=== PATIENT | female | born 1930 | race Caucasian/White ===

== ENCOUNTER → 2017-02-04 | Outpatient (CLI) | payer MEDICARE, OTHER, MEDICAID ==
[~2017-02-04] MED LIST: ALDACTONE 25MG25 MG PO; ASPIRIN REGIMEN81 MG PO; ATORVASTATIN CA10 MG PO; ATORVASTATIN CA20 MG PO; BRILINTA90 MG PO; CARVEDILOL 1212.5 MG PO; CARVEDILOL3.125 MG PO; DIGOXIN0.125 MG PO; ESTRACE 1MG TABL1 MG PO; FUROSEMIDE40 MG PO; GABAPENTIN300 MG PO; ISOSORBIDE MONO30 MG PO; K-DUR 20MEQ TA20 MEQ PO; KEFLEX 500MG.500 MG PO; LASIX 40MG. TAB40 MG PO; LEVOTHYROXINE0.2 MG PO; LISINOPRIL2.5 M1 PO; MAXZIDE 25 MG-31 TAB PO; MAXZIDE 50 MG-71 TAB OR; METOPROLOL100 MG PO; NAPROXEN500 MG PO; NITROGLYCERIN0.4 MG SL; OXAZEPAM 10MG C10 M1 PO; POTASSIUM CHLO20 ME2 PO; TRAZODONE150 MG PO; TRIAMTERENE/HCT1 CA1 PO; TYLENOL W/CODEI1 TA2 PO; VITAMIN D32000 I2 PO
--- NOTE | 2017-02-04 15:25 | RADIOLOGY REPORT PS360 ---
LOWER LEG-RT HISTORY: INJURY OF RT LOWER LEGinjury of right lower leg fell one week ago with contusion swelling anterior aspect of leg previous vein stripping Patient Age: 86 years: Female Ordering Physician: Angela SINGH TECHNIQUE: 2 view right lower leg COMPARISON : FINDINGS . Tibia and fibula intact with no fracture evident. Bones well mineralized Numerous vascular clips along the medial aspect of the right lower leg from previous vein stripping 2 views of ankle and knee included on this lower leg study are grossly unremarkable although these joints not optimally visualized. There is soft tissue swelling is seen overlying anterior aspect of the mid shaft of tibia. Bone beneath this area intact. IMPRESSION: Right lower leg intact.. No fracture. Mild soft tissue overlying mid shaft of tibia noted
== END ==
LOC: RAD 13:59
DX: S89.91XD Unspecified injury of right lower leg, subsequent encounter (principal)

== ENCOUNTER 2017-02-14 16:33 | Inpatient (IN) | payer MEDICARE, OTHER, MEDICAID ==
[~2017-02-14] VITALS: Ht 165.1 cm; Wt 68.9 kg
[~2017-02-14 16:33] MED LIST changes: -ALDACTONE 25MG25 MG PO; -ASPIRIN REGIMEN81 MG PO; -BRILINTA90 MG PO; -CARVEDILOL 1212.5 MG PO; -DIGOXIN0.125 MG PO
[2017-02-14 16:34] VITALS: BP 136/87
--- NOTE | 2017-02-14 17:03 | Emergency Room Report ---
History of Present Illness Time Seen by [id number] Presenting Problem in Triage Pt arrived:Wheelchair Presenting Problem:PT DAUGHTER REPORT PT HAS BEEN CONFUSED ALL DAY, STATES SHE WAS NORMAL YESTERDAY. STATES TOOK PT TO PCP WHO SENT PT TO ER FOR FURTHER EVALUATION Onset of symptoms date/time:02/14/17/ or onset unknown for:MEDICAL HX UNKNOWN Treatment Prior to Arrival: [employer] Provided by: Sepsis Risk Assessment: Temp: 97.9 B/P: 136/87 MAP: 103 Pulse: 109 Resp: 18 Recent fever? N Clinical Suspician of Infection? N Mental Status: 2 - Mildly Altered Sepsis Risk:Low Sepsis Risk Have you (or family members/close friends) recently traveled outside the [place]? N If Yes, where/when: Have you had exposure to infectious disease within the past month? N TB? Other? Specify: Pt with hx PD; chronic tremulousness. Family reports that she seems a little confused today. The patient believes it is 1970. She states she got up this morning, felt normal, ate a honeybun, then felt sick to her stomach. She points to her chest when she says, "I just feel real sick". No SOB, no syncope; she lives alone. ALLERGIES Coded Allergies: No Known Allergies (05/29/15) Home Medications Active Scripts NITROGLYCERIN (Nitrostat) 0.4 MG SL [id number] PRN CHEST PAIN #30 TAB Prov: 12/23/16 Carvedilol (Carvedilol 3.125MG) 3.125 MG PO BID #60 TAB Ref 1 Prov: 12/23/16 Isosorbide Mononitrate (Isosorbide Mononitrate ER) 30 MG PO DAILY #30 TAB Ref 1 Prov: 12/23/16 Lisinopril 2.5 MG PO DAILY #30 TAB Ref 1 Prov: 12/23/16 Oxazepam 10 MG PO BID #60 CAPSULE Ref 1 Prov: 12/23/16 Reported Medications POTASSIUM CHL (Potassium Chloride) 40 MEQ PO BID CHOLECALCIFEROL (VITAMIN D3) (Vitamin D-3) 2,000 IU PO DAILY Gabapentin (Gabapentin 300MG) 600 MG PO QHS Gabapentin (Gabapentin 300MG) 300 MG PO DAILY ATORVASTATIN CALCIUM (ATORVASTATIN 20MG) 20 MG PO QHS Estradiol (Estrace 1MG Tablet) 1 MG PO QHS Trazodone Hcl (Trazodone HCl) 150 MG PO QHS Levothyroxine Sodium 0.2 MG PO DAILY Furosemide (Furosemide 40MG) 40 MG PO DAILY History Medical History General CAD? Yes Angina: Yes SC: Yes Hypertension? Yes Hyperlipidemia? Yes CHF? No DVT? No PE? No COPD? No Asthma? No Anemia? No GERD? No Gastric ulcers? No GI Bleed? No Hernia? No Thyroid Problems? No Hypothyroidism? No CVA? No Seizures? No Diabetes? No Renal Insuffiency? No End Stage Renal Disease? No UTI? No Stones? No BPH? No GB Disease: No Nephritic Syndrome? No Asplenia? No Hepatitis? No Sickle Cell Disease? No Arthritis? No Migraines? No Cataracts? No Glaucoma? No MRSA? No HIV? No TB? No Anxiety? No Depression? No Cancer? No More? Yes Additional hx: TREMORS, PARKISONS Immunization Hx DT/Tetanus Unknown Flu 2015-16FSN Pneumonia Received In Past Surgical Hx Previous Surgery?Y Coronary Artery Bypass TUBAL LIGATION HYSTERECTOMY CARDIAC STENTS Social History Smoking Hx Smoker: Never Smoker Tobacco: No Alcohol Alcohol: No Review of Systems All Other Systems Reviewed and Negative Cardiovascular see HPI Gastrointestinal see HPI, nausea Genitourinary frequency. denies: dysuria, hematuria. Psychiatric/Neurological see HPI Physical Exam Vital Signs Vital Signs Date Time Temp Pulse Resp B/P Pulse O2 O2 Flow FiO2 Ox Delivery Rate 02/14 1813 109 18 146/93 96 02/14 1634 97.9 109 18 136/87 93 General Appearance normal appearance, WD/WN, no apparent distress (PD tremors noted) Eye Exam - bilateral eye normal exam, bilateral eye PERRL, bilateral eye EOMI (no diplopia) Neck normal inspection, non-tender, supple, full range of motion Respiratory Status Yes: trachea midline, chest symmetrical, non tender chest. No: respiratory distress, tender on palpation, use of accessory muscles, pain on inspiration, pain on expiration, productive cough, non productive cough. Lung Sounds bilateral: normal breath sounds, lungs clear. Cardiovascular normal exam, regular rate/rhythm, no peripheral edema, no gallop, no JVD, no murmur, no rub Gastrointestinal normal bowel sounds, normal exam, non tender, soft, no organomegaly, no pulsatile mass, no guarding, no rebound Extremities non-tender, normal range of motion, normal capillary refill, no calf tenderness, steristrips to pretibial area, no secondary infection or drainage noted. Strength 5 Upper Ext (L), 5 Upper Ext (R), 5 Lower Ext (L), 5 Lower Ext (R) Neurologic PD tremor, coarse, especially with head and neck region; speech clear ; alert; she knows her name and location, disoriented to year. Nonfocal exam. Medical Decision Making LABS/Meds/Orders Pt receiving controlled substance in ED? No Results/Orders Laboratory Tests 02/14/17 1830: WBC 9.9, RBC 3.92 L, Hgb 11.5 L, Hct 35.7 L, MCV 91.0, RDW 14.1, Plt Count 235, MPV 7.9, Gran % 80.7 H, Gran # 8.0 H, Lymphocytes % 11.0, Monocytes % 6.9 , Eosinophils % 1.0, Basophils % 0.4, Lymphocytes # 1.1, Monocytes # 0.7, Eosinophils # 0.1, Basophils # 0.0, PUBS MCHC 32.1, MCH 29.3 02/14/17 1730: Lipase 131 02/14/17 1730: Creatine Kinase 58, CK-MB (CK-2) Rel Index 10.5 *H, CK and CKMB Interp 6.1 H, Troponin I 1.34 H 02/14/17 1730: Sodium 141, Potassium 4.1, Chloride 105, Carbon Dioxide 29, BUN 13, Creatinine 1.0, Estimated Creat Clear 46 L, Estimated GFR (MDRD) 52 L, Glucose 128 H, Calcium 9.2, Total Bilirubin 0.7, AST 8 L, ALT 8 L, Alkaline Phosphatase 93, Total Protein 7.2, Albumin 3.8, Globulin 3.4 H, Albumin/Globulin Ratio 1.1 02/14/17 1700: Urine Color YELLOW, Urine Appearance CLEAR, Urine pH 5.0, Ur Specific [place] 1.020, Urine Protein NEGATIVE, Urine Ketones NEGATIVE, Urine Blood NEGATIVE, Urine Nitrate NEGATIVE, Urine Bilirubin NEGATIVE, Urine Urobilinogen 0.2, Ur Leukocyte Esterase NEGATIVE, Urine RBC OCC, Urine WBC OCC, Ur Squamous Epith Cells 20-50, Urine Bacteria 2+, Hyaline Casts 10-20, Urine Glucose NEGATIVE Current Medication Orders Sig/Xu Start time Last Medication Dose Route Stop Time Status Admin Aspirin 324 MG ONCE ONE 02/14 184 DC PO 02/14 184 Metoprolol Succinate 25 MG Q6H6 02/14 184 AC PO Sodium Chloride 10 ML PRN PRN 02/14 1645 AC IV 02/15 1641 Orders Procedure Date/time Status DIET-NOTHING BY MOUTH 02/15 B Active Decision to admit 02/[address] HEAD REQ 02/14 1720 Complete CHEST-AP VIEW ONLY 02/14 1720 Active LIPASE 02/14 172 Complete ELECTROCARDIOGRAM REQUEST 02/14 1711 Active CARDIAC ENZYMES 02/14 1711 Complete CULTURE, URINE 02/14 1700 Active IV SALINE LOCK 02/14 1641 Active URINALYSIS/COMPLETE 02/14 1641 Complete CBC WITH AUTO DIFF 02/14 164 Complete CHEM 12 PROFILE 02/14 1641 Complete CM/EKG CM/EKG EKG rate (109 Stach occ APC), no evid. of ischemic chgs, normal QRS (first degree AVB) XRAY/CT/US XRAY/CT/US XRAY chest XR interpretation by reviewed by me Xray Results normal/NAD, CM, apical thickening, gonzalez. wires; no change from 12/21/[address] interpretation by reviewed by me (report reviewed) Time results known: 1806 CT Results normal/NAD, R sphenoid sinus disease, neg acute per report Consult MD Physician Consult Consult/PCP Dr. Wayne: admit PCP; gave med orders for cardiac meds Time Called 1820 Reason Cardiology eval/care Progress ED Progress Notes 1 Date 02/14/17 Time 1837 Comment Patient is not uncomfortable. Family states she has always said she would not want to be resuscitated or put on a ventilator. She is a little bit confused but is able to verbalize this with son at bedside as witness. They are comfortable with medical intervention. ED Progress Notes 2 Date 02/14/17 Time 190 Comment The son and daughter and patient have spent time discussing code status and now have updated me that they definitely want CPR done and intubation. We reviewed risks vs. benefits in detail and this is their final decision prior to transfer to floor, to be full code. Departure Departure Time of Disposition 1901 Disposition Still a Patient Clinical Impression Primary Impression: Elevated troponin Secondary Impressions: Confusion Condition STABLE Referrals [facility] (Family) ED Critical Care Critical Care No at 1906
[2017-02-14 17:05] LABS: URINE BILIRUBIN - DIPSTICK NEGATIVE (NEG); URINE BLOOD NEGATIVE (NEG)
[2017-02-14 17:21] LABS: URINE SQUAMOUS CELLS 20-50 #/hpf (0-5)
--- NOTE | 2017-02-14 17:55 | RADIOLOGY REPORT PS360 ---
CT HEAD W/O CONTRAST HISTORY: Confusion, altered mental status, altered level of consciousness CONFUSED, HX PD ORDERING PHYSICIAN: Maggy Abdul MD PATIENT AGE: 87 years COMPARISON: 12/21/2016 TECHNIQUE: Axial images obtained without contrast. Brain and bone windows reviewed. FINDINGS: No midline shift, mass effect, intracranial hemorrhage, hydrocephalus, or extra-axial fluid collection is evident. There is generalized atrophy. Diffuse vascular calcification is noted. The calvarium has an unremarkable appearance. No mastoid effusion. Moderate opacification involves the right aspect of the sphenoid sinus. IMPRESSION: 1. No change with no acute finding. 2. Right sphenoid sinus disease
[2017-02-14 18:44] LABS: LYMPH # 1.1 K/mm3 (0.7-4.5)
[2017-02-14 18:45] LABS: HEMOGLOBIN 11.5 g/dL (12.2-16.2)
--- NOTE | 2017-02-14 20:31 | RADIOLOGY REPORT PS360 ---
CHEST-AP VIEW ONLY Ordering physician: Maggy Abdul MD Age: 87 years Female INDICATION: chest symptomsmalaise, nausea PROCEDURE: AP portable upright chest. In wheelchair. COMPARISON Prior chest film from 12/21/2016 & May 2015 used as comparison FINDINGS: . Previous sternotomy likely CABG again noted. Cardiomegaly is more evident in 2014 but similar to the December 2016 exam.. Tortuous aorta. .. Additional vascular engorgement today. With likely mild CHF compared previous studies. . accentuation markings right perihilar region to the right infrahilar region. More so than left likely related to the centralVascular prominence versus possibly some mild airway thickening right greater than left. No pleural effusions. . Ana and mediastinal structures appear similar again noting calcified aortic knob and tortuous descending aorta IMPRESSION ---- Cardiomegaly. Sternotomy likely CABG. vascular engorgement/ suspect mild vascular congestion compared to prior studies.. -Most notable right perihilar and right infrahilar region.. No pleural effusion
[2017-02-14 20:48] VITALS: BP 164/93
[2017-02-14 21:02] VITALS: BP 128/89
[2017-02-14 21:06] VITALS: BP 128/89
[2017-02-15] VITALS (15 sets, daily range): BP systolic 104–146; BP diastolic 54–91
[2017-02-15 06:52] LABS: HEMOGLOBIN 12.3 g/dL (12.2-16.2); LYMPH # 1.2 K/mm3 (0.7-4.5); LYMPH % 9.9 % (10-50.0)
--- NOTE | 2017-02-15 07:16 | HISTORY AND PHYSICAL REPORT ---
Demographics: Admit date: 02/14/17 Chief complaint: Confusion PRIMARY DIAGNOSIS: NON-st ELEVATION MYOCARDIAL INFARCTION Allergies: Coded Allergies: No Known Allergies (05/29/15) History of present illness: History of present illness: 87-year-old female with known coronary artery disease and ischemic cardiomyopathy presented to the hospital after being seen in the office with confusion. Patient was referred to the emergency department for workup. Patient reported a one day history of increasing confusion at home with generalized weakness and onset of nausea. Patient also reported chest pain. This morning she indicates pain in the upper chest. She cannot describe the pain other than saying it hurt. Workup in the emergency department revealed an elevated troponin. Dr. Wayne was contacted and he recommended loading the patient with aspirin Brillinta. Patient has been admitted and was also placed on home beta blockers, lisinopril and atorvastatin. This morning the patient continues to complain of nausea and feeling hot. She is oriented to person and place but not year. Past medical history: Family HX Family Hx Insignificant No Diabetes No CAD Yes Hypertension Yes Hyperlipidemia Yes Cancer Yes TB No Immunization HX DT/Tetanus Unknown Flu 2014-FSN Pneumonia Received In Past TB Test in last year Yes Result Negative General CAD? Yes Angina: Yes CA: Yes Hypertension? Yes Hyperlipidemia? Yes CHF? No DVT? No PE? No COPD? No Asthma? No Anemia? No GERD? No Gastric ulcers? No GI Bleed? No Hernia? No Thyroid Problems? No Hypothyroidism? No CVA? No Seizures? No Diabetes? No Renal Insuffiency? No UTI? No Stones? No BPH? No GB Disease: No Nephritic Syndrome? No Asplenia? No Hepatitis? No Sickle Cell Disease? No Arthritis? No Migraines? No Cataracts? No Glaucoma? No MRSA? No HIV? No TB? No Anxiety? No Depression? No Cancer? No More? Yes Additional hx: TREMORS, PARKISONS Past Surgical HX Previous Surgery?Y Coronary Artery Bypass TUBAL LIGATION HYSTERECTOMY CARDIAC STENTS Current home meds: Active Scripts NITROGLYCERIN (Nitrostat) 0.4 MG SL [id number] PRN CHEST PAIN #30 TAB Prov: 12/23/16 Carvedilol (Carvedilol 3.125MG) 3.125 MG PO BID #60 TAB Ref 1 Prov: 12/23/16 Isosorbide Mononitrate (Isosorbide Mononitrate ER) 30 MG PO DAILY #30 TAB Ref 1 Prov: 12/23/16 Lisinopril 2.5 MG PO DAILY #30 TAB Ref 1 Prov: 12/23/16 Oxazepam 10 MG PO BID #60 CAPSULE Ref 1 Prov: 12/23/16 Reported Medications POTASSIUM CHL (Potassium Chloride) 40 MEQ PO BID CHOLECALCIFEROL (VITAMIN D3) (Vitamin D-3) 2,000 IU PO DAILY Gabapentin (Gabapentin 300MG) 600 MG PO QHS Gabapentin (Gabapentin 300MG) 300 MG PO DAILY ATORVASTATIN CALCIUM (ATORVASTATIN 20MG) 20 MG PO QHS Estradiol (Estrace 1MG Tablet) 1 MG PO QHS Trazodone Hcl (Trazodone HCl) 150 MG PO QHS Levothyroxine Sodium 0.2 MG PO DAILY Furosemide (Furosemide 40MG) 40 MG PO DAILY Social Hx: Smoking HX Tobacco No Are you/the child exposed to second-hand smoke: No Alcohol Alcohol: No Hx of Drug Use Drug Use? No Patien't marital status is Patient's support system is good Review of systems: Constitutional No: chills, diaphoresis, fever. Respiratory cough, shortness of breath. Cardiovascular chest pain Gastrointestinal/Abdominal nausea Genitourinary no symptoms reported. Musculoskeletal no symptoms reported. Neurological Yes: tremors. Exam: Lab data for last 24 hours: Laboratory Tests 02/15/17 0622: Sodium 143, Potassium 5.0, Chloride 107, Carbon Dioxide 29, BUN 18, Creatinine 1.0, Estimated Creat Clear 45 L, Estimated GFR (MDRD) 52 L, Glucose 128 H, Calcium 9.3, WBC 12.4 H, RBC 4.32, Hgb 12.3, Hct 39.5, MCV 91.4, RDW 14.2, Plt Count 247, MPV 7.7, Gran % 82.9 H, Gran # 10.3 H, Lymphocytes % 9.9 L, Monocytes % 6.6, Eosinophils % 0.4, Basophils % 0.2, Lymphocytes # 1.2, Monocytes # 0.8, Eosinophils # 0.1, Basophils # 0.0, PUBS MCHC 31.1 L, MCH 28.4 02/14/17 1830: WBC 9.9, RBC 3.92 L, Hgb 11.5 L, Hct 35.7 L, MCV 91.0, RDW 14.1, Plt Count 235, MPV 7.9, Gran % 80.7 H, Gran # 8.0 H, Lymphocytes % 11.0, Monocytes % 6.9 , Eosinophils % 1.0, Basophils % 0.4, Lymphocytes # 1.1, Monocytes # 0.7, Eosinophils # 0.1, Basophils # 0.0, PUBS MCHC 32.1, MCH 29.3 02/14/171729: Lipase 131 02/14/171729: Creatine Kinase 58, CK-MB (CK-2) Rel Index 10.5 *H, CK and CKMB Interp 6.1 H, Troponin I 1.34 H 02/14/171729: Sodium 141, Potassium 4.1, Chloride 105, Carbon Dioxide 29, BUN 13, Creatinine 1.0, Estimated Creat Clear 46 L, Estimated GFR (MDRD) 52 L, Glucose 128 H, Calcium 9.2, Total Bilirubin 0.7, AST 8 L, ALT 8 L, Alkaline Phosphatase 93, Total Protein 7.2, Albumin 3.8, Globulin 3.4 H, Albumin/Globulin Ratio 1.1 02/14/171699: Urine Color YELLOW, Urine Appearance CLEAR, Urine pH 5.0, Ur Specific [place] 1.020, Urine Protein NEGATIVE, Urine Ketones NEGATIVE, Urine Blood NEGATIVE, Urine Nitrate NEGATIVE, Urine Bilirubin NEGATIVE, Urine Urobilinogen 0.2, Ur Leukocyte Esterase NEGATIVE, Urine RBC OCC, Urine WBC OCC, Ur Squamous Epith Cells 20-50, Urine Bacteria 2+, Hyaline Casts 10-20, Urine Glucose NEGATIVE Microbiology 02/14 1700 URINE CC: Urine Culture - RECD Admission vital signs: 1ST Vital Signs Result Date Time Pulse Ox 93 02/14 1634 B/P 136/87 02/14 1634 Temp 97.9 02/14 1634 Pulse 109 02/14 1634 Resp 18 02/14 1634 O2 Delivery ROOM AIR 02/15 2048 O2 Flow Rate 2 02/14 2206 Exam General appearance: alert, awake, no acute distress, HEAD TREMOR Eyes: anicteric Cardiovascular: regular rate & rhythm Respiratory: COARSE BREATH SOUNDS BILATERALLY WITH FAINT RHONCHI ABD: soft, no tenderness Extremities: moves all Plan: Problem List 1. Non-ST elevation myocardial infarction (NSTEMI) 2. Ischemic cardiomyopathy 3. Hypertension Plan: 1. Continue patient's home medications 2. Cardiology consult 3. Patient's lung exam is abnormal I will repeat her chest x-ray later today after cardiology evaluation is complete
--- NOTE | 2017-02-15 07:57 | CONSULT NOTE ---
Standard Demographics Patient Demo Date of Consultation: 02/15/17 Referring Provider: Alban Saldivar MD Reason for Consultation: Elevated troponin/NSTEMI PRIMARY DIAGNOSIS: NON-st ELEVATION MYOCARDIAL INFARCTION Problem list Problem list: 1. CAD A. 7 vessel CABG, about 1996 B. Coronary stents placed about 2005 with notation of unusual anatomy in that all coronary arteries arise from the RCA. C. Echo, 2012, severe LV dysfunction with EF 20-25%, akinetic apex. D. Echo, 12/2016, EF 20% with apical akinesis. 2. Essential tremor 3. Hypertension 4. Hyperlipidemia 5. Carotid artery stenosis A. Carotid ultrasound, 2014 with 20-49% SUZY stenosis. 6. Chronic kidney disease, stage III History of present illness: History of present illness: 87-year-old female with known coronary artery disease and ischemic cardiomyopathy presented to the hospital after being seen in the office with confusion. Patient was referred to the emergency department for workup. Patient reported a one day history of increasing confusion at home with generalized weakness and onset of nausea. Patient also reported chest pain. This morning she indicates pain in the upper chest. She cannot describe the pain other than saying it hurt. Workup in the emergency department revealed an elevated troponin. Dr. Wayne was contacted and he recommended loading the patient with aspirin Brillinta. Patient has been admitted and was also placed on home beta blockers, lisinopril and atorvastatin. This morning the patient continues to complain of nausea and feeling hot. She is oriented to person and place but not year. The above per Dr. Saldivar's Patient describes an intermittent burning sensation in the chest without aggravating or alleviating symptoms. Symptoms were present during evaluation this morning resolved after only a couple minutes. Patient is oriented to person and month. She thinks it is 2008. Past Medical History: General: Hypertension Yes CVA No Seizures No TB No COPD No Asthma No Diabetes No Angina Yes OH Yes Hyperlipidemia Yes Urinary No Cancer No Rheumatic H.D. No Ulcers No MRSA No GB Disease No Additional hx TREMORS, PARKISONS Past Surgical HX: Previous Surgery?Y Coronary Artery Bypass TUBAL LIGATION HYSTERECTOMY CARDIAC STENTS Allergies Coded Allergies: No Known Allergies (05/29/15) Home medications: Active Scripts NITROGLYCERIN (Nitrostat) 0.4 MG SL [id number] PRN CHEST PAIN #30 TAB Prov: 12/23/16 Carvedilol (Carvedilol 3.125MG) 3.125 MG PO BID #60 TAB Ref 1 Prov: 12/23/16 Isosorbide Mononitrate (Isosorbide Mononitrate ER) 30 MG PO DAILY #30 TAB Ref 1 Prov: 12/23/16 Lisinopril 2.5 MG PO DAILY #30 TAB Ref 1 Prov: 12/23/16 Oxazepam 10 MG PO BID #60 CAPSULE Ref 1 Prov: 12/23/16 Reported Medications POTASSIUM CHL (Potassium Chloride) 40 MEQ PO BID CHOLECALCIFEROL (VITAMIN D3) (Vitamin D-3) 2,000 IU PO DAILY Gabapentin (Gabapentin 300MG) 600 MG PO QHS Gabapentin (Gabapentin 300MG) 300 MG PO DAILY ATORVASTATIN CALCIUM (ATORVASTATIN 20MG) 20 MG PO QHS Estradiol (Estrace 1MG Tablet) 1 MG PO QHS Trazodone Hcl (Trazodone HCl) 150 MG PO QHS Levothyroxine Sodium 0.2 MG PO DAILY Furosemide (Furosemide 40MG) 40 MG PO DAILY Current Medications: Current Medications Enoxaparin Sodium 70 MG BID SC Furosemide 40 MG DAILY PO (CAN) Gabapentin 300 MG DAILY PO Isosorbide Mononitrate 30 MG DAILY PO Lisinopril 2.5 MG DAILY PO Furosemide 20 MG ONCE ONE IV (UNV) Metoprolol Succinate 0 .STK-MED ONE PO (DC) Ondansetron HCl 4 MG Q6HP PRN IV Ondansetron HCl 0 .STK-MED ONE .ROUTE (DC) Metoprolol Succinate 0 .STK-MED ONE PO (DC) Atorvastatin Calcium 20 MG QHS PO Carvedilol 3.125 MG BID PO Enoxaparin Sodium 73.936 MG BID SC (DC) Gabapentin 600 MG QHS PO Oxazepam 10 MG BID PO Potassium Chloride 40 MEQ BID PO Nitroglycerin 0.4 MG [id number] PRN SL Sodium Chloride 10 ML PRN PRN IV Ticagrelor 180 MG DAILY PO (UNV) Aspirin 0 .STK-MED ONE .ROUTE (DC) Ticagrelor 180 MG DAILY-DM PO (DC) Aspirin 324 MG ONCE ONE PO (DC) Metoprolol Succinate 25 MG Q6H6 PO Sodium Chloride 10 ML PRN PRN IV Immunization HX DT/Tetanus Unknown Flu [id number] Pneumonia RECEIVED IN PAST TB Test in last year Yes Result Negative Family history Family HX Family Hx Insignificant No Diabetes No CAD Yes Hypertension Yes Hyperlipidemia Yes Cancer Yes TB No Social Hx: Smoking HX Tobacco No Are you/the child exposed to second-hand smoke: No Alcohol Alcohol: No Hx of Drug Use Drug Use? No Review of systems: Constitutional No: no symptoms reported. Respiratory SOB with excertion. Cardiovascular chest pain Gastrointestinal/Abdominal nausea Genitourinary No: no symptoms reported. Musculoskeletal No: no symptoms reported. Neurological Yes: tremors. Exam: Admission Vital Signs: 1ST Vital Signs Result Date Time Pulse Ox 93 02/14 1634 B/P 136/87 02/14 1634 Temp 97.9 02/14 1634 Pulse 109 02/14 1634 Resp 18 02/14 1634 O2 Delivery ROOM AIR 02/14 2048 O2 Flow Rate 2 02/14 2206 Last Vital Signs: Vital Signs Result Date Time Pulse Ox 91 02/15 0720 B/P 115/85 02/15 0720 O2 Delivery OXYGEN 02/15 0720 Temp 97.9 02/15 0720 Pulse 100 02/15 0720 Resp 20 02/15 0720 O2 Flow Rate 2 02/15 0649 Exam General appearance: awake, no acute distress Neck: carotid bruit Cardiovascular: regular rate and rhythm with faint high-pitched squeaking systolic ejection murmur noted at the LEFT upper sternal border radiating towards the neck. Respiratory: Bi-basilar rales noted with audible wheezing. ABD: soft, no tenderness Extremities: trace edema bilaterally with palpable pulses of the lower extremities bilaterally. Patient has a cut on her lower LEFT leg with Steri- Strips in place. It is in the healing process. Neuro: alert, resting tremor noted. Again patient alert and oriented to place name and month but not year. Laboratory data: Laboratory Tests 02/15/17621: Sodium 143, Potassium 5.0, Chloride 107, Carbon Dioxide 29, BUN 18, Creatinine 1.0, Estimated Creat Clear 45 L, Estimated GFR (MDRD) 52 L, Glucose 128 H, Calcium 9.3 02/15/17 0622: B-Natriuretic Peptide 1140 H, WBC 12.4 H, RBC 4.32, Hgb 12.3, Hct 39.5, MCV 91.4, RDW 14.2, Plt Count 247, MPV 7.7, Gran % 82.9 H, Gran # 10.3 H, Lymphocytes % 9.9 L, Monocytes % 6.6, Eosinophils % 0.4, Basophils % 0.2, Lymphocytes # 1.2, Monocytes # 0.8, Eosinophils # 0.1, Basophils # 0.0, PUBS MCHC 31.1 L, MCH 28.4 02/14/17 1830: WBC 9.9, RBC 3.92 L, Hgb 11.5 L, Hct 35.7 L, MCV 91.0, RDW 14.1, Plt Count 235, MPV 7.9, Gran % 80.7 H, Gran # 8.0 H, Lymphocytes % 11.0, Monocytes % 6.9 , Eosinophils % 1.0, Basophils % 0.4, Lymphocytes # 1.1, Monocytes # 0.7, Eosinophils # 0.1, Basophils # 0.0, PUBS MCHC 32.1, MCH 29.3 02/14/17 173: Lipase 131 02/14/17 173: Creatine Kinase 58, CK-MB (CK-2) Rel Index 10.5 *H, CK and CKMB Interp 6.1 H, Troponin I 1.34 H 02/14/171729: Sodium 141, Potassium 4.1, Chloride 105, Carbon Dioxide 29, BUN 13, Creatinine 1.0, Estimated Creat Clear 46 L, Estimated GFR (MDRD) 52 L, Glucose 128 H, Calcium 9.2, Total Bilirubin 0.7, AST 8 L, ALT 8 L, Alkaline Phosphatase 93, Total Protein 7.2, Albumin 3.8, Globulin 3.4 H, Albumin/Globulin Ratio 1.1 02/14/171699: Urine Color YELLOW, Urine Appearance CLEAR, Urine pH 5.0, Ur Specific [place] 1.020, Urine Protein NEGATIVE, Urine Ketones NEGATIVE, Urine Blood NEGATIVE, Urine Nitrate NEGATIVE, Urine Bilirubin NEGATIVE, Urine Urobilinogen 0.2, Ur Leukocyte Esterase NEGATIVE, Urine RBC OCC, Urine WBC OCC, Ur Squamous Epith Cells 20-50, Urine Bacteria 2+, Hyaline Casts 10-20, Urine Glucose NEGATIVE Microbiology Date/Time Procedure - Status Source Growth 02/14 1700 Urine Culture - RES URINE CC Plan: Assessment: 1. Elevated troponin consistent with non-ST elevation myocardial infarction. Electrocardiogram shows sinus rhythm with first-degree AV block and incomplete LEFT bundle branch block without acute ST segment changes. 2. Known ischemic cardiomyopathy with ejection fraction of approximately 20-25 percent. 3. Congestive heart failure with elevated BNP 1140 and evidence of congestive heart failure on chest x-ray. 4. Known coronary artery disease with previous bypass and coronary stenting. 5. History of hypertension 6. Chronic kidney disease stage II 7. History of hyperlipidemia 8. History of underlying dementia 9. History of essential tremor Recommendations: 1. Discussed with Dr. Wayne. We'll repeat cardiac enzymes. If enzymes continue to rise then consider proceeding with cardiac catheterization. 2. Continue standard treatment for congestive heart failure including diuretics, SANDRINE inhibitor, beta dee and spironolactone therapy. at 0942
--- NOTE | 2017-02-15 09:12 | PHARMACY CLINIC NOTE ---
Patient Demographics Patient Demographics Admission date: 02/15/17 Date: 02/15/17 Time: 0911 Allergies Coded Allergies: No Known Allergies (05/29/15) HEIGHT- FT: 5 IN: 5.00 K.782 VTE General Information Labs: Laboratory Tests 02/15 02/14 0622 1830 Hematology Hgb (12.2 - 16.2 g/dL) 12.3 11.5 L Hct (37.0 - 47.0 %) 39.5 35.7 L Plt Count (142 - 424 K/mm3) 247 235 Disclaimer The following section includes nursing documentation that has been pulled in for pharmacy review. Patient's VTE score: 4 Patient's VTE Risk: LOW RISK Clinical trial participant? No VTE prophylaxis [id number] [id number] VTE prophylaxis ordered? Yes Type of prophylaxis/treatment: Lovenox at 0911
--- NOTE | 2017-02-15 10:23 | RADIOLOGY REPORT PS360 ---
CHEST-PORTABLE HISTORY: COUGH, CHF ORDERING PHYSICIAN: Alban Saldivar MD PATIENT AGE: 87 years COMPARISON: 02/14/2017 FINDINGS: There is cardiomegaly. There has been a prior median sternotomy. Previously noted vascular and coarse but has shown some improvement. There has been interval development of consolidation in the right lower lung zone suspicious for an area of pneumonia. The remaining lungs are clear. IMPRESSION: 1. Improvement in vascular congestion. 2. Interval development of right lower lobe infiltrate
--- NOTE | 2017-02-15 12:50 | RADIOLOGY REPORT PS360 ---
CARDIAC CATHETERIZATION DATE OF CATHETERIZATION:02/15/2017 12:24 PM PROCEDURES: 1. Left heart catheterization 2. Left ventriculogram 3. Selective coronary angiogram 4. Left internal mammary angiography 5. Selective engagement of the saphenous vein graft to the right coronary artery 6. Elective engagement of the saphenous vein graft to the circumflex artery 7. Drug-eluting stent deployment to the proximal left anterior descending artery INDICATION FOR TEST: 1. Acute non-ST elevation myocardial infarction 2. Coronary artery disease 3. History of coronary artery bypass grafting Informed consent was obtained prior to the procedure. COMPLICATIONS: None ESTIMATED BLOOD LOSS: Less than 10 ml. TECHNIQUE: One percent lidocaine was used to anesthetize the right groin. The right femoral artery was accessed via the Seldinger technique. A 4-Angolan sheath was placed in the right femoral artery. Over a 3 J-wire a JL 4 JR4 catheter were used to perform left heart catheterization left ventriculogram and selective coronary angiography. Nonselective angiography was performed involving the left internal mammary artery. Selective engagement was performed using the JR4 catheter into the 2 vein grafts one to the right coronary artery and the other one to the circumflex artery. At the end of the diagnostic angiogram 7000 units of heparin was administered intravenously creating an ACT of 300 seconds. An additional 2000 units of heparin was administered intravenously after the ACT of 300 was obtained. The 4 Angolan sheath was exchanged for a 6 Angolan sheath and a 3 DRC guide catheter was used intubate the right coronary artery. A choice PT extra-support wire was then placed in the right coronary artery and then into the proximal mid distal left anterior descending artery. A 2 mm x 12 mm balloon was taken at 20 barbara to predilate and this was followed by a 2.25 x 22 mm resolute [place] stent deployed at 20 barbara in the proximal LAD reducing the stenosis to 0%. BRENNAN-3 flow was present before and after the procedure involving the LAD. At the end of the procedure the apparatus was removed the groin is reprepped closure changed sheath was removed good hemostasis was achieved using Perclose device patient was transferred to the postop holding area in stable condition ANGIOGRAPHIC RESULTS: 1. The left anterior descending artery originates from the proximal dominant right coronary artery which resides within the right coronary cusp. Proximally there is a focal 90% stenosis. The mid LAD is then occluded and fills via the left internal mammary artery. 2. The circumflex artery originates from the proximal right coronary artery which resides in the right coronary cusp. This vessel has proximal 30% stenoses and sequential 60 and 50% stenoses in the distal segment along an area that is 2.5 mm in diameter. 3. The right coronary artery is a dominant vessel and results in size in the right coronary cusp and is occluded proximally. Distally the vessel fills via a dense collateral network from mostly the circumflex artery via a Kugel collateral 4. The PATEL ventriculogram reveals moderate left ventricular dilatation with anterior wall hypokinesis estimated ejection fraction 20-25% 5. The left ventricular end-diastolic pressure 10 mmHg 6. The left internal mammary artery is a widely patent graft which makes its anastomosis on the mid to distal LAD and does not backfill the [place] vessel. The antegrade flow from the LOPEZ graft supplies a moderate amount of distal and apical anterior wall 7. The saphenous vein graft to the right coronary artery is proximally occluded 8. The saphenous vein graft to the first and second obtuse marginal artery is widely patent graft with a proximal 40% eccentric stenosis IMPRESSION: 1. 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 Severe to critical disease in the proximal LAD 3. Successful stenting the proximal LAD severe to critical disease reduced to 0% with 1 drug-eluting stent 4. Persistent moderate stenosis in the [place] circumflex artery which still supplies a large amount of myocardium primarily via dense collateral network 5. Chronically occluded right coronary artery which fills via a dense collateral Kugel network primarily through the circumflex artery 6. Chronically occluded saphenous vein graft to the right coronary artery 7. Nonflow limiting disease in the saphenous vein graft to the first and second obtuse marginal artery that does not backfill or communicate with the [place] circumflex artery 8. Patent LOPEZ graft to the mid and distal LAD which supplies the distal anterior and apical wall which does not backfill or communicate in a retrograde manner with the proximal LAD system 9. Severe left ventricular dysfunction with large anterior wall defect 10. Normal left ventricular end-diastolic pressure PLAN: 1. Brilinta 90 mg twice a day 2. Aspirin 81 mg daily 3. Standard therapy for systolic heart failure including carvedilol and kristina inhibitors 4. Standard therapy with Loop diuretics combined with spironolactones 5. Digoxin 0.125 daily 6. High intensity statin therapy with an LDL goal less than 55 7. Avoidance of tobacco products 8. Cardiac rehabilitation 9. I do not believe patient is an appropriate candidate for a lifevest. In 40 days we can reassess her ejection fraction and discuss with patient and family whether or not she has a candidate for an AICD. My initial inclination or impression would be not to place a defibrillator however I believe it is appropriate to offer the patient and the family the standard of care as well as the risks benefits of the procedure.
[2017-02-16] VITALS (10 sets, daily range): BP systolic 100–121; BP diastolic 62–78
--- NOTE | 2017-02-16 06:38 | ACUTE CARE PROGRESS NOTE (QUA) ---
Progress Notes Subjective Date 02/16/17 Time 0636 Note Patient underwent successful stenting of the left anterior descending yesterday. She tells me this morning she feels better. She denies nausea. She does not remember much of the events of yesterday. She denies shortness of breath. Repeat chest x-ray yesterday revealed a RIGHT lower lobe pneumonia. She is awake and alert this morning. Lungs have faint rales at the RIGHT lung base. Heart has a regular rate and rhythm. Abdomen is soft and nontender. Continue Levaquin for pneumonia. Transfer out of step down this morning. Continue beta dee, SANDRINE inhibitor, diuretics. Objective Findings Last VS-Temp:98.3 B/P:120/74 Pulse:87 Resp:20 SaO2:100 OXYGEN Last weight lbs:153 oz:7 K.598 Method:Bed Scales Assessment/Plan Problem List 1. Non-ST elevation myocardial infarction (NSTEMI) 2. Ischemic cardiomyopathy 3. Hypertension Patient condition Stable Plan: continue current care This inpt stay is expected to cross 2 MNs from start of care Yes at 0637
--- NOTE | 2017-02-16 11:38 | ACUTE CARE PROGRESS NOTE (QUA) ---
Progress Notes Subjective Date 02/16/17 Time 0930 Note 87 yo WF in bed in NAD. States she is feeling better without further indigestion symptoms since her coronary stent placed yesterday. Objective Findings Last VS-Temp:97.6 B/P:114/62 Pulse:88 Resp:20 SaO2:98 OXYGEN Last weight lbs:153 oz:7 K.598 Method:Bed Scales Exam General appearance: alert, awake, no acute distress Cardiovascular: regular rate & rhythm Respiratory: rhonchi Reviewed: medications, vital signs, lab results Assessment/Plan Problem List 1. Non-ST elevation myocardial infarction (NSTEMI) Assessment/Plan: SRIDHAR to prox LAD, on DAPT. 2. Ischemic cardiomyopathy Assessment/Plan: On coreg, SANDRINE, spironolactone, digoxin and furosemide 3. Hypertension Assessment/Plan: controlled Patient condition Stable Plan: Continue current meds. BMP in AM due to slight increase in BUN today. With patient having some orthostatic dizziness this AM, will decrease diuretics for now. This inpt stay is expected to cross 2 MNs from start of care Yes at 3282
[2017-02-17] VITALS (9 sets, daily range): BP systolic 96–130; BP diastolic 44–73
[2017-02-17 06:11] LABS: LYMPH # 1.1 K/mm3 (0.7-4.5)
[2017-02-17 06:29] LABS: HEMOGLOBIN 10.9 g/dL (12.2-16.2)
--- NOTE | 2017-02-17 07:01 | ACUTE CARE PROGRESS NOTE (QUA) ---
Progress Notes Subjective Date 02/17/17 Time 0700 Note Patient reports no chest pain. She did have some nausea yesterday and became lightheaded with ambulation. She has been weaned off oxygen. She appears well. Lungs still have a faint crackle at the RIGHT lung base. Heart has a regular rate and rhythm. Skin shows multiple ecchymosis on the arms. Continue PT. Increase carvedilol 12.5 mg by mouth twice a day. Continue furosemide, spironolactone, lisinopril. We're waiting to hear back from [facility] in regards to [place] [facility] to continue Levaquin for her pneumonia Objective Findings Last VS-Temp:98.2 B/P:130/59 Pulse:92 Resp:16 SaO2:94 OXYGEN Last weight lbs:151 oz:9 K.748 Method:Bed Scales Laboratory Tests 02/17/17 0600: Sodium 140, Potassium 4.1, Chloride 104, Carbon Dioxide 32, BUN 32 H, Creatinine 1.2 H, Estimated Creat Clear 36 L, Estimated GFR (MDRD) 42 L, Glucose 103, Calcium 8.9, WBC 7.4, RBC 3.75 L, Hgb 10.9 L, Hct 33.3 L, MCV 88.8, RDW 14.2, Plt Count 185, MPV 8.1, Gran % 73.1, Gran # 5.4, Lymphocytes % 15.0, Monocytes % 9.1, Eosinophils % 2.6, Basophils % 0.2, Lymphocytes # 1.1, Monocytes # 0.7, Eosinophils # 0.2, Basophils # 0.0, PUBS MCHC 32.7, MCH 29.1 Assessment/Plan Problem List 1. Non-ST elevation myocardial infarction (NSTEMI) 2. Ischemic cardiomyopathy 3. Hypertension Patient condition Improving Plan: continue current care This inpt stay is expected to cross 2 MNs from start of care Yes at 0701
--- NOTE | 2017-02-17 07:01 | ACUTE CARE PROGRESS NOTE (QUA) ---
Progress Notes Subjective Date 02/17/17 Time 0700 Note Patient reports no chest pain. She did have some nausea yesterday and became lightheaded with ambulation. She has been weaned off oxygen. She appears well. Lungs still have a faint crackle at the RIGHT lung base. Heart has a regular rate and rhythm. Skin shows multiple ecchymosis on the arms. Continue PT. Increase carvedilol 12.5 mg by mouth twice a day. Continue furosemide, spironolactone, lisinopril. We're waiting to hear back from [facility] in regards to nursing home to continue Levaquin for her pneumonia Objective Findings Last VS-Temp:98.2 B/P:130/59 Pulse:92 Resp:16 SaO2:94 OXYGEN Last weight lbs:151 oz:9 K.748 Method:Bed Scales Laboratory Tests 02/17/17 0600: Sodium 140, Potassium 4.1, Chloride 104, Carbon Dioxide 32, BUN 32 H, Creatinine 1.2 H, Estimated Creat Clear 36 L, Estimated GFR (MDRD) 42 L, Glucose 103, Calcium 8.9, WBC 7.4, RBC 3.75 L, Hgb 10.9 L, Hct 33.3 L, MCV 88.8, RDW 14.2, Plt Count 185, MPV 8.1, Gran % 73.1, Gran # 5.4, Lymphocytes % 15.0, Monocytes % 9.1, Eosinophils % 2.6, Basophils % 0.2, Lymphocytes # 1.1, Monocytes # 0.7, Eosinophils # 0.2, Basophils # 0.0, PUBS MCHC 32.7, MCH 29.1 Assessment/Plan Problem List 1. Non-ST elevation myocardial infarction (NSTEMI) 2. Ischemic cardiomyopathy 3. Hypertension Patient condition Improving Plan: continue current care This inpt stay is expected to cross 2 MNs from start of care Yes at 0701
--- NOTE | 2017-02-17 08:20 | ACUTE CARE PROGRESS NOTE (QUA) ---
Progress Notes Subjective Date 02/17/17 Time 0812 Note 87 yo WF in bed eating breakfast in NAD. No complaints of indigestion discomfort. Still unsteady when up out of bed. Planning to go to [place] in AM. Objective Findings Last VS-Temp:98.2 B/P:130/59 Pulse:92 Resp:16 SaO2:94 OXYGEN Last weight lbs:151 oz:9 K.748 Method:Bed Scales Exam General appearance: alert, awake, no acute distress Cardiovascular: regular rate & rhythm Respiratory: clear to auscultation ABD: soft Reviewed: medications, vital signs, lab results Assessment/Plan Problem List 1. Non-ST elevation myocardial infarction (NSTEMI) Assessment/Plan: Continue DAPT 2. Ischemic cardiomyopathy Assessment/Plan: EF about 20%. Will reassess as outpatient but pt not felt to be a candidate for AICD. 3. Hypertension Assessment/Plan: Controlled 4. Systolic CHF with reduced left ventricular function, NYHA class 3 Assessment/Plan: Will need close monitoring of I/O and renal functions to decide on tolerable doses of diuretics without causing dehydration and worsening of unsteadiness when ambulating. Will repeat CXR in AM and BMP. Will decrease lasix to 20 mg daily in setting of spironolactone therapy. Patient condition Stable Plan: See above. This inpt stay is expected to cross 2 MNs from start of care Yes at 0820
--- NOTE | 2017-02-17 15:38 | RADIOLOGY REPORT PS360 ---
CHEST(2 VIEWS-NOT PORTABLE) HISTORY: Shortness of air, pneumonia, CHF Follow up pneumonia and CHF ORDERING PHYSICIAN: Alban Saldivar MD PATIENT AGE: 87 years COMPARISON: 02/15/2017 FINDINGS: There has been a prior median sternotomy. There is mild cardiomegaly without failure. There are small bilateral pleural effusions. Calcified granuloma once again noted in the right midlung. Right lower lobe infiltrate has improved. IMPRESSION: Improvement in right lower lobe infiltrate with small bilateral pleural effusions
[2017-02-18 03:54] VITALS: BP 136/82
--- NOTE | 2017-02-18 07:42 | ACUTE CARE PROGRESS NOTE (QUA) ---
Progress Notes Subjective Date 02/18/17 Time 0740 Patient/family reports: feeling better, no complaints Objective Findings Last VS-Temp:98.1 B/P:136/82 Pulse:90 Resp:22 SaO2:93 ROOM AIR Last weight lbs:152 oz:0 K.946 Method:Bed Scales Exam General appearance: alert, awake, no acute distress Cardiovascular: regular rate & rhythm Respiratory: clear to auscultation Assessment/Plan Problem List 1. Non-ST elevation myocardial infarction (NSTEMI) 2. Ischemic cardiomyopathy 3. Hypertension 4. Systolic CHF with reduced left ventricular function, NYHA class 3 5. Pneumonia of right lower lobe due to infectious organism Patient condition Improving Plan: initiate discharge plan This inpt stay is expected to cross 2 MNs from start of care Yes at 0741
--- NOTE | 2017-02-18 07:45 | Discharge Summary ---
Demographics Admit date: 02/14/17 Discharge date: 02/18/17 Discharge diagnoses Problem List 1. Non-ST elevation myocardial infarction (NSTEMI) 2. Ischemic cardiomyopathy 3. Hypertension 4. Systolic CHF with reduced left ventricular function, NYHA class 3 5. Pneumonia of right lower lobe due to infectious organism History of present illness History of present illness 87-year-old female with known coronary artery disease and ischemic cardiomyopathy presented to the hospital after being seen in the office with confusion. Patient was referred to the emergency department for workup. Patient reported a one day history of increasing confusion at home with generalized weakness and onset of nausea. Patient also reported chest pain. This morning she indicates pain in the upper chest. She cannot describe the pain other than saying it hurt. Workup in the emergency department revealed an elevated troponin. Dr. Wayne was contacted and he recommended loading the patient with aspirin Brillinta. Patient has been admitted and was also placed on home beta blockers, lisinopril and atorvastatin. This morning the patient continues to complain of nausea and feeling hot. She is oriented to person and place but not year. The above per Dr. Saldivar's Patient was admitted on the evening of the . She underwent cardiology consultation on the with subsequent cardiac catheterization. Patient has abnormal coronary anatomy with RIGHT coronary artery being dominant and vessels originating from the RIGHT coronary artery. She required stent to the left anterior descending. She will require joint platelet therapy for 1 year. Patient has severe LV dysfunction and will be placed on standard regimen of beta dee , SANDRINE inhibitor, spironolactone, furosemide. On the morning of the patient was noted to have mild dyspnea and abnormal lung exam. Repeat chest x-ray confirmed the presence of RIGHT lower lobe pneumonia and the patient was started on Levaquin. After cardiac catheterization on the the patient was continued on IV antibiotics and physical therapy was consult to. Patient was felt to be appropriate for group home level of care. [facility] was contacted and accepted the patient. On the patient was discharged to [facility]. Mental status: Oriented to person and place Rehab potential: Fair Prognosis: Fair Medications Medications: Discharge meds are as noted. Follow up Follow up in office in: 3 WEEKS with: Alban Saldivar MD at 0744
--- NOTE | 2017-02-18 07:45 | Discharge Summary ---
Demographics Admit date: 02/14/17 Discharge date: 02/18/17 Discharge diagnoses Problem List 1. Non-ST elevation myocardial infarction (NSTEMI) 2. Ischemic cardiomyopathy 3. Hypertension 4. Systolic CHF with reduced left ventricular function, NYHA class 3 5. Pneumonia of right lower lobe due to infectious organism History of present illness History of present illness 87-year-old female with known coronary artery disease and ischemic cardiomyopathy presented to the hospital after being seen in the office with confusion. Patient was referred to the emergency department for workup. Patient reported a one day history of increasing confusion at home with generalized weakness and onset of nausea. Patient also reported chest pain. This morning she indicates pain in the upper chest. She cannot describe the pain other than saying it hurt. Workup in the emergency department revealed an elevated troponin. Dr. Wayne was contacted and he recommended loading the patient with aspirin Brillinta. Patient has been admitted and was also placed on home beta blockers, lisinopril and atorvastatin. This morning the patient continues to complain of nausea and feeling hot. She is oriented to person and place but not year. The above per Dr. Saldivar's Patient was admitted on the evening of the . She underwent cardiology consultation on the with subsequent cardiac catheterization. Patient has abnormal coronary anatomy with RIGHT coronary artery being dominant and vessels originating from the RIGHT coronary artery. She required stent to the left anterior descending. She will require joint platelet therapy for 1 year. Patient has severe LV dysfunction and will be placed on standard regimen of beta dee , SANDRINE inhibitor, spironolactone, furosemide. On the morning of the patient was noted to have mild dyspnea and abnormal lung exam. Repeat chest x-ray confirmed the presence of RIGHT lower lobe pneumonia and the patient was started on Levaquin. After cardiac catheterization on the the patient was continued on IV antibiotics and physical therapy was consult to. Patient was felt to be appropriate for [facility] level of care. [facility] was contacted and accepted the patient. On the patient was discharged to [facility]. Mental status: Oriented to person and place Rehab potential: Fair Prognosis: Fair Medications Medications: Discharge meds are as noted. Follow up Follow up in office in: 3 WEEKS with: Alban Saldivar MD at 0744
[2017-02-18] MEDS ORDERED: ASPIRIN REGIMEN81 MG PO (07:48)
[2017-02-18] MEDS ORDERED: ALDACTONE 25MG25 MG PO (07:48)
[2017-02-18] MEDS ORDERED: DIGOXIN0.125 MG PO (07:48)
[2017-02-18] MEDS ORDERED: CARVEDILOL 1212.5 MG PO (07:48)
[2017-02-18] MEDS ORDERED: BRILINTA90 MG PO (07:48)
[2017-02-18 08:00] VITALS: BP 137/71
[2017-02-18 11:00] VITALS: BP 137/71
== END 2017-02-18 11:40 | DRG 247 ==
LOC: ER 16:33 → 2ND 18:52 → ER 18:52 → 2ND 20:41 → ICU 02-15 13:01 → 2ND 02-15 18:34
PROVIDERS: Emergency Medicine; Family Medicine; Internal Medicine
PROC: 027034Z Dilation of Coronary Artery, One Artery with Drug-eluting Intraluminal Device, Percutaneous Approach (ICD-10-PCS; principal; 2017-02-15 10:00)
PROC: 4A023N7 Measurement of Cardiac Sampling and Pressure, Left Heart, Percutaneous Approach (ICD-10-PCS; principal; 2017-02-15 10:00)
PROC: B2111ZZ Fluoroscopy of Multiple Coronary Arteries using Low Osmolar Contrast (ICD-10-PCS; principal; 2017-02-15 10:00)
PROC: B2131ZZ Fluoroscopy of Multiple Coronary Artery Bypass Grafts using Low Osmolar Contrast (ICD-10-PCS; principal; 2017-02-15 10:00)
PROC: B2151ZZ Fluoroscopy of Left Heart using Low Osmolar Contrast (ICD-10-PCS; principal; 2017-02-15 10:00)
DX: I21.4 Non-ST elevation (NSTEMI) myocardial infarction (principal); I42.9 Cardiomyopathy, unspecified; I50.20 Unspecified systolic (congestive) heart failure; I25.719 Atherosclerosis of autologous vein coronary artery bypass graft(s) with unspecified angina pectoris; Z95.1 Presence of aortocoronary bypass graft; I25.119 Atherosclerotic heart disease of native coronary artery with unspecified angina pectoris; Z95.5 Presence of coronary angioplasty implant and graft; I10 Essential (primary) hypertension; I25.5 Ischemic cardiomyopathy
CPT/HCPCS: C1725; C1760; C1769; C1876; C1894; G0378; J1644; J2405

== ENCOUNTER 2017-03-13 11:35 | Observation (INO) | payer MEDICARE, OTHER, MEDICAID ==
[~2017-03-13] VITALS: Ht 165.1 cm; Wt 69.0 kg
[~2017-03-13 11:35] MED LIST changes: +ALDACTONE 25MG25 MG PO; +ASPIRIN REGIMEN81 MG PO; +BRILINTA90 MG PO; +CARVEDILOL 1212.5 MG PO; +DIGOXIN0.125 MG PO
[2017-03-13 11:42] VITALS: BP 123/57
--- NOTE | 2017-03-13 12:17 | Emergency Room Report ---
History of Present Illness Time Seen by 1203 Presenting Problem in Triage Pt arrived:Wheelchair Presenting Problem:PT STATES SHE WAS ATTEMPTING TO GO TO BED LAST NIGHT WHEN SHE SAYS HER LEGS "GAVE OUT" AND SHE FELL DOWN THE GROUND ON HER BOTTOM; STATES THIS HAPPENS OFTEN (MANY TIMES IN THE PAST). DURING THIS EVENT SHE INJURED HER LEFT FOOT. NOTABLE BRUISING TO TOP AND SIDE OF FOOT. 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 N Clinical Suspician of Infection? N Mental Status: 1 - Regular (Normal Baseline) Sepsis Risk:Low Sepsis Risk Have you (or family members/close friends) recently traveled outside the [facility]? N If Yes, where/when: Have you had exposure to infectious disease within the past month? TB? Other? Specify: I READ AND I AGREE WITH THE ABOVE PRESENTATION. This is an 87 years old white female with frequent falls. She was recently releasaed from [facility] after 3 weeks rehabilitation. She claims to have fallen on her buttock yesterday. She complains of pain involving the LEFT foot radiating to the LEFT knee. Also she complains of neck pain. Source patient, RN notes reviewed, family Exam Limitations no limitations ALLERGIES Coded Allergies: No Known Allergies (03/13/17) Home Medications Active Scripts NITROGLYCERIN (Nitrostat) 0.4 MG SL [id number] PRN CHEST PAIN #30 TAB Prov: 12/23/16 Lisinopril 2.5 MG PO DAILY #30 TAB Ref 1 Prov: 12/23/16 Oxazepam 10 MG PO BID #60 CAPSULE Ref 1 Prov: 12/23/16 Carvedilol (Carvedilol 12.5MG) 12.5 MG PO BID #60 TAB Ref 11 Prov: 02/18/17 Aspirin (Aspirin EC 81MG) 81 MG PO DAILY #30 TABLET Ref 11 Prov: 02/18/17 DIGOXIN (Digox) 0.125 MG PO DAILY #30 TAB Ref 11 Prov: 02/18/17 Ticagrelor (Brilinta) 90 MG PO BID #60 TAB Ref 11 Prov: 02/18/17 Spironolactone (Aldactone) 25 MG PO DAILY #30 TAB Ref 11 Prov: 02/18/17 Reported Medications POTASSIUM CHL (Potassium Chloride) 40 MEQ PO BID CHOLECALCIFEROL (VITAMIN D3) (Vitamin D-3) 2,000 IU PO DAILY Gabapentin (Gabapentin 300MG) 600 MG PO QHS Gabapentin (Gabapentin 300MG) 300 MG PO DAILY ATORVASTATIN CALCIUM (ATORVASTATIN 20MG) 20 MG PO QHS Trazodone Hcl (Trazodone HCl) 150 MG PO QHS Levothyroxine Sodium 0.2 MG PO DAILY Furosemide (Furosemide 40MG) 40 MG PO DAILY History Medical History General CAD? Yes Angina: Yes [place]: Yes Hypertension? Yes Hyperlipidemia? Yes CHF? No DVT? No PE? No COPD? No Asthma? No Anemia? No GERD? No Gastric ulcers? No GI Bleed? No Hernia? No Thyroid Problems? No Hypothyroidism? No CVA? No Seizures? No Diabetes? No Renal Insuffiency? No End Stage Renal Disease? No UTI? No Stones? No BPH? No GB Disease: No Nephritic Syndrome? No Asplenia? No Hepatitis? No Sickle Cell Disease? No Arthritis? No Migraines? No Cataracts? No Glaucoma? No MRSA? No HIV? No TB? No Anxiety? No Depression? No Cancer? No More? Yes Additional hx: TREMORS, PARKISONS Immunization Hx Ped.Immunizations UTD Yes DT/Tetanus Unknown Flu 2014-FSN Pneumonia Received In Past Surgical Hx Previous Surgery?Y Coronary Artery Bypass TUBAL LIGATION HYSTERECTOMY CARDIAC STENTS Family History Family Hx Diabetes No CAD Yes Hypertension Yes Hyperlipidemia Yes Cancer Yes TB No Social History Smoking Hx Smoker: Never Smoker Tobacco: No Type N/A Are you/the child exposed to second-hand smoke: No Alcohol Alcohol: No Review of Systems All Other Systems Reviewed and Negative Constitutional see HPI, weakness (frequent falls) Eyes no symptoms reported ENT no symptoms reported. Respiratory no symptoms reported Cardiovascular no symptoms reported Gastrointestinal no symptoms reported Genitourinary no symptoms reported. Musculoskeletal see HPI, neck pain (LEFT foot pain) Psychiatric/Neurological no symptoms reported Physical Exam Vital Signs Vital Signs Date Time Temp Pulse Resp B/P Pulse O2 O2 Flow FiO2 Ox Delivery Rate 03/13 1438 72 16 147/80 100 03/13 1258 69 16 126/55 94 03/13 1142 98.3 98 18 123/57 98 - WBC >12,000 or <4,000 or 10% bands? 2 or more SIRS Criteria Met? B/P:123/ MAP:79 Creatinine >2.0? UA output<0.5ml/kg/hr for 2 hrs? Platelet count >100,000? Lactate >2.0mmol/1? INR >1.2 or PTT > than 60 sec? Evidence of Organ Dysfunction? Provider documented clinical suspician of infection? N Sepsis Criteria Count: 1 Sepsis Risk: Low Sepsis Risk General Appearance normal appearance, WD/WN Eye Exam - bilateral eye normal exam, bilateral eye PERRL, bilateral eye EOMI Ear, Nose, Throat hearing grossly normal, normal ENT inspection Neck normal inspection, area of maximum tenderness over C7 & T-1. Respiratory Status Yes: trachea midline, chest symmetrical, non tender chest. No: respiratory distress. Lung Sounds bilateral: normal breath sounds, lungs clear. 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 No Results/Orders Laboratory Tests 03/13/17 1234: Sodium 137, Potassium 4.9, Chloride 105, Carbon Dioxide 25, BUN 36 H, Creatinine 1.8 H, Estimated Creat Clear 28 L, Estimated GFR (MDRD) 27 L, Glucose 138 H, Calcium 8.6, Total Bilirubin 0.5, AST 6 L, ALT 8 L, Alkaline Phosphatase 98, Creatine Kinase 25 L, CK-MB (CK-2) Rel Index 3.2, CK and CKMB Interp 0.8, Troponin I 0.04, Total Protein 6.1 L, Albumin 3.0 L, Globulin 3.1, Albumin/Globulin Ratio 1.0 L, WBC 7.8, RBC 3.03 L, Hgb 8.6 L, Hct 27.9 L, MCV 92.0, RDW 14.2, Plt Count 214, MPV 9.1, Gran % 78.0, Gran # 6.1, Lymphocytes % 9.7 L, Monocytes % 8.3, Eosinophils % 3.7, Basophils % 0.3, Lymphocytes # 0.8 , Monocytes # 0.7, Eosinophils # 0.3, Basophils # 0.0, PUBS MCHC 30.5 L, MCH 28.1 Current Medication Orders Sig/Xu Start time Last Medication Dose Route Stop Time Status Admin Sodium Chloride 10 ML PRN PRN 03/13 1145 AC IV 03/14 1141 Orders Procedure Date/time Status DIET-NOTHING BY MOUTH 03/[address] SCAN REQ 03/13 1256 Active LOWER LEG-LT 03/13 1256 Active FOOT-LT-3 VIEWS 03/13 1153 Active ELECTROCARDIOGRAM REQUEST 03/13 1142 Active IV SALINE LOCK 03/13 1142 Active CBC WITH AUTO DIFF 03/13 1142 Complete CARDIAC ENZYMES 03/13 1142 Complete CHEM 12 PROFILE 03/13 1142 Complete 12 LEAD EKG-STEFANIE (INITIAL) 03/13 UNK Active CM/EKG CM/EKG EKG rate, NSR, rhythm, sinus 70/m walk inverted T-wave in the lateral leads which is unchanged in comparison to an ekg from February 23, 2017. Departure Departure Time of Disposition 1213 Disposition DC Home or Self Care(routine) Clinical Impression Primary Impression: Frequent falls Secondary Impressions: Anemia, Foot fracture, left, Renal insufficiency Condition STABLE Referrals Alban Wright MD Additional Instructions Admit to Dr Wright for IV rehydration an d podiatry consult. Discharge Counseling Counseled pt/family regarding diagnosis, home care, follow up needs ED Critical Care Critical Care No If Critical Care minutes are documented, the time involved in the performance of seperately reportable procedures was not counted toward critical care time documented. I directly delivered medical care to this critically ill and/or injured patient. Timely evaluation and treatment was necessary to address the significant organ system(s) dysfunction present in this patient. at 1451
[2017-03-13 12:47] LABS: LYMPH # 0.8 K/mm3 (0.7-4.5); LYMPH % 9.7 % (10-50.0)
[2017-03-13 13:05] LABS: HEMOGLOBIN 8.6 g/dL (12.2-16.2)
--- NOTE | 2017-03-13 14:04 | RADIOLOGY REPORT PS360 ---
CT CERVICAL SPINE W/O CONT COMPARISON: Plain films cervical spine 04/10/2008 HISTORY: Pain lower cervical spine TECHNIQUE: Multiple axial scans obtained of the cervical spine. Sagittal and coronal reformats were evaluated as well. FINDINGS: There is overall normal curvature and alignment. There is multilevel degenerative disc disease from C3-4 through C67 with disc space narrowing and mild posterior ossific spurring at these levels. T1-T4 included on images well and appear intact. There is generalized osteopenia. The spinal canal is normal size throughout. There is no abnormal disc protrusion. The prevertebral soft tissues are normal and the odontoid is normal. IMPRESSION: Moderate generalized osteopenia, multilevel degenerative disc disease, no acute fracture or subluxation seen.
--- NOTE | 2017-03-13 14:13 | RADIOLOGY REPORT PS360 ---
KNEE-3 VIEWS-RT COMPARISON: None HISTORY: Right knee pain TECHNIQUE: The request states right knee the films are marked left AP lateral and oblique films were obtained FINDINGS: The femoral condyles tibial plateau and head of the fibula appear intact. There Is mild diffuse soft tissue swelling medially. There is no fracture or loose body. Is mild narrowing of patellofemoral space but I see no definite effusion. IMPRESSION: Probable diffuse contusion medial knee, no fracture seen.
[2017-03-13 15:51] VITALS: BP 142/80
[2017-03-13 17:09] VITALS: BP 122/52
[2017-03-13 19:00] VITALS: BP 100/42
[2017-03-13 20:46] VITALS: BP 100/42
[2017-03-14 04:02] VITALS: BP 95/41
--- NOTE | 2017-03-14 07:18 | HISTORY AND PHYSICAL REPORT ---
Demographics: Admit date: 03/13/17 Chief complaint: Fall with pain and foot PRIMARY DIAGNOSIS: multiple left metatarsal fractures Allergies: Coded Allergies: No Known Allergies (03/13/17) History of present illness: History of present illness: 87-year-old female with coronary artery disease and ischemic cardiomyopathy presented to the emergency department after she fell trying to pull the covers off her bed. Patient lost her balance while doing this. She injured the Left foot. Workup in the emergency department revealed multiple left distal metatarsal fractures (metatarsal number 3, number 4, maybe number 5). Patient has been admitted for podiatry consultation. Additional findings in the emergency department were a rise in her creatinine compared to baseline from 1.1 -1.8. Patient's last hospitalization was one month ago when she had stenting of coronary artery performed. She does get out of [facility] proximately 10 days ago after rehab stay there. Past medical history: Family HX Diabetes No CAD Yes Hypertension Yes Hyperlipidemia Yes Cancer Yes TB No Immunization HX Ped.Immunizations UTD Yes DT/Tetanus Unknown Flu 2016/2017 Pneumonia Received In Past TB Test in last year No General CAD? Yes Angina: Yes [place]: Yes Hypertension? Yes Hyperlipidemia? Yes CHF? No DVT? No PE? No COPD? No Asthma? No Anemia? No GERD? No Gastric ulcers? No GI Bleed? No Hernia? No Thyroid Problems? No Hypothyroidism? No CVA? No Seizures? No Diabetes? No Renal Insuffiency? No UTI? No Stones? No BPH? No GB Disease: No Nephritic Syndrome? No Asplenia? No Hepatitis? No Sickle Cell Disease? No Arthritis? No Migraines? No Cataracts? No Glaucoma? No MRSA? No HIV? No TB? No Anxiety? No Depression? No Cancer? No More? Yes Additional hx: TREMORS, PARKISONS Past Surgical HX Previous Surgery?Y Coronary Artery Bypass TUBAL LIGATION HYSTERECTOMY CARDIAC STENTS Current home meds: Active Scripts NITROGLYCERIN (Nitrostat) 0.4 MG SL [id number] PRN CHEST PAIN #30 TAB Prov: 12/23/16 Lisinopril 2.5 MG PO DAILY #30 TAB Ref 1 Prov: 12/23/16 Oxazepam 10 MG PO BID #60 CAPSULE Ref 1 Prov: 12/23/16 Carvedilol (Carvedilol 12.5MG) 12.5 MG PO BID #60 TAB Ref 11 Prov: 02/18/17 Aspirin (Aspirin EC 81MG) 81 MG PO DAILY #30 TABLET Ref 11 Prov: 02/18/17 DIGOXIN (Digox) 0.125 MG PO DAILY #30 TAB Ref 11 Prov: 02/18/17 Ticagrelor (Brilinta) 90 MG PO BID #60 TAB Ref 11 Prov: 02/18/17 Spironolactone (Aldactone) 25 MG PO DAILY #30 TAB Ref 11 Prov: 02/18/17 Reported Medications POTASSIUM CHL (Potassium Chloride) 40 MEQ PO BID CHOLECALCIFEROL (VITAMIN D3) (Vitamin D-3) 2,000 IU PO DAILY Gabapentin (Gabapentin 300MG) 600 MG PO QHS Gabapentin (Gabapentin 300MG) 300 MG PO DAILY ATORVASTATIN CALCIUM (ATORVASTATIN 20MG) 20 MG PO QHS Trazodone Hcl (Trazodone HCl) 150 MG PO QHS Levothyroxine Sodium 0.2 MG PO DAILY Furosemide (Furosemide 40MG) 40 MG PO DAILY Social Hx: Smoking HX Tobacco No Type N/A Are you/the child exposed to second-hand smoke: No Alcohol Alcohol: No Hx of Drug Use Drug Use? No Patien't marital status is Patient's support system is good Review of systems: Constitutional no symptoms reported. Respiratory no symptoms reported. Cardiovascular no symptoms reported Gastrointestinal/Abdominal no symptoms reported Genitourinary no symptoms reported. Musculoskeletal see HPI. Neurological Yes: no symptoms reported. Exam: Lab data for last 24 hours: Laboratory Tests 03/13/17 1234: Sodium 137, Potassium 4.9, Chloride 105, Carbon Dioxide 25, BUN 36 H, Creatinine 1.8 H, Estimated Creat Clear 28 L, Estimated GFR (MDRD) 27 L, Glucose 138 H, Calcium 8.6, Total Bilirubin 0.5, AST 6 L, ALT 8 L, Alkaline Phosphatase 98, Creatine Kinase 25 L, CK-MB (CK-2) Rel Index 3.2, CK and CKMB Interp 0.8, Troponin I 0.04, Total Protein 6.1 L, Albumin 3.0 L, Globulin 3.1, Albumin/Globulin Ratio 1.0 L, WBC 7.8, RBC 3.03 L, Hgb 8.6 L, Hct 27.9 L, MCV 92.0, RDW 14.2, Plt Count 214, MPV 9.1, Gran % 78.0, Gran # 6.1, Lymphocytes % 9.7 L, Monocytes % 8.3, Eosinophils % 3.7, Basophils % 0.3, Lymphocytes # 0.8 , Monocytes # 0.7, Eosinophils # 0.3, Basophils # 0.0, PUBS MCHC 30.5 L, MCH 28.1 Admission vital signs: 1ST Vital Signs Result Date Time Pulse Ox 98 03/13 1142 B/P 123/57 03/13 1142 Temp 98.3 03/13 114 Pulse 98 03/13 1142 Resp 18 03/13 1142 O2 Delivery ROOM AIR 03/13 1551 Vital Signs Date Time Temp Pulse Resp B/P Pulse O2 O2 Flow FiO2 Ox Delivery Rate 03/14 0402 98.6 66 19 95/41 96 ROOM AIR Exam General appearance: alert, active, awake, no acute distress Cardiovascular: regular rate & rhythm Respiratory: clear to auscultation Extremities: left foot is warm. Exam was limited and does not cause pain Plan: Problem List 1. Foot fracture, left 2. Systolic CHF with reduced left ventricular function, NYHA class 3 3. Ischemic cardiomyopathy 4. Hypertension 5. Kidney disease, chronic, stage IV (GFR 15-29 ml/min) 6. Anemia of chronic disease Plan: 1. Podiatry consultation today 2. Care management consult to go on and investigate placement options for the patient in case that is needed
[2017-03-14 07:27] VITALS: BP 83/33
[2017-03-14 07:27] LABS: HEMOGLOBIN 8.6 g/dL (12.2-16.2); LYMPH # 1.1 K/mm3 (0.7-4.5); LYMPH % 17.5 % (10-50.0)
--- NOTE | 2017-03-14 08:32 | PHARMACY CLINIC NOTE ---
Patient Demographics Patient Demographics Admission date: 03/13/17 Date: 03/14/17 Time: 0832 Allergies Coded Allergies: No Known Allergies (03/13/17) HEIGHT- FT: 5 IN: 5.00 K.493 VTE General Information Labs: Laboratory Tests 03/14 03/13 0654 1234 Hematology Hgb (12.2 - 16.2 g/dL) 8.6 L 8.6 L Hct (37.0 - 47.0 %) 28.1 L 27.9 L Plt Count (142 - 424 K/mm3) 223 214 Disclaimer The following section includes nursing documentation that has been pulled in for pharmacy review. Patient's VTE score: 2 Patient's VTE Risk: VERY LOW RISK Clinical trial participant? No VTE prophylaxis [id number] VTE prophylaxis ordered? Yes Type of prophylaxis/treatment: NIRAV at 0832
--- NOTE | 2017-03-14 08:33 | CONSULT NOTE-PODIATRY ---
Podiatry consult Date of admission: 03/13/17 Chief complaint: Left foot pain History: History of Present Illness: Ms. meng is a pleasant 87-year-old female who presented to the emergency department yesterday, 03/13/17. She states that she was trying to make her bed, lost her balance and she fell. She states that she hurt the left foot and knee. X-rays in the emergency room were taken of the left foot and showed distal metatarsal neck fractures of 3, 4 and 5, mildly laterally displaced. The patient's creatinine was also elevated in the ED from a baseline of 1.1-1.8. She does have a history of coronary artery disease. Her last hospitalization was a month ago with stenting of the coronary artery. Patient has a history of metatarsal fractures. Similar thing happen several years ago where she lost her balance and fell and broke to metatarsals of the right foot. She did not have surgery. She was weightbearing in a boot and healed with no subsequent issues. Patient states she [place] [facility] [place] She currently lives at home. Her grandson helps her with cooking, cleaning and daily tasks. Past Medical History: Medical History: CAD? Yes Angina: Yes OR: Yes Hypertension? Yes Hyperlipidemia? Yes CHF? No DVT? No PE? No COPD? No Asthma? No Anemia? No GERD? No Gastric ulcers? No GI Bleed? No Hernia? No Thyroid Problems? No Hypothyroidism? No CVA? No Seizures? No Diabetes? No Renal Insuffiency? No UTI? No Stones? No BPH? No GB Disease: No Nephritic Syndrome? No Asplenia? No Hepatitis? No Sickle Cell Disease? No Arthritis? No Migraines? No Cataracts? No Glaucoma? No MRSA? No HIV? No TB? No Anxiety? No Depression? No Cancer? No More? Yes Additional hx: TREMORS, PARKISONS Surgical history: Previous Surgery?Y Coronary Artery Bypass TUBAL LIGATION HYSTERECTOMY CARDIAC STENTS Medications: Active Scripts NITROGLYCERIN (Nitrostat) 0.4 MG SL [id number] PRN CHEST PAIN #30 TAB Prov: 12/23/16 Lisinopril 2.5 MG PO DAILY #30 TAB Ref 1 Prov: 12/23/16 Oxazepam 10 MG PO BID #60 CAPSULE Ref 1 Prov: 12/23/16 Carvedilol (Carvedilol 12.5MG) 12.5 MG PO BID #60 TAB Ref 11 Prov: 02/18/17 Aspirin (Aspirin EC 81MG) 81 MG PO DAILY #30 TABLET Ref 11 Prov: 02/18/17 DIGOXIN (Digox) 0.125 MG PO DAILY #30 TAB Ref 11 Prov: 02/18/17 Ticagrelor (Brilinta) 90 MG PO BID #60 TAB Ref 11 Prov: 02/18/17 Spironolactone (Aldactone) 25 MG PO DAILY #30 TAB Ref 11 Prov: 02/18/17 Reported Medications POTASSIUM CHL (Potassium Chloride) 40 MEQ PO BID CHOLECALCIFEROL (VITAMIN D3) (Vitamin D-3) 2,000 IU PO DAILY Gabapentin (Gabapentin 300MG) 600 MG PO QHS Gabapentin (Gabapentin 300MG) 300 MG PO DAILY ATORVASTATIN CALCIUM (ATORVASTATIN 20MG) 20 MG PO QHS Trazodone Hcl (Trazodone HCl) 150 MG PO QHS Levothyroxine Sodium 0.2 MG PO DAILY Furosemide (Furosemide 40MG) 40 MG PO DAILY Allergies: Coded Allergies: No Known Allergies (03/13/17) Family History: Family history: Postive for: CAD. Social History: Smoking Hx Tobacco: No Smoker: Never Smoker Type: N/A Packs/day: N/A Are you exposed to second hand No Alcohol: Alcohol: No Hx of Drug Use: Drug Use? No Review of Systems: Patient unresponsive? No Constitutional Positive for: weak. No: chills. Cardiovascular No: chest pain. Respiratory No: shortness of air. Musculoskeletal Positive for: extremity pain (left knee, foot). Heme Positive for: bruising. Psychiatric No: anxious. Physical Exam: Vital signs: Vital Signs Result Date Time Pulse Ox 97 03/14 727 B/P 83/33 03/14 727 O2 Delivery ROOM AIR 03/14 727 Temp 98.3 03/14 727 Pulse 67 03/14 727 Resp 18 03/14 727 Exam: General appearance: active, awake, no acute distress, well-developed Extremities: full range of motion, normal capillary refill, warm, no calf tenderness, edema (left foot) Musculoskeletal: motor intact, sensation intact Skin: warm Neuro: normal exam Lab data: Labs: Laboratory Tests 03/14/17 0654: Sodium 141, Potassium 5.0, Chloride 107, Carbon Dioxide 28, BUN 30 H, Creatinine 1.4 H, Estimated Creat Clear 31 L, Estimated GFR (MDRD) 36 L, Glucose 91, Calcium 8.7, Ferritin 39, WBC 6.3, RBC 3.04 L, Hgb 8.6 L, Hct 28.1 L, MCV 92.4, RDW 14.4, Plt Count 223, MPV 8.5, Gran % 66.2, Gran # 4.2, Lymphocytes % 17.5, Monocytes % 9.2, Eosinophils % 6.6, Basophils % 0.6, Lymphocytes # 1.1, Monocytes # 0.6, Eosinophils # 0.4, Basophils # 0.0, PUBS MCHC 30.6 L, Retic Count 3.0, MCH 28.3 03/13/17 1234: Sodium 137, Potassium 4.9, Chloride 105, Carbon Dioxide 25, BUN 36 H, Creatinine 1.8 H, Estimated Creat Clear 28 L, Estimated GFR (MDRD) 27 L, Glucose 138 H, Calcium 8.6, Total Bilirubin 0.5, AST 6 L, ALT 8 L, Alkaline Phosphatase 98, Creatine Kinase 25 L, CK-MB (CK-2) Rel Index 3.2, CK and CKMB Interp 0.8, Troponin I 0.04, Total Protein 6.1 L, Albumin 3.0 L, Globulin 3.1, Albumin/Globulin Ratio 1.0 L, WBC 7.8, RBC 3.03 L, Hgb 8.6 L, Hct 27.9 L, MCV 92.0, RDW 14.2, Plt Count 214, MPV 9.1, Gran % 78.0, Gran # 6.1, Lymphocytes % 9.7 L, Monocytes % 8.3, Eosinophils % 3.7, Basophils % 0.3, Lymphocytes # 0.8 , Monocytes # 0.7, Eosinophils # 0.3, Basophils # 0.0, PUBS MCHC 30.5 L, MCH 28.1 Radiology results: Radiology results: 03/14/17: Left foot x-ray, 3 views Mildly displaced left third and fourth metatarsal neck fractures. Nondisplaced fifth metatarsal neck fracture. Diagnosis(es): 1. Foot fracture, left 2. Systolic CHF with reduced left ventricular function, NYHA class 3 3. Ischemic cardiomyopathy 4. Hypertension 5. Kidney disease, chronic, stage IV (GFR 15-29 ml/min) 6. Anemia of chronic disease Additional information: WAQAR: Vascular: DP/PT pedal pulses 1+ palpable, positive pedal hair growth, CFT wnl, skin temp warm Dermatologic: Left anterior distal david abrasion noted with no signs of infection, toenails wnl, no inter-digital macerations, bruising and was discolorations noted to bilateral upper and lower extremities Neurologic: light touch protective sensation intact, no focal deficits, normal muscle mass Musculoskeletal: muscle strength wnl b/l, decreased arch height b/l, no pain noted with active or passive ROM of the ankle, STJ or midtarsal joints, gastroc- soleus equinus b/l, forefoot abduction, heel valgus No pain with palpation of the proximal fibula, distal fibula, medial lateral ankle. No pain to palpation of the fifth metatarsal base. There is pain with palpation of the third fourth and fifth metatarsal head and necks. Mild nonpitting edema noted to the left forefoot. Plan: LEFT METATARSAL NECK FRACTURES 3-5: Discussed with the patient the treatment options. We discussed given her comorbidities and history of metatarsal fractures, surgery is not recommended. My concern would be that the risks outweigh the benefits. Mobility is a big concern, surgery would require her to be nonweightbearing. I would prefer that she be weightbearing in a fracture boot with a walker. We discussed conservative care. Patient prefers this option and is in agreement with the treatment plan. Recommended treatment: 1. Ice to the top of the left foot and knee 2. Soft Dooley compression dressing applied to the left foot 3. Short fracture boot to the left foot 4. Patient can weight-bear to the left heel/foot in the fracture boot with walker 5. Follow up with me out pt in Specialty clinic in 3-4 weeks for re-xray at 0840
[2017-03-14 11:00] VITALS: BP 100/62
[2017-03-14 15:48] VITALS: BP 88/37
[2017-03-14 20:00] VITALS: BP 105/48
[2017-03-14 21:49] VITALS: BP 105/48
[2017-03-15 04:12] VITALS: BP 92/42
--- NOTE | 2017-03-15 07:04 | Discharge Summary ---
See Addendum Demographics Admit date: 03/13/17 Discharge date: 03/14/17 Discharge diagnoses Problem List 1. Foot fracture, left 2. Systolic CHF with reduced left ventricular function, NYHA class 3 3. Ischemic cardiomyopathy 4. Hypertension 5. Kidney disease, chronic, stage IV (GFR 15-29 ml/min) 6. Anemia of chronic disease History of present illness History of present illness 87-year-old female with coronary artery disease and ischemic cardiomyopathy presented to the emergency department after she fell trying to pull the covers off her bed. Patient lost her balance while doing this. She injured the Left foot. Workup in the emergency department revealed multiple left distal metatarsal fractures (metatarsal number 3, number 4, maybe number 5). Patient has been admitted for podiatry consultation. Additional findings in the emergency department were a rise in her creatinine compared to baseline from 1.1 -1.8. Patient's last hospitalization was one month ago when she had stenting of coronary artery performed. She was discharged from [facility] approximately 10 days ago after rehab stay there. Patient was admitted for podiatry consultation. She was evaluated by Dr. Morgan. She was felt to be a poor surgical candidate and best course of treatment was use of a walking boot along with assistance of a walker. Patient and her family desired the patient to return home. An additional day was required to get things ready at home. Patient was able to ambulate here in the hospital. Patient was discharged home on the morning of the March 15. She will follow-up with Dr. Morgan in 3 weeks. Medications Medications: Discharge meds are as noted. Follow up Follow up in office in: 3 WEEKS with: GUILLERMINA KWAN DPM at [phone]
[2017-03-15] MEDS ORDERED: NEURONTIN 300M300 MG PO (07:05)
[2017-03-15 07:15] VITALS: BP 90/42
[2017-03-15 09:38] VITALS: BP 90/42
--- NOTE | 2017-03-16 07:34 | RADIOLOGY REPORT PS360 ---
LOWER LEG-LT COMPARISON: None HISTORY: Left lower leg pain after a fall TECHNIQUE: AP and lateral views FINDINGS: The tibia and fibula appear intact with no evidence of recent or old fracture. Soft tissues are normal. There are surgical clips along the medial aspect of the leg probably from previous vascular procedure. IMPRESSION: Negative left tibia and fibula
--- NOTE | 2017-03-16 07:34 | RADIOLOGY REPORT PS360 ---
FOOT-LT-3 VIEWS COMPARISON: Right foot 02/06/2014 HISTORY: Left foot pain after a fall TECHNIQUE: AP lateral and oblique views FINDINGS: There is generalized osteopenia. There are fractures of the heads of the second through fifth metacarpals. The second and fifth fractures are not significantly displaced, there is mild lateral displacement of the heads of the third and fourth middle tarsals. The tarsal bones appear intact. All phalanges are intact. There is generalized osteopenia. Is mild diffuse soft tissue swelling of the forefoot. IMPRESSION: Multiple fractures of the heads of the second through fifth metatarsals.
--- OUTSIDE RECORDS SUMMARY | 2017-03-18 19:12 | External Medical Summary Rpt | CCD ---
Author Author , VIRGINIA Organization [facility] Address Unknown Phone .[facility] Care Team Providers Care Unix Consultant Name Role Phone A Adonis SIMMONS MD PSC, Yakov Unavailable Unavailable Adonis SIMMONS MD PSC JUAREZ, JUAREZ Unavailable Unavailable [facility] Unavailable Unavailable SERVICE, [facility] Unavailable Unavailable SERVICE, [facility] Unavailable Unavailable [place], [facility] Unavailable Unavailable [employer] [employer] JR ROWE FULLER, Unavailable Unavailable ELSA OCHOA Unavailable Unavailable ELSA CABAN Unavailable Unavailable [facility], Unavailable Unavailable [facility] Unavailable Unavailable INC, [facility] Unavailable Unavailable HOSPITAL P, [facility], Unavailable Unavailable [facility] MONICA ANDERSON Unavailable Unavailable [facility] Unavailable Unavailable [facility], [facility] KILPELA, KILPELA Unavailable Unavailable [facility] Unavailable Unavailable [facility], [facility] Unavailable Unavailable [facility], [facility] STEFANIE WATTS JR, JR Unavailable Unavailable [facility], [facility], Unavailable Unavailable PLL[facility], [facility] Unavailable Unavailable INCORPORAT, [facility] Unavailable Unavailable INCORPORAT, [facility] NATHAN, NATHAN Unavailable Unavailable LEVINE RILEY, LEVINE RILEY Unavailable Unavailable [facility] Unavailable Unavailable EQUIPME, [facility] Unavailable Unavailable EQU[facility], [facility] SOTINGEANU, Unavailable Unavailable SOT[facility]EAN[facility] Purpose Continuity of Care Document - 05-13-2015 through 2016 Problems Code Diagnosis DOS Provider Status I10 ESSENTIAL 02-17-2017 [facility] PRIMARY PHYSICIANS HYPERTENSIO GROUP N I214 NON-ST 02-17-2017 [facility] ELEVATION PHYSICIANS MYOCARDIAL GROUP INFARCTION I255 ISCHEMIC 02-17-2017 [facility] CARDIOMYOPA PHYSICIANS THY GROUP I5020 UNSPECIFIED 02-17-2017 [facility] SYSTOLIC PHYSICIANS CONGESTIVE GROUP HEART FAILURE E785 HYPERLIPIDE 02-15-2017 [facility] MACIEL PHYSICIANS UNSPECIFIED GROUP L33218 ASHD EWIIAAPAAYP 02-15-2017 [facility] COR ART PHYSICIANS W/UNSTABLE GROUP ANGINA PECTORIS I6529 OCCLUSION & 02-15-2017 [facility] STENOSIS PHYSICIANS UNSPECIFIED GROUP CAROTID ARTERY N183 CHRONIC 02-15-2017 [facility] KIDNEY PHYSICIANS DISEASE GROUP STAGE 3 MODERATE 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 R410 DISORIENTAT 02-14-2017 [facility] ION [facility]YSICIANS, UNSPECIFIED PLLC R7989 OTHER SPEC 02-14-2017 [facility] ABNORMAL [facility]YSICIANS, FINDINGS PLLC BLOOD CHEMISTRY [id number] LACERATION 02-04-2017 A Adonis SIMMONS W/O FOREIGN CUMMINGS PSC BODY LT LOW LEG SBSQT ENC [id number] UNS INJURY 02-04-2017 [facility] RT LOWER [facility] LEG INC SUBSEQUENT ENCOUNTER Y38CVIM FALL FROM 02-04-2017 A Adonis VELASQUEZ MD PSC SUBSEQUENT ENCOUNTER Z23 ENCOUNTER 02-04-2017 A Adonis CONWAY MD PSC IMMUNIZATIO N D649 ANEMIA 01-23-2017 [facility] UNSPECIFIED PHYSICIANS, PLLC [id number] LACERATION 01-23-2017 [facility] W/O FOREIGN PHYSICIANS, BODY LT PLLC LOW LEG INIT ENC J60938 OTHER LONG 01-23-2017 [facility] TERM [facility] CURRENT INC DRUG THERAPY E538 DEFICIENCY 01-20-2017 A Adonis SIMMONS OF J[place] CUM[facility]INGS PSC SPECIFIED B GROUP VITAMINS M1990 UNSPECIFIED 01-20-2017 A Adonis SIMMONS MD PSC OSTEOARTHRI TIS UNSPECIFIED SITE [id number] OTHER SPEC 01-19-2017 [facility] INJURIES LT AMBULANCE LOWER LEG SERVICE INITIAL ENC E871 HYPO-OSMOLA 01-04-2017 [facility]- HYPONATREMI A E876 HYPOKALEMIA 01-04-2017 [facility]- M6281 MUSCLE 01-04-2017 [facility] WEAKNESS INC- GENERALIZED R251 TREMOR 01-04-2017 [facility] UNSPECIFIED INC- R2681 UNSTEADINES 01-04-2017 [facility] MANOR S ON FEET INC- R269 UNSPECIFIED 01-04-2017 [facility]- ABNORMALITI ES OF GAIT AND MOBILITY G20 PARKINSONS 12-23-2016 [facility] DISEASE [facility] SERVICE T88834 ASHD EWIIAAPAAYP 12-21-2016 [facility] SOTELO [facility] W/UNS HOSPITAL P ANGINA PECTORIS W23237 ATHEROSCLER 12-21-2016 [facility] P ARTERY CABG W/UNS AP R079 CHEST PAIN 12-21-2016 [facility] R531 WEAKNESS 12-21-2016 [facility] P R5383 OTHER 12-21-2016 [facility] E039 HYPOTHYROID 12-08-2016 [facility] UNSPECIFIED HOLDINGS E782 MIXED 11-17-2016 [facility] HYPERLIPIDE [facility] MACIEL HOLDINGS Z9181 HISTORY OF 08-18-2016 [facility] M542 CERVICALGIA 11-26-2015 [facility]INGS M549 DORSALGIA 11-26-2015 [facility] UNSPECIFIED [facility] HOLDINGS I2510 ASHD EWIIAAPAAYP 10-15-2015 [facility] CORONARY MEDICAL ARTERY W/O IMAGING ASS ANGINA PECTORIS R0989 OTH SPEC SX 10-15-2015 [facility] THE [facility]ING ASS CIRC & RESP SYS E611 IRON 10-07-2015 [facility] M545 LOW BACK 10-07-2015 Yakov SIMMONS PAIN [facility] N59902 PAIN IN 08-06-2015 [facility] RIGHT HIP [facility] R296 REPEATED 06-06-2015 [employer] [place] INC- G250 ESSENTIAL 05-13-2015 [facility] D64.9 ANEMIA, UNSPECIFIED G20 PARKINSON'S DISEASE YIG8196 M19.90 UNSPECIFIED OSTEOARTHRI TIS, UNSPECIFIED SITE 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 D 66 SS ti ME 63 0- 8- 00 CA 58 ON ve N 79 20 20 0 RE 02 D3 [address] 1 PH EP 2, AR HE 00 MA N 0 CY A UN IT LL C SO FT GE L 00 07 07 0 18 18 ME 14 BE Ac TA 90 -2 -2 0. D 67 SS ti ME 44 7- 7- 00 CA 72 ON ve N 21 20 20 0 RE 90 B- [address] 12 3 PH EP AR HE 1, MA N 00 CY A 0 MC LL G C TA BL ET 00 07 07 0 10 10 ME 14 BE Ac TA 53 -2 -2 0. D 63 SS ti ME 63 0- 0- 00 CA 48 ON ve N 79 20 20 0 RE 12 D3 [address] 1 PH EP 2, AR HE 00 MA N 0 CY A UN IT LL C SO FT GE L 00 12 01 0 60 6 ME 12 BE Ac TA 53 -2 -2 .0 D 05 SS ti ME 63 9- 5- 00 CA 55 ON ve N 79 20 20 RE 49 D3 [address] 1 PH EP 2, AR HE 00 MA N 0 CY A UN IT LL C SO FT GE L AC 00 01 01 0 35 3 ME 12 BE Ac ID 90 -1 -1 50 D 00 SS ti 47 0- 1- .0 CA 90 ON ve GO 72 20 20 00 RE 23 NE [address] 4 PH EP AN AR HE TA MA N CI CY A D LI LL QU C ID BA 11 12 01 0 14 5 ME 12 BE Ac ZA 70 -2 -0 20 D 00 SS ti 10 9- 8- .0 CA 14 ON ve MI 04 20 20 00 RE 37 OT [address] EC 4 PH EP T AR HE CR MA N EA CY A M LL C BA 11 12 12 0 14 15 ME 11 BE Ac ZA 70 -2 -2 20 D 97 SS ti 10 9- 9- .0 CA 38 ON ve MI 04 20 20 00 RE 56 OT [address] EC 4 PH EP T AR HE CR MA N EA CY A M LL C SE 00 12 12 0 40 2 ME 11 BE Ac NN 90 -2 -2 .0 D 97 SS ti A 45 9- 9- 00 CA 38 ON ve 8. 16 20 20 RE 52 [address] MG 1 PH EP AR HE TA MA N BL CY A ET LL C 00 12 12 0 30 30 ME 11 BE Ac TA 53 -2 -2 0. D 97 SS ti ME 63 9- 9- 00 CA 38 ON ve N 79 20 20 0 RE 55 D3 [address] 1 PH EP 2, AR HE 00 MA N 0 CY A UN IT LL C SO FT GE L Immunization Name Date Rout CVX Reac Dose Comm Prov Is Faci e tion ent ider Refu lity Give sed n IIV 09-0 135 CHATO No A C VACC 1-20 NER WRIG INE 17 HT PRES MD ERV PSC FREE INCR EASE D AG CONT ENT IM TDAP 01-04 115 LYN No LYN 6-20 ROGELIO ROGELIO VACC 17 MEM MEM INE 7 HOSP HOSP YRS/ INC INC > IM Results Labs Lab Lab Date Result Refere Interp Status Commen Order Detail nces retati t Range on Urinalysis dipstick W Reflex Microscopic panel in Urine (02-14-2017 17:00) Bacteri 2+ O complet a 017 ed [Presen 17:00 ce] in Urine sedimen t by Light microsc opy Hyaline 10-20 NONE complet casts 017 ed [Presen 17:00 ce] in Urine sedimen t by Light microsc opy Erythro OCC 0 complet cytes 017 ed [Presen 17:00 ce] in Urine sedimen t by Light microsc opy Epithel 20-50 0#/hp complet ial 017 f - ed cells.s 17:00 5#/hp quamous f [Presen ce] in Urine sedimen t by Microsc opy high power field Urinalysis dipstick W Reflex Microscopic panel in Urine (02-14-2017 17:00) Appeara CLEAR CLEAR complet nce of 017 ed Urine 17:00 Bilirub NEGATIV NEG complet in 017 E ed [Presen 17:00 ce] in Urine by Test strip Erythro NEGATIV NEG complet cytes 017 E ed [Presen 17:00 ce] in Urine Color YELLOW YELLOW complet of 017 ed Urine 17:00 Ketones NEGATIV NEG complet 017 E ed [Presen 17:00 ce] in Urine by Automat ed test strip Mucus NEGATIV NEG complet [Presen 017 E ed ce] in 17:00 Urine sedimen t by Light microsc opy Nitrite NEGATIV NEG complet 017 E ed [Presen 17:00 ce] in Urine by Test strip Urobili 0.2 NEG complet nogen 017 ed [Presen 17:00 ce] in Urine by Test strip Urinalysis dipstick W Reflex Microscopic panel in Urine (12-20-2016 11:20) Bacteri 1+ O complet a 017 ed [Presen 11:20 ce] in Urine sedimen t by Light microsc opy Epithel 20-50 0#/hp complet ial 017 f - ed cells.s 11:20 5#/hp quamous f [Presen ce] in Urine sedimen t by Microsc opy high power field Urinalysis dipstick W Reflex Microscopic panel in Urine (12-20-2016 11:20) Appeara Sl CLEAR complet nce of 017 Cloudy ed Urine 11:20 Bilirub NEGATIV NEG complet in 017 E ed [Presen 11:20 ce] in Urine by Test strip Erythro TRACE-L NEG complet cytes 017 YSED ed [Presen 11:20 ce] in Urine Color YELLOW YELLOW complet of 017 ed Urine 11:20 Ketones NEGATIV NEG complet 017 E ed [Presen 11:20 ce] in Urine by Automat ed test strip Mucus NEGATIV NEG complet [Presen 017 E ed ce] in 11:20 Urine sedimen t by Light microsc opy Nitrite NEGATIV NEG complet 017 E ed [Presen 11:20 ce] in Urine by Test strip Urobili 1.0 NEG complet nogen 017 ed [Presen 11:20 ce] in Urine by Test strip Procedures Procedure DOS Code Location Performer Comment SBSQ [address] [place] [address] PHYSICIAN CARE/DAY S GROUP 15 MINUTES SBSQ 97835 [place] [address] PHYSICIAN CARE/DAY S GROUP 15 MINUTES INITIAL 35928 [place] [address] PHYSICIAN CARE/DAY S GROUP 70 [place]ES PRQ [address]152 [facility] NATHAN TRLUML 7 PHYSICIAN CORONARY S GROUP STENT W/ANGIO ONE ART/BRNCH CATH PLMT 02458 [facility] NATHAN L 7 PHYSICIAN HRT/ARTS/ S GROUP [facility] WNJX & ANGIO IMG S&I ECG 25995 [facility] MONICA ROUTINE 7 PHYSICIAN ECG S, PLLC W/LEAST 12 LDS I&R ONLY RADIOLOGI 45874 [facility] VEGA C 7 MEM H[facility]P [facility] EXAMINATI INC INC ON TIBIA & FIBULA 2 VIEWS IIV 09845 A C HUNTER VACCINE 7 [place] PRESERV PSC FREE INCREASED AG CONTENT IM ADMINISTR G0008 A Adonis HUNTER ATION OF 7 [place] INFLUENZA PSC VIRUS VACCINE DRESSING 26854 A Adonis HUNTER CHANGE 7 [place] UNDER PSC ANESTHESI A CUL BACT 61712 [facility] VEGA AEROBIC 7 [facility] H[facility] ADDL INC INC METHS DEFINITIV E EA ISOL CUL BACT 26169 GARY VEGA XCPT 7 [facility] URINE INC INC BLOOD/STO OL AEROBIC ISOL COLLECTIO 72726 G[facility] VEGA N VENOUS 7 [facility] BLOOD INC INC VENIPUNCT URE SUSCEPTIB 08410 [facility] VEGA LTY STDY 7 [facility] ANTIMICRB INC INC IAL MICRO/AGA R DILUTJ BLOOD 37464 [facility] VEGA COUNT 7 [facility] H[facility] COMPLETE INC INC AUTO&AUTO DIFRNTL WBC BLOOD 08686 A Adonis HUNTER COUNT 7 [place] COMPLETE PSC AUTO&AUTO DIFRNTL WBC COLLECTIO 87413 A Adonis HUNTER N VENOUS 7 [place] BLOOD PSC VENIPUNCT URE INJECTION J3301 A Adonis HUNTER 7 [place] TRIAMCINO PSC LONE ACETONIDE NOS 10 MG INJECTION J1030 A Adonis SIMMONS MD METHYLPRE PSC DNISOLONE ACETATE 40 MG INJECTION J3420 A Adonis HUNTER VIT B-12 7 [place] PSC CYANOCOBA ALETA TO 1000 MCG THERAPEUT 57214 A Adonis HUNTER IC 7 [place] PROPHYLAC PSC TIC/DX INJECTION SUBQ/IM AMB A0427 [facility] 7 AMBULANCE AMBULANCE ALS SERVICE SERVICE EMERGENCY TRANSPORT LEVEL 1 SMPL RPR 92505 AISHA ANDRE SCALP/NEC 7 PHYSICIAN U K/AX/GWENDOLYN S, PLLC T/TRUNK 12.6-20.0 CM IM ADM 67988 [facility] VEGA PRQ ID 7 [facility] SUBQ/IM INC INC NJXS 1 VACCINE TDAP 44548 G[facility] VEGA VACCINE 7 7 MEM HOSP [facility] YRS/> IM INC INC GROUND A0425 [facility] 7 AMBULANCE AMBULANCE PER SERVICE SERVICE STATUTE MILE O2 CONC 1 E1390 DEANGELO DEANGELO DEL [place] 7 MANOR MANOR 85%/>02 INC- INC- CONC AT [facility] FLW RATE BASIC 23950 COMBINED COMBINED METABOLIC 7 PHYSICIAN PHYSICIAN PANEL S LA S LA CALCIUM TOTAL TRAVEL [address] MED 7 PHYSICIAN PHYSICIAN NEC LAB S LA S LA SPEC; PRORAT ACTL MILE CYANOCOBA 15015 COMBINED COMBINED ALETA 7 PHYSICIAN PHYSICIAN VITAMIN S LA S LA B-12 BLOOD 76498 COMBINED COMBINED COUNT 7 PHYSICIAN PHYSICIAN COMPLETE S LA S LA AUTO&AUTO DIFRNTL WBC COLLECTIO 26013 COMBINED COMBINED N VENOUS 7 PHYSICIAN PHYSICIAN BLOOD S LA S LA VENIPUNCT URE O2 CONC 1 E1390 DEANGELO DEANGELO [place] 7 MANOR MANOR 85%/>02 INC- INC- CONC AT [facility] FLW RATE AMBULANCE A0428 [facility] SERVICE 7 AMBULANCE AMBULANCE BLS SERVICE SERVICE NONEMERGE NCY TRANSPORT SBSQ 43778 [facility] 7 PHYSICIAN CARE/DAY S GROUP 15 MINUTES GROUND A0425 [facility] AM[facility]UL[facility] PER SERVICE SERVICE STATUTE MILE GROUND A0425 [facility] 7 AMBULANCE AMBULANCE PER SERVICE SERVICE STATUTE MILE RADIOLOGI 38908 [facility] 7 MEDICAL EXAMINATI IMAGING [place] [address] [facility] HEAD/BRAI 7 MEDICAL N W/O IMAGING CONTRAST ASS MATERIAL AMB A0427 [facility] SERVICE 7 AMBULANCE AMBULANCE ALS SERVICE SERVICE EMERGENCY TRANSPORT LEVEL 1 ECG 51447 GARY STEFANIE JR ROUTINE 7 [facility] W/LEAST P 12 LDS I&R ONLY URNLS DIP 90662 GARY VEGA 7 MEM HOSP [facility] HOSP STICK/TAB INC INC LET REAGENT AUTO MICROSCOP Y BLOOD 43670 GARY VEGA COUNT 7 MEM HOSP MEM HOSP COMPLETE INC INC AUTO&AUTO DIFRNTL WBC COMPREHEN 23380 [facility] VEGA SIVE 7 MEM HOSP [facility]OS[facility] METABOLIC INC INC PANEL COLLECTIO 60735 GARY VEGA N VENOUS 7 MEM [facility] HOSP [place] [address] [facility] THYROID 7 CHIDI CHIDI STIMULATI HOLDINGS [place] [address] LAB [facility] FREE 7 [facility] [place] [address] LAB [facility] THYROID 7 [facility]IDI CHIDI STIMULATI HOLDINGS HOLDINGS NG HORMONE TSH BASIC 91435 LAB [facility] METABOLIC 7 [facility] PANEL HOLDINGS HOLDINGS CALCIUM TOTAL CYANOCOBA 03787 LAB [facility] LAB WILLY ALETA 7 [facility] VITAMIN HOLDINGS HOLDINGS B-12 SEAT E0156 [facility] HARRISON ATTACHMEN 7 HOME HOME T [facility] MEDICAL MEDICAL EQUIPME EQUIPME WALKER E0143 [facility] ROTHMANRELL FOLDING 7 HOME HOME WHEELED MEDICAL MEDICAL ADJUSTABL EQUIPME EQUIPME E/[place] [address] LAB WILL[facility] LAB WILLY FREE 7 [facility] [place] [address] LAB WILL[facility] LAB [facility] THYROID 7 CHIDI CHIDI STIMULATI HOLDINGS HOLDINGS NG HORMONE TSH BASIC 90053 LAB [facility] METABOLIC 7 CHIDI CHIDI PANEL HOLDINGS HOLDINGS CALCIUM TOTAL BASIC 65996 [facility] WILLY METABOLIC 6 CHIDI CHIDI PANEL [place] [address] LAB [facility] THYROID 6 [facility] STIMULATI HOLDINGS [place] [address] LAB [facility] LAB WILLY FREE 6 CHIDI CHIDI [place] [address] LAB WILLY LAB WILL[facility] THYROID 6 CHIDI CHIDI STIMULATI HOLDINGS HOLDINGS NG HORMONE TSH BASIC 15018 [facility] WILLY METABOLIC 6 CHIDI CHIDI PANEL HOLDINGS HOLDINGS CALCIUM TOTAL CYANOCOBA 33501 LAB [facility] LAB WILLY ALETA 6 CHIDI CHIDI VITAMIN HOLDINGS HOLDINGS B-12 BASIC 76574 [facility] METABOLIC 6 CHIDI CHIDI PANEL [place] [address] LAB WILL[facility] LAB WILL[facility] FREE 6 CHIDI CHIDI [place] [address] LAB WILL[facility] WILL[facility] THYROID 6 CHIDI CHIDI STIMULATI HOLDINGS HOLDINGS NG HORMONE TSH DUPLEX 26713 GARY GARY SCAN 6 MEM HOSP MEM HOSP EXTRACRAN [place] [address] [facility] THYROID 6 DIAGNOSTI DIAGNOSTI STIMULATI CS CS NG INCORPORA INCORPORA HORMONE T T TSH COMPREHEN 85304 [facility] SIVE 6 DIAGNOSTI DIAGNOSTI METABOLIC CS CS [place] [address] [facility] FREE 6 DIAGNOSTI DIAGNOSTI THYROXINE CS CS INCORPORA INCORPORA T T INJ J0702 A Adonis HUNTER BETAMETHA 6 TROY PEDRAZA SONE PSC ACETATE & PHOSPHATE 3 MG INJECTION J1030 A Adonis HUNTER 6 TROY PEDRAZA METHYLPRE PSC DNISOLONE ACETATE 40 MG INJECTION J3420 A Adonis HUNTER VIT B-12 6 TROY PEDRAZA PSC CYANOCOBA ALETA TO 1000 MCG THERAPEUT 70842 A Adonis HUNTER IC 6 TROY PEDRAZA PROPHYLAC PSC TIC/DX INJECTION SUBQ/[place] [address] [facility] FERRITIN 6 DIAGNOSTI DIAGNOSTI CS CS INCORPORA INCORPORA T T BLOOD 76854 [facility] COUNT 6 DIAGNOSTI DIAGNOSTI COMPLETE CS CS AUTO&AUTO INCORPORA INCORPORA DIFRNTL T T WBC CYANOCOBA 28360 [facility] LAB WILLY ALETA 6 CHIDI CHIDI VITAMIN HOLDINGS HOLDINGS B-12 BASIC 70840 [facility] WILLY METABOLIC 6 CHIDI CHIDI PANEL HOLDINGS [place] [address] LAB [facility] LAB WILLY FREE 6 CHIDI CHIDI [place] [address] LAB [facility] LAB WILLY THYROID 6 CHIDI CHIDI STIMULATI HOLDINGS HOLDINGS NG HORMONE TSH Encounters Encounter Start End Date Code Location Performer Type Date EMERGENCY 05292 AISHA ANDERSON DEPT 7 7 PHYSICIAN VISIT S, [facility] HIGH SEVERITY& THREAT FUNCJ OFFICE 77122 A Adonis TAY 7 7 [place] T VISIT PSC 15 MINUTES HOSPITAL GARY - 7 7 [facility] OUTPATIEN INC T OFFICE 75270 A Adonis TAY 7 7 [place] T VISIT PSC 15 MINUTES OFFICE 61045 A Adonis TAY 7 7 TROY [place] T VISIT PSC 15 MINUTES EMERGENCY 04805 GARY 7 7 [facility] DEPARTMEN INC T VISIT LOW/MODER SEVERITY HOSPITAL GARY - 7 7 [facility] OUTPATIEN INC T EMERGENCY 90262 AISHA ROWE 7 7 PHYSICIAN [facility] S, [facility] T VISIT HIGH/URGE NT SEVERITY OFFICE 96566 A Adonis TAY 7 7 [place] T VISIT PSC 15 MINUTES EMERGENCY 64407 AISHA ANDRE 7 7 PHYSICIAN [facility] S, [facility] T VISIT MODERATE SEVERITY EMERGENCY 86287 GARY 7 7 [facility] DEPARTMEN [facility] T VISIT HIGH/URGE NT SEVERITY HOSPITAL GARY - 7 7 [facility] OUTPATIEN INC T [facility] INPATIENT 7 7 [facility] DEANGELO [facility]PATIENT 7 7 [facility] GARY - 7 7 [facility] OUTPATIEN INC EMERGENCY 77210 GARY 7 7 [facility] DEPARTMEN [facility] T VISIT LOW/MODER SEVERITY HOSPITAL GARY - 6 6 MEM HOS[facility] OUTPATIEN INC T OFFICE 02544 Yakov HUNTER OUTPATIEN 6 6 TROY PEDRAZA T VISIT [facility] 15 MINUTES SPECIAL [facility] 6 6 MANOR - OTHER INC- SPECIAL [facility] 5 5 MANOR - OTHER INC- OFFICE 19647 JOANNE LEVINE RILEY OUTPATIEN 5 5 N Nettie [facility] NEUROLOGY MINUTES
--- OUTSIDE RECORDS SUMMARY | 2017-03-18 19:12 | External Medical Summary Rpt | CCD ---
Author Author , [place] Organization [employer] Address Unknown Phone [email or web address] Care Team Providers Care Last Model Department Supervisor Name Role Phone A Adonis SIMMONS MD PSC, Yakov Unavailable Unavailable Adonis SIMMONS MD PSC JUAREZ, JUAREZ Unavailable Unavailable [facility] Unavailable Unavailable SERVICE, [facility] Unavailable Unavailable SERVICE, [facility] Unavailable Unavailable [place], [facility] Unavailable Unavailable [facility] JR ROWE FULLER, Unavailable Unavailable ELSA OCHOA Unavailable Unavailable ELSA CABAN Unavailable Unavailable KEILA [facility], Unavailable Unavailable [facility] Unavailable Unavailable INC, [facility] Unavailable Unavailable HOSPITAL P, [facility], Unavailable Unavailable [facility] MONICA ANDERSON Unavailable Unavailable [facility] Un[facility], [facility] KILPELA, KILPELA Unavailable Unavailable [...] Diagnosis DOS Provider Status I10 ESSENTIAL 02-17-2017 [facility] HYPERTENSIO GROUP N I214 NON-ST 02-17-2017 [facility]ATION [facility] MYOCARDIAL GROUP INFARCTION I255 ISCHEMIC 02-17-2017 [facility] CARDIOMYOPA PHYSICIANS THY GROUP I5020 UNSPECIFIED 02-17-2017 [facility] SYSTOLIC PHYSICIANS CONGESTIVE GROUP HEART FAILURE E785 HYPERLIPIDE 02-15-2017 [facility] MACIEL PHYSICIANS UNSPECIFIED GROUP N18536 ASHD NUNAPITCHUK 02-15-2017 [facility] COR ART PHYSICIANS W/UNSTABLE GROUP ANGINA PECTORIS I6529 OCCLUSION & 02-15-2017 [facility] STENOSIS PHYSICIANS UNSPECIFIED GROUP CAROTID ARTERY N183 CHRONIC 02-15-2017 [facility] KIDNEY PHYSICIANS DISEASE GROUP STAGE 3 MODERATE 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 R410 DISORIENTAT 02-14-2017 [facility] ION PHYSICIANS, UNSPECIFIED PLLC R7989 OTHER SPEC 02-14-2017 [facility] ABNORMAL PHYSICIANS, FINDINGS PLLC BLOOD CHEMISTRY [id number] LACERATION 02-04-2017 A Adonis SIMMONS W/O FOREIGN [place]UM[place] PSC BODY LT LOW LEG SBSQT ENC [id number] UNS INJURY 02-04-2017 [facility] RT LOWER [facility] LEG INC SUBSEQUENT ENCOUNTER Q65PXCK FALL FROM 02-04-2017 A Adonis VELASQUEZ MD PSC SUBSEQUENT ENCOUNTER Z23 ENCOUNTER 02-04-2017 A Adonis CONWAY MD PSC IMMUNIZATIO N D649 ANEMIA 01-23-2017 [facility] UNSPECIFIED PHYSICIANS, PLLC [id number] LACERATION 01-23-2017 [facility]HA W/O FOREIGN PHYSICIANS, BODY LT PLLC LOW LEG INIT ENC O38892 OTHER LONG 01-23-2017 [facility] TERM [facility] CURRENT INC DRUG THERAPY E538 DEFICIENCY 01-20-2017 A Adonis SIMMONS OF [place] [facility] PSC SPECIFIED B GROUP VITAMINS M1990 UNSPECIFIED 01-20-2017 A Adonis SIMMONS MD PSC OSTEOARTHRI TIS UNSPECIFIED SITE [id number] OTHER SPEC 01-19-2017 [facility] INJURIES LT AMBULANCE LOWER LEG SERVICE INITIAL ENC E871 HYPO-OSMOLA 01-04-2017 [facility] LITY AND INC- HYPONATREMI A E876 HYPOKALEMIA 01-04-2017 [facility]- M6281 MUSCLE 01-04-2017 [facility] WEAKNESS INC- GENERALIZED R251 TREMOR 01-04-2017 [facility] UNSPECIFIED INC- R2681 UNSTEADINES 01-04-2017 [facility] S ON FEET INC- R269 UNSPECIFIED 01-04-2017 [facility]- ABNORMALITI ES OF GAIT AND MOBILITY G20 PARKINSONS 12-23-2016 [facility] DIS[facility] SERVICE I65910 ASHD NUNAPITCHUK 12-21-2016 [facility] SOTELO [facility] W/UNS HOSPITAL P ANGINA PECTORIS O29912 ATHEROSCLER 12-21-2016 [facility] P ARTERY CABG W/UNS AP R079 CHEST PAIN 12-21-2016 [facility] R531 WEAKNESS 12-21-2016 [facility] P R5383 OTHER 12-21-2016 [facility] E039 HYPOTHYROID 12-08-2016 [facility] ISM [facility] UNSPECIFIED HOLDINGS E782 MIXED 11-17-2016 [facility] HYPERLIPIDE [facility] MACIEL HOLDINGS Z9181 HISTORY OF 08-18-2016 [facility] E[facility] M542 CERVICALGIA 11-26-2015 [facility] HOLDINGS M549 DORSALGIA 11-26-2015 [facility] UNSPECIFIED [facility]I HOLDINGS I2510 ASHD NUNAPITCHUK 10-15-2015 [facility] CORONARY MEDICAL ARTERY W/O IMAGING ASS ANGINA PECTORIS R0989 OTH SPEC SX 10-15-2015 [facility] & SIGNS MEDICAL INVLV THE IMAGING ASS CIRC & RESP SYS E611 IRON 10-07-2015 [facility]ICIENCY DIAGNOSTICS INCORPORAT M545 LOW BACK 10-07-2015 Yakov SIMMONS PAIN [facility] D73780 PAIN IN 08-06-2015 [facility] RIGHT HIP [facility] HOLDINGS R296 REPEATED 06-06-2015 [employer] [facility] INC- G250 ESSENTIAL 05-13-2015 [facility] D64.9 ANEMIA, UNSPECIFIED G20 PARKINSON'S DISEASE HUE8869 M19.90 UNSPECIFIED OSTEOARTHRI TIS, UNSPECIFIED SITE M22.2X9 [...] -2 -2 0. D 66 SS ti RI 63 0- 8- 00 CA 58 ON ve N 79 20 20 0 RE 02 D3 [address] 1 PH EP 2, AR HE 00 MA N 0 CY A UN IT LL C SO FT GE L 00 07 07 0 18 18 ME 14 BE Ac TA 90 -2 -2 0. D 67 SS ti RI 44 7- 7- 00 CA 72 ON ve N 21 20 20 0 RE 90 B- [address] 12 3 PH EP AR HE 1, MA N 00 CY A 0 MC LL G C TA BL ET 00 07 07 0 10 10 ME 14 BE Ac TA 53 -2 -2 0. D 63 SS ti RI 63 0- 0- 00 CA 48 ON ve N 79 20 20 0 RE 12 D3 [address] 1 PH EP 2, AR HE 00 MA N 0 CY A UN IT LL C SO FT GE L 00 12 01 0 60 6 ME 12 BE Ac TA 53 -2 -2 .0 D 05 SS ti RI 63 9- 5- 00 CA 55 ON [...] 9- 8- .0 CA 14 ON ve FL 04 20 20 00 RE 37 OT [address] EC 4 PH EP T AR HE CR MA N EA CY A M LL C BA 11 12 12 0 14 15 ME 11 BE Ac ZA 70 -2 -2 20 D 97 SS ti 10 9- 9- .0 CA 38 ON ve FL 04 20 20 00 RE 56 OT [...] -2 -2 0. D 97 SS ti RI 63 9- 9- 00 CA 38 ON [...] Procedure DOS Code Location Performer Comment SBSQ 01284 [place] [address] PHYSICIAN CARE/DAY S GROUP 15 MINUTES SBSQ 84768 [place] [address] PHYSICIAN CARE/DAY S GROUP 15 MINUTES INITIAL [address]4499 [place] [address] PHYSICIAN CARE/DAY S GROUP 70 [place]UTES PRQ [address]52 [facility]AN TRLUML 7 PHYSICIAN CORONARY S GROUP STENT W/ANGIO ONE ART/BRNCH CATH PLMT 52206 [facility] NATHAN L 7 PHYSICIAN HRT/ARTS/ S GROUP [facility] WNJX & ANGIO IMG S&I ECG 64885 AISHA MONICA ROUTINE 7 PHYSICIAN ECG S, PLLC W/LEAST 12 LDS I&R ONLY RADIOLOGI 93832 [facility] VEGA C 7 [facility] H[facility] EXAMINATI INC INC ON TIBIA & FIBULA 2 VIEWS IIV 56857 A C [facility]TER VACCINE 7 [facility] [place] PRESERV PSC FREE INCREASED AG CONTENT IM ADMINISTR G0008 A Adonis HUNTER ATION OF 7 [facility] [place] INFLUENZA PSC VIRUS VACCINE DRESSING 44906 A Adonis HUNTER CHANGE 7 [place] UNDER PSC ANESTHESI A CUL BACT 85452 [facility] AEROBIC 7 [facility] ADDL INC INC METHS DEFINITIV E EA ISOL CUL BACT 96402 [facility] VE[facility] XCPT 7 [facility] URINE INC INC BLOOD/STO OL AEROBIC ISOL COLLECTIO 28960 [facility] N VENOUS 7 [facility] BLOOD INC INC VENIPUNCT URE SUSCEPTIB 10664 [facility] LTY STDY 7 [facility] ANTIMICRB INC INC IAL MICRO/AGA R DILUTJ BLOOD 05732 [facility] COUNT 7 [facility] COMPLETE INC INC AUTO&AUTO DIFRNTL WBC BLOOD 67605 A Adonis HUNTER COUNT 7 [place] COMPLETE PSC AUTO&AUTO DIFRNTL WBC COLLECTIO 61306 A Adonis HUNTER N VENOUS 7 [place] BLOOD PSC VENIPUNCT URE INJECTION J3301 A Adonis HUNTER 7 [place] TRIAMCINO PSC LONE ACETONIDE NOS 10 MG INJECTION J1030 A Adonis SIMMONS MD METHYLPRE PSC DNISOLONE ACETATE 40 MG INJECTION J3420 A Adonis HUNTER VIT B-12 7 [place] PSC CYANOCOBA ALETA TO 1000 MCG THERAPEUT 39862 A Adonis HUNTER IC 7 [place] PROPHYLAC PSC TIC/DX INJECTION SUBQ/IM AMB A0427 [facility] 7 AMBULANCE AMBULANCE ALS SERVICE SERVICE EMERGENCY TRANSPORT LEVEL 1 SMPL RPR 96190 AISHA ANDRE SCALP/NEC 7 PHYSICIAN U K/AX/GWENDOLYN S, PLLC T/TRUNK 12.6-20.0 CM IM ADM 54378 [facility] PRQ ID 7 [facility] SUBQ/IM INC INC NJXS 1 VACCINE TDAP 02945 [facility] VACCINE 7 7 [facility] YRS/> IM INC INC GROUND A0425 [facility] 7 AMBULANCE AMBULANCE PER SERVICE SERVICE STATUTE MILE O2 CONC 1 E1390 DEANGELO DEANGELO DEL PORT 7 MANOR MANOR 85%/>02 INC- INC- CONC [facility] FLW RATE BASIC 80351 COMBINED COMBINED METABOLIC 7 PHYSICIAN PHYSICIAN PANEL S LA S LA CALCIUM TOTAL TRAVEL [address] MED 7 PHYSICIAN PHYSICIAN NEC LAB S LA S LA SPEC; PRORAT ACTL MILE CYANOCOBA 32967 COMBINED COMBINED ALETA 7 PHYSICIAN PHYSICIAN VITAMIN S LA S LA B-12 BLOOD 78661 COMBINED COMBINED COUNT 7 PHYSICIAN PHYSICIAN COMPLETE S LA S LA AUTO&AUTO DIFRNTL WBC COLLECTIO 08254 COMBINED COMBINED N VENOUS 7 PHYSICIAN PHYSICIAN BLOOD S LA S LA VENIPUNCT URE O2 CONC 1 E1390 [facility]ELO DEANGELO DEL [place] 7 MANOR MANOR 85%/>02 INC- INC- CONC [facility] FLW RATE AMBULANCE A0428 [facility] SERVICE 7 AMBULANCE AMBULANCE BLS SERVICE SERVICE NONEMERGE NCY TRANSPORT SBSQ 12819 [facility] 7 PHYSICIAN CARE/DAY S GROUP 15 MINUTES GROUND A0425 [facility]ULANCE PER SERVICE SERVICE STATUTE MILE GROUND A0425 [facility] 7 AMBULANCE AMBULANCE PER SERVICE SERVICE STATUTE MILE RADIOLOGI 44068 [facility] 7 MEDICAL EXAMINATI IMAGING [place] [address] [facility] HEAD/BRAI 7 MEDICAL N W/O IMAGING CONTRAST ASS MATERIAL AMB A0427 [facility] SERVICE 7 AMBULANCE AMBULANCE ALS SERVICE SERVICE EMERGENCY TRANSPORT LEVEL 1 ECG 44640 GARY STEFANIE JR ROUTINE 7 [facility] W/LEAST P 12 LDS I&R ONLY URNLS DIP 88367 [facility] VEGA 7 [facility] STICK/TAB INC INC LET REAGENT AUTO MICROSCOP Y BLOOD 74604 [facility] COUNT 7 [facility] COMPLETE INC INC AUTO&AUTO DIFRNTL WBC COMPREHEN 66505 [facility] SIVE 7 [facility] METABOLIC INC INC PANEL COLLECTIO 67998 G[facility] N VENOUS 7 [facility] [place] [address] [facility] THYROID 7 CH[facility]I CHIDI STIMULATI HOLDINGS [place] [address] LAB [facility] FREE 7 [facility] [place] [address] [facility] WILLY THYROID 7 CHIDI CHIDI STIMULATI HOLDINGS HOLDINGS NG HORMONE TSH BASIC 39547 LAB [facility] LAB WILLY METABOLIC 7 [facility] PANEL HOLDINGS HOLDINGS CALCIUM TOTAL CYANOCOBA 92815 [facility] WILLY ALETA 7 [facility] VITAMIN HOLDINGS HOLDINGS B-12 SEAT E0156 [facility] ATTACHMEN 7 HOME HOME T WALKER MEDICAL MEDICAL EQUIPME EQUIPME WALKER E0143 [facility] [place] [facility] 7 HOME HOME WHEELED MEDICAL MEDICAL ADJUSTABL EQUIPME EQUIPME [place] [address] LAB [facility] LAB WILLY FREE 7 [facility] [place] [address] [facility] THYROID 7 CHIDI CHIDI STIMULATI HOLDINGS HOLDINGS NG HORMONE TSH BASIC 53760 LAB [facility] LAB WILLY METABOLIC 7 CHIDI CHIDI PANEL HOLDINGS HOLDINGS CALCIUM TOTAL BASIC 44120 LAB [facility] LAB WILLY METABOLIC 6 CHIDI CHIDI PANEL [place] [address] LAB [facility] WILLY THYROID 6 [facility] STIMULATI HOLD[place] [address] LAB [facility] LAB WILLY FREE 6 CHIDI CHIDI [place] [address] LAB [facility] LAB WILLY THYROID 6 CHIDI CHIDI STIMULATI HOLDINGS HOLDINGS NG HORMONE TSH BASIC 02946 LAB [facility] LAB WILLY METABOLIC 6 CHIDI CHIDI PANEL HOLDINGS HOLDINGS CALCIUM TOTAL CYANOCOBA 21565 LAB [facility] LAB WILLY ALETA 6 CHIDI CHIDI VITAMIN HOLDINGS HOLDINGS B-12 BASIC 47378 LAB [facility] LAB IWLLY METABOLIC 6 CHIDI CHIDI PANEL [place] [address] LAB WILL[facility] LAB WILLY FREE 6 CHIDI CHIDI [place] [address] LAB WILL[facility] LAB WILLY THYROID 6 CHIDI CHIDI STIMULATI HOLDINGS HOLDINGS NG HORMONE TSH DUPLEX 27229 GARY GARY SCAN 6 MEM HOS[facility]OS[facility] EXTRACRAN INC [place] [address] [facility] THYROID 6 DIAGNOSTI DIAGNOSTI STIMULATI CS CS NG INCORPORA INCORPORA HORMONE T T TSH COMPREHEN 47121 [facility] SIVE 6 DIAGNOSTI DIAGNOSTI METABOLIC CS [place] [address] [facility] FREE 6 DIAGNOSTI DIAGNOSTI THYROXINE CS CS INCORPORA INCORPORA T T INJ J0702 A Adonis HUNTER BETAMETHA 6 [facility]OY [facility] SONE PSC ACETATE & PHOSPHATE 3 MG INJECTION J1030 A Adonis HUNTER 6 [place] METHYLPRE PSC DNISOLONE ACETATE 40 MG INJECTION J3420 A Adonis HUNTER VIT B-12 6 [facility] [place] PSC CYANOCOBA ALETA TO 1000 MCG THERAPEUT 41284 A Adonis HUNTER IC 6 TROY [facility] PROPHYLAC PSC TIC/DX INJECTION SUBQ/[place] [address] [facility] FERRITIN 6 DIAGNOSTI DIAGNOSTI CS CS INCORPORA INCORPORA T T BLOOD 15363 [facility] COUNT 6 DIAGNOSTI DIAGNOSTI COMPLETE CS CS AUTO&AUTO INCORPORA INCORPORA DIFRNTL T T WBC CYANOCOBA 30457 [facility] LAB WILLY ALETA 6 CHIDI CHIDI VITAMIN HOLDINGS HOLDINGS B-12 BASIC 88959 [facility] WILLY METABOLIC 6 CHIDI CHIDI PANEL HOLD[place] [address] [facility] LAB WILLY FREE 6 CHIDI CHIDI [place] [address] [facility] THYROID 6 CHIDI CHIDI STIMULATI HOLDINGS HOLDINGS NG HORMONE TSH Encounters Encounter Start End Date Code Location Performer Type Date EMERGENCY 92392 AISHA ANDERSON DEPT 7 7 PHYSICIAN VISIT S, [facility] HIGH SEVERITY& THREAT FUNCJ OFFICE 04784 A Adonis TAY 7 7 [facility] T VISIT PSC 15 MINUTES HOSPITAL GARY - 7 7 [facility] OUTPATIEN INC T OFFICE 31683 A Adonis TAY 7 7 [place] T VISIT PSC 15 MINUTES OFFICE 07098 A Adonis TAY 7 7 [place] T VISIT PSC 15 MINUTES EMERGENCY 66609 GARY 7 7 [facility] DEPARTMEN INC T VISIT LOW/MODER SEVERITY HOSPITAL GARY - 7 7 [facility] OUTPATIEN INC T EMERGENCY 44468 AISHA ROWE 7 7 PHYSICIAN JR [facility] S, [facility] T VISIT HIGH/URGE NT SEVERITY OFFICE 98495 A Adonis TAY 7 7 [place] [place] T VISIT PSC 15 MINUTES EMERGENCY 94971 AISHA ANDRE 7 7 PHYSICIAN [facility] S, [facility] T VISIT MODERATE SEVERITY EMERGENCY 25454 GARY 7 7 [facility] DEPARTMEN [facility] T VISIT HIGH/URGE NT SEVERITY HOSPITAL GARY - 7 7 [facility] OUTPATIEN INC T [facility] - DEANGELO INPATIENT 7 7 [facility] INPATIENT 7 7 [facility] GARY - 7 7 [facility] OUTPATIEN INC EMERGENCY 58175 GARY 7 7 [facility] DEPARTMEN [facility] T VISIT LOW/MODER SEVERITY HOSPITAL GARY - 6 6 [facility] OUTPATIEN INC T OFFICE 70592 Yakov HUNTER OUTPATIEN 6 6 [facility] T VISIT [facility] 15 MINUTES SPECIAL [facility] 6 6 MANOR - OTHER INC- SPECIAL [facility] 5 5 MANOR - OTHER INC- OFFICE 07183 JOANNE LEVINE RILEY OUTPATIEN 5 5 N Nettie [facility] NEUROLOGY MINUTES
--- OUTSIDE RECORDS SUMMARY | 2017-03-18 19:13 | External Medical Summary Rpt | CCD ---
Author Author , VIRGINIA Organization VIRGINIA Address Unknown Phone [email or web address] Care Team Providers Care Learning And Development Manager Name Role Phone A Adonis SIMMONS MD PSC, Yakov Unavailable Unavailable Adonis SIMMONS MD PSC JUAREZ, JUAREZ Unavailable Unavailable [facility] Unavailable Unavailable SERVICE, [facility] Unavailable Unavailable SERVICE, [facility] Unavailable Unavailable [place], [facility] MARY JONELLE, Unavailable Unavailable MARY JONELLE [facility] Unavailable Unavailable [facility] JR ROWE FULLER, Unavailable Unavailable ELSA OCHOA Unavailable Unavailable ELSA CABAN Unavailable Unavailable [facility], Unavailable Unavailable [facility] Unavailable Unavailable INC, [facility] Un[facility] P, [facility], Unavailable Unavailable [facility] MONICA ANDERSON Unavailable Unavailable [facility] KILPELA, KILPELA Unavailable Unavailable [...] Diagnosis DOS Provider Status I10 ESSENTIAL 02-17-2017 [facility] PRIMARY PHYSICIANS HYPERTENSIO GROUP N I214 NON-ST 02-17-2017 [facility] ELEVATION PHYSICIANS MYOCARDIAL GROUP INFARCTION I255 ISCHEMIC 02-17-2017 [facility] CARDIOMYOPA PHYSICIANS THY GROUP I5020 UNSPECIFIED 02-17-2017 [facility] SYSTOLIC PHYSICIANS CONGESTIVE GROUP HEART FAILURE E785 HYPERLIPIDE 02-15-2017 [facility] MACIEL PHYSICIANS UNSPECIFIED GROUP [id number] ASHD RUBY 02-15-2017 [facility] COR ART PHYSICIANS W/UNSTABLE GROUP ANGINA PECTORIS I6529 OCCLUSION & 02-15-2017 [facility] STENOSIS PHYSICIANS UNSPECIFIED GROUP CAROTID ARTERY N183 CHRONIC 02-15-2017 [facility] KIDNEY PHYSICIANS DISEASE GROUP STAGE 3 MODERATE 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 [facility] PHYSICIANS AORTOCORONA GROUP RY BYPASS GRAFT R410 DISORIENTAT 02-14-2017 [facility] ION PHYSICIANS, UNSPECIFIED PLLC R7989 OTHER SPEC 02-14-2017 [facility] ABNORMAL PHYSICIANS, FINDINGS PLLC BLOOD CHEMISTRY [id number] LACERATION 02-04-2017 A Adonis SIMMONS W/O FOREIGN CUMMINGS PSC BODY LT LOW LEG SBSQT ENC [id number] UNS INJURY 02-04-2017 [facility] LEG INC SUBSEQUENT ENCOUNTER [id number] FALL FROM 02-04-2017 A Adonis VELASQUEZ MD PSC SUBSEQUENT ENCOUNTER Z23 ENCOUNTER 02-04-2017 A Adonis CONWAY MD PSC IMMUNIZATIO N D649 ANEMIA 01-23-2017 [facility] UNSPECIFIED PHYSICIANS, PLLC [id number] LACERATION 01-23-2017 [facility] W/O FOREIGN PHYSICIANS, BODY LT PLLC LOW LEG INIT ENC L35773 OTHER LONG 01-23-2017 [facility] CURRENT INC DRUG THERAPY E538 DEFICIENCY 01-20-2017 A Adonis SIMMONS OF [place] PSC SPECIFIED B GROUP VITAMINS M1990 UNSPECIFIED 01-20-2017 A Adonis SIMMONS MD PSC OSTEOARTHRI TIS UNSPECIFIED SITE [id number] OTHER SPEC 01-19-2017 [facility] INJURIES LT AMBULANCE [...] G20 PARKINSONS 12-23-2016 [facility] W21559 ASHD RUBY 12-21-2016 [facility] SOTELO [facility] W/UNS HOSPITAL P ANGINA PECTORIS T00289 ATHEROSCLER 12-21-2016 [facility] P ARTERY CABG W/UNS AP R079 CHEST PAIN 12-21-2016 [facility] R531 WEAKNESS 12-21-2016 [facility] P R5383 OTHER 12-21-2016 [facility] E039 HYPOTHYROID 12-08-2016 [facility] ISM CH[facility]I UNSPECIFIED HOLDINGS E782 MIXED 11-17-2016 [facility] HYPERLIPIDE CHIDI MACIEL HOLDINGS Z9181 HISTORY OF 08-18-2016 [facility] M542 CERVICALGIA 11-26-2015 [facility] CH[facility]I HOLDINGS M549 DORSALGIA 11-26-2015 [facility] UNSPECIFIED CHIDI HOLDINGS I2510 ASHD RUBY 10-15-2015 [place] CORONARY [facility]ICAL ARTERY W/O [facility]AGING ASS ANGINA PECTORIS R0989 OTH SPEC SX 10-15-2015 [place] & SIGNS [facility]ICAL INVLV THE IMAGING ASS CIRC & RESP SYS E611 IRON 10-07-2015 [facility]NOSTICS INCORPORAT M545 LOW BACK 10-07-2015 A C TROY PAIN [facility] [id number] PAIN IN 08-06-2015 [facility] RIGHT HIP CH[facility] HOLDINGS R296 REPEATED 06-06-2015 [facility]- G250 ESSENTIAL 05-13-2015 [facility] Medications Na ND Rx Da Fi Fi [...] 9- 8- .0 CA 14 ON ve MN 04 20 20 00 RE 37 OT [address] EC 4 PH EP T AR HE CR MA N EA CY A M LL C BA 11 12 12 0 14 15 ME 11 BE Ac ZA 70 -2 -2 20 D 97 SS ti 10 9- 9- .0 CA 38 ON ve MN 04 20 20 00 RE 56 OT [...] 1-20 NER WRIG INE 17 HT PRES ERV PSC FREE INCR EASE D AG CONT ENT IM TDAP 08-1 115 LYN No LYN 6-20 ROGELIO ROGELIO VACC 17 MEM MEM INE 7 HOSP HOSP YRS/ INC INC > IM Procedures Procedure DOS Code Location Performer Comment SBSQ 20422 [facility] 7 PHYSICIAN CARE/DAY S GROUP 15 MINUTES SBSQ 35342 [facility] 7 PHYSICIAN CARE/DAY S GROUP 15 MINUTES CATH PLMT 65126 [facility] L 7 PHYSICIAN HRT/ARTS/ S GROUP GRFTS WNJX & ANGIO IMG S&I INITIAL 54576 [facility] 7 PHYSICIAN CARE/DAY S GROUP 70 [place] PRQ 35062 [facility] TRLUML 7 PHYSICIAN CORONARY S GROUP STENT W/ANGIO ONE ART/BRNCH ECG 84307 AISHA [facility] ROUTINE 7 PHYSICIAN ECG S, PLLC W/LEAST 12 LDS I&R ONLY IIV 53688 A C H[facility]TER VACCINE 7 [place] PRESERV PSC FREE INCREASED AG CONTENT IM ADMINISTR G0008 A Adonis HUNTER ATION OF 7 [place] INFLUENZA PSC VIRUS VACCINE RADIOLOGI 57925 [facility] C 7 MEM HOS[facility] EXAMINATI INC INC ON TIBIA & FIBULA 2 VIEWS DRESSING 26254 A Adonis HUNTER CHANGE 7 [place] UNDER PSC ANESTHESI A CUL BACT 44657 [facility] XCPT 7 [facility] URINE INC INC BLOOD/STO OL AEROBIC ISOL BLOOD 99722 [facility] COUNT 7 [facility] COMPLETE INC INC AUTO&AUTO DIFRNTL WBC SUSCEPTIB 13912 [facility] LTY STDY 7 [facility] ANTIMICRB INC INC IAL MICRO/AGA R DILUTJ CUL BACT 50961 [facility] AEROBIC 7 [facility] ADDL INC INC METHS DEFINITIV E EA ISOL COLLECTIO 09910 GAYR VEGA N VENOUS 7 [facility] BLOOD INC INC VENIPUNCT URE INJECTION J3301 A Adonis HUNTER 7 [place] TRIAMCINO PSC LONE ACETONIDE NOS 10 MG COLLECTIO 91534 Yakov HUNTER N VENOUS 7 [place] BLOOD PSC VENIPUNCT URE BLOOD 19005 A Adonis HUNTER COUNT 7 [place] COMPLETE PSC AUTO&AUTO DIFRNTL WBC INJECTION J1030 Yakov Adonis HUNTER 7 [place] METHYLPRE PSC DNISOLONE ACETATE 40 MG THERAPEUT 45999 A Adonis HUNTER IC 7 [place] PROPHYLAC PSC TIC/DX INJECTION SUBQ/IM INJECTION J3420 Yakov Adonis HUNTER VIT B-12 7 [place] PSC CYANOCOBA ALETA TO 1000 MCG AMB A0427 [facility] SERVICE 7 AMBULANCE AMBULANCE ALS SERVICE SERVICE EMERGENCY TRANSPORT LEVEL 1 SMPL RPR 63482 [facility] SCALP/NEC 7 [facility] K/AX/GWENDOLYN INC INC T/TRUNK 12.6-20.0 CM GROUND A0425 [facility] 7 AMBULANCE AMBULANCE PER SERVICE SERVICE STATUTE MILE IM ADM 18313 [facility] PRQ ID 7 [facility] SUBQ/IM INC INC NJXS 1 VACCINE TDAP 18629 [facility] VACCINE 7 7 [facility] YRS/> IM INC INC O2 CONC 1 E1390 [facility]ELO DEANGELO DEL PORT 7 MANOR MANOR 85%/>02 INC- INC- CONC AT [facility] FLW RATE BASIC 89781 COMBINED COMBINED METABOLIC 7 PHYSICIAN PHYSICIAN PANEL S LA S LA CALCIUM TOTAL CYANOCOBA 32872 COMBINED COMBINED ALETA 7 PHYSICIAN PHYSICIAN VITAMIN S LA S LA B-[address]VEL [address] MED 7 PHYSICIAN PHYSICIAN NEC LAB S LA S LA SPEC; PRORAT ACTL MILE BLOOD 10064 [facility] COMBINED COUNT 7 PHYSICIAN PHYSICIAN COMPLETE S LA S LA AUTO&AUTO DIFRNTL WBC COLLECTIO 01662 COMBINED COMBINED N VENOUS 7 PHYSICIAN PHYSICIAN BLOOD S LA S LA VENIPUNCT URE O2 CONC 1 E1390 [facility]ANGELO DEANGELO DEL PORT 7 MANOR MANOR 85%/>02 INC- INC- CONC AT [facility] FLW RATE SBSQ 56917 [facility] 7 PHYSICIAN CARE/DAY S GROUP 15 MINUTES AMBULANCE A0428 [facility] SERVICE 7 AMBULANCE AMBULANCE BLS SERVICE SERVICE NONEMERGE NCY TRANSPORT GROUND A0425 [facility] 7 AMBULANCE AMBULANCE PER SERVICE SERVICE STATUTE MILE GROUND A0425 [facility]ULANCE PER SERVICE SERVICE STATUTE MILE ECG 81967 [facility]ARY WATTS JR ROUTINE 7 [facility] W/LEAST P 12 LDS I&R ONLY AMB A0427 [facility] SERVICE 7 AMBULANCE AMBULANCE ALS SERVICE SERVICE [place] [address] ELIZABETH JUAREZ HEAD/BRAI 7 MEDICAL N W/O IMAGING CONTRAST ASS MATERIAL RADIOLOGI 61603 ELIZABETH JUAREZ C 7 MEDICAL EXAMINATI IMAGING ON CHEST ASS SINGLE VIEW FRONTAL BLOOD 88689 [facility] COUNT 7 [facility] COMPLETE INC INC AUTO&AUTO DIFRNTL WBC URNLS DIP 42733 [facility] VEGA 7 [facility] STICK/TAB INC INC LET REAGENT AUTO MICROSCOP Y COLLECTIO 13780 [facility] N VENOUS 7 [facility] BLOOD INC INC VENIPUNCT URE COMPREHEN 90092 G[facility] SIVE 7 [facility] [place] [address] [facility] LAB IWLLY THYROID 7 CHIDI CHIDI STIMULATI [place]INGS [place] [address] LAB [facility] LAB WILLY THYROID 7 CHIDI CHIDI STIMULATI HOLDINGS [place] [address] LAB [facility] WILL[facility] FREE [facility] THYROXINE HOLDINGS HOLDINGS BASIC 67741 LAB [facility] LAB WILLY METABOLIC 7 CHIDI CHIDI PANEL HOLDINGS HOLDINGS CALCIUM TOTAL CYANOCOBA 52421 [facility] LAB IWLLY ALETA 7 CHIDI CHIDI VITAMIN HOLDINGS HOLDINGS B-12 SEAT E0156 [facility] ATTACHMEN 7 HOME HOME T WALKER MEDICAL MEDICAL EQUIPME EQUIPME WALKER E0143 [facility] FOLDING 7 HOME HOME WHEELED MEDICAL MEDICAL ADJUSTABL EQUIPME EQUIPME [place] [address] [facility] LAB WILLY THYROID 7 CHIDI CHIDI STIMULATI HOLDINGS [place] [address] [facility] FREE [facility] THYRO[facility] HOLDINGS BASIC 23676 LAB [facility] LAB WILLY METABOLIC 7 CHIDI CHIDI PANEL HOLDINGS HOLDINGS CALCIUM TOTAL BASIC 65516 LAB [facility] LAB WILLY METABOLIC 6 CHIDI CHIDI PANEL [place] [address] LAB [facility] LAB WILLY THYROID 6 CHIDI CHIDI STIMULATI HOLD[place] [address] LAB [facility] LAB WILLY THYROID 6 CHIDI CHIDI STIMULATI HOLDINGS [place] [address] LAB [facility] LAB WILLY FREE 6 CHIDI CHIDI THYROXINE HOLDINGS HOLDINGS BASIC 00689 LAB [facility] LAB WILLY METABOLIC 6 CHIDI CHIDI PANEL HOLDINGS HOLDINGS CALCIUM TOTAL CYANOCOBA 07290 LAB WILL[facility] LAB WILLY ALETA 6 CHIDI CHIDI VITAMIN HOLDINGS HOLDINGS B-12 BASIC 69765 LAB [facility] LAB WILLY METABOLIC 6 CHIDI CHIDI PANEL [place] [address] LAB [facility] LAB WILLY THYROID 6 CHIDI CHIDI STIMULATI [place] [address] [facility] FREE [facility] THYROXINE HOLDINGS HOLDINGS DUPLEX 00486 [place] [facility] SCAN 6 MEDICAL JONELLE EXTRACRAN IMAGING IAL ART ASS COMPL BI STUDY INJECTION J1030 A Adonis HUNTER 6 TROY [facility] METHYLPRE PSC DNISOLONE ACETATE 40 MG INJ J0702 A Adonis HUNTER BETAMETHA 6 TROY [place] SONE PSC ACETATE & PHOSPHATE 3 MG THERAPEUT 79053 A Adonis HUNTER IC 6 [place] PROPHYLAC PSC TIC/DX INJECTION SUBQ/IM INJECTION J3420 A Adonis HUNTER VIT B-12 6 TROY [place]EDRA[place] PSC CYANOC[place] TO [address] [place] [address] [facility] FERRITIN 6 DIAGNOSTI DIAGNOSTI [place] [address] [facility] FREE 6 DIAGNOSTI DIAGNOSTI THYROXINE CS CS INCORPORA INCORPORA T T COMPREHEN 88127 [facility] SIVE 6 DIAGNOSTI DIAGNOSTI METABOLIC CS [place] [address] [facility] THYROID 6 DIAGNOSTI DIAGNOSTI STIMULATI CS CS NG INCORPORA INCORPORA HORMONE T T TSH BLOOD 99924 [facility] COUNT 6 DIAGNOSTI DIAGNOSTI COMPLETE CS CS AUTO&AUTO INCORPORA INCORPORA DIFRNTL T T WBC CYANOCOBA 80809 [facility] LAB WILLY ALETA 6 CHIDI CHIDI VITAMIN HOLDINGS HOLDINGS B-12 BASIC 83170 [facility] WILLY METABOLIC 6 CHIDI CHIDI PANEL HOLDINGS [place] [address] [facility] LAB WILLY THYROID 6 CHIDI CHIDI STIMULATI HOLDINGS [place] [address] [facility] LAB WILLY FREE 6 CHIDI CHIDI THYROXINE HOLDINGS HOLDINGS Encounters Encounter Start End Date Code Location Performer Type Date EMERGENCY 17669 AISHA ANDERSON DEPT 7 7 PHYSICIAN VISIT S, [facility] HIGH SEVERITY& THREAT FUNCJ OFFICE 09889 A Adonis TAY 7 7 [facility] T VISIT PSC 15 MINUTES HOSPITAL [facility] - 7 7 [facility] OUTPATIEN [facility] T OFFICE 73919 A Adonis TAY 7 7 [place] T VISIT PSC 15 MINUTES OFFICE 92409 A Adonis TAY 7 7 [place] T VISIT PSC 15 MINUTES HOSPITAL GARY - 7 7 [facility] OUTPATIEN [facility] T EMERGENCY 83576 AISHA ROWE, 7 7 PHYSICIAN JR [facility] S, [facility] T VISIT HIGH/URGE NT SEVERITY EMERGENCY 64454 GARY 7 7 [facility] T VISIT LOW/MODER SEVERITY OFFICE 69022 A Adonis TAY 7 7 [place] T VISIT PSC 15 MINUTES EMERGENCY 08151 AISHA ANDRE 7 7 PHYSICIAN [facility] S, [facility] T VISIT MODERATE SEVERITY HOSPITAL GARY - 7 7 [facility] OUTPATIEN [facility] T EMERGENCY 47456 GARY 7 7 [facility] T VISIT HIGH/URGE NT SEVERITY [facility] 7 7 [facility] [place] INPATIENT 7 7 [facility] INC- HOSPITAL GARY - 7 7 [facility] OUTPATIEN INC T EMERGENCY 98246 GARY 7 7 [facility] DEPARTMEN [facility] T VISIT LOW/MODER SEVERITY [facility] GARY - 6 6 [facility] H[facility] OUTPATIEN [facility] T OFFICE 82466 [facility] 6 [facility] VISIT [facility] 15 MINUTES [facility] 6 6 [facility] - OTHER [facility]- [facility] 5 5 [facility] - OTHER INC- OFFICE 98748 [facility] 5 5 N T [facility] 45 NEUROLOGY MINUTES
--- OUTSIDE RECORDS SUMMARY | 2017-03-18 19:13 | External Medical Summary Rpt | CCD ---
Author Author , VIRGINIA Organization VIRGINIA Address Unknown Phone [email or web address] Care Team Providers Care Boat Builder Name Role Phone A Adonis SIMMONS MD [facility], Yakov Unavailable Unavailable Adonis SIMMONS MD PSC JUAREZ, JUAREZ Unavailable Unavailable [facility] Unavailable Unavailable SERVICE, [facility] Unavailable Unavailable SERVICE, [facility] Unavailable Unavailable [place], [facility] MARY JNOELLE, Unavailable Unavailable MARY JONELLE [facility] Unavailable Unavailable [facility] JR ROWE FULLER, Unavailable Unavailable ELSA OCHOA Unavailable Unavailable ELSA CABAN Unavailable Unavailable [facility], Unavailable Unavailable [facility] Un[facility] Un[facility], [facility] Un[facility] Un[facility], [facility], Unavailable Unavailable [facility] MONICA ANDERSON Unavailable Unavailable [facility] KILPELA, KILPELA Unavailable Unavailable [...] Diagnosis DOS Provider Status I10 ESSENTIAL 02-17-2017 [facility] HYPERTENSIO GROUP N 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 02-17-2017 [facility] CARDIOMYOPA PHYSICIANS THY GROUP I5020 UNSPECIFIED 02-17-2017 [facility] SYSTOLIC PHYSICIANS CONGESTIVE GROUP HEART FAILURE E785 HYPERLIPIDE 02-15-2017 [facility] MACIEL PHYSICIANS UNSPECIFIED GROUP X05120 [facility] [place] 02-15-2017 [facility] COR ART PHYSICIANS W/UNSTABLE GROUP ANGINA PECTORIS I6529 OCCLUSION & 02-15-2017 [facility] STENOSIS PHYSICIANS UNSPECIFIED GROUP CAROTID ARTERY N183 CHRONIC 02-15-2017 [facility] KIDNEY PHYSICIANS DISEASE GROUP STAGE 3 MODERATE 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 R410 DISORIENTAT 02-14-2017 [facility] ION PHYSICIANS, UNSPECIFIED PLLC R7989 OTHER SPEC 02-14-2017 [facility] ABNORMAL PHYSICIANS, FINDINGS PLLC BLOOD CHEMISTRY [id number] LACERATION 02-04-2017 A Adonis SIMMONS W/O FOREIGN [facility] PSC BODY LT LOW LEG SBSQT ENC [id number] UNS INJURY 02-04-2017 [facility] LEG INC SUBSEQUENT ENCOUNTER [id number] FALL FROM 02-04-2017 A Adonis VELASQUEZ MD PSC SUBSEQUENT ENCOUNTER Z23 ENCOUNTER 02-04-2017 A Adonis CONWAY MD PSC IMMUNIZATIO N D649 ANEMIA 01-23-2017 [facility] UNSPECIFIED PHYSICIANS, PLLC [id number] LACERATION 01-23-2017 [facility] W/O FOREIGN PHYSICIANS, BODY LT PLLC LOW LEG INIT ENC [id number] OTHER LONG 01-23-2017 [facility] CURRENT INC DRUG THERAPY E538 DEFICIENCY 01-20-2017 A Adonis SIMMONS OF [place] [facility] PSC SPECIFIED B GROUP VITAMINS M1990 UNSPECIFIED 01-20-2017 A Adonis SIMMONS MD PSC OSTEOARTHRI TIS UNSPECIFIED SITE [id number] OTHER SPEC 01-19-2017 [facility] INJURIES LT AMBULANCE [...] G20 PARKINSONS 12-23-2016 [facility] X45495 [place] [place] 12-21-2016 [facility] SOTELO [facility] P ANGINA PECTORIS J86392 ATHEROSCLER 12-21-2016 [facility] P ARTERY CABG W/UNS AP R079 CHEST PAIN 12-21-2016 [place] [facility] R531 WEAKNESS 12-21-2016 [facility] R5383 OTHER 12-21-2016 [place] [facility] E039 HYPOTHYROID 12-08-2016 [facility] ISM [facility] UNSPECIFIED HOLDINGS E782 MIXED 11-17-2016 [facility] HYPERLIPIDE [facility] MACIEL HOLDINGS Z9181 HISTORY OF 08-18-2016 [facility] M542 CERVICALGIA 11-26-2015 [facility] HOLDINGS M549 DORSALGIA 11-26-2015 [facility] UNSPECIFIED [facility] HOLDINGS I2510 [facility] [place] 10-15-2015 [place] 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 D 66 [place] 63 0- 8- 00 CA 58 ON ve N 79 20 20 0 RE 02 D3 [address] 1 PH EP 2, AR HE 00 MA N 0 CY A UN IT LL C SO FT GE L 00 07 07 0 18 18 ME 14 BE Ac TA 90 -2 -2 0. D 67 SS [place] 44 7- 7- 00 CA 72 ON ve N 21 20 20 0 RE 90 B- [address] 12 3 PH EP AR HE 1, MA N 00 CY A 0 MC LL G C TA BL ET 00 07 07 0 10 10 ME 14 BE Ac TA 53 -2 -2 0. D 63 SS ti [place] 63 0- 0- 00 CA 48 ON ve N 79 20 20 0 RE 12 D3 [address] 1 PH EP 2, AR HE 00 MA N 0 CY A UN IT LL C SO FT GE L 00 12 01 0 60 6 ME 12 BE Ac TA 53 -2 -2 .0 D 05 SS ti IL 63 9- 5- 00 CA 55 ON [...] 9- 8- .0 CA 14 ON ve DC 04 20 20 00 RE 37 OT [address] EC 4 PH EP T AR HE CR MA N EA CY A M LL C BA 11 12 12 0 14 15 ME 11 BE Ac ZA 70 -2 -2 20 D 97 SS ti 10 9- 9- .0 CA 38 ON ve DC 04 20 20 00 RE 56 OT [...] -2 -2 0. D 97 SS ti [place] 63 9- 9- 00 CA 38 ON [...] Procedure DOS Code Location Performer Comment SBSQ 91295 [facility] 7 PHYSICIAN CARE/DAY S GROUP 15 MINUTES SBSQ 26379 [facility] 7 PHYSICIAN CARE/DAY S GROUP 15 MINUTES CATH PLMT 23573 [facility] L 7 PHYSICIAN HRT/ARTS/ S GROUP GRFTS WNJX & ANGIO IMG S&I INITIAL 01475 [facility] 7 PHYSICIAN CARE/DAY S GROUP 70 [place] PRQ [address]147 [facility] TRLUML 7 PHYSICIAN CORONARY S GROUP STENT W/ANGIO ONE ART/BRNCH ECG 58625 AISHA [facility] ROUTINE 7 PHYSICIAN ECG S, PLLC W/LEAST 12 LDS I&R ONLY IIV 84728 A C [facility] VACCINE 7 [facility] [place] PRESERV PSC FREE INCREASED AG CONTENT IM ADMINISTR G0008 A Adonis HUNTER ATION OF 7 [facility] [place] INFLUENZA PSC VIRUS VACCINE RADIOLOGI 85373 [facility] C 7 [facility] EXAMINATI INC INC ON TIBIA & FIBULA 2 VIEWS DRESSING 47504 A Adonis H[facility]TER CHANGE 7 [facility] [place] UNDER PSC ANESTHESI A CUL BACT 61483 [facility] XCPT 7 [facility] URINE INC INC BLOOD/STO OL AEROBIC ISOL BLOOD 15195 [facility] COUNT 7 [facility] COMPLETE INC INC AUTO&AUTO DIFRNTL WBC SUSCEPTIB 68280 [facility] LTY STDY 7 [facility] ANTIMICRB INC INC IAL MICRO/AGA R DILUTJ CUL BACT 99573 [facility] AEROBIC 7 [facility] ADDL INC INC METHS DEFINITIV E EA ISOL COLLECTIO 07626 [facility] N VENOUS 7 [facility] BLOOD INC INC VENIPUNCT URE INJECTION J3301 A Adonis HUNTER 7 [place] TRIAMCINO PSC LONE ACETONIDE NOS 10 MG COLLECTIO 29641 Yakov H[facility]TER N VENOUS 7 [place] BLOOD PSC VENIPUNCT URE BLOOD 73413 A Adonis HUNTER COUNT 7 [place] COMPLETE PSC AUTO&AUTO DIFRNTL WBC INJECTION J1030 Yakov Adonis HUNTER 7 [place] METHYLPRE PSC DNISOLONE ACETATE 40 MG THERAPEUT 16351 A Adonis HUNTER IC 7 [place] PROPHYLAC PSC TIC/DX INJECTION SUBQ/IM INJECTION J3420 Yakov Adonis HUNTER VIT B-12 7 [place] PSC CYANOCOBA ALETA TO 1000 MCG AMB A0427 [facility] SERVICE 7 AMBULANCE AMBULANCE ALS SERVICE SERVICE EMERGENCY TRANSPORT LEVEL 1 SMPL RPR 27598 [facility] SCALP/NEC 7 [facility] K/AX/GWENDOLYN INC INC T/TRUNK 12.6-20.0 CM GROUND A0425 [facility] 7 AMBULANCE AMBULANCE PER SERVICE SERVICE STATUTE MILE IM ADM 13526 [facility] PRQ ID 7 [facility] SUBQ/IM INC INC NJXS 1 VACCINE TDAP 37967 [facility] VACCINE 7 7 [facility] YRS/> IM INC INC O2 CONC 1 E1390 [facility] DEANGELO DEL [facility] 7 MANOR MANOR 85%/>02 INC- INC- CONC AT [facility] FLW RATE BASIC 10010 COMBINED COMBINED METABOLIC 7 PHYSICIAN PHYSICIAN PANEL S LA S LA CALCIUM TOTAL CYANOCOBA 98281 [facility] COMBINED ALETA 7 PHYSICIAN PHYSICIAN VITAMIN S LA S LA B-[address]VEL [address] MED 7 PHYSICIAN PHYSICIAN NEC LAB S LA S LA SPEC; PRORAT ACTL MILE BLOOD 87440 [facility] COMBINED COUNT 7 PHYSICIAN PHYSICIAN COMPLETE S LA S LA AUTO&AUTO DIFRNTL WBC COLLECTIO 39122 COM[facility] COMBINED N VENOUS 7 PHYSICIAN PHYSICIAN BLOOD S LA S LA VENIPUNCT URE O2 CONC 1 E1390 DEANGELO DEANGELO DEL PORT 7 MANOR MANOR 85%/>02 INC- INC- CONC AT [facility] FLW RATE SBSQ 21676 [facility] 7 PHYSICIAN CARE/DAY S GROUP 15 MINUTES AMBULANCE A0428 [facility] SERVICE 7 AMBULANCE AMBULANCE BLS SERVICE SERVICE NONEMERGE NCY TRANSPORT GROUND A0425 [facility] 7 AMBULANCE AMBULANCE PER SERVICE SERVICE STATUTE MILE GROUND A0425 [facility] AM[facility]ULANCE AMBULANCE PER SERVICE SERVICE STATUTE MILE ECG 35458 GARY WATTS JR ROUTINE 7 [facility] W/LEAST P 12 LDS I&R ONLY AMB A0427 [facility] SERVICE 7 AMBULANCE AMBULANCE ALS SERVICE SERVICE [place] [address] ELIZABETH JUAREZ HEAD/BRAI 7 MEDICAL N W/O IMAGING CONTRAST ASS MATERIAL RADIOLOGI 68401 ELIZABETH JUAREZ C 7 MEDICAL EXAMINATI IMAGING ON CHEST ASS SINGLE VIEW FRONTAL BLOOD 61335 [facility] COUNT 7 [facility] COMPLETE INC INC AUTO&AUTO DIFRNTL WBC URNLS DIP 08631 [facility]GA 7 [facility] STICK/TAB INC INC LET REAGENT AUTO MICROSCOP Y COLLECTIO 43559 [facility] N VENOUS 7 [facility] BLOOD INC INC VENIPUNCT URE COMPREHEN 53644 [facility] SIVE 7 [facility] [place] [address] [facility] THYROID 7 CHIDI CHIDI STIMULATI HOLDINGS [place] [address] LAB [facility]Y THYROID 7 CHIDI CHIDI STIMULATI HOLDINGS [place] [address] LAB [facility] LAB WILLY FREE 7 [facility] THYROXINE HOLDINGS HOLDINGS BASIC 72510 LAB [facility] LAB WILLY METABOLIC 7 CHIDI CHIDI PANEL HOLDINGS HOLDINGS CALCIUM TOTAL CYANOCOBA 78911 [facility] LAB WILLY ALETA 7 CHIDI CHIDI VITAMIN HOLDINGS HOLDINGS B-12 SEAT E0156 [facility] ATTACHMEN 7 HOME HOME T WALKER MEDICAL MEDICAL EQUIPME EQUIPME WALKER E0143 [facility] FOLDING 7 HOME HOME WHEELED MEDICAL MEDICAL ADJUSTABL EQUIPME EQUIPME [place] [address] LAB [facility] THYROID 7 CHIDI CHIDI STIMULATI HOLDINGS [place] [address] LAB WILLY LAB WILLY FREE 7 [facility] THYROXINE HOLDINGS HOLDINGS BASIC 37008 LAB WILL[facility] LAB WILLY METABOLIC 7 CHIDI CHIDI PANEL HOLDINGS HOLDINGS CALCIUM TOTAL BASIC 35674 LAB [facility] LAB WILLY METABOLIC 6 CHIDI CHIDI PANEL [place] [address] LAB [facility] LAB WILLY THYROID 6 CHIDI CHIDI STIMULATI HOLD[place] [address] LAB WILLY LAB WILLY THYROID 6 CHIDI CHIDI STIMULATI HOLD[place] [address] LAB [facility] LAB WILLY FREE 6 CHIDI CHIDI THYROXINE HOLDINGS HOLDINGS BASIC 87929 LAB WILLY LAB WILLY METABOLIC 6 CHIDI CHIDI PANEL HOLDINGS HOLDINGS CALCIUM TOTAL CYANOCOBA 73206 LAB WILLY LAB WILLY ALETA 6 CHIDI CHIDI VITAMIN HOLDINGS HOLDINGS B-12 BASIC 67146 LAB [facility] LAB WILLY METABOLIC 6 CHIDI CHDII PANEL HOLD[place] [address] LAB [facility] LAB WILLY THYROID 6 CHIDI CHIDI STIMULATI [place] [address] [facility] FREE 6 [facility] THYROXINE HOLDINGS HOLDINGS DUPLEX 43694 [place] MARY SCAN 6 MEDICAL JONELLE EXTRACRAN IMAGING IAL ART ASS COMPL BI STUDY INJECTION J1030 A Adonis HUNTER 6 [facility] METHYLPRE PSC DNISOLONE ACETATE 40 MG INJ J0702 A Adonis HUNTER BETAMETHA 6 [facility] SONE PSC ACETATE & PHOSPHATE 3 MG THERAPEUT 44026 A Adonis HUNTER IC 6 [facility] PROPHYLAC PSC TIC/DX INJECTION SUBQ/IM INJECTION J3420 A Adonis HUNTER VIT B-12 6 [facility] PSC CYAN[place] TO [address] [place] [address] [facility] FERRITIN 6 DIAGNOSTI DIAGNOSTI [place] [address] [facility] FREE 6 DIAGNOSTI DIAGNOSTI THYROXINE CS CS INCORPORA INCORPORA T T COMPREHEN 59935 [facility] SIVE 6 DIAGNOSTI DIAGNOSTI METABOLIC CS CS [place] [address] [facility] THYROID 6 DIAGNOSTI DIAGNOSTI STIMULATI CS CS NG INCORPORA INCORPORA HORMONE T T TSH BLOOD 55642 [facility] COUNT 6 DIAGNOSTI DIAGNOSTI COMPLETE CS CS AUTO&AUTO INCORPORA INCORPORA DIFRNTL T T WBC CYANOCOBA 24202 [facility] WILLY ALETA 6 CHIDI CHIDI VITAMIN HOLDINGS HOLDINGS B-12 BASIC 57176 [facility] METABOLIC 6 CHIDI CHIDI PANEL HOLDINGS [place] [address] [facility] THYROID 6 CHIDI CHIDI STIMULATI HOLD[place] [address] [facility] FREE 6 CHIDI CHIDI THYROXINE HOLDINGS HOLDINGS Encounters Encounter Start End Date Code Location Performer Type Date EMERGENCY 47559 AISHA ANDERSON DEPT 7 7 PHYSICIAN VISIT S, [facility] HIGH SEVERITY& THREAT FUNCJ OFFICE 69220 A Adonis TAY 7 7 [facility] T VISIT PSC 15 MINUTES HOSPITAL [facility] - 7 7 [facility] OUTPATIEN [facility] T OFFICE 25945 A Adonis TAY 7 7 [place] [place] T VISIT PSC 15 MINUTES OFFICE 00657 A Adonis TAY 7 7 [facility] [place] T VISIT PSC 15 MINUTES HOSPITAL GARY - 7 7 [facility] OUTPATIEN [facility] T EMERGENCY 28573 AISHA ROWE, 7 7 PHYSICIAN JR [facility] S, [facility] T VISIT HIGH/URGE NT SEVERITY EMERGENCY 20593 GARY 7 7 [facility] T VISIT LOW/MODER SEVERITY OFFICE 05582 A Adonis TAY 7 7 [facility] [place] T VISIT PSC 15 MINUTES EMERGENCY 14514 AISHA ANDRE 7 7 PHYSICIAN [facility] S, [facility] T VISIT MODERATE SEVERITY HOSPITAL GARY - 7 7 [facility] OUTPATIEN [facility] T EMERGENCY 87814 GARY 7 7 [facility] T VISIT HIGH/URGE NT SEVERITY [facility] 7 [facility] INPATIENT 7 7 MAN[facility] INC- HOSPITAL GARY - 7 7 [facility] OUTPATIEN INC T EMERGENCY 38557 GARY 7 7 [facility] DEPARTMEN [facility] T VISIT LOW/MODER SEVERITY [facility] GARY - 6 6 [facility] H[facility] OUTPATIEN [facility] T OFFICE 98596 Yakov H[facility]TER [facility] 6 6 [facility] VISIT [facility] 15 MINUTES [facility] 6 6 [facility] - OTHER INC- [facility] 5 5 MAN[facility] - OTHER INC- OFFICE 71227 JOANNE LIN [facility] 5 5 N T B[facility] 45 NEUROLOGY MINUTES
--- OUTSIDE RECORDS SUMMARY | 2017-03-18 19:13 | External Medical Summary Rpt | CCD ---
Demographics Preferred Language Mongolian Marital Status Unknown Judaism Affiliation Unknown Race Unknown Ethnic Group Unknown Author Author , VIRGINIA COLEMAN Address Unknown Phone Immunization Unable to retrieve immunization data due to connection failure with Immunization Registry. Please try again later.
--- OUTSIDE RECORDS SUMMARY | 2017-03-18 19:13 | External Medical Summary Rpt | CCD ---
Demographics Preferred Language Maori Marital Status Unknown Hoahaoism Affiliation Unknown Race Unknown Ethnic Group Unknown Author Author , VIRGINIA COLEMAN Address Unknown Phone Immunization Unable to retrieve immunization data due to connection failure with Immunization Registry. Please try again later.
--- OUTSIDE RECORDS SUMMARY | 2017-03-18 19:15 | External Medical Summary Rpt ---
Author Author VIRGINIA Fernández, [employer] [employer] Organization [facility] Address Unknown Phone Unavailable Results Basic metabolic panel in Blood Observa Value Referen Units Interpr Notes Date tion ce etation Range Urea 7 - 18 mg/dL High No Sep 15 nitrogen informati 2017 6:45 [Mass/vol on in AM ume] in source Serum or data Plasma Calcium 8.5 - mg/dL Normal No Sep 15 [Mass/vol 10.1 informati 2017 6:45 ume] in on in AM Serum or source Plasma data Chloride 98 - 107 mmoL/L Normal No Sep 15 [Moles/vo informati 2017 6:45 lume] in on in AM Serum or source Plasma data Carbon 21.0 - mmoL/L Normal No Sep 15 dioxide, 32.0 informati 2017 6:45 total on in AM [Moles/vo source lume] in data Serum or Plasma Creatinin 0.55 - mg/dL High No Sep 15 e 1.02 informati 2017 6:45 [Mass/vol on in AM ume] in source Serum or data Plasma Creatinin 50 - 200 ML/MIN Low No Sep 15 e renal informati 2017 6:45 clearance on in AM source predicted data by Cockcroft -Gault formula Estimated 59- ML/MIN Low REFERENCE Sep 15 RANGE: 2017 6:45 glomerula >60 AM r ML/MIN/1. filtratio 73 SQUARE n rate METERSIf (GF this patient is -A merican, then multiply theresult by 1.210. Glucose 74 - 106 mg/dL Normal No Sep 15 [Mass/vol informati 2017 6:45 ume] in on in AM Serum or source Plasma data Potassium 3.5 - 5.1 mmoL/L Normal No Sep 15 informati 2017 6:45 [Moles/vo on in AM lume] in source Serum or data Plasma Sodium 136 - 145 mmoL/L Normal No Sep 15 [Moles/vo informati 2017 6:45 lume] in on in AM Serum or source Plasma data Basic metabolic panel in Blood Observa Value Referen Units Interpr Notes Date tion ce etation Range Urea 7 - 18 mg/dL High No Sep 14 nitrogen informati 2016 6:00 [Mass/vol on in AM ume] in source Serum or data Plasma Calcium 8.5 - mg/dL Normal No Sep 14 [Mass/vol 10.1 informati 2017 6:00 ume] in on in AM Serum or source Plasma data Chloride 98 - 107 mmoL/L Normal No Sep 14 [Moles/vo informati 2017 6:00 lume] in on in AM Serum or source Plasma data Carbon 21.0 - mmoL/L Normal No Sep 14 dioxide, 32.0 informati 2016 6:00 total on in AM [Moles/vo source lume] in data Serum or Plasma Creatinin 0.55 - mg/dL High No Sep 14 e 1.02 informati 2016 6:00 [Mass/vol on in AM ume] in source Serum or data Plasma Creatinin 50 - 200 ML/MIN Low No Sep 14 e renal informati 2016 6:00 clearance on in AM source predicted data by Cockcroft -Gault formula Estimated 59- ML/MIN Low REFERENCE Sep 14 RANGE: 2017 6:00 glomerula >60 AM r ML/MIN/1. filtratio 73 SQUARE n rate METERSIf (GF this patient is -A merican, then multiply theresult by 1.210. Glucose 74 - 106 mg/dL Normal No Sep 14 [Mass/vol informati 2016 6:00 ume] in on in AM Serum or source Plasma data Potassium 3.5 - 5.1 mmoL/L Normal No Sep 14 informati 2016 6:00 [Moles/vo on in AM lume] in source Serum or data Plasma Sodium 136 - 145 mmoL/L Normal No Sep 14 [Moles/vo informati 2016 6:00 lume] in on in AM Serum or source Plasma data CBC W Auto Differential panel in Blood Observa Value Referen Units Interpr Notes Date tion ce etation Range Basophils 0 - 0.2 K/MM3 Normal No Sep 14 informati 2016 6:00 [#/volume on in AM ] in source Blood by data Automated count Basophils 0.1 - 2.0 % Normal No Sep 14 /100 informati 2016 6:00 leukocyte on in AM s in source Blood by data Automated count Eosinophi 0.0 - 0.4 K/mm3 Normal No Sep 14 ls informati 2017 6:00 [#/volume on in AM ] in source Blood by data Automated count Eosinophi 0.1 - % Normal No Sep 14 ls/100 12.0 informati 2016 6:00 leukocyte on in AM s in source Blood by data Automated count Granulocy 1.8 - 7.8 K/mm3 Normal No Sep 14 olya informati 2016 6:00 [#/volume on in AM ] in source Blood by data Automated count Granulocy 37.0 - % Normal No Sep 14 olya/100 80.0 informati 2017 6:00 leukocyte on in AM s in source Blood by data Automated count Hematocri 37.0 - % Low No Sep 14 t [Volume 47.0 informati 2016 6:00 on in AM Fraction] source of Blood data Hemoglobi 12.2 - g/dL Low No Sep 14 n 16.2 informati 2016 6:00 [Mass/vol on in AM ume] in source Blood data Lymphocyt 0.7 - 4.5 K/mm3 Normal No Sep 14 es informati 2017 6:00 [#/volume on in AM ] in source Unspecifi data ed specimen by Automated count Lymphocyt 10 - 50.0 % Normal No Sep 14 es informati 2016 6:00 [#/volume on in AM ] in source Unspecifi data ed specimen by Automated count Erythrocy 27 - 31.2 pg Normal No Sep 14 te mean informati 2016 6:00 corpuscul on in AM ar source hemoglobi data n [Entitic mass] Erythrocy 31.8 - g/dl Normal No Sep 14 te mean 35.4 informati 2016 6:00 corpuscul on in AM ar source hemoglobi data n concentra tion [Mass/vol ume] by Automated count Erythrocy 82.2 - fl Normal No Sep 14 te mean 97.8 informati 2016 6:00 corpuscul on in AM ar volume source [Entitic data volume] by Automated count Monocytes 0.1 - 1.0 K/mm3 Normal No Sep 14 informati 2016 6:00 [#/volume on in AM ] in source Blood by data Automated count Monocytes 1.7 - 9.3 % Normal No Sep 14 /100 informati 2016 6:00 leukocyte on in AM s in source Blood by data Automated count Platelet 7.4 - fl Normal No Sep 14 mean 10.4 informati 2017 6:00 volume on in AM [Entitic source volume] data in Blood by Automated count Platelets 142 - 424 K/mm3 No No Sep 14 informati informati 2017 6:00 [#/volume on in on in AM ] in source source Blood data data Erythrocy 4.2 - 5.4 M/mm3 Low No Sep 14 olya informati 2016 6:00 [#/volume on in AM ] in source Amniotic data fluid Erythrocy 11.5 - % Normal No Sep 14 te 17.5 informati 2016 6:00 distribut on in AM ion width source [Entitic data volume] by Automated count Leukocyte 4.8 - K/MM3 No No Sep 14 s 10.8 informati informati 2017 6:00 [#/volume on in on in AM ] in source source Blood data data Lipid 1996 panel in Serum or Plasma Observa Value Referen Units Interpr Notes Date tion ce etation Range COMMENTS TO PERFUMER: PER ID PROTOCOL Cholester < 200 mg/dL No No Sep 13 ol informati informati 2016 5:45 [Moles/vo on in on in AM lume] in source source Unspecifi data data ed specimen Cholester 40 - 60 MG/DL Normal No Sep 13 ol in HDL informati 2017 5:45 on in AM [Mass/vol source ume] in data Serum or Plasma Cholester 0 - 130 mg/dL Normal No Sep 13 ol in LDL informati 2016 5:45 on in AM [Mass/vol source ume] in data Serum or Plasma by calculati on Triglycer 30 - 200 mg/dL Normal No Sep 13 berenice informati 2016 5:45 [Moles/vo on in AM lume] in source Serum or data Plasma Cholester 0 - 40 No Normal No Sep 13 ol in informati informati 2017 5:45 VLDL on in on in AM [Mass/vol source source ume] in data data Serum or Plasma Basic metabolic panel in Blood Observa Value Referen Units Interpr Notes Date tion ce etation Range Urea 7 - 18 mg/dL High No Sep 13 nitrogen informati 2016 5:45 [Mass/vol on in AM ume] in source Serum or data Plasma Calcium 8.5 - mg/dL Normal No Sep 13 [Mass/vol 10.1 informati 2016 5:45 ume] in on in AM Serum or source Plasma data Chloride 98 - 107 mmoL/L Normal No Sep 13 [Moles/vo informati 2016 5:45 lume] in on in AM Serum or source Plasma data Carbon 21.0 - mmoL/L Normal No Sep 13 dioxide, 32.0 informati 2016 5:45 total on in AM [Moles/vo source lume] in data Serum or Plasma Creatinin 0.55 - mg/dL Normal No Sep 13 e 1.02 informati 2016 5:45 [Mass/vol on in AM ume] in source Serum or data Plasma Creatinin 50 - 200 ML/MIN Low No Sep 13 e renal informati 2016 5:45 clearance on in AM source predicted data by Cockcroft -Gault formula Estimated 59- ML/MIN Low REFERENCE Sep 13 RANGE: 2016 5:45 glomerula >60 AM r ML/MIN/1. filtratio 73 SQUARE n rate METERSIf (GF this patient is -A merican, then multiply theresult by 1.210. Glucose 74 - 106 mg/dL Normal No Sep 13 [Mass/vol informati 2016 5:45 ume] in on in AM Serum or source Plasma data Potassium 3.5 - 5.1 mmoL/L Normal No Sep 13 informati 2016 5:45 [Moles/vo on in AM lume] in source Serum or data Plasma Sodium 136 - 145 mmoL/L Normal No Sep 13 [Moles/vo informati 2016 5:45 lume] in on in AM Serum or source Plasma data Activated clotting time in Blood by Coagulation assay Observa Value Referen Units Interpr Notes Date tion ce etation Range Activated 74 - 125 SEC High No Sep 12 clotting alert inform2016 time in on in 12:11 PM Blood by source Coagulati data on assay Cardiac enzymes Observa Value Referen Units Interpr Notes Date tion ce etation Range Creatine 0 - 4.0 U/L High No Sep 12 kinase.MB alert informati 2016 6:22 /Creatine on in AM source kinase.to data sergio [Ratio] in Serum or Plasma Creatine 0.0 - 3.6 ng/mL High Feb 15 kinase.MB alert 2016 6:22 CRITICAL AM [Mass/vol RESULTS ume] in Serum or RESU Plasma LTS CALLED TO: TONYA.CAV 02/15/17 0850 MusaMitchel diaz vikash Creatine 26 - 192 U/L Normal No Sep 12 kinase informati 2017 6:22 [Enzymati on in AM c source activity/ data volume] in Serum or Plasma Troponin 0.00 - ng/mL High Sep 12 I.cardiac 0.06 2016 6:22 CRITICAL AM [Mass/vol RESULTS ume] in Serum or RESU Plasma LTS CALLED TO: CAV 02/15/17 0850 MusaMitchel vikash> 0.5 IS CONSISTEN T WITH MYOCARDIA L ISCHEMIA OR INFARCTIO N Natriutietic peptide B [Mass/volume] in Serum or Plasma Observa Value Referen Units Interpr Notes Date tion ce etation Range Natriutie 0 - 100 pg/mL High No Sep 12 tic informati 2016 6:22 peptide B on in AM source [Mass/vol data ume] in Serum or Plasma Basic metabolic panel in Blood Observa Value Referen Units Interpr Notes Date tion ce etation Range Urea 7 - 18 mg/dL No No Sep 12 nitrogen informati informati 2017 6:22 [Mass/vol on in on in AM ume] in source source Serum or data data Plasma Calcium 8.5 - mg/dL Normal No Sep 12 [Mass/vol 10.1 informati 2017 6:22 ume] in on in AM Serum or source Plasma data Chloride 98 - 107 mmoL/L Normal No Sep 12 [Moles/vo informati 2017 6:22 lume] in on in AM Serum or source Plasma data Carbon 21.0 - mmoL/L Normal No Sep 12 dioxide, 32.0 informati 2017 6:22 total on in AM [Moles/vo source lume] in data Serum or Plasma Creatinin 0.55 - mg/dL Normal No Sep 12 e 1.02 informati 2017 6:22 [Mass/vol on in AM ume] in source Serum or data Plasma Creatinin 50 - 200 ML/MIN Low No Sep 12 e renal informati 2017 6:22 clearance on in AM source predicted data by Cockcroft -Gault formula Estimated 59- ML/MIN Low REFERENCE Sep 12 RANGE: 2016 6:22 glomerula >60 AM r ML/MIN/1. filtratio 73 SQUARE n rate METERSIf (GF this patient is -A merican, then multiply theresult by 1.210. Glucose 74 - 106 mg/dL High No Sep 12 [Mass/vol informati 2017 6:22 ume] in on in AM Serum or source Plasma data Potassium 3.5 - 5.1 mmoL/L Normal No Sep 12 informati 2017 6:22 [Moles/vo on in AM lume] in source Serum or data Plasma Sodium 136 - 145 mmoL/L Normal No Sep 12 [Moles/vo informati 2017 6:22 lume] in on in AM Serum or source Plasma data CBC W Auto Differential panel in Blood Observa Value Referen Units Interpr Notes Date tion ce etation Range Basophils 0 - 0.2 K/MM3 Normal No Sep 12 informati 2017 6:22 [#/volume on in AM ] in source Blood by data Automated count Basophils 0.1 - 2.0 % Normal No Sep 12 /100 informati 2017 6:22 leukocyte on in AM s in source Blood by data Automated count Eosinophi 0.0 - 0.4 K/mm3 Normal No Sep 12 ls informati 2017 6:22 [#/volume on in AM ] in source Blood by data Automated count Eosinophi 0.1 - % Normal No Sep 12 ls/100 12.0 informati 2017 6:22 leukocyte on in AM s in source Blood by data Automated count Granulocy 1.8 - 7.8 K/mm3 High No Sep 12 olya informati 2017 6:22 [#/volume on in AM ] in source Blood by data Automated count Granulocy 37.0 - % High No Sep 12 olya/100 80.0 informati 2017 6:22 leukocyte on in AM s in source Blood by data Automated count Hematocri 37.0 - % Normal No Sep 12 t [Volume 47.0 informati 2017 6:22 on in AM Fraction] source of Blood data Hemoglobi 12.2 - g/dL Normal No Sep 12 n 16.2 informati 2017 6:22 [Mass/vol on in AM ume] in source Blood data Lymphocyt 0.7 - 4.5 K/mm3 Normal No Sep 12 es informati 2017 6:22 [#/volume on in AM ] in source Unspecifi data ed specimen by Automated count Lymphocyt 10 - 50.0 % Low No Sep 12 es informati 2017 6:22 [#/volume on in AM ] in source Unspecifi data ed specimen by Automated count Erythrocy 27 - 31.2 pg Normal No Sep 12 te mean informati 2017 6:22 corpuscul on in AM ar source hemoglobi data n [Entitic mass] Erythrocy 31.8 - g/dl Low No Sep 12 te mean 35.4 informati 2017 6:22 corpuscul on in AM ar source hemoglobi data n concentra tion [Mass/vol ume] by Automated count Erythrocy 82.2 - fl Normal No Sep 12 te mean 97.8 informati 2017 6:22 corpuscul on in AM ar volume source [Entitic data volume] by Automated count Monocytes 0.1 - 1.0 K/mm3 Normal No Sep 12 informati 2017 6:22 [#/volume on in AM ] in source Blood by data Automated count Monocytes 1.7 - 9.3 % Normal No Sep 12 /100 informati 2017 6:22 leukocyte on in AM s in source Blood by data Automated count Platelet 7.4 - fl Normal No Sep 12 mean 10.4 informati 2017 6:22 volume on in AM [Entitic source volume] data in Blood by Automated count Platelets 142 - 424 K/mm3 Normal No Sep 12 informati 2017 6:22 [#/volume on in AM ] in source Blood data Erythrocy 4.2 - 5.4 M/mm3 Normal No Sep 12 olya informati 2017 6:22 [#/volume on in AM ] in source Amniotic data fluid Erythrocy 11.5 - % Normal No Sep 12 te 17.5 informati 2017 6:22 distribut on in AM ion width source [Entitic data volume] by Automated count Leukocyte 4.8 - K/MM3 High No Sep 12 s 10.8 informati 2017 6:22 [#/volume on in AM ] in source Blood data CBC W Auto Differential panel in Blood Observa Value Referen Units Interpr Notes Date tion ce etation Range Basophils 0 - 0.2 K/MM3 Normal No Sep 11 informati 2017 6:30 [#/volume on in PM ] in source Blood by data Automated count Basophils 0.1 - 2.0 % Normal No Sep 11 /100 informati 2016 6:30 leukocyte on in PM s in source Blood by data Automated count Eosinophi 0.0 - 0.4 K/mm3 Normal No Sep 11 ls informati 2017 6:30 [#/volume on in PM ] in source Blood by data Automated count Eosinophi 0.1 - % Normal No Sep 11 ls/100 12.0 informati 2017 6:30 leukocyte on in PM s in source Blood by data Automated count Granulocy 1.8 - 7.8 K/mm3 High No Sep 11 olya informati 2017 6:30 [#/volume on in PM ] in source Blood by data Automated count Granulocy 37.0 - % High No Sep 11 olya/100 80.0 informati 2017 6:30 leukocyte on in PM s in source Blood by data Automated count Hematocri 37.0 - % Low No Sep 11 t [Volume 47.0 informati 2017 6:30 on in PM Fraction] source of Blood data Hemoglobi 12.2 - g/dL Low No Sep 11 n 16.2 informati 2017 6:30 [Mass/vol on in PM ume] in source Blood data Lymphocyt 0.7 - 4.5 K/mm3 Normal No Sep 11 es informati 2017 6:30 [#/volume on in PM ] in source Unspecifi data ed specimen by Automated count Lymphocyt 10 - 50.0 % Normal No Sep 11 es informati 2017 6:30 [#/volume on in PM ] in source Unspecifi data ed specimen by Automated count Erythrocy 27 - 31.2 pg Normal No Sep 11 te mean informati 2017 6:30 corpuscul on in PM ar source hemoglobi data n [Entitic mass] Erythrocy 31.8 - g/dl Normal No Sep 11 te mean 35.4 informati 2016 6:30 corpuscul on in PM ar source hemoglobi data n concentra tion [Mass/vol ume] by Automated count Erythrocy 82.2 - fl Normal No Sep 11 te mean 97.8 informati 2017 6:30 corpuscul on in PM ar volume source [Entitic data volume] by Automated count Monocytes 0.1 - 1.0 K/mm3 Normal No Sep 11 informati 2017 6:30 [#/volume on in PM ] in source Blood by data Automated count Monocytes 1.7 - 9.3 % Normal No Sep 11 /100 informati 2016 6:30 leukocyte on in PM s in source Blood by data Automated count Platelet 7.4 - fl Normal No Sep 11 mean 10.4 informati 2016 6:30 volume on in PM [Entitic source volume] data in Blood by Automated count Platelets 142 - 424 K/mm3 Normal No Sep 11 informati 2017 6:30 [#/volume on in PM ] in source Blood data Erythrocy 4.2 - 5.4 M/mm3 Low No Sep 11 olya informati 2016 6:30 [#/volume on in PM ] in source Amniotic data fluid Erythrocy 11.5 - % Normal No Sep 11 te 17.5 informati 2016 6:30 distribut on in PM ion width source [Entitic data volume] by Automated count Leukocyte 4.8 - K/MM3 Normal No Sep 11 s 10.8 informati 2016 6:30 [#/volume on in PM ] in source Blood data Cardiac enzymes Observa Value Referen Units Interpr Notes Date tion ce etation Range Creatine 0 - 4.0 U/L High No Sep 11 kinase.MB alert informati 2017 5:30 /Creatine on in PM source kinase.to data sergio [Ratio] in Serum or Plasma Creatine 0.0 - 3.6 ng/mL High No Sep 11 kinase.MB informati 2017 5:30 on in PM [Mass/vol source ume] in data Serum or Plasma Creatine 26 - 192 U/L Normal No Sep 11 kinase informati 2017 5:30 [Enzymati on in PM c source activity/ data volume] in Serum or Plasma Troponin 0.00 - ng/mL High Sep 11 I.cardiac 0.06 2016 5:30 CRITICAL PM [Mass/vol RESULTS ume] in Serum or RESU Plasma LTS CALLED TO: CLA 02/14/17 1812 [place],[facility] nda> 0.5 IS CONSISTEN T WITH MYOCARDIA L ISCHEMIA OR INFARCTIO N Lipase [Enzymatic activity/volume] in Serum or Plasma Observa Value Referen Units Interpr Notes Date tion ce etation Range Lipase 73 - 393 U/L Normal No Sep 11 [Enzymati informati 2017 5:30 c on in PM activity/ source volume] data in Serum or Plasma Comprehensive metabolic 2000 panel in Serum or Plasma Observa Value Referen Units Interpr Notes Date tion ce etation Range Albumin/G 1.1 - 1.8 No Normal No Sep 11 lobulin informati informati 2017 5:30 [Mass on in on in PM ratio] in source source Serum or data data Plasma Albumin 3.4 - 5.0 gm/dL Normal No Sep 11 [Mass/vol informati 2017 5:30 ume] in on in PM Serum or source Plasma data Alkaline 46 - 116 U/L Normal No Sep 11 phosphata informati 2017 5:30 se on in PM [Enzymati source c data activity/ volume] in Serum or Plasma Bilirubin 0.2 - 1.0 mg/dL Normal No Sep 11 .total informati 2017 5:30 [Mass/vol on in PM ume] in source Serum or data Plasma Urea 7 - 18 mg/dL Normal No Sep 11 nitrogen informati 2017 5:30 [Mass/vol on in PM ume] in source Serum or data Plasma Calcium 8.5 - mg/dL Normal No Sep 11 [Mass/vol 10.1 informati 2016 5:30 ume] in on in PM Serum or source Plasma data Chloride 98 - 107 mmoL/L Normal No Sep 11 [Moles/vo informati 2016 5:30 lume] in on in PM Serum or source Plasma data Carbon 21.0 - mmoL/L Normal No Sep 11 dioxide, 32.0 informati 2017 5:30 total on in PM [Moles/vo source lume] in data Serum or Plasma Creatinin 0.55 - mg/dL Normal No Sep 11 e 1.02 informati 2017 5:30 [Mass/vol on in PM ume] in source Serum or data Plasma Creatinin 50 - 200 ML/MIN Low No Sep 11 e renal informati 2016 5:30 clearance on in PM source predicted data by Cockcroft -Gault formula Estimated 59- ML/MIN Low REFERENCE Sep 11 RANGE: 2016 5:30 glomerula >60 PM r ML/MIN/1. filtratio 73 SQUARE n rate METERSIf (GF this patient is -A merican, then multiply theresult by 1.210. Globulin 1.3 - 3.2 gm/dL High No Sep 11 [Mass/vol informati 2017 5:30 ume] in on in PM Serum source data Glucose 74 - 106 mg/dL High No Sep 11 [Mass/vol informati 2017 5:30 ume] in on in PM Serum or source Plasma data Potassium 3.5 - 5.1 mmoL/L Normal No Sep 11 informati 2017 5:30 [Moles/vo on in PM lume] in source Serum or data Plasma Sodium 136 - 145 mmoL/L Normal No Sep 11 [Moles/vo informati 2017 5:30 lume] in on in PM Serum or source Plasma data Aspartate 15 - 37 U/L Low No Sep 11 informati 2017 5:30 aminotran on in PM sferase source [Enzymati data c activity/ volume] in Serum or Plasma Alanine 12 - 78 U/L Low No Sep 11 aminotran informati 2017 5:30 sferase on in PM [Enzymati source c data activity/ volume] in Serum or Plasma Protein 6.4 - 8.2 gm/dL Normal No Sep 11 [Mass/vol informati 2017 5:30 ume] in on in PM Serum or source Plasma data Urinalysis dipstick W Reflex Microscopic panel in Urine Observa Value Referen Units Interpr Notes Date tion ce etation Range Appeara CLEAR CLEAR No No No Sep 11 nce of informa informa informa 2017 Urine tion in tion in tion in 5:00 PM source source source data data data Bacteri 2+ O No No No Sep 11 a informa informa informa 2017 [Presen tion in tion in tion in 5:00 PM ce] in source source source Urine data data data sedimen t by Light microsc opy Bilirub NEGATIV NEG No No No Sep 11 in E informa informa informa 2016 [Presen tion in tion in tion in 5:00 PM ce] in source source source Urine data data data by Test strip Erythro NEGATIV NEG No No No Sep 11 cytes E informa informa informa 2017 [Presen tion in tion in tion in 5:00 PM ce] in source source source Urine data data data Color YELLOW YELLOW No No No Sep 11 of informa informa informa 2017 Urine tion in tion in tion in 5:00 PM source source source data data data Glucose NEG No No No Sep 11 [Mass/vol informati informati informati 2017 5:00 ume] in on in on in on in PM Urine by source source source Test data data data strip Hyaline 10-20 NONE #/lpf No No Sep 11 casts informa informa 2017 [Presen tion in tion in 5:00 PM ce] in source source Urine data data sedimen t by Light microsc opy Ketones NEGATIV NEG mg/dL No No Sep 11 E informa informa 2017 [Presen tion in tion in 5:00 PM ce] in source source Urine data data by Automat ed test strip Mucus NEGATIV NEG No No No Sep 11 [Presen E informa informa informa 2016 ce] in tion in tion in tion in 5:00 PM Urine source source source sedimen data data data t by Light microsc opy Nitrite NEGATIV NEG No No No Sep 11 E informa informa informa 2017 [Presen tion in tion in tion in 5:00 PM ce] in source source source Urine data data data by Test strip pH of 5.0 - 8.5 No Normal No Sep 11 Urine informati informati 2017 5:00 on in on in PM source source data data Protein NEG mg/dL No No Sep 11 [Mass/vol informati informati 2017 5:00 ume] in on in on in PM Urine by source source Automated data data test strip Erythro OCC 0 rbc/hpf No No Sep 11 cytes informa informa 2017 [Presen tion in tion in 5:00 PM ce] in source source Urine data data sedimen t by Light microsc opy Specific 1.005 - No Normal No Sep 11 gravity 1.030 informati informati 2017 5:00 of Urine on in on in PM source source data data Epithel 20-50 0 - 5 #/hpf No No Sep 11 ial informa informa 2017 cells.s tion in tion in 5:00 PM quamous source source data data [Presen ce] in Urine sedimen t by Microsc opy high power field Urobili 0.2 NEG E.U./dL No No Sep 11 nogen informa informa 2017 [Presen tion in tion in 5:00 PM ce] in source source Urine data data by Test strip Leukocyte O wbc/hpf No No Sep 11 s informati informati 2017 5:00 [#/volume on in on in PM ] in source source Urine data data Urinalysis dipstick W Reflex Microscopic panel in Urine Observa Value Referen Units Interpr Notes Date tion ce etation Range Appeara CLEAR CLEAR No No No Sep 11 nce of informa informa informa 2017 Urine tion in tion in tion in 5:00 PM source source source data data data Bilirub NEGATIV NEG No No No Sep 11 in E informa informa informa 2017 [Presen tion in tion in tion in 5:00 PM ce] in source source source Urine data data data by Test strip Erythro NEGATIV NEG No No No Sep 11 cytes E informa informa informa 2017 [Presen tion in tion in tion in 5:00 PM ce] in source source source Urine data data data Color YELLOW YELLOW No No No Sep 11 of informa informa informa 2017 Urine tion in tion in tion in 5:00 PM source source source data data data Glucose NEG No No No Sep 11 [Mass/vol informati informati informati 2017 5:00 ume] in on in on in on in PM Urine by source source source Test data data data strip Ketones NEGATIV NEG mg/dL No No Sep 11 E informa informa 2016 [Presen tion in tion in 5:00 PM ce] in source source Urine data data by Automat ed test strip Mucus NEGATIV NEG No No No Sep 11 [Presen E informa informa informa 2016 ce] in tion in tion in tion in 5:00 PM Urine source source source sedimen data data data t by Light microsc opy Nitrite NEGATIV NEG No No No Sep 11 E informa informa informa 2016 [Presen tion in tion in tion in 5:00 PM ce] in source source source Urine data data data by Test strip pH of 5.0 - 8.5 No Normal No Sep 11 Urine informati informati 2017 5:00 on in on in PM source source data data Protein NEG mg/dL No No Sep 11 [Mass/vol informati informati 2017 5:00 ume] in on in on in PM Urine by source source Automated data data test strip Specific 1.005 - No Normal No Sep 11 gravity 1.030 informati informati 2017 5:00 of Urine on in on in PM source source data data Urobili 0.2 NEG E.U./dL No No Sep 11 nogen informa informa 2017 [Presen tion in tion in 5:00 PM ce] in source source Urine data data by Test strip CBC W Auto Differential panel in Blood Observa Value Referen Units Interpr Notes Date tion ce etation Range Basophils 0 - 0.2 K/MM3 Normal No Jan 23 inform2016 [#/volume on in 11:00 AM ] in source Blood by data Automated count Basophils 0.1 - 2.0 % Normal No Jan 23 /100 inform2016 leukocyte on in 11:00 AM s in source Blood by data Automated count Eosinophi 0.0 - 0.4 K/mm3 Normal No Jan 23 ls informati 2016 [#/volume on in 11:00 AM ] in source Blood by data Automated count Eosinophi 0.1 - % Normal No Jan 23 ls/100 12.0 informati 2016 leukocyte on in 11:00 AM s in source Blood by data Automated count Granulocy 1.8 - 7.8 K/mm3 Normal No Jan 23 olya inform2016 [#/volume on in 11:00 AM ] in source Blood by data Automated count Granulocy 37.0 - % Normal No Jan 23 olya/100 80.0 inform2016 leukocyte on in 11:00 AM s in source Blood by data Automated count Hematocri 37.0 - % Low No Jan 23 t [Volume 47.0 ati 2016 on in 11:00 AM Fraction] source of Blood data Hemoglobi 12.2 - g/dL Low No Jan 23 n 16.2 informati 2016 [Mass/vol on in 11:00 AM ume] in source Blood data Lymphocyt 0.7 - 4.5 K/mm3 Normal No Jan 23 es informati 2016 [#/volume on in 11:00 AM ] in source Unspecifi data ed specimen by Automated count Lymphocyt 10 - 50.0 % Normal No Jan 23 es informati 2016 [#/volume on in 11:00 AM ] in source Unspecifi data ed specimen by Automated count Erythrocy 27 - 31.2 pg Normal No Jan 23 te mean inform2016 corpuscul on in 11:00 AM ar source hemoglobi data n [Entitic mass] Erythrocy 31.8 - g/dl Normal No Jan 23 te mean 35.4 informati 2016 corpuscul on in 11:00 AM ar source hemoglobi data n concentra tion [Mass/vol ume] by Automated count Erythrocy 82.2 - fl Normal No Jan 23 te mean 97.8 informati 2016 corpuscul on in 11:00 AM ar volume source [Entitic data volume] by Automated count Monocytes 0.1 - 1.0 K/mm3 Normal No Jan 23 informati 2016 [#/volume on in 11:00 AM ] in source Blood by data Automated count Monocytes 1.7 - 9.3 % Normal No Jan 23 /100 informati 2016 leukocyte on in 11:00 AM s in source Blood by data Automated count Platelet 7.4 - fl Normal No Jan 23 mean 10.4 ati 2016 volume on in 11:00 AM [Entitic source volume] data in Blood by Automated count Platelets 142 - 424 K/mm3 Normal No Jan 23 informati 2016 [#/volume on in 11:00 AM ] in source Blood data Erythrocy 4.2 - 5.4 M/mm3 Low No Jan 23 olya informati 2016 [#/volume on in 11:00 AM ] in source Amniotic data fluid Erythrocy 11.5 - % Normal Jan 23 te 17.5 informati 2016 distribut on in 11:00 AM ion width source [Entitic data volume] by Automated count Leukocyte 4.8 - K/MM3 Normal No Jan 23 s 10.8 ati 2016 [#/volume on in 11:00 AM ] in source Blood data Basic metabolic panel in Blood Observa Value Referen Units Interpr Notes Date tion ce etation Range Urea 7 - 18 mg/dL Normal No Dec 23 nitrogen informati 2016 6:30 [Mass/vol on in AM ume] in source Serum or data Plasma Calcium 8.5 - mg/dL Normal No Dec 23 [Mass/vol 10.1 informati 2016 6:30 ume] in on in AM Serum or source Plasma data Chloride 98 - 107 mmoL/L High No Dec 23 [Moles/vo informati 2016 6:30 lume] in on in AM Serum or source Plasma data Carbon 21.0 - mmoL/L Normal No Dec 23 dioxide, 32.0 informati 2016 6:30 total on in AM [Moles/vo source lume] in data Serum or Plasma Creatinin 0.55 - mg/dL High No Dec 23 e 1.02 informati 2016 6:30 [Mass/vol on in AM ume] in source Serum or data Plasma Creatinin 50 - 200 ML/MIN Low No Dec 23 e renal informati 2016 6:30 clearance on in AM source predicted data by Cockcroft -Gault formula Estimated 59- ML/MIN Low REFERENCE Dec 23 RANGE: 2017 6:30 glomerula >60 AM r ML/MIN/1. filtratio 73 SQUARE n rate METERSIf (GF this patient is -A merican, then multiply theresult by 1.210. Glucose 74 - 106 mg/dL Normal No Dec 23 [Mass/vol informati 2016 6:30 ume] in on in AM Serum or source Plasma data Potassium 3.5 - 5.1 mmoL/L Normal No Dec 23 informati 2016 6:30 [Moles/vo on in AM lume] in source Serum or data Plasma Sodium 136 - 145 mmoL/L Normal No Dec 23 [Moles/vo informati 2016 6:30 lume] in on in AM Serum or source Plasma data Natriutietic peptide B [Mass/volume] in Serum or Plasma Observa Value Referen Units Interpr Notes Date tion ce etation Range Natriutie 0 - 100 pg/mL High No Dec 23 tic informati 2016 6:30 peptide B on in AM source [Mass/vol data ume] in Serum or Plasma Cardiac enzymes Observa Value Referen Units Interpr Notes Date tion ce etation Range Creatine 0 - 4.0 U/L No No Dec 22 kinase.MB informati informati 2016 6:20 /Creatine on in on in AM source source kinase.to data data sergio [Ratio] in Serum or Plasma Creatine 0.0 - 3.6 ng/mL No No Dec 22 kinase.MB informati informati 2016 6:20 on in on in AM [Mass/vol source source ume] in data data Serum or Plasma Creatine 26 - 192 U/L Normal No Dec 22 kinase informati 2017 6:20 [Enzymati on in AM c source activity/ data volume] in Serum or Plasma Troponin 0.00 - ng/mL High Dec 22 I.cardiac 0.06 2016 6:20 CRITICAL AM [Mass/vol RESULTS ume] in Serum or RESU Plasma LTS CALLED TO: [facility] 12/22/16 0717 Vicente Com[place] e> 0.5 IS CONSISTEN T WITH MYOCARDIA L ISCHEMIA OR INFARCTIO N CBC W Auto Differential panel in Blood Observa Value Referen Units Interpr Notes Date tion ce etation Range Basophils 0 - 0.2 K/MM3 Normal No Dec 22 informati 2016 6:20 [#/volume on in AM ] in source Blood by data Automated count Basophils 0.1 - 2.0 % Normal No Dec 22 /100 informati 2016 6:20 leukocyte on in AM s in source Blood by data Automated count Eosinophi 0.0 - 0.4 K/mm3 Normal No Dec 22 ls informati 2016 6:20 [#/volume on in AM ] in source Blood by data Automated count Eosinophi 0.1 - % Normal No Dec 22 ls/100 12.0 informati 2016 6:20 leukocyte on in AM s in source Blood by data Automated count Granulocy 1.8 - 7.8 K/mm3 Normal No Dec 22 olya informati 2016 6:20 [#/volume on in AM ] in source Blood by data Automated count Granulocy 37.0 - % Normal No Dec 22 olya/100 80.0 informati 2016 6:20 leukocyte on in AM s in source Blood by data Automated count Hematocri 37.0 - % Normal No Dec 22 t [Volume 47.0 informati 2016 6:20 on in AM Fraction] source of Blood data Hemoglobi 12.2 - g/dL Normal No Dec 22 n 16.2 informati 2016 6:20 [Mass/vol on in AM ume] in source Blood data Lymphocyt 0.7 - 4.5 K/mm3 Normal No Dec 22 es informati 2016 6:20 [#/volume on in AM ] in source Unspecifi data ed specimen by Automated count Lymphocyt 10 - 50.0 % Normal No Dec 22 es informati 2016 6:20 [#/volume on in AM ] in source Unspecifi data ed specimen by Automated count Erythrocy 27 - 31.2 pg Normal No Dec 22 te mean informati 2016 6:20 corpuscul on in AM ar source hemoglobi data n [Entitic mass] Erythrocy 31.8 - g/dl Normal No Dec 22 te mean 35.4 informati 2016 6:20 corpuscul on in AM ar source hemoglobi data n concentra tion [Mass/vol ume] by Automated count Erythrocy 82.2 - fl Normal No Dec 22 te mean 97.8 informati 2016 6:20 corpuscul on in AM ar volume source [Entitic data volume] by Automated count Monocytes 0.1 - 1.0 K/mm3 Normal No Dec 22 informati 2016 6:20 [#/volume on in AM ] in source Blood by data Automated count Monocytes 1.7 - 9.3 % Normal No Dec 22 informati 2016 6:20 leukocyte on in AM s in source Blood by data Automated count Platelet 7.4 - fl Normal No Dec 22 mean 10.4 informati 2016 6:20 volume on in AM [Entitic source volume] data in Blood by Automated count Platelets 142 - 424 K/mm3 Normal No Dec 22 inform2016 6:20 [#/volume on in AM ] in source Blood data Erythrocy 4.2 - 5.4 M/mm3 Normal No Dec 22 olya informati 2016 6:20 [#/volume on in AM ] in source Amniotic data fluid Erythrocy 11.5 - % Normal No Dec 22 te 17.5 informati 2016 6:20 distribut on in AM ion width source [Entitic data volume] by Automated count Leukocyte 4.8 - K/MM3 Normal No Dec 22 s 10.8 informati 2016 6:20 [#/volume on in AM ] in source Blood data CBC W Auto Differential panel in Blood Observa Value Referen Units Interpr Notes Date tion ce etation Range Basophils 0 - 0.2 K/MM3 Normal No Dec 21 informati 2016 5:00 [#/volume on in PM ] in source Blood by data Automated count Basophils 0.1 - 2.0 % Normal No Dec 21 informati 2016 5:00 leukocyte on in PM s in source Blood by data Automated count Eosinophi 0.0 - 0.4 K/mm3 Normal No Dec 21 ls informati 2016 5:00 [#/volume on in PM ] in source Blood by data Automated count Eosinophi 0.1 - % Normal No Dec 21 ls100 12.0 informati 2016 5:00 leukocyte on in PM s in source Blood by data Automated count Granulocy 1.8 - 7.8 K/mm3 Normal No Dec 21 olya informati 2016 5:00 [#/volume on in PM ] in source Blood by data Automated count Granulocy 37.0 - % Normal No Dec 21 olya/100 80.0 informati 2016 5:00 leukocyte on in PM s in source Blood by data Automated count Hematocri 37.0 - % Normal No Dec 21 t [Volume 47.0 informati 2017 5:00 on in PM Fraction] source of Blood data Hemoglobi 12.2 - g/dL Normal No Dec 21 n 16.2 informati 2016 5:00 [Mass/vol on in PM ume] in source Blood data Lymphocyt 0.7 - 4.5 K/mm3 Normal No Dec 21 es informati 2016 5:00 [#/volume on in PM ] in source Unspecifi data ed specimen by Automated count Lymphocyt 10 - 50.0 % Normal No Dec 21 es informati 2016 5:00 [#/volume on in PM ] in source Unspecifi data ed specimen by Automated count Erythrocy 27 - 31.2 pg Normal No Dec 21 te mean informati 2016 5:00 corpuscul on in PM ar source hemoglobi data n [Entitic mass] Erythrocy 31.8 - g/dl Normal No Dec 21 te mean 35.4 informati 2016 5:00 corpuscul on in PM ar source hemoglobi data n concentra tion [Mass/vol ume] by Automated count Erythrocy 82.2 - fl Normal No Dec 21 te mean 97.8 informati 2016 5:00 corpuscul on in PM ar volume source [Entitic data volume] by Automated count Monocytes 0.1 - 1.0 K/mm3 Normal No Dec 21 informati 2016 5:00 [#/volume on in PM ] in source Blood by data Automated count Monocytes 1.7 - 9.3 % Normal No Dec 18 /100 informati 2017 5:00 leukocyte on in PM s in source Blood by data Automated count Platelet 7.4 - fl Normal No Dec 21 mean 10.4 informati 2016 5:00 volume on in PM [Entitic source volume] data in Blood by Automated count Platelets 142 - 424 K/mm3 Normal No Dec 21 informati 2016 5:00 [#/volume on in PM ] in source Blood data Erythrocy 4.2 - 5.4 M/mm3 Normal No Dec 21 olya informati 2016 5:00 [#/volume on in PM ] in source Amniotic data fluid Erythrocy 11.5 - % Normal No Dec 21 te 17.5 informati 2016 5:00 distribut on in PM ion width source [Entitic data volume] by Automated count Leukocyte 4.8 - K/MM3 Normal No Dec 21 s 10.8 informati 2016 5:00 [#/volume on in PM ] in source Blood data CBC W Auto Differential panel in Blood Observa Value Referen Units Interpr Notes Date tion ce etation Range Basophils 0 - 0.2 K/MM3 Normal No Dec 20 inform2016 [#/volume on in 11:55 AM ] in source Blood by data Automated count Basophils 0.1 - 2.0 % Normal No Dec 20 / inform2016 leukocyte on in 11:55 AM s in source Blood by data Automated count Eosinophi 0.0 - 0.4 K/mm3 Normal No Dec 20 ls informati 2016 [#/volume on in 11:55 AM ] in source Blood by data Automated count Eosinophi 0.1 - % Normal No Dec 20 ls/100 12.0 informati 2016 leukocyte on in 11:55 AM s in source Blood by data Automated count Granulocy 1.8 - 7.8 K/mm3 Normal No Dec 20 olya inform2016 [#/volume on in 11:55 AM ] in source Blood by data Automated count Granulocy 37.0 - % Normal No Dec 20 olya/100 80.0 2016 leukocyte on in 11:55 AM s in source Blood by data Automated count Hematocri 37.0 - % Normal No Dec 20 t [Volume 47.0 ati 2016 on in 11:55 AM Fraction] source of Blood data Hemoglobi 12.2 - g/dL Normal No Dec 20 n 16.2 informati 2016 [Mass/vol on in 11:55 AM ume] in source Blood data Lymphocyt 0.7 - 4.5 K/mm3 Normal No Dec 20 es informati 2016 [#/volume on in 11:55 AM ] in source Unspecifi data ed specimen by Automated count Lymphocyt 10 - 50.0 % Normal No Dec 20 es informati 2016 [#/volume on in 11:55 AM ] in source Unspecifi data ed specimen by Automated count Erythrocy 27 - 31.2 pg Normal No Dec 20 te mean 2016 corpuscul on in 11:55 AM ar source hemoglobi data n [Entitic mass] Erythrocy 31.8 - g/dl Normal No Dec 20 te mean 35.4 informati 2016 corpuscul on in 11:55 AM ar source hemoglobi data n concentra tion [Mass/vol ume] by Automated count Erythrocy 82.2 - fl Normal No Dec 20 te mean 97.8 informati 2016 corpuscul on in 11:55 AM ar volume source [Entitic data volume] by Automated count Monocytes 0.1 - 1.0 K/mm3 Normal No Dec 20 informati 2016 [#/volume on in 11:55 AM ] in source Blood by data Automated count Monocytes 1.7 - 9.3 % Normal No Dec 20 /100 inform2016 leukocyte on in 11:55 AM s in source Blood by data Automated count Platelet 7.4 - fl Normal No Dec 20 mean 10.4 informati 2016 volume on in 11:55 AM [Entitic source volume] data in Blood by Automated count Platelets 142 - 424 K/mm3 Normal No Dec 20 informati 2016 [#/volume on in 11:55 AM ] in source Blood data Erythrocy 4.2 - 5.4 M/mm3 Normal No Dec 20 olya informati 2016 [#/volume on in 11:55 AM ] in source Amniotic data fluid Erythrocy 11.5 - % Normal No Dec 20 te 17.5 informati 2016 distribut on in 11:55 AM ion width source [Entitic data volume] by Automated count Leukocyte 4.8 - K/MM3 Normal No Dec 20 s 10.8 informati 2016 [#/volume on in 11:55 AM ] in source Blood data Comprehensive metabolic 2000 panel in Serum or Plasma Observa Value Referen Units Interpr Notes Date tion ce etation Range Albumin/G 1.1 - 1.8 No Low No Dec 20 lobulin informati informati 2016 [Mass on in on in 11:55 AM ratio] in source source Serum or data data Plasma Albumin 3.4 - 5.0 gm/dL Normal No Dec 20 [Mass/vol informati 2016 ume] in on in 11:55 AM Serum or source Plasma data Alkaline 46 - 116 U/L Normal No Dec 20 phosphata informati 2016 se on in 11:55 AM [Enzymati source c data activity/ volume] in Serum or Plasma Bilirubin 0.2 - 1.0 mg/dL Normal No Dec 20 .total informati 2016 [Mass/vol on in 11:55 AM ume] in source Serum or data Plasma Urea 7 - 18 mg/dL Normal No Dec 20 nitrogen informati 2016 [Mass/vol on in 11:55 AM ume] in source Serum or data Plasma Calcium 8.5 - mg/dL Normal No Dec 20 [Mass/vol 10.1 informati 2016 ume] in on in 11:55 AM Serum or source Plasma data Chloride 98 - 107 mmoL/L High No Dec 20 [Moles/vo informati 2016 lume] in on in 11:55 AM Serum or source Plasma data Carbon 21.0 - mmoL/L Normal No Dec 20 dioxide, 32.0 informati 2016 total on in 11:55 AM [Moles/vo source lume] in data Serum or Plasma Creatinin 0.55 - mg/dL High No Dec 20 e 1.02 informati 2016 [Mass/vol on in 11:55 AM ume] in source Serum or data Plasma Creatinin 50 - 200 ML/MIN Low No Dec 20 e renal inform2016 clearance on in 11:55 AM source predicted data by Cockcroft -Gault formula Estimated 59- ML/MIN Low REFERENCE Dec 20 RANGE: 2017 glomerula >60 11:55 AM r ML/MIN/1. filtratio 73 SQUARE n rate METERSIf (GF this patient is -A merican, then multiply theresult by 1.210. Globulin 1.3 - 3.2 gm/dL High No Dec 20 [Mass/vol informati 2016 ume] in on in 11:55 AM Serum source data Glucose 74 - 106 mg/dL High No Dec 20 [Mass/vol informati 2016 ume] in on in 11:55 AM Serum or source Plasma data Potassium 3.5 - 5.1 mmoL/L Normal No Dec 20 inform2016 [Moles/vo on in 11:55 AM lume] in source Serum or data Plasma Sodium 136 - 145 mmoL/L Normal No Dec 20 [Moles/vo informati 2016 lume] in on in 11:55 AM Serum or source Plasma data Aspartate 15 - 37 U/L Low No Dec 202016 aminotran on in 11:55 AM sferase source [Enzymati data c activity/ volume] in Serum or Plasma Alanine 12 - 78 U/L Low No Dec 20 aminotran inform2016 sferase on in 11:55 AM [Enzymati source c data activity/ volume] in Serum or Plasma Protein 6.4 - 8.2 gm/dL Normal No Dec 20 [Mass/vol informati 2016 ume] in on in 11:55 AM Serum or source Plasma data Urinalysis dipstick W Reflex Microscopic panel in Urine Observa Value Referen Units Interpr Notes Date tion ce etation Range Appeara Sl CLEAR No No No Dec 20 nce of Cloudy informa informa informa 2016 Urine tion in tion in tion in 11:20 source source source AM data data data Bacteri 1+ O No No No Dec 20 a informa informa informa 2016 [Presen tion in tion in tion in 11:20 ce] in source source source AM Urine data data data sedimen t by Light microsc opy Bilirub NEGATIV NEG No No No Dec 20 in E informa informa informa 2016 [Presen tion in tion in tion in 11:20 ce] in source source source AM Urine data data data by Test strip Erythro TRACE-L NEG No No No Dec 20 cytes YSED informa informa informa 2016 [Presen tion in tion in tion in 11:20 ce] in source source source AM Urine data data data Color YELLOW YELLOW No No No Dec 20 of informa informa informa 2016 Urine tion in tion in tion in 11:20 source source source AM data data data Glucose NEG No No No Dec 20 [Mass/vol informati informati informati 2017 ume] in on in on in on in 11:20 AM Urine by source source source Test data data data strip Ketones NEGATIV NEG mg/dL No No Dec 20 E informa informa 2016 [Presen tion in tion in 11:20 ce] in source source AM Urine data data by Automat ed test strip Mucus NEGATIV NEG No No No Dec 20 [Presen E informa informa informa 2016 ce] in tion in tion in tion in 11:20 Urine source source source AM sedimen data data data t by Light microsc opy Nitrite NEGATIV NEG No No No Dec 20 E informa informa informa 2016 [Presen tion in tion in tion in 11:20 ce] in source source source AM Urine data data data by Test strip pH of 5.0 - 8.5 No Normal No Dec 20 Urine informati informati 2017 on in on in 11:20 AM source source data data Protein NEG mg/dL High No Dec 20 [Mass/vol informati 2017 ume] in on in 11:20 AM Urine by source Automated data test strip Specific 1.005 - No Normal No Dec 20 gravity 1.030 informati informati 2017 of Urine on in on in 11:20 AM source source data data Epithel 20-50 0 - 5 #/hpf No No Dec 20 ial informa informa 2017 cells.s tion in tion in 11:20 quamous source source AM data data [Presen ce] in Urine sedimen t by Microsc opy high power field Urobili 1.0 NEG E.U./dL No No Dec 20 nogen informa informa 2016 [Presen tion in tion in 11:20 ce] in source source AM Urine data data by Test strip Leukocyte O wbc/hpf No No Dec 20 s informati informati 2017 [#/volume on in on in 11:20 AM ] in source source Urine data data Urinalysis dipstick W Reflex Microscopic panel in Urine Observa Value Referen Units Interpr Notes Date tion ce etation Range Appeara Sl CLEAR No No No Dec 20 nce of Cloudy informa informa informa 2017 Urine tion in tion in tion in 11:20 source source source AM data data data Bilirub NEGATIV NEG No No No Dec 20 in E informa informa informa 2016 [Presen tion in tion in tion in 11:20 ce] in source source source AM Urine data data data by Test strip Erythro TRACE-L NEG No No No Dec 20 cytes YSED informa informa informa 2016 [Presen tion in tion in tion in 11:20 ce] in source source source AM Urine data data data Color YELLOW YELLOW No No No Dec 20 of informa informa informa 2017 Urine tion in tion in tion in 11:20 source source source AM data data data Glucose NEG No No No Dec 20 [Mass/vol informati informati informati 2017 ume] in on in on in on in 11:20 AM Urine by source source source Test data data data strip Ketones NEGATIV NEG mg/dL No No Dec 20 E informa informa 2016 [Presen tion in tion in 11:20 ce] in source source AM Urine data data by Automat ed test strip Mucus NEGATIV NEG No No No Dec 20 [Presen E informa informa informa 2017 ce] in tion in tion in tion in 11:20 Urine source source source AM sedimen data data data t by Light microsc opy Nitrite NEGATIV NEG No No No Dec 20 E informa informa informa 2016 [Presen tion in tion in tion in 11:20 ce] in source source source AM Urine data data data by Test strip pH of 5.0 - 8.5 No Normal No Dec 20 Urine informati informati 2017 on in on in 11:20 AM source source data data Protein NEG mg/dL High No Dec 20 [Mass/vol informati 2017 ume] in on in 11:20 AM Urine by source Automated data test strip Specific 1.005 - No Normal No Dec 20 gravity 1.030 informati informati 2016 of Urine on in on in 11:20 AM source source data data Urobili 1.0 NEG E.U./dL No No Dec 20 nogen informa informa 2016 [Presen tion in tion in 11:20 ce] in source source AM Urine data data by Test strip
--- OUTSIDE RECORDS SUMMARY | 2017-03-18 19:15 | External Medical Summary Rpt ---
[...] Date tion ce etation Range COMMENTS TO CENTRAL LAB TECHNICIAN: PER ID PROTOCOL Cholester < 200 mg/dL [...] Plasma LTS CALLED TO: CLA 02/14/17 1812 [place] nda> 0.5 IS CONSISTEN T WITH MYOCARDIA [...] 37.0 - % Normal No Dec 20 olay/100 80.0 2016 leukocyte on in 11:55 AM [...]
--- OUTSIDE RECORDS SUMMARY | 2017-03-18 20:19 | External Medical Summary Rpt | CCD ---
Author Author , [place] Organization [place] Address Unknown Phone [email or web address] Audit Care Team Providers Care Acid Extractor Name Role Phone A Adonis SIMMONS MD [...] Unavailable Unavailable ELSA CABAN Unavailable Unavailable [facility], Unavailable Unavailable [facility] Unavailable Unavailable INC, [facility] Unavailable Unavailable [facility]PITAL P, [facility], Unavailable Unavailable [facility] MONICA ANDERSON Unavailable Unavailable [facility] Un[facility] KILPELA, KILPELA Unavailable Unavailable [...] Diagnosis DOS Provider Status I10 ESSENTIAL 02-17-[address] [facility] PRIMARY PHYSICIANS HYPERTENSIO GROUP N I214 NON-ST 02-17-[address] [facility] ELEVATION PHYSICIANS MYOCARDIAL GROUP INFARCTION I255 ISCHEMIC 02-17-[address] [facility] CARDIOMYOPA PHYSICIANS THY GROUP I5020 UNSPECIFIED 02-17-[address] [facility] SYSTOLIC PHYSICIANS CONGESTIVE GROUP HEART FAILURE E785 HYPERLIPIDE 02-15-[address] [facility] MACIEL PHYSICIANS UNSPECIFIED GROUP Q48643 ASHD MEKORYUK 02-15-[address] [facility] COR ART PHYSICIANS W/UNSTABLE GROUP ANGINA PECTORIS I6529 OCCLUSION & 02-15-[address] [facility] STENOSIS PHYSICIANS UNSPECIFIED GROUP CAROTID ARTERY N183 CHRONIC 02-15-[address] 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 R410 DISORIENTAT 02-14-2017 [facility] ION PHYSICIANS, UNSPECIFIED PLLC R7989 OTHER SPEC 02-14-2017 [facility] ABNORMAL PHYSICIANS, FINDINGS PLLC BLOOD CHEMISTRY [id number] LACERATION 02-04-2017 A Adonis SIMMONS W/O FOREIGN CUMMINGS PSC BODY LT LOW LEG SBSQT ENC [id number] UNS INJURY 02-04-2017 [facility] LEG INC SUBSEQUENT ENCOUNTER [id number] FALL FROM 02-04-2017 A Adonis SIMMONS BED PSC SUBSEQUENT ENCOUNTER Z23 ENCOUNTER 02-04-2017 A Adonis CONWAY MD PSC IMMUNIZATIO N D649 ANEMIA 01-23-2017 [facility] UNSPECIFIED PHYSICIANS, PLLC [id number] LACERATION 01-23-2017 [facility] W/O FOREIGN PHYSICIANS, BODY LT PLLC LOW LEG INIT ENC D08294 OTHER LONG 01-23-2017 [facility] CURRENT INC DRUG THERAPY E538 DEFICIENCY 01-20-2017 A Adonis SIMMONS OF JILL C[facility] PSC SPECIFIED B GROUP VITAMINS M1990 UNSPECIFIED 01-20-2017 A Adonis SIMMONS MD PSC OSTEOARTHRI TIS UNSPECIFIED SITE [id number] OTHER SPEC 01-19-2017 [facility] INJURIES LT AMBULANCE [...] G20 PARKINSONS 12-23-2016 [facility] DISEASE [facility]ANCE SERVICE J80837 ASHD MEKORYUK 12-21-2016 [facility] P ANGINA PECTORIS Z43297 ATHEROSCLER 12-21-2016 [facility] P ARTERY CABG W/UNS AP R079 CHEST PAIN 12-21-2016 [facility] R531 WEAKNESS 12-21-2016 [facility] P R5383 OTHER 12-21-2016 [facility] E039 HYPOTHYROID 12-08-2016 [facility] ISM [facility] UNSPECIFIED HOLDINGS E782 MIXED 11-17-2016 [facility] HYPERLIPIDE [facility] MACIEL HOLDINGS Z9181 HISTORY OF 08-18-2016 [facility] M542 CERVICALGIA 11-26-2015 [facility] HOLDINGS M549 DORSALGIA 11-26-2015 [facility] UNSPECIFIED [facility] HOLDINGS I2510 ASHD MEKORYUK 10-15-2015 [place] CORONARY MEDICAL ARTERY W/O IMAGING ASS ANGINA PECTORIS R0989 OTH SPEC SX 10-15-2015 [place] [facility]NS [facility] INVLV THE IMAGING ASS CIRC & RESP SYS E611 IRON 10-07-2015 [facility] INCORPORAT M545 LOW BACK 10-07-2015 A Adonis SIMMONS PAIN [facility] U79710 PAIN IN 08-06-2015 [facility] RIGHT HIP [facility] HOLDINGS R296 REPEATED 06-06-2015 [facility]- G250 ESSENTIAL 05-13-2015 [facility] NEUROLOGY Allergies, Adverse Reactions, Alerts Clinical Alert Notifications [...] -2 -2 0. D 66 SS ti OR 63 0- 8- 00 CA 58 ON ve N 79 20 20 0 RE 02 D3 [address] 1 PH EP 2, AR HE 00 MA N 0 CY A UN IT LL C SO FT GE L 00 07 07 0 18 18 ME 14 BE Ac TA 90 -2 -2 0. D 67 SS ti OR 44 7- 7- 00 CA 72 ON ve N 21 20 20 0 RE 90 B- [address] 12 3 PH EP AR HE 1, MA N 00 CY A 0 MC LL G C TA BL ET 00 07 07 0 10 10 ME 14 BE Ac TA 53 -2 -2 0. D 63 SS ti OR 63 0- 0- 00 CA 48 ON ve N 79 20 20 0 RE 12 D3 [address] 1 PH EP 2, AR HE 00 MA N 0 CY A UN IT LL C SO FT GE L 00 12 01 0 60 6 ME 12 BE Ac TA 53 -2 -2 .0 D 05 SS ti OR 63 9- 5- 00 CA 55 ON [...] 9- 8- .0 CA 14 ON ve DE 04 20 20 00 RE 37 OT [address] EC 4 PH EP T AR HE CR MA N EA CY A M LL C BA 11 12 12 0 14 15 ME 11 BE Ac ZA 70 -2 -2 20 D 97 SS ti 10 9- 9- .0 CA 38 ON ve DE 04 20 20 00 RE 56 OT [...] -2 -2 0. D 97 SS ti OR 63 9- 9- 00 CA 38 ON [...] EASE D AG CONT ENT IM TDAP 08- 115 LYN No LYN 6-20 ROGELIO ROGELIO VACC 17 MEM MEM INE 7 HOSP HOSP YRS/ INC INC > IM Results Labs Lab Lab Date Result Refere Interp Status Commen Order Detail nces retati t Range on CBC w auto diff (03-13-2017 12:34) Automat = 14.2 11.5-17 complet ed 017 % .5 ed erythro 12:34 cyte distrib ution width Blood = 7.8 4.8-10. complet leukocy 017 K/MM3 8 ed olya 12:34 count (number /volume ) Automat = 0.0 0-0.2 complet ed 017 K/MM3 ed blood 12:34 basophi l count (count/ vo Baso % = 0.3 % 0.1-2.0 complet 017 ed 12:34 Automat = 0.3 0.0-0.4 complet ed 017 K/mm3 ed blood 12:34 eosinop hil count Automat = 3.7 % 0.1-12. complet ed 017 0 ed blood 12:34 eosinop hils/10 0 leukocy t Blood = 6.1 1.8-7.8 complet granulo 017 K/mm3 ed cytes 12:34 automat ed count (numb Granulo = 78.0 37.0-80 complet cyte 017 % .0 ed percent 12:34 age Blood = 27.9 37.0-47 complet hematoc 017 % .0 ed rit 12:34 (volume fractio n) Blood = 8.6 12.2-16 complet hemoglo 017 g/dL .2 ed bin 12:34 measure ment (mass/v olum Absolut = 0.8 0.7-4.5 complet e 017 K/mm3 ed lymphoc 12:34 yte count Lymphoc = 9.7 % 10-50.0 complet yte 017 ed count, 12:34 blood, automat ed Mean = 28.1 27-31.2 complet corpusc 017 pg ed ular 12:34 hemoglo bin (MCH) determ Automat = 30.5 31.8-35 complet ed 017 g/dl .4 ed erythro 12:34 cyte mean corpusc ular h Automat = 92.0 82.2-97 complet ed 017 fl .8 ed erythro 12:34 cyte mean corpusc ular v Absolut = 0.7 0.1-1.0 complet e 017 K/mm3 ed monocyt 12:34 e count [place] % = 8.3 % 1.7-9.3 complet 017 ed 12:34 Automat = 9.1 7.4-10. complet ed 017 fl 4 ed blood 12:34 platele t mean volume karsten Blood = 214 142-424 complet platele 017 K/mm3 ed t count 12:34 Red = 3.03 4.2-5.4 complet blood 017 M/mm3 ed cell 12:34 count Cardiac enzymes (03-13-2017 12:34) Serum = 3.2 0-4.0 complet or 017 U/L ed plasma 12:34 creatin e kinase MB (CK-M Serum = 0.8 0.0-3.6 complet or 017 ng/mL ed plasma 12:34 creatin e kinase MB measu Serum = 25 26-192 complet or 017 U/L ed plasma 12:34 creatin e kinase measure m Serum = 0.04 0.00-0. complet or 017 ng/mL 06 ed plasma 12:34 troponi n i.cardi ac measu Comprehensive metabolic panel (03-13-2017 12:34) Serum = 1.0 1.1-1.8 complet or 017 ed plasma 12:34 albumin /globul in mass ra Serum = 3.0 3.4-5.0 complet or 017 gm/dL ed plasma 12:34 albumin measure ment (mas Serum = 98 46-116 complet or 017 U/L ed plasma 12:34 alkalin e phospha tase karsten Serum = 0.5 0.2-1.0 complet or 017 mg/dL ed plasma 12:34 total bilirub in measure m Serum = 36 7-18 complet or 017 mg/dL ed plasma 12:34 urea nitroge n measure men Serum = 8.6 8.5-10. complet or 017 mg/dL 1 ed plasma 12:34 calcium measure ment (mas Serum = 105 98-107 complet or 017 mmoL/L ed plasma 12:34 chlorid e measure ment (mo Carbon = 25 21.0-32 complet dioxide 017 mmoL/L .0 ed 12:34 measure ment Serum = 1.8 0.55-1. complet or 017 mg/dL 02 ed plasma 12:34 creatin ine measure ment ( Estimat = 28 50-200 complet ion of 017 ML/MIN ed creatin 12:34 ine renal clearan ce Estimat = 27 59- complet ed 017 ML/MIN ed glomeru 12:34 lar filtrat ion rate (GF Comment: REFERENCE RANGE: >60 ML/MIN/1.73 SQUARE METERS Comment: If this patient is -Monegas[place], then multiply the Comment: result by 1.210. Serum = 3.1 1.3-3.2 complet globuli 017 gm/dL ed n 12:34 measure ment (mass/v olume) Serum = 138 74-106 complet or 017 mg/dL ed plasma 12:34 glucose measure ment (mas Serum = 4.9 3.5-5.1 complet potassi 017 mmoL/L ed um 12:34 measure ment Serum = 137 136-145 complet sodium 017 mmoL/L ed measure 12:34 ment Serum = 6 U/L 15-37 complet or 017 ed plasma 12:34 asparta te aminotr ansfera ALT = 8 U/L 12-78 complet (SGPT) 017 ed ser/eliud 12:34 s Protein = 6.1 6.4-8.2 complet total 017 gm/dL ed ser/eliud 12:34 s Urinalysis dipstick W Reflex Microscopic panel in [...] Procedure DOS Code Location Performer Comment SBSQ [address]371 [place] [address] PHYSICIAN CARE/DAY S GROUP 15 MINUTES SBSQ 45217 [place] [address] PHYSICIAN CARE/DAY S GROUP 15 MINUTES CATH PLMT 83086 [facility] 7 PHYSICIAN HRT/ARTS/ S GROUP GRFTS WNJX & ANGIO IMG S&I INITIAL 67723 [place] [address] PHYSICIAN CARE/DAY S GROUP 70 [place]UT[place] PRQ [address] [facility] TRL[facility] 7 PHYSICIAN CORONARY S GROUP STENT W/ANGIO ONE ART/BRNCH ECG 00346 AISHA ANDERSON ROUTINE 7 PHYSICIAN ECG S, PLLC W/LEAST 12 LDS I&R ONLY RADIOLOGI 06549 [facility] Lamb [facility] EXAMINATI INC INC ON TIBIA & FIBULA 2 VIEWS ADMINISTR G0008 A C ELSA ATION OF 7 [facility] INFLUENZA PSC VIRUS VACCINE IIV 16763 A C HUNTER VACCINE 7 [facility] [place] PRESERV PSC FREE INCREASED AG CONTENT IM DRESSING 42159 A C LESA CHANGE 7 [facility] [place] UNDER PSC ANESTHESI A CUL BACT 82884 [facility] VEGA XCPT 7 [facility] H[facility] URINE INC INC BLOOD/STO OL AEROBIC ISOL CUL BACT 33737 [facility] AEROBIC 7 [facility] ADDL INC INC METHS DEFINITIV E EA ISOL COLLECTIO 73688 [facility] N VENOUS 7 [facility] BLOOD INC INC VENIPUNCT URE BLOOD 26567 [facility] VE[facility] COUNT 7 [facility] COMPLETE INC INC AUTO&AUTO DIFRNTL WBC SUSCEPTIB 14708 [facility] VE[facility] LTY STDY 7 [facility] ANTIMICRB INC INC IAL MICRO/AGA R DILUTJ BLOOD 43235 A Adonis HUNTER COUNT 7 [place] COMPLETE PSC AUTO&AUTO DIFRNTL WBC INJECTION J3301 A Adonis HUNTER 7 [facility] [place] TRIAMCINO PSC LONE ACETONIDE NOS 10 MG COLLECTIO 81332 A Adonis HUNTER N VENOUS 7 [place] BLOOD PSC VENIPUNCT URE INJECTION J1030 A Adonis HUNTER 7 [place] METHYLPRE PSC DNISOLONE ACETATE 40 MG THERAPEUT 68084 A Adonis HUNTER IC 7 [facility] PROPHYLAC PSC TIC/DX INJECTION SUBQ/IM INJECTION J3420 A Adonis HUNTER VIT B-12 7 [facility] PSC CYANOCOBA ALETA TO 1000 MCG AMB A0427 [facility] SERVICE 7 AMBULANCE AMBULANCE ALS SERVICE SERVICE EMERGENCY TRANSPORT LEVEL 1 SMPL RPR 80434 [facility] SCALP/NEC 7 [facility] K/AX/GWENDOLYN INC INC T/TRUNK 12.6-20.0 CM IM ADM 60703 [facility] PRQ ID 7 [facility] SUBQ/IM INC INC NJXS 1 VACCINE TDAP 68752 [facility] VE[facility] VACCINE 7 7 [facility] H[facility] YRS/> IM INC INC GROUND A0425 [facility] MILEAGE 7 AMBULANCE AMBULANCE PER SERVICE SERVICE STATUTE MILE O2 CONC 1 E1390 DEANGELO DEANGELO DEL PORT 7 MANOR MANOR 85%/>02 INC- INC- CONC AT [facility] FLW RATE BLOOD 32188 COMBINED COMBINED COUNT 7 PHYSICIAN PHYSICIAN COMPLETE S LA S LA AUTO&AUTO DIFRNTL WBC BASIC 24982 COMBINED COMBINED METABOLIC 7 PHYSICIAN PHYSICIAN PANEL S LA S LA CALCIUM TOTAL CYANOCOBA 24817 COMBINED COMBINED ALETA 7 PHYSICIAN PHYSICIAN VITAMIN S LA S LA B-[address]VEL [address] MED 7 PHYSICIAN PHYSICIAN NEC LAB S LA S LA SPEC; PRORAT ACTL MILE COLLECTIO 21655 COMBINED COMBINED N VENOUS 7 PHYSICIAN PHYSICIAN BLOOD S LA S LA VENIPUNCT URE O2 CONC 1 E1390 DEANGELO DEANGELO DEL PORT 7 MANOR MANOR 85%/>02 INC- INC- CONC AT [facility] FLW RATE GROUND A0425 [facility] MILEAGE 7 AMBULANCE AMBULANCE PER SERVICE SERVICE STATUTE MILE SBSQ 31003 [facility] 7 PHYSICIAN CARE/DAY S GROUP 15 MINUTES AMBULANCE A0428 [facility] SERVICE 7 AMBULANCE AMBULANCE BLS SERVICE SERVICE NONEMERGE NCY TRANSPORT GROUND A0425 [facility] PER SERVICE SERVICE STATUTE MILE AMB A0427 [facility] 7 AMBULANCE AMBULANCE ALS SERVICE SERVICE [place] [address] [place] [facility] HEAD/BRAI 7 MEDICAL N W/O IMAGING CONTRAST ASS MATERIAL RADIOLOGI 15426 [place] [facility] C 7 MEDICAL EXAMINATI IMAGING ON CHEST ASS SINGLE VIEW FRONTAL ECG 98857 GARY WATTS JR ROUTINE 7 [facility] W/LEAST P 12 LDS I&R ONLY COMPREHEN 73871 [facility] VEGA SIVE 7 [facility] HOS[facility] METABOLIC INC INC PANEL BLOOD 78193 [facility] VEGA COUNT 7 [facility] COMPLETE INC INC AUTO&AUTO DIFRNTL WBC URNLS DIP 98953 [facility] VEGA 7 [facility] STICK/TAB INC INC LET REAGENT AUTO MICROSCOP Y COLLECTIO 86686 [facility] VE[facility] N VENOUS 7 MEM HOS[facility] MEM HOS[facility] [place] [address] [facility] THYROID 7 CHIDI CHIDI STIMULATI HOLDINGS [place] [address] [facility] THYROID 7 CHIDI CHIDI STIMULATI HOLDINGS [place] [address] LAB [facility] FREE 7 CHIDI CHIDI THYROXINE HOLDINGS HOLDINGS CYANOCOBA 40705 LAB [facility] LAB WILLY ALETA 7 CHIDI CHIDI VITAMIN HOLDINGS HOLDINGS B-12 BASIC 74998 [facility] METABOLIC 7 CHIDI CHIDI PANEL HOLDINGS HOLDINGS CALCIUM TOTAL SEAT E0156 H[facility]TER HUNTER ATTACHMEN 7 HOME HOME T WALKER MEDICAL MEDICAL EQUIPME EQUIPME WALKER E0143 HUNTER HARRISON FOLDING 7 HOME HOME WHEELED MEDICAL MEDICAL ADJUSTABL EQUIPME EQUIPME [place] [address] [facility] THYROID 7 CHIDI CHIDI STIMULATI HOLDINGS [place] [address] [facility] FREE 7 CHIDI CHIDI THYROXINE HOLDINGS HOLDINGS BASIC 56688 LAB WILL[facility] LAB WILLY METABOLIC 7 CHIDI CHIDI PANEL HOLDINGS HOLDINGS CALCIUM TOTAL BASIC 77027 LAB [facility]Y METABOLIC 6 CHIDI CHIDI PANEL [place] [address] LAB [facility] LAB WILLY THYROID 6 CHIDI CHIDI STIMULATI HOLD[place] [address] LAB [facility] LAB WILLY THYROID 6 CHIDI CHIDI STIMULATI HOLD[place] [address] LAB [facility] LAB WILLY FREE 6 CHIDI CHIDI THYROXINE HOLDINGS HOLDINGS CYANOCOBA 08492 LAB [facility] LAB WILLY ALETA 6 CHIDI CHIDI VITAMIN HOLDINGS HOLDINGS B-12 BASIC 73310 LAB [facility] LAB WILLY METABOLIC 6 CHIDI CHIDI PANEL HOLDINGS HOLDINGS CALCIUM TOTAL BASIC 90231 LAB [facility] LAB WILLY METABOLIC 6 CHIDI CHIDI PANEL HOLD[place] [address] LAB [facility] LAB WILLY THYROID 6 [facility] CHIDI STIMULATI HOLDINGS [place] [address] [facility] FREE 6 CHIDI CHIDI THYROXINE HOLDINGS HOLDINGS DUPLEX 73095 [place] [facility] SCAN 6 MEDICAL JONELLE EXTRACRAN IMAGING IAL ART ASS COMPL BI STUDY INJECTION J1030 Yakov HUNTER 6 TROY PEDRAZA METHYLPRE PSC DNISOLONE ACETATE 40 MG INJ J0702 A Adonis HUNTER BETAMETHA 6 TROY PEDRAZA SONE PSC ACETATE & PHOSPH[place] 3 [place] [address] [facility] FREE 6 DIAGNOSTI DIAGNOSTI THYROXINE CS CS INCORPORA INCORPORA T T COMPREHEN 66557 [facility] SIVE 6 DIAGNOSTI DIAGNOSTI METABOLIC CS CS [place] [address] [facility] THYROID 6 DIAGNOSTI DIAGNOSTI STIMULATI CS CS NG INCORPORA INCORPORA HORMONE T T TSH THERAPEUT 96489 A Adonis HUNTER IC 6 TROY [facility]ED[facility] PROPHYLAC PSC TIC/DX INJECTION SUBQ/IM INJECTION J3420 A Adonis HUNTER VIT B-12 6 TROY PEDRAZA PSC CYANOC[place] [address] [place] [address] [facility] FERRITIN 6 DIAGNOSTI DIAGNOSTI CS CS INCORPORA INCORPORA T T BLOOD 39726 [facility] COUNT 6 DIAGNOSTI DIAGNOSTI COMPLETE CS CS AUTO&AUTO INCORPORA INCORPORA DIFRNTL T T WBC CYANOCOBA 99268 [facility] LAB WILLY ALETA 6 CHIDI CHIDI VITAMIN HOLDINGS HOLDINGS B-12 [place] [address] LAB [facility] LAB WILL[facility] THYROID 6 CHIDI CHIDI STIMULATI HOLDINGS [place] [address] LAB [facility] LAB WILLY FREE 6 CHIDI CHIDI THYROXINE HOLDINGS HOLDINGS BASIC 69920 [facility] METABOLIC 6 [facility] CHIDI PANEL HOLDINGS HOLDINGS CALCIUM TOTAL Encounters Encounter Start End Date Code Location Performer Type Date EMERGENCY 12796 AISHA ANDERSON DEPT 7 7 PHYSICIAN VISIT S, PLLC HIGH SEVERITY& THREAT FUNCJ OFFICE 64265 A Adonis TAY 7 7 [facility] T VISIT [facility] 15 MINUTES HOSPITAL GARY - 7 7 [facility] OUTPATIEN INC T OFFICE 03403 Yakov TAY 7 7 [facility] T VISIT PSC 15 MINUTES OFFICE 19251 Yakov TAY 7 7 [facility] T VISIT [facility] 15 MINUTES EMERGENCY 77739 [facility] 7 7 [facility] T VISIT LOW/MODER SEVERITY HOSPITAL GARY - 7 7 MEM H[facility] OUTPATIEN INC T EMERGENCY 17392 AISHA ROWE, 7 7 PHYSICIAN [facility] T VISIT HIGH/URGE NT SEVERITY OFFICE 01063 A Adonis TAY 7 7 [facility] T VISIT PSC 15 MINUTES EMERGENCY 00604 [facility]ARY 7 7 [facility] T VISIT HIGH/URGE NT SEVERITY HOSPITAL GARY - 7 7 [facility] OUTPATIEN [facility] T EMERGENCY 29559 AISHA ANDRE 7 7 PHYSICIAN [facility] T VISIT MODERATE SEVERITY [facility] INPATIENT 7 7 [facility] INPATIENT 7 7 [facility] H[facility] GARY - 7 7 [facility] OUTPATIEN [facility] EMERGENCY 09433 [facility] 7 [facility] T VISIT LOW/MODER SEVERITY HOSPITAL GARY - 6 6 MEM HOSP OUTPATIEN INC T OFFICE 99736 Yakov HUNTER OUTSTEPHANIE 6 6 TROY PEDRAZA T VISIT PSC 15 MINUTES [facility] FACILITY 6 6 MANOR - OTHER INC- SPECIAL [facility] FACILITY 5 5 MANOR - OTHER INC- OFFICE 34763 JOANNE LIN OUTPATIEN 5 5 N T NEW 45 NEUROLOGY MINUTES
--- OUTSIDE RECORDS SUMMARY | 2017-03-18 20:19 | External Medical Summary Rpt | CCD ---
Author Author , VIRGINIA Organization VIRGINIA Address Unknown Phone [email or web address] Care Team Providers Care Cloth Grader Supervisor Name Role Phone A Adonis SIMMONS [...] Unavailable Unavailable ELSA CABAN Unavailable Unavailable [facility], Unavailable Unavailable [facility] Unavailable Unavailable INC, [facility] Un[facility] Unavailable [facility] P, [facility], Unavailable Unavailable [facility] MONICA ANDERSON Unavailable Unavailable [facility] Un[facility] KILPELA, KILPELA Unavailable Unavailable [...] Diagnosis DOS Provider Status I10 ESSENTIAL 02-17-2017 [facility] PRIMARY [facility]YSICIANS HYPERTENSIO GROUP N I214 NON-ST 02-17-2017 [facility] ELEVATION PHYSICIANS MYOCARDIAL GROUP INFARCTION I255 ISCHEMIC 02-17-2017 [facility] CARDIOMYOPA PHYSICIANS THY GROUP I5020 UNSPECIFIED 02-17-2017 [facility] SYSTOLIC PHYSICIANS CONGESTIVE GROUP HEART FAILURE E785 HYPERLIPIDE 02-15-2017 [facility] MACIEL PHYSICIANS UNSPECIFIED GROUP N87003 [facility] [place] 02-15-2017 [facility] COR ART PHYSICIANS W/UNSTABLE GROUP ANGINA PECTORIS I6529 OCCLUSION & 02-15-2017 [facility] STENOSIS PHYSICIANS UNSPECIFIED GROUP CAROTID ARTERY N183 CHRONIC 02-15-2017 [facility] KIDNEY PHYSICIANS DISEASE GROUP STAGE 3 MODERATE 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 [facility] PHYSICIANS AORTOCORONA GROUP RY BYPASS GRAFT R410 DISORIENTAT 02-14-2017 [facility] ION PHYSICIANS, UNSPECIFIED PLLC R7989 OTHER SPEC 02-14-2017 [facility] ABNORMAL PHYSICIANS, FINDINGS PLLC BLOOD CHEMISTRY [id number] LACERATION 02-04-2017 A Adonis SIMMONS W/O FOREIGN [facility]UM[facility] PSC BODY LT LOW LEG SBSQT ENC [id number] UNS INJURY 02-04-2017 [facility] RT LOWER [facility] LEG INC SUBSEQUENT ENCOUNTER [id number] FALL FROM 02-04-2017 A Adonis SIMMONS BED PSC SUBSEQUENT ENCOUNTER Z23 ENCOUNTER 02-04-2017 A Adonis CONWAY MD PSC IMMUNIZATIO N D649 ANEMIA 01-23-2017 [facility] UNSPECIFIED PHYSICIANS, PLLC [id number] LACERATION 01-23-2017 [facility] W/O FOREIGN PHYSICIANS, BODY LT PLLC LOW LEG INIT ENC S82157 OTHER LONG 01-23-2017 [facility] TERM [facility] CURRENT INC DRUG THERAPY E538 DEFICIENCY 01-20-2017 A Adonis SIMMONS OF [place] [facility] PSC SPECIFIED B GROUP VITAMINS M1990 UNSPECIFIED 01-20-2017 A Adonis SIMMONS MD PSC OSTEOARTHRI TIS UNSPECIFIED SITE [id number] OTHER SPEC 01-19-2017 [facility] INJURIES LT AMBULANCE [...] G20 PARKINSONS 12-23-2016 [facility] DIS[facility]ASE [facility] SERVICE N61704 [facility] [place] 12-21-2016 [facility] ORDAZREPLACED BY [facility] P ANGINA PECTORIS [id number] ATHEROSCLER 12-21-2016 [facility] P ARTERY CABG W/UNS AP R079 CHEST PAIN 12-21-2016 [facility] R531 WEAKNESS 12-21-2016 [facility] P R5383 OTHER 12-21-2016 [facility] E039 HYPOTHYROID 12-08-2016 [facility] ISM [facility]I UNSPECIFIED HOLDINGS E782 MIXED 11-17-2016 [facility] HYPERLIPIDE CH[facility] MACIEL HOLDINGS Z9181 HISTORY OF 08-18-2016 [facility] M542 CERVICALGIA 11-26-2015 [facility]I HOLDINGS M549 DORSALGIA 11-26-2015 [facility] UNSPECIFIED [facility]I HOLDINGS I2510 [facility] [place] 10-15-2015 [facility] CORONARY MEDICAL ARTERY W/O IMAGING ASS ANGINA PECTORIS R0989 OTH SPEC SX 10-15-2015 [facility] & SIGNS MEDICAL INVLV THE IMAGING ASS CIRC & RESP SYS E611 IRON 10-07-2015 [facility] DEFICIENCY DIAGNOSTICS INCORPORAT M545 LOW BACK 10-07-2015 A Adonis SIMMONS PAIN [facility] A18279 PAIN IN 08-06-2015 [facility] RIGHT HIP CIHDI HOLDINGS R296 REPEATED 06-06-2015 [facility]- G250 ESSENTIAL 05-13-2015 [facility] NEUROLOGY Allergies, Adverse Reactions, Alerts Clinical Alert [...] -2 -2 0. D 66 SS ti VT 63 0- 8- 00 CA 58 ON ve N 79 20 20 0 RE 02 D3 [address] 1 PH EP 2, AR HE 00 MA N 0 CY A UN IT LL C SO FT GE L 00 07 07 0 18 18 ME 14 BE Ac TA 90 -2 -2 0. D 67 SS ti VT 44 7- 7- 00 CA 72 ON ve N 21 20 20 0 RE 90 B- [address] 12 3 PH EP AR HE 1, MA N 00 CY A 0 MC LL G C TA BL ET 00 07 07 0 10 10 ME 14 BE Ac TA 53 -2 -2 0. D 63 SS ti VT 63 0- 0- 00 CA 48 ON ve N 79 20 20 0 RE 12 D3 [address] 1 PH EP 2, AR HE 00 MA N 0 CY A UN IT LL C SO FT GE L 00 12 01 0 60 6 ME 12 BE Ac TA 53 -2 -2 .0 D 05 SS ti VT 63 9- 5- 00 CA 55 ON [...] 9- 8- .0 CA 14 ON ve LA 04 20 20 00 RE 37 OT [address] EC 4 PH EP T AR HE CR MA N EA CY A M LL C BA 11 12 12 0 14 15 ME 11 BE Ac ZA 70 -2 -2 20 D 97 SS ti 10 9- 9- .0 CA 38 ON ve LA 04 20 20 00 RE 56 OT [...] -2 -2 0. D 97 SS ti VT 63 9- 9- 00 CA 38 ON [...] 017 K/mm3 ed monocyt 12:34 e count [place] % = 8.3 % 1.7-9.3 complet 017 [...] SQUARE METERS Comment: If this patient is -Thai, then multiply the Comment: result by 1.210. [...] Procedure DOS Code Location Performer Comment SBSQ 77993 [place] [address] PHYSICIAN CARE/DAY S GROUP 15 MINUTES SBSQ 75439 [place] [address] PHYSICIAN CARE/DAY S GROUP 15 MINUTES CATH PLMT 83737 [facility] 7 PHYSICIAN HRT/ARTS/ S GROUP GRFTS WNJX & ANGIO IMG S&I INITIAL 08860 [place] [address] PHYSICIAN CARE/DAY S GROUP 70 MINUTES PRQ 09739 [facility] TRLUML 7 PHYSICIAN CORONARY S GROUP STENT W/ANGIO ONE ART/BRNCH ECG 55179 AISHA ANDERSON ROUTINE 7 PHYSICIAN ECG S, PLLC W/LEAST 12 LDS I&R ONLY RADIOLOGI 83170 [facility] Lamb 7 [facility] EXAMINATI INC INC ON TIBIA & FIBULA 2 VIEWS ADMINISTR G0008 A C ELSA ATION OF 7 [facility] INFLUENZA PSC VIRUS VACCINE IIV 01176 A C H[facility]TER VACCINE 7 [place] PRESERV PSC FREE INCREASED AG CONTENT IM DRESSING 33621 A C ELSA CHANGE 7 [facility] [place] UNDER PSC ANESTHESI A CUL BACT 17052 [facility] VEGA XCPT 7 [facility] URINE INC INC BLOOD/STO OL AEROBIC ISOL CUL BACT 55079 [facility] VE[facility] AEROBIC 7 [facility] ADDL INC INC METHS DEFINITIV E EA ISOL COLLECTIO 32075 [facility] N VENOUS 7 [facility] BLOOD INC INC VENIPUNCT URE BLOOD 58782 [facility] VE[facility] COUNT 7 [facility] COMPLETE INC INC AUTO&AUTO DIFRNTL WBC SUSCEPTIB 33850 [facility] LTY STDY 7 [facility] ANTIMICRB INC INC IAL MICRO/AGA R DILUTJ BLOOD 93903 A Adonis HUNTER COUNT 7 [place] COMPLETE PSC AUTO&AUTO DIFRNTL WBC INJECTION J3301 A Adonis HUNTER 7 [place] TRIAMCINO PSC LONE ACETONIDE NOS 10 MG COLLECTIO 48659 A Adonis HUNTER N VENOUS 7 [place] BLOOD PSC VENIPUNCT URE INJECTION J1030 A Adonis HUNTER 7 [place] METHYLPRE PSC DNISOLONE ACETATE 40 MG THERAPEUT 22787 A Adonis HUNTER IC 7 [place] PROPHYLAC PSC TIC/DX INJECTION SUBQ/IM INJECTION J3420 A Adonis HUNTER VIT B-12 7 [place] PSC CYANOCOBA ALETA TO 1000 MCG AMB A0427 [facility] 7 AMBULANCE AMBULANCE ALS SERVICE SERVICE EMERGENCY TRANSPORT LEVEL 1 SMPL RPR 16282 [facility] SCALP/NEC 7 [facility] K/AX/GWENDOLYN INC INC T/TRUNK 12.6-20.0 CM IM ADM 60928 [facility] PRQ ID 7 [facility] SUBQ/IM INC INC NJXS 1 VACCINE TDAP 08760 [facility] VACCINE 7 7 [facility] YRS/> IM INC INC GROUND A0425 [facility]LE[facility] 7 AMBULANCE AMBULANCE PER SERVICE SERVICE STATUTE MILE O2 CONC 1 E1390 [facility]O DEANGELO DEL PORT 7 MANOR MANOR 85%/>02 INC- INC- CONC AT [facility] FLW RATE BLOOD 74626 COMBINED COMBINED COUNT 7 PHYSICIAN PHYSICIAN COMPLETE S LA S LA AUTO&AUTO DIFRNTL WBC BASIC 67613 COMBINED COMBINED METABOLIC 7 PHYSICIAN PHYSICIAN PANEL S LA S LA CALCIUM TOTAL CYANOCOBA 40933 COMBINED COMBINED ALETA 7 PHYSICIAN PHYSICIAN VITAMIN S LA S LA B-[address] TRAVEL [address] MED 7 PHYSICIAN PHYSICIAN NEC LAB S LA S LA SPEC; PRORAT ACTL MILE COLLECTIO 94190 COMBINED COMBINED N VENOUS 7 PHYSICIAN PHYSICIAN BLOOD S LA S LA VENIPUNCT URE O2 CONC 1 E1390 DEANGELO DEANGELO DEL PORT 7 MANOR MANOR 85%/>02 INC- INC- CONC AT [facility] FLW RATE GROUND A0425 [facility] 7 AMBULANCE AMBULANCE PER SERVICE SERVICE STATUTE MILE SBSQ 20284 [facility] 7 PHYSICIAN CARE/DAY S GROUP 15 MINUTES AMBULANCE A0428 [facility] 7 AMBULANCE AMBULANCE BLS SERVICE SERVICE NONEMERGE NCY TRANSPORT GROUND A0425 [facility] PER SERVICE SERVICE STATUTE MILE AMB A0427 [facility] 7 AMBULANCE AMBULANCE ALS SERVICE SERVICE [place]ERGENC[place] [address] [place] [address] [place] [facility] HEAD/BRAI 7 MEDICAL N W/O IMAGING CONTRAST ASS MATERIAL RADIOLOGI 92473 [place] [facility] C 7 MEDICAL EXAMINATI IMAGING ON CHEST ASS SINGLE VIEW FRONTAL ECG 49069 GARY WATTS JR ROUTINE 7 [facility] W/LEAST P 12 LDS I&R ONLY COMPREHEN 41628 [facility] VEGA SIVE 7 [facility] METABOLIC INC INC PANEL BLOOD 57383 [facility] VEGA COUNT 7 [facility] COMPLETE INC INC AUTO&AUTO DIFRNTL WBC URNLS DIP 57883 [facility] VEGA 7 [facility] STICK/TAB INC INC LET REAGENT AUTO MICROSCOP Y COLLECTIO 68627 [facility] VE[facility] N VENOUS 7 [facility] HOS[facility]OS[facility] [place] [address] [facility] THYROID 7 CHIDI CHIDI STIMULATI HOLDINGS [place] [address] [facility] THYROID 7 CHIDI CHIDI STIMULATI HOLD[place] [address] LAB [facility] FREE 7 CHIDI CHIDI THYROXINE HOLDINGS HOLDINGS CYANOCOBA 73268 LAB [facility] LAB WILLY ALETA 7 CHIDI CHIDI VITAMIN HOLDINGS HOLDINGS B-12 BASIC 30226 [facility] METABOLIC 7 CHIDI CHIDI PANEL HOLDINGS HOLDINGS CALCIUM TOTAL SEAT E0156 [facility] HUNTER ATTACHMEN 7 HOME HOME T WALKER MEDICAL MEDICAL EQUIPME EQUIPME WALKER E0143 [facility] [place] FOLDING 7 HOME HOME WHEELED MEDICAL MEDICAL ADJUSTABL EQUIPME EQUIPME [place] [address] LAB [facility] THYROID 7 CHIDI CHIDI STIMULATI HOLDINGS [place] [address] LAB [facility] LAB WILLY FREE 7 CHIDI CHIDI THYROXINE HOLDINGS HOLDINGS BASIC 66392 LAB WILLY LAB WILLY METABOLIC 7 CHIDI CHIDI PANEL HOLDINGS HOLDINGS CALCIUM TOTAL BASIC 97668 LAB [facility] LAB WILLY METABOLIC 6 CHIDI CHIDI PANEL [place] [address] LAB [facility] LAB WILLY THYROID 6 CHIDI CHIDI STIMULATI HOLD[place] [address] LAB [facility] LAB WILLY THYROID 6 CHIDI CHIDI STIMULATI HOLD[place] [address] LAB [facility] LAB WILLY FREE 6 CHIDI CHIDI THYROXINE HOLDINGS HOLDINGS CYANOCOBA 02509 LAB WILLY LAB WILLY ALETA 6 CHIDI CHIDI VITAMIN HOLDINGS HOLDINGS B-12 BASIC 23802 LAB [facility] LAB WILLY METABOLIC 6 CHIDI CHIDI PANEL HOLDINGS HOLDINGS CALCIUM TOTAL BASIC 57104 LAB [facility] LAB WILLY METABOLIC 6 CHIDI CHIDI PANEL [place] [address] LAB WILLY LAB WILLY THYROID 6 [facility] CHIDI STIMULATI [place] [address] LAB [facility] FREE 6 CHIDI CHIDI THYROXINE HOLDINGS HOLDINGS DUPLEX 89182 [place] MARY SCAN 6 MEDICAL JONELLE EXTRACRAN IMAGING IAL ART ASS COMPL BI STUDY INJECTION J1030 Yakov HUNTER 6 TROY [facility] METHYLPRE PSC DNISOLONE ACETATE 40 MG INJ J0702 A Adonis HUNTER BETAMETHA 6 TROY [facility]ED[facility] SONE PSC ACETATE & PHOSPHATE 3 [place] [address] [facility] FREE 6 DIAGNOSTI DIAGNOSTI THYROXINE CS CS INCORPORA INCORPORA T T COMPREHEN 06428 [facility] SIVE 6 DIAGNOSTI DIAGNOSTI METABOLIC CS [place] [address] [facility] THYROID 6 DIAGNOSTI DIAGNOSTI STIMULATI CS CS NG INCORPORA INCORPORA HORMONE T T TSH THERAPEUT 46976 A Adonis HUNTER IC 6 [facility] PROPHYLAC PSC TIC/DX INJECTION SUBQ/IM INJECTION J3420 A Adonis HUNTER VIT B-12 6 [facility] [place] PSC CYANOCOBA [place] TO [address] [place] [address] [facility] FERRITIN 6 DIAGNOSTI DIAGNOSTI CS CS INCORPORA INCORPORA T T BLOOD 65900 [facility] COUNT 6 DIAGNOSTI DIAGNOSTI COMPLETE CS CS AUTO&AUTO INCORPORA INCORPORA DIFRNTL T T WBC CYANOCOBA 02106 [facility] WILLY ALETA 6 CHIDI CHIDI VITAMIN HOLDINGS HOLDINGS B-12 [place] [address] [facility] WILLY THYROID 6 CHIID CHDII STIMULATI HOLDINGS [place] [address] LAB [facility] LAB WILLY FREE 6 CHIDI CHIDI THYROXINE HOLDINGS HOLDINGS BASIC 29372 [facility] METABOLIC 6 CH[facility]I CHIDI PANEL HOLDINGS HOLDINGS CALCIUM TOTAL Encounters Encounter Start End Date Code Location Performer Type Date EMERGENCY 43505 AISHA ANDERSON DEPT 7 7 PHYSICIAN VISIT S, PLLC HIGH SEVERITY& THREAT FUNCJ OFFICE 80018 A Adonis TAY 7 7 [facility] [place] T VISIT [facility] 15 MINUTES HOSPITAL GARY - 7 7 [facility] OUTPATIEN INC T OFFICE 44992 Yakov TAY 7 7 [facility] [place] T VISIT PSC 15 MINUTES OFFICE 37570 Yakov TAY 7 7 [facility] [place] T VISIT [facility] 15 MINUTES EMERGENCY 39649 [facility] 7 7 [facility] T VISIT LOW/MODER SEVERITY HOSPITAL GARY - 7 7 [facility] H[facility] OUTPATIEN INC T EMERGENCY 79396 AISHA ROWE, 7 7 PHYSICIAN [facility] T VISIT HIGH/URGE NT SEVERITY OFFICE 84222 A Adonis TAY 7 7 [facility] T VISIT PSC 15 MINUTES EMERGENCY 14860 [facility] 7 [facility] T VISIT HIGH/URGE NT SEVERITY HOSPITAL GARY - 7 7 [facility] OUTPATIEN [facility] T EMERGENCY 57893 AISHA ANDRE 7 7 PHYSICIAN [facility] T VISIT MODERATE SEVERITY [facility] INPATIENT 7 7 [facility] INPATIENT 7 7 [facility] GARY - 7 7 [facility] OUTPATIEN [facility] EMERGENCY 82775 GARY 7 7 [facility] T VISIT LOW/MODER SEVERITY HOSPITAL GARY - 6 6 MEM HOSP OUTPATIEN INC T OFFICE 47692 Yakov HUNTER OUTSTEPHANIE 6 6 TROY P[facility] T VISIT PSC 15 MINUTES [facility] 6 6 [facility] - OTHER INC- [facility] 5 5 MAN[facility] - OTHER INC- OFFICE 23835 JOANNE LIN OUTPATIEN 5 5 N T NEW 45 NEUROLOGY MINUTES
--- OUTSIDE RECORDS SUMMARY | 2017-03-18 20:21 | External Medical Summary Rpt | CCD ---
Demographics Preferred Language Uzbek Marital Status Unknown Hindu Affiliation Unknown Race Unknown Ethnic Group Unknown Author Author , VIRGINIA COLEMAN Address Unknown Phone Immunization Unable to retrieve immunization data due to connection failure with Immunization Registry. Please try again later.
--- OUTSIDE RECORDS SUMMARY | 2017-03-18 20:21 | External Medical Summary Rpt | CCD ---
Demographics Preferred Language Frisian Marital Status Unknown Presybeterian Affiliation Unknown Race Unknown Ethnic Group Unknown Author Author , VIRGINIA COLEMAN Address Unknown Phone Immunization Unable to retrieve immunization data due to connection failure with Immunization Registry. Please try again later.
--- OUTSIDE RECORDS SUMMARY | 2017-03-18 20:21 | External Medical Summary Rpt | CCD ---
Author Author , [place] Organization [place] Address Unknown Phone [email or web address] Care Team Providers Care Head Athletic Trainer Name Role Phone A Adonis SIMMONS MD P[facility], Yakov Unavailable Unavailable Adonis SIMMONS MD PSC JUAREZ, UJAREZ Unavailable Unavailable [facility] Unavailable Unavailable SERVICE, [facility] Unavailable Unavailable SERVICE, [facility] Unavailable Unavailable [place], [facility] MARY JONELLE, Unavailable Unavailable MARY JONELLE [facility] Unavailable Unavailable [facility] ROWE FULLER, Unavailable Unavailable ELSA OCHOA Unavailable Unavailable ELSA CABAN Unavailable Unavailable [facility], Unavailable Unavailable [facility] Unavailable Unavailable INC, [facility] Unavailable [facility]available HOSPITAL P, [facility], Unavailable Unavailable [facility] MONICA ANDERSON Unavailable Unavailable [facility] KILPELA, KILPELA Unavailable Unavailable [...] Diagnosis DOS Provider Status I10 ESSENTIAL 02-17-2017 [facility] PRIMARY PHYSICIANS HYPERTENSIO GROUP N I214 NON-ST 02-17-2017 [facility] ELEVATION PHYSICIANS MYOCARDIAL GROUP INFARCTION I255 ISCHEMIC 02-17-2017 [facility] CARDIOMYOPA PHYSICIANS THY GROUP I5020 UNSPECIFIED 02-17-2017 [facility] SYSTOLIC PHYSICIANS CONGESTIVE GROUP HEART FAILURE E785 HYPERLIPIDE 02-15-2017 [facility] MACIEL PHYSICIANS UNSPECIFIED GROUP [id number] ASHD TETLIN 02-15-2017 [facility] COR ART PHYSICIANS W/UNSTABLE GROUP ANGINA PECTORIS I6529 OCCLUSION & 02-15-2017 [facility] STENOSIS PHYSICIANS UNSPECIFIED GROUP CAROTID ARTERY N183 CHRONIC 02-15-2017 [facility] KIDNEY PHYSICIANS DISEASE GROUP STAGE 3 MODERATE 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 [facility] PHYSICIANS AORTOCORONA GROUP RY BYPASS GRAFT R410 DISORIENTAT 02-14-2017 [facility] ION PHYSICIANS, UNSPECIFIED PLLC R7989 OTHER SPEC 02-14-2017 [facility] ABNORMAL PHYSICIANS, FINDINGS PLLC BLOOD CHEMISTRY [id number] LACERATION 02-04-2017 A Adonis SIMMONS W/O FOREIGN [facility]UM[facility] PSC BODY LT LOW LEG SBSQT ENC [id number] UNS INJURY 02-04-2017 [facility] LEG INC SUBSEQUENT ENCOUNTER Z43PCLH FALL FROM 02-04-2017 A Adonis VELASQUEZ MD PSC SUBSEQUENT ENCOUNTER Z23 ENCOUNTER 02-04-2017 A Adonis CONWAY MD PSC IMMUNIZATIO N D649 ANEMIA 01-23-2017 [facility] UNSPECIFIED PHYSICIANS, PLLC [id number] LACERATION 01-23-2017 [facility]HA W/O FOREIGN PHYSICIANS, BODY LT PLLC LOW LEG INIT ENC U44642 OTHER LONG 01-23-2017 [facility] CURRENT INC DRUG THERAPY E538 DEFICIENCY 01-20-2017 A Adonis SIMMONS OF [place] [facility] PSC SPECIFIED B GROUP VITAMINS M1990 UNSPECIFIED 01-20-2017 A Adonis SIMMONS MD PSC OSTEOARTHRI TIS UNSPECIFIED SITE [id number] OTHER SPEC 01-19-2017 [facility] INJURIES LT AMBULANCE [...] G20 PARKINSONS 12-23-2016 [facility] [id number] ASHD TETLIN 12-21-2016 [facility] SOTELO [facility] W[facility]S HOSPITAL P ANGINA PECTORIS [id number] ATHEROSCLER 12-21-2016 [facility] P ARTERY CABG W/UNS AP R079 CHEST PAIN 12-21-2016 [facility] R531 WEAKNESS 12-21-2016 [facility] P R5383 OTHER 12-21-2016 [facility] E039 HYPOTHYROID 12-08-2016 [facility] ISM [facility] UNSPECIFIED HOLDINGS E782 MIXED 11-17-2016 [facility] HYPERLIPIDE [facility] MACIEL HOLDINGS Z9181 HISTORY OF 08-18-2016 [facility] M542 CERVICALGIA 11-26-2015 [facility] HOLDINGS M549 DORSALGIA 11-26-2015 [facility] UNSPECIFIED [facility]I HOLDINGS I2510 ASHD TETLIN 10-15-2015 [place] CORONARY MEDICAL ARTERY W/O IMAGING ASS ANGINA PECTORIS R0989 OTH SPEC SX 10-15-2015 [place] & SIGNS MEDICAL INVLV THE IMAGING ASS CIRC & RESP SYS E611 IRON 10-07-2015 [facility]STICS INCORPORAT M545 LOW BACK 10-07-2015 A C TROY PAIN [facility] [id number] PAIN IN 08-06-2015 [facility] RIGHT HIP [facility] HOLDINGS R296 REPEATED 06-06-2015 [employer] G250 ESSENTIAL 05-13-2015 [facility] Medications Na ND Rx Da [...] -2 -2 0. D 66 SS ti PR 63 0- 8- 00 CA 58 ON ve N 79 20 20 0 RE 02 D3 [address] 1 PH EP 2, AR HE 00 MA N 0 CY A UN IT LL C SO FT GE L 00 07 07 0 18 18 ME 14 BE Ac TA 90 -2 -2 0. D 67 SS ti PR 44 7- 7- 00 CA 72 ON ve N 21 20 20 0 RE 90 B- [address] 12 3 PH EP AR HE 1, MA N 00 CY A 0 MC LL G C TA BL ET 00 07 07 0 10 10 ME 14 BE Ac TA 53 -2 -2 0. D 63 SS ti PR 63 0- 0- 00 CA 48 ON ve N 79 20 20 0 RE 12 D3 [address] 1 PH EP 2, AR HE 00 MA N 0 CY A UN IT LL C SO FT GE L 00 12 01 0 60 6 ME 12 BE Ac TA 53 -2 -2 .0 D 05 SS ti PR 63 9- 5- 00 CA 55 ON [...] 9- 8- .0 CA 14 ON ve RI 04 20 20 00 RE 37 OT [address] EC 4 PH EP T AR HE CR MA N EA CY A M LL C BA 11 12 12 0 14 15 ME 11 BE Ac ZA 70 -2 -2 20 D 97 SS ti 10 9- 9- .0 CA 38 ON ve RI 04 20 20 00 RE 56 OT [...] -2 -2 0. D 97 SS ti PR 63 9- 9- 00 CA 38 ON [...] Procedure DOS Code Location Performer Comment SBSQ 52567 [facility] 7 PHYSICIAN CARE/DAY S GROUP 15 MINUTES SBSQ 14152 [facility] 7 PHYSICIAN CARE/DAY S GROUP 15 MINUTES INITIAL 20687 [facility] 7 PHYSICIAN CARE/DAY S GROUP 70 MINUTES CATH PLMT 64408 [facility] L 7 PHYSICIAN HRT/ARTS/ S GROUP GRFTS WNJX & ANGIO IMG S&I PRQ 70154 [facility] TRLUML 7 PHYSICIAN CORONARY S GROUP STENT W/ANGIO ONE ART/BRNCH ECG 69445 AISHA ANDERSON ROUTINE 7 PHYSICIAN ECG S, PLLC W/LEAST 12 LDS I&R ONLY ADMINISTR G0008 A Adonis HUNTER ATION OF 7 [facility] INFLUENZA PSC VIRUS VACCINE RADIOLOGI 50115 [facility] C 7 [facility] EXAMINATI INC INC ON TIBIA & FIBULA 2 VIEWS IIV 41810 A C ELSA VACCINE 7 [facility] PRESERV PSC FREE INCREASED AG CONTENT IM DRESSING 90737 A Adonis HUNTER CHANGE 7 [facility] [place] UNDER PSC ANESTHESI A CUL BACT 77774 [facility] XCPT 7 [facility] URINE INC INC BLOOD/STO OL AEROBIC ISOL COLLECTIO 74716 [facility] N VENOUS 7 [facility] BLOOD INC INC VENIPUNCT URE BLOOD 89731 [facility] COUNT 7 [facility] COMPLETE INC INC AUTO&AUTO DIFRNTL WBC SUSCEPTIB 18397 [facility] LTY STDY 7 [facility] ANTIMICRB INC INC IAL MICRO/AGA R DILUTJ CUL BACT 75003 [facility] AEROBIC 7 [facility] ADDL INC INC METHS DEFINITIV E EA ISOL BLOOD 20614 A Adonis HUNTER COUNT 7 [facility] [place] COMPLETE PSC AUTO&AUTO DIFRNTL WBC INJECTION J3301 A Adonis HUNTER 7 [facility] TRIAMCINO PSC LONE ACETONIDE NOS 10 MG COLLECTIO 90862 A Adonis HUNTER N VENOUS 7 [facility] [place] BLOOD PSC VENIPUNCT URE THERAPEUT 29478 Yakov Adonis HUNTER IC 7 [facility] [place] PROPHYLAC PSC TIC/DX INJECTION SUBQ/IM INJECTION J3420 Yakov dAonis HUNTER VIT B-12 7 [place] PSC CYANOCOBA ALETA TO 1000 MCG INJECTION J1030 Yakov Adonis HUNTER 7 [facility] METHYLPRE PSC DNISOLONE ACETATE 40 MG AMB A0427 [facility] SERVICE 7 AMBULANCE AMBULANCE ALS SERVICE SERVICE EMERGENCY TRANSPORT LEVEL 1 SMPL RPR 51110 [facility] SCALP/NEC 7 [facility] K/AX/GWENDOLYN INC INC T/TRUNK 12.6-20.0 CM IM ADM 07765 [facility] PRQ ID 7 [facility] SUBQ/IM INC INC NJXS 1 VACCINE TDAP 04219 [facility] VACCINE 7 7 [facility] YRS/> IM INC INC GROUND A0425 [facility] 7 AMBULANCE AMBULANCE PER SERVICE SERVICE STATUTE MILE O2 CONC 1 E1390 [facility]ELO DEANGELO DEL PORT 7 MANOR MANOR 85%/>02 INC- INC- CONC AT RUST FLW RATE CYANOCOBA 09293 COMBIN[facility] COMBINED ALETA 7 PHYSICIAN PHYSICIAN VITAMIN S LA S LA B-[address] MED 7 PHYSICIAN PHYSICIAN NEC LAB S LA S LA SPEC; PRORAT ACTL MILE BLOOD 43619 COM[facility] COMBINED COUNT 7 PHYSICIAN PHYSICIAN COMPLETE S LA S LA AUTO&AUTO DIFRNTL WBC BASIC 64519 COMBIN[facility] COMBINED METABOLIC 7 PHYSICIAN PHYSICIAN PANEL S LA S LA CALCIUM TOTAL COLLECTIO 37460 COMBINED COMBINED N VENOUS 7 PHYSICIAN PHYSICIAN BLOOD S LA S LA VENIPUNCT URE O2 CONC 1 E1390 DEANGELO DEANGELO DEL PORT 7 MANOR MANOR 85%/>02 INC- INC- CONC AT RUST FLW RATE GROUND A0425 [facility] 7 AMBULANCE AMBULANCE PER SERVICE SERVICE STATUTE MILE SBSQ 12348 [facility] 7 PHYSICIAN CARE/DAY S GROUP 15 MINUTES AMBULANCE A0428 [facility] SERVICE 7 AMBULANCE AMBULANCE BLS SERVICE SERVICE NONEMERGE NCY TRANSPORT GROUND A0425 [facility] 7 AMBULANCE AMBULANCE PER SERVICE SERVICE STATUTE MILE AMB A0427 [facility] SERVICE 7 AMBULANCE AMBULANCE ALS SERVICE SERVICE [place] [address] ELIZABETH JUAREZ HEAD/BRAI 7 MEDICAL N W/O IMAGING CONTRAST ASS MATERIAL RADIOLOGI 61900 ELIZABETH JUAREZ C 7 MEDICAL EXAMINATI IMAGING ON CHEST ASS SINGLE VIEW FRONTAL ECG 44200 GARY WATTS JR ROUTINE 7 [facility] W/LEAST P 12 LDS I&R ONLY COLLECTIO 03434 [facility] VEGA N VENOUS 7 [facility] BLOOD INC INC VENIPUNCT URE BLOOD 97999 [facility] COUNT 7 [facility] COMPLETE INC INC AUTO&AUTO DIFRNTL WBC URNLS DIP 70248 [facility] VEGA 7 [facility] STICK/TAB INC INC LET REAGENT AUTO MICROSCOP Y COMPREHEN 05447 [facility] SIVE 7 [facility] [address] [facility] THYROID 7 CHIDI CHIDI STIMULATI HOLDINGS [place] [address] [facility]Y THYROID 7 CHIDI CHIDI STIMULATI HOLDINGS [place] [address] [facility] FREE [facility] THYROXINE HOLDINGS HOLDINGS BASIC 46108 [facility] METABOLIC 7 CHIDI CHIDI PANEL HOLDINGS HOLDINGS CALCIUM TOTAL CYANOCOBA 09620 [facility] WILLY ALETA 7 CHIDI CHIDI VITAMIN HOLDINGS HOLDINGS B-12 SEAT E0156 [facility] 7 HOME HOME T WALKER MEDICAL MEDICAL EQUIPME EQUIPME WALKER E0143 [facility] FOLDING 7 HOME HOME WHEELED MEDICAL MEDICAL ADJUSTABL EQUIPME EQUIPME [place] [address] [facility] THYROID 7 CHIDI CHIDI STIMULATI HOLDINGS [place] [address] [facility] FREE 7 [facility] THYROXINE HOLDINGS HOLDINGS BASIC 58438 LAB [facility] LAB WILLY METABOLIC 7 CHIDI CHIDI PANEL HOLDINGS HOLDINGS CALCIUM TOTAL BASIC 87113 LAB [facility]Y METABOLIC 6 CHIDI CHIDI PANEL [place] [address] [facility] LAB WILLY THYROID 6 CHIDI CHIDI STIMULATI HOLD[place] [address] [facility] LAB WILLY THYROID 6 CHIDI CHIDI STIMULATI HOLD[place] [address] LAB [facility] LAB WILLY FREE 6 CHIDI CHIDI THYROXINE HOLDINGS HOLDINGS BASIC 54613 LAB [facility] LAB WILLY METABOLIC 6 CHIDI CHIDI PANEL HOLDINGS HOLDINGS CALCIUM TOTAL CYANOCOBA 68344 LAB [facility] LAB WILLY ALETA 6 CHIDI CHIDI VITAMIN HOLDINGS HOLDINGS B-12 BASIC 72882 LAB [facility] WILLY METABOLIC 6 CHIDI CHIDI PANEL [place] [address] [facility]Y THYROID 6 CHIDI CHIDI STIMULATI HOLD[place] [address] [facility] FREE 6 [facility] THYROXINE HOLDINGS HOLDINGS DUPLEX 44648 [place] [facility] SCAN 6 MEDICAL JONELLE EXTRACRAN IMAGING [place] [address] [facility] FREE 6 DIAGNOSTI DIAGNOSTI THYROXINE CS CS INCORPORA INCORPORA T T COMPREHEN 60978 [facility] SIVE 6 DIAGNOSTI DIAGNOSTI METABOLIC CS [place] [address] [facility] THYROID 6 DIAGNOSTI DIAGNOSTI STIMULATI CS CS NG INCORPORA INCORPORA HORMONE T T TSH INJECTION J1030 A Adonis HUNTER 6 [facility] METHYLPRE PSC DNISOLONE ACETATE 40 MG INJ J0702 A Adonis HUNTER BETAMETHA 6 [facility] SONE PSC ACETATE & PHOSPHATE 3 MG THERAPEUT 10406 A Adonis HUNTER IC 6 [facility] PROPHYLAC PSC TIC/DX INJECTION SUBQ/IM INJECTION J3420 A Adonis HUNTER VIT B-12 6 [facility] PSC CYANOCOBA ALETA TO [address] [place] [address] [facility] FERRITIN 6 DIAGNOSTI DIAGNOSTI CS CS INCORPORA INCORPORA T T BLOOD 15044 [facility] COUNT 6 DIAGNOSTI DIAGNOSTI COMPLETE CS CS AUTO&AUTO INCORPORA INCORPORA DIFRNTL T T WBC CYANOCOBA 08218 [facility] WILL[facility] ALETA 6 CHIDI CHIDI VITAMIN HOLDINGS HOLDINGS B-12 BASIC 20829 [facility] METABOLIC 6 CHIDI CHIDI PANEL HOLD[place] [address] [facility] THYROID 6 CHIDI CHIDI STIMULATI HOLD[place] [address] [facility] FREE 6 CHIDI CHIDI THYROXINE HOLDINGS HOLDINGS Encounters Encounter Start End Date Code Location Performer Type Date OFFICE 16467 A Adonis TAY 7 7 [facility] T VISIT PSC 15 MINUTES EMERGENCY 59991 AISHA ANDERSON DEPT 7 7 [facility] FUNCJ OFF[facility] 68365 A Adonis TAY 7 7 [facility] T VISIT PSC 15 MINUTES HOSPITAL [facility] - 7 7 [facility] OUTPATIEN INC T OFFICE 61189 A Adonis TAY 7 7 [facility] T VISIT PSC 15 MINUTES HOSPITAL [facility] - 7 7 [facility] OUTPATIEN [facility] T EMERGENCY 22270 GARY 7 7 [facility] T VISIT LOW/MODER SEVERITY EMERGENCY 75825 AISHA ROWE 7 7 [facility] S, [facility] T VISIT HIGH/URGE NT SEVERITY OFFICE 45632 A Adonis TAY 7 7 [facility] T VISIT PSC 15 MINUTES HOSPITAL [facility]ARY - 7 7 [facility] OUTPATIEN INC T EMERGENCY 15504 GARY 7 7 [facility] T VISIT HIGH/URGE NT SEVERITY EMERGENCY 41264 AISHA ANDRE 7 7 PHYSICIAN [facility] S, [facility] T VISIT MODERATE SEVERITY [facility] INPATIENT 7 7 [facility] INPATIENT 7 7 [facility] INC- HOSPITAL GARY - 7 7 [facility] OUTPATIEN INC T EMERGENCY 10594 GARY 7 7 [facility]PARTMEN [facility] T VISIT LOW/MODER SEVERITY [facility] GARY - 6 6 [facility] H[facility]P OUTPATIEN [facility] T OFFICE 99419 [facility] 6 [facility] VISIT [facility] 15 MINUTES [facility] 6 6 [facility] - OTHER INC- [facility] 5 5 [facility] - OTHER INC- OFFICE 19713 [facility] 5 5 N T [facility] 45 NEUROLOGY MINUTES
--- OUTSIDE RECORDS SUMMARY | 2017-03-18 20:21 | External Medical Summary Rpt | CCD ---
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 Name Role Phone A Adonis SIMMONS MD [...] Unavailable Unavailable [facility], Unavailable Unavailable [facility] Unavailable Unavailable INC, [facility] Unavailable Unavailable HOSPITAL P, [facility], Unavailable Unavailable [facility] MONICA ANDERSON Unavailable Unavailable [facility] KILPELA, KILPELA Unavailable Unavailable [...] Diagnosis DOS Provider Status I10 ESSENTIAL 02-17-2017 [facility] PRIMARY PHYSICIANS HYPERTENSIO GROUP N I214 NON-ST 02-17-2017 [facility] ELEVATION PHYSICIANS MYOCARDIAL GROUP INFARCTION I255 ISCHEMIC 02-17-2017 [facility] CARDIOMYOPA PHYSICIANS THY GROUP I5020 UNSPECIFIED 02-17-2017 [facility] SYSTOLIC PHYSICIANS CONGESTIVE GROUP HEART FAILURE E785 HYPERLIPIDE 02-15-2017 [facility] MACIEL PHYSICIANS UNSPECIFIED GROUP [id number] ASHD VENETIE 02-15-2017 [facility] COR ART PHYSICIANS W/UNSTABLE GROUP ANGINA PECTORIS I6529 OCCLUSION & 02-15-2017 [facility] STENOSIS PHYSICIANS UNSPECIFIED GROUP CAROTID ARTERY N183 CHRONIC 02-15-2017 [facility] KIDNEY PHYSICIANS DISEASE GROUP STAGE 3 MODERATE 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 [facility] PHYSICIANS AORTOCORONA GROUP RY BYPASS GRAFT R410 DISORIENTAT 02-14-2017 [facility] ION PHYSICIANS, UNSPECIFIED PLLC R7989 OTHER SPEC 02-14-2017 [facility] ABNORMAL PHYSICIANS, FINDINGS PLLC BLOOD CHEMISTRY [id number] LACERATION 02-04-2017 A Adonis SIMMONS W/O [facility] PSC BODY LT LOW LEG SBSQT ENC [id number] UNS INJURY 02-04-2017 [facility] LEG INC SUBSEQUENT ENCOUNTER [id number] FALL FROM 02-04-2017 A Adonis VELASQUEZ MD PSC SUBSEQUENT ENCOUNTER Z23 ENCOUNTER 02-04-2017 A Adonis CONWAY MD PSC IMMUNIZATIO N D649 ANEMIA 01-23-2017 [facility] UNSPECIFIED PHYSICIANS, PLLC [id number] LACERATION 01-23-2017 [facility] W/O FOREIGN PHYSICIANS, BODY LT PLLC LOW LEG INIT ENC E06390 OTHER LONG 01-23-2017 [facility] CURRENT INC DRUG THERAPY E538 DEFICIENCY 01-20-2017 A Adonis SIMMONS OF [place] [facility] PSC SPECIFIED B GROUP VITAMINS M1990 UNSPECIFIED 01-20-2017 A Adonis SIMMONS MD PSC OSTEOARTHRI TIS UNSPECIFIED SITE [id number] OTHER SPEC 01-19-2017 [facility]JURIES [facility] AMBULANCE [...] G20 PARKINSONS 12-23-2016 [facility] DIS[facility] SERVICE M82159 ASHD VENETIE 12-21-2016 [facility] W/UNS HOSPITAL P ANGINA PECTORIS S38090 ATHEROSCLER 12-21-2016 [facility] P ARTERY CABG W/UNS AP R079 CHEST PAIN 12-21-2016 [facility] R531 WEAKNESS 12-21-2016 [facility] P R5383 OTHER 12-21-2016 [facility] E039 HYPOTHYROID 12-08-2016 [facility] ISM [facility] UNSPECIFIED HOLDINGS E782 MIXED 11-17-2016 [facility] HYPERLIPIDE [facility] MACIEL HOLDINGS Z9181 HISTORY OF 08-18-2016 [facility] M542 CERVICALGIA 11-26-2015 [facility] HOLDINGS M549 DORSALGIA 11-26-2015 [facility] UNSPECIFIED [facility] HOLDINGS I2510 ASHD VENETIE 10-15-2015 [facility] CORONARY MEDICAL ARTERY W/O IMAGING ASS ANGINA PECTORIS R0989 OTH SPEC SX 10-15-2015 [facility]NS [facility] INVLV THE IMAGING ASS CIRC & RESP SYS E611 IRON 10-07-2015 [facility] DEFICIENCY DIAGNOSTICS INCORPORAT M545 LOW BACK 10-07-2015 A C [facility] PAIN [facility] M28281 PAIN IN 08-06-2015 [facility] RIGHT HIP [facility] HOLDINGS R296 REPEATED 06-06-2015 [employer]- G250 ESSENTIAL 05-13-2015 [facility] Medications Na ND Rx Da [...] -2 -2 0. D 66 SS ti PA 63 0- 8- 00 CA 58 ON ve N 79 20 20 0 RE 02 D3 [address] 1 PH EP 2, AR HE 00 MA N 0 CY A UN IT LL C SO FT GE L 00 07 07 0 18 18 ME 14 BE Ac TA 90 -2 -2 0. D 67 SS ti PA 44 7- 7- 00 CA 72 ON ve N 21 20 20 0 RE 90 B- [address] 12 3 PH EP AR HE 1, MA N 00 CY A 0 MC LL G C TA BL ET 00 07 07 0 10 10 ME 14 BE Ac TA 53 -2 -2 0. D 63 SS ti PA 63 0- 0- 00 CA 48 ON ve N 79 20 20 0 RE 12 D3 [address] 1 PH EP 2, AR HE 00 MA N 0 CY A UN IT LL C SO FT GE L 00 12 01 0 60 6 ME 12 BE Ac TA 53 -2 -2 .0 D 05 SS ti PA 63 9- 5- 00 CA 55 ON [...] 9- 8- .0 CA 14 ON ve NJ 04 20 20 00 RE 37 OT [address] EC 4 PH EP T AR HE CR MA N EA CY A M LL C BA 11 12 12 0 14 15 ME 11 BE Ac ZA 70 -2 -2 20 D 97 SS ti 10 9- 9- .0 CA 38 ON ve [place] 04 20 20 00 RE 56 OT [...] -2 -2 0. D 97 SS ti PA 63 9- 9- 00 CA 38 ON [...] Procedure DOS Code Location Performer Comment SBSQ 82068 [facility] 7 PHYSICIAN CARE/DAY S GROUP 15 MINUTES SBSQ 33089 [facility] 7 PHYSICIAN CARE/DAY S GROUP 15 MINUTES INITIAL 54032 [facility] 7 PHYSICIAN CARE/DAY S GROUP 70 MINUTES CATH PLMT 38926 [facility] L 7 PHYSICIAN HRT/ARTS/ S GROUP GRFTS WNJX & ANGIO IMG S&I PRQ 59612 [facility] TRLUML 7 PHYSICIAN CORONARY S GROUP STENT W/ANGIO ONE ART/BRNCH ECG 52847 [facility] ANDERSON ROUTINE 7 PHYSICIAN ECG S, PLLC W/LEAST 12 LDS I&R ONLY ADMINISTR G0008 A Adonis HUNTER ATION OF 7 [facility] INFLUENZA PSC VIRUS VACCINE RADIOLOGI 04986 [facility] C 7 [facility] EXAMINATI INC INC ON TIBIA & FIBULA 2 VIEWS IIV 19354 A C ELSA VACCINE 7 [facility] PRESERV PSC FREE INCREASED AG CONTENT IM DRESSING 07611 A Adonis HUNTER CHANGE 7 [facility] [place] UNDER PSC ANESTHESI A CUL BACT 11290 [facility] XCPT 7 [facility] URINE INC INC BLOOD/STO OL AEROBIC ISOL COLLECTIO 74895 [facility] N VENOUS 7 [facility] BLOOD INC INC VENIPUNCT URE BLOOD 76565 [facility] COUNT 7 [facility] COMPLETE INC INC AUTO&AUTO DIFRNTL WBC SUSCEPTIB 02827 [facility] LTY STDY 7 [facility] ANTIMICRB INC INC IAL MICRO/AGA R DILUTJ CUL BACT 45151 [facility] AEROBIC 7 [facility] ADDL INC INC METHS DEFINITIV E EA ISOL BLOOD 73037 A Adonis HUNTER COUNT 7 [facility] COMPLETE PSC AUTO&AUTO DIFRNTL WBC INJECTION J3301 A Adonis HUNTER 7 [facility] [place] TRIAMCINO PSC LONE ACETONIDE NOS 10 MG COLLECTIO 20676 A Adonis HUNTER N VENOUS 7 [facility] BLOOD PSC VENIPUNCT URE THERAPEUT 22649 Yakov Adonis HUNTER IC 7 [facility] PROPHYLAC PSC TIC/DX INJECTION SUBQ/IM INJECTION J3420 Yakov Adonis HUNTER VIT B-12 7 [facility] PSC CYANOCOBA ALETA TO 1000 MCG INJECTION J1030 Yakov Adonis HUNTER 7 [place] METHYLPRE PSC DNISOLONE ACETATE 40 MG AMB A0427 [facility] 7 AMBULANCE AMBULANCE ALS SERVICE SERVICE EMERGENCY TRANSPORT LEVEL 1 SMPL RPR 22035 [facility] SCALP/NEC 7 [facility] K/AX/GWENDOLYN INC INC T/TRUNK 12.6-20.0 CM IM ADM 37152 [facility] PRQ ID 7 [facility] SUBQ/IM INC INC NJXS 1 VACCINE TDAP 22787 [facility] VACCINE 7 7 [facility] YRS/> IM INC INC GROUND A0425 [facility] 7 AMBULANCE AMBULANCE PER SERVICE SERVICE STATUTE MILE O2 CONC 1 E1390 [facility]O DEANGELO DEL PORT 7 [facility] MAN[facility] 85%/>02 INC- INC- CONC AT [facility] FLW RATE CYANOCOBA 92964 COMBINED COMBINED ALETA 7 PHYSICIAN PHYSICIAN VITAMIN S LA S LA B-[address] MED 7 PHYSICIAN PHYSICIAN NEC LAB S LA S LA SPEC; PRORAT ACTL MILE BLOOD 12249 COMBINED COMBINED COUNT 7 PHYSICIAN PHYSICIAN COMPLETE S LA S LA AUTO&AUTO DIFRNTL WBC BASIC 45500 COMBINED COMBINED METABOLIC 7 PHYSICIAN PHYSICIAN PANEL S LA S LA CALCIUM TOTAL COLLECTIO 68750 COMBINED COMBINED N VENOUS 7 PHYSICIAN PHYSICIAN BLOOD S LA S LA VENIPUNCT URE O2 CONC 1 E1390 [facility]ELO DEANGELO DEL [place] 7 MAN[facility] MANOR 85%/>02 INC- INC- CONC AT [facility] FLW RATE GROUND A0425 [facility] 7 AMBULANCE AMBULANCE PER SERVICE SERVICE STATUTE MILE SBSQ 65199 [facility] 7 PHYSICIAN CARE/DAY S GROUP 15 MINUTES AMBULANCE A0428 [facility] 7 AMBULANCE AMBULANCE BLS SERVICE SERVICE NONEMERGE NCY TRANSPORT GROUND A0425 [facility] 7 AMBULANCE AMBULANCE PER SERVICE SERVICE STATUTE MILE AMB A0427 [facility] 7 AMBULANCE AMBULANCE ALS SERVICE SERVICE [place] [address] ELIZABETH JUAREZ HEAD/BRAI 7 MEDICAL N W/O IMAGING CONTRAST ASS MATERIAL RADIOLOGI 78215 ELIZABETH JUAREZ C 7 MEDICAL EXAMINATI IMAGING ON CHEST ASS SINGLE VIEW FRONTAL ECG 29433 GARY WATTS JR ROUTINE 7 [facility] W/LEAST P 12 LDS I&R ONLY COLLECTIO 02553 [facility] N VENOUS 7 [facility] BLOOD INC INC VENIPUNCT URE BLOOD 78986 [facility] COUNT 7 [facility] COMPLETE INC INC AUTO&AUTO DIFRNTL WBC URNLS DIP 11912 [facility] 7 [facility] STICK/TAB INC INC LET REAGENT AUTO MICROSCOP Y COMPREHEN 40150 [facility] SIVE 7 [facility] [address] [facility] THYROID 7 CH[facility] CH[facility] STIMULATI HOLDINGS [place] [address] [facility] THYROID 7 CHIDI CHIDI STIMULATI HOLD[place] [address] LAB [facility] WILLY FREE 7 [facility] THYROXINE HOLDINGS HOLDINGS BASIC 42093 LAB [facility] WILLY METABOLIC 7 CHIDI CHIDI PANEL HOLDINGS HOLDINGS CALCIUM TOTAL CYANOCOBA 58177 [facility] LAB WILLY ALETA 7 CHIDI CHIDI VITAMIN HOLDINGS HOLDINGS B-12 SEAT E0156 [facility] ATTACHMEN 7 HOME HOME T WALKER MEDICAL MEDICAL EQUIPME EQUIPME WALKER E0143 [facility] FOLDING 7 HOME HOME WHEELED MEDICAL MEDICAL ADJUSTABL EQUIPME EQUIPME [place] [address] [facility] THYROID 7 CHIDI CHIDI STIMULATI HOLDINGS [place] [address] [facility]Y FREE 7 [facility] THYROXINE HOLDINGS HOLDINGS BASIC 59273 LAB [facility] LAB WILLY METABOLIC 7 CHIDI CHIDI PANEL HOLDINGS HOLDINGS CALCIUM TOTAL BASIC 85657 LAB [facility]Y METABOLIC 6 CHIDI CHIDI PANEL [place] [address] [facility] LAB WILLY THYROID 6 CHIDI CHIDI STIMULATI HOLD[place] [address] LAB [facility] WILLY THYROID 6 CHIDI CHIDI STIMULATI HOLD[place] [address] LAB [facility] LAB WILLY FREE 6 CHIDI CHIDI THYROXINE HOLDINGS HOLDINGS BASIC 03449 LAB [facility] WILLY METABOLIC 6 CHIDI CHIDI PANEL HOLDINGS HOLDINGS CALCIUM TOTAL CYANOCOBA 44818 LAB [facility] LAB WILLY ALETA 6 CHIDI CHIDI VITAMIN HOLDINGS HOLDINGS B-12 BASIC 66619 LAB [facility]Y METABOLIC 6 CHIDI CHIDI PANEL [place] [address] [facility]Y THYROID 6 CHIDI CHIDI STIMULATI [place] [address] LAB [facility] FREE 6 [facility] THYROXINE HOLDINGS HOLDINGS DUPLEX 73310 [facility] MRAY SCAN 6 MEDICAL JONELLE EXTRACRAN IMAGING [place] [address] [facility] FREE 6 DIAGNOSTI DIAGNOSTI THYROXINE CS CS INCORPORA INCORPORA T T COMPREHEN 24091 [facility] SIVE 6 DIAGNOSTI DIAGNOSTI METABOLIC CS [place] [address] [facility] THYROID 6 DIAGNOSTI DIAGNOSTI STIMULATI CS CS NG INCORPORA INCORPORA HORMONE T T TSH INJECTION J1030 A Adonis HUNTER 6 [facility] METHYLPRE PSC DNISOLONE ACETATE 40 MG INJ J0702 A Adonis HUNTER BETAMETHA 6 [facility] SONE PSC ACETATE & PHOSPHATE 3 MG THERAPEUT 74840 A Adonis HUNTER IC 6 [facility] PROPHYLAC PSC TIC/DX INJECTION SUBQ/IM INJECTION J3420 A Adonis HUNTER VIT B-12 6 [facility] PSC CYANOCOBA ALETA TO [address] [place] [address] [facility] FERRITIN 6 DIAGNOSTI DIAGNOSTI CS CS INCORPORA INCORPORA T T BLOOD 46348 [facility] COUNT 6 DIAGNOSTI DIAGNOSTI COMPLETE CS CS AUTO&AUTO INCORPORA INCORPORA DIFRNTL T T WBC CYANOCOBA 36623 [facility] ALETA 6 CH[facility] CHIDI VITAMIN HOLDINGS HOLDINGS B-12 BASIC 03367 [facility] METABOLIC 6 CHIDI CHIDI PANEL HOLD[place] [address] [facility] THYROID 6 [facility] CHIDI STIMULATI HOLD[place] [address] [facility] FREE 6 [facility] CH[facility]I THYROXINE HOLDINGS HOLDINGS Encounters Encounter Start End Date Code Location Performer Type Date OFFICE 24991 A Adonis TAY 7 7 [facility] T VISIT PSC 15 MINUTES EMERGENCY 70153 [facility] ANDERSON DEPT 7 7 [facility] FUNCJ OFF[facility] 39516 A Adonis TAY 7 7 [facility] T VISIT PSC 15 MINUTES HOSPITAL [facility] - 7 7 [facility] OUTPATIEN INC T OFFICE 80794 A Adonis TAY 7 7 [facility] [place] T VISIT PSC 15 MINUTES HOSPITAL [facility] - 7 7 [facility] OUTPATIEN [facility] T EMERGENCY 20750 GARY 7 7 [facility] T VISIT LOW/MODER SEVERITY EMERGENCY 22750 AISHA ROWE 7 7 PHYSICIAN [facility] S, [facility] T VISIT HIGH/URGE NT SEVERITY OFFICE 44283 A Adonis TAY 7 7 [facility] T VISIT PSC 15 MINUTES HOSPITAL [facility] - 7 7 [facility] OUTPATIEN INC T EMERGENCY 50851 GARY 7 7 [facility] T VISIT HIGH/URGE NT SEVERITY EMERGENCY 72375 AISHA ANDRE 7 7 PHYSICIAN [facility] S, [facility] T VISIT MODERATE SEVERITY [facility] INPATIENT 7 7 [facility] ANDERSON INPATIENT 7 7 [facility]- H[facility]PITAL [facility] - 7 7 [facility] OUTPATIEN INC T EMERGENCY 99603 [facility] 7 7 [facility] T VISIT LOW/MODER SEVERITY [facility]ARY - 6 6 [facility] OUTPATIEN [facility] T OFFICE 83990 Y[facility] VISIT [facility] 15 MINUTES [facility] 6 6 [facility] - OTHER [facility]- [facility] 5 5 [facility] - OTHER INC- OFFICE 42266 [facility] 5 N [facility] 45 NEUROLOGY MINUTES
--- OUTSIDE RECORDS SUMMARY | 2017-03-18 20:23 | External Medical Summary Rpt ---
Author Author VIRGINIA Fernández, [facility] [employer] Organization [facility] [employer] Address Unknown Phone Unavailable Results Cardiac enzymes Observa Value Referen Units Interpr Notes Date tion ce etation Range Creatine 0 - 4.0 U/L Normal No Mar 8 kinase.MB informati 2017 /Creatine on in 12:34 PM source kinase.to data sergio [Ratio] in Serum or Plasma Creatine 0.0 - 3.6 ng/mL Normal No Mar 8 kinase.MB informati 2017 on in 12:34 PM [Mass/vol source ume] in data Serum or Plasma Creatine 26 - 192 U/L Low No Mar 8 kinase informati 2017 [Enzymati on in 12:34 PM c source activity/ data volume] in Serum or Plasma Troponin 0.00 - ng/mL Normal No Mar 8 I.cardiac 0.06 informati 2017 on in 12:34 PM [Mass/vol source ume] in data Serum or Plasma Comprehensive metabolic 2000 panel in Serum or Plasma Observa Value Referen Units Interpr Notes Date tion ce etation Range Albumin/G 1.1 - 1.8 No Low No Mar 8 lobulin informati informati 2016 [Mass on in on in 12:34 PM ratio] in source source Serum or data data Plasma Albumin 3.4 - 5.0 gm/dL Low No Mar 8 [Mass/vol informati 2016 ume] in on in 12:34 PM Serum or source Plasma data Alkaline 46 - 116 U/L Normal No Mar 8 phosphata informati 2017 se on in 12:34 PM [Enzymati source c data activity/ volume] in Serum or Plasma Bilirubin 0.2 - 1.0 mg/dL Normal No Mar 8 .total informati 2017 [Mass/vol on in 12:34 PM ume] in source Serum or data Plasma Urea 7 - 18 mg/dL High No Mar 8 nitrogen informati 2017 [Mass/vol on in 12:34 PM ume] in source Serum or data Plasma Calcium 8.5 - mg/dL Normal No Mar 8 [Mass/vol 10.1 informati 2017 ume] in on in 12:34 PM Serum or source Plasma data Chloride 98 - 107 mmoL/L Normal No Oct 8 [Moles/vo informati 2017 lume] in on in 12:34 PM Serum or source Plasma data Carbon 21.0 - mmoL/L Normal No Oct 8 dioxide, 32.0 informati 2017 total on in 12:34 PM [Moles/vo source lume] in data Serum or Plasma Creatinin 0.55 - mg/dL High No Oct 8 e 1.02 informati 2017 [Mass/vol on in 12:34 PM ume] in source Serum or data Plasma Creatinin 50 - 200 ML/MIN Low No Oct 8 e renal informati 2017 clearance on in 12:34 PM source predicted data by Cockcroft -Gault formula Estimated 59- ML/MIN Low REFERENCE Oct 8 RANGE: 2017 glomerula >60 12:34 PM r ML/MIN/1. filtratio 73 SQUARE n rate METERSIf (GF this patient is -A merican, then multiply theresult by 1.210. Globulin 1.3 - 3.2 gm/dL Normal No Oct 8 [Mass/vol informati 2016 ume] in on in 12:34 PM Serum source data Glucose 74 - 106 mg/dL High No Oct 8 [Mass/vol informati 2017 ume] in on in 12:34 PM Serum or source Plasma data Potassium 3.5 - 5.1 mmoL/L Normal No Oct 8 informati 2017 [Moles/vo on in 12:34 PM lume] in source Serum or data Plasma Sodium 136 - 145 mmoL/L Normal No Oct 8 [Moles/vo informati 2017 lume] in on in 12:34 PM Serum or source Plasma data Aspartate 15 - 37 U/L Low No Oct 8 informati 2017 aminotran on in 12:34 PM sferase source [Enzymati data c activity/ volume] in Serum or Plasma Alanine 12 - 78 U/L Low No Oct 8 aminotran informati 2017 sferase on in 12:34 PM [Enzymati source c data activity/ volume] in Serum or Plasma Protein 6.4 - 8.2 gm/dL Low No Oct 8 [Mass/vol informati 2017 ume] in on in 12:34 PM Serum or source Plasma data CBC W Auto Differential panel in Blood Observa Value Referen Units Interpr Notes Date tion ce etation Range Basophils 0 - 0.2 K/MM3 Normal No Mar 13 inform2016 [#/volume on in 12:34 PM ] in source Blood by data Automated count Basophils 0.1 - 2.0 % Normal No Mar 13 / inform2016 leukocyte on in 12:34 PM s in source Blood by data Automated count Eosinophi 0.0 - 0.4 K/mm3 Normal No Mar 13 ls 2016 [#/volume on in 12:34 PM ] in source Blood by data Automated count Eosinophi 0.1 - % Normal No Mar 13 ls/100 12.0 inform2016 leukocyte on in 12:34 PM s in source Blood by data Automated count Granulocy 1.8 - 7.8 K/mm3 Normal No Mar 13 olya inform2016 [#/volume on in 12:34 PM ] in source Blood by data Automated count Granulocy 37.0 - % Normal No Mar 13 olya/100 80.0 inform2016 leukocyte on in 12:34 PM s in source Blood by data Automated count Hematocri 37.0 - % Low No Mar 13 t [Volume 47.0 2016 on in 12:34 PM Fraction] source of Blood data Hemoglobi 12.2 - g/dL Low No Mar 13 n 16.2 inform2016 [Mass/vol on in 12:34 PM ume] in source Blood data Lymphocyt 0.7 - 4.5 K/mm3 Normal No Mar 13 es 2016 [#/volume on in 12:34 PM ] in source Unspecifi data ed specimen by Automated count Lymphocyt 10 - 50.0 % Low No Mar 13 es 2016 [#/volume on in 12:34 PM ] in source Unspecifi data ed specimen by Automated count Erythrocy 27 - 31.2 pg Normal No Mar 13 te mean 2016 corpuscul on in 12:34 PM ar source hemoglobi data n [Entitic mass] Erythrocy 31.8 - g/dl Low No Mar 13 te mean 35.4 inform2016 corpuscul on in 12:34 PM ar source hemoglobi data n concentra tion [Mass/vol ume] by Automated count Erythrocy 82.2 - fl Normal No Mar 13 te mean 97.8 inform2016 corpuscul on in 12:34 PM ar volume source [Entitic data volume] by Automated count Monocytes 0.1 - 1.0 K/mm3 Normal No Mar 8 informati 2016 [#/volume on in 12:34 PM ] in source Blood by data Automated count Monocytes 1.7 - 9.3 % Normal No Mar 8 /100 informati 2016 leukocyte on in 12:34 PM s in source Blood by data Automated count Platelet 7.4 - fl Normal No Mar 8 mean 10.4 informati 2016 volume on in 12:34 PM [Entitic source volume] data in Blood by Automated count Platelets 142 - 424 K/mm3 Normal No Mar 13 informati 2016 [#/volume on in 12:34 PM ] in source Blood data Erythrocy 4.2 - 5.4 M/mm3 Low No Mar 8 olya informati 2016 [#/volume on in 12:34 PM ] in source Amniotic data fluid Erythrocy 11.5 - % Normal No Mar 13 te 17.5 informati 2016 distribut on in 12:34 PM ion width source [Entitic data volume] by Automated count Leukocyte 4.8 - K/MM3 Normal No Mar 13 s 10.8 informati 2016 [#/volume on in 12:34 PM ] in source Blood data Basic metabolic [...] Low No Sep 15 e renal informati 2016 6:45 clearance on in AM source predicted data by Cockcroft -Gault formula Estimated 59- ML/MIN Low REFERENCE Sep 15 RANGE: 2016 6:45 glomerula >60 AM r ML/MIN/1. filtratio [...] mg/dL High No Sep 14 nitrogen informati 2017 6:00 [Mass/vol on in AM ume] in [...] Normal No Sep 14 dioxide, 32.0 informati 2017 6:00 total on in AM [Moles/vo source lume] in data Serum or Plasma Creatinin 0.55 - mg/dL High No Sep 14 e 1.02 informati 2017 6:00 [Mass/vol on in AM ume] in source Serum or data Plasma Creatinin 50 - 200 ML/MIN Low No Sep 14 e renal informati 2017 6:00 clearance on in AM source predicted data by Cockcroft -Gault formula Estimated 59- ML/MIN Low REFERENCE Sep 14 RANGE: 2017 6:00 glomerula >60 AM r ML/MIN/1. filtratio 73 SQUARE n rate METERSIf (GF this patient is -A merican, then multiply theresult by 1.210. Glucose 74 - 106 mg/dL Normal No Sep 14 [Mass/vol informati 2017 6:00 ume] in on in AM Serum or source Plasma data Potassium 3.5 - 5.1 mmoL/L Normal No Sep 14 informati 2017 6:00 [Moles/vo on in AM lume] in source Serum or data Plasma Sodium 136 - 145 mmoL/L Normal No Sep 14 [Moles/vo informati 2016 6:00 lume] in on in AM Serum or source Plasma data CBC W Auto Differential panel in Blood Observa Value Referen Units Interpr Notes Date tion ce etation Range Basophils 0 - 0.2 K/MM3 Normal No Sep 14 informati 2017 6:00 [#/volume on in AM ] in source Blood by data Automated count Basophils 0.1 - 2.0 % Normal No Sep 14 /100 informati 2017 6:00 leukocyte on in AM [...] K/mm3 Normal No Sep 14 olya informati 2017 6:00 [#/volume on in AM ] in source Blood by data Automated count Granulocy 37.0 - % Normal No Sep 14 olya/100 80.0 informati 2017 6:00 leukocyte on in AM s in source Blood by data Automated count Hematocri 37.0 - % Low No Sep 14 t [Volume 47.0 informati 2017 6:00 on in AM Fraction] source of Blood data Hemoglobi 12.2 - g/dL Low No Sep 14 n 16.2 informati 2017 6:00 [Mass/vol on in AM ume] in source Blood data Lymphocyt 0.7 - 4.5 K/mm3 Normal No Sep 14 es informati 2017 6:00 [#/volume on in AM ] in source Unspecifi data ed specimen by Automated count Lymphocyt 10 - 50.0 % Normal No Sep 14 es informati 2017 [...] - 1.0 K/mm3 Normal No Sep 14 inform2016 6:00 [#/volume on in AM ] in source Blood by data Automated count Monocytes 1.7 - 9.3 % Normal No Sep 14 /100 informati 2016 6:00 leukocyte on in AM s in source Blood by data Automated count Platelet 7.4 - fl Normal No Sep 14 mean 10.4 informati 2016 6:00 volume on in AM [Entitic source volume] data in Blood by Automated count Platelets 142 - 424 K/mm3 No No Sep 14 informati informati 2016 6:00 [#/volume on in on in AM [...] No Sep 14 s 10.8 informati informati 2016 6:00 [#/volume on in on in AM ] in source source Blood data data Lipid 1996 panel in Serum or Plasma Observa Value Referen Units Interpr Notes Date tion ce etation Range COMMENTS TO SUPERVISING CHEF: PER IN PROTOCOL Cholester < 200 mg/dL No No Sep 13 ol informati informati 2017 5:45 [Moles/vo on in on in AM lume] in source source Unspecifi data data ed specimen Cholester 40 - 60 MG/DL Normal No Sep 13 ol in HDL informati 2017 5:45 on in AM [Mass/vol source ume] in data Serum or Plasma Cholester 0 - 130 mg/dL Normal No Sep 13 ol in LDL informati 2017 5:45 on in AM [Mass/vol [...] mg/dL High No Sep 13 nitrogen informati 2017 5:45 [Mass/vol on in AM ume] in source Serum or data Plasma Calcium 8.5 - mg/dL Normal No Sep 13 [Mass/vol 10.1 informati 2017 5:45 ume] in on in AM Serum or source Plasma data Chloride 98 - 107 mmoL/L Normal No Sep 13 [Moles/vo informati 2017 5:45 lume] in on in AM Serum or source Plasma data Carbon 21.0 - mmoL/L Normal No Sep 13 dioxide, 32.0 informati 2017 5:45 total on in AM [Moles/vo source lume] in data Serum or Plasma Creatinin 0.55 - mg/dL Normal No Sep 13 e 1.02 informati 2017 5:45 [Mass/vol on in AM ume] in source Serum or data Plasma Creatinin 50 - 200 ML/MIN Low No Sep 13 e renal informati 2017 5:45 clearance on in AM source predicted data by Cockcroft -Gault formula Estimated 59- ML/MIN Low REFERENCE Sep 13 RANGE: 2017 5:45 glomerula >60 AM r ML/MIN/1. filtratio 73 SQUARE n rate METERSIf (GF this patient is -A merican, then multiply theresult by 1.210. Glucose 74 - 106 mg/dL Normal No Sep 13 [Mass/vol informati 2017 5:45 ume] in on in AM Serum or source Plasma data Potassium 3.5 - 5.1 mmoL/L Normal No Sep 13 informati 2017 5:45 [Moles/vo on in AM lume] in source Serum or data Plasma Sodium 136 - 145 mmoL/L Normal No Sep 13 [Moles/vo informati 2017 5:45 lume] in on in AM Serum or source Plasma data Activated clotting time in Blood by Coagulation assay Observa Value Referen Units Interpr Notes Date tion ce etation Range Activated 74 - 125 SEC High No Sep 12 clotting alert informati 2017 time in on in 12:11 PM Blood by source Coagulati data on assay Cardiac enzymes Observa Value Referen Units Interpr Notes Date tion ce etation Range Creatine 0 - 4.0 U/L High No Feb 12 kinase.MB alert informati 2016 6:22 /Creatine on in AM source kinase.to data sergio [Ratio] in Serum or Plasma Creatine 0.0 - 3.6 ng/mL High Feb 15 kinase.MB alert 2016 6:22 CRITICAL AM [Mass/vol RESULTS ume] in Serum or RESU Plasma LTS CALLED TO: TONYA.CAV 02/15/17 0850 Musa,Rich vikash Creatine 26 - 192 U/L Normal No Feb 15 kinase informati 2016 6:22 [Enzymati on in AM c source activity/ data volume] in Serum or Plasma Troponin 0.00 - ng/mL High Feb 15 I.cardiac 0.06 2016 6:22 CRITICAL AM [Mass/vol RESULTS ume] in Serum or RESU Plasma LTS CALLED TO: TONYA.CAV 02/15/17 0850 Musa,Rich vikash> 0.5 IS CONSISTEN T WITH MYOCARDIA L ISCHEMIA OR INFARCTIO N Natriutietic peptide B [Mass/volume] in Serum or Plasma Observa Value Referen Units Interpr Notes Date tion ce etation Range Natriutie 0 - 100 pg/mL High No Feb 15 tic informati 2016 6:22 peptide B on [...] Plasma Calcium 8.5 - mg/dL Normal No Feb 12 [Mass/vol 10.1 informati 2017 6:22 ume] in on in AM Serum or source Plasma data Chloride 98 - 107 mmoL/L Normal No Feb 12 [Moles/vo informati 2016 6:22 lume] in on in AM Serum [...] Low No Sep 12 e renal informati 2016 6:22 clearance on in AM source predicted data by Cockcroft -Gault formula Estimated 59- ML/MIN Low REFERENCE Sep 12 RANGE: 2017 6:22 glomerula >60 AM r ML/MIN/1. filtratio 73 SQUARE n rate METERSIf (GF this patient is -A merican, then multiply theresult by 1.210. Glucose 74 - 106 mg/dL High No Sep 12 [Mass/vol informati 2017 6:22 ume] in on in AM Serum or source Plasma data Potassium 3.5 - 5.1 mmoL/L Normal No Sep 12 informati 2016 6:22 [Moles/vo on in AM lume] in [...] % Normal No Sep 12 /100 informati 2016 6:22 leukocyte on in AM s in source Blood by data Automated count Eosinophi 0.0 - 0.4 K/mm3 Normal No Sep 12 ls informati 2017 6:22 [#/volume on in AM ] in source Blood by data Automated count Eosinophi 0.1 - % Normal No Sep 12 ls/100 12.0 informati 2016 6:22 leukocyte on in AM s in [...] % Normal No Sep 11 /100 informati 2017 6:30 leukocyte on in PM [...] No Sep 11 te mean 97.8 informati 2016 6:30 corpuscul on in PM ar volume source [Entitic data volume] by Automated count Monocytes 0.1 - 1.0 K/mm3 Normal No Sep 11 informati 2016 6:30 [#/volume on in PM [...] 424 K/mm3 Normal No Sep 11 informati 2016 6:30 [#/volume on in PM [...] Serum or RESU Plasma LTS CALLED TO: TONYA.CLA 02/14/171811 Jeffery,[place] nda> 0.5 IS CONSISTEN T WITH MYOCARDIA [...] Normal No Sep 11 [Mass/vol 10.1 informati 2017 5:30 ume] in on in [...] Low No Sep 11 e renal informati 2017 5:30 clearance on in PM source predicted [...] 5.1 mmoL/L Normal No Sep 11 informati 2016 5:30 [Moles/vo on in PM lume] in source Serum or data Plasma Sodium 136 - 145 mmoL/L Normal No Sep 11 [Moles/vo informati 2017 5:30 lume] in on in PM Serum or source Plasma data Aspartate 15 - 37 U/L Low No Sep 11 informati 2016 5:30 aminotran on in PM sferase source [...] No Sep 11 a informa informa informa 2016 [Presen tion [...] Normal No Sep 11 Urine informati informati 2016 5:00 on in on in PM source source data data Protein NEG mg/dL No No Sep 11 [Mass/vol ati inform2016 5:00 ume] in on in on in PM Urine by source source Automated data data test strip Specific 1.005 - No Normal No Feb 11 gravity 1.030 informati informati 2016 5:00 of Urine on in on in PM source source data data Urobili 0.2 NEG E.U./dL No No Feb 11 nogen informa informa 2016 [Presen tion in tion in 5:00 PM ce] in source source Urine data data by Test strip CBC W Auto Differential panel in Blood Observa Value Referen Units Interpr Notes Date tion ce etation Range Basophils 0 - 0.2 K/MM3 Normal No Jan 232016 [#/volume on in 11:00 AM ] in source Blood by data Automated count Basophils 0.1 - 2.0 % Normal No Jan 23 inform2016 leukocyte on in 11:00 AM s in source Blood by data Automated count Eosinophi 0.0 - 0.4 K/mm3 Normal No Jan 23 ls 2016 [#/volume on in 11:00 AM ] in source Blood by data Automated count Eosinophi 0.1 - % Normal No Jan 23 ls/100 12.0 inform2016 leukocyte on in 11:00 AM s in source Blood by data Automated count Granulocy 1.8 - 7.8 K/mm3 Normal No Jan 23 olya 2016 [#/volume on in 11:00 AM ] in source Blood by data Automated count Granulocy 37.0 - % Normal No Jan 23 olya/100 80.0 2016 leukocyte on in 11:00 AM s in source Blood by data Automated count Hematocri 37.0 - % Low No Jan 23 t [Volume 47.0 2016 on in 11:00 AM Fraction] source of Blood data Hemoglobi 12.2 - g/dL Low No Jan 23 n 16.2 2016 [Mass/vol on in 11:00 AM ume] in source Blood data Lymphocyt 0.7 - 4.5 K/mm3 Normal No Jan 23 es 2016 [#/volume on in 11:00 AM ] in source Unspecifi data ed specimen by Automated count Lymphocyt 10 - 50.0 % Normal No Jan 23 es 2016 [#/volume on in 11:00 AM ] in source Unspecifi data ed specimen by Automated count Erythrocy 27 - 31.2 pg Normal No Jan 23 te mean 2016 corpuscul on in 11:00 AM ar source hemoglobi data n [Entitic mass] Erythrocy 31.8 - g/dl Normal No Jan 23 te mean 35.4 2016 corpuscul on in 11:00 AM ar source hemoglobi data n concentra tion [Mass/vol ume] by Automated count Erythrocy 82.2 - fl Normal No Jan 23 te mean 97.8 2016 corpuscul on in 11:00 AM ar volume source [Entitic data volume] by Automated count Monocytes 0.1 - 1.0 K/mm3 Normal No Jan 232016 [#/volume on in 11:00 AM ] in source Blood by data Automated count Monocytes 1.7 - 9.3 % Normal No Jan 23 /100 2016 leukocyte on in 11:00 AM s in source Blood by data Automated count Platelet 7.4 - fl Normal No Jan 23 mean 10.4 2016 volume on in 11:00 AM [Entitic source volume] data in Blood by Automated count Platelets 142 - 424 K/mm3 Normal No Jan 232016 [#/volume on in 11:00 AM ] in source Blood data Erythrocy 4.2 - 5.4 M/mm3 Low No Jan 23 olya 2016 [#/volume on in 11:00 AM ] in source Amniotic data fluid Erythrocy 11.5 - % Normal No Jan 23 te 17.5 2016 distribut on in 11:00 AM ion width source [Entitic data volume] by Automated count Leukocyte 4.8 - K/MM3 Normal No Jan 23 s 10.8 2016 [#/volume on in 11:00 AM ] [...] Low No Dec 23 e renal informati 2017 6:30 clearance on in AM source predicted [...] No No Dec 22 kinase.MB informati informati 2017 6:20 on in on in AM [Mass/vol [...] - 2.0 % Normal No Dec 22 informati 2016 [...] - 424 K/mm3 Normal No Dec 22 informati 2016 6:20 [#/volume on in AM ] in source Blood data Erythrocy 4.2 - 5.4 M/mm3 Normal No Dec 22 olya informati 2017 6:20 [#/volume on in AM ] in [...] 0.1 - % Normal No Dec 21 ls/100 12.0 informati 2016 5:00 leukocyte on in [...] No Dec 21 t [Volume 47.0 informati 2016 5:00 on in PM Fraction] source of [...] 1.7 - 9.3 % Normal No Dec 21 /100 informati 2016 5:00 leukocyte on in PM s in source Blood by data Automated count Platelet 7.4 - fl Normal No Dec 21 mean 10.4 informati 2016 5:00 volume on in PM [Entitic source volume] data in Blood by Automated count Platelets 142 - 424 K/mm3 Normal No Dec 212016 5:00 [#/volume on in PM ] in source Blood data Erythrocy 4.2 - 5.4 M/mm3 Normal No Dec 21 olya 2016 5:00 [#/volume on in PM ] in source Amniotic data fluid Erythrocy 11.5 - % Normal No Dec 21 te 17.5 informati 2016 5:00 distribut on in PM ion width source [Entitic data volume] by Automated count Leukocyte 4.8 - K/MM3 Normal No Dec 21 s 10.8 ati 2016 5:00 [#/volume on in PM ] in source Blood data CBC W Auto Differential panel in Blood Observa Value Referen Units Interpr Notes Date tion ce etation Range Basophils 0 - 0.2 K/MM3 Normal No Dec 202016 [#/volume on in 11:55 AM ] in source Blood by data Automated count Basophils 0.1 - 2.0 % Normal No Dec 20 /2016 leukocyte on in 11:55 AM s in source Blood by data Automated count Eosinophi 0.0 - 0.4 K/mm3 Normal No Dec 20 ls 2016 [#/volume on in 11:55 AM ] in source Blood by data Automated count Eosinophi 0.1 - % Normal No Dec 20 ls/100 12.0 2016 leukocyte on in 11:55 AM s in source Blood by data Automated count Granulocy 1.8 - 7.8 K/mm3 Normal No Dec 20 olya 2016 [#/volume on in 11:55 AM ] in source Blood by data Automated count Granulocy 37.0 - % Normal No Dec 20 olya/100 80.0 2016 leukocyte on in 11:55 AM s in source Blood by data Automated count Hematocri 37.0 - % Normal No Dec 20 t [Volume 47.0 2016 on in 11:55 AM Fraction] source of Blood data Hemoglobi 12.2 - g/dL Normal No Dec 20 n 16.2 2016 [Mass/vol on in 11:55 AM ume] in source Blood data Lymphocyt 0.7 - 4.5 K/mm3 Normal No Dec 20 es 2016 [#/volume on in 11:55 AM ] in source Unspecifi data ed specimen by Automated count Lymphocyt 10 - 50.0 % Normal No Dec 20 es 2016 [#/volume on in 11:55 AM ] in source Unspecifi data ed specimen by Automated count Erythrocy 27 - 31.2 pg Normal No Dec 20 te mean 2016 corpuscul on in 11:55 AM ar source hemoglobi data n [Entitic mass] Erythrocy 31.8 - g/dl Normal No Dec 20 te mean 35.4 2016 corpuscul on in 11:55 AM ar source hemoglobi data n concentra tion [Mass/vol ume] by Automated count Erythrocy 82.2 - fl Normal No Dec 20 te mean 97.8 2016 corpuscul on in 11:55 AM ar volume source [Entitic data volume] by Automated count Monocytes 0.1 - 1.0 K/mm3 Normal No Dec 202016 [#/volume on in 11:55 AM ] in source Blood by data Automated count Monocytes 1.7 - 9.3 % Normal No Dec 20 /100 2016 leukocyte on in 11:55 AM s in source Blood by data Automated count Platelet 7.4 - fl Normal No Dec 20 mean 10.4 2016 volume on in 11:55 AM [Entitic source volume] data in Blood by Automated count Platelets 142 - 424 K/mm3 Normal No Dec 202016 [#/volume on in 11:55 AM ] in source Blood data Erythrocy 4.2 - 5.4 M/mm3 Normal No Dec 20 olya 2016 [#/volume on in 11:55 AM ] in source Amniotic data fluid Erythrocy 11.5 - % Normal No Dec 20 te 17.5 2016 distribut on in 11:55 AM ion width source [Entitic data volume] by Automated count Leukocyte 4.8 - K/MM3 Normal No Dec 20 s 10.8 2016 [#/volume on in 11:55 AM ] [...] U/L Normal No Dec 20 phosphata informati 2017 se on in 11:55 AM [Enzymati source [...] ML/MIN Low No Dec 20 e renal informati 2017 clearance on in 11:55 AM source predicted data by Cockcroft -Gault formula Estimated 59- ML/MIN Low REFERENCE Dec 20 RANGE: 2017 glomerula >60 11:55 AM r ML/MIN/1. filtratio 73 SQUARE n rate METERSIf (GF this patient is -A merican, then multiply theresult by 1.210. Globulin 1.3 - 3.2 gm/dL High No Dec 20 [Mass/vol informati 2017 ume] in on in 11:55 AM Serum source data Glucose 74 - 106 mg/dL High No Dec 20 [Mass/vol informati 2016 ume] in on in 11:55 AM Serum or source Plasma data Potassium 3.5 - 5.1 mmoL/L Normal No Dec 20 informati 2016 [Moles/vo on in 11:55 AM lume] in source Serum or data Plasma Sodium 136 - 145 mmoL/L Normal No Dec 20 [Moles/vo informati 2017 lume] in on in 11:55 AM Serum or source Plasma data Aspartate 15 - 37 U/L Low No Dec 20 inform2016 aminotran on in 11:55 AM sferase source [Enzymati data c activity/ volume] in Serum or Plasma Alanine 12 - 78 U/L Low No Dec 20 aminotran informati 2016 sferase on in 11:55 AM [Enzymati source [...] No No Dec 20 s informati informati 2016 [#/volume on in on in 11:20 AM [...]
--- OUTSIDE RECORDS SUMMARY | 2017-03-18 20:23 | External Medical Summary Rpt ---
[...] Date tion ce etation Range COMMENTS TO [place] INTERPRETER: PER [place] PROTOCOL Cholester < 200 mg/dL No No [...] RESU Plasma LTS CALLED TO: TONYA.CLA 02/14/171811 Jeffery,[place] nda> 0.5 IS CONSISTEN T WITH MYOCARDIA [...]
== END 2017-03-15 09:40 | disposition home or self-care (01) ==
LOC: ER 11:35 → 2ND 15:08
PROVIDERS: Emergency Medicine; Family Medicine
DX: S92.332A Displaced fracture of third metatarsal bone, left foot, initial encounter for closed fracture (principal); S92.342A Displaced fracture of fourth metatarsal bone, left foot, initial encounter for closed fracture; W01.0XXA Fall on same level from slipping, tripping and stumbling without subsequent striking against object, initial encounter; Y92.003 Bedroom of unspecified non-institutional (private) residence as the place of occurrence of the external cause; Y99.8 Other external cause status; I25.10 Atherosclerotic heart disease of native coronary artery without angina pectoris; Z95.5 Presence of coronary angioplasty implant and graft; I25.5 Ischemic cardiomyopathy; I25.2 Old myocardial infarction; E78.5 Hyperlipidemia, unspecified; Z79.899 Other long term (current) drug therapy; I50.22 Chronic systolic (congestive) heart failure; I13.0 Hypertensive heart and chronic kidney disease with heart failure and stage 1 through stage 4 chronic kidney disease, or unspecified chronic kidney disease; N18.4 Chronic kidney disease, stage 4 (severe); D63.8 Anemia in other chronic diseases classified elsewhere; Z95.1 Presence of aortocoronary bypass graft
CPT/HCPCS: G0378

== ENCOUNTER 2017-04-04 13:27 | Inpatient (IN) | payer MEDICARE, OTHER, MEDICAID ==
[~2017-04-04] VITALS: Ht 157.5 cm; Wt 61.8 kg
[2017-04-04] VITALS (21 sets, daily range): BP systolic 82–126; BP diastolic 35–75
[~2017-04-04 13:27] MED LIST changes: +NEURONTIN 300M300 MG PO; -VITAMIN D32000 I2 PO; +VITAMIN D32000 UNI1 PO
--- NOTE | 2017-04-04 13:51 | Emergency Room Report ---
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 N Clinical Suspician of Infection? N Mental Status: 1 - Regular (Normal Baseline) Sepsis Risk:Low Sepsis Risk Have you (or family members/close friends) recently traveled outside the [place]? N If Yes, where/when: Have you had exposure to infectious disease within the past month? N TB? Other? Specify: Patient states she's been having some nausea and vomiting since Tuesday and that she has lightheadedness with standing. She denies any vertigo she denies any pain no headache chest pain or abdominal pain she denies any burning on urination or fevers or chills. States she has some malaise and fatigue. Denies any diarrhea denies any cough ALLERGIES Coded Allergies: No Known Allergies (03/13/17) Home Medications Active Scripts NITROGLYCERIN (Nitrostat) 0.4 MG SL [id number] PRN CHEST PAIN #30 TAB Prov: 12/23/16 Oxazepam 10 MG PO BID #60 CAPSULE Ref 1 Prov: 12/23/16 Carvedilol (Carvedilol 12.5MG) 12.5 MG PO BID #60 TAB Ref 11 Prov: 02/18/17 Aspirin (Aspirin EC 81MG) 81 MG PO DAILY #30 TABLET Ref 11 Prov: 02/18/17 DIGOXIN (Digox) 0.125 MG PO DAILY #30 TAB Ref 11 Prov: 02/18/17 Ticagrelor (Brilinta) 90 MG PO BID #60 TAB Ref 11 Prov: 02/18/17 Gabapentin (Neurontin 300MG) 300 MG PO QHS #30 CAP Prov: 03/15/17 Reported Medications POTASSIUM CHL (Potassium Chloride) 40 MEQ PO BID CHOLECALCIFEROL (VITAMIN D3) (Vitamin D-3) 2,000 IU PO DAILY Gabapentin (Gabapentin 300MG) 300 MG PO DAILY ATORVASTATIN CALCIUM (ATORVASTATIN 20MG) 20 MG PO QHS Trazodone Hcl (Trazodone HCl) 150 MG PO QHS Levothyroxine Sodium 0.2 MG PO DAILY Furosemide (Furosemide 40MG) 40 MG PO DAILY History Medical History General CAD? Yes Angina: Yes [place]: Yes Hypertension? Yes Hyperlipidemia? Yes CHF? No DVT? No PE? No COPD? No Asthma? No Anemia? No GERD? No Gastric ulcers? No GI Bleed? No Hernia? No Thyroid Problems? No Hypothyroidism? No CVA? No Seizures? No Diabetes? No Renal Insuffiency? No End Stage Renal Disease? No UTI? No Stones? No BPH? No GB Disease: No Nephritic Syndrome? No Asplenia? No Hepatitis? No Sickle Cell Disease? No Arthritis? No Migraines? No Cataracts? No Glaucoma? No MRSA? No HIV? No TB? No Anxiety? No Depression? No Cancer? No More? Yes Additional hx: TREMORS, PARKISONS Immunization Hx DT/Tetanus Unknown Flu 2016/2017 Pneumonia Received In Past Surgical Hx Previous Surgery?Y Coronary Artery Bypass TUBAL LIGATION HYSTERECTOMY CARDIAC STENTS Family History Family Hx Diabetes No CAD Yes Hypertension Yes Hyperlipidemia Yes Cancer Yes TB No Social History Smoking Hx Smoker: Never Smoker Tobacco: No Packs/day N/A Alcohol Alcohol: No Review of Systems All Other Systems Reviewed and Negative Physical Exam Vital Signs Vital Signs Date Time Temp Pulse Resp B/P Pulse O2 O2 Flow FiO2 Ox Delivery Rate 04/04 1433 72 16 109/58 97 04/04 1329 97.9 78 18 98/47 97 General Appearance: Nontoxic Head: Normocephalic, without obvious abnormality, atraumatic. Eyes: conjunctiva/corneas clear ENT: Mucous membranes dry. Neck: No jugular venous distention. Cardiac: regular rate and rhythm Lungs: Clear to auscultation bilaterally Abdomen: Nontender, Nondistended, positive bowel sounds, no rebound : No CVA tenderness Extremities: no edema Musculoskeletal: No chest wall tenderness Skin: No rashes or lesions to exposed skin. Neurologic: Alert. No gross focal deficits Psychiatric: Normal affect (Chevy CUMMINGS, Иван) General Appearance normal appearance Respiratory Status No: respiratory distress. Cardiovascular normal exam Neurologic alert Medical Decision Making LABS/Meds/Orders Pt receiving controlled substance in ED? No Comment Rectal exam is dark tarry stools quiac at bedside 326 call out to Yariel [phone] dawna Saldivar Results/Orders Laboratory Tests 04/04/17 1419: Lipase 220 04/04/17 1419: Sodium 140, Potassium 3.8, Chloride 106, Carbon Dioxide 24, BUN 66 H, Creatinine 1.6 H, Estimated Creat Clear 32 L, Estimated GFR (MDRD) 30 L, Glucose 137 H, Calcium 8.8, Total Bilirubin 0.3, AST 10 L, ALT 7 L, Alkaline Phosphatase 90, Creatine Kinase 17 L, CK-MB (CK-2) Rel Index 10.6 *H, CK and CKMB Interp 1.8, Troponin I 0.04, Total Protein 6.0 L, Albumin 2.4 L, Globulin 3.6 H, Albumin/Globulin Ratio 0.7 L, WBC 13.9 H, RBC 2.28 L, Hgb 6.2 *L, Hct 20.2 *L, MCV 88.5, RDW 15.6, Plt Count 513 H, MPV 7.3 L, Gran % 84.7 H, Gran # 11.8 H, Lymphocytes % 9.6 L, Monocytes % 5.4, Eosinophils % 0.1, Basophils % 0.2, Lymphocytes # 1.3, Monocytes # 0.8, Eosinophils # 0.0, Basophils # 0.0, PUBS MCHC 30.8 L, MCH 27.2 04/04/17 1414: PT Pending, INR Pending, APTT Pending 04/04/17 1405: Influenza Type A Ag NOT DETECTED, Influenza Type B Ag NOT DETECTED Current Medication Orders Sig/Xu Start time Last Medication Dose Route Stop Time Status Admin Pantoprazole Sodium 40 MG ONCE ONE 04/04 1530 DC IV 04/04 1531 Sodium Chloride 10 ML ONCE ONE 04/04 1530 DC IV 04/04 1531 Ondansetron HCl 0 .STK-MED ONE 04/04 1403 DC .ROUTE Sodium Chloride 1,000 ML .STK-MED ONE 04/04 1403 DC IV Ondansetron HCl 4 MG ONCE ONE 04/04 1400 DC 10 IV 04/04 1401 1410 Sodium Chloride 1,000 ML .Q1H1M 04/04 1400 DC 04/04 IV 04/04 1500 1410 Sodium Chloride 10 ML PRN PRN 04/04 1400 AC IV 04/05 1350 Sodium Chloride 10 ML PRN PRN 04/04 1345 AC IV 04/05 1337 Orders Procedure Date/time Status BLOOD TRANSFUSION ORDER 04/04 1527 Active PARTIAL THROMBOPLASTIN TIME 04/04 1522 Active PROTHROMBIN TIME 04/04 1522 Active TYPE FOR CROSSMATCH 04/04 1520 Active INFLUENZA A&B ANTIGENS 04/04 1353 Complete ORTHOSTATIC B/P 04/04 1352 Active URINALYSIS/COMPLETE 04/04 1351 Active LIPASE 04/04 1351 Complete 12 LEAD EKG-STEFANIE (INITIAL) 04/04 1339 Active ELECTROCARDIOGRAM REQUEST 04/04 1339 Active IV SALINE LOCK 04/04 1337 Active CBC WITH AUTO DIFF 04/04 1337 Complete CARDIAC ENZYMES 04/04 1337 Complete CHEM 12 PROFILE 04/04 1337 Complete 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 (PCP/Family) ED Critical Care Critical Care Yes Time spent 30-74 min Vital system(s) involved: Circulatory Failure I was present at bedside for Coordinating pt's care, Interpreting EKGs/Strips , During my initial exam, Reviewing lab results, Reviewing old records, Discussing pt condition, For re-examinations at 1533
--- OUTSIDE RECORDS SUMMARY | 2017-04-04 14:03 | External Medical Summary Rpt | CCD ---
Author Author , [place] Organization [place] Address Unknown Phone [email or web address] Care Team Providers Care Party Supply Specialist Name Role Phone A Adonis SIMMONS MD PSC, Yakov Unavailable Unavailable Adonis SIMMONS MD PSC JUAREZ, JUAREZ Unavailable Unavailable [facility] Unavailable Unavailable SERVICE, [facility] Unavailable Unavailable SERVICE, [facility] Unavailable Unavailable [place], [facility] MARY, MARY Unavailable Unavailable MARY JONELLE, Unavailable Unavailable MARY JONELLE [facility] Unavailable Unavailable [facility] JR ROWE FULLER, Unavailable Unavailable ELSA OCHOA Unavailable Unavailable ELSA PEDRAZA, ELSA Unavailable Unavailable KEIL[facility], Unavailable Unavailable [facility] Unavailable Unavailable INC, [facility] Unavailable Unavailable HOSPITAL P, [facility] P [facility], Unavailable Unavailable [facility] ANDERSON, ANDERSON Unavailable Unavailable [facility] Unavailable Un[facility], [facility] KILPELA, KILPELA Unavailable Unavailable [facility] Unavailable Unavailable [facility], [facility] Unavailable Unavailable [facility], [facility] STEFANIE WATTS JR, JR Unavailable Unavailable [facility], [facility], Unavailable Unavailable PLL[facility], [facility], [facility] Unavailable Unavailable INCORPORAT, [facility] [...] Code Diagnosis DOS Provider Status I10 ESSENTIAL 03-01-2017 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 MYOCARDIAL PHYSICIANS INFARCTION GROUP I255 ISCHEMIC 03-01-2017 [facility] CARDIOMYOPA PHYSICIANS THY GROUP I5021 ACUTE 03-01-2017 [facility] SYSTOLIC PHYSICIANS CONGESTIVE GROUP HEART FAILURE I509 HEART 03-01-2017 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 ELEVATION PHYSICIANS MYOCARDIAL GROUP INFARCTION I5020 UNSPECIFIED 02-17-2017 [facility] SYSTOLIC PHYSICIANS CONGESTIVE GROUP HEART FAILURE J90 PLEURAL 02-17-2017 [facility] NOT [facility]ING [facility] ELSEWHERE CLASSIFIED R0602 SHORTNESS 02-17-2017 [facility] OF BREATH [facility]ICAL [facility]ING ASS R918 OTHER 02-17-2017 [facility] NONSPECIFIC MEDICAL ABNORMAL IMAGING ASS FINDING OF LUNG FIELD E785 HYPERLIPIDE 02-15-2017 [facility] MACIEL PHYSICIANS UNSPECIFIED GROUP E40235 ASHD STEBBINS 02-15-2017 [facility] COR ART PHYSICIANS W/UNSTABLE GROUP ANGINA PECTORIS I6529 OCCLUSION & 02-15-2017 [facility] STENOSIS PHYSICIANS UNSPECIFIED GROUP CAROTID ARTERY N183 CHRONIC 02-15-2017 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 PHYSICIANS AORTOCORONA GROUP RY BYPASS GRAFT R110 NAUSEA 02-14-2017 [facility] R410 DISORIENTAT 02-14-2017 [facility] ION PHYSICIANS, UNSPECIFIED PLLC R4182 ALTERED 02-14-2017 [facility] MENTAL MEDICAL STATUS [facility]ING ASS UNSPECIFIED R5381 OTHER 02-14-2017 [facility] R7989 OTHER SPEC 02-14-2017 [facility] ABNORMAL PHYSICIANS, FINDINGS PLLC BLOOD CHEMISTRY M7989 OTHER 02-04-2017 [facility] SPECIFIED MEDICAL SOFT TISSUE IMAGING ASS DISORDERS [id number] LACERATION 02-04-2017 A Adonis SIMMONS W/O FOREIGN PSC BODY LT LOW LEG SBSQT ENC [id number] UNS INJURY 02-04-2017 [facility] RT LOWER MEDICAL LEG INITIAL IMAGING ASS ENCOUNTER [id number] UNS INJURY 02-04-2017 [facility] LEG INC SUBSEQUENT ENCOUNTER C48SYLU FALL FROM 02-04-2017 A Adonis VELASQUEZ MD PSC SUBSEQUENT ENCOUNTER Z23 ENCOUNTER 02-04-2017 A Adonis CONWAY MD PSC IMMUNIZATIO N D649 ANEMIA 01-23-2017 [facility] UNSPECIFIED [facility]YSICIANS, PLLC [id number] LACERATION 01-23-2017 [facility] W/O FOREIGN PHYSICIANS, BODY LT PLLC LOW LEG INIT ENC X07265 OTHER LONG 01-23-2017 [facility] CURRENT INC DRUG THERAPY E538 DEFICIENCY 01-20-2017 A Adonis ANTONIO MD PSC SPECIFIED B GROUP VITAMINS M1990 UNSPECIFIED 01-20-2017 A Adonis SIMMONS MD PSC OSTEOARTHRI TIS UNSPECIFIED SITE [id number] OTHER SPEC 01-19-2017 [facility]ANCE [...] G20 PARKINSONS 12-23-2016 [facility] T74089 ASHD STEBBINS 12-21-2016 [facility] P ANGINA PECTORIS B86651 ATHEROSCLER 12-21-2016 [facility] P ARTERY CABG W/[facility] AP R079 CHEST PAIN 12-21-2016 [facility] UNSPECIFIED [facility]ING ASS R531 WEAKNESS 12-21-2016 [facility] P R5383 OTHER 12-21-2016 [facility] E039 HYPOTHYROID 12-08-2016 [facility] UNSPECIFIED HOLDINGS E782 MIXED 11-17-2016 [facility] HYPERLIPIDE [facility] MACIEL HOLDINGS Z9181 HISTORY OF 08-18-2016 [facility] M542 CERVICALGIA 11-26-2015 [facility] M549 DORSALGIA 11-26-2015 [facility] UNSPECIFIED [facility] HOLDINGS R0989 OTH SPEC SX 10-15-2015 [facility] THE IMAGING ASS CIRC & RESP SYS E611 IRON 10-07-2015 [facility] M545 LOW BACK 10-07-2015 A Adonis SIMMONS PAIN PSC R57192 PAIN IN 08-06-2015 [facility] RIGHT HIP [facility] HOLDINGS R296 REPEATED 06-06-2015 [facility]- G250 ESSENTIAL 05-13-2015 [facility] NEUROLOGY D64.9 ANEMIA, UNSPECIFIED G20 PARKINSON'S DISEASE ICR4449 M19.90 UNSPECIFIED OSTEOARTHRI TIS, UNSPECIFIED SITE 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 D 66 SS ti MO 63 0- 8- 00 CA 58 ON ve N 79 20 20 0 RE 02 D3 [address] 1 PH EP 2, AR HE 00 MA N 0 CY A UN IT LL C SO FT GE L 00 07 07 0 18 18 ME 14 BE Ac TA 90 -2 -2 0. D 67 SS ti MO 44 7- 7- 00 CA 72 ON ve N 21 20 20 0 RE 90 B- [address] 12 3 PH EP AR HE 1, MA N 00 CY A 0 MC LL G C TA BL ET 00 07 07 0 10 10 ME 14 BE Ac TA 53 -2 -2 0. D 63 SS ti MO 63 0- 0- 00 CA 48 ON ve N 79 20 20 0 RE 12 D3 [address] 1 PH EP 2, AR HE 00 MA N 0 CY A UN IT LL C SO FT GE L 00 12 01 0 60 6 ME 12 BE Ac TA 53 -2 -2 .0 D 05 SS ti MO 63 9- 5- 00 CA 55 ON [...] 9- 8- .0 CA 14 ON ve MO 04 20 20 00 RE 37 OT [...] -2 -2 0. D 97 SS ti MO 63 9- 9- 00 CA 38 ON ve N 79 20 20 0 RE 55 D3 [address] 1 PH EP 2, AR HE 00 MA N 0 CY A UN IT LL C SO FT GE L BA 11 12 12 0 14 15 ME 11 BE Ac ZA 70 -2 -2 20 D 97 SS ti 10 9- 9- .0 CA 38 ON ve MO 04 20 20 00 RE 56 OT [address] EC 4 PH EP T AR HE CR MA N EA CY A M LL C Immunization Name Date Rout CVX Reac Dose [...] Order Detail nces retati t Range on Serum or plasma folate measurement ([facility] (03-14-2017 06:54) Serum = 4.0 >3.0 complet or 017 ng/mL ed plasma 06:54 folate measure ment ([facility] Comment: Comment: A serum folate concentration of less than 3.1 ng/mL is Comment: considered to represent clinical deficiency. Iron and TIBC (03-14-2017 06:54) Serum = 11 % 15-55 complet or 017 ed plasma 06:54 iron saturat ion measure m Iron, = 31 27-139 complet serum 017 ug/dL ed 06:54 Unsatur = 247 118-369 complet ated 017 ug/dL ed iron 06:54 binding capacit y measur Serum = 278 250-450 complet or 017 ug/dL ed plasma 06:54 iron binding capacit y me Vitamin B12 ser/plas (03-14-2017 06:54) Vitamin = 707 211-946 complet B12 017 pg/mL ed ser/eliud 06:54 s Comment: Performed at: [facility] Comment: 1979 [place], [place] [id number] Comment: [employer] Sergeant: Tian Holt PhD, Phone: [phone] Serum or plasma ferritin measurement (ma (03-14-2017 06:54) Serum = 39 8-388 complet or 017 ng/mL ed plasma 06:54 ferriti n measure ment (ma Basic metabolic panel (03-14-2017 06:54) Serum = 141 136-145 complet sodium 017 mmoL/L ed measure 06:54 ment Serum = 5.0 3.5-5.1 complet potassi 017 mmoL/L ed um 06:54 measure ment Serum = 91 74-106 complet or 017 mg/dL ed plasma 06:54 glucose measure ment (mas Estimat = 36 59- complet ed 017 ML/MIN ed glomeru 06:54 lar filtrat ion rate (GF Comment: REFERENCE RANGE: >60 ML/MIN/1.73 SQUARE METERS Comment: If this patient is -Japanese, then multiply the Comment: result by 1.210. Estimat = 31 50-200 complet ion of 017 ML/MIN ed creatin 06:54 ine renal clearan ce Serum = 1.4 0.55-1. complet or 017 mg/dL 02 ed plasma 06:54 creatin ine measure ment ( Carbon = 28 21.0-32 complet dioxide 017 mmoL/L .0 ed 06:54 measure ment Serum = 107 98-107 complet or 017 mmoL/L ed plasma 06:54 chlorid e measure ment (mo Serum = 8.7 8.5-10. complet or 017 mg/dL 1 ed plasma 06:54 calcium measure ment (mas Serum = 30 7-18 complet or 017 mg/dL ed plasma 06:54 urea nitroge n measure men Automated blood reticulocytes count (num (03-14-2017 06:54) Automat = 3.0 % 0.9-3.2 complet ed 017 ed blood 06:54 reticul ocytes count (num CBC w auto diff (03-14-2017 06:54) Red = 3.04 4.2-5.4 complet blood 017 M/mm3 ed cell 06:54 count Baso % = 0.6 % 0.1-2.0 complet 017 ed 06:54 Blood = 6.3 4.8-10. complet leukocy 017 K/MM3 8 ed olya 06:54 count (number /volume ) Automat = 14.4 11.5-17 complet ed 017 % .5 ed erythro 06:54 cyte distrib ution width Blood = 223 142-424 complet platele 017 K/mm3 ed t count 06:54 Automat = 8.5 7.4-10. complet ed 017 fl 4 ed blood 06:54 platele t mean volume karsten [place] % = 9.2 % 1.7-9.3 complet 017 ed 06:54 Absolut = 0.6 0.1-1.0 complet e 017 K/mm3 ed monocyt 06:54 e count Automat = 92.4 82.2-97 complet ed 017 fl .8 ed erythro 06:54 cyte mean corpusc ular v Automat = 30.6 31.8-35 complet ed 017 g/dl .4 ed erythro 06:54 cyte mean corpusc ular h Mean = 28.3 27-31.2 complet corpusc 017 pg ed ular 06:54 hemoglo bin (MCH) determ Lymphoc = 17.5 10-50.0 complet yte 017 % ed count, 06:54 blood, automat ed Absolut = 1.1 0.7-4.5 complet e 017 K/mm3 ed lymphoc 06:54 yte count Blood = 8.6 12.2-16 complet hemoglo 017 g/dL .2 ed bin 06:54 measure ment (mass/v olum Blood = 28.1 37.0-47 complet hematoc 017 % .0 ed rit 06:54 (volume fractio n) Granulo = 66.2 37.0-80 complet cyte 017 % .0 ed percent 06:54 age Blood = 4.2 1.8-7.8 complet granulo 017 K/mm3 ed cytes 06:54 automat ed count (numb Automat = 6.6 % 0.1-12. complet ed 017 0 ed blood 06:54 eosinop hils/10 0 leukocy t Automat = 0.4 0.0-0.4 complet ed 017 K/mm3 ed blood 06:54 eosinop hil count Automat = 0.0 0-0.2 complet ed 017 K/MM3 ed blood 06:54 basophi l count (count/ vo Comprehensive metabolic panel (03-13-2017 12:34) Protein = 6.1 6.4-8.2 complet total 017 gm/dL ed ser/eliud 12:34 s ALT = 8 U/L 12-78 complet (SGPT) 017 ed ser/eliud 12:34 s Serum = 6 U/L 15-37 complet or 017 ed plasma 12:34 asparta te aminotr ansfera Serum = 137 136-145 complet sodium 017 mmoL/L ed measure 12:34 ment Serum = 4.9 3.5-5.1 complet potassi 017 mmoL/L ed um 12:34 measure ment Serum = 138 74-106 complet or 017 mg/dL ed plasma 12:34 glucose measure ment (mas Serum = 3.1 1.3-3.2 complet globuli 017 gm/dL ed n 12:34 measure ment (mass/v olume) Estimat = 27 59- complet ed 017 ML/MIN ed glomeru 12:34 lar filtrat ion rate (GF Comment: REFERENCE RANGE: >60 ML/MIN/1.73 SQUARE METERS Comment: If this patient is -Japanese, then multiply the Comment: result by 1.210. Estimat = 28 50-200 complet ion of 017 ML/MIN ed creatin 12:34 ine renal clearan ce Serum = 1.8 0.55-1. complet or 017 mg/dL 02 ed plasma 12:34 creatin ine measure ment ( Carbon = 25 21.0-32 complet dioxide 017 mmoL/L .0 ed 12:34 measure ment Serum = 105 98-107 complet or 017 mmoL/L ed plasma 12:34 chlorid e measure ment (mo Serum = 8.6 8.5-10. complet or 017 mg/dL 1 ed plasma 12:34 calcium measure ment (mas Serum = 36 7-18 complet or 017 mg/dL ed plasma 12:34 urea nitroge n measure men Serum = 0.5 0.2-1.0 complet or 017 mg/dL ed plasma 12:34 total bilirub in measure m Serum = 98 46-116 complet or 017 U/L ed plasma 12:34 alkalin e phospha tase karsten Serum = 3.0 3.4-5.0 complet or 017 gm/dL ed plasma 12:34 albumin measure ment (mas Serum = 1.0 1.1-1.8 complet or 017 ed plasma 12:34 albumin /globul in mass ra Cardiac enzymes (03-13-2017 12:34) Serum = 0.04 0.00-0. complet or 017 ng/mL 06 ed plasma 12:34 troponi n i.cardi ac measu Serum = 25 26-192 complet or 017 U/L ed plasma 12:34 creatin e kinase measure m Serum = 0.8 0.0-3.6 complet or 017 ng/mL ed plasma 12:34 creatin e kinase MB measu Serum = 3.2 0-4.0 complet or 017 U/L ed plasma 12:34 creatin e kinase MB (CK-M CBC w auto diff (03-13-2017 12:34) Red = 3.03 4.2-5.4 complet blood 017 M/mm3 ed cell 12:34 count Blood = 214 142-424 complet platele 017 K/mm3 ed t count 12:34 Automat = 9.1 7.4-10. complet ed 017 fl 4 ed blood 12:34 platele t mean volume karsten [place] % = 8.3 % 1.7-9.3 complet 017 ed 12:34 Absolut = 0.7 0.1-1.0 complet e 017 K/mm3 ed monocyt 12:34 e count Automat = 92.0 82.2-97 complet ed 017 fl .8 ed erythro 12:34 cyte mean corpusc ular v Automat = 30.5 31.8-35 complet ed 017 g/dl .4 ed erythro 12:34 cyte mean corpusc ular h Mean = 28.1 27-31.2 complet corpusc 017 pg ed ular 12:34 hemoglo bin (MCH) determ Lymphoc = 9.7 % 10-50.0 complet yte 017 ed count, 12:34 blood, automat ed Absolut = 0.8 0.7-4.5 complet e 017 K/mm3 ed lymphoc 12:34 yte count Blood = 8.6 12.2-16 complet hemoglo 017 g/dL .2 ed bin 12:34 measure ment (mass/v olum Blood = 27.9 37.0-47 complet hematoc 017 % .0 ed rit 12:34 (volume fractio n) Granulo = 78.0 37.0-80 complet cyte 017 % .0 ed percent 12:34 age Blood = 6.1 1.8-7.8 complet granulo 017 K/mm3 ed cytes 12:34 automat ed count (numb Automat = 3.7 % 0.1-12. complet ed 017 0 ed blood 12:34 eosinop hils/10 0 leukocy t Automat = 0.3 0.0-0.4 complet ed 017 K/mm3 ed blood 12:34 eosinop hil count Baso % = 0.3 % 0.1-2.0 complet 017 ed 12:34 Automat = 0.0 0-0.2 complet ed 017 K/MM3 ed blood 12:34 basophi l count (count/ vo Blood = 7.8 4.8-10. complet leukocy 017 K/MM3 8 ed olya 12:34 count (number /volume ) Automat = 14.2 11.5-17 complet ed 017 % .5 ed erythro 12:34 cyte distrib ution width Urinalysis dipstick W Reflex Microscopic panel in [...] ce] in Urine by Test strip Urobili 02-14- 0.2 NEG complet nogen 017 ed [Presen [...] Urine by Automat ed test strip Mucus 12-20- NEGATIV NEG complet [Presen 017 E ed ce] in 11:20 Urine sedimen t by Light microsc opy Nitrite 12-20- NEGATIV NEG complet 017 E ed [Presen 11:20 ce] in Urine by Test strip Urobili 1.0 NEG complet nogen 017 ed [Presen 11:20 ce] in Urine by Test strip Procedures Procedure DOS Code Location Performer Comment ECG 90131 [facility] ROUTINE 7 PHYSICIAN ECG S GROUP W/LEAST 12 LDS I&R ONLY RADIOLOGI 77558 [facility] C EXAM 7 MEDICAL CHEST 2 IMAGING VIEWS ASS FRONTAL&L ATERAL SBSQ 66339 [place] [address] PHYSICIAN CARE/DAY S GROUP 15 MINUTES SBSQ 26451 [facility] 7 PHYSICIAN CARE/DAY S GROUP 15 MINUTES RADIOLOGI 20088 [facility] C 7 MEDICAL EXAMINATI IMAGING ON CHEST ASS SINGLE VIEW FRONTAL INITIAL 90163 [facility] 7 PHYSICIAN CARE/DAY S GROUP 70 MINUTES CATH PLMT 21164 [facility] L 7 PHYSICIAN HRT/ARTS/ S GROUP GRFTS WNJX & ANGIO IMG S&I PRQ 65011 [facility] TRLUML 7 PHYSICIAN CORONARY S GROUP STENT W/ANGIO ONE ART/[place] [address] [facility] HEAD/BRAI 7 MEDICAL N W/O IMAGING CONTRAST ASS MATERIAL RADIOLOGI 46431 [facility] 7 MEDICAL EXAMINATI IMAGING ON CHEST ASS SINGLE VIEW FRONTAL ECG 99732 [facility] ROUTINE 7 PHYSICIAN ECG S, PLLC W/LEAST 12 LDS I&R ONLY RADIOLOGI 81998 [facility] C 7 [facility] EXAMINATI INC INC ON TIBIA & FIBULA 2 VIEWS ADMINISTR G0008 A Adonis HUNTER ATION OF 7 [place] INFLUENZA PSC VIRUS VACCINE IIV 83839 A C [facility]TER VACCINE 7 [place] PRESERV PSC FREE INCREASED AG CONTENT IM DRESSING 77869 A C ELSA CHANGE 7 [place] UNDER PSC ANESTHESI A CUL BACT 65397 [facility] XCPT 7 [facility] URINE INC INC BLOOD/STO OL AEROBIC ISOL CUL BACT 61878 [facility] VEAG AEROBIC 7 [facility] ADDL INC INC METHS DEFINITIV E EA ISOL COLLECTIO 40813 [facility] N VENOUS 7 [facility] BLOOD INC INC VENIPUNCT URE SUSCEPTIB 13374 [facility] VE[facility] LTY STDY 7 [facility] ANTIMICRB INC INC IAL MICRO/AGA R DILUTJ BLOOD 90740 [facility] COUNT 7 [facility] COMPLETE INC INC AUTO&AUTO DIFRNTL WBC BLOOD 52611 A Adonis HUNTER COUNT 7 [place] COMPLETE PSC AUTO&AUTO DIFRNTL WBC COLLECTIO 37408 A Adonis HUNTER N VENOUS 7 [place] BLOOD PSC VENIPUNCT URE INJECTION J3420 A Adonis HUNTER VIT B-12 7 [place] PSC CYANOCOBA ALETA TO 1000 MCG INJECTION J1030 A Adonis HUNTER 7 [place] METHYLPRE PSC DNISOLONE ACETATE 40 MG THERAPEUT 93428 A Adonis HUNTER IC 7 [place] PROPHYLAC PSC TIC/DX INJECTION SUBQ/IM INJECTION J3301 A Adonis HUNTER 7 [place] TRIAMCINO PSC LONE ACETONIDE NOS 10 MG TDAP 75983 GAYR VEGA VACCINE 7 7 [facility] YRS/> IM INC INC SMPL RPR 65653 [facility] SCALP/NEC 7 PHYSICIAN U K/AX/GWENDOLYN S, PLLC T/TRUNK 12.6-20.0 CM AMB A0427 [facility] SERVICE 7 AMBULANCE AMBULANCE ALS SERVICE SERVICE EMERGENCY TRANSPORT LEVEL 1 IM ADM 00543 GARY VEGA PRQ ID 7 [facility] SUBQ/IM INC INC NJXS 1 VACCINE GROUND A0425 [facility] MILEAGE 7 AMBULANCE AMBULANCE PER SERVICE SERVICE STATUTE MILE O2 CONC 1 E1390 [facility] DEANGELO DEL [place] 7 [place] 85%/>02 INC- INC- CONC AT [facility] FLW RATE TRAVEL [address] MED 7 PHYSICIAN PHYSICIAN NEC LAB S LA S LA SPEC; PRORAT ACTL MILE BASIC 80348 COM[facility] COMBINED METABOLIC 7 PHYSICIAN PHYSICIAN PANEL S LA S LA CALCIUM TOTAL CYANOCOBA 70314 COMBIN[facility] COMBINED ALETA 7 PHYSICIAN PHYSICIAN VITAMIN S LA S LA B-12 BLOOD 29571 [facility] COMBINED COUNT 7 PHYSICIAN PHYSICIAN COMPLETE S LA S LA AUTO&AUTO DIFRNTL WBC COLLECTIO 19898 COMBINED COMBINED N VENOUS 7 PHYSICIAN PHYSICIAN BLOOD S LA S LA VENIPUNCT URE O2 CONC 1 E1390 DEANGELO DEANGELO DEL [place] 7 [place] 85%/>02 INC- INC- CONC AT [facility] FLW RATE AMBULANCE A0428 [facility] [place] 7 AMBULANCE AMBULANCE BLS SERVICE SERVICE NONEMERGE NCY TRANSPORT SBSQ 42595 [facility] 7 PHYSICIAN CARE/DAY S GROUP 15 MINUTES GROUND A0425 [facility] MILEAGE 7 AMBULANCE AMBULANCE PER SERVICE SERVICE STATUTE MILE GROUND A0425 [facility] MILEA 7 AMBULANCE AMBULANCE PER SERVICE SERVICE STATUTE MILE ECG 95507 GARY WATTS JR ROUTINE 7 [facility] W/LEAST P 12 LDS I&[place] [address] [facility] HEAD/BRAI 7 MEDICAL N W/O IMAGING CONTRAST ASS MATERIAL RADIOLOGI 93619 [facility] [place] [facility] C 7 MEDICAL EXAMINATI IMAGING ON CHEST ASS SINGLE VIEW FRONTAL AMB A0427 [facility] SERVICE 7 AMBULANCE AMBULANCE ALS SERVICE SERVICE EMERGENCY TRANSPORT LEVEL [address] [place] [address] [facility] THYROID 7 [facility] CH[facility]I STIMULATI HOLDINGS [place] [address] [facility] FREE 7 [facility] [place] [address] [facility] THYROID 7 [facility]I CHIDI STIMULATI HOLDINGS HOLDINGS NG HORMONE TSH BASIC 06555 [facility] METABOLIC 7 [facility] PANEL HOLDINGS HOLDINGS CALCIUM TOTAL CYANOCOBA 53217 [facility] ALETA 7 [facility] VITAMIN HOLDINGS HOLDINGS B-12 SEAT E0156 [facility] ATTACHMEN 7 HOME HOME T WALKER MEDICAL MEDICAL EQUIPME EQUIPME WALKER E0143 [facility] FOLDING 7 HOME HOME WHEELED MEDICAL MEDICAL ADJUSTABL EQUIPME EQUIPME [place] [address] [facility] THYROID 7 [facility]IDI CHIDI STIMULATI HOLD[place] [address] [facility] FREE 7 CHIDI CHIDI THYROXINE HOLDINGS HOLDINGS BASIC 63092 [facility] METABOLIC 7 CHIDI CHIDI PANEL HOLDINGS HOLDINGS CALCIUM TOTAL BASIC 23815 [facility] METABOLIC 6 CHIDI CHIDI PANEL [place] [address] [facility] THYROID 6 CHIDI CHIDI STIMULATI HOLD[place] [address] [facility] THYROID 6 CHIDI CHIDI STIMULATI HOLDINGS [place] [address] [facility] FREE 6 CH[facility] THYROXINE HOLDINGS HOLDINGS BASIC 55049 [facility] METABOLIC 6 CHID[facility] CH[facility] PANEL HOLDINGS HOLDINGS CALCIUM TOTAL CYANOCOBA 20039 [facility] ALETA 6 CHIDI [facility] VITAMIN HOLDINGS HOLDINGS B-12 BASIC 58674 [facility] METABOLIC 6 [facility] PANEL [place] [address] [facility] FREE 6 [facility]ID[facility] [place] [address] [facility] THYROID 6 [facility] STIMULATI HOLDINGS HOLDINGS NG HORMONE TSH DUPLEX 67608 [place] [facility] SCAN 6 MEDICAL JONELLE EXTRACRAN IMAGING [place] [address] [facility] QUEST THYROID 6 DIAGNOSTI DIAGNOSTI STIMULATI CS CS NG INCORPORA [place] [address] QUEST QUEST FREE 6 DIAGNOSTI DIAGNOSTI THYROXINE CS CS INCORPORA INCORPORA T T INJECTION J3420 A Adonis HUNTER VIT B-12 6 TROY PEDRAZA PSC CYANOCOBA ALETA TO 1000 MCG BLOOD 80404 QUEST QUEST COUNT 6 DIAGNOSTI DIAGNOSTI COMPLETE CS CS AUTO&AUTO INCORPORA INCORPORA DIFRNTL T T WBC COMPREHEN 66819 [facility] QUEST SIVE 6 DIAGNOSTI DIAGNOSTI METABOLIC CS CS PANEL INCORPORA INCORPORA T T INJ J0702 A Adonis HUNTER BETAMETHA Denys PEDRAZA SONStefan PSC ACETATE & PHOSPHATE 3 MG INJECTION J1030 A Adonis PEDRAZA METHYLPRE PSC DNISOLONE ACETATE [address] [place] [address] QUEST QUEST FERRITIN 6 DIAGNOSTI DIAGNOSTI CS CS INCORPORA INCORPORA T T THERAPEUT 73385 A Adonis HUNTER IC 6 TROY [place] KEILA PROPHYLAC PSC TIC/DX INJECTION SUBQ/IM CYANOCOBA 30521 [facility] ALETA 6 [facility]ID[facility] VITAMIN HOLDINGS HOLDINGS B-12 BASIC 77245 [facility] METABOLIC 6 CHIDI [facility] PANEL HOLD[place] [address] [facility] FREE 6 CHIDI [facility] [address] [facility] THYROID 6 [facility] STIMULATI HOLDINGS HOLDINGS NG HORMONE TSH Encounters Encounter Start End Date Code Location Performer Type Date OFFICE [address] [facility] NATHAN TAY 7 7 PHYSICIAN T VISIT S GROUP 15 MINUTES EMERGENCY 55389 AISHA ANDERSON DEPT 7 7 PHYSICIAN VISIT S, PLLC HIGH SEVERITY& THREAT FUNCJ OFFICE 07077 A Adonis TAY 7 7 [facility] [place] T VISIT PSC 15 MINUTES [facility] - 7 7 [facility] OUTPATIEN INC T OFFICE 33608 A Adonis TAY 7 7 [facility] [place] T VISIT PSC 15 MINUTES OFFICE 66497 Yakov TAY 7 7 [facility]OY [place] T VISIT PSC 15 MINUTES EMERGENCY 70073 [facility] 7 7 [facility] DEPARTMEN INC T VISIT LOW/MODER SEVERITY [facility]OSP[facility] [place] 7 7 [facility] OUTPATIEN INC T EMERGENCY 50457 AISHA ROWE 7 7 PHYSICIAN JR DEPARTMEN S, [facility] T VISIT HIGH/URGE NT SEVERITY OFFICE 23841 A Adonis TAY 7 7 TROY [place] T VISIT PSC 15 MINUTES EMERGENCY 42941 AISHA ANDRE 7 7 PHYSICIAN U DEPARTMEN S, [facility] T VISIT MODERATE SEVERITY HOSPITAL [place] 7 7 [facility] OUTPATIEN INC T EMERGENCY 10390 GARY 7 7 [facility] VISIT HIGH/URGE NT SEVERITY [facility] INPATIENT 7 7 [facility] [place]PATIENT 7 7 [facility] GARY - 6 6 [facility] OUTPATIEN [facility] T OFFICE 22125 Yakov MARIE 6 6 TROY PEDRAZA T VISIT PSC 15 MINUTES [facility] 6 6 [facility] - OTHER [facility] 5 5 MAN[facility] - OTHER INC- OFFICE 86972 [facility] 5 N T NATAN 45 NEUROLOGY MINUTES
--- OUTSIDE RECORDS SUMMARY | 2017-04-04 14:03 | External Medical Summary Rpt | CCD ---
Author Author , VIRGINIA Organization VIGRINIA Address Unknown Phone [email or web address] Care Team Providers Care Coil Assembler Name Role Phone A Adonis SIMMONS MD [...] Unavailable ELSA PEDRAZA, ELSA Unavailable Unavailable [facility], Unavailable Unavailable [facility] Unavailable Unavailable INC, [facility] Unavailable Unavailable HOSPITAL P, [facility] P [facility], Unavailable Unavailable [facility] ANDERSON, ANDERSON Unavailable Unavailable [facility], [facility] KILPELA, KILPELA Unavailable Unavailable [facility] Unavailable Unavailable [facility], [facility] Unavailable Unavailable [facility], [facility] STEFANIE WATTS JR, JR Unavailable Unavailable [facility], [facility], Unavailable Unavailable [facility], [facility], [facility] Unavailable Unavailable INCORPORAT, [facility] [...] Diagnosis DOS Provider Status I10 ESSENTIAL 03-01-2017 [facility] PRIMARY PHYSICIANS HYPERTENSIO GROUP N 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 [facility] 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 OLD 03-01-2017 [facility] MYOCARDIAL PHYSICIANS INFARCTION GROUP I255 ISCHEMIC 03-01-2017 [facility] CARDIOMYOPA PHYSICIANS THY GROUP I5021 ACUTE 03-01-2017 [facility] SYSTOLIC PHYSICIANS CONGESTIVE GROUP HEART FAILURE I509 HEART 03-01-2017 [facility] FAILURE PHYSICIANS UNSPECIFIED GROUP Z955 PRESENCE OF 03-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 [facility] 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 I214 NON-ST 02-17-2017 [facility] ELEVATION PHYSICIANS MYOCARDIAL GROUP INFARCTION I5020 UNSPECIFIED 02-17-2017 [facility] SYSTOLIC PHYSICIANS CONGESTIVE GROUP HEART FAILURE J90 PLEURAL 02-17-2017 [place] [facility] NOT IMAGING ASS ELSEWHERE CLASSIFIED R0602 SHORTNESS 02-17-2017 [place] OF BREATH [facility]ICAL [facility]ING [facility] R918 OTHER 02-17-2017 [place] NONSPECIFIC MEDICAL ABNORMAL IMAGING ASS FINDING OF LUNG FIELD E785 HYPERLIPIDE 02-15-2017 [facility] MACIEL PHYSICIANS UNSPECIFIED GROUP D30365 ASHD MASHPEE 02-15-2017 [facility] COR ART PHYSICIANS W/UNSTABLE GROUP ANGINA PECTORIS I6529 OCCLUSION & 02-15-2017 [facility] STENOSIS PHYSICIANS UNSPECIFIED GROUP CAROTID ARTERY N183 CHRONIC 02-15-2017 [facility] KIDNEY PHYSICIANS DISEASE GROUP STAGE 3 MODERATE R05 COUGH 02-15-2017 [facility] 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 [facility] PHYSICIANS AORTOCORONA GROUP RY BYPASS GRAFT R110 NAUSEA 02-14-2017 [facility] R410 DISORIENTAT 02-14-2017 [facility] ION PHYSICIANS, UNSPECIFIED PLLC R4182 ALTERED 02-14-2017 [place] MENTAL MEDICAL STATUS [facility]ING ASS UNSPECIFIED R5381 OTHER 02-14-2017 [place] MALAISE [facility] R7989 OTHER SPEC 02-14-2017 [facility] ABNORMAL PHYSICIANS, FINDINGS PLLC BLOOD CHEMISTRY M7989 OTHER 02-04-2017 [place] SPECIFIED MEDICAL SOFT TISSUE IMAGING ASS DISORDERS B27630G LACERATION 02-04-2017 A Adonis SIMMONS W/O FOREIGN PSC BODY LT LOW LEG SBSQT ENC V2348IV UNS INJURY 02-04-2017 [place] RT LOWER MEDICAL LEG INITIAL IMAGING ASS ENCOUNTER A6714NV UNS INJURY 02-04-2017 [facility] RT LOWER [facility] LEG INC SUBSEQUENT ENCOUNTER J81AFIH FALL FROM 02-04-2017 A Adonis VELASQUEZ MD PSC SUBSEQUENT ENCOUNTER Z23 ENCOUNTER 02-04-2017 A Adonis CONWAY MD PSC IMMUNIZATIO N D649 ANEMIA 01-23-2017 [facility] UNSPECIFIED PHYSICIANS, PLLC [id number] LACERATION 01-23-2017 [facility] W/O FOREIGN PHYSICIANS, BODY LT PLLC LOW LEG INIT ENC E60841 OTHER LONG 01-23-2017 [facility]OS[facility] CURRENT INC DRUG THERAPY E538 DEFICIENCY 01-20-2017 A Adonis ANTONIO MD PSC SPECIFIED B GROUP VITAMINS M1990 UNSPECIFIED 01-20-2017 A Adonis SIMMONS MD PSC OSTEOARTHRI TIS UNSPECIFIED SITE M0042BA OTHER SPEC 01-19-2017 [facility] [...] G20 PARKINSONS 12-23-2016 [facility] SERVICE G20617 ASHD MASHPEE 12-21-2016 [facility] P ANGINA PECTORIS H40928 ATHEROSCLER 12-21-2016 [facility] P ARTERY CABG W/[facility] AP R079 CHEST PAIN 12-21-2016 [place] UNSPECIFIED MEDICAL IMAGING ASS R531 WEAKNESS 12-21-2016 [facility] P R5383 OTHER 12-21-2016 [place] [facility] E039 HYPOTHYROID 12-08-2016 [facility] UNSPECIFIED HOLDINGS E782 MIXED 11-17-2016 [facility] HYPERLIPIDE [facility] MACIEL HOLDINGS Z9181 HISTORY OF 08-18-2016 [facility] M542 CERVICALGIA 11-26-2015 [facility] M549 DORSALGIA 11-26-2015 [facility] UNSPECIFIED [facility] R0989 OTH SPEC SX 10-15-2015 [facility] SIGNS MEDICAL INVLV THE IMAGING ASS CIRC & RESP SYS E611 IRON 10-07-2015 [facility] M545 LOW BACK 10-07-2015 A Adonis SIMMONS PAIN PSC V85539 PAIN IN 08-06-2015 [facility] RIGHT HIP [facility]INGS R296 REPEATED 06-06-2015 [place] INC- G250 ESSENTIAL 05-13-2015 [facility] NEUROLOGY D64.9 ANEMIA, UNSPECIFIED G20 PARKINSON'S DISEASE EOL8983 M19.90 UNSPECIFIED OSTEOARTHRI TIS, UNSPECIFIED SITE M22.2X9 [...] -2 -2 0. D 66 SS ti [place] 63 0- 8- 00 CA 58 ON ve N 79 20 20 0 RE 02 D3 [address] 1 PH EP 2, AR HE 00 MA N 0 CY A UN IT LL C SO FT GE L 00 07 07 0 18 18 ME 14 BE Ac TA 90 -2 -2 0. D 67 SS ti [place] 44 7- 7- 00 CA 72 ON ve N 21 20 20 0 RE 90 B- [address] 12 3 PH EP AR HE 1, MA N 00 CY A 0 MC LL G C TA BL ET 00 07 07 0 10 10 ME 14 BE Ac TA 53 -2 -2 0. D 63 SS ti [place] 63 0- 0- 00 CA 48 ON ve N 79 20 20 0 RE 12 D3 [address] 1 PH EP 2, AR HE 00 MA N 0 CY A UN IT LL C SO FT GE L 00 12 01 0 60 6 ME 12 BE Ac TA 53 -2 -2 .0 D 05 SS ti AZ 63 9- 5- 00 CA 55 ON [...] 9- 8- .0 CA 14 ON ve MT 04 20 20 00 RE 37 OT [...] -2 -2 0. D 97 SS ti [place] 63 9- 9- 00 CA 38 ON [...] 9- 9- .0 CA 38 ON ve MT 04 20 20 00 RE 56 OT [...] Range on Serum or plasma folate measurement ([facility] (03-14-2017 06:54) Serum = 4.0 >3.0 complet or 017 ng/mL ed plasma 06:54 folate measure ment ([facility] Comment: Comment: A serum folate concentration of [...] ed ser/eliud 06:54 s Comment: Performed at: [facility] Comment: [id number], [place] [id number] Comment: Enrollment Management Director: Tian Holt PhD, Phone: [phone] Serum or plasma ferritin measurement (ma (03-14-2017 [...] SQUARE METERS Comment: If this patient is -[place], then multiply the Comment: result by 1.210. [...] blood 06:54 platele t mean volume karsten Brewster % = 9.2 % 1.7-9.3 complet 017 [...] SQUARE METERS Comment: If this patient is -[place], then multiply the Comment: result by 1.210. [...] blood 12:34 platele t mean volume karsten Brewster % = 8.3 % 1.7-9.3 complet 017 [...] Procedure DOS Code Location Performer Comment ECG 64470 [facility] ROUTINE 7 PHYSICIAN ECG S GROUP W/LEAST 12 LDS I&R ONLY RADIOLOGI 75825 [facility] C EXAM 7 MEDICAL CHEST 2 IMAGING VIEWS ASS FRONTAL&L ATERAL SBSQ 80101 [place] [address] PHYSICIAN CARE/DAY S GROUP 15 MINUTES SBSQ 31372 [facility] 7 PHYSICIAN CARE/DAY S GROUP 15 MINUTES RADIOLOGI 72323 [facility] C 7 MEDICAL EXAMINATI IMAGING ON CHEST ASS SINGLE VIEW FRONTAL INITIAL 31569 [facility] 7 PHYSICIAN CARE/DAY S GROUP 70 MINUTES CATH PLMT 65222 [facility] L 7 PHYSICIAN HRT/ARTS/ S GROUP GRFTS WNJX & ANGIO IMG S&I PRQ 37633 [facility] TRLUML 7 PHYSICIAN CORONARY S GROUP STENT W/ANGIO ONE ART/[place] [address] [facility] HEAD/BRAI 7 MEDICAL N W/O IMAGING CONTRAST ASS MATERIAL RADIOLOGI 37951 [place] 7 MEDICAL EXAMINATI IMAGING ON CHEST ASS SINGLE VIEW FRONTAL ECG 81953 [facility]ERSON ROUTINE 7 PHYSICIAN ECG S, PLLC W/LEAST 12 LDS I&R ONLY RADIOLOGI 90397 GARY VEGA C 7 [facility] EXAMINATI INC INC ON TIBIA & FIBULA 2 VIEWS ADMINISTR G0008 A Adonis HUNTER ATION OF 7 [facility]OY [place] INFLUENZA PSC VIRUS VACCINE IIV 84896 A C HUNTER VACCINE 7 [place] PRESERV PSC FREE INCREASED AG CONTENT IM DRESSING 78879 A C ELSA CHANGE 7 [facility] [place] UNDER PSC ANESTHESI A CUL BACT 41966 GARY VE[facility] XCPT 7 [facility] URINE INC INC BLOOD/STO OL AEROBIC ISOL CUL BACT 57783 [facility] AEROBIC 7 [facility] ADDL INC INC METHS DEFINITIV E EA ISOL COLLECTIO 67838 [facility] N VENOUS 7 [facility] BLOOD INC INC VENIPUNCT URE SUSCEPTIB 74745 G[facility] LTY STDY 7 [facility] ANTIMICRB INC INC IAL MICRO/AGA R DILUTJ BLOOD 98201 [facility] COUNT 7 [facility] COMPLETE INC INC AUTO&AUTO DIFRNTL WBC BLOOD 52029 A Adonis HUNTER COUNT 7 [place] COMPLETE PSC AUTO&AUTO DIFRNTL WBC COLLECTIO 90004 A Adonis HUNTER N VENOUS 7 [place] BLOOD PSC VENIPUNCT URE INJECTION J3420 A Adonis HUNTER VIT B-12 7 [place] PSC CYANOCOBA ALETA TO 1000 MCG INJECTION J1030 A Adonis HUNTER 7 [place] METHYLPRE PSC DNISOLONE ACETATE 40 MG THERAPEUT 87519 A Adonis HUNTER IC 7 [facility] [place] PROPHYLAC PSC TIC/DX INJECTION SUBQ/IM INJECTION J3301 A Adonis HUNTER 7 [place] TRIAMCINO PSC LONE ACETONIDE NOS 10 MG TDAP 77576 G[facility] VEGA VACCINE 7 7 [facility] HOSP [facility] YRS/> IM INC INC SMPL RPR 86946 [facility] SCALP/NEC 7 PHYSICIAN U K/AX/GWENDOLYN S, PLLC T/TRUNK 12.6-20.[address] [facility] SERVICE 7 AMBULANCE AMBULANCE ALS SERVICE SERVICE EMERGENCY TRANSPORT LEVEL 1 IM ADM 60892 AGRY VEGA PRQ ID 7 [facility] SUBQ/IM INC INC NJXS [address] [facility] MILEAGE 7 AMBULANCE AMBULANCE PER SERVICE SERVICE STATUTE MILE O2 CONC 1 E1390 [facility] DEL PORT 7 MANOR MANOR 85%/>02 INC- INC- CONC AT [facility] FL[facility] RATE TRAVEL [address] MED 7 PHYSICIAN PHYSICIAN NEC LAB S LA S LA SPEC; PRORAT ACTL MILE BASIC 82976 COMBINED COMBINED METABOLIC 7 PHYSICIAN PHYSICIAN PANEL S LA S LA CALCIUM TOTAL CYANOCOBA 80839 COMBINED COMBINED ALETA 7 PHYSICIAN PHYSICIAN VITAMIN S LA S LA B-12 BLOOD 15109 COMBINED COMBINED COUNT 7 PHYSICIAN PHYSICIAN COMPLETE S LA S LA AUTO&AUTO DIFRNTL WBC COLLECTIO 73757 COMBINED COMBINED N VENOUS 7 PHYSICIAN PHYSICIAN BLOOD S LA S LA VENIPUNCT URE O2 CONC 1 E1390 [facility]ANGEL[facility] DEL [place] 7 MAN[place] MAN[place] 85%/>02 INC- INC- CONC AT [facility] FLW RATE AMBULANCE A0428 [facility] 7 AMBULANCE AMBULANCE BLS SERVICE SERVICE NONEMERGE NCY TRANSPORT SBSQ 71130 [facility] 7 PHYSICIAN CARE/DAY S GROUP [address] [facility] MILEAGE 7 AMBULANCE AMBULANCE PER SERVICE SERVICE STATUTE MILE GROUND A0425 [facility] MILEA 7 AMBULANCE AMBULANCE PER SERVICE SERVICE STATUTE MILE ECG 72435 GARY WATTS JR ROUTINE 7 [facility] W/LEAST P 12 LDS I&[place] [address] [facility] HEAD/BRAI 7 MEDICAL N W/O IMAGING CONTRAST ASS MATERIAL RADIOLOGI 57090 [place] [facility] C 7 MEDICAL EXAMINATI IMAGING ON CHEST ASS SINGLE VIEW FRONTAL AMB A0427 [facility] SERVICE 7 AMBULANCE AMBULANCE ALS SERVICE SERVICE EMERGENCY TRANSPORT LEVEL [address] [place] [address] [facility] THYROID 7 [facility] STIMULATI HOLDINGS [place] [address] [facility] FREE 7 [employer] [facility] [employer] [facility] [place] [address] [facility] THYROID 7 [facility] STIMULATI HOLDINGS HOLDINGS NG HORMONE TSH BASIC 30398 [facility] METABOLIC 7 [facility] PANEL HOLDINGS HOLDINGS CALCIUM TOTAL CYANOCOBA 58521 [facility] ALETA 7 [facility] VITAMIN HOLDINGS HOLDINGS B-12 SEAT E0156 [facility] 7 HOME HOME T WALKER MEDICAL MEDICAL EQUIPME EQUIPME WALKER E0143 [facility] FOLDING 7 HOME HOME WHEELED MEDICAL MEDICAL ADJUSTABL EQUIPME EQUIPME [place] [address] [facility] THYROID 7 [facility] STIMULATI HOLDINGS [place] [address] [facility] FREE 7 [facility] CH[facility] THYROXINE HOLDINGS HOLDINGS BASIC 18610 [facility] METABOLIC 7 CHIDI CH[facility]I PANEL HOLDINGS HOLDINGS CALCIUM TOTAL BASIC 88806 [facility] METABOLIC 6 CHIDI [facility] PANEL [place] [address] [facility] THYROID 6 CHIDI CHIDI STIMULATI HOLD[place] [address] [facility] THYROID 6 CHIDI CHIDI STIMULATI HOLDINGS [place] [address] [facility] FREE 6 CHIDI CHIDI THYROXINE HOLDINGS HOLDINGS BASIC 98160 LAB [facility] METABOLIC 6 CHIDI CHIDI PANEL HOLDINGS HOLDINGS CALCIUM TOTAL CYANOCOBA 95075 LAB [facility] ALETA 6 CHIDI CHIDI VITAMIN HOLDINGS HOLDINGS B-12 BASIC 60953 [facility] METABOLIC 6 CHIDI [facility] PANEL [place] [address] [facility] FREE 6 CHIDI [facility] [address] [facility] THYROID 6 CHIDI CHIDI STIMULATI HOLDINGS HOLDINGS NG HORMONE TSH DUPLEX 95214 [place] [facility] SCAN 6 MEDICAL JONELLE EXTRACRAN IMAGING I[place] [address] [facility] THYROID 6 DIAGNOSTI DIAGNOSTI STIMULATI CS CS NG INCORPORA [place] [address] [facility] FREE 6 DIAGNOSTI DIAGNOSTI THYROXINE CS CS INCORPORA INCORPORA T T INJECTION J3420 A Adonis HUNTER VIT B-12 6 TROY PEDRAZA PSC CYANOCOBA ALETA TO 1000 MCG BLOOD 34621 [facility] COUNT 6 DIAGNOSTI DIAGNOSTI COMPLETE CS CS AUTO&AUTO INCORPORA INCORPORA DIFRNTL T T WBC COMPREHEN 51967 [facility] SIVE 6 DIAGNOSTI DIAGNOSTI METABOLIC CS CS PANEL INCORPORA INCORPORA T T INJ J0702 A Adonis HUNTER BETAMETHA Denys PEDRAZA SONStefan PSC ACETATE & PHOSPHATE 3 MG INJECTION J1030 A Adonis PEDRAZA METHYLPRE PSC DNISOLONE ACETATE [address] [place] [address] [facility] FERRITIN 6 DIAGNOSTI DIAGNOSTI CS CS INCORPORA INCORPORA T T THERAPEUT 89380 A Adonis HUNTER IC 6 TROY [place] KEILA PROPHYLAC PSC TIC/DX INJECTION SUBQ/IM CYANOCOBA 12068 [facility] ALETA 6 [facility] VITAMIN HOLDINGS HOLDINGS B-12 BASIC 78934 [facility] METABOLIC 6 [facility] PANEL [place] [address] [facility] FREE 6 [facility] [place] [address] [facility] THYROID 6 [facility] STIMULATI HOLDINGS HOLDINGS NG HORMONE TSH Encounters Encounter Start End Date Code Location Performer Type Date OFFICE 08696 [facility] NATHAN TAY 7 7 PHYSICIAN T VISIT S GROUP 15 MINUTES EMERGENCY 96734 AISHA ANDERSON DEPT 7 7 PHYSICIAN VISIT S, PLLC HIGH SEVERITY& THREAT FUNCJ OFFICE 82235 A Adonis TAY 7 7 TROY CUMMNIGS T VISIT PSC 15 MINUTES HOSPITAL [facility]ARY - 7 7 MEM H[facility] OUTPATIEN INC T OFFICE 81252 A Adonis TAY 7 7 [place] T VISIT PSC 15 MINUTES OFFICE 96005 Yakov TAY 7 7 [place] T VISIT PSC 15 MINUTES EMERGENCY 68880 [facility] 7 7 [facility] DEPARTMEN INC T VISIT LOW/MODER SEVERITY HOSPITAL [place] 7 7 [facility] OUTPATIEN INC T EMERGENCY 59114 AISHA ROWE 7 7 PHYSICIAN JR DEPARTMEN S, [facility] T VISIT HIGH/URGE NT SEVERITY OFFICE 56506 A Adonis TAY 7 7 TROY [place]UM[place] T VISIT PSC 15 MINUTES EMERGENCY 64546 AISHA ANDRE 7 7 PHYSICIAN U DEPARTMEN S, [facility] T VISIT MODERATE SEVERITY HOSPITAL GARY [place] 7 7 MEM H[facility] OUTPATIEN INC T EMERGENCY 16993 GARY 7 7 [facility] VISIT HIGH/URGE NT SEVERITY [facility] INPATIENT 7 7 [facility] INPATIENT [address] [facility] GARY - 6 6 [facility] OUTPATIEN [facility] T OFFICE 51067 Yakov MARIE 6 6 TROY PEDRAZA T VISIT PSC 15 MINUTES SPECIAL [facility] 6 6 MANOR - OTHER [facility] 5 5 MANOR - OTHER INC- OFFICE 64416 JOANNE LIN [facility] 5 5 N T NATAN 45 NEUROLOGY MINUTES
--- OUTSIDE RECORDS SUMMARY | 2017-04-04 14:05 | External Medical Summary Rpt | CCD ---
Author Author , VIRGINIA Organization V[place] Address Unknown Phone [email or web address] Care Team Providers Care Bonderite Operator Name Role Phone A Adonis SIMMONS MD [...] Unavailable Unavailable ELSA CABAN Unavailable Unavailable [facility], Unavailable Unavailable [facility] Unavailable Unavailable INC, [facility] Unavailable Unavailable HOSPITAL P, [facility] P [facility], Unavailable Unavailable [facility] ANDERSON, ANDERSON Unavailable Unavailable [facility] KILPELA, KILPELA Unavailable Unavailable [...] Diagnosis DOS Provider Status I10 ESSENTIAL 03-01-2017 [facility] PRIMARY PHYSICIANS HYPERTENSIO GROUP N I2510 [facility] [place] 03-01-2017 [facility] 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 OLD 03-01-2017 [facility] MYOCARDIAL PHYSICIANS INFARCTION GROUP I255 ISCHEMIC 03-01-2017 [facility] CARDIOMYOPA PHYSICIANS THY GROUP I5021 ACUTE 03-01-2017 [facility] SYSTOLIC PHYSICIANS CONGESTIVE GROUP HEART FAILURE I509 HEART 03-01-2017 [facility] FAILURE PHYSICIANS UNSPECIFIED GROUP Z955 PRESENCE OF 03-01-2017 [facility] 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 I214 NON-ST 02-17-2017 [facility] ELEVATION PHYSICIANS MYOCARDIAL GROUP INFARCTION I5020 UNSPECIFIED 02-17-2017 [facility] SYSTOLIC PHYSICIANS CONGESTIVE GROUP HEART FAILURE J90 PLEURAL 02-17-2017 [facility] NOT [facility]AGING ASS ELSEWHERE CLASSIFIED R0602 SHORTNESS 02-17-2017 [facility] OF BREATH [facility]ICAL [facility] R918 OTHER 02-17-2017 [facility] NONSPECIFIC MEDICAL ABNORMAL IMAGING ASS FINDING OF LUNG FIELD E785 HYPERLIPIDE 02-15-2017 [facility] MACIEL PHYSICIANS UNSPECIFIED GROUP U56446 [facility] [place] 02-15-2017 [facility] COR ART PHYSICIANS W/UNSTABLE GROUP ANGINA PECTORIS I6529 OCCLUSION & 02-15-2017 [facility] STENOSIS PHYSICIANS UNSPECIFIED GROUP CAROTID ARTERY N183 CHRONIC 02-15-2017 [facility] KIDNEY PHYSICIANS DISEASE GROUP STAGE 3 MODERATE R05 COUGH 02-15-2017 [facility] 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 [facility] PHYSICIANS AORTOCORONA GROUP RY BYPASS GRAFT R110 NAUSEA 02-14-2017 [facility] R410 DISORIENTAT 02-14-2017 [facility] ION PHYSICIANS, UNSPECIFIED PLLC R4182 ALTERED 02-14-2017 [facility] MENTAL MEDICAL STATUS IMAGING ASS UNSPECIFIED R5381 OTHER 02-14-2017 [facility] MALAISE [facility] R7989 OTHER SPEC 02-14-2017 [facility] ABNORMAL PHYSICIANS, FINDINGS PLLC BLOOD CHEMISTRY M7989 OTHER 02-04-2017 [facility] SPECIFIED MEDICAL SOFT TISSUE IMAGING ASS DISORDERS [id number] LACERATION 02-04-2017 A Adonis SIMMONS W/O FOREIGN PSC BODY LT LOW LEG SBSQT ENC P4728OP UNS INJURY 02-04-2017 [facility] RT LOWER MEDICAL LEG INITIAL IMAGING ASS ENCOUNTER F9027TX UNS INJURY 02-04-2017 [facility] L[facility] LEG INC SUBSEQUENT ENCOUNTER [id number] FALL FROM 02-04-2017 A Adonis VELASQUEZ MD PSC SUBSEQUENT ENCOUNTER Z23 ENCOUNTER 02-04-2017 A Adonis CONWAY MD PSC IMMUNIZATIO N D649 ANEMIA 01-23-2017 [facility] UNSPECIFIED PHYSICIANS, PLLC [id number] LACERATION 01-23-2017 [facility] W/O FOREIGN PHYSICIANS, BODY LT PLLC LOW LEG INIT ENC P83149 OTHER LONG 01-23-2017 [facility] CURRENT INC DRUG THERAPY E538 DEFICIENCY 01-20-2017 A Adonis SIMMONS OF [place] PSC SPECIFIED B GROUP VITAMINS M1990 UNSPECIFIED 01-20-2017 A Adonis SIMMONS MD PSC OSTEOARTHRI TIS UNSPECIFIED SITE [id number] OTHER SPEC 01-19-2017 [facility] INJURIES LT AMBULANCE [...] G20 PARKINSONS 12-23-2016 [facility] DIS[facility] SERVICE Z20749 [facility] [place] 12-21-2016 [facility] W/[facility] P ANGINA PECTORIS S14619 ATHEROSCLER 12-21-2016 [facility] P ARTERY CABG W/[facility] AP R079 CHEST PAIN 12-21-2016 [facility] UNSPECIFIED [facility]ICAL IMAGING ASS R531 WEAKNESS 12-21-2016 [facility] P R5383 OTHER 12-21-2016 [facility] E039 HYPOTHYROID 12-08-2016 [facility] IS[facility] UNSPECIFIED HOLDINGS E782 MIXED 11-17-2016 [facility] HYPERLIPIDE [facility] MACIEL HOLDINGS Z9181 HISTORY OF 08-18-2016 [facility] M542 CERVICALGIA 11-26-2015 [facility] HOLDINGS M549 DORSALGIA 11-26-2015 [facility] UNSPECIFIED [facility] HOLDINGS R0989 OTH SPEC SX 10-15-2015 [place] [facility] CIRC & RESP SYS E611 IRON 10-07-2015 [facility] INC[facility]POR[facility] M545 LOW BACK 10-07-2015 A Adonis SIMMONS PAIN PSC W04345 PAIN IN 08-06-2015 [facility] RIGHT HIP [facility] HOLDINGS R296 REPEATED 06-06-2015 [place] [place] [facility]- G250 ESSENTIAL 05-13-2015 [facility] Medications Na ND Rx Da [...] -2 -2 0. D 66 SS ti MD 63 0- 8- 00 CA 58 ON ve N 79 20 20 0 RE 02 D3 [address] 1 PH EP 2, AR HE 00 MA N 0 CY A UN IT LL C SO FT GE L 00 07 07 0 18 18 ME 14 BE Ac TA 90 -2 -2 0. D 67 SS ti MD 44 7- 7- 00 CA 72 ON ve N 21 20 20 0 RE 90 B- [address] 12 3 PH EP AR HE 1, MA N 00 CY A 0 MC LL G C TA BL ET 00 07 07 0 10 10 ME 14 BE Ac TA 53 -2 -2 0. D 63 SS ti MD 63 0- 0- 00 CA 48 ON ve N 79 20 20 0 RE 12 D3 [address] 1 PH EP 2, AR HE 00 MA N 0 CY A UN IT LL C SO FT GE L 00 12 01 0 60 6 ME 12 BE Ac TA 53 -2 -2 .0 D 05 SS ti MD 63 9- 5- 00 CA 55 ON [...] -2 -2 0. D 97 SS ti MD 63 9- 9- 00 CA 38 ON [...] Procedure DOS Code Location Performer Comment ECG 90451 [facility] ROUTINE 7 PHYSICIAN ECG S GROUP W/LEAST 12 LDS I&R ONLY SBSQ 24743 [place] [address] PHYSICIAN CARE/DAY S GROUP 15 MINUTES RADIOLOGI 81714 [facility] EXAM 7 MEDICAL CHEST 2 IMAGING VIEWS ASS FRONTAL&L ATERAL SBSQ 12212 [place] [address] PHYSICIAN CARE/DAY S GROUP 15 MINUTES INITIAL 65553 [place] [address] PHYSICIAN CARE/DAY S GROUP 70 MINUTES RADIOLOGI 78533 [facility] 7 MEDICAL EXAMINATI IMAGING [place] [address] [facility] TRLUML 7 PHYSICIAN CORONARY S GROUP STENT W/ANGIO ONE ART/BRNCH CATH PLMT 54064 [facility] L 7 PHYSICIAN HRT/ARTS/ S GROUP GRFTS WNJX & ANGIO IMG S&I ECG 64727 [facility] ANDERSON ROUTINE 7 PHYSICIAN ECG S, PLLC W/LEAST 12 LDS I&R ONLY RADIOLOGI 90331 [place] [facility] C 7 MEDICAL EXAMINATI IMAGING [place] [address] [place] JUAREZ HEAD/BRAI 7 MEDICAL N W/O IMAGING CONTRAST ASS MATERIAL ADMINISTR G0008 A Adonis HUNTER ATION OF 7 [place] INFLUENZA PSC VIRUS VACCINE RADIOLOGI 01034 [facility] MEDICAL EXAMINATI IMAGING ON TIBIA ASS & FIBULA 2 VIEWS IIV 83757 A Adonis HUNTER VACCINE 7 [place] PRESERV PSC FREE INCREASED AG CONTENT IM DRESSING 88091 A Adonis HUNTER CHANGE 7 [place] UNDER PSC ANESTHESI A BLOOD 69251 [facility] COUNT 7 [facility] COMPLETE INC INC AUTO&AUTO DIFRNTL WBC CUL BACT 72213 [facility] XCPT 7 [facility] URINE INC INC BLOOD/STO OL AEROBIC ISOL CUL BACT 74872 [facility] AEROBIC 7 [facility] ADDL INC INC METHS DEFINITIV E EA ISOL COLLECTIO 40122 [facility] N VENOUS 7 [facility] BLOOD INC INC VENIPUNCT URE SUSCEPTIB 75915 [facility] LTY STDY 7 [facility] ANTIMICRB INC INC IAL MICRO/AGA R DILUTJ INJECTION J3301 A Adonis HUNTER 7 [place] TRIAMCINO PSC LONE ACETONIDE NOS 10 MG COLLECTIO 04144 A Adonis HUNTER N VENOUS 7 [place] BLOOD PSC VENIPUNCT URE BLOOD 00194 A Adonis HUNTER COUNT 7 [place] COMPLETE PSC AUTO&AUTO DIFRNTL WBC INJECTION J3420 A Adonis HUNTER VIT B-12 7 [place] PSC CYANOCOBA ALETA TO 1000 MCG THERAPEUT 55574 A Adonis HUNTER IC 7 [place] PROPHYLAC PSC TIC/DX INJECTION SUBQ/IM INJECTION J1030 A Adonis SIMMONS MD METHYLPRE PSC DNISOLONE ACETATE 40 MG GROUND A0425 [facility] ALLRED MILEAGE 7 AMBULANCE AMBULANCE PER SERVICE SERVICE STATUTE MILE AMB A0427 [facility] SERVICE 7 AMBULANCE AMBULANCE ALS SERVICE SERVICE EMERGENCY TRANSPORT LEVEL 1 SMPL RPR 18836 [facility] SCALP/NEC 7 [facility] K/AX/GWENDOLYN INC INC T/TRUNK 12.6-20.0 CM TDAP 45178 [facility] VACCINE 7 7 [facility] YRS/> IM INC INC IM ADM 04135 [facility] PRQ ID 7 [facility] SUBQ/IM INC INC NJXS 1 VACCINE O2 CONC 1 E1390 [facility] DEANGELO DEL PORT 7 [place] MANOR 85%/>02 INC- INC- CONC AT [facility] FLW RATE CYANOCOBA 27626 COMBINED COMBINED ALETA 7 PHYSICIAN PHYSICIAN VITAMIN S LA S LA B-12 BLOOD 54074 COMBINED COMBINED COUNT 7 PHYSICIAN PHYSICIAN COMPLETE S LA S LA AUTO&AUTO DIFRNTL WBC TRAVEL [address] MED 7 PHYSICIAN PHYSICIAN NEC LAB S LA S LA SPEC; PRORAT ACTL MILE BASIC 34392 COMBINED COMBINED METABOLIC 7 PHYSICIAN PHYSICIAN PANEL S LA S LA CALCIUM TOTAL COLLECTIO 81118 COMBINED COMBINED N VENOUS 7 PHYSICIAN PHYSICIAN BLOOD S LA S LA VENIPUNCT URE O2 CONC 1 E1390 [facility] DEANGELO DEL PORT 7 MAN[place] MANOR 85%/>02 INC- INC- CONC AT [facility] FLW RATE SBSQ 58935 [facility] 7 PHYSICIAN CARE/DAY S GROUP 15 MINUTES AMBULANCE A0428 [facility] SERVICE 7 AMBULANCE AMBULANCE BLS SERVICE SERVICE NONEMERGE NCY TRANSPORT GROUND A0425 [facility] 7 AMBULANCE AMBULANCE PER SERVICE SERVICE STATUTE MILE ECG 15341 [facility] WATTS JR ROUTINE 7 [facility] W/LEAST P 12 LDS I&R ONLY GROUND A0425 [facility] 7 AMBULANCE AMBULANCE PER SERVICE SERVICE STATUTE MILE RADIOLOGI 31969 ELIZABETH Lamb 7 MEDICAL EXAMINATI IMAGING ON CHEST ASS [place] FRONTAL AMB A0427 [facility] SERVICE 7 AMBULANCE AMBULANCE ALS SERVICE SERVICE [place] [address] ELIZABETH JUAREZ HEAD/BRAI 7 MEDICAL N W/[place] [address] [facility] THYROID 7 [facility] STIMULATI HOLDINGS [place] [address] [facility] THYROID 7 [facility] CHIDI STIMULATI HOLD[place] [address] [facility] FREE 7 CH[facility] CHIDI THYROXINE HOLDINGS HOLDINGS BASIC 87691 [facility] METABOLIC 7 [facility] PANEL HOLDINGS HOLDINGS CALCIUM TOTAL CYANOCOBA 95120 [facility] ALETA 7 [facility] CHIDI VITAMIN HOLDINGS HOLDINGS B-12 SEAT E0156 [facility] ATTACHMEN 7 HOME HOME T WALKER MEDICAL MEDICAL EQUIPME EQUIPME WALKER E0143 [facility] FOLDING 7 HOME HOME WHEELED MEDICAL MEDICAL ADJUSTABL EQUIPME EQUIPME [place] [address] [facility] FREE 7 [facility] [employer] [place] [address] [facility] THYROID 7 [facility] CHIDI STIMULATI HOLDINGS HOLDINGS NG HORMONE TSH BASIC 23331 [facility] METABOLIC 7 [facility] PANEL HOLDINGS HOLDINGS CALCIUM TOTAL BASIC 15040 [facility] METABOLIC 6 [facility] PANEL [place] [address] [facility]Y THYROID 6 CHIDI CHIDI STIMULATI HOLD[place] [address] [facility] THYROID 6 [facility] CHIDI STIMULATI HOLD[place] [address] [facility] FREE 6 [facility] CHIDI THYROXINE HOLDINGS HOLDINGS BASIC 58154 [facility] WILLY METABOLIC 6 CH[facility] CHIDI PANEL HOLDINGS HOLDINGS CALCIUM TOTAL CYANOCOBA 08412 LAB [facility] WILL[facility] ALETA 6 [facility] VITAMIN HOLDINGS HOLDINGS B-12 BASIC 60632 LAB [facility] METABOLIC 6 [facility] CHIDI PANEL [place] [address] [facility] FREE 6 [facility] [employer] [place] [address] [facility] THYROID 6 [facility] CHIDI STIMULATI HOLDINGS HOLDINGS NG HORMONE TSH DUPLEX 41219 [facility] MEDICAL JONELLE EXTRACRAN IMAGING [place] [address] [facility] THYROID 6 DIAGNOSTI DIAGNOSTI STIMULATI CS CS NG INCORPOR[place] [address] [facility] FREE 6 DIAGNOSTI DIAGNOSTI THYROXINE CS CS INCORPORA INCORPORA T T COMPREHEN 95280 [facility] SIVE 6 DIAGNOSTI DIAGNOSTI METABOLIC CS CS [place] [address] [facility] FERRITIN 6 DIAGNOSTI DIAGNOSTI CS CS INCORPORA INCORPORA T T THERAPEUT 86017 A Adonis HUNTER IC 6 [facility] PROPHYLAC PSC TIC/DX INJECTION SUBQ/IM INJ J0702 A Adonis HUNTER BETAMETHA 6 [facility] SONE PSC ACETATE & PHOSPHATE 3 MG INJECTION J1030 A Adonis HUNTER 6 [facility] [place] METHYLPRE PSC DNISOLONE ACETATE 40 MG INJECTION J3420 A Adonis HUNTER VIT B-12 6 [facility] [place] PSC CYANOCOBA ALETA TO 1000 MCG BLOOD 68711 [facility] COUNT 6 DIAGNOSTI DIAGNOSTI COMPLETE CS CS AUTO&AUTO INCORPORA INCORPORA DIFRNTL T T WBC CYANOCOBA 40741 [facility] ALETA 6 [facility] CH[facility]I VITAMIN HOLDINGS HOLDINGS B-[address] [place] [address] [facility] FREE 6 [facility] CHIDI [place]RO[place] [address] [facility] THYROID 6 CIHDI [facility] STIMULATI HOLDINGS HOLDINGS NG HORMONE TSH BASIC 05037 [facility] METABOLIC 6 [facility] PANEL HOLDINGS HOLDINGS CALCIUM TOTAL Encounters Encounter Start End Date Code Location Performer Type Date OFFICE 57116 [facility] NATHAN OUTPATIEN 7 7 PHYSICIAN T VISIT S GROUP 15 MINUTES OFFICE 10357 Yakov TONG OUTPATIEN 7 7 [facility] T VISIT PSC 15 MINUTES EMERGENCY 86933 [facility] ANDERSON DEPT 7 7 PHYSICIAN VISIT S, PLLC HIGH SEVERITY& THREAT FUNCJ OFFICE 54421 Yakov HUNTER OUTPATIEN 7 7 [facility] T VISIT PSC 15 MINUTES HOSPITAL [facility] - 7 7 [facility] OUTPATIEN INC T OFFICE 25488 Yakov TAY 7 7 [place] T VISIT PSC 15 MINUTES HOSPITAL [facility] - 7 7 [facility] OUTPATIEN INC T EMERGENCY 86754 [facility] 7 7 [facility] DEPARTMEN INC T VISIT LOW/MODER SEVERITY EMERGENCY 63592 AISHA ROWE 7 7 PHYSICIAN [facility]IGH/URGE NT SEVERITY OFFICE 17352 Yakov TAY 7 7 [facility] [place] T VISIT PSC 15 MINUTES EMERGENCY 02619 [facility] 7 7 [facility] HIGH/URGE NT SEVERITY HOSPITAL [facility] - 7 7 [facility] OUTPATIEN INC T EMERGENCY 11631 AISHA ANDRE 7 7 PHYSICIAN [facility] S, PLL[facility] T VISIT MODERATE SEVERITY [facility] - [facility] INPATIENT 7 7 [facility] 7 7 [facility] GARY - 6 6 [facility] OUTPATIEN INC T OFFICE 55129 Yakov TAY 6 6 [facility] T VISIT PSC 15 MINUTES SPECIAL [facility] FACILITY 6 6 [facility] - OTHER INC- SPECIAL [facility] FACILITY 5 5 [facility] - OTHER INC- [facility] 95210 [facility] 5 N T NEW 45 NEUROLOGY MINUTES
--- OUTSIDE RECORDS SUMMARY | 2017-04-04 14:05 | External Medical Summary Rpt | CCD ---
Author Author , VIRGINIA Organization VIRGINIA Address Unknown Phone [email or web address] Care Team Providers Care Wet Chemistry Analyst Name Role Phone A Adonis SIMMONS MD [...] Unavailable Unavailable ELSA CABAN Unavailable Unavailable KEILA [facility], Unavailable Unavailable [facility] Unavailable Unavailable INC, [facility] Un[facility] Un[facility], [facility], Unavailable Unavailable [facility] ANDERSON, ANDERSON Unavailable Unavailable [facility] KILPELA, KILPELA Unavailable Unavailable [...] [facility] NATHAN, NATHAN Unavailable Unavailable LEVNIE RILEY, LEVINE RILEY Unavailable Unavailable [facility] Unavailable Unavailable [facility], [facility] Unavailable Unavailable [facility], [facility] SOTINGEANU, Unavailable Unavailable SOTINGEANU Purpose Continuity of Care Document - 05-13-2015 through 2016 Problems Code Diagnosis DOS Provider Status I10 ESSENTIAL 03-01-2017 [facility] PRIMARY PHYSICIANS HYPERTENSIO GROUP N I2510 [facility]D [place] 03-01-2017 [facility] 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 OLD 03-01-2017 [facility] MYOCARDIAL PHYSICIANS INFARCTION GROUP I255 ISCHEMIC 03-01-2017 [facility] CARDIOMYOPA PHYSICIANS THY GROUP I5021 ACUTE 03-01-2017 [facility] SYSTOLIC PHYSICIANS CONGESTIVE GROUP HEART FAILURE I509 HEART 03-01-2017 [facility] FAILURE PHYSICIANS UNSPECIFIED GROUP Z955 PRESENCE OF 03-01-2017 [facility] 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 I214 NON-ST 02-17-2017 [facility] ELEVATION PHYSICIANS MYOCARDIAL GROUP INFARCTION I5020 UNSPECIFIED 02-17-2017 [facility] SYSTOLIC PHYSICIANS CONGESTIVE GROUP HEART FAILURE J90 PLEURAL 02-17-2017 [facility] NOT [facility] ELSEWHERE CLASSIFIED R0602 SHORTNESS 02-17-2017 [facility] OF [facility]ATH [facility]ICAL [facility] R918 OTHER 02-17-2017 [facility] NONSPECIFIC [facility]ICAL ABNORMAL [facility] FINDING OF LUNG FIELD E785 HYPERLIPIDE 02-15-2017 [facility] MACIEL PHYSICIANS UNSPECIFIED GROUP G41986 ASHD HOOP[place] 02-15-2017 [facility] COR ART PHYSICIANS W/UNSTABLE GROUP ANGINA PECTORIS I6529 OCCLUSION & 02-15-2017 [facility] STENOSIS PHYSICIANS UNSPECIFIED GROUP CAROTID ARTERY N183 CHRONIC 02-15-2017 [facility] KIDNEY PHYSICIANS DISEASE GROUP STAGE 3 MODERATE R05 COUGH 02-15-2017 [facility] 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 [facility] PHYSICIANS AORTOCORONA GROUP RY BYPASS GRAFT R110 NAUSEA 02-14-2017 [facility] R410 DISORIENTAT 02-14-2017 [facility] ION PHYSICIANS, UNSPECIFIED PLLC R4182 ALTERED 02-14-2017 [facility] STATUS [facility] UNSPECIFIED R5381 OTHER 02-14-2017 [facility] R7989 OTHER SPEC 02-14-2017 [facility] ABNORMAL PHYSICIANS, FINDINGS PLLC BLOOD CHEMISTRY M7989 OTHER 02-04-2017 [facility] SPECIFIED MEDICAL SOFT TISSUE IMAGING ASS DISORDERS D58088G LACERATION 02-04-2017 A Adonis SIMMONS W/O FOREIGN PSC BODY LT LOW LEG SBSQT ENC E6416OH UNS INJURY 02-04-2017 [facility] RT LOWER MEDICAL LEG INITIAL IMAGING ASS ENCOUNTER Q2410ES UNS INJURY 02-04-2017 [facility] LEG INC SUBSEQUENT ENCOUNTER Z73OEQT FALL FROM 02-04-2017 A Adonis VELASQUEZ MD PSC SUBSEQUENT ENCOUNTER Z23 ENCOUNTER 02-04-2017 A Adonis CONWAY MD PSC IMMUNIZATIO N D649 ANEMIA 01-23-2017 [facility] UNSPECIFIED PHYSICIANS, PLLC R42186H LACERATION 01-23-2017 [facility] W/O FOREIGN PHYSICIANS, BODY LT PLLC LOW LEG INIT ENC O32838 OTHER LONG 01-23-2017 [facility] CURRENT INC DRUG THERAPY E538 DEFICIENCY 01-20-2017 A Adonis SIMMONS OF [place] PSC SPECIFIED B GROUP VITAMINS M1990 UNSPECIFIED 01-20-2017 A Adonis SIMMONS MD PSC OSTEOARTHRI TIS UNSPECIFIED SITE M3099RK OTHER SPEC 01-19-2017 [facility] AMBULANCE [...] G20 PARKINSONS 12-23-2016 [facility] SERVICE B72808 ASHD [place] 12-21-2016 [facility] W/[facility] P ANGINA PECTORIS V50990 ATHEROSCLER 12-21-2016 [facility] P ARTERY CABG W/[facility] AP R079 CHEST PAIN 12-21-2016 [facility]NSPECIFIED [facility] R531 WEAKNESS 12-21-2016 [facility] P R5383 OTHER 12-21-2016 [facility] E039 HYPOTHYROID 12-08-2016 [...] BACK 10-07-2015 A Adonis SIMMONS PAIN PSC F64427 PAIN IN 08-06-2015 [facility] RIGHT HIP [facility]INGS R296 REPEATED 06-06-2015 [facility] [place] [facility]- G250 ESSENTIAL 05-13-2015 [facility] Medications Na ND Rx Da [...] -2 -2 0. D 66 SS ti AR 63 0- 8- 00 CA 58 ON ve N 79 20 20 0 RE 02 D3 [address] 1 PH EP 2, AR HE 00 MA N 0 CY A UN IT LL C SO FT GE L 00 07 07 0 18 18 ME 14 BE Ac TA 90 -2 -2 0. D 67 SS ti AR 44 7- 7- 00 CA 72 ON ve N 21 20 20 0 RE 90 B- [address] 12 3 PH EP AR HE 1, MA N 00 CY A 0 MC LL G C TA BL ET 00 07 07 0 10 10 ME 14 BE Ac TA 53 -2 -2 0. D 63 SS ti AR 63 0- 0- 00 CA 48 ON ve N 79 20 20 0 RE 12 D3 [address] 1 PH EP 2, AR HE 00 MA N 0 CY A UN IT LL C SO FT GE L 00 12 01 0 60 6 ME 12 BE Ac TA 53 -2 -2 .0 D 05 SS ti AR 63 9- 5- 00 CA 55 ON [...] 9- 8- .0 CA 14 ON ve MD 04 20 20 00 RE 37 OT [address] EC 4 PH EP T AR HE CR MA N EA CY A M LL C BA 11 12 12 0 14 15 ME 11 BE Ac ZA 70 -2 -2 20 D 97 SS ti 10 9- 9- .0 CA 38 ON ve MD 04 20 20 00 RE 56 OT [...] -2 -2 0. D 97 SS ti AR 63 9- 9- 00 CA 38 ON [...] Procedure DOS Code Location Performer Comment ECG 79585 [facility] ROUTINE 7 PHYSICIAN ECG S GROUP W/LEAST 12 LDS I&R ONLY SBSQ 58083 [place] [address] PHYSICIAN CARE/DAY S GROUP 15 MINUTES RADIOLOGI 44399 [facility] EXAM 7 MEDICAL CHEST 2 IMAGING VIEWS ASS FRONTAL&L ATERAL SBSQ 95886 [place] [address] PHYSICIAN CARE/DAY S GROUP 15 MINUTES INITIAL 13608 [place] [address] PHYSICIAN CARE/DAY S GROUP 70 MINUTES RADIOLOGI 17387 [facility] 7 MEDICAL EXAMINATI IMAGING [place] [address] [facility] TRLUML 7 PHYSICIAN CORONARY S GROUP STENT W/ANGIO ONE ART/BRNCH CATH PLMT 15325 [facility] L 7 PHYSICIAN HRT/ARTS/ S GROUP GRFTS WNJX & ANGIO IMG S&I ECG 08264 [facility] ANDERSON ROUTINE 7 PHYSICIAN ECG S, PLLC W/LEAST 12 LDS I&R ONLY RADIOLOGI 59910 [facility] 7 MEDICAL EXAMINATI IMAGING [place] [address] [facility] JU[facility] HEAD/BRAI 7 MEDICAL N W/O IMAGING CONTRAST ASS MATERIAL ADMINISTR G0008 A Adonis HUNTER ATION OF 7 [place] INFLUENZA PSC VIRUS VACCINE RADIOLOGI 43376 [facility] 7 MEDICAL EXAMINATI IMAGING ON TIBIA ASS & F[place]ULA 2 [place] [address] A Adonis HUNTER VACCINE 7 [place] PRESERV PSC FREE INCREASED AG CONTENT IM DRESSING 83039 A Adonis HUNTER CHANGE 7 [place] UNDER PSC ANESTHESI A BLOOD 46240 [facility] COUNT 7 [facility] COMPLETE INC INC AUTO&AUTO DIFRNTL WBC CUL BACT 64850 [facility] XCPT 7 [facility] URINE INC INC BLOOD/STO OL AEROBIC ISOL CUL BACT 00315 [facility] AEROBIC 7 [facility] ADDL INC INC METHS DEFINITIV E EA ISOL COLLECTIO 05161 [facility] N VENOUS 7 [facility] BLOOD INC INC VENIPUNCT URE SUSCEPTIB 27089 [facility] LTY STDY 7 [facility] ANTIMICRB INC INC IAL MICRO/AGA R DILUTJ INJECTION J3301 A Adonis HUNTER 7 [place] TRIAMCINO PSC LONE ACETONIDE NOS 10 MG COLLECTIO 55411 A Adonis HUNTER N VENOUS 7 [place] BLOOD PSC VENIPUNCT URE BLOOD 52489 A Adonis HUNTER COUNT 7 [place] COMPLETE PSC AUTO&AUTO DIFRNTL WBC INJECTION J3420 A Adonis HUNTER VIT B-12 7 [place] PSC CYANOCOBA ALETA TO 1000 MCG THERAPEUT 85847 A Adonis HUNTER IC 7 [place] PROPHYLAC PSC TIC/DX INJECTION SUBQ/IM INJECTION J1030 A Adonis SIMMONS MD METHYLPRE PSC DNISOLONE ACETATE 40 MG GROUND A0425 [facility] ALLRED MILEAGE 7 AMBULANCE AMBULANCE PER SERVICE SERVICE STATUTE MILE AMB A0427 [facility] 7 AMBULANCE AMBULANCE ALS SERVICE SERVICE EMERGENCY TRANSPORT LEVEL 1 SMPL RPR 45654 [facility] SCALP/NEC 7 [facility] K/AX/GWENDOLYN INC INC T/TRUNK 12.6-20.0 CM TDAP 24046 [facility] VACCINE 7 7 [facility] YRS/> IM INC INC IM ADM 04602 [facility] PRQ ID 7 [facility] SUBQ/IM INC INC NJXS 1 VACCINE O2 CONC 1 E1390 [facility] DEANGELO DEL PORT 7 [place] MAN[place] 85%/>02 INC- INC- CONC AT [facility] FLW RATE CYANOCOBA 73224 COMBINED COMBINED ALETA 7 PHYSICIAN PHYSICIAN VITAMIN S LA S LA B-12 BLOOD 89615 COMBIN[facility] COMBINED COUNT 7 PHYSICIAN PHYSICIAN COMPLETE S LA S LA AUTO&AUTO DIFRNTL WBC TRAVEL [address] MED 7 PHYSICIAN PHYSICIAN NEC LAB S LA S LA SPEC; PRORAT ACTL MILE BASIC 96696 COMBINED COMBINED METABOLIC 7 PHYSICIAN PHYSICIAN PANEL S LA S LA CALCIUM TOTAL COLLECTIO 52131 COMBINED COMBINED N VENOUS 7 PHYSICIAN PHYSICIAN BLOOD S LA S LA VENIPUNCT URE O2 CONC 1 E1390 [facility] DEANGELO DEL PORT 7 [place] MAN[place] 85%/>02 INC- INC- CONC AT [facility] FLW RATE SBSQ 03384 [facility] 7 PHYSICIAN CARE/DAY S GROUP 15 MINUTES AMBULANCE A0428 [facility] 7 AMBULANCE AMBULANCE BLS SERVICE SERVICE NONEMERGE NCY TRANSPORT GROUND A0425 [facility] 7 AMBULANCE AMBULANCE PER SERVICE SERVICE STATUTE MILE ECG 86498 [facility] WATTS JR ROUTINE 7 [facility] W/LEAST P 12 LDS I&R ONLY GROUND A0425 [facility] 7 AMBULANCE AMBULANCE PER SERVICE SERVICE STATUTE MILE RADIOLOGI 80375 ELIZABETH Lamb 7 MEDICAL EXAMINATI IMAGING ON CHEST ASS SINGLE VIEW FRONTAL AMB A0427 [facility] 7 AMBULANCE AMBULANCE ALS SERVICE SERVICE [place] [address] ELIZABETH JUAREZ HEAD/BRAI 7 MEDICAL N W/[place] [address] [facility] THYROID 7 [facility] STIMULATI [place] [address] [facility] THYROID 7 [facility] STIMULATI [place] [address] [facility] FREE 7 [facility] CH[facility]I THYROXINE HOLDINGS HOLDINGS BASIC 54654 [facility] METABOLIC 7 [facility] PANEL HOLDINGS HOLDINGS CALCIUM TOTAL CYANOCOBA 70158 [facility] ALETA 7 [facility] CHIDI VITAMIN HOLDINGS HOLDINGS B-12 SEAT E0156 [facility] H[facility]TER ATTACHMEN 7 HOME HOME T WALKER MEDICAL MEDICAL EQUIPME EQUIPME WALKER E0143 [facility] HUNTER FOLDING 7 HOME HOME WHEELED MEDICAL MEDICAL ADJUSTABL EQUIPME EQUIPME [place] [address] [facility] FREE 7 [facility] [place] [address] [facility] THYROID 7 [facility] CHIDI STIMULATI HOLDINGS HOLDINGS NG HORMONE TSH BASIC 14933 LAB [facility] WILLY METABOLIC 7 [facility] PANEL HOLDINGS HOLDINGS CALCIUM TOTAL BASIC 54643 LAB [facility] WILLY METABOLIC 6 CHIDI CHIDI PANEL [place] [address] [facility] LAB WILLY THYROID 6 CHIDI CHIDI STIMULATI [place] [address] [facility] WILLY THYROID 6 [facility] CHIDI STIMULATI HOLD[place] [address] [facility] LAB WILLY FREE 6 [facility] CHIDI THYROXINE HOLDINGS HOLDINGS BASIC 63917 LAB [facility] LAB WILLY METABOLIC 6 CHIDI CHIDI PANEL HOLDINGS HOLDINGS CALCIUM TOTAL CYANOCOBA 10903 LAB [facility] LAB WILLY ALETA 6 [facility] VITAMIN HOLDINGS HOLDINGS B-12 BASIC 55137 LAB [facility] WILLY METABOLIC 6 [facility] CHIDI PANEL [place] [address] [facility]Y FREE 6 [facility] [place] [address] [facility] THYROID 6 [facility] CHIDI STIMULATI HOLDINGS HOLDINGS NG HORMONE TSH DUPLEX 81809 [facility] 6 MEDICAL JONELLE EXTRACRAN IMAGING [place] [address] [facility] THYROID 6 DIAGNOSTI DIAGNOSTI STIMULATI CS CS NG INCORPOR[place] [address] [facility] FREE 6 DIAGNOSTI DIAGNOSTI THYROXINE CS CS INCORPORA INCORPORA T T COMPREHEN 86940 [facility] SIVE 6 DIAGNOSTI DIAGNOSTI METABOLIC CS CS [place] [address] [facility] FERRITIN 6 DIAGNOSTI DIAGNOSTI CS CS INCORPORA INCORPORA T T THERAPEUT 20239 A Adonis HUNTER IC 6 [facility] PROPHYLAC PSC TIC/DX INJECTION SUBQ/IM INJ J0702 A Adonis HUNTER BETAMETHA 6 [facility] SONE PSC ACETATE & PHOSPHATE 3 MG INJECTION J1030 A Adonis HUNTER 6 [facility] [place] METHYLPRE PSC DNISOLONE ACETATE 40 MG INJECTION J3420 A Adonis HUNTER VIT B-12 6 [facility] PSC CYANOCOBA ALETA TO 1000 MCG BLOOD 09222 [facility] COUNT 6 DIAGNOSTI DIAGNOSTI COMPLETE CS CS AUTO&AUTO INCORPORA INCORPORA DIFRNTL T T WBC CYANOCOBA 59837 [facility] WILLY ALETA 6 [facility] CH[facility]I VITAMIN HOLDINGS [place] B-[address] [place] [address] [facility] FREE 6 [facility] CHIDI [place]RO[place] [address] LAB [facility] WILLY THYROID 6 [facility] CHIDI STIMULATI HOLDINGS HOLDINGS NG HORMONE TSH BASIC 64106 [facility] METABOLIC 6 [facility]I PANEL HOLDINGS HOLDINGS CALCIUM TOTAL Encounters Encounter Start End Date Code Location Performer Type Date OFFICE 55711 [facility] NATHAN OUTPATIEN 7 7 PHYSICIAN T VISIT S GROUP 15 MINUTES OFFICE 67841 Yakov TONG OUTPATIEN 7 7 [facility] T VISIT PSC 15 MINUTES EMERGENCY 60416 [facility] ANDRESON DEPT 7 7 PHYSICIAN VISIT S, PLLC HIGH SEVERITY& THREAT FUNCJ OFFICE 22887 Yakov HUNTER OUTPATIEN 7 7 [facility] T VISIT PSC 15 MINUTES HOSPITAL [facility] - 7 7 [facility] OUTPATIEN INC T OFFICE 83885 Yakov TAY 7 7 [facility] T VISIT PSC 15 MINUTES HOSPITAL [facility] - 7 7 [facility] OUTPATIEN INC T EMERGENCY 39867 [facility] 7 7 [facility] DEPARTMEN INC T VISIT LOW/MODER SEVERITY EMERGENCY 80994 AISHA ROWE 7 7 PHYSIC[facility] HIGH/URGE NT SEVERITY OFFICE 59070 Yakov TAY 7 7 [facility] T VISIT PSC 15 MINUTES EMERGENCY 24858 [facility] HIGH/URGE NT SEVERITY [facility] - 7 7 [facility] OUTPATIEN INC T EMERGENCY 21630 AISHA ANDRE 7 [address] [facility] T VISIT MODERATE SEVERITY [facility] INPATIENT 7 7 [facility] 7 [facility] - 6 6 [facility] OUTPATIEN INC T OFFICE 65259 Yakov TAY 6 6 [facility] T VISIT PSC 15 MINUTES [facility] FAC[facility] 6 6 [facility] - OTHER INC- [facility] FACILITY 5 5 [facility] - OTHER INC- OFFICE 65024 [facility] 5 N T NEW 45 NEUROLOGY MINUTES
--- OUTSIDE RECORDS SUMMARY | 2017-04-04 14:06 | External Medical Summary Rpt | CCD ---
Demographics Preferred Language Yi Marital Status Unknown Mormon Affiliation Unknown Race Unknown Ethnic Group Unknown Author Author , VIRGINIA COLEMAN Address Unknown Phone Immunization Unable to retrieve immunization data due to connection failure with Immunization Registry. Please try again later.
--- OUTSIDE RECORDS SUMMARY | 2017-04-04 14:06 | External Medical Summary Rpt | CCD ---
Demographics Preferred Language Sami Marital Status Unknown Denominational Affiliation Unknown Race Unknown Ethnic Group Unknown Author Author , VIRGINIA COLEMAN Address Unknown Phone Immunization Unable to retrieve immunization data due to connection failure with Immunization Registry. Please try again later.
--- OUTSIDE RECORDS SUMMARY | 2017-04-04 14:08 | External Medical Summary Rpt ---
Author Author [facility] [employer], [facility] [employer] Organization [facility] [employer] Address Unknown Phone Unavailable Results Cobalamin (Vitamin B12) [Mass/volume] in Serum Observa Value Referen Units Interpr Notes Date tion ce etation Range Cobalamin 211 - 946 pg/mL No Performed Mar 14 (Vitamin informati at: CB 2017 6:54 B12) on in - [facility] AM [Mass/vol source ume] in data [place] [address] Serum 0 [place], [place] [id number] Commercial Estimator: Tian Holt PhD, Phone: [phone] Iron and TIBC Observa Value Referen Units Interpr Notes Date tion ce etation Range Iron 250 - 450 ug/dL No No Mar 14 binding informati informati 2017 6:54 capacity on in on in AM [Mass/vol source source ume] in data data Serum or Plasma Iron 118 - 369 ug/dL No No Mar 14 binding informati informati 2017 6:54 capacity. on in on in AM unsaturat source source ed data data [Mass/vol ume] in Serum or Plasma Iron 27 - 139 ug/dL No No Mar 14 [Mass/vol informati informati 2017 6:54 ume] in on in on in AM Serum or source source Plasma data data Iron 15 - 55 % Low No Mar 14 saturatio informati 2017 6:54 n [Mass] on in AM in Serum source or Plasma data Folate [Mass/volume] in Serum or Plasma Observa Value Referen Units Interpr Notes Date tion ce etation Range Folate >3.0 ng/mL No A serum Mar 14 [Mass/vol informati folate 2017 6:54 ume] in on in concentra AM Serum or source tion of Plasma data less than 3.1 ng/mL isconside red to represent clinical deficienc y. Basic metabolic panel in Blood Observa Value Referen Units Interpr Notes Date tion ce etation Range Urea 7 - 18 mg/dL High No Mar 14 nitrogen informati 2017 6:54 [Mass/vol on in AM ume] in source Serum or data Plasma Calcium 8.5 - mg/dL Normal No Oct 9 [Mass/vol 10.1 informati 2017 6:54 ume] in on in AM Serum or source Plasma data Chloride 98 - 107 mmoL/L Normal No Oct 9 [Moles/vo informati 2016 6:54 lume] in on in AM Serum or source Plasma data Carbon 21.0 - mmoL/L Normal No Oct 9 dioxide, 32.0 informati 2017 6:54 total on in AM [Moles/vo source lume] in data Serum or Plasma Creatinin 0.55 - mg/dL High No Oct 9 e 1.02 informati 2016 6:54 [Mass/vol on in AM ume] in source Serum or data Plasma Creatinin 50 - 200 ML/MIN Low No Oct 9 e renal informati 2017 6:54 clearance on in AM source predicted data by Cockcroft -Gault formula Estimated 59- ML/MIN Low REFERENCE Oct 9 RANGE: 2017 6:54 glomerula >60 AM r ML/MIN/1. filtratio 73 SQUARE n rate METERSIf (GF this patient is -A merican, then multiply theresult by 1.210. Glucose 74 - 106 mg/dL Normal No Mar 9 [Mass/vol informati 2016 6:54 ume] in on in AM Serum or source Plasma data Potassium 3.5 - 5.1 mmoL/L Normal No Mar 9 informati 2016 6:54 [Moles/vo on in AM lume] in source Serum or data Plasma Sodium 136 - 145 mmoL/L Normal No Mar 9 [Moles/vo informati 2016 6:54 lume] in on in AM Serum or source Plasma data Ferritin [Mass/volume] in Serum or Plasma Observa Value Referen Units Interpr Notes Date tion ce etation Range Ferritin 8 - 388 ng/mL Normal No Mar 9 [Mass/vol informati 2016 6:54 ume] in on in AM Serum or source Plasma data CBC W Auto Differential panel in Blood Observa Value Referen Units Interpr Notes Date tion ce etation Range Basophils 0 - 0.2 K/MM3 Normal No Oct 9 informati 2016 6:54 [#/volume on in AM ] in source Blood by data Automated count Basophils 0.1 - 2.0 % Normal No Oct 9 /100 informati 2017 6:54 leukocyte on in AM s in source Blood by data Automated count Eosinophi 0.0 - 0.4 K/mm3 Normal No Mar 14 ls informati 2016 6:54 [#/volume on in AM ] in source Blood by data Automated count Eosinophi 0.1 - % Normal No Mar 14 ls/100 12.0 informati 2017 6:54 leukocyte on in AM s in source Blood by data Automated count Granulocy 1.8 - 7.8 K/mm3 Normal No Mar 14 olya informati 2016 6:54 [#/volume on in AM ] in source Blood by data Automated count Granulocy 37.0 - % Normal No Mar 14 olya/100 80.0 informati 2016 6:54 leukocyte on in AM s in source Blood by data Automated count Hematocri 37.0 - % Low No Mar 14 t [Volume 47.0 informati 2016 6:54 on in AM Fraction] source of Blood data Hemoglobi 12.2 - g/dL Low No Mar 14 n 16.2 informati 2016 6:54 [Mass/vol on in AM ume] in source Blood data Lymphocyt 0.7 - 4.5 K/mm3 Normal No Mar 14 es informati 2016 6:54 [#/volume on in AM ] in source Unspecifi data ed specimen by Automated count Lymphocyt 10 - 50.0 % Normal No Mar 14 es informati 2016 6:54 [#/volume on in AM ] in source Unspecifi data ed specimen by Automated count Erythrocy 27 - 31.2 pg Normal No Mar 14 te mean informati 2016 6:54 corpuscul on in AM ar source hemoglobi data n [Entitic mass] Erythrocy 31.8 - g/dl Low No Mar 14 te mean 35.4 informati 2016 6:54 corpuscul on in AM ar source hemoglobi data n concentra tion [Mass/vol ume] by Automated count Erythrocy 82.2 - fl Normal No Mar 14 te mean 97.8 informati 2016 6:54 corpuscul on in AM ar volume source [Entitic data volume] by Automated count Monocytes 0.1 - 1.0 K/mm3 Normal No Mar 14 informati 2016 6:54 [#/volume on in AM ] in source Blood by data Automated count Monocytes 1.7 - 9.3 % Normal No Oct 9 /100 informati 2016 6:54 leukocyte on in AM s in source Blood by data Automated count Platelet 7.4 - fl Normal No Mar 14 mean 10.4 informati 2016 6:54 volume on in AM [Entitic source volume] data in Blood by Automated count Platelets 142 - 424 K/mm3 Normal No Mar 9 informati 2016 6:54 [#/volume on in AM ] in source Blood data Erythrocy 4.2 - 5.4 M/mm3 Low No Mar 14 olya informati 2016 6:54 [#/volume on in AM ] in source Amniotic data fluid Erythrocy 11.5 - % Normal No Mar 14 te 17.5 informati 2016 6:54 distribut on in AM ion width source [Entitic data volume] by Automated count Leukocyte 4.8 - K/MM3 Normal No Mar 14 s 10.8 informati 2016 6:54 [#/volume on in AM ] in source Blood data Reticulocytes [#/volume] in Blood by Automated count Observa Value Referen Units Interpr Notes Date tion ce etation Range Reticuloc 0.9 - 3.2 % Normal No Mar 14 ytes informati 2016 6:54 [#/volume on in AM ] in source Blood by data Automated count Cardiac enzymes Observa Value Referen Units Interpr Notes Date tion ce etation Range Creatine 0 - 4.0 U/L Normal No Mar 8 kinase.MB inform2016 /Creatine on in 12:34 PM source kinase.to data sergio [Ratio] in Serum or Plasma Creatine 0.0 - 3.6 ng/mL Normal No Mar 8 kinase.MB informati 2016 on in 12:34 PM [Mass/vol source ume] in data Serum or Plasma Creatine 26 - 192 U/L Low No Mar 8 kinase inform2016 [Enzymati on in 12:34 PM c source [...] Albumin 3.4 - 5.0 gm/dL Low No Oct 8 [Mass/vol informati 2017 ume] in on in 12:34 PM Serum or source Plasma data Alkaline 46 - 116 U/L Normal No Oct 8 phosphata informati 2017 se on in 12:34 PM [Enzymati source c data activity/ volume] in Serum or Plasma Bilirubin 0.2 - 1.0 mg/dL Normal No Oct 8 .total informati 2017 [Mass/vol on in 12:34 PM ume] in source Serum or data Plasma Urea 7 - 18 mg/dL High No Oct 8 nitrogen informati 2017 [Mass/vol on in 12:34 PM ume] in source Serum or data Plasma Calcium 8.5 - mg/dL Normal No Oct 8 [Mass/vol 10.1 informati 2017 ume] in [...] gm/dL Normal No Oct 8 [Mass/vol informati 2017 ume] [...] 145 mmoL/L Normal No Oct 8 [Moles/vo 2016 lume] in on in 12:34 PM Serum or source Plasma data Aspartate 15 - 37 U/L Low No Mar 132016 aminotran on in 12:34 PM sferase source [Enzymati data c activity/ volume] in Serum or Plasma Alanine 12 - 78 U/L Low No Mar 13 aminotran 2016 sferase on in 12:34 PM [Enzymati source c data activity/ volume] in Serum or Plasma Protein 6.4 - 8.2 gm/dL Low No Mar 8 [Mass/vol informati 2016 ume] in on in 12:34 PM Serum or source Plasma data CBC W Auto Differential panel in Blood Observa Value Referen Units Interpr Notes Date tion ce etation Range Basophils 0 - 0.2 K/MM3 Normal No Mar 132016 [#/volume on in 12:34 PM ] in source Blood by data Automated count Basophils 0.1 - 2.0 % Normal No Mar 13 /2016 leukocyte on in 12:34 PM s in source Blood by data Automated count Eosinophi 0.0 - 0.4 K/mm3 Normal No Mar 13 ls 2016 [#/volume on in 12:34 PM ] in source Blood by data Automated count Eosinophi 0.1 - % Normal No Mar 13 ls/100 12.0 2016 leukocyte on in 12:34 PM s in source Blood by data Automated count Granulocy 1.8 - 7.8 K/mm3 Normal No Mar 13 olya 2016 [#/volume on in 12:34 PM ] in source Blood by data Automated count Granulocy 37.0 - % Normal No Mar 13 olya/100 80.0 2016 leukocyte on in 12:34 PM s in source Blood by data Automated count Hematocri 37.0 - % Low No Mar 13 t [Volume 47.0 2016 on in 12:34 PM Fraction] source of Blood data Hemoglobi 12.2 - g/dL Low No Mar 13 n 16.2 2016 [Mass/vol on in 12:34 PM ume] in [...] 27 - 31.2 pg Normal No Mar 8 te mean 2016 corpuscul on in 12:34 PM ar source hemoglobi data n [Entitic mass] Erythrocy 31.8 - g/dl Low No Mar 13 te mean 35.4 2016 corpuscul on in 12:34 PM ar source hemoglobi data n concentra tion [Mass/vol ume] by Automated count Erythrocy 82.2 - fl Normal No Mar 13 te mean 97.8 2016 corpuscul on in 12:34 PM ar volume source [Entitic data volume] by Automated count Monocytes 0.1 - 1.0 K/mm3 Normal No Mar 8 2016 [#/volume on in 12:34 PM ] in source Blood by data Automated count Monocytes 1.7 - 9.3 % Normal No Mar 8 /100 inform2016 leukocyte on in 12:34 PM s in source Blood by data Automated count Platelet 7.4 - fl Normal No Mar 13 mean 10.4 2016 volume on in 12:34 PM [Entitic source volume] data in Blood by Automated count Platelets 142 - 424 K/mm3 Normal No Mar 8 2016 [#/volume on in 12:34 PM ] in source Blood data Erythrocy 4.2 - 5.4 M/mm3 Low No Mar 8 olya 2016 [#/volume on in 12:34 PM ] in source Amniotic data fluid Erythrocy 11.5 - % Normal No Mar 13 te 17.5 2016 distribut on in 12:34 PM ion width source [Entitic data volume] by Automated count Leukocyte 4.8 - K/MM3 Normal No Mar 8 s 10.8 2016 [#/volume on in 12:34 PM ] in source Blood data Basic metabolic panel in Blood Observa Value Referen Units Interpr Notes Date tion ce etation Range Urea 7 - 18 mg/dL High No Sep 15 nitrogen informati 2016 6:45 [Mass/vol on in AM ume] in source Serum or data Plasma Calcium 8.5 - mg/dL Normal No Sep 15 [Mass/vol 10.1 informati 2016 6:45 ume] in on in AM Serum [...] mg/dL Normal No Sep 15 [Mass/vol informati 2016 6:45 ume] in on in AM Serum [...] K/mm3 Normal No Sep 14 ls informati 2016 6:00 [#/volume on in AM [...] Normal No Sep 14 olya/100 80.0 informati 2016 6:00 leukocyte on in AM [...] Normal No Sep 14 te mean informati 2017 6:00 corpuscul on in AM ar source hemoglobi data n [Entitic mass] Erythrocy 31.8 - g/dl Normal No Sep 14 te mean 35.4 informati 2017 6:00 corpuscul on in AM ar source hemoglobi data n concentra tion [Mass/vol ume] by Automated count Erythrocy 82.2 - fl Normal No Sep 14 te mean 97.8 informati 2016 6:00 corpuscul on in AM ar volume source [Entitic data volume] by Automated count Monocytes 0.1 - 1.0 K/mm3 Normal No Sep 14 informati 2017 6:00 [...] M/mm3 Low No Sep 14 olya informati 2017 6:00 [...] Date tion ce etation Range 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: PER [place] PROTOCOL Cholester < 200 mg/dL No No [...] mg/dL Normal No Sep 13 berenice informati 2017 5:45 [Moles/vo on in AM [...] High No Sep 12 kinase.MB alert informati 2017 6:22 /Creatine on in AM source kinase.to data sergio [Ratio] in Serum or Plasma Creatine 0.0 - 3.6 ng/mL High Feb 12 kinase.MB alert 2017 6:22 CRITICAL AM [Mass/vol RESULTS ume] in Serum or RESU Plasma LTS CALLED TO: TONYA.CAV 02/15/17 0850 Musa,Rich vikash Creatine 26 - 192 U/L Normal No Sep 12 kinase informati 2017 6:22 [Enzymati on in AM c source activity/ data volume] in Serum or Plasma Troponin 0.00 - ng/mL High Feb 12 I.cardiac 0.06 2017 6:22 CRITICAL AM [Mass/vol RESULTS ume] in Serum or RESU Plasma LTS CALLED TO: TONYA.CAV 02/15/17 0850 Musa,Rich vikash> 0.5 IS CONSISTEN T WITH MYOCARDIA L ISCHEMIA OR INFARCTIO N Natriutietic peptide B [Mass/volume] in Serum or Plasma Observa Value Referen Units Interpr Notes Date tion ce etation Range Natriutie 0 - 100 pg/mL High No Sep 12 tic informati 2017 6:22 peptide B on in AM source [...] Low No Sep 11 n 16.2 informati 2016 6:30 [Mass/vol on in PM ume] in [...] No Sep 11 te mean 35.4 informati 2017 6:30 corpuscul on in PM [...] Normal No Sep 11 mean 10.4 informati 2017 6:30 volume on in PM [Entitic source volume] data in Blood by Automated count Platelets 142 - 424 K/mm3 Normal No Sep 11 informati 2017 6:30 [#/volume on in PM ] in source Blood data Erythrocy 4.2 - 5.4 M/mm3 Low No Sep 11 olya informati 2017 6:30 [#/volume on in PM ] in source Amniotic data fluid Erythrocy 11.5 - % Normal No Sep 11 te 17.5 informati 2017 6:30 distribut on in PM ion width source [Entitic data volume] by Automated count Leukocyte 4.8 - K/MM3 Normal No Sep 11 s 10.8 informati 2017 6:30 [#/volume on in PM [...] Plasma Troponin 0.00 - ng/mL High Feb 14 I.cardiac 0.06 2016 5:30 CRITICAL PM [Mass/vol RESULTS ume] in Serum or RESU Plasma LTS CALLED TO: TONYA.CLA 02/14/171811 [place]> 0.5 IS CONSISTEN T WITH MYOCARDIA [...] Normal No Sep 11 lobulin informati informati 2016 5:30 [Mass on in on in PM ratio] in source source Serum or data data Plasma Albumin 3.4 - 5.0 gm/dL Normal No Sep 11 [Mass/vol informati 2017 5:30 ume] in on in PM Serum or source Plasma data Alkaline 46 - 116 U/L Normal No Sep 11 phosphata informati 2016 5:30 se on in PM [Enzymati source [...] Normal No Sep 11 dioxide, 32.0 informati 2016 5:30 total on in PM [Moles/vo source lume] in data Serum or Plasma Creatinin 0.55 - mg/dL Normal No Sep 11 e 1.02 informati 2016 5:30 [Mass/vol on in PM ume] in source Serum or data Plasma Creatinin 50 - 200 ML/MIN Low No Sep 11 e renal informati 2016 5:30 clearance on in PM source predicted data by Cockcroft -Gault formula Estimated 59- ML/MIN Low REFERENCE Sep 11 RANGE: 2017 5:30 glomerula >60 PM r ML/MIN/1. filtratio 73 SQUARE n rate METERSIf (GF this patient is -A merican, then multiply theresult by 1.210. Globulin 1.3 - 3.2 gm/dL High No Sep 11 [Mass/vol informati 2016 5:30 ume] in on in PM Serum source data Glucose 74 - 106 mg/dL High No Sep 11 [Mass/vol informati 2016 5:30 ume] in on in [...] U/L Low No Sep 11 aminotran informati 2016 5:30 sferase on in PM [Enzymati source [...] No No Sep 11 casts informa informa 2016 [Presen tion in tion [...] Specific 1.005 - No Normal No Sep gravity 1.030 informati informati 2017 5:00 of [...] No No Sep 11 [Mass/vol informati informati 2016 5:00 ume] in on in on in PM Urine by source source Automated data data test strip Specific 1.005 - No Normal No Feb 11 gravity 1.030 informati informati 2016 5:00 of Urine on in on in PM source source data data Urobili 0.2 NEG E.U./dL No No Sep 11 nogen informa informa 2016 [Presen tion [...] 0.1 - 2.0 % Normal No Jan 232016 leukocyte on in 11:00 AM s in source Blood by data Automated count Eosinophi 0.0 - 0.4 K/mm3 Normal No Jan 23 ls 2016 [#/volume on in 11:00 AM ] in source Blood by data Automated count Eosinophi 0.1 - % Normal No Jan 23 ls/100 12.0 2016 leukocyte on in 11:00 AM s [...] 50.0 % Normal No Jan 23 es inform2016 [#/volume on in 11:00 AM ] in source Unspecifi data ed specimen by Automated count Erythrocy 27 - 31.2 pg Normal No Jan 23 te mean inform2016 corpuscul on in 11:00 AM ar source hemoglobi data n [Entitic mass] Erythrocy 31.8 - g/dl Normal No Jan 23 te mean 35.4 inform2016 corpuscul on in 11:00 AM ar [...] % Normal No Jan 23 /100 informati 2017 leukocyte on in 11:00 AM s in source Blood by data Automated count Platelet 7.4 - fl Normal No Jan 23 mean 10.4 informati 2016 volume on in 11:00 AM [Entitic source volume] data in Blood by Automated count Platelets 142 - 424 K/mm3 Normal No Jan 23 inform2016 [#/volume on in 11:00 AM ] in source Blood data Erythrocy 4.2 - 5.4 M/mm3 Low No Jan 23 olya informati 2016 [#/volume on in 11:00 AM ] in source Amniotic data fluid Erythrocy 11.5 - % Normal No Jan 23 te 17.5 informati 2016 distribut on in 11:00 AM ion width source [Entitic data volume] by Automated count Leukocyte 4.8 - K/MM3 Normal No Jan 23 s 10.8 informati 2016 [#/volume on in 11:00 AM [...] Observa Value Referen Units Interpr Notes Date ti etation Range Creatine 0 - 4.0 U/L No Dec 22 kinase.MB informati informati 2016 [...] U/L Normal No Dec 22 kinase informati 2016 6:20 [Enzymati on in AM c source [...] Observa Value Referen Units Interpr Notes Date ti etation Range Basophils 0 - 0.2 K/MM3 Normal No Dec 22 inform2016 6:20 [#/volume [...] Normal No Dec 22 olya/100 80.0 informati 2017 6:20 leukocyte on in AM s in source Blood by data Automated count Hematocri 37.0 - % Normal No Dec 22 t [Volume 47.0 informati 2016 6:20 on in AM Fraction] source of Blood data Hemoglobi 12.2 - g/dL Normal No Dec 22 n 16.2 informati 2017 6:20 [Mass/vol on in AM ume] in source Blood data Lymphocyt 0.7 - 4.5 K/mm3 Normal No Dec 22 es informati 2017 6:20 [#/volume on in AM ] in source Unspecifi data ed specimen by Automated count Lymphocyt 10 - 50.0 % Normal No Dec 22 es informati 2017 6:20 [#/volume on in AM ] in source Unspecifi data ed specimen by Automated count Erythrocy 27 - 31.2 pg Normal No Dec 22 te mean informati 2016 6:20 corpuscul on in AM ar source hemoglobi data n [Entitic mass] Erythrocy 31.8 - g/dl Normal No Dec 22 te mean 35.4 informati 2017 6:20 corpuscul on in AM ar source hemoglobi data n concentra tion [Mass/vol ume] by Automated count Erythrocy 82.2 - fl Normal No Dec 22 te mean 97.8 informati 2017 6:20 corpuscul on in AM ar volume source [Entitic data volume] by Automated count Monocytes 0.1 - 1.0 K/mm3 Normal No Dec 22 informati 2017 6:20 [#/volume on in AM ] in source Blood by data Automated count Monocytes 1.7 - 9.3 % Normal No Dec 22 / informati 2017 6:20 leukocyte on in AM s in source Blood by data Automated count Platelet 7.4 - fl Normal No Dec 22 mean 10.4 informati 2017 6:20 volume on in AM [Entitic source volume] data in Blood by Automated count Platelets 142 - 424 K/mm3 Normal No Dec 22 informati 2017 6:20 [#/volume on in AM ] in source Blood data Erythrocy 4.2 - 5.4 M/mm3 Normal No Dec 22 olya informati 2017 6:20 [#/volume on in AM ] in source Amniotic data fluid Erythrocy 11.5 - % Normal No Dec 22 te 17.5 informati 2017 6:20 distribut on in AM ion width [...] - 2.0 % Normal No Dec 21 /100 informati 2017 5:00 leukocyte on in [...] Normal No Dec 21 te mean 97.8 inform2016 5:00 corpuscul on in PM ar volume source [Entitic data volume] by Automated count Monocytes 0.1 - 1.0 K/mm3 Normal No Dec 212016 5:00 [#/volume on in PM ] in source Blood by data Automated count Monocytes 1.7 - 9.3 % Normal No Dec 21 / inform2016 5:00 leukocyte on in PM s in [...] K/MM3 Normal No Dec 21 s 10.8 2016 5:00 [#/volume on in PM ] in source Blood data CBC W Auto Differential panel in Blood Observa Value Referen Units Interpr Notes Date tion ce etation Range Basophils 0 - 0.2 K/MM3 Normal No Dec 202016 [#/volume on in 11:55 AM ] in source Blood by data Automated count Basophils 0.1 - 2.0 % Normal No Dec 202016 leukocyte on in 11:55 AM s in [...] % Normal No Dec 20 olya/100 80.0 informati 2016 leukocyte on in 11:55 AM s in source Blood by data Automated count Hematocri 37.0 - % Normal No Dec 20 t [Volume 47.0 informati 2016 on in 11:55 AM Fraction] source [...] pg Normal No Dec 20 te mean inform2016 corpuscul on in 11:55 AM ar source [...] - 9.3 % Normal No Dec 20 / informati 2016 leukocyte on in 11:55 AM s in source Blood by data Automated count Platelet 7.4 - fl Normal No Dec 20 mean 10.4 informati 2016 volume on in 11:55 AM [Entitic source volume] data in Blood by Automated count Platelets 142 - 424 K/mm3 Normal No Dec 20 inform2016 [#/volume on [...] 116 U/L Normal No Dec 20 phosphata inform2016 se on in 11:55 AM [Enzymati source [...] No Dec 20 [Mass/vol informati informati informati 2016 ume] in on in on in on [...] Normal No Dec 20 Urine informati informati 2016 on in on in 11:20 AM source [...]
--- OUTSIDE RECORDS SUMMARY | 2017-04-04 14:08 | External Medical Summary Rpt ---
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
[2017-04-04 14:57] LABS: LYMPH # 1.3 K/mm3 (0.7-4.5); LYMPH % 9.6 % (10-50.0)
[2017-04-04 15:08] LABS: HEMOGLOBIN 6.2 g/dL (12.2-16.2)
--- OUTSIDE RECORDS SUMMARY | 2017-04-04 15:54 | External Medical Summary Rpt | CCD ---
Author Author , VIR[place] Organization [place] Address Unknown Phone [email or web address] Care Team Providers Care Data Reporting Analyst Name Role Phone A Adonis SIMMONS [...] Unavailable ELSA PEDRAZA, ELSA Unavailable Unavailable [facility], Unavailable Unavailable [facility] Unavailable Unavailable INC, [facility] Unavailable Unavailable H[facility]PITAL P, [facility], Unavailable Unavailable [facility] ANDERSON, ANDERSON Unavailable Unavailable [facility], [facility] KILPELA, KILPELA Unavailable Unavailable [facility] Unavailable Unavailable [facility], [facility] Unavailable Unavailable [facility], [facility] STEFANIE WATTS JR, JR Unavailable Unavailable [facility], [facility], Unavailable Unavailable PLL[facility], [facility], [facility] Unavailable Unavailable INCORPORAT, [...] Diagnosis DOS Provider Status I10 ESSENTIAL 03-01-2017 [facility] PRIMARY PHYSICIANS HYPERTENSIO GROUP N I2510 ASHD HOH 03-01-2017 [facility] 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 OLD 03-01-2017 [facility] MYOCARDIAL PHYSICIANS INFARCTION GROUP I255 ISCHEMIC 03-01-2017 [facility] CARDIOMYOPA PHYSICIANS THY GROUP I5021 ACUTE 03-01-2017 [facility] SYSTOLIC PHYSICIANS CONGESTIVE GROUP HEART FAILURE I509 HEART 03-01-2017 [facility] FAILURE PHYSICIANS UNSPECIFIED GROUP Z955 PRESENCE OF 03-01-2017 [facility] 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 I214 NON-ST 02-17-2017 [facility] ELEVATION PHYSICIANS MYOCARDIAL GROUP INFARCTION I5020 UNSPECIFIED 02-17-2017 [facility] SYSTOLIC PHYSICIANS CONGESTIVE GROUP HEART FAILURE J90 PLEURAL 02-17-2017 [facility] NOT [facility] ELSEWHERE CLASSIFIED R0602 SHORTNESS 02-17-2017 [facility] R918 OTHER 02-17-2017 [facility] NONSPECIFIC [facility] ABNORMAL [facility] FINDING OF LUNG FIELD E785 HYPERLIPIDE 02-15-2017 [facility] MACIEL PHYSICIANS UNSPECIFIED GROUP [id number] ASHD HOH 02-15-2017 [facility] COR ART PHYSICIANS W/UNSTABLE GROUP ANGINA PECTORIS I6529 OCCLUSION & 02-15-2017 [facility] STENOSIS PHYSICIANS UNSPECIFIED GROUP CAROTID ARTERY N183 CHRONIC 02-15-2017 [facility] KIDNEY PHYSICIANS DISEASE GROUP STAGE 3 MODERATE R05 COUGH 02-15-2017 [facility] 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 [facility] PH[facility]ANS AORTOCORONA GROUP RY BYPASS GRAFT R110 NAUSEA 02-14-2017 [facility] R410 DISORIENTAT 02-14-2017 [facility] ION [facility]YS[facility], UNSPECIFIED PLLC R4182 ALTERED 02-14-2017 [facility]US [facility] UNSPECIFIED R5381 OTHER 02-14-2017 [facility] R7989 OTHER SPEC 02-14-2017 [facility] ABNORMAL [facility], FINDINGS PLLC BLOOD CHEMISTRY M7989 OTHER 02-04-2017 [facility] SPECIFIED [facility] SOFT TISSUE IM[facility] ASS DISORDERS [id number] LACERATION 02-04-2017 A Adonis SIMMONS W/O FOREIGN PSC BODY LT LOW LEG SBSQT ENC K3420RC UNS INJURY 02-04-2017 [facility] RT [facility]OWER [facility] LEG INITIAL IMAGING ASS ENCOUNTER [id number] UNS INJURY 02-04-2017 [facility] LEG INC SUBSEQUENT ENCOUNTER [id number] FALL FROM 02-04-2017 A Adonis VELASQUEZ MD PSC SUBSEQUENT ENCOUNTER Z23 ENCOUNTER 02-04-2017 A Adonis CONWAY MD PSC IMMUNIZATIO N D649 ANEMIA 01-23-2017 [facility] UNSPECIFIED [facility]YSICIANS, PLLC [id number] LACERATION 01-23-2017 [facility] W/O FOREIGN PHYSICIANS, BODY LT PLLC LOW LEG INIT ENC S37250 OTHER LONG 01-23-2017 [facility] CURRENT INC DRUG THERAPY E538 DEFICIENCY 01-20-2017 A Adonis ANTONIO MD PSC SPECIFIED B GROUP VITAMINS M1990 UNSPECIFIED 01-20-2017 A Adonis SIMMONS MD PSC OSTEOARTHRI TIS UNSPECIFIED SITE S6607HM OTHER SPEC 01-19-2017 [facility] INJURIES [facility] AMBULANCE [...] G20 PARKINSONS 12-23-2016 [facility] SERVICE R61034 ASHD HOH 12-21-[address] [facility] [place] [facility] P ANGINA PECTORIS F44065 ATHEROSCLER 12-21-2016 [facility] P ARTERY CABG W/[facility] AP R079 CHEST PAIN 12-21-2016 [facility]PEC[facility] R531 WEAKNESS 12-21-2016 [facility] P R5383 OTHER 12-21-2016 [facility] E039 HYPOTHYROID 12-08-2016 [facility] UNSPECIFIED HOLDINGS E782 MIXED 11-17-2016 [facility] HYPERLIPIDE [facility] MACIEL HOLDINGS Z9181 HISTORY OF 08-18-2016 [facility] M542 CERVICALGIA 11-26-2015 [facility] M549 DORSALGIA 11-26-2015 [facility] UNSPECIFIED [facility] HOLDINGS R0989 OTH SPEC SX 10-15-2015 [facility] INVLV THE IMAGING ASS CIRC & RESP SYS E611 IRON 10-07-2015 [facility] M545 LOW BACK 10-07-2015 A Adonis SIMMONS PAIN PSC D26002 PAIN IN 08-06-2015 [facility] RIGHT HIP [facility] HOLDINGS R296 REPEATED 06-06-2015 [place] [place] INC- G250 ESSENTIAL 05-13-2015 [facility] NEUROLOG[facility] Allergies, Adverse Reactions, Alerts Clinical [...] 9- 8- .0 CA 14 ON ve NM 04 20 20 00 RE 37 OT [address] EC 4 PH EP T AR HE CR MA N EA CY A M LL C BA 11 12 12 0 14 15 ME 11 BE Ac ZA 70 -2 -2 20 D 97 SS ti 10 9- 9- .0 CA 38 ON ve NM 04 20 20 00 RE 56 OT [...] Order Detail nces retati t Range on Cardiac enzymes (04-04-2017 14:19) Serum = 10.6 0-4.0 complet or 017 U/L ed plasma 14:19 creatin e kinase MB (CK-M Serum = 1.8 0.0-3.6 complet or 017 ng/mL ed plasma 14:19 creatin e kinase MB measu Serum = 17 26-192 complet or 017 U/L ed plasma 14:19 creatin e kinase measure m Serum = 0.04 0.00-0. complet or 017 ng/mL 06 ed plasma 14:19 troponi n i.cardi ac measu Comprehensive metabolic panel (04-04-2017 14:19) Serum = 0.7 1.1-1.8 complet or 017 ed plasma 14:19 albumin /globul in mass ra Serum = 2.4 3.4-5.0 complet or 017 gm/dL ed plasma 14:19 albumin measure ment (mas Serum 1030-2 = 90 46-116 complet or 017 U/L ed plasma 14:19 alkalin e phospha tase karsten Serum 04-04-2 = 0.3 0.2-1.0 complet or 017 mg/dL ed plasma 14:19 total bilirub in measure m Serum 30-2 = 66 7-18 complet or 017 mg/dL ed plasma 14:19 urea nitroge n measure men Serum 04-04-2 = 8.8 8.5-10. complet or 017 mg/dL 1 ed plasma 14:19 calcium measure ment (mas Serum 04-04-2 = 106 98-107 complet or 017 mmoL/L ed plasma 14:19 chlorid e measure ment (mo Carbon 04-04-2 = 24 21.0-32 complet dioxide 017 mmoL/L .0 ed 14:19 measure ment Serum 04-04-2 = 1.6 0.55-1. complet or 017 mg/dL 02 ed plasma 14:19 creatin ine measure ment ( Estimat 04-04-2 = 32 50-200 complet ion of 017 ML/MIN ed creatin 14:19 ine renal clearan ce Estimat 04-04-2 = 30 59- complet ed 017 ML/MIN ed glomeru 14:19 lar filtrat ion rate (GF Comment: REFERENCE RANGE: >60 ML/MIN/1.73 SQUARE METERS Comment: If this patient is -Cymro, then multiply the Comment: result by 1.210. Serum 04-04-2 = 3.6 1.3-3.2 complet globuli 017 gm/dL ed n 14:19 measure ment (mass/v olume) Serum 04-04-2 = 137 74-106 complet or 017 mg/dL ed plasma 14:19 glucose measure ment (mas Serum 04-04-2 = 3.8 3.5-5.1 complet potassi 017 mmoL/L ed um 14:19 measure ment Serum 04-04-2 = 140 136-145 complet sodium 017 mmoL/L ed measure 14:19 ment Serum 30-2 = 10 15-37 complet or 017 U/L ed plasma 14:19 asparta te aminotr ansfera ALT 04-04-2 = 7 U/L 12-78 complet (SGPT) 017 ed ser/eliud 14:19 s Protein 10-30-2 = 6.0 6.4-8.2 complet total 017 gm/dL ed ser/eliud 14:19 s CBC w auto diff (04-04-2017 14:19) Baso % = 0.2 % 0.1-2.0 complet 017 ed 14:19 Automat = 0.0 0.0-0.4 complet ed 017 K/mm3 ed blood 14:19 eosinop hil count Automat = 0.1 % 0.1-12. complet ed 017 0 ed blood 14:19 eosinop hils/10 0 leukocy t Blood = 11.8 1.8-7.8 complet granulo 017 K/mm3 ed cytes 14:19 automat ed count (numb Granulo = 84.7 37.0-80 complet cyte 017 % .0 ed percent 14:19 age Blood = 20.2 37.0-47 complet hematoc 017 % .0 ed rit 14:19 (volume fractio n) Comment: CRITICAL RESULTS Comment: RESULTS CALLED TO: TONYA.DON 04/04/17 1508 Lilia Burton Blood = 6.2 12.2-16 complet hemoglo 017 g/dL .2 ed bin 14:19 measure ment (mass/v olum Comment: CRITICAL RESULTS Comment: RESULTS CALLED TO: TONYA.EAL 04/04/17 1507 Lilia Burton Absolut = 1.3 0.7-4.5 complet e 017 K/mm3 ed lymphoc 14:19 yte count Lymphoc = 9.6 % 10-50.0 complet yte 017 ed count, 14:19 blood, automat ed Mean = 27.2 27-31.2 complet corpusc 017 pg ed ular 14:19 hemoglo bin (MCH) determ Automat 10-30-2 = 30.8 31.8-35 complet ed 017 g/dl .4 ed erythro 14:19 cyte mean corpusc ular h Automat = 88.5 82.2-97 complet ed 017 fl .8 ed erythro 14:19 cyte mean corpusc ular v Absolut 2 = 0.8 0.1-1.0 complet e 017 K/mm3 ed monocyt 14:19 e count L[place] % 2 = 5.4 % 1.7-9.3 complet 017 ed 14:19 Automat 2 = 7.3 7.4-10. complet ed 017 fl 4 ed blood 14:19 platele t mean volume karsten Blood = 513 142-424 complet platele 017 K/mm3 ed t count 14:19 Red = 2.28 4.2-5.4 complet blood 017 M/mm3 ed cell 14:19 count Automat = 15.6 11.5-17 complet ed 017 % .5 ed erythro 14:19 cyte distrib ution width Blood = 13.9 4.8-10. complet leukocy 017 K/MM3 8 ed olya 14:19 count (number /volume ) Automat 2 = 0.0 0-0.2 complet ed 017 K/MM3 ed blood 14:19 basophi l count (count/ vo Lipase measurement (04-04-2017 14:19) Lipase = 220 73-393 complet measure 017 U/L ed ment 14:19 Whole blood INR measurement (04-04-2017 14:14) Comment: IS PATIENT ON ANTICOAGULANTS? N Whole = 1.06 0.9-1.1 complet blood 017 ed INR 14:14 measure ment Comment: INDICATION INR RANGE Comment: Comment: THERAPY FOR DVT, PE, ATRIAL FIB; 2.0 - 3.0 Comment: PROPHYLAXIS FOR VTE Comment: Comment: THERAPY FOR MECHANICAL HEART 2.5 - 3.5 Comment: VALVE; PREVENTION OF SYSTEMIC Comment: EMBOLISM SECONDARY TO AMI Prothro = 11.5 9.4-11. complet mbin 017 SECONDS 8 ed time 14:14 (PT) in platele t poor p Activated partial thromboplastin time (a (04-04-2017 14:14) Comment: IS PATIENT ON ANTICOAGULANTS? N Activat = 19.4 23.6-34 complet ed 017 SECONDS .0 ed partial 14:14 thrombo plastin time (a Influenza A and B virus antigen assay (04-04-2017 14:05) Influen NOT NOT complet za 017 DETECTE DETECTD ed virus B 14:05 D NOT DETECTE antigen D L detecti on Influen NOT NOT complet za A ag 017 DETECTE DETECTD ed QL 14:05 D NOT DETECTE D L Influenza virus A+B Ag [Presence] in Unspecified specimen (04-04-2017 14:05) Influen NOT NOT complet za 017 DETECTE DETECTD ed virus A 14:05 D Ag [Presen ce] in Unspeci fied specime n Influen NOT NOT complet za 017 DETECTE DETECTD ed virus B 14:05 D Ag [Presen ce] in Unspeci fied specime n Serum or plasma folate measurement (mass (03-14-2017 06:54) Serum = 4.0 >3.0 complet or 017 ng/mL ed plasma 06:54 folate measure ment (mass Comment: Comment: A serum folate concentration of [...] ed ser/eliud 06:54 s Comment: Performed at: [facility] Comment: [address], [place] [id number] Comment: Recycling Specialist: Tian Holt PhD, Phone: [phone] Serum or plasma ferritin measurement (ma (03-14-2017 06:54) Serum = 39 8-388 complet or 017 ng/mL ed plasma 06:54 ferriti n measure ment (ronaldo Basic metabolic panel (03-14-2017 06:54) Serum = 141 136-145 complet sodium 017 mmoL/L ed measure 06:54 ment Serum = 5.0 3.5-5.1 complet potassi 017 mmoL/L ed um 06:54 measure ment Serum = 91 74-106 complet or 017 mg/dL ed plasma 06:54 glucose measure ment (arlene Estimat = 36 59- complet ed 017 ML/MIN ed glomeru 06:54 lar filtrat ion rate (GF Comment: REFERENCE RANGE: >60 ML/MIN/1.73 SQUARE METERS Comment: If this patient is -Cymro, then multiply the Comment: result by 1.210. [...] blood 06:54 platele t mean volume karsten [place] % = 9.2 % 1.7-9.3 complet 017 [...] SQUARE METERS Comment: If this patient is -Cymro, then multiply the Comment: result by 1.210. [...] blood 12:34 platele t mean volume karsten [place] % = 8.3 % 1.7-9.3 complet 017 [...] Procedure DOS Code Location Performer Comment ECG 24213 [facility] ROUTINE 7 PHYSICIAN ECG S GROUP W/LEAST 12 LDS I&R ONLY SBSQ [address]2629 [place] [address] PHYSICIAN CARE/DAY S GROUP 15 MINUTES RADIOLOGI 72416 [facility] EXAM 7 MEDICAL CHEST 2 IMAGING VIEWS ASS FRONTAL&L ATERAL SBSQ 87145 [place] [address] PHYSICIAN CARE/DAY S GROUP 15 MINUTES INITIAL 93946 [place] [address] PHYSICIAN CARE/DAY S GROUP 70 MINUTES RADIOLOGI 51490 [facility] 7 MEDICAL EXAMINATI IMAGING ON CHEST ASS SINGLE VIEW FRONTAL CATH PLMT 87449 [facility] 7 PHYSICIAN HRT/ARTS/ S GROUP GRFTS WNJX & ANGIO IMG S&I PRQ 85273 [facility] TRLUML 7 PHYSICIAN CORONARY S GROUP STENT W/ANGIO ONE ART/BRNCH ECG 93164 [facility] ROUTINE 7 PHYSICIAN ECG S, PLLC W/LEAST 12 LDS I&R ONLY RADIOLOGI 83075 ELIZABETH Lamb 7 MEDICAL EXAMINATI IMAGING [place] [address] ELIZABETH JUAREZ HEAD/BRAI 7 MEDICAL N W/O IMAGING CONTRAST ASS MATERIAL RADIOLOGI 11098 ELIZABETH HERNANDEZ C 7 MEDICAL EXAMINATI IMAGING ON TIBIA ASS & FIBULA 2 VIEWS ADMINISTR G0008 A Adonis HUNTER ATION OF 7 [place] INFLUENZA PSC VIRUS VACCINE IIV 74163 A Adonis HUNTER VACCINE 7 [place] PRESERV PSC FREE INCREASED AG CONTENT IM DRESSING 04966 A Adonis HUNTER CHANGE 7 [place] UNDER PSC ANESTHESI A CUL BACT 24954 [facility] XCPT 7 [facility] URINE INC INC BLOOD/STO OL AEROBIC ISOL CUL BACT 99586 [facility] AEROBIC 7 [facility] ADDL INC INC METHS DEFINITIV E EA ISOL COLLECTIO 68572 [facility] N VENOUS 7 [facility] BLOOD INC INC VENIPUNCT URE BLOOD 90535 [facility] COUNT 7 [facility] COMPLETE INC INC AUTO&AUTO DIFRNTL WBC SUSCEPTIB 79594 [facility] LTY STDY 7 [facility] ANTIMICRB INC INC IAL MICRO/AGA R DILUTJ INJECTION J3420 A Adonis HUNTER VIT B-12 7 [place] PSC CYANOCOBA ALETA TO 1000 MCG BLOOD 13482 A Adonis HUNTER COUNT 7 [place] COMPLETE PSC AUTO&AUTO DIFRNTL WBC INJECTION J3301 A Adonis SIMMONS MD TRIAMCINO PSC LONE ACETONIDE NOS 10 MG COLLECTIO 84533 A Adonis HUNTER N VENOUS 7 [place] BLOOD PSC VENIPUNCT URE INJECTION J1030 A Adonis SIMMONS MD METHYLPRE PSC DNISOLONE ACETATE 40 MG THERAPEUT 70362 A Adonis HUNTER IC 7 [place] PROPHYLAC PSC TIC/DX INJECTION SUBQ/IM AMB A0427 [facility] 7 AMBULANCE AMBULANCE ALS SERVICE SERVICE EMERGENCY TRANSPORT LEVEL 1 SMPL RPR 41465 [facility] SCALP/NEC 7 [facility] K/AX/GWENDOLYN INC INC T/TRUNK 12.6-20.0 CM TDAP 02988 [facility] VACCINE 7 7 [facility] YRS/> IM INC INC IM ADM 25572 [facility] PRQ ID 7 [facility] SUBQ/IM INC INC NJXS 1 VACCINE GROUND A0425 [facility] 7 AMBULANCE AMBULANCE PER SERVICE SERVICE STATUTE MILE O2 CONC 1 E1390 [facility] DEL PORT 7 [place] MAN[place] 85%/>02 INC- INC- CONC AT [facility] FLW RATE TRAVEL [address] MED 7 PHYSICIAN PHYSICIAN NEC LAB S LA S LA SPEC; PRORAT ACTL MILE BASIC 20712 [facility] COM[facility]ED METABOLIC 7 PHYSICIAN PHYSICIAN PANEL S LA S LA CALCIUM TOTAL BLOOD 26563 [facility] COUNT 7 PHYSICIAN PHYSICIAN COMPLETE S LA S LA AUTO&AUTO DIFRNTL WBC CYANOCOBA 38398 COMBINED COMBINED ALETA 7 PHYSICIAN PHYSICIAN VITAMIN S LA S LA B-12 COLLECTIO 63303 COMBINED COMBINED N VENOUS 7 PHYSICIAN PHYSICIAN BLOOD S LA S LA VENIPUNCT URE O2 CONC 1 E1390 [facility] [place] 7 MANOR MANOR 85%/>02 INC- INC- CONC AT [facility] FLW RATE SBSQ 35702 [facility] 7 PHYSICIAN CARE/DAY S GROUP 15 MINUTES AMBULANCE A0428 [facility] 7 AMBULANCE AMBULANCE BLS SERVICE SERVICE NONEMERGE NCY TRANSPORT GROUND A0425 [facility] 7 AMBULANCE AMBULANCE PER SERVICE SERVICE STATUTE MILE GROUND A0425 [facility] 7 AMBULANCE AMBULANCE PER SERVICE SERVICE STATUTE MILE ECG 47648 [facility] WATTS JR ROUTINE 7 [facility] W/LEAST P 12 LDS I&R ONLY AMB A0427 [facility] SERVICE 7 AMBULANCE AMBULANCE ALS SERVICE SERV[place] [address] SHRUTIUCKY JUAREZ HEAD/BRAI 7 MEDICAL N W/O IMAGING CONTRAST ASS MATERIAL RADIOLOGI 42466 [facility] C 7 MEDICAL EXAMINATI IMAGING ON [place] [address] [facility] THYROID 7 [facility]I STIMULATI HOLD[place] [address] [facility] THYROID 7 [facility] CHIDI STIMULATI HOLDINGS HOLDINGS NG HORMONE TSH BASIC 18086 [facility] METABOLIC 7 [facility]I PANEL HOLDINGS HOLDINGS CALCIUM TOTAL CYANOCOBA 04365 [facility]Y ALETA 7 [facility] CHIDI VITAMIN HOLDINGS HOLDINGS B-12 [place] [address] LAB WILL[facility] LAB WILLY FREE 7 [facility] THYROXINE HOLDINGS HOLDINGS WALKER E0143 HUNTER HUNTER FOLDING 7 HOME HOME WHEELED MEDICAL MEDICAL ADJUSTABL EQUIPME EQUIPME E/FIXED HEIGHT SEAT E0156 HUNTER HARRISON ATTACHMEN 7 HOME HOME T WALKER MEDICAL MEDICAL EQUIPME EQUIPME BASIC 64710 [facility] METABOLIC 7 [facility] PANEL [place] [address] [facility] THYROID 7 CHIDI CHIDI STIMULATI HOLD[place] [address] LAB [facility] LAB WILLY FREE 7 [facility] THYROXINE HOLDINGS HOLDINGS BASIC 30022 LAB [facility] LAB WILLY METABOLIC 6 [facility] PANEL [place] [address] LAB [facility] LAB WILLY THYROID 6 CHIDI CHIDI STIMULATI HOLDINGS [place] [address] LAB [facility] LAB WILLY THYROID 6 CHIDI CHIDI STIMULATI HOLDINGS HOLDINGS NG HORMONE TSH BASIC 51573 LAB [facility] WILLY METABOLIC 6 [facility] CHIDI PANEL [place] [address] LAB [facility] LAB WILLY FREE 6 CHIDI CHIDI THYROXINE HOLDINGS HOLDINGS CYANOCOBA 61506 LAB [facility] LAB WILLY ALETA 6 CHIDI CHIDI VITAMIN HOLDINGS HOLDINGS B-[address] [place] [address] LAB [facility] LAB WILLY FREE 6 [facility] THYROXINE HOLDINGS HOLDINGS BASIC 31501 LAB [facility] WILLY METABOLIC 6 CH[facility]I CHIDI PANEL [place] [address] LAB [facility] LAB WILLY THYROID 6 CHIDI CHIDI STIMULATI HOLDINGS HOLDINGS NG HORMONE TSH DUPLEX 30947 [facility] MARY SCAN 6 MEDICAL JONELLE EXTRACRAN IMAGING IAL ART ASS COMPL BI STUDY COMPREHEN 80017 [facility] SIVE 6 DIAGNOSTI DIAGNOSTI METABOLIC CS [place] [address] [facility] QUEST FREE 6 DIAGNOSTI DIAGNOSTI THYROXINE [place] [address] [facility] QUEST FERRITIN 6 DIAGNOSTI DIAGNOSTI CS CS INCORPORA INCORPORA T T BLOOD 23476 [facility] COUNT 6 DIAGNOSTI DIAGNOSTI COMPLETE CS CS AUTO&AUTO INCORPORA INCORPORA DIFRNTL T T WBC INJECTION J3420 A Adonis HUNTER VIT B-12 6 TROY PEDRAZA PSC CYANOCOBA ALETA TO 1000 MCG INJ J0702 A Adonis HUNTER BETAMETHA 6 TROY [place]ED[facility] SONE PSC ACETATE & PHOSPHATE 3 MG INJECTION J1030 A Adonis HUNTER 6 TROY [facility] METHYLPRE PSC DNISOLONE ACETATE 40 MG THERAPEUT 03377 A Adonis HUNTRE IC 6 TROY PEDRAZA PROPHYLAC PSC TIC/DX INJECTION SUBQ/[place] [address] [facility]ST THYROID 6 DIAGNOSTI DIAGNOSTI STIMULATI CS CS NG INCORPORA INCORPORA HORMONE T T TSH BASIC 33058 [facility] METABOLIC 6 CHIDI CHIDI PANEL HOLDINGS HOLDINGS CALCIUM TOTAL CYANOCOBA 71187 LAB [facility] LAB WILLY ALETA 6 CHIDI CHIDI VITAMIN HOLDINGS HOLDINGS B-[address] [place] [address] [facility] LAB WILL[facility] FREE 6 CHIDI CHIDI [place] [address] [facility] THYROID 6 [facility] CHIDI STIMULATI HOLDINGS HOLDINGS NG HORMONE TSH Encounters Encounter Start End Date Code Location Performer Type Date OFFICE 08144 [facility] NATHAN OUTPATIEN 7 7 PHYSICIAN T VISIT S GROUP 15 MINUTES OFFICE 55042 Yakov TONG OUTPATIEN 7 7 [facility] [place] T VISIT PSC 15 MINUTES EMERGENCY 17422 AISHA ANDERSON DEPT 7 7 PHYSICIAN VISIT , [facility] HIGH SEVERITY& THREAT FUNCJ OFFICE 33589 A Adonis TAY 7 7 [facility] [place] T VISIT PSC 15 MINUTES HOSPITAL [facility] - 7 7 [facility] OUTPATIEN INC T OFFICE 61033 A Adonis TAY 7 7 [facility] [place] T VISIT PSC 15 MINUTES HOSPITAL [facility] - 7 7 [facility] OUTPATIEN INC T EMERGENCY 23835 AISHA ROWE 7 7 PHYSICIAN [facility] T VISIT HIGH/URGE NT SEVERITY EMERGENCY 72827 [facility] 7 7 [facility] T VISIT LOW/MODER SEVERITY OFFICE 53824 A Adonis TAY 7 7 [facility] [place] T VISIT PSC 15 MINUTES EMERGENCY 80262 [facility] 7 7 [facility] T VISIT HIGH/URGE NT SEVERITY HOSPITAL [facility] - 7 7 [facility] OUTPATIEN [facility] T EMERGENCY 03856 AISHA ANDRE 7 7 PHYSICIAN [facility] T VISIT MODERATE SEVERITY [facility] INPATIENT 7 7 MANOR [facility]PATIENT 7 7 [facility] GARY - 6 6 [facility] OUTPATIEN [facility] T OFFICE 53496 A Adonis HUNTER OUTPATIOWEN 6 6 TROY PEDRAZA T VISIT PSC 15 MINUTES SPECIAL [facility] FACILITY 6 6 MANOR - OTHER INC- SPECIAL [facility] FACILITY 5 5 MANOR - OTHER INC- OFFICE 29376 [facility] OUT[facility] 5 5 N T NEW 45 NEUROLOGY MINUTES
--- OUTSIDE RECORDS SUMMARY | 2017-04-04 15:54 | External Medical Summary Rpt | CCD ---
Author Author , VIRGINIA Organization V[place]IA Address Unknown Phone [email or web address] Care Team Providers Care Hydraulic Technician Name Role Phone A Adonis SIMMONS MD [...] Unavailable ELSA PEDRAZA, ELSA Unavailable Unavailable [facility], Unavailable Unavailable [facility] Unavailable Unavailable INC, [facility] Unavailable Unavailable HOSPITAL P, [facility], Unavailable Unavailable [facility] ANDERSON, ANDERSON Unavailable Unavailable [facility] KILPELA, KILPELA Unavailable Unavailable [facility] Un[facility] Unavailable [facility], [facility] Unavailable Unavailable [facility], [facility] STEFANIE WATTS JR, JR Unavailable Unavailable [facility], Unavailable Unavailable PLL[facility], [facility], [facility] Unavailable Unavailable INCORPORAT, [facility] [...] Status I10 ESSENTIAL 03-01-2017 [facility] PRIMARY PHYSICIANS HYPERTENSIO GROUP N I2510 ASHD EEK 03-01-2017 [facility] 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 OLD 03-01-2017 [facility] MYOCARDIAL PHYSICIANS INFARCTION GROUP I255 ISCHEMIC 03-01-2017 [facility] CARDIOMYOPA PHYSICIANS THY GROUP I5021 ACUTE 03-01-2017 [facility] SYSTOLIC PHYSICIANS CONGESTIVE GROUP HEART FAILURE I509 HEART 03-01-2017 [facility] FAILURE PHYSICIANS UNSPECIFIED GROUP Z955 PRESENCE OF 03-01-2017 [facility] 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 I214 NON-ST 02-17-2017 [facility] ELEVATION PHYSICIANS MYOCARDIAL GROUP INFARCTION I5020 UNSPECIFIED 02-17-2017 [facility] SYSTOLIC PHYSICIANS CONGESTIVE GROUP HEART FAILURE J90 PLEURAL 02-17-2017 [facility] NOT [facility]AGING ASS ELSEWHERE CLASSIFIED R0602 SHORTNESS 02-17-2017 [facility] R918 OTHER 02-17-2017 [facility] NONSPECIFIC MEDICAL ABNORMAL IMAGING ASS FINDING OF LUNG FIELD E785 HYPERLIPIDE 02-15-2017 [facility] MACIEL PHYSICIANS UNSPECIFIED GROUP D41510 ASHD EEK 02-15-2017 [facility] COR ART PHYSICIANS W/UNSTABLE GROUP ANGINA PECTORIS I6529 OCCLUSION & 02-15-2017 [facility] STENOSIS PHYSICIANS UNSPECIFIED GROUP CAROTID ARTERY N183 CHRONIC 02-15-2017 [facility] KIDNEY PHYSICIANS DISEASE GROUP STAGE 3 MODERATE R05 COUGH 02-15-2017 [facility] 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 [facility] PHYSICIANS AORTOCORONA GROUP RY BYPASS GRAFT R110 NAUSEA 02-14-2017 [facility] R410 DISORIENTAT 02-14-2017 [facility] ION PHYSICIANS, UNSPECIFIED PLLC R4182 ALTERED 02-14-2017 [facility] M[facility]AL [facility]ICAL STATUS [facility]ING ASS UNSPECIFIED R5381 OTHER 02-14-2017 [facility] R7989 OTHER SPEC 02-14-2017 [facility] ABNORMAL PHYSICIANS, FINDINGS PLLC BLOOD CHEMISTRY M7989 OTHER 02-04-2017 [facility] SPECIFIED MEDICAL SOFT TISSUE IMAGING ASS DISORDERS [id number] LACERATION 02-04-2017 A Ad[facility] SIMMONS W/O FOREIGN PSC BODY LT LOW LEG SBSQT ENC R6909OJ UNS INJURY 02-04-2017 [facility] RT LOWER MEDICAL LEG INITIAL IMAGING ASS ENCOUNTER [id number] UNS INJURY 02-04-2017 [facility] LEG INC SUBSEQUENT ENCOUNTER S51UWHN FALL FROM 02-04-2017 A Adonis VELASQUEZ MD PSC SUBSEQUENT ENCOUNTER Z23 ENCOUNTER 02-04-2017 A Adonis CONWAY MD PSC IMMUNIZATIO N D649 ANEMIA 01-23-2017 [facility] UNSPECIFIED PHYSICIANS, PLLC [id number] LACERATION 01-23-2017 [facility] W/O FOREIGN PHYSICIANS, BODY LT PLLC LOW LEG INIT ENC J73018 OTHER LONG 01-23-2017 [facility] CURRENT INC DRUG THERAPY E538 DEFICIENCY 01-20-2017 A Adonis ANTONIO MD PSC SPECIFIED B GROUP VITAMINS M1990 UNSPECIFIED 01-20-2017 A Adonis SIMMONS MD PSC OSTEOARTHRI TIS UNSPECIFIED SITE P8128GS OTHER SPEC 01-19-2017 [facility]ANCE [...] G20 PARKINSONS 12-23-2016 [facility] SERVICE C10755 ASHD EEK 12-21-2016 [facility] W[facility] P ANGINA PECTORIS D62582 ATHEROSCLER 12-21-2016 [facility] P ARTERY CABG W/[facility] AP R079 CHEST PAIN 12-21-2016 [facility]PEC[facility] R531 WEAKNESS 12-21-2016 [facility] P R5383 OTHER 12-21-2016 [facility] E039 HYPOTHYROID 12-08-2016 [facility] UNSPECIFIED HOLDINGS E782 MIXED 11-17-2016 [facility] HYPERLIPIDE [facility] MACIEL HOLDINGS Z9181 HISTORY OF 08-18-2016 [facility] M542 CERVICALGIA 11-26-2015 [facility] M549 DORSALGIA 11-26-2015 [facility] UNSPECIFIED [facility]INGS R0989 OTH SPEC SX 10-15-2015 [facility]ING ASS CIRC & RESP SYS E611 IRON 10-07-2015 [facility] M545 LOW BACK 10-07-2015 A Adonis SIMMONS PAIN PSC R57536 PAIN IN 08-06-2015 [facility] RIGHT HIP [facility] R296 REPEATED 06-06-2015 [facility] [place] [facility]- G250 ESSENTIAL 05-13-2015 [facility] Allergies, Adverse Reactions, Alerts Clinical [...] -2 -2 0. D 66 SS ti TN 63 0- 8- 00 CA 58 ON ve N 79 20 20 0 RE 02 D3 [address] 1 PH EP 2, AR HE 00 MA N 0 CY A UN IT LL C SO FT GE L 00 07 07 0 18 18 ME 14 BE Ac TA 90 -2 -2 0. D 67 SS ti TN 44 7- 7- 00 CA 72 ON ve N 21 20 20 0 RE 90 B- [address] 12 3 PH EP AR HE 1, MA N 00 CY A 0 MC LL G C TA BL ET 00 07 07 0 10 10 ME 14 BE Ac TA 53 -2 -2 0. D 63 SS ti TN 63 0- 0- 00 CA 48 ON ve N 79 20 20 0 RE 12 D3 [address] 1 PH EP 2, AR HE 00 MA N 0 CY A UN IT LL C SO FT GE L 00 12 01 0 60 6 ME 12 BE Ac TA 53 -2 -2 .0 D 05 SS ti TN 63 9- 5- 00 CA 55 ON [...] -2 -2 0. D 97 SS ti TN 63 9- 9- 00 CA 38 ON [...] SQUARE METERS Comment: If this patient is -Guyanese, then multiply the Comment: result by 1.210. [...] 017 K/mm3 ed monocyt 14:19 e count Johnson % 2 = 5.4 % 1.7-9.3 complet [...] ed ser/eliud 06:54 s Comment: Performed at: [facility] Comment: [address] [place], [place] [id number] Comment: Sign Manufacturer: Tian Holt PhD, Phone: [phone] Serum or plasma ferritin measurement (ma (03-14-2017 [...] SQUARE METERS Comment: If this patient is -Guyanese, then multiply the Comment: result by 1.210. [...] blood 06:54 platele t mean volume karsten Johnson % = 9.2 % 1.7-9.3 complet 017 [...] 6.1 6.4-8.2 complet total 017 gm/dL ed ser/elidu 12:34 s ALT = 8 U/L 12-78 [...] SQUARE METERS Comment: If this patient is -Guyanese, then multiply the Comment: result by 1.210. [...] blood 12:34 platele t mean volume karsten Johnson % = 8.3 % 1.7-9.3 complet 017 [...] Procedure DOS Code Location Performer Comment ECG 25447 [facility] ROUTINE 7 PHYSICIAN ECG S GROUP W/LEAST 12 LDS I&R ONLY SBSQ 78283 [place] [address] PHYSICIAN CARE/DAY S GROUP 15 MINUTES RADIOLOGI 08548 [facility] EXAM 7 MEDICAL CHEST 2 IMAGING VIEWS ASS FRONTAL&L ATERAL SBSQ 80367 [place] [address] PHYSICIAN CARE/DAY S GROUP 15 MINUTES INITIAL 27855 [place] [address] PHYSICIAN CARE/DAY S GROUP 70 MINUTES RADIOLOGI 66165 [facility] 7 MEDICAL EXAMINATI IMAGING ON CHEST ASS SINGLE [place]IEW FRONTAL CATH PLMT 13508 [facility] 7 PHYSICIAN HRT/ARTS/ S GROUP GRFTS WNJX & ANGIO IMG S&I PRQ 45042 [facility] TRLUML 7 PHYSICIAN CORONARY S GROUP STENT W/ANGIO ONE ART/BRNCH ECG 88280 [facility] ROUTINE 7 PHYSICIAN ECG S, PLLC W/LEAST 12 LDS I&R ONLY RADIOLOGI 31948 ELIZABETH Lamb 7 MEDICAL EXAMINATI IMAGING [place] [address] ELIZABETH JUAREZ HEAD/BRAI 7 MEDICAL N W/O IMAGING CONTRAST ASS MATERIAL RADIOLOGI 68988 ELIZABETH HERNANDEZ C 7 MEDICAL EXAMINATI IMAGING ON TIBIA ASS & FIBULA 2 VIEWS ADMINISTR G0008 A Adonis HUNTER ATION OF 7 [place]FL[place] V[place] 33454 A Adonis HUNTER VACCINE 7 [place] PRESERV PSC FREE INCREASED AG CONTENT IM DRESSING 94017 A Adonis HUNTER CHANGE 7 [place] UNDER PSC ANESTHESI A CUL BACT 12281 [facility] XCPT 7 [facility] URINE INC INC BLOOD/STO OL AEROBIC ISOL CUL BACT 47456 [facility] AEROBIC 7 [facility] ADDL INC INC METHS DEFINITIV E EA ISOL COLLECTIO 18121 [facility] N VENOUS 7 [facility] BLOOD INC INC VENIPUNCT URE BLOOD 90553 [facility] COUNT 7 [facility] COMPLETE INC INC AUTO&AUTO DIFRNTL WBC SUSCEPTIB 75570 [facility] LTY STDY 7 [facility] ANTIMICRB INC INC IAL MICRO/AGA R DILUTJ INJECTION J3420 A Adonis HUNTER VIT B-12 7 [place] PSC CYANOCOBA ALETA TO 1000 MCG BLOOD 61060 A Adonis HUNTER COUNT 7 [place] COMPLETE PSC AUTO&AUTO DIFRNTL WBC INJECTION J3301 A Adonis SIMMONS MD TRIAMCINO PSC LONE ACETONIDE NOS 10 MG COLLECTIO 97869 A Adonis HUNTER N VENOUS 7 [place] BLOOD PSC VENIPUNCT URE INJECTION J1030 A Adonis SIMMONS MD METHYLPRE PSC DNISOLONE ACETATE 40 MG THERAPEUT 98236 A Adonis HUNTER IC 7 [place] PROPHYLAC PSC TIC/DX INJECTION SUBQ/IM AMB A0427 [facility] 7 AMBULANCE AMBULANCE ALS SERVICE SERVICE EMERGENCY TRANSPORT LEVEL 1 SMPL RPR 32381 [facility] SCALP/NEC 7 [facility] K/AX/GWENDOLYN INC INC T/TRUNK 12.6-20.0 CM TDAP 14542 [facility] VACCINE 7 7 [facility] YRS/> IM INC INC IM ADM 36081 [facility] PRQ ID 7 [facility] SUBQ/IM INC INC NJXS 1 VACCINE GROUND A0425 [facility] 7 AMBULANCE AMBULANCE PER SERVICE SERVICE STATUTE MILE O2 CONC 1 E1390 [facility] DEANG[facility] DEL PORT 7 [place] 85%/>02 INC- INC- CONC AT [facility] FLW RATE TRAVEL [address] MED 7 PHYSICIAN PHYSICIAN NEC LAB S LA S LA SPEC; PRORAT ACTL MILE BASIC 75212 COMBIN[facility] COMBINED METABOLIC 7 PHYSICIAN PHYSICIAN PANEL S LA S LA CALCIUM TOTAL BLOOD 63346 [facility]ED COUNT 7 PHYSICIAN PHYSICIAN COMPLETE S LA S LA AUTO&AUTO DIFRNTL WBC CYANOCOBA 76905 COMBINED COMBINED ALETA 7 PHYSICIAN PHYSICIAN VITAMIN S LA S LA B-12 COLLECTIO 01259 COMBINED COMBINED N VENOUS 7 PHYSICIAN PHYSICIAN BLOOD S LA S LA VENIPUNCT URE O2 CONC 1 E1390 [facility] DEANGELO DEL [place] 7 [place] 85%/>02 INC- INC- CONC AT [facility] FLW RATE SBSQ 31829 [facility] 7 PHYSICIAN CARE/DAY S GROUP 15 MINUTES AMBULANCE A0428 [facility] 7 AMBULANCE AMBULANCE BLS SERVICE SERVICE NONEMERGE NCY TRANSPORT GROUND A0425 [facility] 7 AMBULANCE AMBULANCE PER SERVICE SERVICE STATUTE MILE GROUND A0425 [facility] 7 AMBULANCE AMBULANCE PER SERVICE SERVICE STATUTE MILE ECG 83836 GARY WATTS JR ROUTINE 7 [facility] W/LEAST P 12 LDS I&R ONLY AMB A0427 [facility] SERVICE 7 AMBULANCE AMBULANCE ALS SERVICE SERVICE [place] [address] SHRUTIUCKY JUAREZ HEAD/BRAI 7 MEDICAL N W/O IMAGING CONTRAST ASS MATERIAL RADIOLOGI 04709 [facility] C 7 MEDICAL EXAMINATI IMAGING ON [place] [address] LAB [facility] WILLY THYROID 7 [facility] STIMULATI HOLDINGS [place] [address] LAB [facility] WILLY THYROID 7 [facility] CHIDI STIMULATI HOLDINGS HOLDINGS NG HORMONE TSH BASIC 42911 [facility] METABOLIC 7 [facility] PANEL HOLDINGS HOLDINGS CALCIUM TOTAL CYANOCOBA 06060 LAB [facility] LAB WILLY ALETA 7 [facility] CHIDI VITAMIN HOLDINGS HOLDINGS B-12 [place] [address] LAB WILLY LAB WILLY FREE [address] [facility] THYROXINE HOLDINGS HOLDINGS WALKER E0143 [facility] 7 HOME HOME WHEELED MEDICAL MEDICAL ADJUSTABL EQUIPME EQUIPME E/FIXED HEIGHT SEAT E0156 [facility] ATTACHMEN 7 HOME HOME T WALKER MEDICAL MEDICAL EQUIPME EQUIPME BASIC 27138 [facility] METABOLIC [address] [facility] PANEL [place] [address] LAB IWLLY LAB [facility] THYROID 7 [facility]IDI CHIDI STIMULATI HOLDINGS [place] [address] LAB WILL[facility] LAB WILL[facility] FREE [address] [facility] THYROXINE HOLDINGS HOLDINGS BASIC 61609 LAB [facility] LAB WILLY METABOLIC [address] [facility] PANEL [place] [address] LAB [facility] LAB WILLY THYROID 6 CHIDI CHIDI STIMULATI HOLDINGS [place] [address] LAB [facility] LAB WILLY THYROID 6 CHIDI CHIDI STIMULATI HOLDINGS HOLDINGS NG HORMONE TSH BASIC 96962 LAB [facility] LAB WILLY METABOLIC 6 CH[facility] PANEL [place] [address] LAB [facility] LAB WILLY FREE 6 CH[facility] CHIDI THYROXINE HOLDINGS HOLDINGS CYANOCOBA 22706 LAB [facility] LAB WILLY ALETA 6 CHIDI [facility]I VITAMIN HOLDINGS [place] B-[address] [place] [address] LAB [facility] FREE [address] [facility] THYROXINE HOLDINGS HOLDINGS BASIC 50501 LAB [facility] WILLY METABOLIC 6 CHID[facility] PANEL [place] [address] LAB [facility] LAB WILLY THYROID 6 CHIDI CHIDI STIMULATI HOLDINGS HOLDINGS NG HORMONE TSH DUPLEX 46449 [facility] MARY SCAN 6 MEDICAL JONELLE EXTRACRAN IMAGING IAL ART ASS COMPL BI STUDY COMPREHEN 90655 [facility] SIVE 6 DIAGNOSTI DIAGNOSTI METABOLIC CS CS [place] [address] [facility] FREE 6 DIAGNOSTI DIAGNOSTI THYROXINE [place] [address] [facility] FERRITIN 6 DIAGNOSTI DIAGNOSTI CS CS INCORPORA INCORPORA T T BLOOD 21631 [facility] COUNT 6 DIAGNOSTI DIAGNOSTI COMPLETE CS CS AUTO&AUTO INCORPORA INCORPORA DIFRNTL T T WBC INJECTION J3420 A Adonis HUNTER VIT B-12 6 TROY PEDRAZA PSC CYANOCOBA ALETA TO 1000 MCG INJ J0702 A Adonis HUNTER BETAMETHA 6 TROY PEDRAZA SONE PSC ACETATE & PHOSPHATE 3 MG INJECTION J1030 A Adonis HUNTER 6 TROY PDERAZA METHYLPRE PSC DNISOLONE ACETATE 40 MG THERAPEUT 25156 A Adonis HUNTER IC 6 TROY PEDRAZA PROPHYLAC PSC TIC/DX INJECTION SUBQ/[place] [address] [facility] THYROID 6 DIAGNOSTI DIAGNOSTI STIMULATI CS CS NG INCORPORA INCORPORA HORMONE T T TSH BASIC 82236 [facility] METABOLIC 6 CH[facility] CH[facility]I PANEL HOLDINGS HOLDINGS CALCIUM TOTAL CYANOCOBA 75367 [facility]Y ALETA 6 CHID[facility] CHIDI VITAMIN HOLDINGS HOLDINGS B-[address] [place] [address] [facility] FREE 6 [facility] [place]RO[place] [address] LAB [facility] THYROID 6 [facility] STIMULATI HOLDINGS HOLDINGS NG HORMONE TSH Encounters Encounter Start End Date Code Location Performer Type Date OFFICE 96539 [facility] NATHAN OUTPATIEN 7 7 PHYSICIAN T VISIT S GROUP 15 MINUTES OFFICE 74408 Yakov TONG OUTPATIEN 7 7 [facility] [place] T VISIT PSC 15 MINUTES EMERGENCY 81804 [facility] ANDERSON DEPT 7 7 PHYSICIAN VISIT , [facility] HIGH SEVERITY& THREAT FUNCJ OFFICE 22231 A Adonis TAY 7 7 [facility] [place] T VISIT PSC 15 MINUTES HOSPITAL GARY - 7 7 [facility] OUTPATIEN INC T OFFICE 82040 A Adonis TAY 7 7 [facility] [place] T VISIT PSC 15 MINUTES HOSPITAL [facility]ARY - 7 7 [facility] OUTPATIEN INC T EMERGENCY 13050 AISHA ROWE 7 7 PHYSICIAN [facility] T VISIT HIGH/URGE NT SEVERITY EMERGENCY 90031 [facility] 7 7 [facility] T VISIT LOW/MODER SEVERITY OFFICE 76925 A Adonis TAY 7 7 [facility] [place] T VISIT PSC 15 MINUTES EMERGENCY 84316 [facility] 7 7 [facility] T VISIT HIGH/URGE NT SEVERITY HOSPITAL GARY - 7 7 [facility] OUTPATIEN [facility] T EMERGENCY 53950 AISHA ANDRE 7 7 PHYSICIAN [facility] T VISIT MODERATE SEVERITY - [facility] INPATIENT 7 7 MANOR [facility] INPATIENT [address] [facility] GARY - 6 6 [facility] OUTPATIEN [facility] T OFFICE 06823 A Adonis HUNTER OUTPATIOWEN 6 6 TROY PEDRAZA T VISIT PSC 15 MINUTES [facility]AC[facility] 6 6 MANOR - OTHER INC- [facility] FACILITY 5 5 MANOR - OTHER INC- OFFICE 58847 [facility] OUTPATI[facility] 5 5 N T NEW 45 NEUROLOGY MINUTES
--- OUTSIDE RECORDS SUMMARY | 2017-04-04 15:57 | External Medical Summary Rpt | CCD ---
Author Author , VIRGINIA Organization VIRGINIA Address Unknown Phone [email or web address] Care Team Providers Care Industrial Engineering Intern Name Role Phone A Adonis SIMMONS MD [...] Unavailable Unavailable ELSA CABAN Unavailable Unavailable [facility], Unavailable Unavailable [facility] Unavailable Unavailable INC, [facility] Unavailable Unavailable [facility]OSPITAL P, [facility], Unavailable Unavailable [facility] ANDERSON, ANDERSON Unavailable Unavailable [facility], [facility] KILPELA, KILPELA Unavailable Unavailable [...] Diagnosis DOS Provider Status I10 ESSENTIAL 03-01-2017 [facility] PRIMARY PHYSICIANS HYPERTENSIO GROUP N 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-2017 [facility] 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 OLD 03-01-2017 [facility] MYOCARDIAL PHYSICIANS INFARCTION GROUP I255 ISCHEMIC 03-01-2017 [facility] CARDIOMYOPA PHYSICIANS THY GROUP I5021 ACUTE 03-01-2017 [facility] SYSTOLIC PHYSICIANS CONGESTIVE GROUP HEART FAILURE I509 HEART 03-01-2017 [facility] FAILURE PHYSICIANS UNSPECIFIED GROUP Z955 PRESENCE OF 03-01-2017 [facility] 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 I214 NON-ST 02-17-2017 [facility] ELEVATION PHYSICIANS MYOCARDIAL GROUP INFARCTION I5020 UNSPECIFIED 02-17-2017 [facility] SYSTOLIC PHYSICIANS CONGESTIVE GROUP HEART FAILURE J90 PLEURAL 02-17-2017 [facility] ELSEWHERE CLASSIFIED R0602 SHORTNESS 02-17-2017 [facility] OF BREATH [facility]ICAL IM[facility]ING ASS R918 OTHER 02-17-2017 [facility] NONSPECIFIC MEDICAL ABNORMAL IMAGING ASS FINDING OF LUNG FIELD E785 HYPERLIPIDE 02-15-2017 [facility] MACIEL PHYSICIANS UNSPECIFIED GROUP [id number] ASHD MINTO 02-15-2017 [facility] COR ART PHYSICIANS W/UNSTABLE GROUP ANGINA PECTORIS I6529 OCCLUSION & 02-15-2017 [facility] STENOSIS PHYSICIANS UNSPECIFIED GROUP CAROTID ARTERY N183 CHRONIC 02-15-2017 [facility] KIDNEY PHYSICIANS DISEASE GROUP STAGE 3 MODERATE R05 COUGH 02-15-2017 [facility] 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 [facility] PHYSICIANS AORTOCORONA GROUP RY BYPASS GRAFT R110 NAUSEA 02-14-2017 [facility] R410 DISORIENTAT 02-14-2017 [facility] ION PHYSICIANS, UNSPECIFIED PLLC R4182 ALTERED 02-14-2017 [facility]AL [facility]US [facility] UNSPECIFIED R5381 OTHER 02-14-2017 [facility] R7989 OTHER SPEC 02-14-2017 [facility] ABNORMAL PHYSICIANS, FINDINGS PLLC BLOOD CHEMISTRY M7989 OTHER 02-04-2017 [facility] SPECIFIED MEDICAL SOFT TISSUE IMAGING ASS DISORDERS [id number] LACERATION 02-04-2017 A Adonis SIMMONS W/O FOREIGN PSC BODY LT LOW LEG SBSQT ENC X2205SD UNS INJURY 02-04-2017 [facility] RT LOWER MEDICAL LEG INITIAL IMAGING ASS ENCOUNTER I2906AA UNS INJURY 02-04-2017 [facility] LEG INC SUBSEQUENT ENCOUNTER R05HRWV FALL FROM 02-04-2017 A Adonis VELASQUEZ MD PSC SUBSEQUENT ENCOUNTER Z23 ENCOUNTER 02-04-2017 A Adonis CONWAY MD PSC IMMUNIZATIO N D649 ANEMIA 01-23-2017 [facility] UNSPECIFIED PHYSICIANS, PLLC [id number] LACERATION 01-23-2017 [facility] W/O FOREIGN PHYSICIANS, BODY LT PLLC LOW LEG INIT ENC Z21014 OTHER LONG 01-23-2017 [facility]RENT [facility] DRUG THERAPY E538 DEFICIENCY 01-20-2017 A Adonis SIMMONS OF [place] [facility] PSC SPECIFIED B GROUP VITAMINS M1990 UNSPECIFIED 01-20-2017 A Adonis SIMMONS MD PSC OSTEOARTHRI TIS UNSPECIFIED SITE E0988XL OTHER SPEC 01-19-2017 [facility]ANCE [...] G20 PARKINSONS 12-23-2016 [facility] SERVICE Y03923 ASHD MINTO 12-21-2016 [facility] P ANGINA PECTORIS Q21810 ATHEROSCLER 12-21-2016 [facility] ARTERY CABG W/[facility] AP R079 CHEST PAIN 12-21-2016 [facility]NSPECIFIED [facility] ASS R531 WEAKNESS 12-21-2016 [facility] P R5383 OTHER 12-21-2016 [facility] E039 HYPOTHYROID 12-08-2016 [facility] ISM [facility] UNSPECIFIED HOLDINGS E782 MIXED 11-17-2016 [facility] HYPERLIPIDE [facility]I MACIEL HOLDINGS Z9181 HISTORY OF 08-18-2016 [facility] M542 CERVICALGIA 11-26-2015 [facility] CHIID HOLDINGS M549 DORSALGIA 11-26-2015 [facility] UNSPECIFIED [facility]I HOLDINGS R0989 OTH SPEC SX 10-15-2015 [place] [facility] CIRC & RESP SYS E611 IRON 10-07-2015 [facility] M545 LOW BACK 10-07-2015 A Adonis SIMMONS PAIN PSC W17103 PAIN IN 08-06-2015 [facility] RIGHT HIP [facility] HOLDINGS R296 REPEATED 06-06-2015 [facility] [place] [facility]- G250 ESSENTIAL 05-13-2015 [facility] Medications Na ND Rx Da [...] 9- 8- .0 CA 14 ON ve WV 04 20 20 00 RE 37 OT [address] EC 4 PH EP T AR HE CR MA N EA CY A M LL C BA 11 12 12 0 14 15 ME 11 BE Ac ZA 70 -2 -2 20 D 97 SS ti 10 9- 9- .0 CA 38 ON ve WV 04 20 20 00 RE 56 OT [...] Procedure DOS Code Location Performer Comment ECG 38946 [facility] ROUTINE 7 PHYSICIAN ECG S GROUP W/LEAST 12 LDS I&R ONLY RADIOLOGI 23036 [facility] EXAM 7 MEDICAL CHEST 2 IMAGING VIEWS ASS FRONTAL&L ATERAL SBSQ 98246 [place] [address] PHYSICIAN CARE/DAY S GROUP 15 MINUTES SBSQ 25076 [place] [address] PHYSICIAN CARE/DAY S GROUP 15 MINUTES PRQ 25554 [facility] TRLUML 7 PHYSICIAN CORONARY S GROUP STENT W/ANGIO ONE ART/BRNCH INITIAL 28748 [place] [address] PHYSICIAN CARE/DAY S GROUP 70 MINUTES RADIOLOGI 23045 [facility] JUARE[facility] C 7 MEDICAL EXAMINATI IMAGING ON CHEST ASS SINGLE VIEW FRONTAL CATH PLMT 90597 [facility] L 7 PHYSICIAN HRT/ARTS/ S GROUP GRFTS WNJX & ANGIO IMG S&I ECG 59535 [facility] ANDERSON ROUTINE 7 PHYSICIAN ECG S, PLLC W/LEAST 12 LDS I&R ONLY RADIOLOGI 32146 [facility] MARY C 7 MEDICAL EXAMINATI IMAGING [place] [address] [facility] JUARE[facility] HEAD/BRAI 7 MEDICAL N W/O IMAGING CONTRAST ASS MATERIAL IIV 24770 A C ELSA VACCINE 7 [facility] [place] PRESERV PSC FREE INCREASED AG CONTENT IM ADMINISTR G0008 A Adonis HUNTER ATION OF 7 [facility] INFLUENZA PSC VIRUS VACCINE RADIOLOGI 18565 [facility] C 7 MEDICAL EXAMINATI IMAGING ON TIBIA ASS & FIBULA 2 VIEWS DRESSING 63184 A C ELSA CHANGE 7 [facility] [place] UNDER PSC ANESTHESI A CUL BACT 48426 [facility] XCPT 7 [facility] URINE INC INC BLOOD/STO OL AEROBIC ISOL CUL BACT 20725 [facility] AEROBIC 7 [facility] ADDL INC INC METHS DEFINITIV E EA ISOL COLLECTIO 23114 [facility] N VENOUS 7 [facility] BLOOD INC INC VENIPUNCT URE BLOOD 97896 [facility] COUNT 7 [facility] COMPLETE INC INC AUTO&AUTO DIFRNTL WBC SUSCEPTIB 31621 [facility] LTY STDY 7 [facility] ANTIMICRB INC INC IAL MICRO/AGA R DILUTJ INJECTION J1030 A Adonis HUNTER 7 [place] METHYLPRE PSC DNISOLONE ACETATE 40 MG COLLECTIO 81729 A Adonis HUNTER N VENOUS 7 [place] BLOOD PSC VENIPUNCT URE INJECTION J3420 A Adonis HUNTER VIT B-12 7 [place] PSC CYANOCOBA ALETA TO 1000 MCG INJECTION J3301 A Adonis HUNTER 7 [place] TRIAMCINO PSC LONE ACETONIDE NOS 10 MG THERAPEUT 85604 A Adonis HUNTER IC 7 [place] PROPHYLAC PSC TIC/DX INJECTION SUBQ/IM BLOOD 89410 A Adonis HUNTER COUNT 7 [place] COMPLETE PSC AUTO&AUTO DIFRNTL WBC AMB A0427 [facility] 7 AMBULANCE AMBULANCE ALS SERVICE SERVICE EMERGENCY TRANSPORT LEVEL 1 IM ADM 95199 [facility] PRQ ID 7 [facility] SUBQ/IM INC INC NJXS 1 VACCINE TDAP 14902 [facility] VACCINE 7 7 [facility] YRS/> IM INC INC SMPL RPR 13325 [facility] SCALP/NEC 7 [facility] K/AX/GWENDOLYN INC INC T/TRUNK 12.6-20.0 CM GROUND A0425 [facility] PER SERVICE SERVICE STATUTE MILE O2 CONC 1 E1390 [facility] DEANGELO DEL PORT 7 MANOR MANOR 85%/>02 INC- INC- CONC AT [facility] FLW RATE CYANOCOBA 00106 COMBINED COMBINED ALETA 7 PHYSICIAN PHYSICIAN VITAMIN S LA S LA B-12 BLOOD 60410 COMBINED COMBINED COUNT 7 PHYSICIAN PHYSICIAN COMPLETE S LA S LA AUTO&AUTO DIFRNTL WBC TRAVEL [address] MED 7 PHYSICIAN PHYSICIAN NEC LAB S LA S LA SPEC; PRORAT ACTL MILE BASIC 99739 COMBINED COMBINED METABOLIC 7 PHYSICIAN PHYSICIAN PANEL S LA S LA CALCIUM TOTAL COLLECTIO 84077 COMBINED COMBINED N VENOUS 7 PHYSICIAN PHYSICIAN BLOOD S LA S LA VENIPUNCT URE O2 CONC 1 E1390 [facility] DEANGELO DEL PORT 7 MANOR MANOR 85%/>02 INC- INC- CONC AT [facility] FLW RATE AMBULANCE A0428 [facility] 7 AMBULANCE AMBULANCE BLS SERVICE SERVICE NONEMERGE NCY TRANSPORT SBSQ 76457 [facility] 7 PHYSICIAN CARE/DAY S GROUP 15 MINUTES GROUND A0425 [facility] 7 AMBULANCE AMBULANCE PER SERVICE SERVICE STATUTE MILE GROUND A0425 [facility] 7 AMBULANCE AMBULANCE PER SERVICE SERVICE STATUTE MILE ECG 03091 [facility]AT[facility] JR ROUTINE 7 [facility] W/LEAST P 12 LDS I&R ONLY AMB A0427 [facility] 7 AMBULANCE AMBULANCE ALS SERVICE SERVICE [place] [address] [facility] HEAD/BRAI 7 MEDICAL N W/O IMAGING CONTRAST ASS MATERIAL RADIOLOGI 15816 [facility] ANN C 7 MEDICAL EXAMINATI IMAGING [place] [address] [facility] THYROID 7 CH[facility] CHIDI STIMULATI HOLDINGS [place] [address] [facility] THYROID 7 CHIDI CHIDI STIMULATI HOLDINGS [place] [address] [facility] FREE 7 CHIDI CHIDI THYROXINE HOLDINGS HOLDINGS BASIC 50641 [facility] METABOLIC 7 CHIDI CHIDI PANEL HOLDINGS HOLDINGS CALCIUM TOTAL CYANOCOBA 83019 [facility] WILLY ALETA 7 CHIDI CHIDI VITAMIN HOLDINGS HOLDINGS B-12 SEAT E0156 [facility] ATTACHMEN 7 HOME HOME T WALKER MEDICAL MEDICAL EQUIPME EQUIPME WALKER E0143 [facility] FOLDING 7 HOME HOME WHEELED MEDICAL MEDICAL ADJUSTABL EQUIPME EQUIPME E/FIXED HEIGHT BASIC 93652 [facility] METABOLIC 7 CHIDI CHIDI PANEL [place] [address] [facility] FREE 7 CHIDI CHIDI [place] [address] [facility] LAB WILLY THYROID 7 CHIDI CHIDI STIMULATI HOLDINGS HOLDINGS NG HORMONE TSH BASIC 17080 LAB [facility]Y METABOLIC 6 CHIDI CHIDI PANEL [place] [address] [facility] LAB WILLY THYROID 6 CHIDI CHIDI STIMULATI HOLD[place] [address] LAB [facility] LAB WILLY THYROID 6 CHIDI CHIDI STIMULATI HOLDINGS [place] [address] [facility] LAB WILLY FREE 6 CHIDI CHIDI THYROXINE HOLDINGS HOLDINGS BASIC 44006 LAB [facility] LAB WILLY METABOLIC 6 CHIDI CHIDI PANEL HOLDINGS HOLDINGS CALCIUM TOTAL CYANOCOBA 44267 LAB [facility] LAB WILLY ALETA 6 CHIDI CHIDI VITAMIN HOLDINGS HOLDINGS B-12 BASIC 67242 LAB [facility] LAB WILLY METABOLIC 6 CHIDI CHIDI PANEL [place] [address] LAB [facility] LAB [facility] FREE 6 CHIDI CHID[place] [address] LAB WILL[facility] LAB WILLY THYROID 6 [facility] CHIDI STIMULATI HOLDINGS HOLDINGS NG HORMONE TSH DUPLEX 99486 [facility] MARY SCAN 6 MEDICAL JONELLE EXTRACRAN IMAGING IAL ART ASS COMPL BI STUDY COMPREHEN 58678 [facility] SIVE 6 DIAGNOSTI DIAGNOSTI METABOLIC CS CS PANEL INCORPORA INCORPORA T T BLOOD 66118 [facility] COUNT 6 DIAGNOSTI DIAGNOSTI COMPLETE CS CS AUTO&AUTO INCORPORA INCORPORA DIFRNTL T T WBC THERAPEUT 18954 A Adonis HUNTER IC 6 [facility] PROPHYLAC PSC TIC/DX INJECTION SUBQ/[place] [address] [facility] FERRITIN 6 DIAGNOSTI DIAGNOSTI CS CS INCORPORA INCORPORA T T INJECTION J3420 A Adonis HUNTER VIT B-12 6 [facility] PSC CYANOCOBA ALETA TO [address] [place] [address] [facility] THYROID 6 DIAGNOSTI DIAGNOSTI STIMULATI CS CS NG INCORPORA [place] [address] [facility] FREE 6 DIAGNOSTI DIAGNOSTI THYROXINE CS CS INCORPORA INCORPORA T T INJ J0702 A Adonis HUNTER BETAMETHA 6 [facility] SONE PSC ACETATE & PHOSPHATE 3 MG INJECTION J1030 A Adonis HUNTER 6 [facility] METHYLPRE PSC DNISOLONE ACETATE 40 MG BASIC 87324 [facility] METABOLIC 6 [facility] CHIDI PANEL HOLD[place] [address] LAB [facility] LAB WILLY FREE 6 CHIDI CHIDI [place] [address] LAB [facility] LAB WILLY THYROID 6 CHIDI CHIDI STIMULATI HOLDINGS HOLDINGS NG HORMONE TSH CYANOCOBA 77233 [facility] WILLY ALETA 6 CH[facility] CHIDI VITAMIN HOLDINGS HOLDINGS B-12 Encounters Encounter Start End Date Code Location Performer Type Date OFFICE 00499 [facility] OUTPATIEN 7 7 PHYSICIAN T VISIT S GROUP 15 MINUTES OFFICE 13826 Yakov TONG OUTPATIEN 7 7 [facility] T VISIT PSC 15 MINUTES EMERGENCY 47656 [facility] ANDERSON DEPT 7 7 PHYSICIAN VISIT S, PLLC HIGH SEVERITY& THREAT [facility] GARY - 7 7 [facility] OUTPATIEN INC T OFFICE 96420 A Adonis TAY 7 7 [facility] [place] T VISIT PSC 15 MINUTES OFFICE 41662 A Adonis TAY 7 7 [place] T VISIT PSC 15 MINUTES EMERGENCY 32293 AISHA ROWE 7 7 PHYSICIAN [facility] T VISIT HIGH/URGE NT SEVERITY EMERGENCY 78963 [facility] 7 7 [facility] DEPARTMEN INC T VISIT LOW/MODER SEVERITY HOSPITAL [facility] - 7 7 [facility] OUTPATIEN INC T OFFICE 48906 A Adonis TAY 7 7 [facility] [place] T VISIT PSC 15 MINUTES EMERGENCY 70662 AISHA ANDRE 7 7 PHYSICIAN U [facility] T VISIT MODERATE SEVERITY EMERGENCY 77632 [facility] 7 7 [facility] DEPARTMEN INC T VISIT HIGH/URGE NT SEVERITY HOSPITAL [facility] - 7 7 [facility] OUTPATIEN [facility] INPATIENT 7 7 [facility]PATIENT 7 7 [facility] GARY - 6 6 [facility] OUTPATIEN INC T OFFICE 37625 A Adonis HUNTER OUTSTEPHANIE 6 6 [facility] T VISIT PSC 15 MINUTES [facility] 6 6 [facility] - OTHER INC- SPECIAL [facility] FACILITY 5 5 [facility] - OTHER INC- OFFICE 54213 [facility] OUT[facility] 5 5 N T NEW 45 NEUROLOGY MINUTES
--- OUTSIDE RECORDS SUMMARY | 2017-04-04 15:57 | External Medical Summary Rpt | CCD ---
Demographics Preferred Language Turkmen Marital Status Unknown Taoism Affiliation Unknown Race Unknown Ethnic Group Unknown Author Author , VIRGINIA COLEMAN Address Unknown Phone Immunization Unable to retrieve immunization data due to connection failure with Immunization Registry. Please try again later.
--- OUTSIDE RECORDS SUMMARY | 2017-04-04 15:57 | External Medical Summary Rpt | CCD ---
Demographics Preferred Language Maltese Marital Status Unknown Zoroastrian Affiliation Unknown Race Unknown Ethnic Group Unknown Author Author , VIRGINIA COLEMAN Address Unknown Phone Immunization Unable to retrieve immunization data due to connection failure with Immunization Registry. Please try again later.
--- OUTSIDE RECORDS SUMMARY | 2017-04-04 15:57 | External Medical Summary Rpt | CCD ---
Author Author , VIR[place]IA Organization [place] Address Unknown Phone [email or web address] Care Team Providers Care Lsw Name Role Phone A Adonis SIMMONS MD [...] Unavailable Unavailable ELSA CABAN Unavailable Unavailable [facility], Unavailable Unavailable [facility] Unavailable Unavailable INC, [facility] Unavailable Unavailable HOSPITAL P, [facility], Unavailable Unavailable [facility] ANDERSON, ANDERSON Unavailable Unavailable [facility] KILPELA, KILPELA Unavailable Unavailable [...] Diagnosis DOS Provider Status I10 ESSENTIAL 03-01-2017 [facility] PRIMARY PHYSICIANS HYPERTENSIO GROUP N I2510 ASHD TANGIRNAQ 03-01-2017 [facility] 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 OLD 03-01-2017 [facility] MYOCARDIAL PHYSICIANS INFARCTION GROUP I255 ISCHEMIC 03-01-2017 [facility] CARDIOMYOPA PHYSICIANS THY GROUP I5021 ACUTE 03-01-2017 [facility] SYSTOLIC PHYSICIANS CONGESTIVE GROUP HEART FAILURE I509 HEART 03-01-2017 [facility] FAILURE PHYSICIANS UNSPECIFIED GROUP Z955 PRESENCE OF 03-01-2017 [facility] 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 I214 NON-ST 02-17-2017 [facility] ELEVATION PHYSICIANS MYOCARDIAL GROUP INFARCTION I5020 UNSPECIFIED 02-17-2017 [facility] SYSTOLIC PHYSICIANS CONGESTIVE GROUP HEART FAILURE J90 PLEURAL 02-17-2017 [facility] NOT [facility]ING [facility] ELSEWHERE CLASSIFIED R0602 SHORTNESS 02-17-2017 [facility] R918 OTHER 02-17-2017 [facility] NONSPECIFIC [facility]ICAL ABNORMAL IMAGING ASS FINDING OF LUNG FIELD E785 HYPERLIPIDE 02-15-2017 [facility] MACIEL PHYSICIANS UNSPECIFIED GROUP J56644 ASHD TANGIRNAQ 02-15-2017 [facility] COR ART PHYSICIANS W/UNSTABLE GROUP ANGINA PECTORIS I6529 OCCLUSION & 02-15-2017 [facility] STENOSIS PHYSICIANS UNSPECIFIED GROUP CAROTID ARTERY N183 CHRONIC 02-15-2017 [facility] KIDNEY PHYSICIANS DISEASE GROUP STAGE 3 MODERATE R05 COUGH 02-15-2017 [facility] 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 [facility] PHYSICIANS AORTOCORONA GROUP RY BYPASS GRAFT R110 NAUSEA 02-14-2017 [facility] R410 DISORIENTAT 02-14-2017 [facility] ION PHYSICIANS, UNSPECIFIED PLLC R4182 ALTERED 02-14-2017 [facility] M[facility] STATUS [facility] UNSPECIFIED R5381 OTHER 02-14-2017 [facility] R7989 OTHER SPEC 02-14-2017 [facility] ABNORMAL PHYSICIANS, FINDINGS PLLC BLOOD CHEMISTRY M7989 OTHER 02-04-2017 [facility] SPECIFIED MEDICAL SOFT TISSUE IMAGING ASS DISORDERS [id number] LACERATION 02-04-2017 A Adonis SIMMONS W/O FOREIGN PSC BODY LT LOW LEG SBSQT ENC [id number] UNS INJURY 02-04-2017 [facility] RT LOWER MEDICAL LEG INITIAL IMAGING ASS ENCOUNTER [id number] UNS INJURY 02-04-2017 [facility] LEG INC SUBSEQUENT ENCOUNTER [id number] FALL FROM 02-04-2017 A Adonis VELASQUEZ MD PSC SUBSEQUENT ENCOUNTER Z23 ENCOUNTER 02-04-2017 A Adonis CONWAY MD PSC IMMUNIZATIO N D649 ANEMIA 01-23-2017 [facility] UNSPECIFIED PHYSICIANS, PLLC [id number] LACERATION 01-23-2017 [facility] W/O FOREIGN PHYSICIANS, BODY LT PLLC LOW LEG INIT ENC T14080 OTHER LONG 01-23-2017 [facility] CURRENT INC DRUG THERAPY E538 DEFICIENCY 01-20-2017 A Adonis SIMMONS OF [place] PSC SPECIFIED B GROUP VITAMINS M1990 UNSPECIFIED 01-20-2017 A Adonis SIMMONS MD PSC OSTEOARTHRI TIS UNSPECIFIED SITE [id number] OTHER SPEC 01-19-2017 [facility] [...] G20 PARKINSONS 12-23-2016 [facility] SERVICE E62369 ASHD TANGIRNAQ 12-21-2016 [facility] ANGINA PECTORIS S37588 ATHEROSCLER 12-21-2016 [facility] P ARTERY CABG W/RUST AP R079 CHEST PAIN 12-21-2016 [facility] R531 WEAKNESS 12-21-2016 [facility] P R5383 OTHER 12-21-2016 [facility] E039 HYPOTHYROID 12-08-2016 [...] BACK 10-07-2015 A Adonis SIMMONS PAIN PSC I18157 PAIN IN 08-06-2015 [facility] RIGHT HIP [facility] R296 REPEATED 06-06-2015 [facility] [place] [facility]- G250 ESSENTIAL 05-13-2015 [facility] Medications Na ND Rx Da [...] -2 -2 0. D 66 SS ti MS 63 0- 8- 00 CA 58 ON ve N 79 20 20 0 RE 02 D3 [address] 1 PH EP 2, AR HE 00 MA N 0 CY A UN IT LL C SO FT GE L 00 07 07 0 18 18 ME 14 BE Ac TA 90 -2 -2 0. D 67 SS ti MS 44 7- 7- 00 CA 72 ON ve N 21 20 20 0 RE 90 B- [address] 12 3 PH EP AR HE 1, MA N 00 CY A 0 MC LL G C TA BL ET 00 07 07 0 10 10 ME 14 BE Ac TA 53 -2 -2 0. D 63 SS ti MS 63 0- 0- 00 CA 48 ON ve N 79 20 20 0 RE 12 D3 [address] 1 PH EP 2, AR HE 00 MA N 0 CY A UN IT LL C SO FT GE L 00 12 01 0 60 6 ME 12 BE Ac TA 53 -2 -2 .0 D 05 SS ti MS 63 9- 5- 00 CA 55 ON [...] 9- 8- .0 CA 14 ON ve MA 04 20 20 00 RE 37 OT [address] EC 4 PH EP T AR HE CR MA N EA CY A M LL C BA 11 12 12 0 14 15 ME 11 BE Ac ZA 70 -2 -2 20 D 97 SS ti 10 9- 9- .0 CA 38 ON ve MA 04 20 20 00 RE 56 OT [...] -2 -2 0. D 97 SS ti MS 63 9- 9- 00 CA 38 ON [...] Procedure DOS Code Location Performer Comment ECG 77107 [facility] ROUTINE 7 PHYSICIAN ECG S GROUP W/LEAST 12 LDS I&R ONLY RADIOLOGI 94824 [facility] EXAM 7 MEDICAL CHEST 2 IMAGING VIEWS ASS FRONTAL&L ATERAL SBSQ 84674 [place] [address] PHYSICIAN CARE/DAY S GROUP 15 MINUTES SBSQ 41227 [place] [address] PHYSICIAN CARE/DAY S GROUP 15 MINUTES PRQ 83890 [facility] TRLUML 7 PHYSICIAN CORONARY S GROUP STENT W/ANGIO ONE ART/BRNCH INITIAL 77160 [place] [address] PHYSICIAN CARE/DAY S GROUP 70 MINUTES RADIOLOGI 74615 [facility] C 7 MEDICAL EXAMINATI IMAGING ON CHEST ASS SINGLE [place]IEW FRONTAL CATH PLMT [address] [facility] L 7 PHYSICIAN HRT/ARTS/ S GROUP GRFTS WNJX & ANGIO IMG S&I ECG 77231 [facility] ROUTINE 7 PHYSICIAN ECG S, PLLC W/LEAST 12 LDS I&R ONLY RADIOLOGI 12192 [facility] C 7 MEDICAL EXAMINATI IMAGING [place] [address] [facility] J[facility] HEAD/BRAI 7 MEDICAL N W/O IMAGING CONTRAST ASS MATERIAL IIV 16753 A C ELSA VACCINE 7 [place] PRESERV PSC FREE INCREASED AG CONTENT IM ADMINISTR G0008 A Adonis HUNTER ATION OF 7 [place] INFLUENZA PSC VIRUS VACCINE RADIOLOGI 90715 [facility] C 7 MEDICAL EXAMINATI IMAGING ON TIBIA ASS & FIBULA 2 VIEWS DRESSING 08144 A C ELSA CHANGE 7 [place] UNDER PSC ANESTHESI A CUL BACT 04302 [facility] XCPT 7 [facility] URINE INC INC BLOOD/STO OL AEROBIC ISOL CUL BACT 19539 [facility] AEROBIC 7 [facility] ADDL INC INC METHS DEFINITIV E EA ISOL COLLECTIO 74703 [facility] N VENOUS 7 [facility] BLOOD INC INC VENIPUNCT URE BLOOD 22998 [facility] COUNT 7 [facility] COMPLETE INC INC AUTO&AUTO DIFRNTL WBC SUSCEPTIB 32669 [facility] LTY STDY 7 [facility] ANTIMICRB INC INC IAL MICRO/AGA R DILUTJ INJECTION J1030 A Adonis HUNTER 7 [place] METHYLPRE PSC DNISOLONE ACETATE 40 MG COLLECTIO 45754 A Adonis HUNTER N VENOUS 7 [place] BLOOD PSC VENIPUNCT URE INJECTION J3420 A Adonis HUNTER VIT B-12 7 [place] PSC CYANOCOBA ALETA TO 1000 MCG INJECTION J3301 A Adonis HUNTER 7 [place] TRIAMCINO PSC LONE ACETONIDE NOS 10 MG THERAPEUT 97870 A Adonis HUNTER IC 7 [place] PROPHYLAC PSC TIC/DX INJECTION SUBQ/IM BLOOD 84142 A Adonis HUNTER COUNT 7 [place] COMPLETE PSC AUTO&AUTO DIFRNTL WBC AMB A0427 [facility] SERVICE 7 AMBULANCE AMBULANCE ALS SERVICE SERVICE EMERGENCY TRANSPORT LEVEL 1 IM ADM 59851 [facility] PRQ ID 7 [facility] SUBQ/IM INC INC NJXS 1 VACCINE TDAP 15296 [facility] VACCINE 7 7 [facility] YRS/> IM INC INC SMPL RPR 94306 [facility] SCALP/NEC 7 [facility] K/AX/GWENDOLYN INC INC T/TRUNK 12.6-20.0 CM [facility] A0425 [facility] PER SERVICE SERVICE STATUTE MILE O2 CONC 1 E1390 [facility] DEANGEL[facility] DEL PORT 7 MANOR MANOR 85%/>02 INC- INC- CONC AT [facility] FLW RATE CYANOCOBA 90084 COMBINED COMBINED ALETA 7 PHYSICIAN PHYSICIAN VITAMIN S LA S LA B-12 BLOOD 11247 COMBINED COMBINED COUNT 7 PHYSICIAN PHYSICIAN COMPLETE S LA S LA AUTO&AUTO DIFRNTL WBC TRAVEL [address] MED 7 PHYSICIAN PHYSICIAN NEC LAB S LA S LA SPEC; PRORAT ACTL MILE BASIC 95859 COMBINED COMBINED METABOLIC 7 PHYSICIAN PHYSICIAN PANEL S LA S LA CALCIUM TOTAL COLLECTIO 67253 COMBINED COMBINED N VENOUS 7 PHYSICIAN PHYSICIAN BLOOD S LA S LA VENIPUNCT URE O2 CONC 1 E1390 [facility] DEANGEL[facility] DEL PORT 7 MANOR MANOR 85%/>02 INC- INC- CONC AT [facility] FLW RATE AMBULANCE A0428 [facility] 7 AMBULANCE AMBULANCE BLS SERVICE SERVICE NONEMERGE NCY TRANSPORT SBSQ 49399 [facility] 7 PHYSICIAN CARE/DAY S GROUP 15 MINUTES GROUND A0425 [facility] 7 AMBULANCE AMBULANCE PER SERVICE SERVICE STATUTE MILE GROUND A0425 [facility] 7 AMBULANCE AMBULANCE PER SERVICE SERVICE STATUTE MILE ECG 95788 [facility] WATTS JR ROUTINE 7 [facility] W/LEAST P 12 LDS I&R ONLY AMB A0427 [facility] 7 AMBULANCE AMBULANCE ALS SERVICE SERVICE [place] [address] [facility] HEAD/BRAI 7 MEDICAL N W/O IMAGING CONTRAST ASS MATERIAL RADIOLOGI 05605 [facility] ANN C 7 MEDICAL EXAMINATI IMAGING ON [place] [address] [facility] THYROID 7 CHIDI CHIDI STIMULATI [place] [address] [facility] THYROID 7 CHIDI CHIDI STIMULATI [place] [address] [facility] FREE 7 CHIDI CHIDI THYROXINE HOLDINGS HOLDINGS BASIC 43463 [facility] METABOLIC 7 CHIDI CHIDI PANEL HOLDINGS HOLDINGS CALCIUM TOTAL CYANOCOBA 25892 [facility] ALETA 7 CH[facility]I CH[facility]I VITAMIN HOLDINGS HOLDINGS B-12 SEAT E0156 [facility] H[facility]TER ATTACHMEN 7 HOME HOME T WALKER MEDICAL MEDICAL EQUIPME EQUIPME WALKER E0143 HUNTER HUNTER FOLDING 7 HOME HOME WHEELED MEDICAL MEDICAL ADJUSTABL EQUIPME EQUIPME E/FIXED HEIGHT BASIC 06027 [facility] METABOLIC 7 CHIDI CHIDI PANEL [place] [address] [facility] FREE 7 CHIDI CHIDI [place] [address] [facility] WILLY THYROID 7 CHIDI CHIDI STIMULATI HOLDINGS HOLDINGS NG HORMONE TSH BASIC 76736 [facility] METABOLIC 6 CHIDI CHIDI PANEL [place] [address] [facility] WILLY THYROID 6 CHIDI CHIDI STIMULATI [place] [address] [facility] WILLY THYROID 6 CHIDI CHIDI STIMULATI [employer] [address] [facility] FREE 6 CHIDI CHIDI THYROXINE HOLDINGS HOLDINGS BASIC 66943 LAB [facility] METABOLIC 6 CHIDI CHIDI PANEL HOLDINGS HOLDINGS CALCIUM TOTAL CYANOCOBA 98820 [facility] ALETA 6 CHIDI CHIDI VITAMIN HOLDINGS HOLDINGS B-12 BASIC 47373 [facility] METABOLIC 6 CHIDI CHIDI PANEL [place] [address] [facility] FREE 6 CHIDI CHID[place] [address] [facility] THYROID 6 [facility] CHIDI STIMULATI HOLDINGS HOLDINGS NG HORMONE TSH DUPLEX 77872 MAINE MARY SCAN 6 MEDICAL JONELLE EXTRACRAN IMAGING IAL ART ASS COMPL BI STUDY COMPREHEN 85275 [facility] QUEST SIVE 6 DIAGNOSTI DIAGNOSTI METABOLIC CS CS PANEL INCORPORA INCORPORA T T BLOOD 74320 [facility] QUEST COUNT 6 DIAGNOSTI DIAGNOSTI COMPLETE CS CS AUTO&AUTO INCORPORA INCORPORA DIFRNTL T T WBC THERAPEUT 45283 A Adonis HUNTER IC 6 [facility] PROPHYLAC PSC TIC/DX INJECTION SUBQ/[place] [address] QUEST QUEST FERRITIN 6 DIAGNOSTI DIAGNOSTI CS CS INCORPORA INCORPORA T T INJECTION J3420 A Adonis HUNTER VIT B-12 6 [facility] PSC CYANOCOBA ALETA TO [address] [place] [address] QUEST QUEST THYROID 6 DIAGNOSTI DIAGNOSTI STIMULATI CS CS NG INCORPOR[place] [address] QUEST QUEST FREE 6 DIAGNOSTI DIAGNOSTI THYROXINE CS CS INCORPORA INCORPORA T T INJ J0702 A Adonis HUNTER BETAMETHA 6 [facility] SONE PSC ACETATE & PHOSPHATE 3 MG INJECTION J1030 A Adonis HUNTER 6 [facility] METHYLPRE PSC DNISOLONE ACETATE 40 MG BASIC 50594 [facility] METABOLIC 6 CHIDI CHIDI PANEL [place] [address] [facility] FREE 6 CHIDI CHIDI [place] [address] [facility] LAB WILLY THYROID 6 CHIDI CHIDI STIMULATI HOLDINGS HOLDINGS NG HORMONE TSH CYANOCOBA 40075 [facility] ALETA 6 CHIDI CHIDI VITAMIN HOLDINGS HOLDINGS B-12 Encounters Encounter Start End Date Code Location Performer Type Date OFFICE 06905 [facility] NATHAN OUTPATIEN 7 7 PHYSICIAN T VISIT S GROUP 15 MINUTES OFFICE 99811 Yakov TONG OUTPATIEN 7 7 [facility] [place] T VISIT PSC 15 MINUTES EMERGENCY 17756 [facility] DEPT 7 7 PHYSICIAN VISIT S, PLLC HIGH SEVERITY& THREAT [facility] - 7 7 [facility] OUTPATIEN INC T OFFICE 43352 A Adonis TAY 7 7 [place] [place] T VISIT PSC 15 MINUTES OFFICE 09710 A Adonis TAY 7 7 [place] T VISIT PSC 15 MINUTES EMERGENCY 28599 AISHA ROWE 7 7 PHYSICIAN [facility] T VISIT HIGH/URGE NT SEVERITY EMERGENCY 47085 [facility] 7 7 [facility] DEPARTMEN INC T VISIT LOW/MODER SEVERITY HOSPITAL [facility] - 7 7 [facility] OUTPATIEN INC T OFFICE 57653 A Adonis TAY 7 7 [place] T VISIT PSC 15 MINUTES EMERGENCY 44342 AISHA ANDRE 7 7 PHYSICIAN [facility] T VISIT MODERATE SEVERITY EMERGENCY 83889 [facility] 7 7 [facility] DEPARTMEN INC T VISIT HIGH/URGE NT SEVERITY HOSPITAL [facility] - 7 7 [facility] OUTPATIEN [facility] INPATIENT 7 7 MANOR [facility] DEANGELO INPATIENT 7 7 LA [facility] GARY - 6 6 [facility] OUTPATIEN INC T OFFICE 41085 A Adonis HUNTER OUTSTEPHANIE 6 6 [facility] T VISIT PSC 15 MINUTES SPECIAL [facility] FACILITY 6 6 MANOR - OTHER INC- SPECIAL [facility] FACILITY 5 5 MANOR - OTHER INC- OFFICE 96643 [facility] 5 5 N T NEW 45 NEUROLOGY MINUTES
--- OUTSIDE RECORDS SUMMARY | 2017-04-04 16:00 | External Medical Summary Rpt ---
Author Author TIFFSHYANNE Fernández, [employer] Organization [employer] Address Unknown Phone Unavailable Results CBC W Auto Differential panel in Blood Observa Value Referen Units Interpr Notes Date tion ce etation Range Basophils 0 - 0.2 K/MM3 Normal No Apr 04 informati 2016 2:19 [#/volume on in PM ] in source Blood by data Automated count Basophils 0.1 - 2.0 % Normal No Apr 04 informati 2016 2:19 leukocyte on in PM s in source Blood by data Automated count Eosinophi 0.0 - 0.4 K/mm3 Normal No Apr 04 ls informati 2016 2:19 [#/volume on in PM ] in source Blood by data Automated count Eosinophi 0.1 - % Normal No Apr 04 ls/100 12.0 informati 2016 2:19 leukocyte on in PM s in source Blood by data Automated count Granulocy 1.8 - 7.8 K/mm3 High No Apr 04 olya informati 2016 2:19 [#/volume on in PM ] in source Blood by data Automated count Granulocy 37.0 - % High No Apr 04 olya/100 80.0 informati 2016 2:19 leukocyte on in PM s in source Blood by data Automated count Hematocri 37.0 - % Low alert Apr 04 t [Volume 47.0 2016 2:19 CRITICAL PM Fraction] RESULTS of Blood RESU LTS CALLED TO: TONYA.EAL 04/04/17 150[address] Hemoglobi 12.2 - g/dL Low alert Apr 04 n 16.2 2016 2:19 [Mass/vol CRITICAL PM ume] in RESULTS Blood RESU LTS CALLED TO: TONYA.EAL 04/04/17 [address] Lymphocyt 0.7 - 4.5 K/mm3 Normal No Mar 30 es informati 2016 2:19 [#/volume on in PM ] in source Unspecifi data ed specimen by Automated count Lymphocyt 10 - 50.0 % Low No Mar 30 es informati 2016 2:19 [#/volume on in PM ] in source Unspecifi data ed specimen by Automated count Erythrocy 27 - 31.2 pg Normal No Mar 30 te mean informati 2016 2:19 corpuscul on in PM ar source hemoglobi data n [Entitic mass] Erythrocy 31.8 - g/dl Low No Apr 04 te mean 35.4 informati 2016 2:19 corpuscul on in PM ar source hemoglobi data n concentra tion [Mass/vol ume] by Automated count Erythrocy 82.2 - fl Normal No Apr 04 te mean 97.8 informati 2016 2:19 corpuscul on in PM ar volume source [Entitic data volume] by Automated count Monocytes 0.1 - 1.0 K/mm3 Normal No Apr 04 informati 2016 2:19 [#/volume on in PM ] in source Blood by data Automated count Monocytes 1.7 - 9.3 % Normal No Mar 30 /100 informati 2017 2:19 leukocyte on in PM s in source Blood by data Automated count Platelet 7.4 - fl Low No Apr 04 mean 10.4 informati 2016 2:19 volume on in PM [Entitic source volume] data in Blood by Automated count Platelets 142 - 424 K/mm3 High No Mar 30 informati 2016 2:19 [#/volume on in PM ] in source Blood data Erythrocy 4.2 - 5.4 M/mm3 Low No Mar 30 olya informati 2016 2:19 [#/volume on in PM ] in source Amniotic data fluid Erythrocy 11.5 - % Normal No Apr 04 te 17.5 informati 2016 2:19 distribut on in PM ion width source [Entitic data volume] by Automated count Leukocyte 4.8 - K/MM3 High No Mar 30 s 10.8 informati 2016 2:19 [#/volume on in PM ] in source Blood data Cardiac enzymes Observa Value Referen Units Interpr Notes Date tion ce etation Range Creatine 0 - 4.0 U/L High No Mar 30 kinase.MB alert informati 2017 2:19 /Creatine on in PM source kinase.to data sergio [Ratio] in Serum or Plasma Creatine 0.0 - 3.6 ng/mL Normal No Apr 04 kinase.MB informati 2017 2:19 on in PM [Mass/vol source ume] in data Serum or Plasma Creatine 26 - 192 U/L Low No Apr 04 kinase informati 2017 2:19 [Enzymati on in PM c source activity/ data volume] in Serum or Plasma Troponin 0.00 - ng/mL Normal No Apr 04 I.cardiac 0.06 informati 2017 2:19 on in PM [Mass/vol source ume] in data Serum or Plasma Comprehensive metabolic 2000 panel in Serum or Plasma Observa Value Referen Units Interpr Notes Date tion ce etation Range Albumin/G 1.1 - 1.8 No Low No Apr 04 lobulin informati informati 2017 2:19 [Mass on in on in PM ratio] in source source Serum or data data Plasma Albumin 3.4 - 5.0 gm/dL Low No Apr 04 [Mass/vol informati 2017 2:19 ume] in on in PM Serum or source Plasma data Alkaline 46 - 116 U/L Normal No Apr 04 phosphata informati 2017 2:19 se on in PM [Enzymati source c data activity/ volume] in Serum or Plasma Bilirubin 0.2 - 1.0 mg/dL Normal No Apr 04 .total informati 2017 2:19 [Mass/vol on in PM ume] in source Serum or data Plasma Urea 7 - 18 mg/dL High No Apr 04 nitrogen informati 2016 2:19 [Mass/vol on in PM ume] in source Serum or data Plasma Calcium 8.5 - mg/dL Normal No Apr 04 [Mass/vol 10.1 informati 2017 2:19 ume] in on in PM Serum or source Plasma data Chloride 98 - 107 mmoL/L Normal No Apr 04 [Moles/vo informati 2017 2:19 lume] in on in PM Serum or source Plasma data Carbon 21.0 - mmoL/L Normal No Apr 04 dioxide, 32.0 informati 2017 2:19 total on in PM [Moles/vo source lume] in data Serum or Plasma Creatinin 0.55 - mg/dL High No Mar 30 e 1.02 informati 2017 2:19 [Mass/vol on in PM ume] in source Serum or data Plasma Creatinin 50 - 200 ML/MIN Low No Apr 04 e renal informati 2017 2:19 clearance on in PM source predicted data by Cockcroft -Gault formula Estimated 59- ML/MIN Low REFERENCE Apr 04 RANGE: 2016 2:19 glomerula >60 PM r ML/MIN/1. filtratio 73 SQUARE n rate METERSIf (GF this patient is -A merican, then multiply theresult by 1.210. Globulin 1.3 - 3.2 gm/dL High No Apr 04 [Mass/vol informati 2016 2:19 ume] in on in PM Serum source data Glucose 74 - 106 mg/dL High No Apr 04 [Mass/vol informati 2016 2:19 ume] in on in PM Serum or source Plasma data Potassium 3.5 - 5.1 mmoL/L Normal No Apr 04 inform2016 2:19 [Moles/vo on in PM lume] in source Serum or data Plasma Sodium 136 - 145 mmoL/L Normal No Apr 04 [Moles/vo informati 2016 2:19 lume] in on in PM Serum or source Plasma data Aspartate 15 - 37 U/L Low No Apr 04 inform2016 2:19 aminotran on in PM sferase source [Enzymati data c activity/ volume] in Serum or Plasma Alanine 12 - 78 U/L Low No Apr 04 aminotran informati 2016 2:19 sferase on in PM [Enzymati source c data activity/ volume] in Serum or Plasma Protein 6.4 - 8.2 gm/dL Low No Apr 04 [Mass/vol informati 2016 2:19 ume] in on in PM Serum or source Plasma data Lipase [Enzymatic activity/volume] in Serum or Plasma Observa Value Referen Units Interpr Notes Date tion ce etation Range Lipase 73 - 393 U/L Normal No Apr 04 [Enzymati informati 2017 2:19 c on in PM activity/ source volume] data in Serum or Plasma Influenza virus A+B Ag [Presence] in Unspecified specimen Observa Value Referen Units Interpr Notes Date tion ce etation Range Influen NOT NOT No No No Apr 04 za DETECTE DETECTD informa informa informa 2017 virus A D tion in tion in tion in 2:05 PM Ag source source source [Presen data data data ce] in Unspeci fied specime n Influen NOT NOT No No No Apr 04 za DETECTE DETECTD informa informa informa 2017 virus B D tion in tion in tion in 2:05 PM Ag source source source [Presen data data data ce] in Unspeci fied specime n Cobalamin (Vitamin B12) [Mass/volume] in Serum Observa Value Referen Units Interpr Notes Date tion ce etation Range Cobalamin 211 - 946 pg/mL No Performed Mar 14 (Vitamin informati at: CB 2017 6:54 B12) on in - [facility] AM [Mass/vol source ume] in data [address] [place] [address] Serum 0 [place], [place] [id number] Consultant Nurse: Tian Holt PhD, Phone: [phone] Iron and TIBC Observa Value Referen Units Interpr Notes Date ti ce etation Range Iron 250 - 450 ug/dL No No Mar 14 binding informati informati 2016 6:54 capacity on in on in AM [Mass/vol source source ume] in data data Serum or Plasma Iron 118 - 369 ug/dL No No Mar 14 binding informati informati 2016 6:54 capacity. on in on in AM unsaturat source source ed data data [Mass/vol ume] in Serum or Plasma Iron 27 - 139 ug/dL No No Mar 14 [Mass/vol informati informati 2016 6:54 ume] in on in on in [...] Calcium 8.5 - mg/dL Normal No Mar 14 [Mass/vol 10.1 informati 2016 6:54 ume] in on in AM Serum or source Plasma data Chloride 98 - 107 mmoL/L Normal No Mar 9 [Moles/vo informati 2016 6:54 lume] in on in AM Serum or source Plasma data Carbon 21.0 - mmoL/L Normal No Mar 9 dioxide, 32.0 informati 2016 6:54 total on in AM [Moles/vo source lume] in data Serum or Plasma Creatinin 0.55 - mg/dL High No Oct 9 e 1.02 informati 2016 6:54 [Mass/vol on in AM ume] in source Serum or data Plasma Creatinin 50 - 200 ML/MIN Low No Mar 9 e renal informati 2017 6:54 clearance [...] 0 - 0.2 K/MM3 Normal No Mar 9 informati 2016 6:54 [#/volume on in AM ] in source Blood by data Automated count Basophils 0.1 - 2.0 % Normal No Mar 14 /100 informati 2016 6:54 leukocyte on in AM s in source Blood by data Automated count Eosinophi 0.0 - 0.4 K/mm3 Normal No Mar 9 ls informati 2016 6:54 [#/volume on in [...] Normal No Mar 14 olya/100 80.0 informati 2017 6:54 leukocyte on in AM s in source Blood by data Automated count Hematocri 37.0 - % Low No Mar 14 t [Volume 47.0 informati 2016 6:54 on in AM Fraction] source of Blood data Hemoglobi 12.2 - g/dL Low No Mar 14 n 16.2 informati 2017 6:54 [Mass/vol on in AM [...] 1.0 K/mm3 Normal No Mar 14 informati 2017 6:54 [#/volume on in AM ] in source Blood by data Automated count Monocytes 1.7 - 9.3 % Normal No Mar 14 informati 2017 6:54 leukocyte on in AM s in source Blood by data Automated count Platelet 7.4 - fl Normal No Mar 14 mean 10.4 informati 2016 6:54 volume on in AM [Entitic source volume] data in Blood by Automated count Platelets 142 - 424 K/mm3 Normal No Mar 14 informati 2016 [...] Value Referen Units Interpr Notes Date ti ce etation Range Reticuloc 0.9 - 3.2 % Normal No Mar 14 ytes inform2016 6:54 [#/volume on in AM ] in source Blood by data Automated count Cardiac enzymes Observa Value Referen Units Interpr Notes Date ti ce etation Range Creatine 0 - 4.0 U/L Normal No Mar 13 kinase.MB inform2016 /Creatine on in 12:34 PM source kinase.to data sergio [Ratio] in Serum or Plasma Creatine 0.0 - 3.6 ng/mL Normal No Mar 13 kinase.MB informati 2016 on in 12:34 PM [Mass/vol source ume] in data Serum or Plasma Creatine 26 - 192 U/L Low No Mar 13 kinase informati 2016 [Enzymati on in 12:34 PM c source activity/ data volume] in Serum or Plasma Troponin 0.00 - ng/mL Normal No Mar 13 I.cardiac 0.06 informati 2016 on in 12:34 PM [Mass/vol source ume] in data Serum or Plasma Comprehensive metabolic 2000 panel in Serum or Plasma Observa Value Referen Units Interpr Notes Date tion ce etation Range Albumin/G 1.1 - 1.8 No Low No Mar 13 lobulin informati informati 2016 [Mass on in on in 12:34 PM ratio] in source source Serum or data data Plasma Albumin 3.4 - 5.0 gm/dL Low No Mar 8 [Mass/vol informati 2017 ume] in on in 12:34 PM Serum or source Plasma data Alkaline 46 - 116 U/L Normal No Mar 13 phosphata informati 2017 se on in 12:34 PM [Enzymati source c data activity/ volume] in Serum or Plasma Bilirubin 0.2 - 1.0 mg/dL Normal No Oct 8 .total informati 2016 [Mass/vol on in 12:34 PM ume] [...] High No Oct 8 e 1.02 informati 2016 [Mass/vol on in 12:34 PM ume] [...] 6.4 - 8.2 gm/dL Low No Mar 13 [Mass/vol inform2016 ume] in on in 12:34 PM Serum [...] Erythrocy 31.8 - g/dl Low No Mar 8 te mean 35.4 inform2016 corpuscul on in 12:34 PM ar source hemoglobi data n concentra tion [Mass/vol ume] by Automated count Erythrocy 82.2 - fl Normal No Mar 8 te mean 97.8 informati 2016 corpuscul on in 12:34 PM ar volume source [Entitic data volume] by Automated count Monocytes 0.1 - 1.0 K/mm3 Normal No Mar 8 informati 2016 [#/volume on in 12:34 PM ] in source Blood by data Automated count Monocytes 1.7 - 9.3 % Normal No Mar 8 /100 informati 2017 leukocyte on in 12:34 PM s in source Blood by data Automated count Platelet 7.4 - fl Normal No Mar 8 mean 10.4 informati 2016 volume on in 12:34 PM [Entitic source volume] data in Blood by Automated count Platelets 142 - 424 K/mm3 Normal No Mar 8 inform2016 [#/volume on in 12:34 PM ] in source Blood data Erythrocy 4.2 - 5.4 M/mm3 Low No Mar 8 olya informati 2016 [#/volume on in 12:34 PM ] in source Amniotic data fluid Erythrocy 11.5 - % Normal No Mar 8 te 17.5 informati 2016 distribut on in 12:34 PM ion width source [Entitic data volume] by Automated count Leukocyte 4.8 - K/MM3 Normal No Mar 8 s 10.8 informati 2016 [#/volume on in [...] 59- ML/MIN Low REFERENCE Sep 14 RANGE: 2016 6:00 glomerula >60 AM r ML/MIN/1. 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: PER [place] PROTOCOL Cholester < 200 mg/dL No No [...] Normal No Sep 12 mean 10.4 informati 2016 6:22 volume on in AM [Entitic source [...] Normal No Sep 12 te 17.5 informati 2016 6:22 distribut on in AM ion width [...] No Sep 11 t [Volume 47.0 informati 2016 6:30 on in PM Fraction] source of Blood data Hemoglobi 12.2 - g/dL Low No Sep 11 n 16.2 informati 2016 6:30 [Mass/vol on in PM ume] in source Blood data Lymphocyt 0.7 - 4.5 K/mm3 Normal No Sep 11 es informati 2016 6:30 [#/volume on in PM ] in source Unspecifi data ed specimen by Automated count Lymphocyt 10 - 50.0 % Normal No Sep 11 es informati 2016 6:30 [#/volume on in PM ] in source Unspecifi data ed specimen by Automated count Erythrocy 27 - 31.2 pg Normal No Sep 11 te mean informati 2016 6:30 corpuscul on in PM [...] - 1.0 K/mm3 Normal No Sep 11 inform2016 6:30 [#/volume on in PM ] in [...] - 424 K/mm3 Normal No Sep 11 inform2016 6:30 [#/volume on in PM ] in [...] or RESU Plasma LTS CALLED TO: TONYA.CLA 02/14/17 1812 [place] nda> 0.5 IS CONSISTEN T WITH MYOCARDIA [...] Specific 1.005 - No Normal No Feb 14 gravity 1.030 informati informati 2016 5:00 of Urine on in on in PM source source data data Urobili 0.2 NEG E.U./dL No No Feb 14 nogen informa informa 2016 [Presen tion in [...] Low No Jan 23 t [Volume 47.0 informati 2016 on in 11:00 AM Fraction] source of Blood data Hemoglobi 12.2 - g/dL Low No Jan 23 n 16.2 informati 2016 [Mass/vol on in 11:00 AM ume] in source Blood data Lymphocyt 0.7 - 4.5 K/mm3 Normal No Jan 23 es inform2016 [#/volume [...] 9.3 % Normal No Jan 23 /100 inform2016 leukocyte on in 11:00 AM s in source Blood by data Automated count Platelet 7.4 - fl Normal Jan 23 mean 10.4 inform2016 volume on in 11:00 AM [Entitic source [...] pg/mL High No Dec 23 tic informati 2017 6:30 peptide B on in AM source [...] No Dec 22 t [Volume 47.0 informati 2017 6:20 on in AM Fraction] source of [...] Normal No Dec 22 te mean informati 2017 6:20 corpuscul on in AM [...] - 9.3 % Normal No Dec 22 /100 informati 2017 6:20 leukocyte on in AM [...] 1.7 - 9.3 % Normal No Dec 212016 5:00 leukocyte on in PM s in source Blood by data Automated count Platelet 7.4 - fl Normal No Dec 21 mean 10.4 2016 5:00 volume on in PM [Entitic source volume] data in Blood by Automated count Platelets 142 - 424 K/mm3 Normal No Dec 212016 5:00 [#/volume on in PM ] in source Blood data Erythrocy 4.2 - 5.4 M/mm3 Normal No Dec 212016 5:00 [#/volume on in PM ] in source Amniotic data fluid Erythrocy 11.5 - % Normal No Dec 21 te 17.5 2016 5:00 distribut on in PM ion [...] 1.8 - 7.8 K/mm3 Normal No Dec 202016 [#/volume on [...] - 1.0 K/mm3 Normal No Dec 20 inform2016 [#/volume [...] data data Glucose NEG No No No Wil 17 [Mass/vol informati informati informati 2017 ume] in on in on in on in 11:20 AM Urine by source source source Test data data data strip Ketones NEGATIV NEG mg/dL No No Dec 20 E informa informa 2017 [Presen tion in tion in 11:20 ce] [...]
--- OUTSIDE RECORDS SUMMARY | 2017-04-04 16:00 | External Medical Summary Rpt ---
[...] [facility] AM [Mass/vol source ume] in data [address] [address] Serum 0 [place], [place] [id number] Supervisor [employer]: Tian Holt PhD, Phone: [phone] Iron and TIBC Observa Value Referen [...] Date tion ce etation Range COMMENTS TO MEMORY CARE DIRECTOR: PER [place] PROTOCOL Cholester < 200 mg/dL No No [...] Plasma LTS CALLED TO: TONYA.CLA 02/14/17 1812 [address],[place] nda> 0.5 IS CONSISTEN T WITH MYOCARDIA [...]
--- NOTE | 2017-04-04 17:09 | HISTORY AND PHYSICAL REPORT ---
Demographics: Admit date: 04/04/17 Chief complaint: Nausea PRIMARY DIAGNOSIS: GI BLEED,ANEMIA,LIGHTHEADEDNESS Allergies: Coded Allergies: No Known Allergies (03/13/17) History of present illness: History of present illness: 87-year-old female who [facility] the [facility] reported nausea with lightheadedness upon standing and feeling weak. The [facility] reported an episode of unresponsiveness and she was sent to the emergency department. Patient was awake by the time she reached the emergency department. Workup revealed anemia with a hemoglobin of 6.6 and patient has been admitted for transfusion. Patient reports dark stools over the last 3-4 days maybe even longer. Patient is currently on dual antiplatelet therapy due to underlying coronary artery disease and recent stent placement. Past medical history: Family HX Family Hx Insignificant No Diabetes No CAD Yes Hypertension Yes Hyperlipidemia Yes Cancer Yes TB No Immunization HX DT/Tetanus Unknown Flu 2016/2017 Pneumonia Received In Past General CAD? Yes Angina: Yes SD: Yes Hypertension? Yes Hyperlipidemia? Yes CHF? No DVT? No PE? No COPD? No Asthma? No Anemia? No GERD? No Gastric ulcers? No GI Bleed? No Hernia? No Thyroid Problems? No Hypothyroidism? No CVA? No Seizures? No Diabetes? No Renal Insuffiency? No UTI? No Stones? No BPH? No GB Disease: No Nephritic Syndrome? No Asplenia? No Hepatitis? No Sickle Cell Disease? No Arthritis? No Migraines? No Cataracts? No Glaucoma? No MRSA? No HIV? No TB? No Anxiety? No Depression? No Cancer? No More? Yes Additional hx: TREMORS, PARKISONS Past Surgical HX Previous Surgery?Y Coronary Artery Bypass TUBAL LIGATION HYSTERECTOMY CARDIAC STENTS Current home meds: Active Scripts NITROGLYCERIN (Nitrostat) 0.4 MG SL [id number] PRN CHEST PAIN #30 TAB Prov: 12/23/16 Oxazepam 10 MG PO BID #60 CAPSULE Ref 1 Prov: 12/23/16 Carvedilol (Carvedilol 12.5MG) 12.5 MG PO BID #60 TAB Ref 11 Prov: 02/18/17 Aspirin (Aspirin EC 81MG) 81 MG PO DAILY #30 TABLET Ref 11 Prov: 02/18/17 DIGOXIN (Digox) 0.125 MG PO DAILY #30 TAB Ref 11 Prov: 02/18/17 Ticagrelor (Brilinta) 90 MG PO BID #60 TAB Ref 11 Prov: 02/18/17 Gabapentin (Neurontin 300MG) 300 MG PO QHS #30 CAP Prov: 03/15/17 Reported Medications POTASSIUM CHL (Potassium Chloride) 40 MEQ PO BID CHOLECALCIFEROL (VITAMIN D3) (Vitamin D-3) 2,000 IU PO DAILY Gabapentin (Gabapentin 300MG) 300 MG PO DAILY ATORVASTATIN CALCIUM (ATORVASTATIN 20MG) 20 MG PO QHS Trazodone Hcl (Trazodone HCl) 150 MG PO QHS Levothyroxine Sodium 0.2 MG PO DAILY Furosemide (Furosemide 40MG) 40 MG PO DAILY Social Hx: Smoking HX Tobacco No Packs/day N/A Alcohol Alcohol: No Hx of Drug Use Drug Use? No Patien't marital status is Patient's support system is good Review of systems: Constitutional weakness. Respiratory No: shortness of breath, SOB at rest. Cardiovascular No chest pain, No palpitations Gastrointestinal/Abdominal No abdominal pain, nausea, poor appetite Genitourinary no symptoms reported. Musculoskeletal no symptoms reported. Neurological Yes: no symptoms reported. Exam: Lab data for last 24 hours: Laboratory Tests 04/04/17 1419: Lipase 220 04/04/17 1419: Sodium 140, Potassium 3.8, Chloride 106, Carbon Dioxide 24, BUN 66 H, Creatinine 1.6 H, Estimated Creat Clear 32 L, Estimated GFR (MDRD) 30 L, Glucose 137 H, Calcium 8.8, Total Bilirubin 0.3, AST 10 L, ALT 7 L, Alkaline Phosphatase 90, Creatine Kinase 17 L, CK-MB (CK-2) Rel Index 10.6 *H, CK and CKMB Interp 1.8, Troponin I 0.04, Total Protein 6.0 L, Albumin 2.4 L, Globulin 3.6 H, Albumin/Globulin Ratio 0.7 L, WBC 13.9 H, RBC 2.28 L, Hgb 6.2 *L, Hct 20.2 *L, MCV 88.5, RDW 15.6, Plt Count 513 H, MPV 7.3 L, Gran % 84.7 H, Gran # 11.8 H, Lymphocytes % 9.6 L, Monocytes % 5.4, Eosinophils % 0.1, Basophils % 0.2, Lymphocytes # 1.3, Monocytes # 0.8, Eosinophils # 0.0, Basophils # 0.0, PUBS MCHC 30.8 L, MCH 27.2 04/04/17 1414: PT 11.5, INR 1.06, APTT 19.4 L 04/04/17 1405: Influenza Type A Ag NOT DETECTED, Influenza Type B Ag NOT DETECTED Admission vital signs: 1ST Vital Signs Result Date Time Pulse Ox 97 04/04 132 B/P 98/47 04/04 1329 Temp 97.9 04/04 1329 Pulse 78 04/04 1329 Resp 18 04/04 1329 Exam General appearance: alert, awake, no acute distress Eyes: anicteric ENT: mucous membranes moist Neck: supple Cardiovascular: regular rate & rhythm Respiratory: clear to auscultation ABD: soft, no tenderness Extremities: moves all Neuro: alert, clam shucker II-XII nml as tested, no deficit, normal mood/affect Plan: Problem List 1. GI bleed Plan: Patient has been admitted for upper gastrointestinal bleed. Plan for anemia workup and upper gastrointestinal in the morning. Patient be transfused 2 units of packed red blood cells this evening. Home medications have been ordered except for her aspirin and Brillinta
--- NOTE | 2017-04-04 17:09 | HISTORY AND PHYSICAL REPORT ---
Demographics: Admit date: 04/04/17 Chief complaint: Nausea PRIMARY DIAGNOSIS: GI BLEED,ANEMIA,LIGHTHEADEDNESS Allergies: Coded Allergies: No Known Allergies (03/13/17) History of present illness: History of present illness: 87-year-old female who over the last 3-4 days at the residential where she resides reported nausea with lightheadedness upon standing and feeling weak. The residential reported an episode of unresponsiveness and she was sent to the emergency department. Patient was awake by the time she reached the emergency department. Workup revealed anemia with a hemoglobin of 6.6 and patient has been admitted for transfusion. Patient reports dark stools over the last 3-4 days maybe even longer. Patient is currently on dual antiplatelet therapy due to underlying coronary artery disease and recent stent placement. Past medical history: Family HX Family Hx Insignificant No Diabetes No CAD Yes Hypertension Yes Hyperlipidemia Yes Cancer Yes TB No Immunization HX DT/Tetanus Unknown Flu 2016/2017 Pneumonia Received In Past General CAD? Yes Angina: Yes HI: Yes Hypertension? Yes Hyperlipidemia? Yes CHF? No DVT? No PE? No COPD? No Asthma? No Anemia? No GERD? No Gastric ulcers? No GI Bleed? No Hernia? No Thyroid Problems? No Hypothyroidism? No CVA? No Seizures? No Diabetes? No Renal Insuffiency? No UTI? No Stones? No BPH? No GB Disease: No Nephritic Syndrome? No Asplenia? No Hepatitis? No Sickle Cell Disease? No Arthritis? No Migraines? No Cataracts? No Glaucoma? No MRSA? No HIV? No TB? No Anxiety? No Depression? No Cancer? No More? Yes Additional hx: TREMORS, PARKISONS Past Surgical HX Previous Surgery?Y Coronary Artery Bypass TUBAL LIGATION HYSTERECTOMY CARDIAC STENTS Current home meds: Active Scripts NITROGLYCERIN (Nitrostat) 0.4 MG SL [id number] PRN CHEST PAIN #30 TAB Prov: 12/23/16 Oxazepam 10 MG PO BID #60 CAPSULE Ref 1 Prov: 12/23/16 Carvedilol (Carvedilol 12.5MG) 12.5 MG PO BID #60 TAB Ref 11 Prov: 02/18/17 Aspirin (Aspirin EC 81MG) 81 MG PO DAILY #30 TABLET Ref 11 Prov: 02/18/17 DIGOXIN (Digox) 0.125 MG PO DAILY #30 TAB Ref 11 Prov: 02/18/17 Ticagrelor (Brilinta) 90 MG PO BID #60 TAB Ref 11 Prov: 02/18/17 Gabapentin (Neurontin 300MG) 300 MG PO QHS #30 CAP Prov: 03/15/17 Reported Medications POTASSIUM CHL (Potassium Chloride) 40 MEQ PO BID CHOLECALCIFEROL (VITAMIN D3) (Vitamin D-3) 2,000 IU PO DAILY Gabapentin (Gabapentin 300MG) 300 MG PO DAILY ATORVASTATIN CALCIUM (ATORVASTATIN 20MG) 20 MG PO QHS Trazodone Hcl (Trazodone HCl) 150 MG PO QHS Levothyroxine Sodium 0.2 MG PO DAILY Furosemide (Furosemide 40MG) 40 MG PO DAILY Social Hx: Smoking HX Tobacco No Packs/day N/A Alcohol Alcohol: No Hx of Drug Use Drug Use? No Patien't marital status is Patient's support system is good Review of systems: Constitutional weakness. Respiratory No: shortness of breath, SOB at rest. Cardiovascular No chest pain, No palpitations Gastrointestinal/Abdominal No abdominal pain, nausea, poor appetite Genitourinary no symptoms reported. Musculoskeletal no symptoms reported. Neurological Yes: no symptoms reported. Exam: Lab data for last 24 hours: Laboratory Tests 04/04/17 1419: Lipase 220 04/04/17 1419: Sodium 140, Potassium 3.8, Chloride 106, Carbon Dioxide 24, BUN 66 H, Creatinine 1.6 H, Estimated Creat Clear 32 L, Estimated GFR (MDRD) 30 L, Glucose 137 H, Calcium 8.8, Total Bilirubin 0.3, AST 10 L, ALT 7 L, Alkaline Phosphatase 90, Creatine Kinase 17 L, CK-MB (CK-2) Rel Index 10.6 *H, CK and CKMB Interp 1.8, Troponin I 0.04, Total Protein 6.0 L, Albumin 2.4 L, Globulin 3.6 H, Albumin/Globulin Ratio 0.7 L, WBC 13.9 H, RBC 2.28 L, Hgb 6.2 *L, Hct 20.2 *L, MCV 88.5, RDW 15.6, Plt Count 513 H, MPV 7.3 L, Gran % 84.7 H, Gran # 11.8 H, Lymphocytes % 9.6 L, Monocytes % 5.4, Eosinophils % 0.1, Basophils % 0.2, Lymphocytes # 1.3, Monocytes # 0.8, Eosinophils # 0.0, Basophils # 0.0, PUBS MCHC 30.8 L, MCH 27.2 04/04/17 1414: PT 11.5, INR 1.06, APTT 19.4 L 04/04/17 1405: Influenza Type A Ag NOT DETECTED, Influenza Type B Ag NOT DETECTED Admission vital signs: 1ST Vital Signs Result Date Time Pulse Ox 97 04/04 132 B/P 98/47 04/04 1329 Temp 97.9 04/04 1329 Pulse 78 04/04 1329 Resp 18 04/04 1329 Exam General appearance: alert, awake, no acute distress Eyes: anicteric ENT: mucous membranes moist Neck: supple Cardiovascular: regular rate & rhythm Respiratory: clear to auscultation ABD: soft, no tenderness Extremities: moves all 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 GI bleed Plan: Patient has been admitted for upper gastrointestinal bleed. Plan for anemia workup and upper gastrointestinal in the morning. Patient be transfused 2 units of packed red blood cells this evening. Home medications have been ordered except for her aspirin and Brillinta
--- NOTE | 2017-04-04 17:24 | CONSULT NOTE ---
Standard Demographics Patient Demo Date of Consultation: 04/04/17 Referring Provider: Alban Saldivar MD Reason for Consultation: ANEMIA, GASTROINTESTINAL BLEED PRIMARY DIAGNOSIS: GI BLEED,ANEMIA,LIGHTHEADEDNESS Allergies: Coded Allergies: No Known Allergies (03/13/17) History of Present Illness Chief Complaint: Weakness History of Present Illness: Patient is an 87-year-old white female. She has a history of significant coronary artery disease and ischemic cardiomyopathy. Relatively recently she was hospitalized with non-STEMI on 02/14/17. She also had a recent hospitalization after falling and sustaining several metatarsal fractures. She presented to the emergency department this afternoon with a several day history of weakness and dizziness. She's had some nausea. She was brought to the emergency department after an episode of decreased responsiveness. She was found to have a hemoglobin of 6 and a hematocrit of 20. She has a historY consistent with melena. She was admitted for inpatient management and transfusion. Past Medical History Reports: CAD, congestive heart failure, hypertension, renal insufficiency. Denies: peptic ulcer disease. Surgical History Previous Surgery?Y Coronary Artery Bypass TUBAL LIGATION HYSTERECTOMY CARDIAC STENTS Allergies Coded Allergies: No Known Allergies (03/13/17) Medications: Active Scripts NITROGLYCERIN (Nitrostat) 0.4 MG SL [id number] PRN CHEST PAIN #30 TAB Prov: 12/23/16 Oxazepam 10 MG PO BID #60 CAPSULE Ref 1 Prov: 12/23/16 Carvedilol (Carvedilol 12.5MG) 12.5 MG PO BID #60 TAB Ref 11 Prov: 02/18/17 Aspirin (Aspirin EC 81MG) 81 MG PO DAILY #30 TABLET Ref 11 Prov: 02/18/17 DIGOXIN (Digox) 0.125 MG PO DAILY #30 TAB Ref 11 Prov: 02/18/17 Ticagrelor (Brilinta) 90 MG PO BID #60 TAB Ref 11 Prov: 02/18/17 Gabapentin (Neurontin 300MG) 300 MG PO QHS #30 CAP Prov: 03/15/17 Reported Medications POTASSIUM CHL (Potassium Chloride) 40 MEQ PO BID CHOLECALCIFEROL (VITAMIN D3) (Vitamin D-3) 2,000 IU PO DAILY Gabapentin (Gabapentin 300MG) 300 MG PO DAILY ATORVASTATIN CALCIUM (ATORVASTATIN 20MG) 20 MG PO QHS Trazodone Hcl (Trazodone HCl) 150 MG PO QHS Levothyroxine Sodium 0.2 MG PO DAILY Furosemide (Furosemide 40MG) 40 MG PO DAILY Smoking Hx Tobacco: No Smoker: Never Smoker Type: N/A Packs/day: N/A Are you/the child exposed to second-hand smoke: No Alcohol Alcohol: No Hx of Drug Use Drug Use? No Review of Systems Constitutional Positive for: fatigue, weak. Skin No: bruising. Immune/allergy No: anaphalaxis. Eyes No: vision loss. ENT No: hearing loss. Respiratory No: shortness of air. Cardiovascular No: chest pain. GI Positive for: nausea. Neurological Positive for: change in LOC, confusion, dizziness. Physical Exam VS/I&O Vital Signs Date Time Temp Pulse Resp B/P Pulse O2 O2 Flow FiO2 Ox Delivery Rate 04/04 1703 60 04/04 1703 96 ROOM AIR 04/04 1647 60 16 102/53 96 04/04 1643 98 18 121/73 96 04/04 1537 80 16 116/57 96 04/04 1433 72 16 109/58 97 04/04 1329 97.9 78 18 98/47 97 Exam General appearance no acute distress Respiratory decreased breath sounds Cardiovascular normal heart sounds Plan Plan: Patient is to undergo a transfusion tonight. Plan for proton pump inhibitors. Patient has exquisite comorbidities and is at elevated risk of any procedure under sedation. at 1724
[2017-04-04 17:34] LABS: ANTIHUMAN GLOB CROSSMATCH COMPAT
[2017-04-04 17:35] LABS: ABO BLOOD TYPE A; ANTIHUMAN GLOB CROSSMATCH COMPAT; RH BLOOD TYPE POSITIVE
--- NOTE | 2017-04-04 18:08 | RADIOLOGY REPORT PS360 ---
CHEST-PORTABLE Ordering physician: Alban Saldivar MD Age: 87 years Female INDICATION: chest symptomslightheaded PROCEDURE: CHEST-PORTABLE FINDINGS: Prior chest no 02/17/2017 Median sternotomy heart upper normal in size. Tortuous aorta with calcified aortic knob. Lungs are clear with no active disease. No pleural effusion or pneumothorax. Mild apical pleural scarring on right and left stable since prior studies chest wall intact Lungs well expanded. Normal pulmonary vascularity IMPRESSION ----- .. stable chest with nothing definitely acute.
[2017-04-05] VITALS (7 sets, daily range): BP systolic 93–118; BP diastolic 43–62
--- NOTE | 2017-04-05 07:11 | ACUTE CARE PROGRESS NOTE (QUA) ---
Progress Notes Subjective Date 04/05/17 Time 0709 Note Patient has no complaints this morning. She admits overall she feels better. She has completed her blood transfusion. She denies nausea this morning. Patient is nothing by mouth for an upper gastrointestinal. Patient is awake and alert. Vital signs reviewed. Lungs are clear. Heart has a regular rate and rhythm. Abdomen is soft and nontender. Continue intravenous PPI. Upper gastrointestinal today. Should significant lesion be identified patient with likely need EGD. Objective Findings Last VS-Temp:97.7 B/P:101/53 Pulse:80 Resp:16 SaO2:95 ROOM AIR Last weight lbs:136 oz:5 K.831 Method:Bed Scales Laboratory Tests 04/04/17 2215: Misc Test Units BLOOD UNIT RELEASE 04/04/17 1742: Mis Test Units BLOOD UNIT RELEASE 04/04/17 1551: Antibody Screen NEGATIVE, Miscellaneous Test POSITIVE 04/04/17 1419: Lipase 220 04/04/17 1419: Ferritin 39, Retic Count 4.9 H 04/04/17 1419: Sodium 140, Potassium 3.8, Chloride 106, Carbon Dioxide 24, BUN 66 H, Creatinine 1.6 H, Estimated Creat Clear 32 L, Estimated GFR (MDRD) 30 L, Glucose 137 H, Calcium 8.8, Total Bilirubin 0.3, AST 10 L, ALT 7 L, Alkaline Phosphatase 90, Creatine Kinase 17 L, CK-MB (CK-2) Rel Index 10.6 *H, CK and CKMB Interp 1.8, Troponin I 0.04, Total Protein 6.0 L, Albumin 2.4 L, Globulin 3.6 H, Albumin/Globulin Ratio 0.7 L, WBC 13.9 H, RBC 2.28 L, Hgb 6.2 *L, Hct 20.2 *L, MCV 88.5, RDW 15.6, Plt Count 513 H, MPV 7.3 L, Gran % 84.7 H, Gran # 11.8 H, Lymphocytes % 9.6 L, Monocytes % 5.4, Eosinophils % 0.1, Basophils % 0.2, Lymphocytes # 1.3, Monocytes # 0.8, Eosinophils # 0.0, Basophils # 0.0, PUBS MCHC 30.8 L, MCH 27.2 04/04/17 1414: PT 11.5, INR 1.06, APTT 19.4 L 04/04/17 1405: Influenza Type A Ag NOT DETECTED, Influenza Type B Ag NOT DETECTED Assessment/Plan Problem List 1. GI bleed Qualifiers: GI bleed type/associated pathology: unspecified gastrointestinal hemorrhage type Qualified Code: K92.2 - Gastrointestinal hemorrhage, unspecified 2. Anemia of chronic disease 3. Kidney disease, chronic, stage IV (GFR 15-29 ml/min) 4. Foot fracture, left 5. Ischemic cardiomyopathy 6. Systolic CHF with reduced left ventricular function, NYHA class 3 Patient condition Stable This inpt stay is expected to cross 2 MNs from start of care Yes at 0711
--- NOTE | 2017-04-05 07:40 | PHARMACY CLINIC NOTE ---
Patient Demographics Patient Demographics Admission date: 04/04/17 Date: 04/05/17 Time: 0740 Allergies Coded Allergies: No Known Allergies (03/13/17) HEIGHT- FT: 5 IN: 2.00 K.831 VTE General Information Labs: Laboratory Tests 04/04 04/04 1419 1414 Coagulation PT (9.4 - 11.8 SECONDS) 11.5 INR (0.9 - 1.1) 1.06 APTT (23.6 - 34.0 SECONDS) 19.4 L Hematology Hgb (12.2 - 16.2 g/dL) 6.2 *L Hct (37.0 - 47.0 %) 20.2 *L Plt Count (142 - 424 K/mm3) 513 H Disclaimer The following section includes nursing documentation that has been pulled in for pharmacy review. Patient's VTE score: 4 Patient's VTE Risk: LOW RISK Clinical trial participant? No VTE prophylaxis [id number] VTE prophylaxis ordered? Yes Type of prophylaxis/treatment: NIRAV at 0740
[2017-04-05 08:32] LABS: LYMPH # 1.7 K/mm3 (0.7-4.5); LYMPH % 10.9 % (10-50.0)
[2017-04-05 08:40] LABS: HEMOGLOBIN 8.9 g/dL (12.2-16.2)
[2017-04-05 10:18] LABS: CORRECTED WBC 14.7 K/mm3; NEUTROPHILS 82 % (42-76)
--- NOTE | 2017-04-05 11:25 | RADIOLOGY REPORT PS360 ---
UGI SERIES SINGLE CONTRAST CLINICAL INDICATION: upper gi bleed ORDERING PHYSICIAN: Alban Saldivar MD PATIENT AGE: 87 years Fluoroscopy time: 1 minute and 3 seconds COMPARISON: None FINDINGS: The esophagus has an unremarkable appearance without evidence of hernia or mass. The stomach and duodenum are also unremarkable. No ulcer or mass is evident. There was a moderate to severe amount of gastroesophageal reflux. Incidental note is made of multiple gallstones. IMPRESSION: 1. Gastroesophageal reflux. 2. Cholelithiasis. 3. Otherwise negative upper GI
--- NOTE | 2017-04-05 11:27 | SURGEON PROGRESS NOTE ---
Subjective data Subjective data: ANDREA MILES is a 87 F .Patient denies complaint of nausea and vomitting.She reports her last pain level as 0 on a 0-10 pain scale. No issues. patient transfused. Assessment findings Assessment Exam General appearance: normal appearance, alert ABD: soft Patient plan Plan: IV fluids Additional data: Patient has undergone UGIS. Results pending. If relatively unremarkable plan to treat empirically with PPIs. If large ulcer may need EGD to evaluate for possible recurrent bleeding. at 1121
--- NOTE | 2017-04-05 11:53 | CONSULT NOTE-PODIATRY ---
Podiatry Initial Visit H&P Date of Visit 04/05/17 Presenting Problem 87 F referred by Presented today with F/U L FOOT Length of time pt has had problem: This problem was the result of an accident? Work related? Source patient Allergies Coded Allergies: No Known Allergies (03/13/17) Home Medications Active Scripts NITROGLYCERIN (Nitrostat) 0.4 MG SL [id number] PRN CHEST PAIN #30 TAB Prov: 12/23/16 Oxazepam 10 MG PO BID #60 CAPSULE Ref 1 Prov: 12/23/16 Carvedilol (Carvedilol 12.5MG) 12.5 MG PO BID #60 TAB Ref 11 Prov: 02/18/17 Aspirin (Aspirin EC 81MG) 81 MG PO DAILY #30 TABLET Ref 11 Prov: 02/18/17 DIGOXIN (Digox) 0.125 MG PO DAILY #30 TAB Ref 11 Prov: 02/18/17 Ticagrelor (Brilinta) 90 MG PO BID #60 TAB Ref 11 Prov: 02/18/17 Gabapentin (Neurontin 300MG) 300 MG PO QHS #30 CAP Prov: 03/15/17 Reported Medications POTASSIUM CHL (Potassium Chloride) 40 MEQ PO BID CHOLECALCIFEROL (VITAMIN D3) (Vitamin D-3) 2,000 IU PO DAILY Gabapentin (Gabapentin 300MG) 300 MG PO DAILY ATORVASTATIN CALCIUM (ATORVASTATIN 20MG) 20 MG PO QHS Trazodone Hcl (Trazodone HCl) 150 MG PO QHS Levothyroxine Sodium 0.2 MG PO DAILY Furosemide (Furosemide 40MG) 40 MG PO DAILY PMH General Medical HX Hypertension Yes CVA No Seizures No TB No COPD No Asthma No Diabetes No Angina Yes [place] Yes Hyperlipidemia Yes Urinary No Cancer No Rheumatic H.D. No Ulcers No MRSA No GB Disease No Additional hx TREMORS, PARKISONS Surgical HX Previous Surgery?Y Coronary Artery Bypass TUBAL LIGATION HYSTERECTOMY CARDIAC STENTS Immunization HX DT/Tetanus Unknown Flu Pneumonia Received In Past TB Test in last year No Social HX Marital Status Occupation Smoker Never Smoker Alcohol Use Drugs N Does the patient participate in any fitness routines? At what level? Frequency? Family HX Diabetes No CAD Yes Hypertension Yes Hyperlipidemia Yes Cancer Yes TB No ROS All Other Systems Reviewed/Neg for visit Constitutional No: chills, fatigue. Musculoskeletal No: extremity pain, extremity swelling (LEFT IMPROVED). Skin Positive for: bruising. GI Positive for: abdomen, nausea. Assessment/Plan VS/Wt/Labs/Orders/Meds Weight -LB:136 OZ:5 K.831 Method:Bed Scales Height -FT:5 IN:2 CM:157.48 BMI:24.9 Vital Signs Date Time Temp Pulse Resp B/P Pulse O2 O2 Flow FiO2 Ox Delivery Rate 04/05 813 98.3 79 22 98/45 95 ROOM AIR 04/05 0743 97.7 80 16 101/53 95 04/05 0351 97.7 80 16 101/53 95 ROOM AIR 04/05 0155 98.1 77 16 100/62 04/05 0055 97.6 75 18 96/52 04/05 0030 98.0 75 16 118/59 04/04 2330 98.8 81 16 103/51 04/04 2315 98.8 81 16 103/51 04/04 2300 98.7 75 16 98/45 04/04 2300 97.8 80 16 94/52 04/04 2245 98.3 78 18 112/58 04/04 2240 97.4 81 18 126/62 04/04 2235 98.0 84 18 101/56 04/04 2230 98.1 83 16 118/53 04/04 2145 98.0 78 16 112/60 04/04 2045 98.3 85 18 117/64 04/04 2000 98.1 77 16 100/62 96 04/04 1955 97.8 82 16 106/75 04/04 1855 97.7 79 16 96/61 04/04 1840 97.8 82 16 97/37 04/04 1825 98.0 77 16 83/35 04/04 1810 98.1 81 16 82/49 04/04 1805 97.8 76 16 83/47 04/04 1800 98.0 63 16 89/38 04/04 1755 98.1 64 16 95/44 04/04 1727 97.3 74 16 108/57 96 ROOM AIR 04/04 1703 60 04/04 1703 97.3 74 16 108/57 04/04 1703 96 ROOM AIR 04/04 1647 60 16 102/53 96 04/04 1643 98 18 121/73 96 04/04 1537 80 16 116/57 96 04/04 1433 72 16 109/58 97 04/04 1329 97.9 78 18 98/47 97 Vital Signs Date Time Temp Pulse Resp B/P Pulse O2 O2 Flow FiO2 Ox Delivery Rate 04/05 0813 98.3 79 22 98/45 95 ROOM AIR 04/05 0743 97.7 80 16 101/53 95 04/05 0351 97.7 80 16 101/53 95 ROOM AIR 04/05 0155 98.1 77 16 100/62 04/05 0055 97.6 75 18 96/52 04/05 0030 98.0 75 16 118/59 04/04 2330 98.8 81 16 103/51 04/04 2315 98.8 81 16 103/51 04/04 2300 98.7 75 16 98/45 04/04 2300 97.8 80 16 94/52 04/04 2245 98.3 78 18 112/58 04/04 2240 97.4 81 18 126/62 04/04 2235 98.0 84 18 101/56 04/04 2230 98.1 83 16 118/53 04/04 2145 98.0 78 16 112/60 04/04 2045 98.3 85 18 117/64 04/04 2000 98.1 77 16 100/62 96 04/04 1955 97.8 82 16 106/75 04/04 1855 97.7 79 16 96/61 04/04 1840 97.8 82 16 97/37 04/04 1825 98.0 77 16 83/35 04/04 1810 98.1 81 16 82/49 04/04 1805 97.8 76 16 83/47 04/04 1800 98.0 63 16 89/38 04/04 1755 98.1 64 16 95/44 04/04 1727 97.3 74 16 108/57 96 ROOM AIR 04/04 1703 60 04/04 1703 97.3 74 16 108/57 04/04 1703 96 ROOM AIR 04/04 1647 60 16 102/53 96 04/04 1643 98 18 121/73 96 04/04 1537 80 16 116/57 96 04/04 1433 72 16 109/58 97 04/04 1329 97.9 78 18 98/47 97 Laboratory Tests 04/05/17 0807: Sodium 145, Potassium 4.4, Chloride 113 H, Carbon Dioxide 24, BUN 56 H, Creatinine 1.6 H, Estimated Creat Clear 24 L, Estimated GFR (MDRD) 30 L, Glucose 95, Calcium 8.7 04/05/17 0800: Peripheral Blood Smear Pending 04/05/17 0800: WBC 15.3 H, Corrected WBC (auto) 14.7, RBC 3.06 L, Hgb 8.9 L, Hct 27.8 L, MCV 90.9, RDW 14.9, Plt Count 389, MPV 7.4, Gran % 82.6 H, Gran # 12.6 H, Total Counted 100, Lymphocytes % 10.9, Monocytes % 5.9, Eosinophils % 0.3, Basophils % 0.3, Neutrophils 82 H, Lymphocytes (Manual) 13, Lymphocytes # 1.7, Monocytes (Manual) 5, Monocytes # 0.9, Eosinophils # 0.1, Basophils # 0.0, Nucleated RBCs 4 H, Platelet Estimate NORMAL, Hypochromasia 1+, Ovalocytes 1+, Acanthocytes (Spur) 1+, PUBS MCHC 32.2, MCH 29.2 04/04/17 2215: Misc Test Units BLOOD UNIT RELEASE 04/04/17 1742: Misc Test Units BLOOD UNIT RELEASE 04/04/17 1551: Antibody Screen NEGATIVE, Miscellaneous Test POSITIVE 04/04/17 1419: Lipase 220 04/04/17 1419: Iron (send out) Pending, TIBC Pending, % Saturation Pending, Unsaturated IBC Pending, Vitamin B12 Pending 04/04/17 1419: Ferritin 39, Retic Count 4.9 H 04/04/17 1419: Sodium 140, Potassium 3.8, Chloride 106, Carbon Dioxide 24, BUN 66 H, Creatinine 1.6 H, Estimated Creat Clear 32 L, Estimated GFR (MDRD) 30 L, Glucose 137 H, Calcium 8.8, Total Bilirubin 0.3, AST 10 L, ALT 7 L, Alkaline Phosphatase 90, Creatine Kinase 17 L, CK-MB (CK-2) Rel Index 10.6 *H, CK and CKMB Interp 1.8, Troponin I 0.04, Total Protein 6.0 L, Albumin 2.4 L, Globulin 3.6 H, Albumin/Globulin Ratio 0.7 L, WBC 13.9 H, RBC 2.28 L, Hgb 6.2 *L, Hct 20.2 *L, MCV 88.5, RDW 15.6, Plt Count 513 H, MPV 7.3 L, Gran % 84.7 H, Gran # 11.8 H, Lymphocytes % 9.6 L, Monocytes % 5.4, Eosinophils % 0.1, Basophils % 0.2, Lymphocytes # 1.3, Monocytes # 0.8, Eosinophils # 0.0, Basophils # 0.0, PUBS MCHC 30.8 L, MCH 27.2 04/04/17 1414: PT 11.5, INR 1.06, APTT 19.4 L 04/04/17 1405: Influenza Type A Ag NOT DETECTED, Influenza Type B Ag NOT DETECTED Current Medication Orders Sig/Xu Start time Last Medication Dose Route Stop Time Status Admin Barium Sulfate 355 ML ONCE ONE 04/05 1030 DC 04/05 PO 04/05 1031 1026 Digoxin 0.125 MG DAILY 04/05 900 AC 04/05 PO 0859 Furosemide 40 MG DAILY 04/05 900 AC 04/05 PO 0857 Gabapentin 300 MG DAILY 04/05 900 AC 04/05 PO 0857 Oxazepam 0 .STK-MED ONE 04/05 08 DC PO Sodium Chloride 250 ML .STK-MED ONE 04/04 2104 DC IV Atorvastatin Calcium 20 MG QHS 04/04 2100 AC 04/04 PO 2221 Carvedilol 12.5 MG BID 04/04 PO 0857 Gabapentin 300 MG QHS 04/04 2100 AC 04/04 PO 2221 Oxazepam 10 MG BID 04/04 2100 AC 04/05 PO 0857 Pantoprazole Sodium 40 MG BID 04/04 2100 AC 04/05 IV 0855 Potassium Chloride 40 MEQ BID 04/04 2100 AC 04/05 PO 0855 Sodium Chloride 250 ML .STK-MED ONE 04/04 1734 DC IV Sodium Chloride 10 ML PRN PRN 04/04 171 AC IV Trazodone HCl 150 MG QHSP PRN 04/04 1715 AC PO Influenza Virus 0.5 ML PRN PRN 04/04 1645 AC Vaccine Quadrival IM Ondansetron HCl 4 MG Q6HP PRN 04/04 164 AC 04/04 IV 2116 Sodium Chloride 1,000 ML .Q20H 04/04 1645 AC 04/05 IV 0102 Sodium Chloride 10 ML PRN PRN 04/04 1645 AC IV Pantoprazole Sodium 0 .STK-MED ONE 04/04 1552 DC IV Pantoprazole Sodium 40 MG ONCE ONE 04/04 1530 DC 04/04 IV 04/04 1531 1556 Sodium Chloride 10 ML ONCE ONE 04/04 1530 DC IV 04/04 1531 Ondansetron HCl 0 .STK-MED ONE 04/04 1403 DC .ROUTE Sodium Chloride 1,000 ML .STK-MED ONE 04/04 1403 DC IV Ondansetron HCl 4 MG ONCE ONE 04/04 1400 DC 04/04 IV 04/04 1401 1410 Sodium Chloride 1,000 ML .Q1H1M 04/04 1400 DC 04/04 IV 04/04 1500 1410 Sodium Chloride 10 ML PRN PRN 04/04 1400 AC IV 04/05 1350 Sodium Chloride 10 ML PRN PRN 04/04 1345 AC IV 04/05 1337 Orders Procedure Date/time Status DIET-NOTHING BY MOUTH 04/05 B Active DIFFERENTIAL-WBC 04/05 0800 Complete CBC WITH AUTO DIFF 04/05 0600 Complete BASIC METABOLIC PROFILE 04/05 0600 Complete POM NURSE NIRAV SAMUELS ORDER 04/05 UNK Active DIET-CLEAR LIQUID 04/04 D Complete AA HELP AFTER D/C QUERY RESP 04/04 1819 Active ADMITTED PT IS ACTUALLY IN BED 04/04 1729 Active Decision to admit 04/04 1557 Active CROSSMATCH 04/04 1551 Complete BLOOD TRANSFUSION ORDER 04/04 1527 Active PARTIAL THROMBOPLASTIN TIME 04/04 1522 Complete PROTHROMBIN TIME 04/04 1522 Complete TYPE FOR CROSSMATCH 04/04 1520 Complete INFLUENZA A&B ANTIGENS 04/04 1353 Complete ORTHOSTATIC B/P 04/04 1352 Active URINALYSIS/COMPLETE 04/04 1351 Active LIPASE 04/04 1351 Complete 12 LEAD EKG-STEFANIE (INITIAL) 04/04 1339 Active ELECTROCARDIOGRAM REQUEST 04/04 1339 Active IV SALINE LOCK 04/04 1337 Active CBC WITH AUTO DIFF 04/04 1337 Complete CARDIAC ENZYMES 04/04 1337 Complete CHEM 12 PROFILE 04/04 1337 Complete BLOOD BANK REQUEST FOR INSPECTOR PLUG SEAM 04/04 UNK Complete BLOOD BANK REQUEST FOR INSPECTOR PLUG SEAM 04/04 UNK Active ADMIT PATIENT 04/04 UNK Active PULSE OXIMETRY REQUEST 04/04 UNK Active VITAL SIGNS 04/04 UNK Active IV SALINE LOCK 04/04 UNK Active RECORD I & O 04/04 UNK Active CODE STATUS 04/04 UNK Active PATIENT ACTIVITY ORDER 04/04 UNK Active STOOL OCCULT BLOOD 04/04 UNK Active RETICULOCYTE COUNT 04/04 UNK Complete FERRITIN 04/04 UNK Complete IRON & TIBC 04/04 UNK Active VITAMIN B12 04/04 UNK Active [facility] PHYS CONSULT 04/04 UNK Active Foot Specific Exam Weight bearing Full Comment Vascular: DP/PT pedal pulses 1+ palpable, positive pedal hair growth, CFT wnl, skin temp warm Dermatologic: Left anterior distal david abrasion noted with no signs of infection, toenails wnl, no inter-digital macerations, bruising and was discolorations noted to bilateral upper and lower extremities Neurologic: light touch protective sensation intact, no focal deficits, normal muscle mass Musculoskeletal: muscle strength wnl b/l, decreased arch height b/l, no pain noted with active or passive ROM of the ankle, STJ or midtarsal joints, gastroc- soleus equinus b/l, forefoot abduction, heel valgus No pain to palpation metatarsas. Mild nonpitting edema noted to the left forefoot. Exam Note Ms. Jeter is a pleasant 87-year-old female who was admitted via the ED yesterday, 04/04/17 for abdominal complaints, GI bleed, anemia. Patient had blood transfusion last night. Dr. Clayton, general surgery has been consulted and plans for colonoscopy. Patient was previously admitted 03/13/17 after she lost her balance and fell. She sustained distal metatarsal neck fractures 2 through 5 which were mildly laterally displaced. [facility] [place] and was there for rehab and physical therapy. She has been weightbearing in a fracture boot. Patient complains of no pain and minimal swelling to the left foot today. Physical Exam Findings General appearance: awake Extremities: warm Musculoskeletal: motor intact Skin: dry Neuro: normal mood/affect, speech clear Problem List 1. Foot fracture, left Impression/Procedure/Plan LEFT METATARSAL NECK FRACTURES 2-5: X-ray 3 views of the left foot, 04/05/17: Mild displaced fractures once again noted involving the distal aspect of the second, third, fourth, and fifth metatarsals. There is mild lateral displacement of the distal fracture fragments most apparent at the third metatarsal displaced laterally x 5 mm. There appears to be some early callus formation at least at the third metatarsal fracture. There is mild hallux valgus with bunion formation and pes planus. IMPRESSION: Mildly displaced fractures of the distal aspect of the second through fifth metatarsals. Patient had an appt with me today in the Specialty clinic 04/05/17 @ 1020. So patient was seen and evaluated on the floor instead. Family present at bedside. Discussed x-ray findings. Family admits to her walking at [place] without the boot. I would prefer that she be weightbearing in a fracture boot with a walker. We discussed conservative care. Recommended treatment: 1. Continue WB in short fracture boot to the left foot with walker 2. Tubi-release engineer, compression sock prn pain and swelling 3. Follow up with me out pt in Specialty clinic in 4 weeks for re-xray at [id number]
--- NOTE | 2017-04-05 13:35 | ACUTE CARE PROGRESS NOTE (QUA) ---
Progress note: - UGI Series relatively unremarkable. Particularly, no evidence of any ulcer. Plan to treat empirically with high dose PPIs. Will order H. Pylori serology and recommend treat if positive. At this point will refrain from endoscopic evaluation. If patient shows evidence of ongoing bleeding this may be necessary. at 0527
[2017-04-05 14:28] LABS: STOOL OCCULT BLOOD POSITIVE (NEG)
[2017-04-06] VITALS (13 sets, daily range): BP systolic 76–108; BP diastolic 32–53
--- NOTE | 2017-04-06 06:14 | ACUTE CARE PROGRESS NOTE (QUA) ---
Progress Notes Subjective Date 04/06/17 Time 0612 Note Patient has no complaints this morning. She denies nausea with full liquid diet. Upper gastrointestinal did not reveal any significant ulcer beds. Patient is awake. Abdomen is soft and nontender. Await H and H this morning. If H and H is stable patient will be restarted on her aspirin and Brillinta. If H and H continues to decline she will be transfused as needed and consideration will be given to endoscopy Objective Findings Last VS-Temp:98.3 B/P:99/37 Pulse:79 Resp:18 SaO2:100 ROOM AIR Last weight lbs:136 oz:5 K.831 Method:Bed Scales Laboratory Tests 04/05/17 1355: Stool Occult Blood POSITIVE 04/05/17 0807: Sodium 145, Potassium 4.4, Chloride 113 H, Carbon Dioxide 24, BUN 56 H, Creatinine 1.6 H, Estimated Creat Clear 24 L, Estimated GFR (MDRD) 30 L, Glucose 95, Calcium 8.7 04/05/17 0800: WBC 15.3 H, Corrected WBC (auto) 14.7, RBC 3.06 L, Hgb 8.9 L, Hct 27.8 L, MCV 90.9, RDW 14.9, Plt Count 389, MPV 7.4, Gran % 82.6 H, Gran # 12.6 H, Total Counted 100, Lymphocytes % 10.9, Monocytes % 5.9, Eosinophils % 0.3, Basophils % 0.3, Neutrophils 82 H, Lymphocytes (Manual) 13, Lymphocytes # 1.7, Monocytes (Manual) 5, Monocytes # 0.9, Eosinophils # 0.1, Basophils # 0.0, Nucleated RBCs 4 H, Platelet Estimate NORMAL, Hypochromasia 1+, Ovalocytes 1+, Acanthocytes (Spur) 1+, PUBS MCHC 32.2, MCH 29.2 Reviewed: medications, vital signs, lab results, consult note Assessment/Plan Problem List 1. GI bleed Qualifiers: GI bleed type/associated pathology: unspecified gastrointestinal hemorrhage type Qualified Code: K92.2 - Gastrointestinal hemorrhage, unspecified 2. Anemia of chronic disease 3. Kidney disease, chronic, stage IV (GFR 15-29 ml/min) 4. Foot fracture, left 5. Ischemic cardiomyopathy 6. Systolic CHF with reduced left ventricular function, NYHA class 3 Patient condition Stable Plan: continue current care This inpt stay is expected to cross 2 MNs from start of care Yes at 0613
[2017-04-06 07:47] LABS: LYMPH # 1.7 K/mm3 (0.7-4.5); LYMPH % 6.4 % (10-50.0)
[2017-04-06 08:06] LABS: HEMOGLOBIN 7.9 g/dL (12.2-16.2)
[2017-04-06 08:40] LABS: Iron 17 ug/dL (27-139); Iron Saturation 7 % (15-55); UIBC 237 ug/dL (118-369)
[2017-04-06 09:40] LABS: ANTIHUMAN GLOB CROSSMATCH COMPAT
[2017-04-06 09:42] LABS: Vitamin B12 519 pg/mL (211-946)
--- NOTE | 2017-04-06 10:47 | RADIOLOGY REPORT PS360 ---
CHEST-PORTABLE HISTORY: increasing WBC ORDERING PHYSICIAN: Alban Saldivar MD PATIENT AGE: 87 years COMPARISON: 04/04/2017 FINDINGS: Mild cardiomegaly. Prior CABG. No CHF. There is patchy density in the right apex which is developed since the previous exam. While this may be due to summation density from overlying rib and scapular border, developing infiltrate is also considered. No effusions. The remaining lungs are clear. No acute bony anomalies. IMPRESSION: Increasing density right apex which could be due to developing pneumonia or summation artifact. Upright PA and lateral chest may be of further value if patient can tolerate.
[2017-04-06 13:56] LABS: HEMOGLOBIN 9.3 g/dL (12.2-16.2)
--- NOTE | 2017-04-06 14:10 | SURGEON PROGRESS NOTE ---
Subjective data Subjective data: ANDREA MILES is a 87 F .Patient denies complaint of nausea and vomitting.She reports her last pain level as 0 on a 0-10 pain scale. Patient without complaints. Assessment findings Assessment Exam ABD: soft Patient plan Plan: PPIs Additional data: Slight decrease in H/H this morning. Received another unit with excellent response. Continue to monitor H/H. If continued decrease may need EGD. at 3101
[2017-04-07 04:30] VITALS: BP 99/51
[2017-04-07 06:51] LABS: HEMOGLOBIN 8.5 g/dL (12.2-16.2); LYMPH # 1.4 K/mm3 (0.7-4.5); LYMPH % 5.1 % (10-50.0)
[2017-04-07 07:20] VITALS: BP 104/40
--- NOTE | 2017-04-07 07:45 | ACUTE CARE PROGRESS NOTE (QUA) ---
Progress Notes Subjective Date 04/07/17 Time 0742 Note Patient received an additional unit of blood yesterday. Staff has reported that stools are less dark. Patient denies abdominal pain. White blood cell count has significantly elevated and blood culture was drawn yesterday. Patient had a low- grade fever prior to transfusion which was medicated with Tylenol. She admits to mild shortness of breath. Chest x-ray, which was a portable, suggested a RIGHT upper lobe infiltrate. Patient is awake and alert this morning. Lungs are clear to auscultation. Heart has regular rate and rhythm. Abdomen is soft. Repeat H and H this afternoon. Continue antibiotics until cultures return. Repeat chest x-ray today with a PA and lateral film. Patient does have a LEFT foot fracture but can bear weight long enough for a film. Patient is to get out of bed and into chair today Objective Findings Last VS-Temp:98.5 B/P:104/40 Pulse:79 Resp:16 SaO2:97 ROOM AIR Last weight lbs:136 oz:5 K.831 Method:Bed Scales Laboratory Tests 04/07/17 0620: Sodium 135 L, Potassium 3.9, Chloride 107, Carbon Dioxide 21 L, BUN 28 H, Creatinine 1.1 H, Estimated Creat Clear 35 L, Estimated GFR (MDRD) 47 L, Glucose 86, Calcium 8.0 L, WBC 26.7 *H, RBC 3.00 L, Hgb 8.5 L, Hct 27.3 L, MCV 91.0, RDW 15.7, Plt Count 314, MPV 7.5, Gran % 86.2 H, Gran # 23.1 H, Lymphocytes % 5.1 L, Monocytes % 8.1, Eosinophils % 0.3, Basophils % 0.1, Lymphocytes # 1.4, Monocytes # 2.2 H, Eosinophils # 0.1, Basophils # 0.0, PUBS MCHC 31.1 L, MCH 28.3 04/06/17 1345: Hgb 9.3 L, Hct 28.5 L 04/06/17 1006: Misc Test Units BLOOD UNIT RELEASE Microbiology 04/06 855 BLOOD: Anaerobic Blood Culture - RECD 04/06 855 BLOOD: Aerobic Blood Culture - RECD Assessment/Plan Problem List 1. GI bleed Qualifiers: GI bleed type/associated pathology: unspecified gastrointestinal hemorrhage type Qualified Code: K92.2 - Gastrointestinal hemorrhage, unspecified 2. Anemia of chronic disease 3. Kidney disease, chronic, stage IV (GFR 15-29 ml/min) 4. Foot fracture, left 5. Ischemic cardiomyopathy 6. Systolic CHF with reduced left ventricular function, NYHA class 3 Patient condition Stable This inpt stay is expected to cross 2 MNs from start of care Yes at 0742
--- NOTE | 2017-04-07 09:04 | CONSULT NOTE ---
Pharmacokinetic Consult Date of consult: 04/07/17 Time of consult: 901 Referring provider: DR. HESTER Reason for consult: VANCOMYCIN DOSING Allergies: Coded Allergies: No Known Allergies (03/13/17) Home Medications: Active Scripts NITROGLYCERIN (Nitrostat) 0.4 MG SL [id number] PRN CHEST PAIN #30 TAB Prov: 12/23/16 Oxazepam 10 MG PO BID #60 CAPSULE Ref 1 Prov: 12/23/16 Carvedilol (Carvedilol 12.5MG) 12.5 MG PO BID #60 TAB Ref 11 Prov: 02/18/17 Aspirin (Aspirin EC 81MG) 81 MG PO DAILY #30 TABLET Ref 11 Prov: 02/18/17 DIGOXIN (Digox) 0.125 MG PO DAILY #30 TAB Ref 11 Prov: 02/18/17 Ticagrelor (Brilinta) 90 MG PO BID #60 TAB Ref 11 Prov: 02/18/17 Gabapentin (Neurontin 300MG) 300 MG PO QHS #30 CAP Prov: 03/15/17 Reported Medications POTASSIUM CHL (Potassium Chloride) 40 MEQ PO BID CHOLECALCIFEROL (VITAMIN D3) (Vitamin D-3) 2,000 IU PO DAILY Gabapentin (Gabapentin 300MG) 300 MG PO DAILY ATORVASTATIN CALCIUM (ATORVASTATIN 20MG) 20 MG PO QHS Trazodone Hcl (Trazodone HCl) 150 MG PO QHS Levothyroxine Sodium 0.2 MG PO DAILY Furosemide (Furosemide 40MG) 40 MG PO DAILY Height (feet): 5 Height (inches): 2.00 Medical History: CAD? Yes Angina: Yes [place]: Yes Hypertension? Yes Hyperlipidemia? Yes CHF? No DVT? No PE? No COPD? No Asthma? No Anemia? No GERD? No Gastric ulcers? No GI Bleed? No Hernia? No Thyroid Problems? No Hypothyroidism? No CVA? No Seizures? No Diabetes? No Renal Insuffiency? No UTI? No Stones? No BPH? No GB Disease: No Nephritic Syndrome? No Asplenia? No Hepatitis? No Sickle Cell Disease? No Arthritis? No Migraines? No Cataracts? No Glaucoma? No MRSA? No HIV? No TB? No Anxiety? No Depression? No Cancer? No More? Yes Additional hx: TREMORS, PARKISONS Labs: Laboratory Tests 04/07/17 0620: Sodium 135 L, Potassium 3.9, Chloride 107, Carbon Dioxide 21 L, BUN 28 H, Creatinine 1.1 H, Estimated Creat Clear 35 L, Estimated GFR (MDRD) 47 L, Glucose 86, Calcium 8.0 L, WBC 26.7 *H, RBC 3.00 L, Hgb 8.5 L, Hct 27.3 L, MCV 91.0, RDW 15.7, Plt Count 314, MPV 7.5, Gran % 86.2 H, Gran # 23.1 H, Lymphocytes % 5.1 L, Monocytes % 8.1, Eosinophils % 0.3, Basophils % 0.1, Lymphocytes # 1.4, Monocytes # 2.2 H, Eosinophils # 0.1, Basophils # 0.0, PUBS MCHC 31.1 L, MCH 28.3 04/06/17 1345: Hgb 9.3 L, Hct 28.5 L 04/06/17 1006: Misc Test Units BLOOD UNIT RELEASE Problem List: 1. Pneumonia of right lower lobe due to infectious organism Plan: BASED ON PATIENT FACTORS, RECOMMEND VANCOMYCIN 1 GM IV Q36H. PHARMACY WILL FOLLOW DAILY AND ADJUST APPROPRIATE. at 0904
[2017-04-07 09:33] LABS: NEUTROPHILS 89 % (42-76)
--- NOTE | 2017-04-07 09:39 | SURGEON PROGRESS NOTE ---
Subjective data Subjective data: ANDREA MILES is a 87 F .Patient denies complaint of nausea and vomitting.She reports her last pain level as 0 on a 0-10 pain scale. No major complaints. Assessment findings Assessment Exam General appearance: normal appearance, alert ABD: soft Patient plan Plan: Antibiotics Additional data: HH relatively stable after 3 units. Continue to monitor and continue PPIs. Possible infectious etiology with leukocytosis and low grade fevers. at 0939
[2017-04-07 09:40] VITALS: BP 104/40
--- NOTE | 2017-04-07 10:25 | RADIOLOGY REPORT PS360 ---
CHEST(2 VIEWS-NOT PORTABLE) HISTORY: elevatd wbc, portable suspicous for pneumonia ORDERING PHYSICIAN: Alban Saldivar MD PATIENT AGE: 87 years COMPARISON: 04/06/2017 FINDINGS: Prior CABG. Mild cardiomegaly without failure with mild tortuosity/ectasia of the aorta.. Right upper lobe infiltrate and/or atelectatic change has improved. The remaining lungs are clear. Calcified granuloma is present in the right perihilar region.. No acute bony abnormalities. IMPRESSION: Improvement in right upper lobe airspace disease.
[2017-04-07 14:20] LABS: HEMOGLOBIN 8.7 g/dL (12.2-16.2)
[2017-04-07 15:45] VITALS: BP 95/48
[2017-04-07 19:53] VITALS: BP 107/50
[2017-04-07 20:11] VITALS: BP 107/50
[2017-04-08 04:04] VITALS: BP 97/42
[2017-04-08 06:46] LABS: HEMOGLOBIN 9.2 g/dL (12.2-16.2); LYMPH # 1.4 K/mm3 (0.7-4.5); LYMPH % 6.5 % (10-50.0)
--- NOTE | 2017-04-08 07:17 | ACUTE CARE PROGRESS NOTE (QUA) ---
Progress Notes Subjective Date 04/08/17 Time 0715 Note Patient has no complaints. She did get out of bed yesterday. Repeat PA and lateral chest film confirmed a RIGHT upper lobe pneumonia which likely explains her elevated white blood cell count. Patient reports her stools have returned to normal color Patient is awake and alert. Lungs remained clear to auscultation. Heart has a regular rate and rhythm. Abdomen is soft. Restart aspirin and Brillinta today. Monitor H and H. DC IV fluids. If patient remains stable over next 24 hours she can be discharged. If patient restart aspirin and Brillinta and has drop in H and H she is going to need endoscopy. Continue Rocephin for her pneumonia Assessment/Plan Problem List 1. GI bleed Qualifiers: GI bleed type/associated pathology: unspecified gastrointestinal hemorrhage type Qualified Code: K92.2 - Gastrointestinal hemorrhage, unspecified 2. Anemia of chronic disease 3. Kidney disease, chronic, stage IV (GFR 15-29 ml/min) 4. Foot fracture, left 5. Ischemic cardiomyopathy 6. Systolic CHF with reduced left ventricular function, NYHA class 3 7. Pneumonia of right lower lobe due to infectious organism Patient condition Stable Plan: make medication changes This inpt stay is expected to cross 2 MNs from start of care Yes at 0716
[2017-04-08 08:10] VITALS: BP 98/50
--- NOTE | 2017-04-08 08:47 | SURGEON PROGRESS NOTE ---
Subjective data Subjective data: ANDREA MILES is a 87 F .Patient denies complaint of nausea and vomitting.She reports her last pain level as 0 on a 0-10 pain scale. Patient without complaints. Assessment findings Assessment Exam General appearance: normal appearance, alert ABD: soft Comment: Mild tenderness on exam in left abdomen. Patient plan Plan: Antibiotics Additional data: May obtain non-contrast CT scan due to abdominal pain and leukocytosis. at 0846
--- NOTE | 2017-04-08 12:44 | RADIOLOGY REPORT PS360 ---
CT ABD PELVIS W/O CONTRAST CLINICAL INDICATION: GI BLEED, ANEMIA,ABD. TENDERNESS,LEUOKYCYTOSIS ORDERING PHYSICIAN: Alban Saldivar MD PATIENT AGE: 87 years COMPARISON: None TECHNIQUE: Axial images obtained with sagittal and coronal reformats. PROCEDURE: Oral Contrast: None IV Contrast: None . FINDINGS: Lung base images shows a 6 mm noncalcified nodule in the extreme right lung base anteriorly. Contrast is present in the distal esophagus consistent with reflux. Coronary artery calcifications are noted. No focal liver lesion. Multiple gallstones are present. There is minimal amount of perihepatic fluid. The spleen, adrenal glands, and pancreas are unremarkable. There is mild diffuse thickening of the colon including the rectum consistent with colitis and proctitis. No intestinal obstruction or free air. No pneumatosis. There is minimal stranding of the pericolic fat in the hepatic flexure region. No evidence of diverticulitis or appendicitis. There is mild thickening of the presacral fat. There has been a prior hysterectomy. There is mild dilatation of the infrarenal abdominal aorta measuring up to 2.4 cm. No evidence of retroperitoneal hemorrhage. No acute bony anomalies. IMPRESSION: 1. Diffuse thickening of the colon and rectum consistent with colitis and proctitis. 2. Minimal amount fluid in the perihepatic region and mild thickening of the presacral fat nonspecific. 3. Cholelithiasis.
[2017-04-08 16:06] VITALS: BP 111/55
[2017-04-08 19:33] VITALS: BP 123/56
[2017-04-08 20:00] VITALS: BP 123/56
[2017-04-09 03:58] VITALS: BP 106/46
[2017-04-09 07:01] LABS: HEMOGLOBIN 9.6 g/dL (12.2-16.2); LYMPH # 0.9 K/mm3 (0.7-4.5); LYMPH % 6.7 % (10-50.0)
--- NOTE | 2017-04-09 07:05 | ACUTE CARE PROGRESS NOTE (QUA) ---
Progress Notes Subjective Date 04/09/17 Time 0702 Note Patient denies pain or nausea this morning. She does report poor appetite. She had multiple bowel movements over the last 24 hour which were brown in color and somewhat watery. No dark or tarry stools have been witnessed. CT scan performed yesterday showed findings suggestive of a mild colitis/proctitis. Patient is awake and alert. Lungs are clear to auscultation. Heart has a regular rate and rhythm. Abdomen is soft and nontender. Await labs this morning. If H and H is stable and white count continues to decrease patient will be discharged back to [facility]. Should H and H drop patient will be kept for further monitoring with complete blood counts Objective Findings Last VS-Temp:98.0 B/P:106/46 Pulse:86 Resp:18 SaO2:99 ROOM AIR Last weight lbs:136 oz:5 [id number].[id number] Method:Bed Scales Vital Signs Date Time Temp Pulse Resp B/P Pulse O2 O2 Flow FiO2 Ox Delivery Rate 04/09 0358 98.0 86 18 106/46 99 ROOM AIR Assessment/Plan Problem List 1. GI bleed Qualifiers: GI bleed type/associated pathology: unspecified gastrointestinal hemorrhage type Qualified Code: K92.2 - Gastrointestinal hemorrhage, unspecified 2. Anemia of chronic disease 3. Kidney disease, chronic, stage IV (GFR 15-29 ml/min) 4. Foot fracture, left 5. Ischemic cardiomyopathy 6. Systolic CHF with reduced left ventricular function, NYHA class 3 7. Pneumonia of right upper lobe due to infectious organism Patient condition Stable Plan: continue current care This inpt stay is expected to cross 2 MNs from start of care Yes at 0704
--- NOTE | 2017-04-09 07:22 | Discharge Summary ---
Demographics Admit date: 04/04/17 Discharge date: 04/09/17 Discharge diagnoses Problem List 1. GI bleed 2. Anemia of chronic disease 3. Kidney disease, chronic, stage IV (GFR 15-29 ml/min) 4. Foot fracture, left 5. Ischemic cardiomyopathy 6. Systolic CHF with reduced left ventricular function, NYHA class 3 7. Pneumonia of right upper lobe due to infectious organism History of present illness History of present illness 87-year-old female who over the last 3-4 days at the [facility] where [facility] reported nausea with lightheadedness upon standing and feeling weak. The correction reported an episode of unresponsiveness and she was sent to the emergency department. Patient was awake by the time she reached the emergency department. Workup revealed anemia with a hemoglobin of 6.6 and patient has been admitted for transfusion. Patient reports dark stools over the last 3-4 days maybe even longer. Patient is currently on dual antiplatelet therapy due to underlying coronary artery disease and recent stent placement. Patient was admitted and transfused 2 units of packed red blood cells. This improved patient's H and H. Stools remain dark and tarry. Serial H and H's were performed and patient did require one additional unit of packed red blood cells during hospitalization. Upper gastrointestinal study was performed which did not reveal any significant findings. Endoscopy was withheld due to patient's underlying comorbidities of congestive heart failure and coronary artery disease. Once stools returned to a normal color in patient's H and H and stabilized she was restarted on aspirin Brillinta. Stools remained brown in color and H and H continued to slowly rise. Patient was discharged back to [facility]. Patient was kept on intravenous proton pump inhibitors during entire hospitalization. On April 08 Carafate was added to her regimen. During hospitalization patient presented with an elevated white blood cell count which increased to a maximum of 26,000. Appeared to have RIGHT upper lobe pneumonia on chest x-ray. She was asymptomatic from her pneumonia in regards to cough or shortness of breath. She did have a low-grade fever. Rocephin intravenously was started and this was later transitioned Invanz due to her complaint of some abdominal pain and a CT scan showing some mild colitis. White count day of discharge was 12,000. She will finish a course of antibiotics at discharge. Patient has a LEFT foot fracture and was scheduled to see Dr. Morgan as an outpatient but during hospitalization it was time for her appointment. Dr. Heredia was kind enough to come and see the patient on the floor. Patient has been noncompliant with wearing her protective boot at the correction. She will need to do this when ambulating. Prognosis: Fair Rehab potential: Fair Mental status: Average Medications Medications: Discharge meds are as noted. Follow up Follow up in office in: 2 DAYS with: Alban Saldivar MD at 0704
--- NOTE | 2017-04-09 07:22 | Discharge Summary ---
Demographics Admit date: 04/04/17 Discharge date: 04/09/17 Discharge diagnoses Problem List 1. GI bleed 2. Anemia of chronic disease 3. Kidney disease, chronic, stage IV (GFR 15-29 ml/min) 4. Foot fracture, left 5. Ischemic cardiomyopathy 6. Systolic CHF with reduced left ventricular function, NYHA class 3 7. Pneumonia of right upper lobe due to infectious organism History of present illness History of present illness 87-year-old female who over the last 3[facility] reported nausea with lightheadedness upon standing and feeling weak. The [facility] reported an episode of unresponsiveness and she was sent to the emergency department. Patient was awake by the time she reached the emergency department. Workup revealed anemia with a hemoglobin of 6.6 and patient has been admitted for transfusion. Patient reports dark stools over the last 3-4 days maybe even longer. Patient is currently on dual antiplatelet therapy due to underlying coronary artery disease and recent stent placement. Patient was admitted and transfused 2 units of packed red blood cells. This improved patient's H and H. Stools remain dark and tarry. Serial H and H's were performed and patient did require one additional unit of packed red blood cells during hospitalization. Upper gastrointestinal study was performed which did not reveal any significant findings. Endoscopy was withheld due to patient's underlying comorbidities of congestive heart failure and coronary artery disease. Once stools returned to a normal color in patient's H and H and stabilized she was restarted on aspirin Brillinta. Stools remained brown in color and H and H continued to slowly rise. Patient was discharged back to [facility]. Patient was kept on intravenous proton pump inhibitors during entire hospitalization. On April 08 Carafate was added to her regimen. During hospitalization patient presented with an elevated white blood cell count which increased to a maximum of 26,000. Appeared to have RIGHT upper lobe pneumonia on chest x-ray. She was asymptomatic from her pneumonia in regards to cough or shortness of breath. She did have a low-grade fever. Rocephin intravenously was started and this was later transitioned Invanz due to her complaint of some abdominal pain and a CT scan showing some mild colitis. White count day of discharge was 12,000. She will finish a course of antibiotics at discharge. Patient has a LEFT foot fracture and was scheduled to see Dr. Morgan as an outpatient but during hospitalization it was time for her appointment. Dr. Heredia was kind enough to come and see the patient on the floor. Patient has been noncompliant with wearing her protective boot at the [facility]. She will need to do this when ambulating. Prognosis: Fair Rehab potential: Fair Mental status: Average Medications Medications: Discharge meds are as noted. Follow up Follow up in office in: 2 DAYS with: Alban Saldivar MD at 0793
[2017-04-09] MEDS ORDERED: FEOSOL325 MG PO (07:25)
[2017-04-09] MEDS ORDERED: PANTOPRAZOLE SO40 MG PO (07:25)
[2017-04-09] MEDS ORDERED: CARAFATE1 GM PO (07:25)
[2017-04-09] MEDS ORDERED: LEVAQUIN500 MG PO (07:31)
[2017-04-09 08:00] VITALS: BP 88/48
[2017-04-09 09:33] VITALS: BP 88/48
== END 2017-04-09 09:30 | DRG 377 ==
LOC: ER 13:27 → 2ND 15:40
PROVIDERS: Emergency Medicine; Family Medicine
PROC: 30233N1 Transfusion of Nonautologous Red Blood Cells into Peripheral Vein, Percutaneous Approach (ICD-10-PCS; principal; 2017-04-04)
DX: K92.2 Gastrointestinal hemorrhage, unspecified (principal); J18.9 Pneumonia, unspecified organism; N18.4 Chronic kidney disease, stage 4 (severe); I13.0 Hypertensive heart and chronic kidney disease with heart failure and stage 1 through stage 4 chronic kidney disease, or unspecified chronic kidney disease; D63.1 Anemia in chronic kidney disease; I50.22 Chronic systolic (congestive) heart failure; Z95.1 Presence of aortocoronary bypass graft; I25.5 Ischemic cardiomyopathy; S92.322A Displaced fracture of second metatarsal bone, left foot, initial encounter for closed fracture; I25.10 Atherosclerotic heart disease of native coronary artery without angina pectoris; I25.2 Old myocardial infarction; S92.342A Displaced fracture of fourth metatarsal bone, left foot, initial encounter for closed fracture; Z91.81 History of falling; Z95.5 Presence of coronary angioplasty implant and graft; S92.332A Displaced fracture of third metatarsal bone, left foot, initial encounter for closed fracture; S92.352A Displaced fracture of fifth metatarsal bone, left foot, initial encounter for closed fracture
CPT/HCPCS: G0328; J1335; J2405; J3370; P9016

== ENCOUNTER 2017-04-30 15:17 | Inpatient (IN) | payer MEDICARE, OTHER, MEDICAID ==
[2017-04-30] VITALS (18 sets, daily range): BP systolic 100–136; BP diastolic 58–92
[~2017-04-30] VITALS: Ht 157.5 cm; Wt 63.8 kg
[~2017-04-30 15:17] MED LIST changes: +CARAFATE1 GM PO; +FEOSOL325 MG PO; +LEVAQUIN500 MG PO; +PANTOPRAZOLE SO40 MG PO
--- OUTSIDE RECORDS SUMMARY | 2017-04-30 15:19 | External Medical Summary Rpt | Continuity of Care Document ---
Author Author Organization Address Unknown Phone Unavailable Care Team Providers Care Assistant Loan Processor Name Role Phone , Unavailable Unavailable EMS Current Medications Section EMS Allergies and Adverse Reactions EMS Past Medical History Medications Administered Section EMS Procedures Performed EMS Vital Signs EMS Patient Care Report Narrative D: EC 1 dispatched to [facility] for a patient with declining weakness. Upon arrival patient was laying supine in correction bed. C: 87 year old female with chief complaint of weakness that has been declining in the past few days. RN stated her HNH was low in her last lab reports. H: RN stated patient has not been feeling well since Tuesday and her weakness has been getting worse over the past few days. RN stated they had not performed a BGL due to patient not having a diabetic history, stroke scale was negative for mechanical and auto body car checker strength. Patient stated she just feels weak and that she is nauseated. She is a patient at [place] [facility] recovering from a Left foot fracture. S: Weakness, Nausea and vomiting A: NKA M: Tylenol, ASA, Atorvastatin, Brillinta, Carvedilol, Digoxin, Gabapentin, Lasix, Levothyroxine, Nitroglycerin, Levothyroxine, Potassium Chloride, Trazodone and Zofran. P: Past NSTEMI, Pneumonia, Cardiomyopathy, Heart failure, Hypertension, Parkinson s disease, Hyperlipidemia, Chronic Kidney Disease Stage 3, Muscle weakness and anemia. L: Tuesday E: Progressive weakness since tuesday A: Patient A&O x4. Vitals were normotensive for blood pressure, heart rate within normal limits, 02 sat normal on room air, BGL elevated at 212, 12 lead showed Normal Sinus Rhythm with old ischemia from prior myocardial infarction. Patient denies any pain. [place] Stroke Assessment revealed negative deficits. Started 20 jerrica IV on patient flushed and secured. Hooked to 500ml bag of normal saline run at KVO rate. Patient has had no change in medications or any falls recently. R: Vitals, 12 lead, 20 jerrica IV, NS 500ml bag KVO, BGL, Stroke Assessment, ALS assessment and continued monitoring. T: Transferred patient to stretcher with assist x4, secured x5 and loaded in to EC unit. Patient had no change enroute to [facility] for further evaluation. Transferred patient to hospital bed with assist x4; no issue. Care transferred to Myranda Weathers RN. M: Patient transported by EMS due to acute illness. Patient unable to ambulate due to left foot fracture. A: Vitals, EKG 12 lead showing Normal Sinus Rhythm and ischemia from prior
--- OUTSIDE RECORDS SUMMARY | 2017-04-30 15:19 | External Medical Summary Rpt | Continuity of Care Document ---
Author Author Organization Address Unknown Phone Unavailable Care Team Providers Care Dietary Aide Name Role Phone , Unavailable Unavailable EMS Current Medications Section EMS Allergies and Adverse Reactions EMS Past Medical History Medications Administered Section EMS Procedures Performed EMS Vital Signs EMS Patient Care Report Narrative D: EC 1 dispatched to [facility] for a patient with declining weakness. Upon arrival patient was laying supine in half-way bed. C: 87 year old female with [...] diabetic history, stroke scale was negative for health editor strength. Patient stated she just feels weak and that she is nauseated. She is a patient at [place] recovering from a Left foot fracture. S: [...] prior myocardial infarction. Patient denies any pain. [place] Stroke Assessment revealed negative deficits. Started 20 [...] unit. Patient had no change enroute to [facility] for further evaluation. Transferred patient to hospital bed with assist x4; no issue. Care transferred to Myranda Weathers RN. M: Patient transported by EMS due to acute illness. Patient unable to ambulate due to left foot fracture. A: Vitals, EKG 12 lead showing Normal Sinus Rhythm and ischemia from prior
--- OUTSIDE RECORDS SUMMARY | 2017-04-30 15:19 | External Medical Summary Rpt | Continuity of Care Document ---
Author Author Organization Address Unknown Phone Unavailable Care Team Providers Care Varnishing Machine Operator Name Role Phone , Unavailable Unavailable EMS Current Medications Section EMS Allergies and Adverse Reactions EMS Past Medical History Medications Administered Section EMS Procedures Performed EMS Vital Signs EMS Patient Care Report Narrative D: EC 1 dispatched to [facility] for a patient with declining weakness. Upon arrival patient was laying supine in jail bed. C: 87 year old female with [...] diabetic history, stroke scale was negative for flower maker strength. Patient stated she just feels weak and that she is nauseated. She is a patient at [place] recovering from a Left foot fracture. S: [...] prior myocardial infarction. Patient denies any pain. [place] Stroke Assessment revealed negative deficits. Started 20 [...] unit. Patient had no change enroute to [facility] for further evaluation. Transferred patient to hospital bed with assist x4; no issue. Care transferred to Myranda Weathers RN. M: Patient transported by EMS due to acute illness. Patient unable to ambulate due to left foot fracture. A: Vitals, EKG 12 lead showing Normal Sinus Rhythm and ischemia from prior
--- OUTSIDE RECORDS SUMMARY | 2017-04-30 15:19 | External Medical Summary Rpt | Continuity of Care Document ---
Author Author Organization Address Unknown Phone Unavailable Care Team Providers Care Academic Administrator Name Role Phone , Unavailable Unavailable EMS Current Medications Section EMS Allergies and Adverse Reactions EMS Past Medical History Medications Administered Section EMS Procedures Performed EMS Vital Signs EMS Patient Care Report Narrative D: EC 1 dispatched to [facility] for a patient with declining weakness. Upon arrival patient was laying supine in [facility] bed. C: 87 year old female with [...] diabetic history, stroke scale was negative for professor of theatre strength. Patient stated she just feels weak and that she is nauseated. She is a patient at [place] recovering from a Left foot fracture. S: [...] prior myocardial infarction. Patient denies any pain. [place] Stroke Assessment revealed negative deficits. Started 20 [...] no change enroute to [facility] for further evaluation. Transferred patient to hospital bed with assist x4; no issue. Care transferred to Myranda Weathers RN. M: Patient transported by EMS due to acute illness. Patient unable to ambulate due to left foot fracture. A: Vitals, EKG 12 lead showing Normal Sinus Rhythm and ischemia from prior
--- OUTSIDE RECORDS SUMMARY | 2017-04-30 15:24 | External Medical Summary Rpt | CCD ---
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, UNSPECIFIED R29.6 REPEATED FALLS R41.0 DISORIENTAT ION, UNSPECIFIED R42 DIZZINESS AND GIDDINESS R53.1 WEAKNESS R74.8 ABNORMAL LEVELS OF OTHER SERUM ENZYMES S81.812A LACERATION WITHOUT FOREIGN BODY, LEFT LOWER LEG, INIT ENCNTR S92.902A UNSP FRACTURE OF LEFT FOOT, INIT ENCNTR FOR CLOSED FRACTURE W19.XXXA UNSPECIFIED FALL, INITIAL ENCOUNTER Results Labs Lab Lab Date Result Refere Interp Status Commen Order Detail nces retati t Range on CBC w auto diff (04-30-2017 09:00) Automat = 0.0 0-0.2 complet ed 017 K/MM3 ed blood 09:00 basophi l count (count/ vo Baso % = 0.5 % 0.1-2.0 complet 017 ed 09:00 Automat = 0.2 0.0-0.4 complet ed 017 K/mm3 ed blood 09:00 eosinop hil count Automat = 2.6 % 0.1-12. complet ed 017 0 ed blood 09:00 eosinop hils/10 0 leukocy t Blood = 5.8 1.8-7.8 complet granulo 017 K/mm3 ed cytes 09:00 automat ed count (numb Granulo = 76.3 37.0-80 complet cyte 017 % .0 ed percent 09:00 age Blood = 24.9 37.0-47 complet hematoc 017 % .0 ed rit 09:00 (volume fractio n) Blood = 8.2 12.2-16 complet hemoglo 017 g/dL .2 ed bin 09:00 measure ment (mass/v olum Absolut = 1.0 0.7-4.5 complet e 017 K/mm3 ed lymphoc 09:00 yte count Lymphoc = 12.9 10-50.0 complet yte 017 % ed count, 09:00 blood, automat ed Mean = 29.0 27-31.2 complet corpusc 017 pg ed ular 09:00 hemoglo bin (MCH) determ Automat = 32.4 31.8-35 complet ed 017 g/dl .4 ed erythro 09:00 cyte mean corpusc ular h Automat = 89.7 82.2-97 complet ed 017 fl .8 ed erythro 09:00 cyte mean corpusc ular v Absolut = 0.6 0.1-1.0 complet e 017 K/mm3 ed monocyt 09:00 e count Davis % = 7.7 % 1.7-9.3 complet 017 ed 09:00 Automat = 8.9 7.4-10. complet ed 017 fl 4 ed blood 09:00 platele t mean volume karsten Blood = 253 142-424 complet platele 017 K/mm3 ed t count 09:00 Red = 2.78 4.2-5.4 complet blood 017 M/mm3 ed cell 09:00 count Automat = 18.9 11.5-17 complet ed 017 % .5 ed erythro 09:00 cyte distrib ution width Blood = 7.7 4.8-10. complet leukocy 017 K/MM3 8 ed olya 09:00 count (number /volume ) CBC w auto diff (04-28-2017) Automat 2 = 4.3 % 0.1-12. complet ed 017 0 ed blood eosinop hils/10 0 leukocy t Baso % = 0.7 % 0.1-2.0 complet 017 ed Automat = 0.1 0-0.2 complet ed 017 K/MM3 ed blood basophi l count (count/ vo Blood = 8.2 4.8-10. complet leukocy 017 K/MM3 8 ed olya count (number /volume ) Automat = 17.9 11.5-17 complet ed 017 % .5 ed erythro cyte distrib ution width Red = 3.61 4.2-5.4 complet blood 017 M/mm3 ed cell count Blood = 293 142-424 complet platele 017 K/mm3 ed t count Automat = 8.4 7.4-10. complet ed 017 fl 4 ed blood platele t mean volume karsten Davis % = 9.5 % 1.7-9.3 complet 017 ed Absolut = 0.8 0.1-1.0 complet e 017 K/mm3 ed monocyt e count Automat = 89.1 82.2-97 complet ed 017 fl .8 ed erythro cyte mean corpusc ular v Automat = 32.3 31.8-35 complet ed 017 g/dl .4 ed erythro cyte mean corpusc ular h Mean = 28.8 27-31.2 complet corpusc 017 pg ed ular hemoglo bin (MCH) determ Lymphoc = 14.6 10-50.0 complet yte 017 % ed count, blood, automat ed Absolut = 1.2 0.7-4.5 complet e 017 K/mm3 ed lymphoc yte count Blood = 10.4 12.2-16 complet hemoglo 017 g/dL .2 ed bin measure ment (mass/v olum Blood = 32.2 37.0-47 complet hematoc 017 % .0 ed rit (volume fractio n) Granulo = 71.0 37.0-80 complet cyte 017 % .0 ed percent age Blood = 5.8 1.8-7.8 complet granulo 017 K/mm3 ed cytes automat ed count (numb Automat = 0.4 0.0-0.4 complet ed 017 K/mm3 ed blood eosinop hil count DIARRHEA PANEL,PCR (04-10-2017) Stool NOT NOT complet Plesiom 017 DETECTE DETECTE ed onas D NOT shigell DETECTE oides D L DNA detec Rotavir NOT NOT complet us RNA 017 DETECTE DETECTE ed detecti D NOT on by DETECTE probe D L and tar Salmone NOT NOT complet lla 017 DETECTE DETECTE ed species D NOT DNA DETECTE detecti D L on by prob Caliciv NOT NOT complet irus ID 017 DETECTE DETECTE ed D NOT DETECTE D L Escheri NOT NOT complet cezar 017 DETECTE DETECTE ed coli D NOT shiga-l DETECTE gaby D L toxin STX1 a Vibrio NOT NOT complet cholera 017 DETECTE DETECTE ed e DNA D NOT detecti DETECTE on by D L probe a Vibrio NOT NOT complet species 017 DETECTE DETECTE ed D NOT nucleic DETECTE acid D L assay by PCR Stool NOT NOT complet Vibrio 017 DETECTE DETECTE ed species D NOT DETECTE identif D L ication by o Stool NOT NOT complet adenovi 017 DETECTE DETECTE ed daphnie 40 D NOT and 41 DETECTE antigen D L assay Aeromon NOT NOT complet as 017 DETECTE DETECTE ed salmoni D NOT maine DETECTE detecti D L on Astrovi NOT NOT complet daphnie 017 DETECTE DETECTE ed detecti D NOT on DETECTE D L Campylo NOT NOT complet bacter 017 DETECTE DETECTE ed antibod D NOT y assay DETECTE D L Stool DETECTE NOT complet Clostri 017 D DETECTE ed dium DETECTE diffici D L le A and B toxi Comment: RESULTS CALLED TO: DR. HESTER 04/10/17 2200 LukeOzzie NOT NOT complet poridiu 017 DETECTE DETECTE ed m ag D NOT detecti DETECTE on D L Cyclosp NOT NOT complet ora 017 DETECTE DETECTE ed cayetan D NOT esis DETECTE detecti D L on E coli NOT NOT complet detecti 017 DETECTE DETECTE ed on D NOT DETECTE D L Escheri NOT NOT complet cezar 017 DETECTE DETECTE ed coli D NOT detecti DETECTE on D L Escheri NOT NOT complet cezar 017 DETECTE DETECTE ed coli D NOT Shiga-l DETECTE gaby D L toxin 1 assa Escheri NOT NOT complet cezar 017 DETECTE DETECTE ed coli D NOT O157 DETECTE stool D L culture Entamoe NOT NOT complet ba 017 DETECTE DETECTE ed histoly D NOT rudolph DETECTE detecti D L on Stool NOT NOT complet Giardia 017 DETECTE DETECTE ed D NOT lamblia DETECTE D L antigen detecti on Stool NOT NOT complet norovir 017 DETECTE DETECTE ed us D NOT assay DETECTE D L Digoxin level (04-09-2017 06:34) Digoxin = 1.03 1.15-2. complet level 017 ng/mL 56 ed 06:34 Basic metabolic panel (04-09-2017 06:34) Serum = 8.2 8.5-10. complet or 017 mg/dL 1 ed plasma 06:34 calcium measure ment ([facility] Serum = 138 136-145 complet sodium 017 mmoL/L ed measure 06:34 ment Serum = 3.3 3.5-5.1 complet potassi 017 mmoL/L ed um 06:34 measure ment Serum = 96 74-106 complet or 017 mg/dL ed plasma 06:34 glucose measure ment (mas Estimat = 59 59- complet ed 017 ML/MIN ed glomeru 06:34 lar filtrat ion rate (GF Comment: REFERENCE RANGE: >60 ML/MIN/1.73 SQUARE METERS Comment: If this patient is -[place], then multiply the Comment: result by 1.210. Estimat = 43 50-200 complet ion of 017 ML/MIN ed creatin 06:34 ine renal clearan ce Serum = 0.9 0.55-1. complet or 017 mg/dL 02 ed plasma 06:34 creatin ine measure ment ( Carbon = 19 21.0-32 complet dioxide 017 mmoL/L .0 ed 06:34 measure ment Serum = 107 98-107 complet or 017 mmoL/L ed plasma 06:34 chlorid e measure ment (mo Serum = 12 7-18 complet or 017 mg/dL ed plasma 06:34 urea nitroge n measure men CBC w auto diff (04-09-2017 06:34) Blood = 12.9 4.8-10. complet leukocy 017 K/MM3 8 ed olya 06:34 count (number /volume ) Automat = 15.5 11.5-17 complet ed 017 % .5 ed erythro 06:34 cyte distrib ution width Red = 3.38 4.2-5.4 complet blood 017 M/mm3 ed cell 06:34 count Blood = 389 142-424 complet platele 017 K/mm3 ed t count 06:34 Automat = 7.4 7.4-10. complet ed 017 fl 4 ed blood 06:34 platele t mean volume karsten Davis % = 7.3 % 1.7-9.3 complet 017 ed 06:34 Absolut = 1.0 0.1-1.0 complet e 017 K/mm3 ed monocyt 06:34 e count Automat = 89.3 82.2-97 complet ed 017 fl .8 ed erythro 06:34 cyte mean corpusc ular v Automat = 31.9 31.8-35 complet ed 017 g/dl .4 ed erythro 06:34 cyte mean corpusc ular h Mean = 28.4 27-31.2 complet corpusc 017 pg ed ular 06:34 hemoglo bin (MCH) determ Lymphoc = 6.7 % 10-50.0 complet yte 017 ed count, 06:34 blood, automat ed Absolut = 0.9 0.7-4.5 complet e 017 K/mm3 ed lymphoc 06:34 yte count Blood = 9.6 12.2-16 complet hemoglo 017 g/dL .2 ed bin 06:34 measure ment (mass/v olum Granulo = 83.5 37.0-80 complet cyte 017 % .0 ed percent 06:34 age Blood = 10.8 1.8-7.8 complet granulo 017 K/mm3 ed cytes 06:34 automat ed count (numb Automat = 2.1 % 0.1-12. complet ed 017 0 ed blood 06:34 eosinop hils/10 0 leukocy t Automat = 0.3 0.0-0.4 complet ed 017 K/mm3 ed blood 06:34 eosinop hil count Baso % = 0.3 % 0.1-2.0 complet 017 ed 06:34 Automat = 0.0 0-0.2 complet ed 017 K/MM3 ed blood 06:34 basophi l count (count/ vo Blood = 30.1 37.0-47 complet hematoc 017 % .0 ed rit 06:34 (volume fractio n) Basic metabolic panel (04-08-2017 06:12) Serum = 136 136-145 complet sodium 017 mmoL/L ed measure 06:12 ment Serum = 4.0 3.5-5.1 complet potassi 017 mmoL/L ed um 06:12 measure ment Serum = 75 74-106 complet or 017 mg/dL ed plasma 06:12 glucose measure ment (mas Estimat = 68 59- complet ed 017 ML/MIN ed glomeru 06:12 lar filtrat ion rate (GF Comment: REFERENCE RANGE: >60 ML/MIN/1.73 SQUARE METERS Comment: If this patient is -[place], then multiply the Comment: result by 1.210. Estimat = 48 50-200 complet ion of 017 ML/MIN ed creatin 06:12 ine renal clearan ce Serum = 0.8 0.55-1. complet or 017 mg/dL 02 ed plasma 06:12 creatin ine measure ment ( Carbon = 17 21.0-32 complet dioxide 017 mmoL/L .0 ed 06:12 measure ment Serum = 107 98-107 complet or 017 mmoL/L ed plasma 06:12 chlorid e measure ment (mo Serum = 8.3 8.5-10. complet or 017 mg/dL 1 ed plasma 06:12 calcium measure ment (mas Serum = 20 7-18 complet or 017 mg/dL ed plasma 06:12 urea nitroge n measure men CBC w auto diff (04-08-2017 06:12) Automat = 33.3 31.8-35 complet ed 017 g/dl .4 ed erythro 06:12 cyte mean corpusc ular h Mean = 30.1 27-31.2 complet corpusc 017 pg ed ular 06:12 hemoglo bin (MCH) determ Lymphoc = 6.5 % 10-50.0 complet yte 017 ed count, 06:12 blood, automat ed Absolut = 1.4 0.7-4.5 complet e 017 K/mm3 ed lymphoc 06:12 yte count Blood = 9.2 12.2-16 complet hemoglo 017 g/dL .2 ed bin 06:12 measure ment (mass/v olum Blood = 27.8 37.0-47 complet hematoc 017 % .0 ed rit 06:12 (volume fractio n) Granulo = 84.9 37.0-80 complet cyte 017 % .0 ed percent 06:12 age Blood = 17.5 1.8-7.8 complet granulo 017 K/mm3 ed cytes 06:12 automat ed count (numb Automat = 1.0 % 0.1-12. complet ed 017 0 ed blood 06:12 eosinop hils/10 0 leukocy t Automat = 0.2 0.0-0.4 complet ed 017 K/mm3 ed blood 06:12 eosinop hil count Baso % = 0.1 % 0.1-2.0 complet 017 ed 06:12 Automat = 0.0 0-0.2 complet ed 017 K/MM3 ed blood 06:12 basophi l count (count/ vo Blood = 20.6 4.8-10. complet leukocy 017 K/MM3 8 ed olya 06:12 count (number /volume ) Automat = 15.6 11.5-17 complet ed 017 % .5 ed erythro 06:12 cyte distrib ution width Red = 3.07 4.2-5.4 complet blood 017 M/mm3 ed cell 06:12 count Blood = 327 142-424 complet platele 017 K/mm3 ed t count 06:12 Automat = 7.6 7.4-10. complet ed 017 fl 4 ed blood 06:12 platele t mean volume karsten Davis % = 7.5 % 1.7-9.3 complet 017 ed 06:12 Absolut = 1.6 0.1-1.0 complet e 017 K/mm3 ed monocyt 06:12 e count Automat = 90.4 82.2-97 complet ed 017 fl .8 ed erythro 06:12 cyte mean corpusc ular v Whole blood hemoglobin and hematocrit pa (04-07-2017 14:12) Blood = 8.7 12.2-16 complet hemoglo 017 g/dL .2 ed bin 14:12 measure ment (mass/v olum Blood = 26.7 37.0-47 complet hematoc 017 % .0 ed rit 14:12 (volume fractio n) Basic metabolic panel (04-07-2017 06:20) Serum = 135 136-145 complet sodium 017 mmoL/L ed measure 06:20 ment Serum = 3.9 3.5-5.1 complet potassi 017 mmoL/L ed um 06:20 measure ment Serum = 86 74-106 complet or 017 mg/dL ed plasma 06:20 glucose measure ment (mas Estimat = 47 59- complet ed 017 ML/MIN ed glomeru 06:20 lar filtrat ion rate (GF Comment: REFERENCE RANGE: >60 ML/MIN/1.73 SQUARE METERS Comment: If this patient is -[place], then multiply the Comment: result by 1.210. Estimat = 35 50-200 complet ion of 017 ML/MIN ed creatin 06:20 ine renal clearan ce Serum = 1.1 0.55-1. complet or 017 mg/dL 02 ed plasma 06:20 creatin ine measure ment ( Carbon = 21 21.0-32 complet dioxide 017 mmoL/L .0 ed 06:20 measure ment Serum = 107 98-107 complet or 017 mmoL/L ed plasma 06:20 chlorid e measure ment (mo Serum = 8.0 8.5-10. complet or 017 mg/dL 1 ed plasma 06:20 calcium measure ment (mas Serum = 28 7-18 complet or 017 mg/dL ed plasma 06:20 urea nitroge n measure men CBC w auto diff (04-07-2017 06:20) Blood = 26.7 4.8-10. complet leukocy 017 K/MM3 8 ed olya 06:20 count (number /volume ) Automat = 31.1 31.8-35 complet ed 017 g/dl .4 ed erythro 06:20 cyte mean corpusc ular h Mean = 28.3 27-31.2 complet corpusc 017 pg ed ular 06:20 hemoglo bin (MCH) determ Automat = 15.7 11.5-17 complet ed 017 % .5 ed erythro 06:20 cyte distrib ution width Red = 3.00 4.2-5.4 complet blood 017 M/mm3 ed cell 06:20 count Blood = 314 142-424 complet platele 017 K/mm3 ed t count 06:20 Automat = 7.5 7.4-10. complet ed 017 fl 4 ed blood 06:20 platele t mean volume karsten Davis % = 8.1 % 1.7-9.3 complet 017 ed 06:20 Absolut = 2.2 0.1-1.0 complet e 017 K/mm3 ed monocyt 06:20 e count Automat = 91.0 82.2-97 complet ed 017 fl .8 ed erythro 06:20 cyte mean corpusc ular v Lymphoc = 5.1 % 10-50.0 complet yte 017 ed count, 06:20 blood, automat ed Absolut = 1.4 0.7-4.5 complet e 017 K/mm3 ed lymphoc 06:20 yte count Blood = 8.5 12.2-16 complet hemoglo 017 g/dL .2 ed bin 06:20 measure ment (mass/v olum Blood = 27.3 37.0-47 complet hematoc 017 % .0 ed rit 06:20 (volume fractio n) Granulo = 86.2 37.0-80 complet cyte 017 % .0 ed percent 06:20 age Blood = 23.1 1.8-7.8 complet granulo 017 K/mm3 ed cytes 06:20 automat ed count (numb Automat = 0.3 % 0.1-12. complet ed 017 0 ed blood 06:20 eosinop hils/10 0 leukocy t Automat = 0.1 0.0-0.4 complet ed 017 K/mm3 ed blood 06:20 eosinop hil count Baso % = 0.1 % 0.1-2.0 complet 017 ed 06:20 Automat = 0.0 0-0.2 complet ed 017 K/MM3 ed blood 06:20 basophi l count (count/ vo Differential panel, method unspecified - (04-07-2017 06:20) Blood = 100 complet total 017 #CELLS ed cell 06:20 count Blood 2+ 2+ L complet schisto 017 ed cytes 06:20 detecti on by light mi Neutrop = 89 % 42-76 complet hil 017 ed count 06:20 Platele NORMAL complet t 017 NORMAL ed estimat 06:20 L e Monocyt = 3 % 2-9 complet e % 017 ed 06:20 LYMPH 8 % 10-50 complet 017 ed 06:20 Hypochr 1+ 1+ L complet omatic 017 ed red 06:20 blood cell detecti on Blood 2+ 2+ L complet mayito 017 ed cells 06:20 detecti on by light micr Acantho 1+ 1+ L complet cyte 017 ed detecti 06:20 on Differential panel, method unspecified - (04-07-2017 06:20) Acantho 1+ complet cytes 017 ed [Presen 06:20 ce] in Blood by Light microsc opy Mayito 2+ complet cells 017 ed [Presen 06:20 ce] in Blood by Light microsc opy Hypochr 1+ complet omia 017 ed [Presen 06:20 ce] in Blood LYMPH 8 % 10% - Low complet 017 50% ed 06:20 Platele NORMAL complet ts 017 ed [Presen 06:20 ce] in Blood by Light microsc opy Schisto 2+ complet cytes 017 ed [Presen 06:20 ce] in Blood by Light microsc opy Whole blood hemoglobin and hematocrit pa (04-06-2017 13:45) Blood = 9.3 12.2-16 complet hemoglo 017 g/dL .2 ed bin 13:45 measure ment (mass/v olum Blood = 28.5 37.0-47 complet hematoc 017 % .0 ed rit 13:45 (volume fractio n) Leukocyte reduction of packed red blood (04-06-2017 10:06) Leukocy BLOOD complet te 017 UNIT ed reducti 10:06 RELEASE on of BLOOD packed UNIT red RELEASE blood L Comment: BLOOD UNIT # : [id number] RELEASED 04/06/17 Comment: Buddy Comer Comment: Comment: A POSITIVE Blood product special preparation [Type] (04-06-2017 10:06) Blood BLOOD complet product 017 UNIT ed 10:06 RELEASE special prepara tion [Type] CBC w auto diff (04-06-2017 07:11) Blood = 26.0 4.8-10. complet leukocy 017 K/MM3 8 ed olya 07:11 count (number /volume ) Automat = 15.3 11.5-17 complet ed 017 % .5 ed erythro 07:11 cyte distrib ution width Red = 2.73 4.2-5.4 complet blood 017 M/mm3 ed cell 07:11 count Blood = 336 142-424 complet platele 017 K/mm3 ed t count 07:11 Automat = 7.2 7.4-10. complet ed 017 fl 4 ed blood 07:11 platele t mean volume karsten Davis % = 6.9 % 1.7-9.3 complet 017 ed 07:11 Absolut = 1.8 0.1-1.0 complet e 017 K/mm3 ed monocyt 07:11 e count Automat = 92.4 82.2-97 complet ed 017 fl .8 ed erythro 07:11 cyte mean corpusc ular v Automat = 31.2 31.8-35 complet ed 017 g/dl .4 ed erythro 07:11 cyte mean corpusc ular h Mean = 28.8 27-31.2 complet corpusc 017 pg ed ular 07:11 hemoglo bin (MCH) determ Lymphoc = 6.4 % 10-50.0 complet yte 017 ed count, 07:11 blood, automat ed Absolut = 1.7 0.7-4.5 complet e 017 K/mm3 ed lymphoc 07:11 yte count Blood = 7.9 12.2-16 complet hemoglo 017 g/dL .2 ed bin 07:11 measure ment (mass/v olum Comment: CRITICAL RESULTS Comment: RESULTS CALLED TO: LITA Regan 04/06/17 0806 Buddy Comer Comment: Inez Blood = 25.2 37.0-47 complet hematoc 017 % .0 ed rit 07:11 (volume fractio n) Granulo = 86.4 37.0-80 complet cyte 017 % .0 ed percent 07:11 age Blood = 22.5 1.8-7.8 complet granulo 017 K/mm3 ed cytes 07:11 automat ed count (numb Automat = 0.1 % 0.1-12. complet ed 017 0 ed blood 07:11 eosinop hils/10 0 leukocy t Automat = 0.0 0.0-0.4 complet ed 017 K/mm3 ed blood 07:11 eosinop hil count Baso % = 0.2 % 0.1-2.0 complet 017 ed 07:11 Automat = 0.0 0-0.2 complet ed 017 K/MM3 ed blood 07:11 basophi l count (count/ vo Fecal occult blood test (04-05-2017 13:55) Comment: Collected by nurse? Y Comment: Hold specimen in OE? N Stool POSITIV NEG complet occult 017 E ed blood 13:55 POSITIV test on E L first specime Hemoglobin.gastrointestinal [Presence] in Stool (04-05-2017 13:55) Hemoglo POSITIV NEG complet bin.gas 017 E ed trointe 13:55 stinal [Presen ce] in Stool --1st specime n Basic metabolic panel (04-05-2017 08:07) Comment: SAMPLES DRAWN LATE DUE TO VESSEL [employer] DOWNS Serum = 145 136-145 complet sodium 017 mmoL/L ed measure 08:07 ment Serum = 4.4 3.5-5.1 complet potassi 017 mmoL/L ed um 08:07 measure ment Serum = 95 74-106 complet or 017 mg/dL ed plasma 08:07 glucose measure ment (mas Estimat = 30 59- complet ed 017 ML/MIN ed glomeru 08:07 lar filtrat ion rate (GF Comment: REFERENCE RANGE: >60 ML/MIN/1.73 SQUARE METERS Comment: If this patient is -[place], then multiply the Comment: result by 1.210. Estimat = 24 50-200 complet ion of 017 ML/MIN ed creatin 08:07 ine renal clearan ce Serum = 1.6 0.55-1. complet or 017 mg/dL 02 ed plasma 08:07 creatin ine measure ment ( Carbon = 24 21.0-32 complet dioxide 017 mmoL/L .0 ed 08:07 measure ment Serum = 113 98-107 complet or 017 mmoL/L ed plasma 08:07 chlorid e measure ment (mo Serum = 56 7-18 complet or 017 mg/dL ed plasma 08:07 urea nitroge n measure men Serum = 8.7 8.5-10. complet or 017 mg/dL 1 ed plasma 08:07 calcium measure ment (mas Differential panel, method unspecified - (04-05-2017 08:00) Comment: SAMPLES DRAWN LATE DUE TO VESSEL [employer] Blood = 100 complet total 017 #CELLS ed cell 08:00 count Neutrop = 82 % 42-76 complet hil 017 ed count 08:00 Platele NORMAL complet t 017 NORMAL ed estimat 08:00 L e Ovalocy 1+ 1+ L complet te 017 ed detecti 08:00 on Blood = 4 % 0-1 complet nucleat 017 ed ed 08:00 erythro cytes count (numb Monocyt = 5 % 2-9 complet e % 017 ed 08:00 LYMPH 13 % 10-50 complet 017 ed 08:00 Hypochr 1+ 1+ L complet omatic 017 ed red 08:00 blood cell detecti on Acantho 1+ 1+ L complet cyte 017 ed detecti 08:00 on CBC w auto diff (04-05-2017 08:00) Comment: SAMPLES DRAWN LATE DUE TO VESSEL [employer] Blood = 15.3 4.8-10. complet leukocy 017 K/MM3 8 ed olya 08:00 count (number /volume ) Automat = 14.9 11.5-17 complet ed 017 % .5 ed erythro 08:00 cyte distrib ution width Red = 3.06 4.2-5.4 complet blood 017 M/mm3 ed cell 08:00 count Blood = 389 142-424 complet platele 017 K/mm3 ed t count 08:00 Automat = 0.0 0-0.2 complet ed 017 K/MM3 ed blood 08:00 basophi l count (count/ vo Automat = 7.4 7.4-10. complet ed 017 fl 4 ed blood 08:00 platele t mean volume karsten Davis % = 5.9 % 1.7-9.3 complet 017 ed 08:00 Absolut = 0.9 0.1-1.0 complet e 017 K/mm3 ed monocyt 08:00 e count Automat = 90.9 82.2-97 complet ed 017 fl .8 ed erythro 08:00 cyte mean corpusc ular v Automat = 32.2 31.8-35 complet ed 017 g/dl .4 ed erythro 08:00 cyte mean corpusc ular h Mean = 29.2 27-31.2 complet corpusc 017 pg ed ular 08:00 hemoglo bin (MCH) determ Lymphoc = 10.9 10-50.0 complet yte 017 % ed count, 08:00 blood, automat ed Absolut = 1.7 0.7-4.5 complet e 017 K/mm3 ed lymphoc 08:00 yte count Blood = 8.9 12.2-16 complet hemoglo 017 g/dL .2 ed bin 08:00 measure ment (mass/v olum Blood = 27.8 37.0-47 complet hematoc 017 % .0 ed rit 08:00 (volume fractio n) Granulo = 82.6 37.0-80 complet cyte 017 % .0 ed percent 08:00 age Blood = 12.6 1.8-7.8 complet granulo 017 K/mm3 ed cytes 08:00 automat ed count (numb Automat = 0.3 % 0.1-12. complet ed 017 0 ed blood 08:00 eosinop hils/10 0 leukocy t Automat = 0.1 0.0-0.4 complet ed 017 K/mm3 ed blood 08:00 eosinop hil count Blood = 14.7 complet leukocy 017 K/mm3 ed olya 08:00 count correct ed for nuc Baso % = 0.3 % 0.1-2.0 complet 017 ed 08:00 Differential panel, method unspecified - (04-05-2017 08:00) Acantho 1+ complet cytes 017 ed [Presen 08:00 ce] in Blood by Light microsc opy Hypochr 1+ complet omia 017 ed [Presen 08:00 ce] in Blood LYMPH 13 % 10% - Normal complet 017 50% ed 08:00 Ovalocy 1+ complet olya 017 ed [Presen 08:00 ce] in Blood by Light microsc opy Platele NORMAL complet ts 017 ed [Presen 08:00 ce] in Blood by Light microsc opy Leukocyte reduction of packed red blood (04-04-2017 22:15) Leukocy BLOOD complet te 017 UNIT ed reducti 22:15 RELEASE on of BLOOD packed UNIT red RELEASE blood L Comment: Comment: BLOOD UNIT # : [id number] RELEASED 04/04/17 Comment: Ingrid Sun Blood product special preparation [Type] (04-04-2017 22:15) Blood BLOOD complet product 017 UNIT ed 22:15 RELEASE special prepara tion [Type] Leukocyte reduction of packed red blood (04-04-2017 17:42) Leukocy BLOOD complet te 017 UNIT ed reducti 17:42 RELEASE on of BLOOD packed UNIT red RELEASE blood L Comment: BLOOD UNIT # : [id number] RELEASED A POS Comment: 04/04/17 Comment: Ragini Gil Blood product special preparation [Type] (04-04-2017 17:42) Blood BLOOD complet product 017 UNIT ed 17:42 RELEASE special prepara tion [Type] Crossmatch (04-04-2017 15:51) Comment: Hold? N Comment: Transfuse now? 1 UNIT NOW [employer] COMPAT complet te spin 017 COMPAT ed 15:51 L crossma tch Interpr COMPAT complet etation 017 COMPAT ed of 15:51 L major crossma tch resul Blood type and crossmatch (04-04-2017 15:51) Rh POSITIV complet blood 017 E ed group 15:51 POSITIV typing E L Materna NEGATIV NEGATIV complet l 017 E E ed antibod 15:51 NEGATIV y E L screen Blood A A L complet ABO 017 ed group 15:51 typing Comment: TIME 1625 Comment: Blood type & Crossmatch panel in Blood (04-04-2017 15:51) Blood NEGATIV NEGATIV complet group 017 E E ed antibod 15:51 y screen [Presen ce] in Serum or Plasma Rh POSITIV complet [Type] 017 E ed in 15:51 Blood ABO A complet group 017 ed [Type] 15:51 in Blood Blood type & Crossmatch panel in Blood (04-04-2017 15:51) Major COMPAT complet crossma 017 ed tch 15:51 [interp retatio n] Major COMPAT complet crossma 017 ed tch 15:51 [interp retatio n] by Immedia te spin Iron and TIBC (04-04-2017 14:19) Comment: COMMENTS TO BARTENDER MANAGER: use blood drawn from ER if Comment: possible Serum = 7 % 15-55 complet or 017 ed plasma 14:19 iron saturat ion measure m Comment: Performed at: - [facility] Comment: [id number], [place] [id number] Comment: Application Integration Architect: Tian Holt PhD, Phone: [phone] Iron, = 17 27-139 complet serum 017 ug/dL ed 14:19 Unsatur = 237 118-369 complet ated 017 ug/dL ed iron 14:19 binding capacit y measur Serum = 254 250-450 complet or 017 ug/dL ed plasma 14:19 iron binding capacit y me Vitamin B12 ser/plas (04-04-2017 14:19) Comment: COMMENTS TO BARTENDER MANAGER: use blood drawn from ER if Comment: possible Vitamin 04-04-2 = [phone] complet B12 017 pg/mL ed ser/eliud 14:19 s Comment: Performed at: [facility] Comment: [id number], [place], [place] [phone] Comment: Application Integration Architect: Tian Holt PhD, Phone: [phone] Serum or plasma ferritin measurement (ma (04-04-2017 14:19) Comment: COMMENTS TO BARTENDER MANAGER: use blood drawn from ER if Comment: possible Serum 04-04-2 = 39 8-388 complet or 017 ng/mL ed plasma 14:19 ferriti n measure ment (ma Automated blood reticulocytes count (num (04-04-2017 14:19) Comment: COMMENTS TO BARTENDER MANAGER: use blood drawn from ER if Comment: possible Automat 2 = 4.9 % 0.9-3.2 complet ed 017 ed blood 14:19 reticul ocytes count (num CBC w auto diff (04-04-2017 14:19) Automat 04-04-2 = 0.0 0-0.2 complet ed 017 K/MM3 ed blood 14:19 basophi l count (count/ vo Blood = 13.9 4.8-10. complet leukocy 017 K/MM3 8 ed olya 14:19 count (number /volume ) Automat 2 = 15.6 11.5-17 complet ed 017 % .5 ed erythro 14:19 cyte distrib ution width Red = 2.28 4.2-5.4 complet blood 017 M/mm3 ed cell 14:19 count Blood 2 = 513 142-424 complet platele 017 K/mm3 ed t count 14:19 Automat 2 = 7.3 7.4-10. complet ed 017 fl 4 ed blood 14:19 platele t mean volume karsten Davis % = 5.4 % 1.7-9.3 complet 017 ed 14:19 Absolut 2 = 0.8 0.1-1.0 complet e 017 K/mm3 ed monocyt 14:19 e count Automat = 88.5 82.2-97 complet ed 017 fl .8 ed erythro 14:19 cyte mean corpusc ular v Automat = 30.8 31.8-35 complet ed 017 g/dl .4 ed erythro 14:19 cyte mean corpusc ular h Mean = 27.2 27-31.2 complet corpusc 017 pg ed ular 14:19 hemoglo bin (MCH) determ Lymphoc = 9.6 % 10-50.0 complet yte 017 ed count, 14:19 blood, automat ed Absolut = 1.3 0.7-4.5 complet e 017 K/mm3 ed lymphoc 14:19 yte count Blood = 6.2 12.2-16 complet hemoglo 017 g/dL .2 ed bin 14:19 measure ment (mass/v olum Comment: CRITICAL RESULTS Comment: RESULTS CALLED TO: TONYA.EAL 04/04/17 1507 Lilia Burton Blood = 20.2 37.0-47 complet hematoc 017 % .0 ed rit 14:19 (volume fractio n) Comment: CRITICAL RESULTS Comment: RESULTS CALLED TO: TONYA.EAL 04/04/17 1508 Lilia Burton Granulo = 84.7 37.0-80 complet cyte 017 % .0 ed percent 14:19 age Blood = 11.8 1.8-7.8 complet granulo 017 K/mm3 ed cytes 14:19 automat ed count (numb Automat = 0.1 % 0.1-12. complet ed 017 0 ed blood 14:19 eosinop hils/10 0 leukocy t Automat = 0.0 0.0-0.4 complet ed 017 K/mm3 ed blood 14:19 eosinop hil count Baso % = 0.2 % 0.1-2.0 complet 017 ed 14:19 Cardiac enzymes (04-04-2017 14:19) Serum 04-04-2 = 0.04 0.00-0. complet or 017 ng/mL 06 ed plasma 14:19 troponi n i.cardi ac measu Serum = 17 26-192 complet or 017 U/L ed plasma 14:19 creatin e kinase measure m Serum = 1.8 0.0-3.6 complet or 017 ng/mL ed plasma 14:19 creatin e kinase MB measu Serum = 10.6 0-4.0 complet or 017 U/L ed plasma 14:19 creatin e kinase MB (CK-M Lipase measurement (04-04-2017 14:19) Lipase = 220 73-393 complet measure 017 U/L ed ment 14:19 Comprehensive metabolic panel (04-04-2017 14:19) Protein = 6.0 6.4-8.2 complet total 017 gm/dL ed ser/eliud 14:19 s ALT = 7 U/L 12-78 complet (SGPT) 017 ed ser/eliud 14:19 s Serum 2 = 10 15-37 complet or 017 U/L ed plasma 14:19 asparta te aminotr ansfera Serum = 140 136-145 complet sodium 017 mmoL/L ed measure 14:19 ment Serum = 3.8 3.5-5.1 complet potassi 017 mmoL/L ed um 14:19 measure ment Serum = 137 74-106 complet or 017 mg/dL ed plasma 14:19 glucose measure ment (mas Serum = 3.6 1.3-3.2 complet globuli 017 gm/dL ed n 14:19 measure ment (mass/v olume) Estimat = 30 59- complet ed 017 ML/MIN ed glomeru 14:19 lar filtrat ion rate (GF Comment: REFERENCE RANGE: >60 ML/MIN/1.73 SQUARE METERS Comment: If this patient is -Kyrgyz, then multiply the Comment: result by 1.210. Estimat = 32 50-200 complet ion of 017 ML/MIN ed creatin 14:19 ine renal clearan ce Serum 04-04-2 = 1.6 0.55-1. complet or 017 mg/dL 02 ed plasma 14:19 creatin ine measure ment ( Carbon 04-04-2 = 24 21.0-32 complet dioxide 017 mmoL/L .0 ed 14:19 measure ment Serum 04-04-2 = 106 98-107 complet or 017 mmoL/L ed plasma 14:19 chlorid e measure ment (mo Serum 04-04-2 = 8.8 8.5-10. complet or 017 mg/dL 1 ed plasma 14:19 calcium measure ment (mas Serum 04-04-2 = 66 7-18 complet or 017 mg/dL ed plasma 14:19 urea nitroge n measure men Serum 04-04-2 = 0.3 0.2-1.0 complet or 017 mg/dL ed plasma 14:19 total bilirub in measure m Serum = 90 46-116 complet or 017 U/L ed plasma 14:19 alkalin e phospha tase karsten Serum 2 = 2.4 3.4-5.0 complet or 017 gm/dL ed plasma 14:19 albumin measure ment (mas Serum 04-04-2 = 0.7 1.1-1.8 complet or 017 ed plasma 14:19 albumin /globul in mass ra Activated partial thromboplastin time (a (04-04-2017 14:14) Comment: IS PATIENT ON ANTICOAGULANTS? N Activat 2 = 19.4 23.6-34 complet ed 017 SECONDS .0 ed partial 14:14 thrombo plastin time (a Whole blood INR measurement (04-04-2017 14:14) Comment: IS PATIENT ON ANTICOAGULANTS? N Prothro 04-04-2 = 11.5 9.4-11. complet mbin 017 SECONDS 8 ed time 14:14 (PT) in platele t poor p Whole 04-04-2 = 1.06 0.9-1.1 complet blood 017 ed INR 14:14 measure ment Comment: INDICATION INR RANGE Comment: Comment: THERAPY FOR DVT, PE, ATRIAL FIB; 2.0 - 3.0 Comment: PROPHYLAXIS FOR VTE Comment: Comment: THERAPY FOR MECHANICAL HEART 2.5 - 3.5 Comment: VALVE; PREVENTION OF SYSTEMIC Comment: EMBOLISM SECONDARY TO AMI Influenza A and B virus antigen assay [...] ng/mL ed plasma 06:54 folate measure ment ([facility] Comment: Comment: A serum folate concentration of [...] ed ser/eliud 06:54 s Comment: Performed at: [facility] Comment: [id number], [place] [id number] Comment: Application Integration Architect: Tian Holt PhD, Phone: [phone] Serum or plasma ferritin measurement (ma (03-14-2017 [...] SQUARE METERS Comment: If this patient is -Kyrgyz, then multiply the Comment: result by 1.210. [...] blood 06:54 platele t mean volume karsten [place] % = 9.2 % 1.7-9.3 complet 017 [...] blood 06:54 basophi l count (count/ vo CBC w auto diff (03-13-2017 12:34) Automat [...] 017 K/mm3 ed monocyt 12:34 e count Davis % = 8.3 % 1.7-9.3 complet 017 ed 12:34 Automat = 9.1 7.4-10. complet ed 017 fl 4 ed blood 12:34 platele t mean volume karsten Blood = 214 142-424 complet platele 017 K/mm3 ed t count 12:34 Red = 3.03 4.2-5.4 complet blood 017 M/mm3 ed cell 12:34 count Comprehensive metabolic panel (03-13-2017 12:34) Protein = [...] SQUARE METERS Comment: If this patient is -[place]yrgy[place], then multiply the Comment: result by 1.210. [...] plasma 12:34 creatin e kinase MB (CK-M Urinalysis dipstick W Reflex Microscopic panel in [...]
--- OUTSIDE RECORDS SUMMARY | 2017-04-30 15:24 | External Medical Summary Rpt | CCD ---
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 [...] blood 06:34 platele t mean volume karsten [place] % = 7.3 % 1.7-9.3 complet 017 [...] SQUARE METERS Comment: If this patient is -Maltese, then multiply the Comment: result by 1.210. [...] blood 06:12 platele t mean volume karsten [place] % = 7.5 % 1.7-9.3 complet 017 [...] SQUARE METERS Comment: If this patient is -Maltese, then multiply the Comment: result by 1.210. [...] blood 06:20 platele t mean volume karsten [place] % = 8.1 % 1.7-9.3 complet 017 [...] Comment: BLOOD UNIT # : [id number] RELEASED 04/06/17 Comment: Buddy Comer Comment: Comment: [...] blood 07:11 platele t mean volume karsten [place] % = 6.9 % 1.7-9.3 complet 017 [...] 08:07) Comment: SAMPLES DRAWN LATE DUE TO FIRE ENGINE OPERATOR BREAK DOWNS Serum = 145 136-145 complet [...] SQUARE METERS Comment: If this patient is -Maltese, then multiply the Comment: result by 1.210. [...] 08:00) Comment: SAMPLES DRAWN LATE DUE TO FIRE ENGINE OPERATOR BREAKDOWNS Blood = 100 complet total 017 [...] 08:00) Comment: SAMPLES DRAWN LATE DUE TO FIRE ENGINE OPERATOR BREAKDOWNS Blood = 15.3 4.8-10. complet leukocy [...] blood 08:00 platele t mean volume karsten [place] % = 5.9 % 1.7-9.3 complet 017 [...] Comment: BLOOD UNIT # : [id number] RELEASED 04/04/17 Comment: Ingrid Sun Blood product special preparation [Type] (04-04-2017 22:15) Blood BLOOD complet product 017 UNIT ed 22:15 RELEASE special prepara tion [Type] Leukocyte reduction of packed red blood (04-04-2017 17:42) Leukocy BLOOD complet te 017 UNIT ed reducti 17:42 RELEASE on of BLOOD packed UNIT red RELEASE blood L Comment: BLOOD UNIT # : [id number] RELEASED A POS Comment: 04/04/17 Comment: Ragini [...] and TIBC (04-04-2017 14:19) Comment: COMMENTS TO DRIER TENDER NAPHTHALENE: use blood drawn from ER if Comment: possible Serum = 7 % 15-55 complet or 017 ed plasma 14:19 iron saturat ion measure m Comment: Performed at: - [facility] Comment: [id number], [place] [id number] Comment: Production Inspector: Tian Holt PhD, Phone: [phone] Iron, = 17 27-139 complet serum 017 ug/dL ed 14:19 Unsatur = 237 118-369 complet ated 017 ug/dL ed iron 14:19 binding capacit y measur Serum = 254 250-450 complet or 017 ug/dL ed plasma 14:19 iron binding capacit y me Vitamin B12 ser/plas (04-04-2017 14:19) Comment: COMMENTS TO DRIER TENDER NAPHTHALENE: use blood drawn from ER if Comment: possible Vitamin 04-04-2 = 519 211-946 complet B12 017 pg/mL ed ser/eliud 14:19 s Comment: Performed at: [facility] Comment: [id number] [facility], [place], [place] [id number] Comment: Production Inspector: Tian Holt PhD, Phone: [phone] Serum or plasma ferritin measurement (ma (04-04-2017 14:19) Comment: COMMENTS TO DRIER TENDER NAPHTHALENE: use blood drawn from ER if Comment: possible Serum 04-04-2 = 39 8-388 complet or 017 ng/mL ed plasma 14:19 ferriti n measure ment (ma Automated blood reticulocytes count (num (04-04-2017 14:19) Comment: COMMENTS TO DRIER TENDER NAPHTHALENE: use blood drawn from ER if Comment: [...] blood 14:19 platele t mean volume karsten [place] % = 5.4 % 1.7-9.3 complet 017 [...] SQUARE METERS Comment: If this patient is -Maltese, then multiply the Comment: result by 1.210. [...] ng/mL ed plasma 06:54 folate measure ment ([facility] Comment: Comment: A serum folate concentration of [...] ed ser/eliud 06:54 s Comment: Performed at: [facility] Comment: [id number] [place], [place] [id number] Comment: Production Inspector: Tian Holt PhD, Phone: [phone] Serum or plasma ferritin measurement (ma (03-14-2017 [...] SQUARE METERS Comment: If this patient is -Maltese, then multiply the Comment: result by 1.210. [...] blood 06:54 platele t mean volume karsten [place] % = 9.2 % 1.7-9.3 complet 017 [...] 017 K/mm3 ed monocyt 12:34 e count [place] % = 8.3 % 1.7-9.3 complet 017 [...] SQUARE METERS Comment: If this patient is -Maltese, then multiply the Comment: result by 1.210. [...]
--- OUTSIDE RECORDS SUMMARY | 2017-04-30 15:25 | External Medical Summary Rpt | CCD ---
Author Author [facility] Organization [facility] Address Unknown Phone Unavailable Purpose Continuity of Care Document - through 2016
--- OUTSIDE RECORDS SUMMARY | 2017-04-30 15:25 | External Medical Summary Rpt | CCD ---
Demographics Preferred Language Persian Marital Status Unknown Mormon Affiliation Unknown Race Unknown Ethnic Group Unknown Author Author , VIRGINIA COLEMAN Address Unknown Phone Immunization Unable to retrieve immunization data due to connection failure with Immunization Registry. Please try again later.
--- OUTSIDE RECORDS SUMMARY | 2017-04-30 15:25 | External Medical Summary Rpt | CCD ---
Demographics Preferred Language Slovenian Marital Status Unknown Samaritan Affiliation Unknown Race Unknown Ethnic Group Unknown Author Author , VIRGINIA COLEMAN Address Unknown Phone Immunization Unable to retrieve immunization data due to connection failure with Immunization Registry. Please try again later.
--- OUTSIDE RECORDS SUMMARY | 2017-04-30 15:29 | External Medical Summary Rpt ---
Author Author [employer], [employer] [facility] Address Unknown Phone Unavailable Results CBC W Auto Differential panel in Blood Observa Value Referen Units Interpr Notes Date tion ce etation Range Basophils 0 - 0.2 K/MM3 Normal No Apr 30 informati 2016 9:00 [#/volume on in AM ] in source Blood by data Automated count Basophils 0.1 - 2.0 % Normal No Apr 30 / informati 2016 9:00 leukocyte on in AM s in source Blood by data Automated count Eosinophi 0.0 - 0.4 K/mm3 Normal No Apr 30 ls informati 2016 9:00 [#/volume on in AM ] in source Blood by data Automated count Eosinophi 0.1 - % Normal No Apr 30 ls/100 12.0 informati 2016 9:00 leukocyte on in AM s in source Blood by data Automated count Granulocy 1.8 - 7.8 K/mm3 Normal No Apr 30 olya informati 2016 9:00 [#/volume on in AM ] in source Blood by data Automated count Granulocy 37.0 - % Normal No Apr 30 olya/100 80.0 informati 2016 9:00 leukocyte on in AM s in source Blood by data Automated count Hematocri 37.0 - % Low No Apr 30 t [Volume 47.0 informati 2016 9:00 on in AM Fraction] source of Blood data Hemoglobi 12.2 - g/dL Low No Apr 30 n 16.2 informati 2016 9:00 [Mass/vol on in AM ume] in source Blood data Lymphocyt 0.7 - 4.5 K/mm3 Normal No Apr 30 es informati 2016 9:00 [#/volume on in AM ] in source Unspecifi data ed specimen by Automated count Lymphocyt 10 - 50.0 % Normal No Apr 30 es informati 2016 9:00 [#/volume on in AM ] in source Unspecifi data ed specimen by Automated count Erythrocy 27 - 31.2 pg Normal No Apr 30 te mean informati 2016 9:00 corpuscul on in AM ar source hemoglobi data n [Entitic mass] Erythrocy 31.8 - g/dl Normal No Apr 30 te mean 35.4 inform2016 9:00 corpuscul on in AM ar source hemoglobi data n concentra tion [Mass/vol ume] by Automated count Erythrocy 82.2 - fl Normal Apr 30 te mean 97.8 2016 9:00 corpuscul on in AM ar volume source [Entitic data volume] by Automated count Monocytes 0.1 - 1.0 K/mm3 Normal No Apr 302016 9:00 [#/volume on in AM ] in source Blood by data Automated count Monocytes 1.7 - 9.3 % Normal No Apr 30 informati 2016 9:00 leukocyte on in AM s in source Blood by data Automated count Platelet 7.4 - fl Normal Apr 30 mean 10.4 2016 9:00 volume on in AM [Entitic source volume] data in Blood by Automated count Platelets 142 - 424 K/mm3 Normal No Apr 302016 9:00 [#/volume on in AM ] in source Blood data Erythrocy 4.2 - 5.4 M/mm3 Low No Apr 30 olya informati 2016 9:00 [#/volume on in AM ] in source Amniotic data fluid Erythrocy 11.5 - % High No Apr 30 te 17.5 ati 2016 9:00 distribut on in AM ion width source [Entitic data volume] by Automated count Leukocyte 4.8 - K/MM3 Normal No Apr 30 s 10.8 ati 2016 9:00 [#/volume on in AM ] in source Blood data CBC W Auto Differential panel in Blood Observa Value Referen Units Interpr Notes Date tion ce etation Range Basophils 0 - 0.2 K/MM3 Normal No Apr 282016 [#/volume on in ] in source Blood by data Automated count Basophils 0.1 - 2.0 % Normal No Apr 28 inform2016 leukocyte on in s in source Blood by data Automated count Eosinophi 0.0 - 0.4 K/mm3 Normal No Apr 282016 [#/volume on in ] in source Blood by data Automated count Eosinophi 0.1 - % Normal No Apr 28100 12.0 inform2016 leukocyte on in s in source Blood by data Automated count Granulocy 1.8 - 7.8 K/mm3 Normal No Apr 282016 [#/volume on in ] in source Blood by data Automated count Granulocy 37.0 - % Normal No Apr 28/100 80.0 inform2016 leukocyte on in s in source Blood by data Automated count Hematocri 37.0 - % Low Apr 28 t [Volume 47.0 informati 2016 on in Fraction] source of Blood data Hemoglobi 12.2 - g/dL Low Apr 28 n 16.2 2016 [Mass/vol on in ume] in source Blood data Lymphocyt 0.7 - 4.5 K/mm3 Normal No Apr 28 es 2016 [#/volume on in ] in source Unspecifi data ed specimen by Automated count Lymphocyt 10 - 50.0 % Normal Apr 282016 [#/volume on in ] in source Unspecifi data ed specimen by Automated count Erythrocy 27 - 31.2 pg Normal Apr 28 te mean 2016 corpuscul on in ar source hemoglobi data n [Entitic mass] Erythrocy 31.8 - g/dl Normal Apr 28 te mean 35.4 2016 corpuscul on in ar source hemoglobi data n concentra tion [Mass/vol ume] by Automated count Erythrocy 82.2 - fl Normal Apr 28 te mean 97.8 2016 corpuscul on in ar volume source [Entitic data volume] by Automated count Monocytes 0.1 - 1.0 K/mm3 Normal Apr 282016 [#/volume on in ] in source Blood by data Automated count Monocytes 1.7 - 9.3 % High No Apr 28 /100 inform2016 leukocyte on in s in source Blood by data Automated count Platelet 7.4 - fl Normal Apr 28 mean 10.4 2016 volume on in [Entitic source volume] data in Blood by Automated count Platelets 142 - 424 K/mm3 Normal Apr 282016 [#/volume on in ] in source Blood data Erythrocy 4.2 - 5.4 M/mm3 Low No Apr 28 olya 2016 [#/volume on in ] in source Amniotic data fluid Erythrocy 11.5 - % High Apr 28 te 17.5 2016 distribut on in ion width source [Entitic data volume] by Automated count Leukocyte 4.8 - K/MM3 Normal No Nov 23 s 10.8 informati 2017 [#/volume on in ] in source Blood data DIARRHEA PANEL,PCR Observa Value Referen Units Interpr Notes Date tion ce etation Range Adenovi NOT NOT No No No Nov 5 daphnie DETECTE DETECTE informa informa informa 2017 40+41 D tion in tion in tion in 1:00 AM Ag source source source [Presen data data data ce] in Stool Aeromon NOT NOT No No No Nov 5 as DETECTE DETECTE informa informa informa 2017 salmoni D tion in tion in tion in 1:00 AM maine source source source [Presen data data data ce] in Unspeci fied specime n Astrovi NOT NOT No No No Nov 5 daphnie DETECTE DETECTE informa informa informa 2017 [Presen D tion in tion in tion in 1:00 AM ce] in source source source Stool data data data by Electro n microsc opy Campylo NOT NOT No No No Nov 5 bacter DETECTE DETECTE informa informa informa 2017 sp Ab D tion in tion in tion in 1:00 AM [Presen source source source ce] in data data data Serum Clostri DETECTE NOT No Abnorma RESULTS Nov 5 dium D DETECTE informa l CALLED 2017 diffici tion in TO: 1:[address] sherry HESTER A+B [Presen 7 2200 ce] in Luke, Stool Ozzie Cryptos NOT NOT No No No Nov 5 poridiu DETECTE DETECTE informa informa informa 2017 m sp Ag D tion in tion in tion in 1:00 AM source source source [Presen data data data ce] in Unspeci fied specime n Cyclosp NOT NOT No No No Nov 5 ora DETECTE DETECTE informa informa informa 2017 cayetan D tion in tion in tion in 1:00 AM obed source source source [Presen data data data ce] in Unspeci fied specime n Escheri NOT NOT No No No Nov 5 cezar DETECTE DETECTE informa informa informa 2017 coli D tion in tion in tion in 1:00 AM [Presen source source source ce] in data data data Unspeci fied specime n by Culture FDA method Escheri NOT NOT No No No Nov 5 cezar DETECTE DETECTE informa informa informa 2017 coli D tion in tion in tion in 1:00 AM [Presen source source source ce] in data data data Unspeci fied specime n by Culture FDA method Escheri NOT NOT No No No Nov 5 cezar DETECTE DETECTE informa informa informa 2017 coli D tion in tion in tion in 1:00 AM Shiga-l source source source gaby data data data toxin 1 assa Escheri NOT NOT No No No Nov 5 cezar DETECTE DETECTE informa informa informa 2017 coli D tion in tion in tion in 1:00 AM [id number]:[id number] source source source data data data [Presen ce] in Stool by Organis m specifi c culture Entamoe NOT NOT No No No Nov 5 ba DETECTE DETECTE informa informa informa 2017 histoly D tion in tion in tion in 1:00 AM rudolph source source source [Presen data data data ce] in Stool by Trichro me stain Giardia NOT NOT No No No Nov 5 DETECTE DETECTE informa informa informa 2016 lamblia D tion in tion in tion in 1:00 AM Ag source source source [Presen data data data ce] in Stool Norovir NOT NOT No No No Nov 5 us Ag DETECTE DETECTE informa informa informa 2016 [Presen D tion in tion in tion in 1:00 AM ce] in source source source Stool data data data Stool NOT NOT No No No Nov 5 Plesiom DETECTE DETECTE informa informa informa 2017 onas D tion in tion in tion in 1:00 AM shigell source source source oides data data data DNA detec Rotavir NOT NOT No No No Nov 5 us RNA DETECTE DETECTE informa informa informa 2017 detecti D tion in tion in tion in 1:00 AM on by source source source probe data data data and tar Salmone NOT NOT No No No Nov 5 lla sp DETECTE DETECTE informa informa informa 2017 DNA D tion in tion in tion in 1:00 AM [Identi source source source fier] data data data in Unspeci fied specime n by Probe & target amplifi cation method Caliciv NOT NOT No No No Nov 5 irus DETECTE DETECTE informa informa informa 2017 [Identi D tion in tion in tion in 1:00 AM fier] source source source in data data data Stool by Electro n microsc opy Escheri NOT NOT No No No Nov 5 cezar DETECTE DETECTE informa informa informa 2017 coli D tion in tion in tion in 1:00 AM [Presen source source source ce] in data data data Unspeci fied specime n by Culture FDA method Escheri NOT NOT No No No Nov 5 cezar DETECTE DETECTE informa informa informa 2017 coli D tion in tion in tion in 1:00 AM SXT source source source gene+H7 data data data gene [Identi fier] in Unspeci fied specime n by Probe & target amplifi cation method Vibrio NOT NOT No No No Nov 5 cholera DETECTE DETECTE informa informa informa 2017 e DNA D tion in tion in tion in 1:00 AM [Presen source source source ce] in data data data Unspeci fied specime n by Probe & target amplifi cation method Vibrio NOT NOT No No No Nov 5 sp DNA DETECTE DETECTE informa informa informa 2017 [Identi D tion in tion in tion in 1:00 AM fier] source source source in data data data Unspeci fied specime n by Probe & target amplifi cation method Vibrio NOT NOT No No No Nov 5 sp DETECTE DETECTE informa informa informa 2017 identif D tion in tion in tion in 1:00 AM ied in source source source Stool data data data by Organis m specifi c culture Digoxin [Mass/volume] in Serum or Plasma Observa Value Referen Units Interpr Notes Date tion ce etation Range Digoxin 1.15 - ng/mL Low No Nov 4 [Mass/vol 2.56 informati 2017 6:34 ume] in on in AM Serum or source Plasma data Basic metabolic panel in Blood Observa Value Referen Units Interpr Notes Date tion ce etation Range Urea 7 - 18 mg/dL No No Nov 4 nitrogen informati informati 2017 6:34 [Mass/vol on in on in AM ume] in source source Serum or data data Plasma Calcium 8.5 - mg/dL Low No Apr 4 [Mass/vol 10.1 informati 2016 6:34 ume] in on in AM Serum or source Plasma data Chloride 98 - 107 mmoL/L Normal No Apr 4 [Moles/vo informati 2016 6:34 lume] in on in AM Serum or source Plasma data Carbon 21.0 - mmoL/L Low No Apr 09 dioxide, 32.0 informati 2016 6:34 total on in AM [Moles/vo source lume] in data Serum or Plasma Creatinin 0.55 - mg/dL Normal No Apr 4 e 1.02 informati 2016 6:34 [Mass/vol on in AM ume] in source Serum or data Plasma Creatinin 50 - 200 ML/MIN Low No Apr 09 e renal informati 2017 6:34 clearance on in AM source predicted data by Cockcroft -Gault formula Estimated 59- ML/MIN No REFERENCE Apr 09 informati RANGE: 2017 6:34 glomerula on in >60 AM r source ML/MIN/1. filtratio data 73 SQUARE n rate METERSIf (GF this patient is -A merican, then multiply theresult by 1.210. Glucose 74 - 106 mg/dL Normal No Apr 09 [Mass/vol informati 2016 6:34 ume] in on in AM Serum or source Plasma data Potassium 3.5 - 5.1 mmoL/L Low No Apr 09 informati 2016 6:34 [Moles/vo on in AM lume] in source Serum or data Plasma Sodium 136 - 145 mmoL/L Normal No Apr 09 [Moles/vo informati 2016 6:34 lume] in on in AM Serum or source Plasma data CBC W Auto Differential panel in Blood Observa Value Referen Units Interpr Notes Date tion ce etation Range Basophils 0 - 0.2 K/MM3 Normal No Apr 09 informati 2016 6:34 [#/volume on in AM ] in source Blood by data Automated count Basophils 0.1 - 2.0 % Normal No Apr 09 / informati 2017 6:34 leukocyte on in AM s in source Blood by data Automated count Eosinophi 0.0 - 0.4 K/mm3 Normal No Apr 09 ls informati 2016 6:34 [#/volume on in AM ] in source Blood by data Automated count Eosinophi 0.1 - % Normal No Nov 4 ls/100 12.0 informati 2016 6:34 leukocyte on in AM s in source Blood by data Automated count Granulocy 1.8 - 7.8 K/mm3 High No Apr 4 olya informati 2016 6:34 [#/volume on in AM ] in source Blood by data Automated count Granulocy 37.0 - % High No Apr 4 olya/100 80.0 informati 2017 6:34 leukocyte on in AM s in source Blood by data Automated count Hematocri 37.0 - % Low No Apr 4 t [Volume 47.0 informati 2016 6:34 on in AM Fraction] source of Blood data Hemoglobi 12.2 - g/dL Low No Apr 4 n 16.2 informati 2017 6:34 [Mass/vol on in AM ume] in source Blood data Lymphocyt 0.7 - 4.5 K/mm3 Normal No Apr 09 es informati 2016 6:34 [#/volume on in AM ] in source Unspecifi data ed specimen by Automated count Lymphocyt 10 - 50.0 % Low No Apr 09 es informati 2016 6:34 [#/volume on in AM ] in source Unspecifi data ed specimen by Automated count Erythrocy 27 - 31.2 pg Normal No Apr 4 te mean informati 2016 6:34 corpuscul on in AM ar source hemoglobi data n [Entitic mass] Erythrocy 31.8 - g/dl Normal No Apr 09 te mean 35.4 informati 2016 6:34 corpuscul on in AM ar source hemoglobi data n concentra tion [Mass/vol ume] by Automated count Erythrocy 82.2 - fl Normal No Apr 09 te mean 97.8 informati 2016 6:34 corpuscul on in AM ar volume source [Entitic data volume] by Automated count Monocytes 0.1 - 1.0 K/mm3 Normal No Apr 4 informati 2017 6:34 [#/volume on in AM ] in source Blood by data Automated count Monocytes 1.7 - 9.3 % Normal No Apr 4 /100 informati 2017 6:34 leukocyte on in AM s in source Blood by data Automated count Platelet 7.4 - fl Normal No Apr 4 mean 10.4 informati 2017 6:34 volume on in AM [Entitic source volume] data in Blood by Automated count Platelets 142 - 424 K/mm3 Normal No Apr 4 informati 2016 6:34 [#/volume on in AM ] in source Blood data Erythrocy 4.2 - 5.4 M/mm3 Low No Apr 4 olya informati 2017 6:34 [#/volume on in AM ] in source Amniotic data fluid Erythrocy 11.5 - % Normal No Apr 4 te 17.5 informati 2017 6:34 distribut on in AM ion width source [Entitic data volume] by Automated count Leukocyte 4.8 - K/MM3 High No Apr 4 s 10.8 informati 2017 6:34 [#/volume on in AM ] in source Blood data Basic metabolic panel in Blood Observa Value Referen Units Interpr Notes Date tion ce etation Range Urea 7 - 18 mg/dL High No Apr 3 nitrogen informati 2016 6:12 [Mass/vol on in AM ume] in source Serum or data Plasma Calcium 8.5 - mg/dL Low No Apr 3 [Mass/vol 10.1 informati 2017 6:12 ume] in on in AM Serum or source Plasma data Chloride 98 - 107 mmoL/L Normal No Apr 3 [Moles/vo informati 2016 6:12 lume] in on in AM Serum or source Plasma data Carbon 21.0 - mmoL/L Low No Apr 3 dioxide, 32.0 informati 2017 6:12 total on in AM [Moles/vo source lume] in data Serum or Plasma Creatinin 0.55 - mg/dL No No Apr 3 e 1.02 informati informati 2017 6:12 [Mass/vol on in on in AM ume] in source source Serum or data data Plasma Creatinin 50 - 200 ML/MIN Low No Apr 3 e renal informati 2017 6:12 clearance on in AM source predicted data by Cockcroft -Gault formula Estimated 59- ML/MIN No REFERENCE Nov 3 informati RANGE: 2017 6:12 glomerula on in >60 AM r source ML/MIN/1. filtratio data 73 SQUARE n rate METERSIf (GF this patient is -A merican, then multiply theresult by 1.210. Glucose 74 - 106 mg/dL Normal No Apr 3 [Mass/vol informati 2016 6:12 ume] in on in AM Serum or source Plasma data Potassium 3.5 - 5.1 mmoL/L Normal No Apr 3 informati 2016 6:12 [Moles/vo on in AM lume] in source Serum or data Plasma Sodium 136 - 145 mmoL/L Normal No Nov 3 [Moles/vo informati 2017 6:12 lume] in on in AM Serum or source Plasma data CBC W Auto Differential panel in Blood Observa Value Referen Units Interpr Notes Date tion ce etation Range Basophils 0 - 0.2 K/MM3 Normal No Nov 3 informati 2017 6:12 [#/volume on in AM ] in source Blood by data Automated count Basophils 0.1 - 2.0 % Normal No Nov 3 /100 informati 2017 6:12 leukocyte on in AM s in source Blood by data Automated count Eosinophi 0.0 - 0.4 K/mm3 Normal No Nov 3 ls informati 2017 6:12 [#/volume on in AM ] in source Blood by data Automated count Eosinophi 0.1 - % Normal No Nov 3 ls/100 12.0 informati 2017 6:12 leukocyte on in AM s in source Blood by data Automated count Granulocy 1.8 - 7.8 K/mm3 High No Nov 3 olya informati 2017 6:12 [#/volume on in AM ] in source Blood by data Automated count Granulocy 37.0 - % High No Nov 3 olya/100 80.0 informati 2017 6:12 leukocyte on in AM s in source Blood by data Automated count Hematocri 37.0 - % Low No Nov 3 t [Volume 47.0 informati 2017 6:12 on in AM Fraction] source of Blood data Hemoglobi 12.2 - g/dL Low No Nov 3 n 16.2 informati 2017 6:12 [Mass/vol on in AM ume] in source Blood data Lymphocyt 0.7 - 4.5 K/mm3 Normal No Nov 3 es informati 2017 6:12 [#/volume on in AM ] in source Unspecifi data ed specimen by Automated count Lymphocyt 10 - 50.0 % Low No Nov 3 es informati 2017 6:12 [#/volume on in AM ] in source Unspecifi data ed specimen by Automated count Erythrocy 27 - 31.2 pg Normal No Nov 3 te mean informati 2017 6:12 corpuscul on in AM ar source hemoglobi data n [Entitic mass] Erythrocy 31.8 - g/dl Normal No Nov 3 te mean 35.4 informati 2016 6:12 corpuscul on in AM ar source hemoglobi data n concentra tion [Mass/vol ume] by Automated count Erythrocy 82.2 - fl Normal No Nov 3 te mean 97.8 informati 2017 6:12 corpuscul on in AM ar volume source [Entitic data volume] by Automated count Monocytes 0.1 - 1.0 K/mm3 High No Nov 3 informati 2017 6:12 [#/volume on in AM ] in source Blood by data Automated count Monocytes 1.7 - 9.3 % Normal No Nov 3 /100 informati 2017 6:12 leukocyte on in AM s in source Blood by data Automated count Platelet 7.4 - fl Normal No Nov 3 mean 10.4 informati 2017 6:12 volume on in AM [Entitic source volume] data in Blood by Automated count Platelets 142 - 424 K/mm3 Normal No Nov 3 informati 2017 6:12 [#/volume on in AM ] in source Blood data Erythrocy 4.2 - 5.4 M/mm3 Low No Nov 3 olya informati 2017 6:12 [#/volume on in AM ] in source Amniotic data fluid Erythrocy 11.5 - % Normal No Apr 3 te 17.5 informati 2017 6:12 distribut on in AM ion width source [Entitic data volume] by Automated count Leukocyte 4.8 - K/MM3 High No Nov 3 s 10.8 alert informati 2017 6:12 [#/volume on in AM ] in source Blood data Hemoglobin & Hematocrit panel in Blood Observa Value Referen Units Interpr Notes Date tion ce etation Range Hematocri 37.0 - % Low No Nov 2 t [Volume 47.0 informati 2017 2:12 on in PM Fraction] source of Blood data Hemoglobi 12.2 - g/dL Low No Nov 2 n 16.2 informati 2017 2:12 [Mass/vol on in PM ume] in source Blood data CBC W Auto Differential panel in Blood Observa Value Referen Units Interpr Notes Date tion ce etation Range Basophils 0 - 0.2 K/MM3 Normal No Nov 2 informati 2017 6:20 [#/volume on in AM ] in source Blood by data Automated count Basophils 0.1 - 2.0 % Normal No Nov 2 /100 informati 2016 6:20 leukocyte on in AM s in source Blood by data Automated count Eosinophi 0.0 - 0.4 K/mm3 Normal No Nov 2 ls informati 2017 6:20 [#/volume on in AM ] in source Blood by data Automated count Eosinophi 0.1 - % Normal No Nov 2 ls/100 12.0 informati 2017 6:20 leukocyte on in AM s in source Blood by data Automated count Granulocy 1.8 - 7.8 K/mm3 High No Nov 2 olya informati 2017 6:20 [#/volume on in AM ] in source Blood by data Automated count Granulocy 37.0 - % High No Nov 2 olya/100 80.0 informati 2017 6:20 leukocyte on in AM s in source Blood by data Automated count Hematocri 37.0 - % Low No Nov 2 t [Volume 47.0 informati 2017 6:20 on in AM Fraction] source of Blood data Hemoglobi 12.2 - g/dL Low No Nov 2 n 16.2 informati 2017 6:20 [Mass/vol on in AM ume] in source Blood data Lymphocyt 0.7 - 4.5 K/mm3 Normal No Nov 2 es informati 2017 6:20 [#/volume on in AM ] in source Unspecifi data ed specimen by Automated count Lymphocyt 10 - 50.0 % Low No Nov 2 es informati 2017 6:20 [#/volume on in AM ] in source Unspecifi data ed specimen by Automated count Erythrocy 27 - 31.2 pg Normal No Nov 2 te mean informati 2017 6:20 corpuscul on in AM ar source hemoglobi data n [Entitic mass] Erythrocy 31.8 - g/dl Low No Nov 2 te mean 35.4 informati 2017 6:20 corpuscul on in AM ar source hemoglobi data n concentra tion [Mass/vol ume] by Automated count Erythrocy 82.2 - fl Normal No Nov 2 te mean 97.8 informati 2017 6:20 corpuscul on in AM ar volume source [Entitic data volume] by Automated count Monocytes 0.1 - 1.0 K/mm3 High No Nov 2 informati 2017 6:20 [#/volume on in AM ] in source Blood by data Automated count Monocytes 1.7 - 9.3 % Normal No Nov 2 /100 informati 2017 6:20 leukocyte on in AM s in source Blood by data Automated count Platelet 7.4 - fl Normal No Nov 2 mean 10.4 informati 2017 6:20 volume on in AM [Entitic source volume] data in Blood by Automated count Platelets 142 - 424 K/mm3 Normal No Nov 2 informati 2017 6:20 [#/volume on in AM ] in source Blood data Erythrocy 4.2 - 5.4 M/mm3 Low No Nov 2 olya informati 2017 6:20 [#/volume on in AM ] in source Amniotic data fluid Erythrocy 11.5 - % Normal No Nov 2 te 17.5 informati 2017 6:20 distribut on in AM ion width source [Entitic data volume] by Automated count Leukocyte 4.8 - K/MM3 High No Nov 2 s 10.8 alert informati 2017 6:20 [#/volume on in AM ] in source Blood data Differential panel, method unspecified - Observa Value Referen Units Interpr Notes Date tion ce etation Range Acantho 1+ No No No No Nov 2 cytes informa informa informa informa 2016 [Presen tion in tion in tion in tion in 6:20 AM ce] in source source source source Blood data data data data by Light microsc opy Cristela 2+ No No No No Nov 2 cells informa informa informa informa 2016 [Presen tion in tion in tion in tion in 6:20 AM ce] in source source source source Blood data data data data by Light microsc opy Hypochr 1+ No No No No Nov 2 omia informa informa informa informa 2016 [Presen tion in tion in tion in tion in 6:20 AM ce] in source source source source Blood data data data data LYMPH 8 10 - 50 % Low No Nov 2 inform 2017 tion in 6:20 AM source data Monocytes 2 - 9 % Normal No Nov 2 /100 informati 2017 6:20 leukocyte on in AM s in source Blood by data Automated count Platele NORMAL No No No No Nov 2 ts informa informa informa informa 2017 [Presen tion in tion in tion in tion in 6:20 AM ce] in source source source source Blood data data data data by Light microsc opy Neutrophi 42 - 76 % High No Nov 2 ls informati 2017 6:20 [#/volume on in AM ] in source Blood by data Automated count Schisto 2+ No No No No Nov 2 cytes informa informa informa informa 2017 [Presen tion in tion in tion in tion in 6:20 AM ce] in source source source source Blood data data data data by Light microsc opy Cells No #CELLS No No Apr 2 Counted informati informati informati 2016 6:20 Total [#] on in on in on in AM in Blood source source source data data data Basic metabolic panel in Blood Observa Value Referen Units Interpr Notes Date tion ce etation Range Urea 7 - 18 mg/dL High No Apr 2 nitrogen informati 2016 6:20 [Mass/vol on in AM ume] in source Serum or data Plasma Calcium 8.5 - mg/dL Low No Apr 2 [Mass/vol 10.1 informati 2016 6:20 ume] in on in AM Serum or source Plasma data Chloride 98 - 107 mmoL/L Normal No Apr 2 [Moles/vo informati 2016 6:20 lume] in on in AM Serum or source Plasma data Carbon 21.0 - mmoL/L Low No Apr 2 dioxide, 32.0 informati 2016 6:20 total on in AM [Moles/vo source lume] in data Serum or Plasma Creatinin 0.55 - mg/dL High No Apr 2 e 1.02 informati 2016 6:20 [Mass/vol on in AM ume] in source Serum or data Plasma Creatinin 50 - 200 ML/MIN Low No Apr 2 e renal informati 2016 6:20 clearance on in AM source predicted data by Cockcroft -Gault formula Estimated 59- ML/MIN Low REFERENCE Nov 2 RANGE: 2017 6:20 glomerula >60 AM r ML/MIN/1. filtratio 73 SQUARE n rate METERSIf (GF this patient is -A merican, then multiply theresult by 1.210. Glucose 74 - 106 mg/dL Normal No Apr 2 [Mass/vol informati 2016 6:20 ume] in on in AM Serum or source Plasma data Potassium 3.5 - 5.1 mmoL/L Normal No Apr 2 informati 2016 6:20 [Moles/vo on in AM lume] in source Serum or data Plasma Sodium 136 - 145 mmoL/L Low No Apr 2 [Moles/vo informati 2017 6:20 lume] in on in AM Serum or source Plasma data Hemoglobin & Hematocrit panel in Blood Observa Value Referen Units Interpr Notes Date tion ce etation Range Hematocri 37.0 - % Low No Nov 1 t [Volume 47.0 informati 2017 1:45 on in PM Fraction] source of Blood data Hemoglobi 12.2 - g/dL Low No Nov 1 n 16.2 informati 2017 1:45 [Mass/vol on in PM ume] in source Blood data Blood product special preparation [Type] Observa Value Referen Units Interpr Notes Date ti ce etation Range Blood BLOOD No No No BLOOD Nov 1 product UNIT informa informa informa UNIT # 2017 RELEASE tion in tion in tion in : W0382 10:06 special source source source 17 AM data data data [id number] prepara RELEASE tion D [Type] 7Gsantana cunningham,Buddy Nagy POSITIV E CBC W Auto Differential panel in Blood Observa Value Referen Units Interpr Notes Date ti ce etation Range Basophils 0 - 0.2 K/MM3 Normal No Nov 1 informati 2017 7:11 [#/volume on in AM ] in source Blood by data Automated count Basophils 0.1 - 2.0 % Normal No Nov 1 /100 informati 2017 7:11 leukocyte on in AM s in source Blood by data Automated count Eosinophi 0.0 - 0.4 K/mm3 Normal No Nov 1 ls informati 2017 7:11 [#/volume on in AM ] in source Blood by data Automated count Eosinophi 0.1 - % Normal No Nov 1 ls/100 12.0 informati 2017 7:11 leukocyte on in AM s in source Blood by data Automated count Granulocy 1.8 - 7.8 K/mm3 High No Nov 1 olya informati 2016 7:11 [#/volume on in AM ] in source Blood by data Automated count Granulocy 37.0 - % High No Nov 1 olya/100 80.0 informati 2016 7:11 leukocyte on in AM s in source Blood by data Automated count Hematocri 37.0 - % Low No Nov 1 t [Volume 47.0 informati 2016 7:11 on in AM Fraction] source of Blood data Hemoglobi 12.2 - g/dL Low alert Nov 1 n 16.2 2016 7:11 [Mass/vol CRITICAL AM ume] in RESULTS Blood RESU LTS CALLED TO: LITA Regan 04/06/17 0806 Vicente Comer Lymphocyt 0.7 - 4.5 K/mm3 Normal No Nov 1 es informati 2017 7:11 [#/volume on in AM ] in source Unspecifi data ed specimen by Automated count Lymphocyt 10 - 50.0 % Low No Nov 1 es informati 2016 7:11 [#/volume on in AM ] in source Unspecifi data ed specimen by Automated count Erythrocy 27 - 31.2 pg Normal No Nov 1 te mean informati 2017 7:11 corpuscul on in AM ar source hemoglobi data n [Entitic mass] Erythrocy 31.8 - g/dl Low No Nov 1 te mean 35.4 informati 2017 7:11 corpuscul on in AM ar source hemoglobi data n concentra tion [Mass/vol ume] by Automated count Erythrocy 82.2 - fl Normal No Nov 1 te mean 97.8 informati 2017 7:11 corpuscul on in AM ar volume source [Entitic data volume] by Automated count Monocytes 0.1 - 1.0 K/mm3 High No Nov 1 informati 2017 7:11 [#/volume on in AM ] in source Blood by data Automated count Monocytes 1.7 - 9.3 % Normal No Nov 1 /100 informati 2017 7:11 leukocyte on in AM s in source Blood by data Automated count Platelet 7.4 - fl Low No Nov 1 mean 10.4 informati 2017 7:11 volume on in AM [Entitic source volume] data in Blood by Automated count Platelets 142 - 424 K/mm3 Normal No Nov 1 informati 2017 7:11 [#/volume on in AM ] in source Blood data Erythrocy 4.2 - 5.4 M/mm3 Low No Nov 1 olya informati 2017 7:11 [#/volume on in AM ] in source Amniotic data fluid Erythrocy 11.5 - % Normal No Nov 1 te 17.5 informati 2017 7:11 distribut on in AM ion width source [Entitic data volume] by Automated count Leukocyte 4.8 - K/MM3 High No Nov 1 s 10.8 alert informati 2017 7:11 [#/volume on in AM ] in source Blood data Hemoglobin.gastrointestinal [Presence] in Stool Observa Value Referen Units Interpr Notes Date tion ce etation Range Collected by nurse? Y Hold specimen in OE? N Hemoglo POSITIV NEG No No No Apr 05 bin.gas E informa informa informa 2017 trointe tion in tion in tion in 1:55 PM stinal source source source [Presen data data data ce] in Stool --1st specime n Basic metabolic panel in Blood Observa Value Referen Units Interpr Notes Date tion ce etation Range SAMPLES DRAWN LATE DUE TO CYTOLOGIST BREAK DOWNS Urea 7 - 18 mg/dL High No Apr 05 nitrogen informati 2016 8:07 [Mass/vol on in AM ume] in source Serum or data Plasma Calcium 8.5 - mg/dL Normal No Apr 05 [Mass/vol 10.1 informati 2016 8:07 ume] in on in AM Serum or source Plasma data Chloride 98 - 107 mmoL/L High No Apr 05 [Moles/vo informati 2016 8:07 lume] in on in AM Serum or source Plasma data Carbon 21.0 - mmoL/L Normal No Apr 05 dioxide, 32.0 informati 2017 8:07 total on in AM [Moles/vo source lume] in data Serum or Plasma Creatinin 0.55 - mg/dL High No Apr 05 e 1.02 informati 2016 8:07 [Mass/vol on in AM ume] in source Serum or data Plasma Creatinin 50 - 200 ML/MIN Low No Apr 05 e renal informati 2017 8:07 clearance on in AM source predicted data by Cockcroft -Gault formula Estimated 59- ML/MIN Low REFERENCE Apr 05 RANGE: 2017 8:07 glomerula >60 AM r ML/MIN/1. filtratio 73 SQUARE n rate METERSIf (GF this patient is -A merican, then multiply theresult by 1.210. Glucose 74 - 106 mg/dL Normal No Apr 05 [Mass/vol informati 2016 8:07 ume] in on in AM Serum or source Plasma data Potassium 3.5 - 5.1 mmoL/L Normal No Apr 05 informati 2017 8:07 [Moles/vo on in AM lume] in source Serum or data Plasma Sodium 136 - 145 mmoL/L Normal No Apr 05 [Moles/vo informati 2016 8:07 lume] in on in AM Serum or source Plasma data CBC W Auto Differential panel in Blood Observa Value Referen Units Interpr Notes Date tion ce etation Range SAMPLES DRAWN LATE DUE TO CYTOLOGIST BREAKDOWNS Basophils 0 - 0.2 K/MM3 Normal No Apr 05 informati 2016 8:00 [#/volume on in AM ] in source Blood by data Automated count Basophils 0.1 - 2.0 % Normal No Apr 05 /100 informati 2016 8:00 leukocyte on in AM s in source Blood by data Automated count Leukocyte No K/mm3 No No Apr 05 s informati informati informati 2016 8:00 [#/volume on in on in on in AM ] source source source corrected data data data for nucleated erythrocy olya in Blood Eosinophi 0.0 - 0.4 K/mm3 Normal No Apr 05 ls informati 2016 8:00 [#/volume on in AM ] in source Blood by data Automated count Eosinophi 0.1 - % Normal No Apr 05 ls/100 12.0 informati 2016 8:00 leukocyte on in AM s in source Blood by data Automated count Granulocy 1.8 - 7.8 K/mm3 High No Apr 05 olya informati 2016 8:00 [#/volume on in AM ] in source Blood by data Automated count Granulocy 37.0 - % High No Apr 05 olya/100 80.0 informati 2016 8:00 leukocyte on in AM s in source Blood by data Automated count Hematocri 37.0 - % Low No Apr 05 t [Volume 47.0 informati 2016 8:00 on in AM Fraction] source of Blood data Hemoglobi 12.2 - g/dL Low No Apr 05 n 16.2 informati 2016 8:00 [Mass/vol on in AM ume] in source Blood data Lymphocyt 0.7 - 4.5 K/mm3 Normal No Apr 05 es informati 2016 8:00 [#/volume on in AM ] in source Unspecifi data ed specimen by Automated count Lymphocyt 10 - 50.0 % Normal No Apr 05 es informati 2016 8:00 [#/volume on in AM ] in source Unspecifi data ed specimen by Automated count Erythrocy 27 - 31.2 pg Normal No Apr 05 te mean informati 2016 8:00 corpuscul on in AM ar source hemoglobi data n [Entitic mass] Erythrocy 31.8 - g/dl Normal No Apr 05 te mean 35.4 informati 2016 8:00 corpuscul on in AM ar source hemoglobi data n concentra tion [Mass/vol ume] by Automated count Erythrocy 82.2 - fl Normal No Apr 05 te mean 97.8 informati 2016 8:00 corpuscul on in AM ar volume source [Entitic data volume] by Automated count Monocytes 0.1 - 1.0 K/mm3 Normal No Apr 05 informati 2016 8:00 [#/volume on in AM ] in source Blood by data Automated count Monocytes 1.7 - 9.3 % Normal No Apr 05 informati 2016 8:00 leukocyte on in AM s in source Blood by data Automated count Platelet 7.4 - fl Normal No Apr 05 mean 10.4 informati 2016 8:00 volume on in AM [Entitic source volume] data in Blood by Automated count Platelets 142 - 424 K/mm3 Normal No Apr 05 inform2016 8:00 [#/volume on in AM ] in source Blood data Erythrocy 4.2 - 5.4 M/mm3 Low No Apr 05 olya informati 2016 8:00 [#/volume on in AM ] in source Amniotic data fluid Erythrocy 11.5 - % Normal No Apr 05 te 17.5 informati 2016 8:00 distribut on in AM ion width source [Entitic data volume] by Automated count Leukocyte 4.8 - K/MM3 High No Apr 05 s 10.8 informati 2016 8:00 [#/volume on in AM ] in source Blood data Differential panel, method unspecified - Observa Value Referen Units Interpr Notes Date tion ce etation Range SAMPLES DRAWN LATE DUE TO CYTOLOGIST BREAKDOWNS Acantho 1+ No No No No Apr 05 cytes informa informa informa informa 2016 [Presen tion in tion in tion in tion in 8:00 AM ce] in source source source source Blood data data data data by Light microsc opy Hypochr 1+ No No No No Apr 05 omia informa informa informa informa 2016 [Presen tion in tion in tion in tion in 8:00 AM ce] in source source source source Blood data data data data LYMPH 13 10 - 50 % Normal No Apr 05 inform2016 tion in 8:00 AM source data Monocytes 2 - 9 % Normal No Apr 05 informati 2016 8:00 leukocyte on in AM s in source Blood by data Automated count Nucleated 0 - 1 % High No Apr 05 informati 2016 8:00 erythrocy on in AM olya source [#/volume data ] in Blood Ovalocy 1+ No No No No Apr 05 olya informa informa informa informa 2016 [Presen tion in tion in tion in tion in 8:00 AM ce] in source source source source Blood data data data data by Light microsc opy Platele NORMAL No No No No Apr 05 ts informa informa informa informa 2016 [Presen tion in tion in tion in tion in 8:00 AM ce] in source source source source Blood data data data data by Light microsc opy Neutrophi 42 - 76 % High No Apr 05 ls informati 2016 8:00 [#/volume on in AM ] in source Blood by data Automated count Cells No #CELLS No No Apr 05 Counted informati informati informati 2016 8:00 Total [#] on in on in on in AM in Blood source source source data data data Blood product special preparation [Type] Observa Value Referen Units Interpr Notes Date tion ce etation Range Blood BLOOD No No No BLOOD Apr 04 product UNIT informa informa informa UNIT # 2017 RELEASE tion in ti in in : W0382 10:15 special source source source 17 PM data data data [id number] prepara RELEASE tion D [Type] 7[place] Blood product special preparation [Type] Observa Value Referen Units Interpr Notes Date ti ce etation Range Blood BLOOD No No No BLOOD Apr 04 product UNIT informa informa informa UNIT # 2017 RELEASE tion in ti in ti in : W0382 5:42 PM special source source source 17 data data data [id number] prepara RELEASE tion D A [Type] POS03/08 Qui nn,[place] Blood type & Crossmatch panel in Blood Observa Value Referen Units Interpr Notes Date tion ce etation Range Hold? N Transfuse now? 1 UNIT NOW Major COMPAT No No No No Apr 04 crossma informa informa informa informa 2017 tch tion in tion in tion in tion in 3:51 PM [interp source source source source retatio data data data data n] Major COMPAT No No No No Apr 04 crossma informa informa informa informa 2017 tch tion in tion in tion in tion in 3:51 PM [interp source source source source retatio data data data data n] by Immedia te spin Blood type & Crossmatch panel in Blood Observa Value Referen Units Interpr Notes Date tion ce etation Range Blood NEGATIV NEGATIV No No No Apr 04 group E E informa informa informa 2017 antibod tion in tion in tion in 3:51 PM y source source source screen data data data [Presen ce] in Serum or Plasma Rh POSITIV No No No No Apr 04 [Type] E informa informa informa informa 2017 in tion in tion in tion in tion in 3:51 PM Blood source source source source data data data data ABO A No No No TIME Apr 04 group informa informa informa 1625 2017 [Type] tion in tion in tion in 3:51 PM in source source source Blood data data data Blood type & Crossmatch panel in Blood Observa Value Referen Units Interpr Notes Date ti ce etation Range Major COMPAT No No No No Apr 04 crossma informa informa informa informa 2017 tch tion in tion in tion in tion in 3:51 PM [interp source source source source retatio data data data data n] Major COMPAT No No No No Apr 04 crossma informa informa informa informa 2017 tch tion in tion in tion in tion in 3:51 PM [interp source source source source retatio data data data data n] by Immedia te spin Blood type & Crossmatch panel in Blood Observa Value Referen Units Interpr Notes Date ti ce etation Range Major COMPAT No No No No Apr 04 crossma informa informa informa informa 2017 tch tion in tion in tion in tion in 3:51 PM [interp source source source source retatio data data data data n] Major COMPAT No No No No Apr 04 crossma informa informa informa informa 2017 tch tion in tion in tion in tion in 3:51 PM [interp source source source source retatio data data data data n] by Immedia te spin Cobalamin (Vitamin B12) [Mass/volume] in Serum Observa Value Referen Units Interpr Notes Date ti ce etation Range COMMENTS TO ORDER ANALYST: use blood drawn from ER if possible Cobalamin 211 - 946 pg/mL No Performed Apr 04 (Vitamin informati at: CB 2016 2:19 B12) on in - [facility] PM [Mass/vol source ume] in data [id number] [address] [place], [place] [id number] Radio Repairer: Tian Holt PhD, Phone: [phone] Iron and TIBC Observa Value Referen Units Interpr Notes Date ti ce etation Range COMMENTS TO ORDER ANALYST: use blood drawn from ER if possible Iron 250 - 450 ug/dL No No Mar 30 binding informati informati 2017 2:19 capacity on in on in PM [Mass/vol source source ume] in data data Serum or Plasma Iron 118 - 369 ug/dL No No Mar 30 binding informati informati 2017 2:19 capacity. on in on in PM unsaturat source source ed data data [Mass/vol ume] in Serum or Plasma Iron 27 - 139 ug/dL Low No Mar 30 [Mass/vol informati 2017 2:19 ume] in on in PM Serum or source Plasma data Iron 15 - 55 % Low Performed Apr 04 saturatio at: CB 2017 2:19 n [Mass] - [facility] PM in Serum or Plasma [id number] [place], [place] [id number] Radio Repairer: Tian Holt PhD, Phone: [phone] Ferritin [Mass/volume] in Serum or Plasma Observa Value Referen Units Interpr Notes Date ti ce etation Range COMMENTS TO ORDER ANALYST: use blood drawn from ER if possible Ferritin 8 - 388 ng/mL Normal No Mar 30 [Mass/vol informati 2017 2:19 ume] in on in PM Serum or source Plasma data Reticulocytes [#/volume] in Blood by Automated count Observa Value Referen Units Interpr Notes Date tion ce etation Range COMMENTS TO ORDER ANALYST: use blood drawn from ER if possible Reticuloc 0.9 - 3.2 % High No Mar 30 ytes informati 2017 2:19 [#/volume on in PM ] in source Blood by data Automated count CBC W Auto Differential panel in Blood Observa Value Referen Units Interpr Notes Date tion ce etation Range Basophils 0 - 0.2 K/MM3 Normal No Apr 04 informati 2016 2:19 [#/volume on in PM ] in source Blood by data Automated count Basophils 0.1 - 2.0 % Normal No Apr 04 / informati 2016 2:19 leukocyte on in PM [...] RESU LTS CALLED TO: TONYA.EAL 04/04/17 1507 Lilia Burton Lymphocyt 0.7 - 4.5 K/mm3 Normal No Apr 04 es informati 2016 2:19 [#/volume on in PM ] in source Unspecifi data ed specimen by Automated count Lymphocyt 10 - 50.0 % Low No Apr 04 es informati 2016 2:19 [#/volume on in PM ] in source Unspecifi data ed specimen by Automated count Erythrocy 27 - 31.2 pg Normal No Apr 04 te mean informati 2017 2:19 corpuscul on in PM ar source hemoglobi data n [Entitic mass] Erythrocy 31.8 - g/dl Low No Apr 04 te mean 35.4 informati 2016 2:19 corpuscul on in PM ar source hemoglobi data n concentra tion [Mass/vol ume] by Automated count Erythrocy 82.2 - fl Normal No Mar 30 te mean 97.8 informati 2016 2:19 corpuscul on in PM ar volume source [Entitic data volume] by Automated count Monocytes 0.1 - 1.0 K/mm3 Normal No Mar 30 informati 2016 2:19 [#/volume on in PM ] in source Blood by data Automated count Monocytes 1.7 - 9.3 % Normal No Mar 30 /100 informati 2016 2:19 leukocyte on in PM s in source Blood by data Automated count Platelet 7.4 - fl Low No Apr 04 mean 10.4 informati 2016 2:19 volume on in PM [Entitic source volume] data in Blood by Automated count Platelets 142 - 424 K/mm3 High No Apr 04 informati 2016 2:19 [#/volume [...] Creatine 0 - 4.0 U/L High No Apr 04 kinase.MB alert informati 2017 2:19 /Creatine on in PM source kinase.to data sergio [Ratio] in Serum or Plasma Creatine 0.0 - 3.6 ng/mL Normal No Apr 04 kinase.MB informati 2016 2:19 on in PM [Mass/vol source ume] in data Serum or Plasma Creatine 26 - 192 U/L Low No Apr 04 kinase informati 2016 2:19 [Enzymati on in PM c source activity/ data volume] in Serum or Plasma Troponin 0.00 - ng/mL Normal No Oct 30 I.cardiac 0.06 informati 2017 2:19 on in PM [Mass/vol source ume] in data Serum or Plasma Comprehensive metabolic 2000 panel in Serum or Plasma Observa Value Referen Units Interpr Notes Date tion ce etation Range Albumin/G 1.1 - 1.8 No Low No Mar 30 lobulin informati informati 2017 2:19 [Mass on in on in PM ratio] in source source Serum or data data Plasma Albumin 3.4 - 5.0 gm/dL Low No Mar 30 [Mass/vol informati 2017 2:19 ume] in on in PM Serum or source Plasma data Alkaline 46 - 116 U/L Normal No Mar 30 phosphata informati 2017 2:19 se on in PM [Enzymati source c data activity/ volume] in Serum or Plasma Bilirubin 0.2 - 1.0 mg/dL Normal No Mar 30 .total informati 2016 2:19 [Mass/vol on in PM ume] in source Serum or data Plasma Urea 7 - 18 mg/dL High No Mar 30 nitrogen informati 2017 2:19 [Mass/vol on in PM ume] in source Serum or data Plasma Calcium 8.5 - mg/dL Normal No Mar 30 [Mass/vol 10.1 informati 2017 2:19 ume] in on in PM Serum or source Plasma data Chloride 98 - 107 mmoL/L Normal No Mar 30 [Moles/vo informati 2017 2:19 lume] in on in PM Serum or source Plasma data Carbon 21.0 - mmoL/L Normal No Mar 30 dioxide, 32.0 informati 2016 2:19 total on in PM [Moles/vo source lume] in data Serum or Plasma Creatinin 0.55 - mg/dL High No Oct 30 e 1.02 informati 2016 2:19 [Mass/vol on in PM ume] in source Serum or data Plasma Creatinin 50 - 200 ML/MIN Low No Mar 30 e renal informati 2016 2:19 clearance on in PM source predicted data by Cockcroft -Gault formula Estimated 59- ML/MIN Low REFERENCE Oct 30 RANGE: 2017 2:19 glomerula >60 PM r ML/MIN/1. filtratio 73 SQUARE n rate METERSIf (GF this patient is -A merican, then multiply theresult by 1.210. Globulin 1.3 - 3.2 gm/dL High No Oct 30 [Mass/vol informati 2016 2:19 ume] in on in PM Serum source data Glucose 74 - 106 mg/dL High No Apr 04 [Mass/vol informati 2016 2:19 ume] in on in PM Serum or source Plasma data Potassium 3.5 - 5.1 mmoL/L Normal No Apr 042016 2:19 [Moles/vo on in PM lume] in source Serum or data Plasma Sodium 136 - 145 mmoL/L Normal No Apr 04 [Moles/vo 2016 2:19 lume] in on in PM Serum or source Plasma data Aspartate 15 - 37 U/L Low No Apr 042016 2:19 aminotran on in PM sferase source [Enzymati data c activity/ volume] in Serum or Plasma Alanine 12 - 78 U/L Low No Apr 04 aminotran 2016 2:19 sferase on in PM [Enzymati [...] 393 U/L Normal No Apr 04 [Enzymati 2016 2:19 c on in PM activity/ source volume] data in Serum or Plasma INR in Blood by Coagulation assay Observa Value Referen Units Interpr Notes Date tion ce etation Range IS PATIENT ON ANTICOAGULANTS? N INR in 0.9 - 1.1 No Normal INDICATIO Apr 04 Blood by informati N 2016 2:14 Coagulati on in PM on assay source INR data RANGETHER APY FOR DVT, PE, ATRIAL FIB; 2.0 - 3.0PROPHY LAXIS FOR VTETHERAP Y FOR MECHANICA L HEART 2.5 - 3.5VALVE; PREVENTIO N OF SYSTEMICE MBOLISM SECONDARY TO AMI Prothromb 9.4 - SECONDS Normal No Apr 04 in time 11.8 inform2016 2:14 (PT) in on in PM Platelet source poor data plasma by Coagulati on assay Activated partial thrombplastin time (aPTT) in Platelet poor plasma by Coagulation assay Observa Value Referen Units Interpr Notes Date tion ce etation Range IS PATIENT ON ANTICOAGULANTS? N Activated 23.6 - SECONDS Low No Apr 04 partial 34.0 informati 2017 2:14 thrombpla on in PM stin time source (aPTT) data in Platelet poor plasma by Coagulati on assay Influenza virus A+B Ag [Presence] in Unspecified specimen Observa Value Referen Units Interpr Notes Date ti ce etation Range Influen NOT NOT No [...] Interpr Notes Date ti ce etation Range Cobalamin 211 - 946 pg/mL No Performed Mar 14 (Vitamin informati at: CB 2017 6:54 B12) on in - [facility] AM [Mass/vol source ume] in data [place] [id number] Serum [address] [place], [place] [id number] Radio Repairer: Tian Holt PhD, Phone: [phone] Iron and TIBC Observa Value Referen [...] Range Folate >3.0 ng/mL No A serum Oct 9 [Mass/vol informati folate 2017 6:54 ume] in on in concentra AM Serum or source tion of Plasma data less than 3.1 ng/mL isconside red to represent clinical deficienc y. Basic metabolic panel in Blood Observa Value Referen Units Interpr Notes Date tion ce etation Range Urea 7 - 18 mg/dL High No Oct 9 nitrogen informati 2017 6:54 [Mass/vol on in AM ume] in source Serum or data Plasma Calcium 8.5 - mg/dL Normal No Oct 9 [Mass/vol 10.1 informati 2017 6:54 ume] in on in AM Serum or source Plasma data Chloride 98 - 107 mmoL/L Normal No Oct 9 [Moles/vo informati 2017 6:54 lume] in on in AM Serum or source Plasma data Carbon 21.0 - mmoL/L Normal No Oct 9 dioxide, 32.0 informati 2017 6:54 total on in AM [Moles/vo source lume] in data Serum or Plasma Creatinin 0.55 - mg/dL High No Oct 9 e 1.02 informati 2017 6:54 [Mass/vol on in AM [...] Glucose 74 - 106 mg/dL Normal No Oct 9 [Mass/vol informati 2017 6:54 ume] in on in AM Serum or source Plasma data Potassium 3.5 - 5.1 mmoL/L Normal No Oct 9 informati 2017 6:54 [Moles/vo on in AM lume] in source Serum or data Plasma Sodium 136 - 145 mmoL/L Normal No Oct 9 [Moles/vo informati 2017 6:54 lume] in on in AM Serum or source Plasma data Ferritin [Mass/volume] in Serum or Plasma Observa Value Referen Units Interpr Notes Date tion ce etation Range Ferritin 8 - 388 ng/mL Normal No Oct 9 [Mass/vol informati 2016 6:54 ume] in on in AM Serum or source Plasma data CBC W Auto Differential panel in Blood Observa Value Referen Units Interpr Notes Date tion ce etation Range Basophils 0 - 0.2 K/MM3 Normal No Mar 14 informati 2016 6:54 [#/volume on in AM ] in source Blood by data Automated count Basophils 0.1 - 2.0 % Normal No Mar 14 /100 informati 2017 6:54 leukocyte on in [...] Erythrocy 82.2 - fl Normal No Mar 9 te mean 97.8 informati 2016 6:54 corpuscul on in AM ar volume source [Entitic data volume] by Automated count Monocytes 0.1 - 1.0 K/mm3 Normal No Mar 9 informati 2016 6:54 [#/volume on in AM ] in source Blood by data Automated count Monocytes 1.7 - 9.3 % Normal No Mar 9 /100 informati 2016 6:54 leukocyte on in AM s in source Blood by data Automated count Platelet 7.4 - fl Normal No Mar 9 mean 10.4 informati 2016 6:54 volume on in AM [Entitic source volume] data in Blood by Automated count Platelets 142 - 424 K/mm3 Normal No Mar 9 informati 2016 6:54 [#/volume on in AM ] in source Blood data Erythrocy 4.2 - 5.4 M/mm3 Low No Mar 9 olya informati 2016 6:54 [#/volume on in AM ] in source Amniotic data fluid Erythrocy 11.5 - % Normal No Mar 14 te 17.5 informati 2016 6:54 distribut on in AM ion width source [Entitic data volume] by Automated count Leukocyte 4.8 - K/MM3 Normal No Mar 9 s 10.8 informati 2016 6:54 [#/volume on in AM ] in source Blood data Reticulocytes [#/volume] in Blood by Automated count Observa Value Referen Units Interpr Notes Date tion ce etation Range Reticuloc 0.9 - 3.2 % Normal No Mar 9 ytes ati 2016 6:54 [#/volume on in AM ] [...] Albumin/G 1.1 - 1.8 No Low No Oct 8 lobulin informati informati 2017 [Mass on in on in 12:34 PM ratio] in source source Serum or data data Plasma Albumin 3.4 - 5.0 gm/dL Low No Oct 8 [Mass/vol informati 2016 ume] [...] mg/dL High No Oct 8 nitrogen informati 2016 [Mass/vol on in 12:34 PM ume] in source Serum or data Plasma Calcium 8.5 - mg/dL Normal No Oct 8 [Mass/vol 10.1 informati 2016 ume] in on in 12:34 [...] Glucose 74 - 106 mg/dL High No Mar 8 [Mass/vol informati 2016 ume] in on in 12:34 PM Serum or source Plasma data Potassium 3.5 - 5.1 mmoL/L Normal No Mar [id number] [Moles/vo on in 12:34 PM lume] in source Serum or data Plasma Sodium 136 - 145 mmoL/L Normal No Mar 13 [Moles/vo informati 2016 lume] in on in 12:34 PM [...] 8.2 gm/dL Low No Mar 13 [Mass/vol informati 2016 ume] in on in [...] g/dL Low No Mar 13 n 16.2 informati 2016 [Mass/vol on in 12:34 PM ume] in source Blood data Lymphocyt 0.7 - 4.5 K/mm3 Normal No Mar 13 es inform2016 [#/volume on in 12:34 PM ] in source Unspecifi data ed specimen by Automated count Lymphocyt 10 - 50.0 % Low No Mar 13 es inform2016 [#/volume on in 12:34 PM ] in source Unspecifi data ed specimen by Automated count Erythrocy 27 - 31.2 pg Normal No Mar 13 te mean inform2016 corpuscul on in 12:34 PM ar [...] 0.1 - 1.0 K/mm3 Normal No Mar 132016 [#/volume on in [...] 142 - 424 K/mm3 Normal No Mar 132016 [#/volume on in 12:34 PM ] in source Blood data Erythrocy 4.2 - 5.4 M/mm3 Low No Mar 13 olya informati 2016 [#/volume on in 12:34 PM ] in source Amniotic data fluid Erythrocy 11.5 - % Normal No Mar 13 te 17.5 inform2016 distribut on in 12:34 PM ion width source [Entitic data volume] by Automated count Leukocyte 4.8 - K/MM3 Normal No Mar 13 s 10.8 inform2016 [#/volume on in 12:34 PM ] [...] Date tion ce etation Range COMMENTS TO ORDER ANALYST: PER [place] PROTOCOL Cholester < 200 mg/dL [...] High No Sep 12 clotting alert informati 2016 time in on in 12:11 PM Blood [...] U/L Normal No Sep 12 kinase informati 2016 6:22 [Enzymati on in AM c source activity/ data volume] in Serum or Plasma Troponin 0.00 - ng/mL High Feb 12 I.cardiac 0.06 2016 6:22 CRITICAL AM [...] No Sep 12 te mean 35.4 informati 2016 6:22 corpuscul on in AM ar source hemoglobi data n concentra tion [Mass/vol ume] by Automated count Erythrocy 82.2 - fl Normal No Sep 12 te mean 97.8 informati 2016 6:22 corpuscul on in AM ar volume source [Entitic data volume] by Automated count Monocytes 0.1 - 1.0 K/mm3 Normal No Sep 12 informati 2016 6:22 [#/volume on in AM ] in [...] High No Sep 12 s 10.8 informati 2016 6:22 [#/volume on in AM ] in source Blood data CBC W Auto Differential panel in Blood Observa Value Referen Units Interpr Notes Date tion ce etation Range Basophils 0 - 0.2 K/MM3 Normal No Sep 11 informati 2016 6:30 [#/volume on in PM ] in source Blood by data Automated count Basophils 0.1 - 2.0 % Normal No Sep 11 /100 informati 2016 6:30 leukocyte on in PM s in source Blood by data Automated count Eosinophi 0.0 - 0.4 K/mm3 Normal No Sep 11 ls informati 2016 6:30 [#/volume on in PM ] in source Blood by data Automated count Eosinophi 0.1 - % Normal No Sep 11 ls/100 12.0 informati 2016 6:30 leukocyte on in PM s in source Blood by data Automated count Granulocy 1.8 - 7.8 K/mm3 High No Sep 11 olya informati 2016 6:30 [...] 0 - 4.0 U/L High No Feb 11 kinase.MB alert informati 2016 5:30 /Creatine on in PM source kinase.to data sergio [Ratio] in Serum or Plasma Creatine 0.0 - 3.6 ng/mL High No Feb 11 kinase.MB informati 2016 5:30 on in PM [Mass/vol source ume] in data Serum or Plasma Creatine 26 - 192 U/L Normal No Feb 11 kinase informati 2016 5:30 [Enzymati on in PM c source activity/ data volume] in Serum or Plasma Troponin 0.00 - ng/mL High Feb 14 I.cardiac 0.06 2016 5:30 CRITICAL PM [Mass/vol RESULTS ume] in Serum or RESU Plasma LTS CALLED TO: TONYA.CLA 02/14/17 1812 Jeffery,[place] nda> 0.5 IS CONSISTEN T WITH MYOCARDIA L ISCHEMIA OR INFARCTIO N Lipase [Enzymatic activity/volume] in Serum or Plasma Observa Value Referen Units Interpr Notes Date tion ce etation Range Lipase 73 - 393 U/L Normal No Feb 11 [Enzymati informati 2017 5:30 c on [...] Alkaline 46 - 116 U/L Normal No Feb 11 phosphata informati 2016 5:30 se on [...] Sep 11 cytes E informa informa informa 2016 [Presen tion [...] No Sep 11 of informa informa informa 2016 Urine tion in tion in tion in 5:00 PM source source source data data data Glucose NEG No No No Sep 11 [Mass/vol informati informati informati 2016 5:00 ume] in on [...] informa 2016 [Presen tion in tion in ti in 5:00 PM ce] in source source [...] No Sep 11 gravity 1.030 informati informati 2016 5:00 [...] 7.8 K/mm3 Normal No Jan 23 olya informati 2016 [#/volume on in 11:00 AM ] in source Blood by data Automated count Granulocy 37.0 - % Normal No Jan 23 olya/100 80.0 informati 2016 leukocyte on in 11:00 AM [...] Normal No Jan 23 mean 10.4 informati 2017 volume on in 11:00 AM [Entitic source [...] Normal No Dec 22 ls/100 12.0 informati 2017 6:20 leukocyte on in AM [...] 50.0 % Normal No Dec 21 es 2016 5:00 [#/volume on in PM ] in source Unspecifi data ed specimen by Automated count Erythrocy 27 - 31.2 pg Normal No Dec 21 te mean 2016 5:00 corpuscul on in PM ar source hemoglobi data n [Entitic mass] Erythrocy 31.8 - g/dl Normal No Dec 21 te mean 35.4 2016 5:00 corpuscul on in PM ar source hemoglobi data n concentra tion [Mass/vol ume] by Automated count Erythrocy 82.2 - fl Normal No Dec 21 te mean 97.8 2016 5:00 corpuscul on in PM ar [...] 7.8 K/mm3 Normal No Dec 20 olya informati 2016 [...] Normal No Dec 20 te mean 35.4 inform2016 corpuscul on in 11:55 AM ar [...] 9.3 % Normal No Dec 20 /100 informati 2016 leukocyte on in 11:55 AM s in source Blood by data Automated count Platelet 7.4 - fl Normal No Dec 20 mean 10.4 inform2016 volume on in 11:55 AM [Entitic source [...] 116 U/L Normal No Dec 20 phosphata 2016 se on in 11:55 AM [Enzymati [...] mmoL/L High No Dec 20 [Moles/vo informati 2017 lume] in on in 11:55 AM Serum or source Plasma data Carbon 21.0 - mmoL/L Normal No Dec 20 dioxide, 32.0 informati 2016 total on in 11:55 AM [Moles/vo source lume] in data Serum or Plasma Creatinin 0.55 - mg/dL High No Dec 20 e 1.02 inform2016 [Mass/vol on in 11:55 AM ume] in [...] 3.5 - 5.1 mmoL/L Normal No Dec 202016 [Moles/vo on in 11:55 AM lume] in [...] Dec 20 in E informa informa informa 2017 [Presen [...] No No Dec 20 nogen informa informa 2017 [Presen tion in [...] No No Dec 20 nogen informa informa 2017 [Presen tion in tion in 11:20 ce] in source source AM Urine data data by Test strip
--- OUTSIDE RECORDS SUMMARY | 2017-04-30 15:29 | External Medical Summary Rpt ---
[...] source source 17 AM data data data [id number] prepara RELEASE tion D [Type] 7Gsantana cunningham,Buddy [...] etation Range SAMPLES DRAWN LATE DUE TO MASTER COASTAL WATERS BREAK DOWNS Urea 7 - 18 mg/dL [...] etation Range SAMPLES DRAWN LATE DUE TO MASTER COASTAL WATERS BREAKDOWNS Basophils 0 - 0.2 K/MM3 Normal [...] etation Range SAMPLES DRAWN LATE DUE TO MASTER COASTAL WATERS BREAKDOWNS Acantho 1+ No No No No [...] source source 17 PM data data data [id number] prepara RELEASE tion D [Type] [place] Blood product special preparation [Type] Observa Value Referen Units Interpr Notes Date ti ce etation Range Blood BLOOD No No No BLOOD Apr 04 product UNIT informa informa informa UNIT # 2017 RELEASE tion in ti in ti in : [id number] 5:42 PM special source source source 17 data data data [id number] prepara RELEASE tion D A [Type] POS03/08 [...] Date ti ce etation Range COMMENTS TO INFORMATION TECHNOLOGY INTERN: use blood drawn from ER if possible Cobalamin 211 - 946 pg/mL No Performed Apr 04 (Vitamin informati at: CB 2016 2:19 B12) on in - [facility] PM [Mass/vol source ume] in data [id number] Serum 0 [place], [place] [id number] Outsole Skiver: Tian Holt PhD, Phone: [phone] Iron and TIBC Observa Value Referen Units Interpr Notes Date ti ce etation Range COMMENTS TO INFORMATION TECHNOLOGY INTERN: use blood drawn from ER if possible [...] - [facility] PM in Serum or Plasma [id number] 0 [place], [place] [id number] Outsole Skiver: Tian Holt PhD, Phone: [phone] Ferritin [Mass/volume] in Serum or Plasma Observa Value Referen Units Interpr Notes Date ti ce etation Range COMMENTS TO INFORMATION TECHNOLOGY INTERN: use blood drawn from ER if possible Ferritin 8 - 388 ng/mL Normal No Mar 30 [Mass/vol informati 2017 2:19 ume] in on in PM Serum or source Plasma data Reticulocytes [#/volume] in Blood by Automated count Observa Value Referen Units Interpr Notes Date tion ce etation Range COMMENTS TO INFORMATION TECHNOLOGY INTERN: use blood drawn from ER if possible [...] [facility] AM [Mass/vol source ume] in data [address] [id number] Serum 0 [place], [place] [id number] Outsole Skiver: Tian Holt PhD, Phone: [phone] Iron and TIBC Observa Value Referen [...] Date tion ce etation Range COMMENTS TO INFORMATION TECHNOLOGY INTERN: PER [place] PROTOCOL Cholester < 200 mg/dL No No [...] Plasma LTS CALLED TO: TONYA.CLA 02/14/17 1812 Jeffery,[place] nda> 0.5 IS CONSISTEN T WITH MYOCARDIA [...]
--- NOTE | 2017-04-30 17:05 | HISTORY AND PHYSICAL REPORT ---
Demographics: Admit date: 04/30/17 Chief complaint: Anemia PRIMARY DIAGNOSIS: Anemia due to blood loss Allergies: Coded Allergies: No Known Allergies (03/13/17) History of present illness: History of present illness: 87 year old female with ASHD, CKD, and anemia devloped melana earlier in the week. At that time her dual antiplatelet therapy was discontinued and serial cBC 's were perfomred. Over 48 hours her Hgb dropped from 12 to 8.2. Patient has continued to have melana. Due to apparent ongoing blood loss and anticipated drop in Hgb patient has been admitted for transfusion. Patient had admission at end of March for anemia. At that time UGI was negative for PUD adn patient was placed on carafate and protonix. Patient had stenting of coronary artery in february after NSTEMI. Past medical history: Family HX Family Hx Insignificant No Diabetes No CAD Yes Hypertension Yes Hyperlipidemia Yes Cancer Yes TB No Immunization HX DT/Tetanus Unknown Flu 2016/2017 Pneumonia Received In Past General CAD? Yes Angina: Yes [place]: Yes Hypertension? Yes Hyperlipidemia? Yes CHF? No DVT? No PE? No COPD? No Asthma? No Anemia? No GERD? No Gastric ulcers? No GI Bleed? No Hernia? No Thyroid Problems? No Hypothyroidism? No CVA? No Seizures? No Diabetes? No Renal Insuffiency? No UTI? No Stones? No BPH? No GB Disease: No Nephritic Syndrome? No Asplenia? No Hepatitis? No Sickle Cell Disease? No Arthritis? No Migraines? No Cataracts? No Glaucoma? No MRSA? No HIV? No TB? No Anxiety? No Depression? No Cancer? No More? Yes Additional hx: TREMORS, PARKISONS Past Surgical HX Previous Surgery?Y Coronary Artery Bypass TUBAL LIGATION HYSTERECTOMY CARDIAC STENTS Current home meds: Active Scripts NITROGLYCERIN (Nitrostat) 0.4 MG SL [id number] PRN CHEST PAIN #30 TAB Prov: 12/23/16 Oxazepam 10 MG PO BID #60 CAPSULE Ref 1 Prov: 12/23/16 Carvedilol (Carvedilol 12.5MG) 12.5 MG PO BID #60 TAB Ref 11 Prov: 02/18/17 Aspirin (Aspirin EC 81MG) 81 MG PO DAILY #30 TABLET Ref 11 Prov: 02/18/17 DIGOXIN (Digox) 0.125 MG PO DAILY #30 TAB Ref 11 Prov: 02/18/17 Ticagrelor (Brilinta) 90 MG PO BID #60 TAB Ref 11 Prov: 02/18/17 Gabapentin (Neurontin 300MG) 300 MG PO QHS #30 CAP Prov: 03/15/17 Pantoprazole Sodium (Pantoprazole 40MG) 40 MG PO BID #60 ECT Ref 2 Prov: 04/09/17 Sucralfate (Carafate) 1 GM PO ACHS #120 TAB Ref 2 Prov: 04/09/17 Ferrous Sulfate (Feosol) 325 MG PO DAILY #30 TAB Ref 11 Prov: 04/09/17 Reported Medications POTASSIUM CHL (Potassium Chloride) 40 MEQ PO BID CHOLECALCIFEROL (VITAMIN D3) (Vitamin D-3) 2,000 IU PO DAILY Gabapentin (Gabapentin 300MG) 300 MG PO DAILY Metoclopramide Hcl (Reglan) 5 MG PO AC ATORVASTATIN CALCIUM (ATORVASTATIN 20MG) 20 MG PO QHS Trazodone Hcl (Trazodone HCl) 150 MG PO QHS Levothyroxine Sodium 0.2 MG PO DAILY Furosemide (Furosemide 40MG) 40 MG PO DAILY Social Hx: Smoking HX Tobacco No Alcohol Alcohol: No Hx of Drug Use Drug Use? No Patien't marital status is Patient's support system is good Review of systems: Constitutional weakness. Respiratory no symptoms reported. Cardiovascular no symptoms reported Gastrointestinal/Abdominal nausea Genitourinary no symptoms reported. Musculoskeletal no symptoms reported. Neurological Yes: tremors. Exam: Lab data for last 24 hours: Laboratory Tests 04/30/17 1905: Misc Test Units BLOOD UNIT RELEASE 04/30/17 1705: Antibody Screen NEGATIVE, Miscellaneous Test POSITIVE Admission vital signs: Vital Signs Date Time Temp Pulse Resp B/P Pulse O2 O2 Flow FiO2 Ox Delivery Rate 04/30 171 92 04/30 1716 97.4 92 20 117/92 04/30 1716 94 ROOM AIR 04/30 1716 97.4 92 20 117/92 94 ROOM AIR Exam General appearance: alert, awake, no acute distress Neck: no carotid bruit Cardiovascular: regular rate & rhythm Respiratory: clear to auscultation ABD: soft, no tenderness Plan: Problem List 1. Anemia due to blood loss, acute 2. GI bleed 3. Anemia of chronic disease 4. Ischemic cardiomyopathy Plan: admit for transfusion of 2 units of PRBC's and serial CBC's. Home meds will be ordered except for aspirin and Brillinta at 1931
[2017-04-30] MEDS ORDERED: REGLAN 5MG TABLE5 MG PO (18:40)
[2017-04-30 18:41] LABS: ABO BLOOD TYPE A; RH BLOOD TYPE POSITIVE
[2017-04-30 18:46] LABS: ANTIHUMAN GLOB CROSSMATCH COMPAT
[2017-05-01] VITALS (7 sets, daily range): BP systolic 95–132; BP diastolic 52–69
[2017-05-01 02:12] LABS: HEMOGLOBIN 10.4 g/dL (12.2-16.2)
[2017-05-01 06:23] LABS: HEMOGLOBIN 9.9 g/dL (12.2-16.2); LYMPH # 1.3 K/mm3 (0.7-4.5); LYMPH % 13.5 % (10-50.0)
--- NOTE | 2017-05-01 07:17 | ACUTE CARE PROGRESS NOTE (QUA) ---
Progress Notes Subjective Date 05/01/17 Time 0714 Note Patient rested well overnight. She did have a bowel movement that was described as black and tarry. She continues to deny abdominal pain. Vital signs reviewed. Lungs are clear to auscultation. Heart has a regular rate and rhythm. Abdomen is soft and nontender. H and H noted. Potassium has decreased and will be replaced Check H and H again this afternoon. Transfuse should hemoglobin reached 8 or lower. Continue Carafate, Protonix. Due to ongoing nausea patient will be given Reglan. Soft diet has been ordered but patient may need liquid diet should there be continued evidence of bleeding. Objective Findings Last VS-Temp:97.5 B/P:126/69 Pulse:85 Resp:18 SaO2:98 ROOM AIR Last weight lbs:140 oz:9 K.759 Method:Bed Scales Laboratory Tests 05/01/17 0545: Sodium 137, Potassium 2.9 *L, Chloride 105, Carbon Dioxide 22, BUN 34 H, Creatinine 0.9, Estimated Creat Clear 44 L, Estimated GFR (MDRD) 59, Glucose 101, Calcium 8.5, WBC 9.8, RBC 3.52 L, Hgb 9.9 L, Hct 29.7 L, MCV 84.6, RDW 18.9 H, Plt Count 233, MPV 8.1, Gran % 77.0, Gran # 7.5, Lymphocytes % 13.5, Monocytes % 6.5, Eosinophils % 2.4, Basophils % 0.5, Lymphocytes # 1.3, Monocytes # 0.6, Eosinophils # 0.2, Basophils # 0.1, PUBS MCHC 33.1, MCH 28.0 05/01/17 0155: Hgb 10.4 L, Hct 30.9 L 04/30/17 2210: Misc Test Units BLOOD UNIT RELEASE 04/30/17 1905: Misc Test Units BLOOD UNIT RELEASE 04/30/17 1705: Antibody Screen NEGATIVE, Miscellaneous Test POSITIVE Assessment/Plan Problem List 1. Anemia due to blood loss, acute 2. GI bleed 3. Anemia of chronic disease 4. Ischemic cardiomyopathy 5. Hypokalemia Patient condition Stable Plan: continue current care, make medication changes (potassium), order additional tests (H and H this afternoon) This inpt stay is expected to cross 2 MNs from start of care Yes at 0716
--- NOTE | 2017-05-01 10:37 | PHARMACY CLINIC NOTE ---
Patient Demographics Patient Demographics Admission date: 04/30/17 Date: 05/01/17 Time: 1036 Allergies Coded Allergies: No Known Allergies (03/13/17) HEIGHT- FT: 5 IN: 2.00 K.759 VTE General Information Labs: Laboratory Tests 05/01 05/01 0545 0155 Hematology Hgb (12.2 - 16.2 g/dL) 9.9 L 10.4 L Hct (37.0 - 47.0 %) 29.7 L 30.9 L Plt Count (142 - 424 K/mm3) 233 Disclaimer The following section includes nursing documentation that has been pulled in for pharmacy review. Patient's VTE score: 2 Patient's VTE Risk: VERY LOW RISK Clinical trial participant? No VTE prophylaxis NQF [id number] VTE prophylaxis ordered? Yes Type of prophylaxis/treatment: NIRAV at 1036
[2017-05-01 18:05] LABS: HEMOGLOBIN 9.9 g/dL (12.2-16.2)
[2017-05-02] VITALS (25 sets, daily range): BP systolic 79–114; BP diastolic 40–61
[2017-05-02 07:23] LABS: HEMOGLOBIN 9.5 g/dL (12.2-16.2); LYMPH % 11.8 % (10-50.0)
--- NOTE | 2017-05-02 07:55 | ACUTE CARE PROGRESS NOTE (QUA) ---
Progress Notes Subjective Date 05/02/17 Time 0753 Note Patient continues to have tarry stools. H and H has slowly decreased since transfusion. Patient appears well. Lungs are clear. Heart has regular rate and rhythm. Abdomen is soft without epigastric tenderness. We will speak with Dr. Red today to see if he can do an upper endoscopy. Patient had upper gastrointestinal at last hospitalization without significant findings. This is her second gastrointestinal bleed in a month and the patient is going to need to be on aspirin and Brillinta for her recent cardiac stent placed in February. Patient will be made nothing by mouth Objective Findings Last VS-Temp:97.5 B/P:112/56 Pulse:77 Resp:20 SaO2:97 ROOM AIR Last weight lbs:140 oz:9 K.759 Method:Bed Scales Laboratory Tests 05/02/17 0640: Sodium 135 L, Potassium 3.0 L, Chloride 102, Carbon Dioxide 25, BUN 28 H, Creatinine 0.9, Estimated Creat Clear 44 L, Estimated GFR (MDRD) 59, Glucose 88 , Calcium 8.5, WBC 8.3, RBC 3.41 L, Hgb 9.5 L, Hct 29.3 L, MCV 86.0, RDW 18.8 H, Plt Count 247, MPV 8.1, Gran % 76.2, Gran # 6.3, Lymphocytes % 11.8, Monocytes % 6.6, Eosinophils % 5.0, Basophils % 0.4, Lymphocytes # 1.0, Monocytes # 0.6, Eosinophils # 0.4, Basophils # 0.0, PUBS MCHC 32.5, MCH 27.9 05/01/17 1759: Hgb 9.9 L, Hct 30.2 L Assessment/Plan Problem List 1. Anemia due to blood loss, acute 2. GI bleed 3. Anemia of chronic disease 4. Ischemic cardiomyopathy 5. Hypokalemia Patient condition Stable Plan: continue current care This inpt stay is expected to cross 2 MNs from start of care Yes at 0754
--- NOTE | 2017-05-02 13:41 | Operative Note ---
Upper GI Endoscopy Procedure date: 05/02/17 Date of : 30 Procedure:Upper GI Endoscopy Esophagogastroduodenoscopy with APC ablation and biopsies Indications: Mrs. Jeter is an 87-year-old female who presented with melena and was on dual antiplatelet therapy with Plavix and Brilinta. The patient drop from hemoglobin 12 down to 8.2. The patient had an upper gastrointestinal series which was negative and the patient was placed on Carafate and Protonix. She formerly had coronary artery stent placement. Performing Provider: Tom Red MD Referring Provider: Alban Saldivar M.D. Sedation: MAC sedation Procedure: Prior to the procedure, a history and physical exam was performed, and patients medications and allergies were reviewed. The risks and benefits of the procedure and the sedation options and risks were discussed with the patient. All questions were answered and informed consent was obtained. The patient was brought to the procedure room. Patient identification and proposed procedure were verified by the physician and the nurse. The patient was placed in a left lateral decubitus position and the scope was passed under direct vision. Throughout the procedure, the patient's blood pressure, pulse, and oxygen saturations were monitored continuously. The endoscope was introduced through the mouth, and advanced to the second part of duodenum. The upper GI endoscopy was accomplished without difficulty. The patient tolerated the procedure well. Findings: The scope was passed directly into the upper esophagus and advanced to the fourth portion of the duodenum. Within the duodenum there was some active bleeding with heme and clot upon an AVM/duodenal angiodysplasia and there were at least 3 of these identified in the second and third portion of the duodenum. These were washed and then ablated using the APC argon laser ablation. The endoscope was withdrawn through a normal bulb and pylorus into the stomach. There was evidence of moderate to marked atrophic gastritis of the body and fundus of the stomach. Cold biopsies were obtained from this portion of the stomach. There was no ulcerations or erosions of the stomach. Upon retroflexion there was a very small hiatal hernia. The scope was then withdrawn into the esophagus. There was no evidence of reflux esophagitis or Sesay's. The remainder of the esophageal mucosa was normal. Immediate complications: None EBL (ml): 0 Impression: 1. 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 Marked atrophic gastritis Recommendations: Given the fact that she had duodenal actively bleeding angiodysplasias, she may have additional AVMs bleeding within the mid and distal small intestine. Certainly some of this bleeding is a consequence of her anticoagulation. I will speak with Dr. Saldivar and would like for cardiology to determine whether this is a necessity long-term or whether we can use aspirin alone. Sometimes, hormonal therapy is utilized for angiodysplasias of the gastrointestinal tract that are refractory with ongoing hemorrhage. I do not feel that we are at this point yet. at 1345
[2017-05-02 14:40] LABS: HEMOGLOBIN 8.6 g/dL (12.2-16.2)
[2017-05-02 16:20] LABS: ANTIHUMAN GLOB CROSSMATCH COMPAT
[2017-05-03] VITALS (7 sets, daily range): BP systolic 96–111; BP diastolic 49–55
[2017-05-03 01:58] LABS: HEMOGLOBIN 10.9 g/dL (12.2-16.2)
[2017-05-03 06:07] LABS: HEMOGLOBIN 11.4 g/dL (12.2-16.2); LYMPH # 0.7 K/mm3 (0.7-4.5); LYMPH % 7.7 % (10-50.0)
--- NOTE | 2017-05-03 07:38 | ACUTE CARE PROGRESS NOTE (QUA) ---
Progress Notes Subjective Date 05/03/17 Time 0735 Note Patient only complains of being extremely tired due to the blood transfusion that she received yesterday evening that lasted into the market basket maker. She denies nausea or abdominal pain. EGD performed yesterday showed angiodysplastic lesions which were cauterized by Dr. Red. She may have more further down into the small intestine. She looks well. Lungs are clear. Heart has regular rate and rhythm. Abdomen is soft and nontender. Repeat H and H around noon. If H and H is stable [facility] Patient's aspirin will be held and Brillinta will be continued at discharge Objective Findings Last VS-Temp:98.5 B/P:98/50 Pulse:78 Resp:18 SaO2:96 ROOM AIR Last weight lbs:140 oz:9 K.759 Method:Bed Scales Laboratory Tests 05/03/17 0530: Sodium 133 L, Potassium 3.3 L, Chloride 103, Carbon Dioxide 21 L, BUN 18, Creatinine 0.7, Estimated Creat Clear 57, Estimated GFR (MDRD) 79, Glucose 86, Calcium 8.1 L, WBC 8.9, RBC 3.98 L, Hgb 11.4 L, Hct 34.0 L, MCV 85.4, RDW 17.7 H, Plt Count 198, MPV 8.1, Gran % 80.5 H, Gran # 7.2, Lymphocytes % 7.7 L, Monocytes % 7.4, Eosinophils % 4.0, Basophils % 0.4, Lymphocytes # 0.7, Monocytes # 0.7, Eosinophils # 0.4, Basophils # 0.0, PUBS MCHC 33.5, MCH 28.6 05/03/17 0135: Hgb 10.9 L, Hct 33.0 L 05/02/17 2151: Misc Test Units BLOOD UNIT RELEASE 05/02/17 1640: Misc Test Units BLOOD UNIT RELEASE 05/02/17 1429: Hgb 8.6 L, Hct 27.3 L Assessment/Plan Problem List 1. Anemia due to blood loss, acute 2. GI bleed 3. Anemia of chronic disease 4. Ischemic cardiomyopathy 5. Hypokalemia Patient condition Stable Plan: continue current care This inpt stay is expected to cross 2 MNs from start of care Yes at 0711
--- NOTE | 2017-05-03 07:38 | ACUTE CARE PROGRESS NOTE (QUA) ---
Progress Notes Subjective Date 05/03/17 Time 0735 Note Patient only complains of being extremely tired due to the blood transfusion that she received yesterday evening that lasted into the hair mixer. She denies nausea or abdominal pain. EGD performed yesterday showed angiodysplastic lesions which were cauterized by Dr. Red. She may have more further down into the small intestine. She looks well. Lungs are clear. Heart has regular rate and rhythm. Abdomen is soft and nontender. Repeat H and H around noon. If H and H is stable patient will be discharged back to [facility]. Patient's aspirin will be held and Brillinta will be continued at discharge Objective Findings Last VS-Temp:98.5 B/P:98/50 Pulse:78 Resp:18 SaO2:96 ROOM AIR Last weight lbs:140 oz:9 K.759 Method:Bed Scales Laboratory Tests 05/03/17 0530: Sodium 133 L, Potassium 3.3 L, Chloride 103, Carbon Dioxide 21 L, BUN 18, Creatinine 0.7, Estimated Creat Clear 57, Estimated GFR (MDRD) 79, Glucose 86, Calcium 8.1 L, WBC 8.9, RBC 3.98 L, Hgb 11.4 L, Hct 34.0 L, MCV 85.4, RDW 17.7 H, Plt Count 198, MPV 8.1, Gran % 80.5 H, Gran # 7.2, Lymphocytes % 7.7 L, Monocytes % 7.4, Eosinophils % 4.0, Basophils % 0.4, Lymphocytes # 0.7, Monocytes # 0.7, Eosinophils # 0.4, Basophils # 0.0, PUBS MCHC 33.5, MCH 28.6 05/03/17 0135: Hgb 10.9 L, Hct 33.0 L 05/02/17 2151: Misc Test Units BLOOD UNIT RELEASE 05/02/17 1640: Misc Test Units BLOOD UNIT RELEASE 05/02/17 1429: Hgb 8.6 L, Hct 27.3 L Assessment/Plan Problem List 1. Anemia due to blood loss, acute 2. GI bleed 3. Anemia of chronic disease 4. Ischemic cardiomyopathy 5. Hypokalemia Patient condition Stable Plan: continue current care This inpt stay is expected to cross 2 MNs from start of care Yes at 0730
[2017-05-03 12:29] LABS: HEMOGLOBIN 11.7 g/dL (12.2-16.2)
--- NOTE | 2017-05-03 12:50 | Discharge Summary ---
Demographics Admit date: 04/30/17 Discharge date: 05/03/17 Discharge diagnoses Problem List 1. Anemia due to blood loss, acute 2. GI bleed 3. Anemia of chronic disease 4. Ischemic cardiomyopathy 5. Hypokalemia 6. Angiodysplasia of gastrointestinal tract History of present illness History of present illness 87 year old female with ASHD, CKD, and anemia devloped melana earlier in the week. At that time her dual antiplatelet therapy was discontinued and serial cBC 's were perfomred. Over 48 hours her Hgb dropped from 12 to 8.2. Patient has continued to have melana. Due to apparent ongoing blood loss and anticipated drop in Hgb patient has been admitted for transfusion. Patient had admission at end of March for anemia. At that time UGI was negative for PUD adn patient was placed on carafate and protonix. Patient had stenting of coronary artery in february after NSTEMI. Patient was admitted and placed on Carafate and Protonix and transfused 2units of PRBC. She had excellent response to transfusion. Melanotic stools continued and H/H decreased. Gi consult was obtained. 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 These were cauterized. Patient recieved additional 2 units of PRBC after EGD which brought her Hgb up and this remained stable. see below for labs. Stephen was discharged back to [facility] and will remain on Brillinta for one month. After a month her Brillinta will be stopped and she will take aspirin 81 mg. Prognosis: fair rehab potential: fair mental status : average Laboratory Tests 05/03/17 1220: Hgb 11.7 L, Hct 35.3 L 05/03/17 0530: Sodium 133 L, Potassium 3.3 L, Chloride 103, Carbon Dioxide 21 L, BUN 18, Creatinine 0.7, Estimated Creat Clear 57, Estimated GFR (MDRD) 79, Glucose 86, Calcium 8.1 L, WBC 8.9, RBC 3.98 L, Hgb 11.4 L, Hct 34.0 L, MCV 85.4, RDW 17.7 H, Plt Count 198, MPV 8.1, Gran % 80.5 H, Gran # 7.2, Lymphocytes % 7.7 L, Monocytes % 7.4, Eosinophils % 4.0, Basophils % 0.4, Lymphocytes # 0.7, Monocytes # 0.7, Eosinophils # 0.4, Basophils # 0.0, PUBS MCHC 33.5, MCH 28.6 05/03/17 0135: Hgb 10.9 L, Hct 33.0 L 05/02/17 1429: Hgb 8.6 L, Hct 27.3 L 05/02/17 0640: Sodium 135 L, Potassium 3.0 L, Chloride 102, Carbon Dioxide 25, BUN 28 H, Creatinine 0.9, Estimated Creat Clear 44 L, Estimated GFR (MDRD) 59, Glucose 88 , Calcium 8.5, WBC 8.3, RBC 3.41 L, Hgb 9.5 L, Hct 29.3 L, MCV 86.0, RDW 18.8 H, Plt Count 247, MPV 8.1, Gran % 76.2, Gran # 6.3, Lymphocytes % 11.8, Monocytes % 6.6, Eosinophils % 5.0, Basophils % 0.4, Lymphocytes # 1.0, Monocytes # 0.6, Eosinophils # 0.4, Basophils # 0.0, PUBS MCHC 32.5, MCH 27.9 05/01/17 1759: Hgb 9.9 L, Hct 30.2 L 05/01/17 0545: Sodium 137, Potassium 2.9 *L, Chloride 105, Carbon Dioxide 22, BUN 34 H, Creatinine 0.9, Estimated Creat Clear 44 L, Estimated GFR (MDRD) 59, Glucose 101, Calcium 8.5, WBC 9.8, RBC 3.52 L, Hgb 9.9 L, Hct 29.7 L, MCV 84.6, RDW 18.9 H, Plt Count 233, MPV 8.1, Gran % 77.0, Gran # 7.5, Lymphocytes % 13.5, Monocytes % 6.5, Eosinophils % 2.4, Basophils % 0.5, Lymphocytes # 1.3, Monocytes # 0.6, Eosinophils # 0.2, Basophils # 0.1, PUBS MCHC 33.1, MCH 28.0 05/01/17 0155: Hgb 10.4 L, Hct 30.9 L Medications Medications: Discharge meds are as noted. Follow up Follow up in office in: will be seen at [facility] with: Alban Saldivar MD at [phone]
[2017-05-04 08:53] LABS: Vitamin D, 25-Hydroxy 56.2 ng/mL (30.0-100.0)
== END 2017-05-03 14:21 | DRG 811 ==
LOC: 2ND 15:17
PROVIDERS: Family Medicine; Internal Medicine Gastroenterology
PROC: 30233N1 Transfusion of Nonautologous Red Blood Cells into Peripheral Vein, Percutaneous Approach (ICD-10-PCS; principal; 2017-04-30)
PROC: 0DB98ZX Excision of Duodenum, Via Natural or Artificial Opening Endoscopic, Diagnostic (ICD-10-PCS; 2017-05-02)
PROC: 0W3P8ZZ Control Bleeding in Gastrointestinal Tract, Via Natural or Artificial Opening Endoscopic (ICD-10-PCS; 2017-05-02)
DX: D62 Acute posthemorrhagic anemia (principal); K31.811 Angiodysplasia of stomach and duodenum with bleeding; K55.21 Angiodysplasia of colon with hemorrhage; I25.5 Ischemic cardiomyopathy; I25.10 Atherosclerotic heart disease of native coronary artery without angina pectoris; I12.9 Hypertensive chronic kidney disease with stage 1 through stage 4 chronic kidney disease, or unspecified chronic kidney disease; N18.9 Chronic kidney disease, unspecified; K29.40 Chronic atrophic gastritis without bleeding; Z95.5 Presence of coronary angioplasty implant and graft; E87.6 Hypokalemia
CPT/HCPCS: C2618; J1756; P9016

== ENCOUNTER 2017-05-10 11:32 | Observation (INO) | payer MEDICARE, OTHER, MEDICAID ==
[~2017-05-10] VITALS: Ht 160 cm; Wt 59.5 kg
[~2017-05-10 11:32] MED LIST changes: +REGLAN 5MG TABLE5 MG PO
[2017-05-10 11:37] VITALS: BP 102/61
--- OUTSIDE RECORDS SUMMARY | 2017-05-10 11:41 | External Medical Summary Rpt | Continuity of Care Document ---
Author Author Organization Address Unknown Phone Unavailable Care Team Providers Care [facility] Coordinator Name Role Phone , Unavailable Unavailable EMS Current Medications Section EMS Allergies and Adverse Reactions EMS Past Medical History Medications Administered Section EMS Procedures Performed EMS Vital Signs EMS Patient Care Report Narrative EC2 responded to [facility] for a non scheduled, non emergent transfer of a 87 year old female to direct admit at [facility] second floor. On arrival staff advised patient may have a GI bleed due to patients H&H being low, and that patients doctor has been working on this issue for the past 3 days. Patient was found laying semi hines in bed and transferred to stretcher by drawsheet with assist X4 secured X3, and transported to EC unit where vitals were obtained and monitored during transport. Patient was alert and oriented X4. Patient had a medical history of heart disease, Parkinsons, and neuropathy. Patients spo2 was 88%so patient was placed on 2 liters of oxygen via nasal cannula. On arrival to receiving facility patients condition had improved her spo2 was 94% and was transported inside by stretcher and transferred to bed by drawsheet with assist X4. Patient care was transferred without incident. Patient was transported in reference to having weakness due to having Parkinsons.
--- OUTSIDE RECORDS SUMMARY | 2017-05-10 11:41 | External Medical Summary Rpt | Continuity of Care Document ---
Author Author Organization Address Unknown Phone Unavailable Care Team Providers Care Tool Clerk Name Role Phone , Unavailable Unavailable EMS Current Medications Section EMS Allergies and Adverse Reactions EMS Past Medical History Medications Administered Section EMS Procedures Performed EMS Vital Signs EMS Patient Care Report Narrative EC2 responded to [facility] for a non scheduled, non emergent transfer of a 87 year old female to direct admit at [facility] second floor. On arrival staff advised patient [...]
--- OUTSIDE RECORDS SUMMARY | 2017-05-10 11:51 | External Medical Summary Rpt | CCD ---
Author Author , [place] Organization [place] Address Unknown Phone [email or web address] Purpose Continuity of Care Document - 12-20-2016 through 2016 Problems Code Diagnosis DOS Provider Status D64.9 ANEMIA, UNSPECIFIED G20 PARKINSON'S DISEASE [id number] K92.2 GASTROINTES TINAL HEMORRHAGE, UNSPECIFIED M19.90 UNSPECIFIED [...] Order Detail nces retati t Range on Whole blood hemoglobin and hematocrit pa (05-03-2017 12:20) Blood 05-03-2 = 35.3 37.0-47 complet hematoc 017 % .0 ed rit 12:20 (volume fractio n) Blood 2 = 11.7 12.2-16 complet hemoglo 017 g/dL .2 ed bin 12:20 measure ment (mass/v olum Basic metabolic panel (05-03-2017 05:30) Serum 2 = 133 136-145 complet sodium 017 mmoL/L ed measure 05:30 ment Serum 2 = 3.3 3.5-5.1 complet potassi 017 mmoL/L ed um 05:30 measure ment Serum = 86 74-106 complet or 017 mg/dL ed plasma 05:30 glucose measure ment (mas Estimat = 57 50-200 complet ion of 017 ML/MIN ed creatin 05:30 ine renal clearan ce Serum = 0.7 0.55-1. complet or 017 mg/dL 02 ed plasma 05:30 creatin ine measure ment ( Carbon = 21 21.0-32 complet dioxide 017 mmoL/L .0 ed 05:30 measure ment Serum = 103 98-107 complet or 017 mmoL/L ed plasma 05:30 chlorid e measure ment (mo Serum = 18 7-18 complet or 017 mg/dL ed plasma 05:30 urea nitroge n measure men Estimat = 79 59- complet ed 017 ML/MIN ed glomeru 05:30 lar filtrat ion rate (GF Comment: REFERENCE RANGE: >60 ML/MIN/1.73 SQUARE METERS Comment: If this patient is -Romanian, then multiply the Comment: result by 1.210. Serum = 8.1 8.5-10. complet or 017 mg/dL 1 ed plasma 05:30 calcium measure ment (mas CBC w auto diff (05-03-2017 05:30) Blood = 8.9 4.8-10. complet leukocy 017 K/MM3 8 ed olya 05:30 count (number /volume ) Automat = 17.7 11.5-17 complet ed 017 % .5 ed erythro 05:30 cyte distrib ution width Red = 3.98 4.2-5.4 complet blood 017 M/mm3 ed cell 05:30 count Blood = 198 142-424 complet platele 017 K/mm3 ed t count 05:30 Automat = 8.1 7.4-10. complet ed 017 fl 4 ed blood 05:30 platele t mean volume karsten Elbert % = 7.4 % 1.7-9.3 complet 017 ed 05:30 Absolut = 0.7 0.1-1.0 complet e 017 K/mm3 ed monocyt 05:30 e count Automat = 85.4 82.2-97 complet ed 017 fl .8 ed erythro 05:30 cyte mean corpusc ular v Automat = 33.5 31.8-35 complet ed 017 g/dl .4 ed erythro 05:30 cyte mean corpusc ular h Mean = 28.6 27-31.2 complet corpusc 017 pg ed ular 05:30 hemoglo bin (MCH) determ Lymphoc = 7.7 % 10-50.0 complet yte 017 ed count, 05:30 blood, automat ed Absolut = 0.7 0.7-4.5 complet e 017 K/mm3 ed lymphoc 05:30 yte count Blood = 11.4 12.2-16 complet hemoglo 017 g/dL .2 ed bin 05:30 measure ment (mass/v olum Blood = 34.0 37.0-47 complet hematoc 017 % .0 ed rit 05:30 (volume fractio n) Granulo = 80.5 37.0-80 complet cyte 017 % .0 ed percent 05:30 age Blood = 7.2 1.8-7.8 complet granulo 017 K/mm3 ed cytes 05:30 automat ed count (numb Automat = 4.0 % 0.1-12. complet ed 017 0 ed blood 05:30 eosinop hils/10 0 leukocy t Automat = 0.4 0.0-0.4 complet ed 017 K/mm3 ed blood 05:30 eosinop hil count Baso % = 0.4 % 0.1-2.0 complet 017 ed 05:30 Automat = 0.0 0-0.2 complet ed 017 K/MM3 ed blood 05:30 basophi l count (count/ vo Whole blood hemoglobin and hematocrit pa (05-03-2017 01:35) Comment: COMMENTS TO MUCK MINER: POST TRANSFUSION Blood = 33.0 37.0-47 complet hematoc 017 % .0 ed rit 01:35 (volume fractio n) Blood = 10.9 12.2-16 complet hemoglo 017 g/dL .2 ed bin 01:35 measure ment (mass/v olum Comment: Leukocyte reduction of packed red blood (05-02-2017 21:51) Leukocy BLOOD complet te 017 UNIT ed reducti 21:51 RELEASE on of BLOOD packed UNIT red RELEASE blood L Comment: BLOOD UNIT # : [id number] RELEASED 05/02/17 Comment: Ingrid Sun Blood product special preparation [Type] (05-02-2017 21:51) Blood BLOOD complet product 017 UNIT ed 21:51 RELEASE special prepara tion [Type] Leukocyte reduction of packed red blood (05-02-2017 16:40) Leukocy BLOOD complet te 017 UNIT ed reducti 16:40 RELEASE on of BLOOD packed UNIT red RELEASE blood L Comment: Comment: BLOOD UNIT # : [id number] RELEASED 05/02/17 Comment: Lilia Burton Comment: Comment: A POS Blood product special preparation [Type] (05-02-2017 16:40) Blood BLOOD complet product 017 UNIT ed 16:40 RELEASE special prepara tion [Type] Whole blood hemoglobin and hematocrit pa (05-02-2017 14:29) Blood = 8.6 12.2-16 complet hemoglo 017 g/dL .2 ed bin 14:29 measure ment (mass/v olum Blood = 27.3 37.0-47 complet hematoc 017 % .0 ed rit 14:29 (volume fractio n) Basic metabolic panel (05-02-2017 06:40) Serum = 28 7-18 complet or 017 mg/dL ed plasma 06:40 urea nitroge n measure men Serum = 8.5 8.5-10. complet or 017 mg/dL 1 ed plasma 06:40 calcium measure ment (mas Serum = 102 98-107 complet or 017 mmoL/L ed plasma 06:40 chlorid e measure ment (mo Carbon = 25 21.0-32 complet dioxide 017 mmoL/L .0 ed 06:40 measure ment Serum = 0.9 0.55-1. complet or 017 mg/dL 02 ed plasma 06:40 creatin ine measure ment ( Estimat = 44 50-200 complet ion of 017 ML/MIN ed creatin 06:40 ine renal clearan ce Estimat = 59 59- complet ed 017 ML/MIN ed glomeru 06:40 lar filtrat ion rate (GF Comment: REFERENCE RANGE: >60 ML/MIN/1.73 SQUARE METERS Comment: If this patient is -Romanian, then multiply the Comment: result by 1.210. Serum = 88 74-106 complet or 017 mg/dL ed plasma 06:40 glucose measure ment (mas Serum = 3.0 3.5-5.1 complet potassi 017 mmoL/L ed um 06:40 measure ment Comment: CRITICAL RESULTS Comment: RESULTS CALLED TO: JUAN ANTONIO 05/02/17 0724 Buddy Comer Comment: Inez Serum = 135 136-145 complet sodium 017 mmoL/L ed measure 06:40 ment CBC w auto diff (05-02-2017 06:40) Automat = 18.8 11.-17 complet ed 017 % .5 ed erythro 06:40 cyte distrib ution width Red = 3.41 4.2-5.4 complet blood 017 M/mm3 ed cell 06:40 count Blood = 247 142-424 complet platele 017 K/mm3 ed t count 06:40 Automat = 8.1 7.4-10. complet ed 017 fl 4 ed blood 06:40 platele t mean volume karsten Elbert % = 6.6 % 1.7-9.3 complet 017 ed 06:40 Absolut = 0.6 0.1-1.0 complet e 017 K/mm3 ed monocyt 06:40 e count Automat = 86.0 82.2-97 complet ed 017 fl .8 ed erythro 06:40 cyte mean corpusc ular v Automat = 32.5 31.8-35 complet ed 017 g/dl .4 ed erythro 06:40 cyte mean corpusc ular h Mean = 27.9 27-31.2 complet corpusc 017 pg ed ular 06:40 hemoglo bin (MCH) determ Lymphoc = 11.8 10-50.0 complet yte 017 % ed count, 06:40 blood, automat ed Absolut = 1.0 0.7-4.5 complet e 017 K/mm3 ed lymphoc 06:40 yte count Blood = 9.5 12.2-16 complet hemoglo 017 g/dL .2 ed bin 06:40 measure ment (mass/v olum Blood = 29.3 37.0-47 complet hematoc 017 % .0 ed rit 06:40 (volume fractio n) Granulo = 76.2 37.0-80 complet cyte 017 % .0 ed percent 06:40 age Blood = 6.3 1.8-7.8 complet granulo 017 K/mm3 ed cytes 06:40 automat ed count (numb Automat = 5.0 % 0.1-12. complet ed 017 0 ed blood 06:40 eosinop hils/10 0 leukocy t Automat = 0.4 0.0-0.4 complet ed 017 K/mm3 ed blood 06:40 eosinop hil count Baso % = 0.4 % 0.1-2.0 complet 017 ed 06:40 Automat = 0.0 0-0.2 complet ed 017 K/MM3 ed blood 06:40 basophi l count (count/ vo Blood = 8.3 4.8-10. complet leukocy 017 K/MM3 8 ed olya 06:40 count (number /volume ) Serum or plasma 25-hydroxyvitamin D lance (05-02-2017 06:00) Serum = 56.2 30.0-10 complet or 017 ng/mL 0.0 ed plasma 06:00 25-hydr oxyvita min D lance Comment: Vitamin D deficiency has been defined by the [place] of Comment: Medicine and an Endocrine Society practice guideline as a Comment: level of serum 25-OH vitamin D less than 20 ng/mL (1,2). Comment: The Endocrine Society went on to further define vitamin D Comment: insufficiency as a level between 21 and 29 ng/mL (2). Comment: 1. IOM ([place] of Medicine). 2010. Dietary reference Comment: intakes for calcium and D. [place]: The Comment: [employer]. Comment: 2. Melchor MF, Gamal GIANG, Chanda JUÁREZ, et al. Comment: Evaluation, treatment, and prevention of vitamin D Comment: deficiency: an Endocrine Society clinical practice Comment: guideline. JCEM. 2010; 96(7):1911-30. Comment: Performed at: [facility] Comment: [id number], [place] [id number] Comment: [employer]: Tian Holt PhD, Phone: [phone] Iron and TIBC (05-02-2017 06:00) Iron, = 42 27-139 complet serum 017 ug/dL ed 06:00 Unsatur = 125 118-369 complet ated 017 ug/dL ed iron 06:00 binding capacit y measur Serum = 25 % 15-55 complet or 017 ed plasma 06:00 iron saturat ion measure m Serum = 167 250-450 complet or 017 ug/dL ed plasma 06:00 iron binding capacit y me Vitamin B12 ser/plas (05-02-2017 06:00) Vitamin = 414 211-946 complet B12 017 pg/mL ed ser/eliud 06:00 s Comment: Effective May 09, 2017 the reference interval Comment: for Vitamin B12 will be changing to: 232-1245 pg/mL. Comment: Performed at: [facility] Comment: [id number], [place] [id number] Comment: [employer]: Tian Holt PhD, Phone: [phone] Whole blood hemoglobin and hematocrit pa (05-01-2017 17:59) Blood = 9.9 12.2-16 complet hemoglo 017 g/dL .2 ed bin 17:59 measure ment (mass/v olum Blood = 30.2 37.0-47 complet hematoc 017 % .0 ed rit 17:59 (volume fractio n) CBC w auto diff (05-01-2017 05:45) Automat = 0.2 0.0-0.4 complet ed 017 K/mm3 ed blood 05:45 eosinop hil count Automat = 2.4 % 0.1-12. complet ed 017 0 ed blood 05:45 eosinop hils/10 0 leukocy t Blood = 7.5 1.8-7.8 complet granulo 017 K/mm3 ed cytes 05:45 automat ed count (numb Granulo = 77.0 37.0-80 complet cyte 017 % .0 ed percent 05:45 age Blood = 29.7 37.0-47 complet hematoc 017 % .0 ed rit 05:45 (volume fractio n) Blood = 9.9 12.2-16 complet hemoglo 017 g/dL .2 ed bin 05:45 measure ment (mass/v olum Absolut = 1.3 0.7-4.5 complet e 017 K/mm3 ed lymphoc 05:45 yte count Lymphoc = 13.5 10-50.0 complet yte 017 % ed count, 05:45 blood, automat ed Mean = 28.0 27-31.2 complet corpusc 017 pg ed ular 05:45 hemoglo bin (MCH) determ Automat = 33.1 31.8-35 complet ed 017 g/dl .4 ed erythro 05:45 cyte mean corpusc ular h Automat = 84.6 82.2-97 complet ed 017 fl .8 ed erythro 05:45 cyte mean corpusc ular v Absolut = 0.6 0.1-1.0 complet e 017 K/mm3 ed monocyt 05:45 e count Elbert % = 6.5 % 1.7-9.3 complet 017 ed 05:45 Automat = 8.1 7.4-10. complet ed 017 fl 4 ed blood 05:45 platele t mean volume karsten Blood = 233 142-424 complet platele 017 K/mm3 ed t count 05:45 Red = 3.52 4.2-5.4 complet blood 017 M/mm3 ed cell 05:45 count Automat = 18.9 11.5-17 complet ed 017 % .5 ed erythro 05:45 cyte distrib ution width Blood = 9.8 4.8-10. complet leukocy 017 K/MM3 8 ed olya 05:45 count (number /volume ) Automat = 0.1 0-0.2 complet ed 017 K/MM3 ed blood 05:45 basophi l count (count/ vo Baso % = 0.5 % 0.1-2.0 complet 017 ed 05:45 Basic metabolic panel (05-01-2017 05:45) Serum = 137 136-145 complet sodium 017 mmoL/L ed measure 05:45 ment Serum = 2.9 3.5-5.1 complet potassi 017 mmoL/L ed um 05:45 measure ment Comment: CRITICAL RESULTS Comment: RESULTS CALLED TO: Sarahy BRADLEY RN 05/01/17 0640 Ozzie Luke Serum = 101 74-106 complet or 017 mg/dL ed plasma 05:45 glucose measure ment (mas Estimat = 59 59- complet ed 017 ML/MIN ed glomeru 05:45 lar filtrat ion rate (GF Comment: REFERENCE RANGE: >60 ML/MIN/1.73 SQUARE METERS Comment: If this patient is -Romanian, then multiply the Comment: result by 1.210. Estimat = 44 50-200 complet ion of 017 ML/MIN ed creatin 05:45 ine renal clearan ce Serum = 0.9 0.55-1. complet or 017 mg/dL 02 ed plasma 05:45 creatin ine measure ment ( Carbon = 22 21.0-32 complet dioxide 017 mmoL/L .0 ed 05:45 measure ment Serum = 105 98-107 complet or 017 mmoL/L ed plasma 05:45 chlorid e measure ment (mo Serum = 8.5 8.5-10. complet or 017 mg/dL 1 ed plasma 05:45 calcium measure ment (mas Serum = 34 7-18 complet or 017 mg/dL ed plasma 05:45 urea nitroge n measure men Whole blood hemoglobin and hematocrit pa (05-01-2017 01:55) Comment: COMMENTS TO MUCK MINER: 1HR POST HGB/HCT FOLLOWING BLOOD Comment: COMPLETION Blood = 10.4 12.2-16 complet hemoglo 017 g/dL .2 ed bin 01:55 measure ment (mass/v olum Blood = 30.9 37.0-47 complet hematoc 017 % .0 ed rit 01:55 (volume fractio n) Leukocyte reduction of packed red blood (04-30-2017 22:10) Leukocy BLOOD complet te 017 UNIT ed reducti 22:10 RELEASE on of BLOOD packed UNIT red RELEASE blood L Comment: BLOOD UNIT # : [id number] RELEASED 04/30/17 2210 Comment: Ozzie Luke Comment: Comment: A POSITIVE Blood product special preparation [Type] (04-30-2017 22:10) Blood BLOOD complet product 017 UNIT ed 22:10 RELEASE special prepara tion [Type] Leukocyte reduction of packed red blood (04-30-2017 19:05) Leukocy BLOOD complet te 017 UNIT ed reducti 19:05 RELEASE on of BLOOD packed UNIT red RELEASE blood L Comment: BLOOD UNIT # : [id number] RELEASED 04/30/17 1905 Comment: Ozzie Luke Comment: A POSITIVE Blood product special preparation [Type] (04-30-2017 19:05) Blood BLOOD complet product 017 UNIT ed 19:05 RELEASE special prepara tion [Type] Crossmatch (04-30-2017 17:05) Comment: Hold? N Comment: Transfuse now? 2 UNITS NOW Immedia COMPAT complet te spin 017 COMPAT ed 17:05 L crossma tch Interpr COMPAT complet etation 017 COMPAT ed of 17:05 L major crossma tch resul Blood type and crossmatch (04-30-2017 17:05) Comment: Hold? N Comment: Transfuse now? 2 UNITS NOW Blood A A L complet ABO 017 ed group 17:05 typing Rh POSITIV complet blood 017 E ed group 17:05 POSITIV typing E L Materna NEGATIV NEGATIV complet l 017 E E ed antibod 17:05 NEGATIV y E L screen Blood type & Crossmatch panel in Blood (04-30-2017 17:05) Blood NEGATIV NEGATIV complet group 017 E E ed antibod 17:05 y screen [Presen ce] in Serum or Plasma Rh POSITIV complet [Type] 017 E ed in 17:05 Blood ABO A complet group 017 ed [Type] 17:05 in Blood Blood type & Crossmatch panel in Blood (04-30-2017 17:05) [facility] COMPAT complet crossma 017 ed tch 17:05 [interp retatio n] [facility] COMPAT complet crossma 017 ed tch 17:05 [interp retatio n] by Immedia te spin CBC w auto diff (04-30-2017 09:00) Blood = 7.7 4.8-10. complet leukocy 017 K/MM3 8 ed olya 09:00 count (number /volume ) Automat = 18.9 11.5-17 complet ed 017 % .5 ed erythro 09:00 cyte distrib ution width Red = 2.78 4.2-5.4 complet blood 017 M/mm3 ed cell 09:00 count Blood = 253 142-424 complet platele 017 K/mm3 ed t count 09:00 Automat = 8.9 7.4-10. complet ed 017 fl 4 ed blood 09:00 platele t mean volume karsten Elbert % = 7.7 % 1.7-9.3 complet 017 ed 09:00 Absolut = 0.6 0.1-1.0 complet e 017 K/mm3 ed monocyt 09:00 e count Automat = 89.7 82.2-97 complet ed 017 fl .8 ed erythro 09:00 cyte mean corpusc ular v Automat = 32.4 31.8-35 complet ed 017 g/dl .4 ed erythro 09:00 cyte mean corpusc ular h Mean = 29.0 27-31.2 complet corpusc 017 pg ed ular 09:00 hemoglo bin (MCH) determ Lymphoc = 12.9 10-50.0 complet yte 017 % ed count, 09:00 blood, automat ed Absolut = 1.0 0.7-4.5 complet e 017 K/mm3 ed lymphoc 09:00 yte count Blood = 8.2 12.2-16 complet hemoglo 017 g/dL .2 ed bin 09:00 measure ment (mass/v olum Blood = 24.9 37.0-47 complet hematoc 017 % .0 ed rit 09:00 (volume fractio n) Granulo = 76.3 37.0-80 complet cyte 017 % .0 ed percent 09:00 age Blood = 5.8 1.8-7.8 complet granulo 017 K/mm3 ed cytes 09:00 automat ed count (numb Automat = 2.6 % 0.1-12. complet ed 017 0 ed blood 09:00 eosinop hils/10 0 leukocy t Automat = 0.2 0.0-0.4 complet ed 017 K/mm3 ed blood 09:00 eosinop hil count Baso % = 0.5 % 0.1-2.0 complet 017 ed 09:00 Automat = 0.0 0-0.2 complet ed 017 K/MM3 ed blood 09:00 basophi l count (count/ vo CBC w auto diff (04-28-2017) Blood = 32.2 37.0-47 complet hematoc 017 % .0 ed rit (volume fractio n) Granulo = 71.0 37.0-80 complet cyte 017 % .0 ed percent age Blood = 5.8 1.8-7.8 complet granulo 017 K/mm3 ed cytes automat ed count (numb Automat = 0.4 0.0-0.4 complet ed 017 K/mm3 ed blood eosinop hil count Automat = 4.3 % 0.1-12. complet ed 017 [...] ed blood platele t mean volume karsten Elbert % = 9.5 % 1.7-9.3 complet 017 [...] .2 ed bin measure ment (mass/v olum DIARRHEA PANEL,PCR (04-10-2017) Stool NOT NOT complet norovir 017 DETECTE DETECTE ed us D NOT assay DETECTE D L Stool NOT NOT complet Giardia 017 DETECTE DETECTE ed D NOT lamblia DETECTE D L antigen detecti on Entamoe NOT NOT complet ba 017 DETECTE DETECTE ed histoly D NOT rudolph DETECTE detecti D L on Escheri NOT NOT complet cezar 017 DETECTE DETECTE ed coli D NOT O157 DETECTE stool D L culture Escheri NOT NOT complet cezar 017 DETECTE DETECTE ed coli D NOT Shiga-l DETECTE gaby D L toxin 1 assa Escheri NOT NOT complet cezar 017 DETECTE DETECTE ed coli D NOT detecti DETECTE on D L Cyclosp NOT NOT complet ora 017 DETECTE DETECTE ed cayetan D NOT esis DETECTE detecti D L on Cryptos NOT NOT complet poridiu 017 DETECTE DETECTE ed m ag D NOT detecti DETECTE on D L Stool DETECTE NOT complet Clostri 017 D DETECTE ed dium DETECTE diffici D L le A and B toxi Comment: RESULTS CALLED TO: DR. HESTER 04/10/17 2200 Luke,John Campylo NOT NOT complet bacter 017 DETECTE DETECTE ed antibod D NOT y assay DETECTE D L Astrovi NOT NOT complet daphnie 017 DETECTE DETECTE ed detecti D NOT on DETECTE D L Aeromon NOT NOT complet as 017 DETECTE DETECTE ed salmoni D NOT maine DETECTE detecti D L on Stool NOT NOT complet adenovi 017 DETECTE DETECTE ed daphnie 40 D NOT and 41 DETECTE antigen D L assay Stool NOT NOT complet Vibrio 017 DETECTE DETECTE ed species D NOT DETECTE identif D L ication by o Vibrio NOT NOT complet species 017 DETECTE DETECTE ed D NOT nucleic DETECTE acid D L assay by PCR Vibrio NOT NOT complet cholera 017 DETECTE DETECTE ed e DNA D NOT detecti DETECTE on by D L probe a Escheri NOT NOT complet cezar 017 DETECTE DETECTE ed coli D NOT shiga-l DETECTE gaby D L toxin STX1 a E coli NOT NOT complet detecti 017 DETECTE DETECTE ed on D NOT DETECTE D L Caliciv NOT NOT complet irus ID 017 DETECTE DETECTE ed D NOT DETECTE D L Salmone NOT NOT complet lla 017 DETECTE DETECTE ed species D NOT DNA DETECTE detecti D L on by prob Rotavir NOT NOT complet us RNA 017 DETECTE DETECTE ed detecti D NOT on by DETECTE probe D L and tar Stool NOT NOT complet Plesiom 017 DETECTE DETECTE ed onas D NOT shigell DETECTE oides D L DNA detec Digoxin level (04-09-2017 06:34) Digoxin = 1.03 1.15-2. complet level 017 ng/mL 56 ed 06:34 CBC w auto diff (04-09-2017 06:34) Blood [...] blood 06:34 platele t mean volume karsten Elbert % = 7.3 % 1.7-9.3 complet 017 [...] 06:34 (volume fractio n) Basic metabolic panel (04-09-2017 06:34) Serum = 8.2 8.5-10. complet or 017 mg/dL 1 ed plasma 06:34 calcium measure ment (mas Serum = 138 136-145 complet sodium 017 [...] SQUARE METERS Comment: If this patient is -Romanian, then multiply the Comment: result by 1.210. [...] w auto diff (04-08-2017 06:12) Automat = 90.4 82.2-97 complet ed 017 fl .8 ed erythro 06:12 cyte mean corpusc ular v Absolut = 1.6 0.1-1.0 complet e 017 K/mm3 ed monocyt 06:12 e count Elbert % = 7.5 % 1.7-9.3 complet 017 ed 06:12 Automat = 7.6 7.4-10. complet ed 017 fl 4 ed blood 06:12 platele t mean volume karsten Blood = 327 142-424 complet platele 017 K/mm3 ed t count 06:12 Red = 3.07 4.2-5.4 complet blood 017 M/mm3 ed cell 06:12 count Automat = 15.6 11.5-17 complet ed 017 % .5 ed erythro 06:12 cyte distrib ution width Blood = 20.6 4.8-10. complet leukocy 017 K/MM3 8 ed olya 06:12 count (number /volume ) Automat = 0.0 0-0.2 complet ed 017 K/MM3 ed blood 06:12 basophi l count (count/ vo Baso % = 0.1 % 0.1-2.0 complet 017 ed 06:12 Automat = 0.2 0.0-0.4 complet ed 017 K/mm3 ed blood 06:12 eosinop hil count Automat = 1.0 % 0.1-12. complet ed 017 0 ed blood 06:12 eosinop hils/10 0 leukocy t Blood = 17.5 1.8-7.8 complet granulo 017 K/mm3 ed cytes 06:12 automat ed count (numb Granulo = 84.9 37.0-80 complet cyte 017 % .0 ed percent 06:12 age Blood = 27.8 37.0-47 complet hematoc 017 % .0 ed rit 06:12 (volume fractio n) Blood = 9.2 12.2-16 complet hemoglo 017 g/dL .2 ed bin 06:12 measure ment (mass/v olum Absolut = 1.4 0.7-4.5 complet e 017 K/mm3 ed lymphoc 06:12 yte count Lymphoc = 6.5 % 10-50.0 complet yte 017 ed count, 06:12 blood, automat ed Mean = 30.1 27-31.2 complet corpusc 017 pg ed ular 06:12 hemoglo bin (MCH) determ Automat = 33.3 31.8-35 complet ed 017 g/dl .4 ed erythro 06:12 cyte mean corpusc ular h Basic metabolic panel (04-08-2017 06:12) Serum = [...] SQUARE METERS Comment: If this patient is -Romanian, then multiply the Comment: result by 1.210. [...] plasma 06:12 urea nitroge n measure men Whole blood hemoglobin and hematocrit pa (04-07-2017 [...] SQUARE METERS Comment: If this patient is -Romanian, then multiply the Comment: result by 1.210. [...] blood 06:20 platele t mean volume karsten Elbert % = 8.1 % 1.7-9.3 complet 017 [...] ce] in Blood by Light microsc opy [place] 2+ complet cells 017 ed [Presen 06:20 [...] Comment: BLOOD UNIT # : [id number] RELEASED 04/06/17 Comment: Buddy Comer Comment: Comment: [...] blood 07:11 platele t mean volume karsten Elbert % = 6.9 % 1.7-9.3 complet 017 [...] % 0.1-2.0 complet 017 ed 07:11 Automat 2 = 0.0 0-0.2 complet ed [...] 08:07) Comment: SAMPLES DRAWN LATE DUE TO BUILD ENGINEER BREAK DOWNS Serum = 145 136-145 complet [...] SQUARE METERS Comment: If this patient is -Romanian, then multiply the Comment: result by 1.210. [...] 08:00) Comment: SAMPLES DRAWN LATE DUE TO BUILD ENGINEER BREAKDOWNS Blood = 100 complet total 017 [...] 08:00) Comment: SAMPLES DRAWN LATE DUE TO BUILD ENGINEER BREAKDOWNS Blood = 15.3 4.8-10. complet leukocy 017 K/MM3 8 ed olya 08:00 count (number /volume ) Automat = 14.9 11.5-17 complet ed 017 % .5 ed erythro 08:00 cyte distrib ution width Red = 3.06 4.2-5.4 complet blood 017 M/mm3 ed cell 08:00 count Blood = 389 142-424 complet platele 017 K/mm3 ed t count 08:00 Automat 2 = 0.0 0-0.2 complet ed 017 K/MM3 ed blood 08:00 basophi l count (count/ vo Automat = 7.4 7.4-10. complet ed 017 fl 4 ed blood 08:00 platele t mean volume karsten Elbert % = 5.9 % 1.7-9.3 complet 017 [...] count correct ed for nuc Baso % 04-05-2 = 0.3 % 0.1-2.0 complet 017 ed 08:00 Differential panel, method unspecified - (04-05-2017 08:00) Acantho 04-05-2 1+ complet cytes 017 ed [Presen 08:00 ce] in Blood by Light microsc opy Hypochr 04-05- 1+ complet omia 017 ed [Presen 08:00 ce] in Blood LYMPH 13 % 10% - Normal complet 017 50% ed 08:00 Ovalocy 04-05-2 1+ complet olya 017 ed [Presen 08:00 [...] Comment: BLOOD UNIT # : [id number] RELEASED 04/04/17 Comment: Ingrid Sun Blood product special preparation [Type] (04-04-2017 22:15) Blood BLOOD complet product 017 UNIT ed 22:15 RELEASE special prepara tion [Type] Leukocyte reduction of packed red blood (04-04-2017 17:42) Leukocy BLOOD complet te 017 UNIT ed reducti 17:42 RELEASE on of BLOOD packed UNIT red RELEASE blood L Comment: BLOOD UNIT # : [id number] RELEASED A POS Comment: 04/04/17 Comment: Ragini [...] resul Blood type and crossmatch (04-04-2017 15:51) Materna NEGATIV NEGATIV complet l 017 E E ed antibod 15:51 NEGATIV y E L screen Blood A A L complet ABO 017 ed group 15:51 typing Comment: TIME 1625 Comment: Rh POSITIV complet blood 017 E ed group 15:51 POSITIV typing E L Blood type & Crossmatch panel in Blood [...] [interp retatio n] by Immedia te spin Vitamin B12 ser/plas (04-04-2017 14:19) Comment: COMMENTS TO MUCK MINER: use blood drawn from ER if Comment: possible Vitamin = 519 211-946 complet B12 017 pg/mL ed ser/eliud 14:19 s Comment: Performed at: [facility] Comment: [id number], [place] [id number] Comment: [employer]: Tian Holt PhD, Phone: [phone] Serum or plasma ferritin measurement (ma (04-04-2017 14:19) Comment: COMMENTS TO [employer]CK MINER: use blood drawn from ER if Comment: possible Serum -- = 39 [phone] complet or 017 ng/mL ed plasma 14:19 ferriti n measure ment (az Automated blood reticulocytes count (num (04-04-2017 14:19) Comment: COMMENTS TO MUCK MINER: use blood drawn from ER if Comment: possible Automat = 4.9 % 0.9-3.2 complet ed 017 ed blood 14:19 reticul ocytes count (num Iron and TIBC (10-30-2017 14:19) Comment: COMMENTS TO MUCK MINER: use blood drawn from ER if Comment: possible Serum 04-04-2 = 7 % 15-55 complet or 017 ed plasma 14:19 iron saturat ion measure m Comment: Performed at: [facility] Comment: [id number] [facility], [place], [place] [id number] Comment: Catal[employer] Manufacturing Operator: Tian Holt PhD, Phone: [phone] Iron, 2 = 17 27-139 complet serum 017 ug/dL ed 14:19 Unsatur 04-04-2 = 237 118-369 complet ated 017 ug/dL ed iron 14:19 binding capacit y measur Serum 04-04-2 = 254 250-450 complet or 017 ug/dL ed plasma 14:19 iron binding capacit y me Lipase measurement (04-04-2017 14:19) Lipase 04-04- = 220 73-393 complet measure 017 U/L ed ment 14:19 CBC w auto diff (04-04-2017 14:19) Automat 04-04-2 = 0.0 0-0.2 complet ed 017 K/MM3 ed blood 14:19 basophi l count (count/ vo Blood = 13.9 4.8-10. complet leukocy 017 K/MM3 8 ed olya 14:19 count (number /volume ) Automat 2 = 15.6 11.5-17 complet ed 017 % .5 ed erythro 14:19 cyte distrib ution width Red 2 = 2.28 4.2-5.4 complet blood 017 M/mm3 ed cell 14:19 count Blood 2 = 513 142-424 complet platele 017 K/mm3 ed t count 14:19 Automat 2 = 7.3 7.4-10. complet ed 017 fl 4 ed blood 14:19 platele t mean volume karsten Elbert % 2 = 5.4 % 1.7-9.3 complet 017 ed 14:19 Absolut 04-04-2 = 0.8 0.1-1.0 complet e 017 K/mm3 ed monocyt 14:19 e count Automat 2 = 88.5 82.2-97 complet ed 017 fl .8 ed erythro 14:19 cyte mean corpusc ular v Automat 1030-2 = 30.8 31.8-35 complet ed 017 g/dl [...] Comment: CRITICAL RESULTS Comment: RESULTS CALLED TO: DAVID 04/04/17 1507 Lilia Burton Blood = 20.2 37.0-47 complet hematoc 017 % .0 ed rit 14:19 (volume fractio n) Comment: CRITICAL RESULTS Comment: RESULTS CALLED TO: TONYA.L 04/04/17 1508 Lilia Burton Granulo = 84.7 [...] ed 14:19 Cardiac enzymes (04-04-2017 14:19) Serum 10-30-2 = 0.04 0.00-0. complet or 017 ng/mL 06 ed plasma 14:19 troponi n i.cardi ac measu Serum = 17 26-192 complet or 017 U/L ed plasma 14:19 creatin e kinase measure m Serum 2 = 1.8 0.0-3.6 complet or 017 ng/mL ed plasma 14:19 creatin e kinase MB measu Serum = 10.6 0-4.0 complet or 017 U/L ed plasma 14:19 creatin e kinase MB (CK-M Comprehensive metabolic panel (04-04-2017 14:19) Protein = 6.0 6.4-8.2 complet total 017 gm/dL ed ser/eliud 14:19 s ALT = 7 U/L 12-78 complet (SGPT) 017 ed ser/eliud 14:19 s Serum = 10 15-37 complet or 017 U/L [...] SQUARE METERS Comment: If this patient is -Romanian, then multiply the Comment: result by 1.210. Estimat 2 = 32 50-200 complet ion of 017 ML/MIN ed creatin 14:19 ine renal clearan ce Serum = 1.6 0.55-1. complet or 017 mg/dL 02 ed plasma 14:19 creatin ine measure ment ( Carbon = 24 21.0-32 complet dioxide 017 mmoL/L .0 ed 14:19 measure ment Serum 2 = 106 98-107 complet or 017 mmoL/L ed plasma 14:19 chlorid e measure ment (mo Serum 04-04-2 = 8.8 8.5-10. complet or 017 mg/dL 1 ed plasma 14:19 calcium measure ment (mas Serum 04-04-2 = 66 7-18 complet or 017 mg/dL ed plasma 14:19 urea nitroge n measure men Serum 2 = 0.3 0.2-1.0 complet or 017 mg/dL ed plasma 14:19 total bilirub in measure m Serum = 90 46-116 complet or 017 U/L ed plasma 14:19 alkalin e phospha tase karsten Serum = 2.4 3.4-5.0 complet or 017 gm/dL ed plasma 14:19 albumin measure ment (mas Serum 2 = 0.7 1.1-1.8 complet or 017 ed plasma 14:19 albumin /globul in mass ra Whole blood INR measurement (04-04-2017 14:14) Comment: IS PATIENT ON ANTICOAGULANTS? N Prothro = 11.5 9.4-11. complet mbin 017 SECONDS 8 ed time 14:14 (PT) in platele t poor p Whole = 1.06 0.9-1.1 complet blood 017 ed INR 14:14 measure ment Comment: INDICATION INR RANGE Comment: Comment: THERAPY FOR DVT, PE, ATRIAL FIB; 2.0 - 3.0 Comment: PROPHYLAXIS FOR VTE Comment: Comment: THERAPY FOR MECHANICAL HEART 2.5 - 3.5 Comment: VALVE; PREVENTION OF SYSTEMIC Comment: EMBOLISM SECONDARY TO AMI Activated partial thromboplastin time (a (04-04-2017 14:14) [...] Unspeci fied specime n Serum or plasma ferritin measurement (ma (03-14-2017 [...] SQUARE METERS Comment: If this patient is -Romanian, then multiply the Comment: result by 1.210. [...] blood 06:54 platele t mean volume karsten Elbert % = 9.2 % 1.7-9.3 complet 017 [...] blood 06:54 basophi l count (count/ vo Serum or plasma folate measurement (mass (03-14-2017 [...] ed ser/eliud 06:54 s Comment: Performed at: [facility] Comment: [id number] [facility], [place], [place] [id number] Comment: [employer] Operator: Tian Holt PhD, Phone: [phone] Comprehensive metabolic panel (03-13-2017 12:34) Protein = [...] SQUARE METERS Comment: If this patient is -Romanian, then multiply the Comment: result by 1.210. [...] 12:34 total bilirub in measure m Serum 10-08-2 = 98 46-116 complet or 017 U/L ed plasma 12:34 alkalin e phospha tase karsten Serum = 3.0 3.4-5.0 complet or 017 gm/dL ed plasma 12:34 albumin measure ment (mas Serum 2 = 1.0 1.1-1.8 complet or 017 ed plasma 12:34 albumin /globul in mass ra Cardiac enzymes (03-13-2017 12:34) Serum 2 = 0.04 0.00-0. complet or 017 ng/mL [...] blood 12:34 platele t mean volume karsten Elbert % = 8.3 % 1.7-9.3 complet 017 [...]
--- OUTSIDE RECORDS SUMMARY | 2017-05-10 11:51 | External Medical Summary Rpt | CCD ---
Author Author , [place] Organization [place] Address Unknown Phone [email or web address] Purpose Continuity of Care Document - 12-20-2016 through 2016 Problems Code Diagnosis DOS Provider Status D64.9 ANEMIA, UNSPECIFIED G20 PARKINSON'S DISEASE [id number] K92.2 GASTROINTES TINAL HEMORRHAGE, UNSPECIFIED M19.90 UNSPECIFIED [...] SQUARE METERS Comment: If this patient is -Greenlandic, then multiply the Comment: result by 1.210. [...] blood 05:30 platele t mean volume karsten Glenn % = 7.4 % 1.7-9.3 complet 017 [...] hematocrit pa (05-03-2017 01:35) Comment: COMMENTS TO [employer]CHO[employer] SPECIAL EDUCATION TEACHER: POST TRANSFUSION Blood = 33.0 37.0-47 complet [...] Comment: BLOOD UNIT # : [id number] RELEASED 05/02/17 Comment: Ingrid Sun Blood product special preparation [Type] (05-02-2017 21:51) Blood BLOOD complet product 017 UNIT ed 21:51 RELEASE special prepara tion [Type] Leukocyte reduction of packed red blood (05-02-2017 16:40) Leukocy BLOOD complet te 017 UNIT ed reducti 16:40 RELEASE on of BLOOD packed UNIT red RELEASE blood L Comment: Comment: BLOOD UNIT # : [id number] RELEASED 05/02/17 Comment: Lilia Burton Comment: Comment: [...] SQUARE METERS Comment: If this patient is -Greenlandic, then multiply the Comment: result by 1.210. [...] blood 06:40 platele t mean volume karsten Glenn % = 6.6 % 1.7-9.3 complet 017 [...] D deficiency has been defined by the [place] of Comment: Medicine and an Endocrine Society practice guideline as a Comment: level of serum 25-OH vitamin D less than 20 ng/mL (1,2). Comment: The Endocrine Society went on to further define vitamin D Comment: insufficiency as a level between 21 and 29 ng/mL (2). Comment: 1. IOM ([place] of Medicine). 2010. Dietary reference Comment: intakes for calcium and D. [place]: The Comment: [employer]. Comment: 2. Melchor MF, Gamal GIANG, Chanda JUÁREZ, et al. Comment: Evaluation, treatment, and prevention of vitamin D Comment: deficiency: an Endocrine Society clinical practice Comment: guideline. JCEM. 2010; 96(7):1911-30. Comment: Performed at: [facility] Comment: [id number], [place] [id number] Comment: Political Theory Professor: Tian Holt PhD, Phone: [phone] Iron and TIBC (05-02-2017 06:00) Iron, = [...] changing to: 232-1245 pg/mL. Comment: Performed at: [facility] Comment: [id number], [place] [id number] Comment: Political Theory Professor: Tian Holt PhD, Phone: [phone] Whole blood hemoglobin and hematocrit pa (05-01-2017 [...] 017 K/mm3 ed monocyt 05:45 e count Glenn % = 6.5 % 1.7-9.3 complet 017 [...] SQUARE METERS Comment: If this patient is -Greenlandic, then multiply the Comment: result by 1.210. [...] hematocrit pa (05-01-2017 01:55) Comment: COMMENTS TO PRESCHOOL SPECIAL EDUCATION TEACHER: 1HR POST HGB/HCT FOLLOWING BLOOD Comment: COMPLETION [...] Comment: BLOOD UNIT # : [id number] RELEASED 04/30/17 2210 Comment: Ozzie Luke Comment: [...] Comment: BLOOD UNIT # : [id number] RELEASED 04/30/17 1905 Comment: Ozzie Luke Comment: [...] & Crossmatch panel in Blood (04-30-2017 17:05) [facility] COMPAT complet crossma 017 ed tch 17:05 [interp retatio n] [facility] COMPAT complet crossma 017 ed tch 17:05 [...] blood 09:00 platele t mean volume karsten Glenn % = 7.7 % 1.7-9.3 complet 017 [...] ed blood platele t mean volume karsten Glenn % = 9.5 % 1.7-9.3 complet 017 [...] blood 06:34 platele t mean volume karsten Glenn % = 7.3 % 1.7-9.3 complet 017 [...] SQUARE METERS Comment: If this patient is -Greenlandic, then multiply the Comment: result by 1.210. [...] 017 K/mm3 ed monocyt 06:12 e count Glenn % = 7.5 % 1.7-9.3 complet 017 [...] SQUARE METERS Comment: If this patient is -Greenlandic, then multiply the Comment: result by 1.210. [...] SQUARE METERS Comment: If this patient is -Greenlandic, then multiply the Comment: result by 1.210. [...] blood 06:20 platele t mean volume karsten Glenn % = 8.1 % 1.7-9.3 complet 017 [...] ce] in Blood by Light microsc opy [facility] 2+ complet cells 017 ed [Presen 06:20 [...] Comment: BLOOD UNIT # : [id number] RELEASED 04/06/17 Comment: Buddy Comer Comment: Comment: [...] blood 07:11 platele t mean volume karsten Glenn % = 6.9 % 1.7-9.3 complet 017 [...] 08:07) Comment: SAMPLES DRAWN LATE DUE TO HIGH SCHOOL COMBINATION TEACHER BREAK DOWNS Serum = 145 136-145 complet [...] SQUARE METERS Comment: If this patient is -Greenlandic, then multiply the Comment: result by 1.210. [...] 08:00) Comment: SAMPLES DRAWN LATE DUE TO HIGH SCHOOL COMBINATION TEACHER BREAKDOWNS Blood = 100 complet total 017 [...] 08:00) Comment: SAMPLES DRAWN LATE DUE TO HIGH SCHOOL COMBINATION TEACHER BREAKDOWNS Blood = 15.3 4.8-10. complet leukocy [...] blood 08:00 platele t mean volume karsten Glenn % = 5.9 % 1.7-9.3 complet 017 [...] Comment: BLOOD UNIT # : [id number] RELEASED 04/04/17 Comment: Ingrid Sun Blood product special preparation [Type] (04-04-2017 22:15) Blood BLOOD complet product 017 UNIT ed 22:15 RELEASE special prepara tion [Type] Leukocyte reduction of packed red blood (04-04-2017 17:42) Leukocy BLOOD complet te 017 UNIT ed reducti 17:42 RELEASE on of BLOOD packed UNIT red RELEASE blood L Comment: BLOOD UNIT # : [id number] RELEASED A POS Comment: 04/04/17 Comment: Ragini [...] B12 ser/plas (04-04-2017 14:19) Comment: COMMENTS TO [employer]CHO[employer] SPECIAL EDUCATION TEACHER: use blood drawn from ER if Comment: possible Vitamin = 519 211-946 complet B12 017 pg/mL ed ser/eliud 14:19 s Comment: Performed at: [facility] Comment: [id number], [place] [id number] Comment: Political Theory Professor: Tian Holt PhD, Phone: [phone] Serum or plasma ferritin measurement (ma (04-04-2017 14:19) Comment: COMMENTS TO PRESCHO[employer] SPECIAL EDUCATION TEACHER: use blood drawn from ER if Comment: possible Serum -- = 39 8-388 complet or 017 ng/mL ed plasma 14:19 ferriti n measure ment (wv Automated blood reticulocytes count (num (04-04-2017 14:19) Comment: COMMENTS TO PRESCHOOL SPECIAL EDUCATION TEACHER: use blood drawn from ER if Comment: possible Automat = 4.9 % 0.9-3.2 complet ed 017 ed blood 14:19 reticul ocytes count (num Iron and TIBC (10-30-2017 14:19) Comment: COMMENTS TO PRESCHOOL SPECIAL EDUCATION TEACHER: use blood drawn from ER if Comment: possible Serum 04-04-2 = 7 % 15-55 complet or 017 ed plasma 14:19 iron saturat ion measure m Comment: Performed at: [facility] Comment: [id number] [facility], [place], [place] [id number] Comment: Political Theory Professor: Tian Holt PhD, Phone: [phone] Iron, 2 = 17 27-139 complet serum [...] blood 14:19 platele t mean volume karsten Glenn % 2 = 5.4 % 1.7-9.3 complet [...] SQUARE METERS Comment: If this patient is -Greenlandic, then multiply the Comment: result by 1.210. [...] SQUARE METERS Comment: If this patient is -Greenlandic, then multiply the Comment: result by 1.210. [...] blood 06:54 platele t mean volume karsten Glenn % = 9.2 % 1.7-9.3 complet 017 [...] ed ser/eliud 06:54 s Comment: Performed at: [facility] Comment: [id number] [facility], [place], [place] [id number] Comment: Political Theory Professor: Tian Holt PhD, Phone: [phone] Comprehensive metabolic panel (03-13-2017 12:34) Protein = [...] SQUARE METERS Comment: If this patient is -Greenlandic, then multiply the Comment: result by 1.210. [...] blood 12:34 platele t mean volume karsten Glenn % = 8.3 % 1.7-9.3 complet 017 [...]
--- OUTSIDE RECORDS SUMMARY | 2017-05-10 11:52 | External Medical Summary Rpt | CCD ---
Demographics Preferred Language Nepali Marital Status Unknown Jainism Affiliation Unknown Race Unknown Ethnic Group Unknown Author Author , [place] COLEMAN Address Unknown Phone Immunization Unable to retrieve immunization data due to connection failure with Immunization Registry. Please try again later.
--- OUTSIDE RECORDS SUMMARY | 2017-05-10 11:52 | External Medical Summary Rpt | CCD ---
Demographics Preferred Language Lithuanian Marital Status Unknown Moravian Affiliation Unknown Race Unknown Ethnic Group Unknown Author Author , [place] COLEMAN Address Unknown Phone Immunization Unable to retrieve immunization data due to connection failure with Immunization Registry. Please try again later.
--- OUTSIDE RECORDS SUMMARY | 2017-05-10 11:58 | External Medical Summary Rpt ---
Author Author [facility], [facility] [employer] Organization [facility] Address Unknown Phone Unavailable Results Hemoglobin & Hematocrit panel in Blood Observa Value Referen Units Interpr Notes Date tion ce etation Range Hematocri 37.0 - % Low No May 03 t [Volume 47.0 informati 2016 on in 12:20 PM Fraction] source of Blood data Hemoglobi 12.2 - g/dL Low No May 03 n 16.2 informati 2016 [Mass/vol on in 12:20 PM ume] in source Blood data Basic metabolic panel in Blood Observa Value Referen Units Interpr Notes Date tion ce etation Range Urea 7 - 18 mg/dL No No May 03 nitrogen informati informati 2016 5:30 [Mass/vol on in on in AM ume] in source source Serum or data data Plasma Calcium 8.5 - mg/dL Low No May 03 [Mass/vol 10.1 informati 2017 5:30 ume] in on in AM Serum or source Plasma data Chloride 98 - 107 mmoL/L Normal No May 03 [Moles/vo informati 2017 5:30 lume] in on in AM Serum or source Plasma data Carbon 21.0 - mmoL/L Low No May 03 dioxide, 32.0 informati 2016 5:30 total on in AM [Moles/vo source lume] in data Serum or Plasma Creatinin 0.55 - mg/dL No No May 03 e 1.02 informati informati 2016 5:30 [Mass/vol on in on in AM ume] in source source Serum or data data Plasma Creatinin 50 - 200 ML/MIN No No May 03 e renal informati informati 2016 5:30 clearance on in on in AM source source predicted data data by Cockcroft -Gault formula Estimated 59- ML/MIN No REFERENCE May 03 informati RANGE: 2017 5:30 glomerula on in >60 AM r source ML/MIN/1. filtratio data 73 SQUARE n rate METERSIf (GF this patient is -A merican, then multiply theresult by 1.210. Glucose 74 - 106 mg/dL Normal May 03 [Mass/vol informati 2016 5:30 ume] in on in AM Serum or source Plasma data Potassium 3.5 - 5.1 mmoL/L Low May 03 informati 2016 5:30 [Moles/vo on in AM lume] in source Serum or data Plasma Sodium 136 - 145 mmoL/L Low No May 03 [Moles/vo informati 2016 5:30 lume] in on in AM Serum or source Plasma data CBC W Auto Differential panel in Blood Observa Value Referen Units Interpr Notes Date tion ce etation Range Basophils 0 - 0.2 K/MM3 Normal No May 03 informati 2016 5:30 [#/volume on in AM ] in source Blood by data Automated count Basophils 0.1 - 2.0 % Normal No May 03 / informati 2016 5:30 leukocyte on in AM s in source Blood by data Automated count Eosinophi 0.0 - 0.4 K/mm3 Normal May 03 ls informati 2016 5:30 [#/volume on in AM ] in source Blood by data Automated count Eosinophi 0.1 - % Normal May 03 ls/100 12.0 informati 2016 5:30 leukocyte on in AM s in source Blood by data Automated count Granulocy 1.8 - 7.8 K/mm3 Normal No May 03 olya informati 2016 5:30 [#/volume on in AM ] in source Blood by data Automated count Granulocy 37.0 - % High No May 03 olya/100 80.0 informati 2016 5:30 leukocyte on in AM s in source Blood by data Automated count Hematocri 37.0 - % Low May 03 t [Volume 47.0 informati 2016 5:30 on in AM Fraction] source of Blood data Hemoglobi 12.2 - g/dL Low May 03 n 16.2 informati 2016 5:30 [Mass/vol on in AM ume] in source Blood data Lymphocyt 0.7 - 4.5 K/mm3 Normal May 03 es informati 2016 5:30 [#/volume on in AM ] in source Unspecifi data ed specimen by Automated count Lymphocyt 10 - 50.0 % Low May 03 es informati 2016 5:30 [#/volume on in AM ] in source Unspecifi data ed specimen by Automated count Erythrocy 27 - 31.2 pg Normal No May 03 te mean informati 2016 5:30 corpuscul on in AM ar source hemoglobi data n [Entitic mass] Erythrocy 31.8 - g/dl Normal No May 03 te mean 35.4 informati 2016 5:30 corpuscul on in AM ar source hemoglobi data n concentra tion [Mass/vol ume] by Automated count Erythrocy 82.2 - fl Normal No May 03 te mean 97.8 informati 2016 5:30 corpuscul on in AM ar volume source [Entitic data volume] by Automated count Monocytes 0.1 - 1.0 K/mm3 Normal No May 03 informati 2016 5:30 [#/volume on in AM ] in source Blood by data Automated count Monocytes 1.7 - 9.3 % Normal No May 03 /100 informati 2016 5:30 leukocyte on in AM s in source Blood by data Automated count Platelet 7.4 - fl Normal May 03 mean 10.4 informati 2016 5:30 volume on in AM [Entitic source volume] data in Blood by Automated count Platelets 142 - 424 K/mm3 Normal No May 03 informati 2016 5:30 [#/volume on in AM ] in source Blood data Erythrocy 4.2 - 5.4 M/mm3 Low No May 03 olya informati 2016 5:30 [#/volume on in AM ] in source Amniotic data fluid Erythrocy 11.5 - % High No May 03 te 17.5 informati 2016 5:30 distribut on in AM ion width source [Entitic data volume] by Automated count Leukocyte 4.8 - K/MM3 Normal No May 03 s 10.8 ati 2016 5:30 [#/volume on in AM ] in source Blood data Hemoglobin & Hematocrit panel in Blood Observa Value Referen Units Interpr Notes Date tion ce etation Range COMMENTS TO APPLICATIONS PACKAGER: POST TRANSFUSION Hematocri 37.0 - % Low No May 03 t [Volume 47.0 informati 2016 1:35 on in AM Fraction] source of Blood data Hemoglobi 12.2 - g/dL Low May 03 n 16.2 2017 1:35 [Mass/vol AM ume] in Blood Blood product special preparation [Type] Observa Value Referen Units Interpr Notes Date tion ce etation Range Blood BLOOD No No No BLOOD May 02 product UNIT informa informa informa UNIT # 2017 RELEASE ti in in in : W0382 9:51 PM special source source source 17 data data data [id number] prepara RELEASE tion D [Type] 7OTaylor Barr Blood product special preparation [Type] Observa Value Referen Units Interpr Notes Date ce etation Range Blood BLOOD No No No BLOOD May 02 product UNIT informa informa informa UNIT # 2017 RELEASE tion in in in : 4:40 PM special source source source [id number] data data data [id number] prepara 9 ti RELEASE [Type] D 7CLilia bates POS Hemoglobin & Hematocrit panel in Blood Observa Value Referen Units Interpr Notes Date ce etation Range Hematocri 37.0 - % Low No May 02 t [Volume 47.0 informati 2016 2:29 on in PM Fraction] source of Blood data Hemoglobi 12.2 - g/dL Low No May 02 n 16.2 informati 2017 2:29 [Mass/vol on in PM ume] in source Blood data CBC W Auto Differential panel in Blood Observa Value Referen Units Interpr Notes Date ce etation Range Basophils 0 - 0.2 K/MM3 Normal No May 02 informati 2016 6:40 [#/volume on in AM ] in source Blood by data Automated count Basophils 0.1 - 2.0 % Normal No May 02 informati 2016 6:40 leukocyte on in AM s in source Blood by data Automated count Eosinophi 0.0 - 0.4 K/mm3 Normal No May 02 ls informati 2016 6:40 [#/volume on in AM ] in source Blood by data Automated count Eosinophi 0.1 - % Normal No May 02 ls/100 12.0 informati 2016 6:40 leukocyte on in AM s in source Blood by data Automated count Granulocy 1.8 - 7.8 K/mm3 Normal No May 02 olya informati 2016 6:40 [#/volume on in AM ] in source Blood by data Automated count Granulocy 37.0 - % Normal No May 02 olya/100 80.0 informati 2016 6:40 leukocyte on in AM s in source Blood by data Automated count Hematocri 37.0 - % Low No May 02 t [Volume 47.0 informati 2017 6:40 on in AM Fraction] source of Blood data Hemoglobi 12.2 - g/dL Low May 02 n 16.2 informati 2017 6:40 [Mass/vol on in AM ume] in source Blood data Lymphocyt 0.7 - 4.5 K/mm3 Normal No May 02 es informati 2017 6:40 [#/volume on in AM ] in source Unspecifi data ed specimen by Automated count Lymphocyt 10 - 50.0 % Normal No May 02 es informati 2017 6:40 [#/volume on in AM ] in source Unspecifi data ed specimen by Automated count Erythrocy 27 - 31.2 pg Normal May 02 te mean informati 2017 6:40 corpuscul on in AM ar source hemoglobi data n [Entitic mass] Erythrocy 31.8 - g/dl Normal May 02 te mean 35.4 informati 2017 6:40 corpuscul on in AM ar source hemoglobi data n concentra tion [Mass/vol ume] by Automated count Erythrocy 82.2 - fl Normal May 02 te mean 97.8 informati 2017 6:40 corpuscul on in AM ar volume source [Entitic data volume] by Automated count Monocytes 0.1 - 1.0 K/mm3 Normal May 02 informati 2017 6:40 [#/volume on in AM ] in source Blood by data Automated count Monocytes 1.7 - 9.3 % Normal No May 02 /100 informati 2017 6:40 leukocyte on in AM s in source Blood by data Automated count Platelet 7.4 - fl Normal May 02 mean 10.4 informati 2017 6:40 volume on in AM [Entitic source volume] data in Blood by Automated count Platelets 142 - 424 K/mm3 Normal May 02 informati 2017 6:40 [#/volume on in AM ] in source Blood data Erythrocy 4.2 - 5.4 M/mm3 Low No May 02 olya informati 2017 6:40 [#/volume on in AM ] in source Amniotic data fluid Erythrocy 11.5 - % High May 02 te 17.5 informati 2017 6:40 distribut on in AM ion width source [Entitic data volume] by Automated count Leukocyte 4.8 - K/MM3 Normal No May 02 s 10.8 informati 2016 6:40 [#/volume on in AM ] in source Blood data Basic metabolic panel in Blood Observa Value Referen Units Interpr Notes Date tion ce etation Range Urea 7 - 18 mg/dL High No May 02 nitrogen informati 2016 6:40 [Mass/vol on in AM ume] in source Serum or data Plasma Calcium 8.5 - mg/dL Normal No May 02 [Mass/vol 10.1 informati 2016 6:40 ume] in on in AM Serum or source Plasma data Chloride 98 - 107 mmoL/L Normal No May 02 [Moles/vo informati 2016 6:40 lume] in on in AM Serum or source Plasma data Carbon 21.0 - mmoL/L Normal No May 02 dioxide, 32.0 informati 2016 6:40 total on in AM [Moles/vo source lume] in data Serum or Plasma Creatinin 0.55 - mg/dL Normal No May 02 e 1.02 informati 2016 6:40 [Mass/vol on in AM ume] in source Serum or data Plasma Creatinin 50 - 200 ML/MIN Low No May 02 e renal informati 2016 6:40 clearance on in AM source predicted data by Cockcroft -Gault formula Estimated 59- ML/MIN No REFERENCE May 02 informati RANGE: 2017 6:40 glomerula on in >60 AM r source ML/MIN/1. filtratio data 73 SQUARE n rate METERSIf (GF this patient is -A merican, then multiply theresult by 1.210. Glucose 74 - 106 mg/dL Normal No May 02 [Mass/vol informati 2016 6:40 ume] in on in AM Serum or source Plasma data Potassium 3.5 - 5.1 mmoL/L Low May 02 2016 6:40 [Moles/vo CRITICAL AM lume] in RESULTS Serum or Plasma RESU LTS CALLED TO: JUAN ANTONIO 05/02/17 0724 Vicente Comer e Sodium 136 - 145 mmoL/L Low No May 02 [Moles/vo informati 2016 6:40 lume] in on in AM Serum or source Plasma data Cobalamin (Vitamin B12) [Mass/volume] in Serum Observa Value Referen Units Interpr Notes Date ti ce etation Range Cobalamin 211 - 946 pg/mL No Effecti May 02 (Vitamin informati ve 2016 6:00 B12) on in May AM [Mass/vol source 2016 ume] in data the Serum reference interval* *for Vitamin B12 will be changing to: 232-1245 pg/mL.Per formed at: - [facility] [id number] [address] [place], [place] [id number] Coil Assembler: Tian Holt PhD, Phone: [phone] Iron and TIBC Observa Value Referen Units Interpr Notes Date ti ce etation Range Iron 250 - 450 ug/dL Low No May 02 binding informati 2016 6:00 capacity on in AM [Mass/vol source ume] in data Serum or Plasma Iron 118 - 369 ug/dL No No May 02 binding informati informati 2016 6:00 capacity. on in on in AM unsaturat source source ed data data [Mass/vol ume] in Serum or Plasma Iron 27 - 139 ug/dL No No May 02 [Mass/vol informati informati 2016 6:00 ume] in on in on in AM Serum or source source Plasma data data Iron 15 - 55 % No No May 02 saturatio informati informati 2016 6:00 n [Mass] on in on in AM in Serum source source or Plasma data data 25-Hydroxyvitamin D [Mass/volume] in Serum or Plasma Observa Value Referen Units Interpr Notes Date ti etation Range 25-Hydrox 30.0 - ng/mL No Vitamin D May 02 yvitamin 100.0 informati 2016 6:00 D on in deficienc AM [Mass/vol source y has ume] in data been Serum or defined Plasma by the [place] ofMedicin e and an Endocrine Society practice guideline as alevel of serum 25-OH vitamin D less than 20 ng/mL (1,2).The Endocrine Society went on to further define vitamin Dinsuffic iency as a level between 21 and 29 ng/mL (2).1. IOM (Institut e of Medicine) . 2010. Dietary reference intakes for calcium and D. Joe garcia DC: [employer] [place] [employer].2. Melchor MF, Gamal GIANG, Stephany Singh JUÁREZ, et al.Evalua tion, treatment , and preventio n of vitamin Ddeficien cy: an Endocrine Society clinical practiceg uimychalyohan. JCEM. 2010; 96(5):191 1-30.Perf ormed at: CB - [facility] [id number] [place], [place] [id number] Coil Assembler: Tian Holt PhD, Phone: [phone] Hemoglobin & Hematocrit panel in Blood Observa Value Referen Units Interpr Notes Date tion ce etation Range Hematocri 37.0 - % Low No May 01 t [Volume 47.0 informati 2016 5:59 on in PM Fraction] source of Blood data Hemoglobi 12.2 - g/dL Low No May 01 n 16.2 informati 2016 5:59 [Mass/vol on in PM ume] in source Blood data Basic metabolic panel in Blood Observa Value Referen Units Interpr Notes Date tion ce etation Range Urea 7 - 18 mg/dL High No May 01 nitrogen informati 2016 5:45 [Mass/vol on in AM ume] in source Serum or data Plasma Calcium 8.5 - mg/dL Normal No May 01 [Mass/vol 10.1 informati 2016 5:45 ume] in on in AM Serum or source Plasma data Chloride 98 - 107 mmoL/L Normal No May 01 [Moles/vo informati 2016 5:45 lume] in on in AM Serum or source Plasma data Carbon 21.0 - mmoL/L Normal No May 01 dioxide, 32.0 informati 2016 5:45 total on in AM [Moles/vo source lume] in data Serum or Plasma Creatinin 0.55 - mg/dL Normal No May 01 e 1.02 informati 2016 5:45 [Mass/vol on in AM ume] in source Serum or data Plasma Creatinin 50 - 200 ML/MIN Low No May 01 e renal informati 2016 5:45 clearance on in AM source predicted data by Cockcroft -Gault formula Estimated 59- ML/MIN No REFERENCE May 01 informati RANGE: 2017 5:45 glomerula on in >60 AM r source ML/MIN/1. filtratio data 73 SQUARE n rate METERSIf (GF this patient is -A merican, then multiply theresult by 1.210. Glucose 74 - 106 mg/dL Normal No May 01 [Mass/vol informati 2016 5:45 ume] in on in AM Serum or source Plasma data Potassium 3.5 - 5.1 mmoL/L Low alert May 01 2016 5:45 [Moles/vo CRITICAL AM lume] in RESULTS Serum or Plasma RESU LTS CALLED TO: Sarahy BRADLEY RN 05/01/17 0640 Jojo Luke Sodium 136 - 145 mmoL/L Normal No May 01 [Moles/vo informati 2016 5:45 lume] in on in AM Serum or source Plasma data CBC W Auto Differential panel in Blood Observa Value Referen Units Interpr Notes Date tion ce etation Range Basophils 0 - 0.2 K/MM3 Normal No May 01 informati 2016 5:45 [#/volume on in AM ] in source Blood by data Automated count Basophils 0.1 - 2.0 % Normal No May 01 informati 2016 5:45 leukocyte on in AM s in source Blood by data Automated count Eosinophi 0.0 - 0.4 K/mm3 Normal No May 01 ls informati 2016 5:45 [#/volume on in AM ] in source Blood by data Automated count Eosinophi 0.1 - % Normal May 01 ls/100 12.0 informati 2016 5:45 leukocyte on in AM s in source Blood by data Automated count Granulocy 1.8 - 7.8 K/mm3 Normal No May 01 olya informati 2016 5:45 [#/volume on in AM ] in source Blood by data Automated count Granulocy 37.0 - % Normal No May 01 olya/100 80.0 informati 2016 5:45 leukocyte on in AM s in source Blood by data Automated count Hematocri 37.0 - % Low May 01 t [Volume 47.0 informati 2016 5:45 on in AM Fraction] source of Blood data Hemoglobi 12.2 - g/dL Low No May 01 n 16.2 informati 2016 5:45 [Mass/vol on in AM ume] in source Blood data Lymphocyt 0.7 - 4.5 K/mm3 Normal No May 01 es informati 2016 5:45 [#/volume on in AM ] in source Unspecifi data ed specimen by Automated count Lymphocyt 10 - 50.0 % Normal No May 01 es informati 2016 5:45 [#/volume on in AM ] in source Unspecifi data ed specimen by Automated count Erythrocy 27 - 31.2 pg Normal No May 01 te mean informati 2016 5:45 corpuscul on in AM ar source hemoglobi data n [Entitic mass] Erythrocy 31.8 - g/dl Normal May 01 te mean 35.4 informati 2016 5:45 corpuscul on in AM ar source hemoglobi data n concentra tion [Mass/vol ume] by Automated count Erythrocy 82.2 - fl Normal No May 01 te mean 97.8 informati 2016 5:45 corpuscul on in AM ar volume source [Entitic data volume] by Automated count Monocytes 0.1 - 1.0 K/mm3 Normal No May 01ati 2016 5:45 [#/volume on in AM ] in source Blood by data Automated count Monocytes 1.7 - 9.3 % Normal No May 01 /100 informati 2016 5:45 leukocyte on in AM s in source Blood by data Automated count Platelet 7.4 - fl Normal May 01 mean 10.4 informati 2016 5:45 volume on in AM [Entitic source volume] data in Blood by Automated count Platelets 142 - 424 K/mm3 Normal No May 01 informati 2016 5:45 [#/volume on in AM ] in source Blood data Erythrocy 4.2 - 5.4 M/mm3 Low No May 01 olya informati 2016 5:45 [#/volume on in AM ] in source Amniotic data fluid Erythrocy 11.5 - % High May 01 te 17.5 informati 2016 5:45 distribut on in AM ion width source [Entitic data volume] by Automated count Leukocyte 4.8 - K/MM3 No May 01 s 10.8 informati informati 2016 5:45 [#/volume on in on in AM ] in source source Blood data data Hemoglobin & Hematocrit panel in Blood Observa Value Referen Units Interpr Notes Date tion ce etation Range COMMENTS TO APPLICATIONS PACKAGER: 1HR POST HGB/HCT FOLLOWING BLOOD COMPLETION Hematocri 37.0 - % Low May 01 t [Volume 47.0 informati 2016 1:55 on in AM Fraction] source of Blood data Hemoglobi 12.2 - g/dL Low No Nov 26 n 16.2 informati 2017 1:55 [Mass/vol on in AM ume] in source Blood data Blood product special preparation [Type] Observa Value Referen Units Interpr Notes Date tion ce etation Range Blood BLOOD No No No BLOOD Apr 30 product UNIT informa informa informa UNIT # 2017 RELEASE tion in tion in in : W0382 10:10 special source source source 17 PM data data data [id number] prepara RELEASE tion D [Type] 7 [id number] rks,Hank nA POSITIV E Blood product special preparation [Type] Observa Value Referen Units Interpr Notes Date tion ce etation Range Blood BLOOD No No No BLOOD Apr 30 product UNIT informa informa informa UNIT # 2017 RELEASE tion in in in : W0382 7:05 PM special source source source 17 data data data [id number] prepara RELEASE tion D [Type] 7 1905Spa rks,Hank nA POSITIV E Blood type & Crossmatch panel in Blood Observa Value Referen Units Interpr Notes Date tion ce etation Range Hold? N Transfuse now? 2 UNITS NOW Major COMPAT No No No No Apr 30 crossma informa informa informa informa 2017 tch tion in tion in tion in tion in 5:05 PM [interp source source source source retatio data data data data n] Major COMPAT No No No No Apr 30 crossma informa informa informa informa 2017 tch tion in tion in tion in tion in 5:05 PM [interp source source source source retatio data data data data n] by Immedia te spin Blood type & Crossmatch panel in Blood Observa Value Referen Units Interpr Notes Date tion ce etation Range Hold? N Transfuse now? 2 UNITS NOW Major COMPAT No No No No Apr 30 crossma informa informa informa informa 2017 tch tion in tion in tion in tion in 5:05 PM [interp source source source source retatio data data data data n] Major COMPAT No No No No Apr 30 crossma informa informa informa informa 2017 tch tion in tion in tion in tion in 5:05 PM [interp source source source source retatio data data data data n] by Immedia te spin Blood type & Crossmatch panel in Blood Observa Value Referen Units Interpr Notes Date tion ce etation Range Hold? N Transfuse now? 2 UNITS NOW Major COMPAT No No No No Apr 30 crossma informa informa informa informa 2017 tch tion in tion in tion in tion in 5:05 PM [interp source source source source retatio data data data data n] Major COMPAT No No No No Apr 30 crossma informa informa informa informa 2017 tch tion in tion in tion in tion in 5:05 PM [interp source source source source retatio data data data data n] by Immedia te spin Blood type & Crossmatch panel in Blood Observa Value Referen Units Interpr Notes Date tion ce etation Range Hold? N Transfuse now? 2 UNITS NOW Blood NEGATIV NEGATIV No No No Apr 30 group E E informa informa informa 2017 antibod tion in tion in tion in 5:05 PM y source source source screen data data data [Presen ce] in Serum or Plasma Rh POSITIV No No No No Apr 30 [Type] E informa informa informa informa 2016 in tion in tion in tion in tion in 5:05 PM Blood source source source source data data data data ABO A No No No No Apr 30 group informa informa informa informa 2016 [Type] tion in tion in tion in tion in 5:05 PM in source source source source Blood data data data data Blood type & Crossmatch panel in Blood Observa Value Referen Units Interpr Notes Date tion ce etation Range Hold? N Transfuse now? 2 UNITS NOW Major COMPAT No No No No Apr 30 crossma informa informa informa informa 2017 tch tion in tion in tion in tion in 5:05 PM [interp source source source source retatio data data data data n] Major COMPAT No No No No Apr 30 crossma informa informa informa informa 2017 tch tion in tion in tion in tion in 5:05 PM [interp source source source source retatio data data data data n] by Immedia te spin CBC W Auto Differential panel in Blood Observa Value Referen Units Interpr Notes Date tion ce etation Range Basophils 0 - 0.2 K/MM3 Normal No Apr 30 informati 2016 9:00 [#/volume on in AM ] in source Blood by data Automated count Basophils 0.1 - 2.0 % Normal No Apr 30 /100 informati 2017 9:00 leukocyte on in AM s in [...] Normal No Apr 30 te mean 35.4 informati 2017 9:00 corpuscul on in AM ar source hemoglobi data n concentra tion [Mass/vol ume] by Automated count Erythrocy 82.2 - fl Normal Apr 30 te mean 97.8 informati 2016 9:00 corpuscul on in AM ar volume source [Entitic data volume] by Automated count Monocytes 0.1 - 1.0 K/mm3 Normal No Apr 302016 9:00 [#/volume on in AM ] in source Blood by data Automated count Monocytes 1.7 - 9.3 % Normal Apr 30 inform2016 9:00 leukocyte on in AM s in [...] 4.2 - 5.4 M/mm3 Low No Apr 302016 9:00 [#/volume on in AM ] in source Amniotic data fluid Erythrocy 11.5 - % High Apr 30 te 17.5 2016 9:00 distribut on in AM ion width source [Entitic data volume] by Automated count Leukocyte 4.8 - K/MM3 Normal Apr 30 s 10.8 2016 9:00 [#/volume on in AM ] in source Blood data CBC W Auto Differential panel in Blood Observa Value Referen Units Interpr Notes Date tion ce etation Range Basophils 0 - 0.2 K/MM3 Normal Apr 282016 [#/volume on in ] in source Blood by data Automated count Basophils 0.1 - 2.0 % Normal No Apr 282016 leukocyte on in s in source Blood by data Automated count Eosinophi 0.0 - 0.4 K/mm3 Normal No Apr 282016 [#/volume on in ] in source Blood by data Automated count Eosinophi 0.1 - % Normal Apr 28 ls/100 12.0 inform2016 leukocyte on in s in source Blood by data Automated count Granulocy 1.8 - 7.8 K/mm3 Normal Apr 282016 [#/volume on in ] in source Blood by data Automated count Granulocy 37.0 - % Normal No Apr 28 olya/100 80.0 inform2016 leukocyte on in s in source Blood by data Automated count Hematocri 37.0 - % Low Apr 28 t [Volume 47.0 2016 on in Fraction] source of Blood data Hemoglobi 12.2 - g/dL Low Apr 28 n 16.2 2016 [Mass/vol on in ume] in source Blood data Lymphocyt 0.7 - 4.5 K/mm3 Normal No Apr 28 es 2016 [#/volume on in ] in source Unspecifi data ed specimen by Automated count Lymphocyt 10 - 50.0 % Normal No Apr 28 es 2016 [#/volume [...] 9.3 % High No Apr 28 /100 2016 leukocyte on in s in source Blood by data Automated count Platelet 7.4 - fl Normal Apr 28 mean 10.4 2016 volume on in [Entitic source volume] data in Blood by Automated count Platelets 142 - 424 K/mm3 Normal Apr 282016 [#/volume on in ] in source Blood data Erythrocy 4.2 - 5.4 M/mm3 Low Apr 28 olya 2016 [#/volume on in ] in source Amniotic data fluid Erythrocy 11.5 - % High Apr 28 te 17.5 2016 distribut on in ion width source [Entitic data volume] by Automated count Leukocyte 4.8 - K/MM3 Normal No Apr 28 s 10.8 2016 [#/volume on in ] in source Blood data DIARRHEA PANEL,PCR Observa Value Referen Units Interpr Notes Date tion ce etation Range Adenovi NOT NOT No No No Apr 10 daphnie DETECTE DETECTE informa informa informa 2016 40+41 D tion in tion in tion [...] tion in TO: 1:00 AM le source toxin data KACIE A+B [Presen 7 2200 ce] in [place], [facility] Ozzie Cryptos NOT NOT No No No [...] Nov 5 DETECTE DETECTE informa informa informa 2017 lamblia D tion in tion in tion in 1:00 AM Ag source source source [Presen data data data ce] in Stool Norovir NOT NOT No No No Nov 5 us Ag DETECTE DETECTE informa informa informa 2017 [Presen [...] 5 cezar DETECTE DETECTE informa informa informa 2016 coli D tion in tion in tion [...] Range Digoxin 1.15 - ng/mL Low No Apr 4 [Mass/vol 2.56 informati 2017 6:34 ume] [...] Plasma Calcium 8.5 - mg/dL Low No Nov 4 [Mass/vol 10.1 informati 2017 6:34 ume] in on in AM Serum or source Plasma data Chloride 98 - 107 mmoL/L Normal No Apr 4 [Moles/vo informati 2017 6:34 lume] in on in AM Serum or source Plasma data Carbon 21.0 - mmoL/L Low No Nov 4 dioxide, 32.0 informati 2017 6:34 total on in AM [Moles/vo source lume] in data Serum or Plasma Creatinin 0.55 - mg/dL Normal No Apr 4 e 1.02 informati 2016 6:34 [Mass/vol on in AM ume] in source Serum or data Plasma Creatinin 50 - 200 ML/MIN Low No Apr 4 e renal informati 2017 6:34 clearance on in AM source predicted data by Cockcroft -Gault formula Estimated 59- ML/MIN No REFERENCE Apr 4 informati RANGE: 2017 6:34 glomerula on in [...] Plasma Sodium 136 - 145 mmoL/L Normal Apr 09 [Moles/vo informati 2016 6:34 lume] in on in AM Serum or source Plasma data CBC W Auto Differential panel in Blood Observa Value Referen Units Interpr Notes Date tion ce etation Range Basophils 0 - 0.2 K/MM3 Normal No Apr 09 inform2016 6:34 [#/volume on in AM ] in source Blood by data Automated count Basophils 0.1 - 2.0 % Normal No Apr 4 /100 informati 2017 6:34 leukocyte on in AM s in source Blood by data Automated count Eosinophi 0.0 - 0.4 K/mm3 Normal No Apr 4 ls informati 2016 6:34 [#/volume on in AM ] in source Blood by data Automated count Eosinophi 0.1 - % Normal No Apr 4 ls/100 12.0 informati 2016 6:34 leukocyte on in AM s in source Blood by data Automated count Granulocy 1.8 - 7.8 K/mm3 High No Apr 4 olya informati 2017 6:34 [#/volume on in AM ] in source Blood by data Automated count Granulocy 37.0 - % High No Apr 4 olya/100 80.0 informati 2016 6:34 leukocyte on in AM s in source Blood by data Automated count Hematocri 37.0 - % Low No Apr 4 t [Volume 47.0 informati 2017 6:34 on in AM Fraction] source of Blood data Hemoglobi 12.2 - g/dL Low No Apr 4 n 16.2 informati 2017 6:34 [Mass/vol on in AM ume] in source Blood data Lymphocyt 0.7 - 4.5 K/mm3 Normal No Apr 4 es informati 2017 6:34 [#/volume on in AM ] in source Unspecifi data ed specimen by Automated count Lymphocyt 10 - 50.0 % Low No Apr 4 es informati 2017 6:34 [#/volume on in AM ] in source Unspecifi data ed specimen by Automated count Erythrocy 27 - 31.2 pg Normal No Apr 4 te mean informati 2017 6:34 corpuscul on in AM ar source hemoglobi data n [Entitic mass] Erythrocy 31.8 - g/dl Normal No Apr 4 te mean 35.4 informati 2017 6:34 corpuscul on in AM ar source hemoglobi data n concentra tion [Mass/vol ume] by Automated count Erythrocy 82.2 - fl Normal No Apr 4 te mean 97.8 informati 2017 6:34 corpuscul on in AM ar volume [...] 424 K/mm3 Normal No Apr 4 informati 2017 [...] Low No Apr 3 [Mass/vol 10.1 informati 2016 6:12 ume] in on in AM Serum or source Plasma data Chloride 98 - 107 mmoL/L Normal No Apr 3 [Moles/vo informati 2016 6:12 lume] in on in AM Serum or source Plasma data Carbon 21.0 - mmoL/L Low No Apr 08 dioxide, 32.0 informati 2017 6:12 total on in AM [Moles/vo source lume] in data Serum or Plasma Creatinin 0.55 - mg/dL No No Apr 3 e 1.02 informati informati 2017 6:12 [Mass/vol on in on in AM ume] in source source Serum or data data Plasma Creatinin 50 - 200 ML/MIN Low No Apr 3 e renal informati 2016 6:12 clearance on in AM source predicted data by Cockcroft -Gault formula Estimated 59- ML/MIN No REFERENCE Apr 3 informati RANGE: 2017 6:12 glomerula on [...] 136 - 145 mmoL/L Normal No Apr 3 [Moles/vo informati 2016 6:12 lume] in on in AM Serum or source Plasma data CBC W Auto Differential panel in Blood Observa Value Referen Units Interpr Notes Date tion ce etation Range Basophils 0 - 0.2 K/MM3 Normal No Apr 3 informati 2016 6:12 [#/volume on in AM ] in [...] No Nov 3 te mean 35.4 informati 2017 6:12 corpuscul on in AM [...] % Normal No Nov 3 /100 informati 2016 6:12 leukocyte on in AM s in [...] Erythrocy 11.5 - % Normal No Nov 3 te 17.5 informati 2017 6:12 distribut [...] Range Hematocri 37.0 - % Low No Apr 2 t [Volume 47.0 informati 2017 2:12 on in PM Fraction] source of Blood data Hemoglobi 12.2 - g/dL Low No Apr 2 n 16.2 informati 2017 2:12 [Mass/vol [...] - 2.0 % Normal No Nov 2 100 informati 2016 6:20 leukocyte on in AM s in source Blood by data Automated count Eosinophi 0.0 - 0.4 K/mm3 Normal No Nov 2 ls informati 2016 6:20 [#/volume on in AM ] in source Blood by data Automated count Eosinophi 0.1 - % Normal No Nov 2 ls/100 12.0 informati 2016 6:20 leukocyte on [...] Nov 2 cells informa informa informa informa 2017 [Presen tion in tion in tion in tion in 6:20 AM ce] in source source source source Blood data data data data by Light microsc opy Hypochr 1+ No No No No Nov 2 omia informa informa informa informa 2017 [Presen tion in tion in tion in tion in 6:20 AM ce] in source source source source Blood data data data data LYMPH 8 10 - 50 % Low No Nov 2 informa 2017 tion in 6:20 AM source data Monocytes 2 - 9 % Normal No Nov 2 /100 informati 2017 6:20 leukocyte on in AM s in source Blood by data Automated count Platele NORMAL No No No No Nov 2 ts informa informa informa informa 2016 [Presen [...] microsc opy Cells No #CELLS No No Nov 2 Counted informati informati informati 2017 6:20 Total [#] on in on in on in AM in Blood source source source data data data Basic metabolic panel in Blood Observa Value Referen Units Interpr Notes Date tion ce etation Range Urea 7 - 18 mg/dL High No Nov 2 nitrogen informati 2016 6:20 [Mass/vol on in AM ume] in source Serum or data Plasma Calcium 8.5 - mg/dL Low No Apr 2 [Mass/vol 10.1 informati 2017 6:20 ume] in on in AM Serum or source Plasma data Chloride 98 - 107 mmoL/L Normal No Apr 2 [Moles/vo informati 2016 6:20 lume] in on in AM Serum or source Plasma data Carbon 21.0 - mmoL/L Low No Apr 2 dioxide, 32.0 informati 2017 6:20 total on in AM [Moles/vo source lume] in data Serum or Plasma Creatinin 0.55 - mg/dL High No Nov 2 e 1.02 informati 2017 6:20 [Mass/vol on in AM ume] in source Serum or data Plasma Creatinin 50 - 200 ML/MIN Low No Nov 2 e renal informati 2017 6:20 clearance on in AM source predicted [...] Potassium 3.5 - 5.1 mmoL/L Normal No Nov 2 informati 2016 6:20 [Moles/vo on in AM lume] in source Serum or data Plasma Sodium 136 - 145 mmoL/L Low No Apr 2 [Moles/vo informati 2016 6:20 lume] in on in AM Serum or source Plasma data Hemoglobin & Hematocrit panel in Blood Observa Value Referen Units Interpr Notes Date tion ce etation Range Hematocri 37.0 - % Low No Apr 1 t [Volume 47.0 informati 2017 1:45 [...] source source 17 AM data data data [id number] prepara RELEASE tion D [Type] 7Guthdi cunningham,Buddy Nagy POSITIV E CBC W Auto [...] Eosinophi 0.1 - % Normal No Apr 06 ls/100 12.0 informati 2017 7:11 leukocyte on in AM s in source Blood by data Automated count Granulocy 1.8 - 7.8 K/mm3 High No Nov 1 olya informati 2017 7:11 [#/volume on in AM ] in source Blood by data Automated count Granulocy 37.0 - % High No Nov 1 olya/100 80.0 informati 2017 7:11 leukocyte on in AM s in source Blood by data Automated count Hematocri 37.0 - % Low No Apr 1 t [Volume 47.0 informati 2017 7:11 on in AM Fraction] source of Blood data Hemoglobi 12.2 - g/dL Low alert Nov n 16.2 2016 7:11 [Mass/vol CRITICAL AM ume] in RESULTS Blood RESU LTS CALLED TO: LITA Regan 04/06/17 0806 [address] [place] Lymphocyt 0.7 - 4.5 K/mm3 Normal No Apr 06 es informati 2017 7:11 [#/volume on in AM ] in source Unspecifi data ed specimen by Automated count Lymphocyt 10 - 50.0 % Low No Apr 06 es informati 2016 7:11 [#/volume on in [...] Erythrocy 82.2 - fl Normal No Apr 1 te mean 97.8 informati 2017 7:11 [...] Platelet 7.4 - fl Low No Apr 1 mean 10.4 informati 2017 7:11 volume [...] etation Range SAMPLES DRAWN LATE DUE TO BUSINESS SUPPORT ADMINISTRATOR BREAK DOWNS Urea 7 - 18 mg/dL High No Apr 05 nitrogen informati 2016 8:07 [Mass/vol on in AM ume] in source Serum or data Plasma Calcium 8.5 - mg/dL Normal No Apr 05 [Mass/vol 10.1 informati 2017 8:07 ume] in on in AM Serum [...] 5.1 mmoL/L Normal No Apr 05 informati 2016 8:07 [Moles/vo on in AM lume] in source Serum or data Plasma Sodium 136 - 145 mmoL/L Normal No Apr 05 [Moles/vo informati 2016 8:07 lume] in on in AM Serum or source Plasma data CBC W Auto Differential panel in Blood Observa Value Referen Units Interpr Notes Date tion ce etation Range SAMPLES DRAWN LATE DUE TO BUSINESS SUPPORT ADMINISTRATOR BREAKDOWNS Basophils 0 - 0.2 K/MM3 Normal [...] fl Normal No Apr 05 mean 10.4 ati 2016 8:00 volume on in AM [Entitic source volume] data in Blood by Automated count Platelets 142 - 424 K/mm3 Normal No Apr 052016 8:00 [#/volume on in AM ] in source Blood data Erythrocy 4.2 - 5.4 M/mm3 Low No Apr 05 olya ati 2016 8:00 [#/volume on in AM ] in source Amniotic data fluid Erythrocy 11.5 - % Normal No Apr 05 te 17.5 informati 2016 8:00 distribut on in AM ion width source [Entitic data volume] by Automated count Leukocyte 4.8 - K/MM3 High No Apr 05 s 10.8 ati 2016 8:00 [#/volume on in AM ] in source Blood data Differential panel, method unspecified - Observa Value Referen Units Interpr Notes Date tion ce etation Range SAMPLES DRAWN LATE DUE TO BUSINESS SUPPORT ADMINISTRATOR BREAKDOWNS Acantho 1+ No No No No [...] 10 - 50 % Normal No Apr 052016 tion in 8:00 AM source data Monocytes 2 - 9 % Normal No Apr 05ati 2016 8:00 leukocyte on in AM s in source Blood by data Automated count Nucleated 0 - 1 % High No Apr 052016 8:00 erythrocy on in AM olya source [...] No Apr 05 Counted informati informati informati 2017 8:00 Total [#] on in on in on in AM in Blood source source source data data data Blood product special preparation [Type] Observa Value Referen Units Interpr Notes Date ti ce etation Range Blood BLOOD No No No BLOOD Apr 04 product UNIT informa informa informa UNIT # 2017 RELEASE tion in in in : W0382 10:15 special source source source 17 PM data data data [id number] prepara RELEASE tion D [Type] 7[place] n Blood product special preparation [Type] Observa Value Referen Units Interpr Notes Date ti ce etation Range Blood BLOOD No No No BLOOD Apr 04 product UNIT informa informa informa UNIT # 2017 RELEASE tion in in in : W0382 5:42 PM special source source source 17 data data data [id number] prepara RELEASE tion D A [Type] POS03/08 Qui nn,[place] Blood type & Crossmatch panel in Blood Observa Value Referen Units Interpr Notes Date ti ce etation Range Hold? N Transfuse now? 1 UNIT NOW Major COMPAT No No No No Apr 04 crossma informa informa informa informa 2017 tch tion in tion in ti in in 3:51 PM [interp source source source source retatio data data data data n] Major COMPAT No No No No Apr 04 crossma informa informa informa informa 2017 tch tion in tion in ti in ti in 3:51 PM [interp source source source source retatio data data data data n] by Immedia te spin Blood type & Crossmatch panel in Blood Observa Value Referen Units Interpr Notes Date ti ce etation Range Blood NEGATIV NEGATIV No [...] Date tion ce etation Range COMMENTS TO APPLICATIONS PACKAGER: use blood drawn from ER if possible Cobalamin 211 - 946 pg/mL No Performed Apr 04 (Vitamin informati at: CB 2016 2:19 B12) on in - [facility] PM [Mass/vol source ume] in data [place] [address] [place] [id number] Coil Assembler: Tian Holt PhD, Phone: [phone] Iron and TIBC Observa Value Referen Units Interpr Notes Date tion ce etation Range COMMENTS TO APPLICATIONS PACKAGER: use blood drawn from ER if possible Iron 250 - 450 ug/dL No No Apr 04 binding informati informati 2016 2:19 capacity on in on in PM [Mass/vol source source ume] in data data Serum or Plasma Iron 118 - 369 ug/dL No No Apr 04 binding informati informati 2016 2:19 capacity. on in on in PM unsaturat source source ed data data [Mass/vol ume] in Serum or Plasma Iron 27 - 139 ug/dL Low No Apr 04 [Mass/vol informati 2017 2:19 ume] in on in PM Serum or source Plasma data Iron 15 - 55 % Low Performed Apr 04 saturatio at: CB 2016 2:19 n [Mass] - [facility] PM in Serum or Plasma [address] [id number] Coil Assembler: Tian Holt PhD, Phone: [phone] Ferritin [Mass/volume] in Serum or Plasma Observa Value Referen Units Interpr Notes Date ti ce etation Range COMMENTS TO APPLICATIONS PACKAGER: use blood drawn from ER if possible Ferritin 8 - 388 ng/mL Normal No Apr 04 [Mass/vol informati 2017 2:19 ume] in on in PM Serum or source Plasma data Reticulocytes [#/volume] in Blood by Automated count Observa Value Referen Units Interpr Notes Date tion ce etation Range COMMENTS TO APPLICATIONS PACKAGER: use blood drawn from ER if possible Reticuloc 0.9 - 3.2 % High No Apr 04 ytes inform2016 2:19 [#/volume on in PM ] in source Blood by data Automated count CBC W Auto Differential panel in Blood Observa Value Referen Units Interpr Notes Date tion ce etation Range Basophils 0 - 0.2 K/MM3 Normal No Apr 04 inform2016 2:19 [#/volume on in PM ] in source Blood by data Automated count Basophils 0.1 - 2.0 % Normal No Apr 04 /100 informati 2016 2:19 leukocyte on in [...] Normal No Apr 04 te mean informati 2016 2:19 corpuscul on in PM ar source hemoglobi data n [Entitic mass] Erythrocy 31.8 - g/dl Low No Apr 04 te mean 35.4 informati 2017 2:19 corpuscul on in PM ar source hemoglobi data n concentra tion [Mass/vol ume] by Automated count Erythrocy 82.2 - fl Normal No Apr 04 te mean 97.8 informati 2016 2:19 corpuscul on in PM ar volume source [Entitic data volume] by Automated count Monocytes 0.1 - 1.0 K/mm3 Normal No Mar 30 informati 2017 2:19 [#/volume on in PM ] in source Blood by data Automated count Monocytes 1.7 - 9.3 % Normal No Oct 30 /100 informati 2016 2:19 leukocyte on in PM s in source Blood by data Automated count Platelet 7.4 - fl Low No Mar 30 mean 10.4 informati 2016 2:19 volume on [...] Erythrocy 11.5 - % Normal No Mar 30 te 17.5 informati 2016 2:19 distribut on [...] High No Mar 30 kinase.MB alert informati 2016 2:19 /Creatine on in PM source kinase.to [...] Troponin 0.00 - ng/mL Normal No Mar 30 I.cardiac 0.06 informati 2016 2:19 on in PM [Mass/vol source ume] in data Serum or Plasma Comprehensive metabolic 2000 panel in Serum or Plasma Observa Value Referen Units Interpr Notes Date tion ce etation Range Albumin/G 1.1 - 1.8 No Low No Mar 30 lobulin informati informati 2016 2:19 [Mass on in on in PM [...] mg/dL Normal No Mar 30 .total informati 2017 2:19 [Mass/vol on in PM ume] in source Serum or data Plasma Urea 7 - 18 mg/dL High No Apr 04 nitrogen informati 2017 2:19 [Mass/vol on in [...] Creatinin 0.55 - mg/dL High No Apr 04 e 1.02 informati 2017 2:19 [Mass/vol on in PM ume] in source Serum or data Plasma Creatinin 50 - 200 ML/MIN Low No Mar 30 e renal informati 2016 2:19 clearance on in PM source predicted data by Cockcroft -Gault formula Estimated 59- ML/MIN Low REFERENCE Oct 30 RANGE: 2016 2:19 glomerula >60 PM r ML/MIN/1. filtratio 73 SQUARE n rate METERSIf (GF this patient is -A merican, then multiply theresult by 1.210. Globulin 1.3 - 3.2 gm/dL High No Apr 04 [Mass/vol informati 2017 2:19 ume] in on in PM Serum source data Glucose 74 - 106 mg/dL High No Mar 30 [Mass/vol informati 2017 2:19 ume] in on in PM Serum or source Plasma data Potassium 3.5 - 5.1 mmoL/L Normal No Mar 30 informati 2017 2:19 [Moles/vo on in PM lume] in source Serum or data Plasma Sodium 136 - 145 mmoL/L Normal No Oct 30 [Moles/vo informati 2016 2:19 lume] in on in PM Serum or source Plasma data Aspartate 15 - 37 U/L Low No Apr 04 informati 2016 2:19 aminotran on in PM sferase source [...] U/L Normal No Apr 04 [Enzymati informati 2016 2:19 c on in PM activity/ source volume] data in Serum or Plasma INR in Blood by Coagulation assay Observa Value Referen Units Interpr Notes Date ti ce etation Range IS PATIENT ON ANTICOAGULANTS? [...] Normal No Apr 04 in time 11.8 informati 2016 2:14 (PT) in on in PM Platelet source poor data plasma by Coagulati on assay Activated partial thrombplastin time (aPTT) in Platelet poor plasma by Coagulation assay Observa Value Referen Units Interpr Notes Date tion ce etation Range IS PATIENT ON ANTICOAGULANTS? N Activated 23.6 - SECONDS Low No Apr 04 partial 34.0 informati 2016 2:14 thrombpla on in PM stin time [...] [facility] AM [Mass/vol source ume] in data [place] [address] Serum 0 [place], [place] [id number] Coil Assembler: Tian Holt PhD, Phone: [phone] Iron and TIBC Observa Value Referen [...] Calcium 8.5 - mg/dL Normal No Mar 9 [Mass/vol 10.1 informati 2017 6:54 ume] in on in AM Serum or source Plasma data Chloride 98 - 107 mmoL/L Normal No Mar 9 [Moles/vo informati 2016 6:54 lume] in on in AM Serum or source Plasma data Carbon 21.0 - mmoL/L Normal No Mar 9 dioxide, 32.0 informati 2017 6:54 total on in AM [Moles/vo source lume] in data Serum or Plasma Creatinin 0.55 - mg/dL High No Mar 9 e 1.02 informati 2017 6:54 [Mass/vol [...] ng/mL Normal No Mar 9 [Mass/vol informati 2017 6:54 ume] in on in AM Serum or source Plasma data CBC W Auto Differential panel in Blood Observa Value Referen Units Interpr Notes Date tion ce etation Range Basophils 0 - 0.2 K/MM3 Normal No Mar 9 informati 2017 6:54 [#/volume on in AM ] in source Blood by data Automated count Basophils 0.1 - 2.0 % Normal No Mar 14 informati 2017 [...] 9.3 % Normal No Mar 14 informati 2016 6:54 leukocyte on in AM [...] 3.2 % Normal No Mar 14 ytes ati 2016 6:54 [#/volume on in [...] - 1.0 K/mm3 Normal No Mar 8 inform2016 [#/volume on in 12:34 PM ] in source Blood by data Automated count Monocytes 1.7 - 9.3 % Normal No Mar 8 /100 inform2016 leukocyte on in 12:34 PM s in source Blood by data Automated count Platelet 7.4 - fl Normal No Mar 13 mean 10.4 inform2016 volume on in 12:34 PM [Entitic source volume] data in Blood by Automated count Platelets 142 - 424 K/mm3 Normal No Mar 8 2016 [#/volume on in 12:34 PM ] in source Blood data Erythrocy 4.2 - 5.4 M/mm3 Low No Mar 8 olya inform2016 [#/volume on in 12:34 PM [...] Date tion ce etation Range COMMENTS TO APPLICATIONS PACKAGER: PER TX PROTOCOL Cholester < 200 mg/dL No No Sep 13 ol informati informati 2017 5:45 [Moles/vo on in on in AM lume] in source source Unspecifi data data ed specimen Cholester 40 - 60 MG/DL Normal No Sep 13 ol in HDL informati 2016 5:45 on in AM [Mass/vol [...] High No Feb 12 kinase.MB alert informati 2017 6:22 /Creatine on in AM source kinase.to data sergio [Ratio] in Serum or Plasma Creatine 0.0 - 3.6 ng/mL High Feb 15 kinase.MB alert 2017 6:22 CRITICAL AM [Mass/vol [...] 0 - 100 pg/mL High No Feb 12 tic informati 2017 6:22 peptide B [...] - 9.3 % Normal No Sep 12 informati 2017 6:22 leukocyte on in AM [...] M/mm3 Normal No Sep 12 olya informati 2016 6:22 [#/volume on in AM [...] High No Sep 11 olya/100 80.0 informati 2016 6:30 leukocyte on in PM [...] Plasma LTS CALLED TO: TONYA.CLA 02/14/17 1812 Jeffery,[place] nda> 0.5 IS CONSISTEN T WITH MYOCARDIA [...] - 5.1 mmoL/L Normal No Sep 11 inform2016 5:30 [Moles/vo on in PM lume] in [...] K/MM3 Normal No Jan 23 s 10.8 inform2016 [#/volume on in 11:00 AM ] [...] mmoL/L Normal No Dec 23 [Moles/vo informati 2017 6:30 lume] in on in AM Serum or source Plasma data Natriutietic peptide B [Mass/volume] in Serum or Plasma Observa Value Referen Units Interpr Notes Date ti etation Range Natriutie 0 - 100 pg/mL [...] 0.1 - % Normal No Dec 22 ls 12.0 informati 2016 6:20 leukocyte on in [...] - 2.0 % Normal No Dec 21 / informati 2017 5:00 leukocyte on in PM [...] fl Normal No Dec 21 mean 10.4 ati 2016 5:00 volume on in PM [Entitic [...] % Normal No Dec 20 /100 informati 2017 leukocyte on in 11:55 AM s in [...] 78 U/L Low No Dec 20 aminotran 2016 sferase on in 11:55 AM [Enzymati [...]
--- OUTSIDE RECORDS SUMMARY | 2017-05-10 11:58 | External Medical Summary Rpt ---
[...] Date tion ce etation Range COMMENTS TO LAST REMODELER REPAIRER: POST TRANSFUSION Hematocri 37.0 - % Low [...] source source source 17 data data data [id number] prepara RELEASE tion D [Type] 7OTaylor Barr Blood product special preparation [Type] Observa Value Referen Units Interpr Notes Date ce etation Range Blood BLOOD No No No BLOOD May 02 product UNIT informa informa informa UNIT # 2017 RELEASE tion in in in : 4:40 PM special source source source [id number] data data data [id number] prepara 9 ti RELEASE [Type] D 7CLilia [...] changing to: 232-1245 pg/mL.Per formed at: - [facility] [address] [address] [place], [place] [id number] Automatic Bow Maker Machine Tender: Tian Holt PhD, Phone: [phone] Iron and TIBC Observa Value Referen [...] been Serum or defined Plasma by the [place] ofMedicin e and an Endocrine Society practice guideline as alevel of serum 25-OH vitamin D less than 20 ng/mL (1,2).The Endocrine Society went on to further define vitamin Dinsuffic iency as a level between 21 and 29 ng/mL (2).1. IOM (Institut e of Medicine) . 2010. Dietary reference intakes for calcium and D. Joe garcia DC: [employer].2. Melchor MF, Gamal GIANG, Stephany Singh JUÁREZ, et al.Evalua tion, treatment , and preventio n of vitamin Ddeficien cy: an Endocrine Society clinical practiceg uimychalyohan. JCEM. 2010; 96(0):191 1-30.Perf ormed at: CB - [facility] [id number] [place], [place] [id number] Automatic Bow Maker Machine Tender: Tian Holt PhD, Phone: [phone] Hemoglobin & Hematocrit panel in Blood [...] Date tion ce etation Range COMMENTS TO LAST REMODELER REPAIRER: 1HR POST HGB/HCT FOLLOWING BLOOD COMPLETION Hematocri [...] source source 17 PM data data data [id number] prepara RELEASE tion D [Type] 7 2210Spa rks,Hank nA POSITIV E Blood product special preparation [Type] Observa Value Referen Units Interpr Notes Date tion ce etation Range Blood BLOOD No No No BLOOD Apr 30 product UNIT informa informa informa UNIT # 2017 RELEASE tion in in in : W0382 7:05 PM special source source source 17 data data data [id number] prepara RELEASE tion D [Type] 7 1905Spa [...] KACIE A+B [Presen 7 2200 ce] in [place], [facility] Ozzie Cryptos NOT NOT No No No [...] source source 17 AM data data data [id number] prepara RELEASE tion D [Type] 7Guthdi cunningham,Buddy [...] etation Range SAMPLES DRAWN LATE DUE TO SENIOR SCRUM MASTER BREAK DOWNS Urea 7 - 18 mg/dL [...] etation Range SAMPLES DRAWN LATE DUE TO SENIOR SCRUM MASTER BREAKDOWNS Basophils 0 - 0.2 K/MM3 Normal [...] etation Range SAMPLES DRAWN LATE DUE TO SENIOR SCRUM MASTER BREAKDOWNS Acantho 1+ No No No No [...] source source 17 PM data data data [id number] prepara RELEASE tion D [Type] 7O'Taylor Paul n Blood product special preparation [Type] Observa Value Referen Units Interpr Notes Date ti ce etation Range Blood BLOOD No No No BLOOD Apr 04 product UNIT informa informa informa UNIT # 2017 RELEASE tion in in in : W0382 5:42 PM special source source source 17 data data data [id number] prepara RELEASE tion D A [Type] POS03/08 [...] Date tion ce etation Range COMMENTS TO LAST REMODELER REPAIRER: use blood drawn from ER if possible Cobalamin 211 - 946 pg/mL No Performed Apr 04 (Vitamin informati at: CB 2016 2:19 B12) on in - [facility] PM [Mass/vol source ume] in data [facility] [address] [place] [id number] Automatic Bow Maker Machine Tender: Tian Holt PhD, Phone: [phone] Iron and TIBC Observa Value Referen Units Interpr Notes Date tion ce etation Range COMMENTS TO LAST REMODELER REPAIRER: use blood drawn from ER if possible [...] - [facility] PM in Serum or Plasma [address] [id number] Automatic Bow Maker Machine Tender: Tian Holt PhD, Phone: [phone] Ferritin [Mass/volume] in Serum or Plasma Observa Value Referen Units Interpr Notes Date ti ce etation Range COMMENTS TO LAST REMODELER REPAIRER: use blood drawn from ER if possible Ferritin 8 - 388 ng/mL Normal No Apr 04 [Mass/vol informati 2017 2:19 ume] in on in PM Serum or source Plasma data Reticulocytes [#/volume] in Blood by Automated count Observa Value Referen Units Interpr Notes Date tion ce etation Range COMMENTS TO LAST REMODELER REPAIRER: use blood drawn from ER if possible [...] [facility] AM [Mass/vol source ume] in data [place] [address] [address] [place], [place] [id number] Automatic Bow Maker Machine Tender: Tian Holt PhD, Phone: [phone] Iron and TIBC Observa Value Referen [...] Date tion ce etation Range COMMENTS TO LAST REMODELER REPAIRER: PER [place] PROTOCOL Cholester < 200 mg/dL No No [...] Plasma LTS CALLED TO: TONYA.CLA 02/14/17 1812 Jeffery,Gordon nda> 0.5 IS CONSISTEN T WITH MYOCARDIA [...]
[2017-05-10 12:55] LABS: HEMOGLOBIN 12.6 g/dL (12.2-16.2); LYMPH % 5.8 % (10-50.0)
--- NOTE | 2017-05-10 13:11 | Emergency Room Report ---
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 N Clinical Suspician of Infection? N Mental Status: 2 - Mildly Altered Sepsis Risk:Low Sepsis Risk Have you (or family members/close friends) recently traveled outside the [place]? N If Yes, where/when: Have you had exposure to infectious disease within the past month? N TB? Other? Specify: Family notes they called the patient last night and she seemed confused; recent d/c last week from [facility] do to anemia/ GI bleeding. Has stayed bedridden since that time, usually in a wheelchair. Has very global generalized weakness progressively. She denies chest pain, denies abdominal pain, wears Depends, no fever or vomiting, no report of any focal neurological changes. She is DNR per d /w family at bedside. She has hx CAD and very little cardiac function remaining, per family. ALLERGIES Coded Allergies: No Known Allergies (03/13/17) Home Medications Active Scripts NITROGLYCERIN (Nitrostat) 0.4 MG SL [id number] PRN CHEST PAIN #30 TAB Prov: 12/23/16 Oxazepam 10 MG PO BID #60 CAPSULE Ref 1 Prov: 12/23/16 Carvedilol (Carvedilol 12.5MG) 12.5 MG PO BID #60 TAB Ref 11 Prov: 02/18/17 DIGOXIN (Digox) 0.125 MG PO DAILY #30 TAB Ref 11 Prov: 02/18/17 Ticagrelor (Brilinta) 90 MG PO BID #60 TAB Ref 11 Prov: 02/18/17 Gabapentin (Neurontin 300MG) 300 MG PO QHS #30 CAP Prov: 03/15/17 Pantoprazole Sodium (Pantoprazole 40MG) 40 MG PO BID #60 ECT Ref 2 Prov: 04/09/17 Ferrous Sulfate (Feosol) 325 MG PO DAILY #30 TAB Ref 11 Prov: 04/09/17 Discontinued Scripts Aspirin (Aspirin EC 81MG) 81 MG PO DAILY #30 TABLET Ref 11 Prov: 02/18/17 DC: 05/03/17 1250 Sucralfate (Carafate) 1 GM PO ACHS #120 TAB Ref 2 Prov: 04/09/17 DC: 05/03/17 1250 Reported Medications Cholecalciferol (Vitamin D3) (Vitamin D3) 2,000 UNIT PO DAILY POTASSIUM CHL (Potassium Chloride) 40 MEQ PO BID Gabapentin (Gabapentin 300MG) 300 MG PO DAILY Metoclopramide Hcl (Reglan) 5 MG PO AC ATORVASTATIN CALCIUM (ATORVASTATIN 20MG) 20 MG PO QHS Trazodone Hcl (Trazodone HCl) 150 MG PO QHS Levothyroxine Sodium 0.2 MG PO DAILY Furosemide (Furosemide 40MG) 40 MG PO DAILY History Medical History General CAD? Yes Angina: Yes HI: Yes Hypertension? Yes Hyperlipidemia? Yes CHF? No DVT? No PE? No COPD? No Asthma? No Anemia? No GERD? No Gastric ulcers? No GI Bleed? No Hernia? No Thyroid Problems? No Hypothyroidism? No CVA? Yes Seizures? No Diabetes? No Renal Insuffiency? No End Stage Renal Disease? No UTI? No Stones? No BPH? No GB Disease: No Nephritic Syndrome? No Asplenia? No Hepatitis? No Sickle Cell Disease? No Arthritis? No Migraines? No Cataracts? No Glaucoma? No MRSA? No HIV? No TB? No Anxiety? No Depression? No Cancer? No More? Yes Additional hx: TREMORS, PARKISONS Immunization Hx DT/Tetanus Unknown Flu 2016/2017 Pneumonia Received In Past Surgical Hx Previous Surgery?Y Coronary Artery Bypass TUBAL LIGATION HYSTERECTOMY CARDIAC STENTS Family History Family Hx Diabetes No CAD Yes Hypertension Yes Hyperlipidemia Yes Cancer Yes TB No Social History Smoking Hx Smoker: Never Smoker Tobacco: No Packs/day N/A Alcohol Alcohol: No Review of Systems All Other Systems Reviewed and Negative Cardiovascular denies see HPI Gastrointestinal denies see HPI Psychiatric/Neurological see HPI Physical Exam Vital Signs Vital Signs Date Time Temp Pulse Resp B/P Pulse O2 O2 Flow FiO2 Ox Delivery Rate 05/10 1327 88 16 110/71 95 05/10 1137 97.6 85 18 102/61 97 2 General Appearance normal appearance, WD/WN, no apparent distress Eye Exam - bilateral eye normal exam Neck normal inspection, non-tender, supple, full range of motion Respiratory Status Yes: trachea midline, chest symmetrical, non tender chest. No: respiratory distress, tender on palpation, use of accessory muscles, pain on inspiration, pain on expiration, productive cough, non productive cough. Lung Sounds bilateral: normal breath sounds, lungs clear. 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 Glascow Coma Scale Glascow Coma Scale Response Value EYE response: 4 Spontaneously 4 MOTOR response: 6 OBEYS 6 VERBAL response: 5 Oriented & Converses 5 Total 15 Skin intact, pallor Medical Decision Making LABS/Meds/Orders Pt receiving controlled substance in ED? No Results/Orders Laboratory Tests 05/10/17 1240: Troponin I 0.02 05/10/17 1240: Lactic Acid 1.5 05/10/17 1240: Sodium 135 L, Potassium 3.8, Chloride 103, Carbon Dioxide 18 L, BUN 39 H, Creatinine 1.2 H, Estimated Creat Clear 29 L, Estimated GFR (MDRD) 42 L, Glucose 117 H, Calcium 8.2 L, Total Bilirubin 0.6, AST 8 L, ALT 3 L, Alkaline Phosphatase 102, Total Protein 5.0 L, Albumin 1.7 L, Globulin 3.3 H, Albumin/Globulin Ratio 0.5 L, WBC 16.9 H, RBC 4.44, Hgb 12.6, Hct 37.7, MCV 85.0, RDW 17.5, Plt Count 335, MPV 7.7, Gran % 88.4 H, Gran # 15.0 H, Total Counted 100, Lymphocytes % 5.8 L, Monocytes % 4.6, Eosinophils % 1.0, Basophils % 0.2, Neutrophils 91 H, Band Neutrophils 2, Lymphocytes (Manual) 4 L, Lymphocytes # 1.0, Monocytes (Manual) 3, Monocytes # 0.8, Eosinophils # 0.2, Basophils # 0.0, Platelet Estimate NORMAL, Anisocytosis 1+, [place] Cells 1+, PUBS MCHC 33.5, MCH 28.5 Current Medication Orders Sig/Xu Start time Last Medication Dose Route Stop Time Status Admin Sodium Chloride 10 ML PRN PRN 05/10 1215 AC IV 05/11 1211 Orders Procedure Date/time Status Decision to admit 05/10 1446 Active ELECTROCARDIOGRAM REQUEST 05/[address] HEAD REQ 05/10 1311 Complete TROPONIN I 05/10 1311 Complete DIFFERENTIAL-WBC 05/10 1240 Complete IV SALINE LOCK 05/10 1212 Active CULTURE, BLOOD 05/10 1212 Active URINALYSIS/COMPLETE 05/10 1212 Active LACTIC ACID 05/10 1212 Complete CBC WITH AUTO DIFF 05/10 1212 Complete CHEM 12 PROFILE 05/10 1212 Complete 12 LEAD EKG-STEFANIE (INITIAL) 05/10 UNK Active Departure Departure Time of Disposition 1443 Disposition Still a Patient Clinical Impression Primary Impression: Dehydration Secondary Impressions: Confusion Condition STABLE Referrals Yariel CUMMINGS,[place] (Family) ED Critical Care Critical Care No at 1623
--- NOTE | 2017-05-10 13:11 | Emergency Room Report ---
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 N Clinical Suspician of Infection? N Mental Status: 2 - Mildly Altered Sepsis Risk:Low Sepsis Risk Have you (or family members/close friends) recently traveled outside the [place]? N If Yes, where/when: Have you had exposure to infectious disease within the past month? N TB? Other? Specify: Family notes they called the patient last night and she seemed confused; recent d/c last week from [facility] do to anemia/ GI bleeding. Has stayed bedridden since that time, usually in a wheelchair. Has very global generalized weakness progressively. She denies chest pain, denies abdominal pain, wears Depends, no fever or vomiting, no report of any focal neurological changes. She is DNR per d /w family at bedside. She has hx CAD and very little cardiac function remaining, per family. ALLERGIES Coded Allergies: No Known Allergies (03/13/17) Home Medications Active Scripts NITROGLYCERIN (Nitrostat) 0.4 MG SL [id number] PRN CHEST PAIN #30 TAB Prov: 12/23/16 Oxazepam 10 MG PO BID #60 CAPSULE Ref 1 Prov: 12/23/16 Carvedilol (Carvedilol 12.5MG) 12.5 MG PO BID #60 TAB Ref 11 Prov: 02/18/17 DIGOXIN (Digox) 0.125 MG PO DAILY #30 TAB Ref 11 Prov: 02/18/17 Ticagrelor (Brilinta) 90 MG PO BID #60 TAB Ref 11 Prov: 02/18/17 Gabapentin (Neurontin 300MG) 300 MG PO QHS #30 CAP Prov: 03/15/17 Pantoprazole Sodium (Pantoprazole 40MG) 40 MG PO BID #60 ECT Ref 2 Prov: 04/09/17 Ferrous Sulfate (Feosol) 325 MG PO DAILY #30 TAB Ref 11 Prov: 04/09/17 Discontinued Scripts Aspirin (Aspirin EC 81MG) 81 MG PO DAILY #30 TABLET Ref 11 Prov: 02/18/17 DC: 05/03/17 1250 Sucralfate (Carafate) 1 GM PO ACHS #120 TAB Ref 2 Prov: 04/09/17 DC: 05/03/17 1250 Reported Medications Cholecalciferol (Vitamin D3) (Vitamin D3) 2,000 UNIT PO DAILY POTASSIUM CHL (Potassium Chloride) 40 MEQ PO BID Gabapentin (Gabapentin 300MG) 300 MG PO DAILY Metoclopramide Hcl (Reglan) 5 MG PO AC ATORVASTATIN CALCIUM (ATORVASTATIN 20MG) 20 MG PO QHS Trazodone Hcl (Trazodone HCl) 150 MG PO QHS Levothyroxine Sodium 0.2 MG PO DAILY Furosemide (Furosemide 40MG) 40 MG PO DAILY History Medical History General CAD? Yes Angina: Yes NM: Yes Hypertension? Yes Hyperlipidemia? Yes CHF? No DVT? No PE? No COPD? No Asthma? No Anemia? No GERD? No Gastric ulcers? No GI Bleed? No Hernia? No Thyroid Problems? No Hypothyroidism? No CVA? Yes Seizures? No Diabetes? No Renal Insuffiency? No End Stage Renal Disease? No UTI? No Stones? No BPH? No GB Disease: No Nephritic Syndrome? No Asplenia? No Hepatitis? No Sickle Cell Disease? No Arthritis? No Migraines? No Cataracts? No Glaucoma? No MRSA? No HIV? No TB? No Anxiety? No Depression? No Cancer? No More? Yes Additional hx: TREMORS, PARKISONS Immunization Hx DT/Tetanus Unknown Flu 2016/2017 Pneumonia Received In Past Surgical Hx Previous Surgery?Y Coronary Artery Bypass TUBAL LIGATION HYSTERECTOMY CARDIAC STENTS Family History Family Hx Diabetes No CAD Yes Hypertension Yes Hyperlipidemia Yes Cancer Yes TB No Social History Smoking Hx Smoker: Never Smoker Tobacco: No Packs/day N/A Alcohol Alcohol: No Review of Systems All Other Systems Reviewed and Negative Cardiovascular denies see HPI Gastrointestinal denies see HPI Psychiatric/Neurological see HPI Physical Exam Vital Signs Vital Signs Date Time Temp Pulse Resp B/P Pulse O2 O2 Flow FiO2 Ox Delivery Rate 05/10 1327 88 16 110/71 95 05/10 1137 97.6 85 18 102/61 97 2 General Appearance normal appearance, WD/WN, no apparent distress Eye Exam - bilateral eye normal exam Neck normal inspection, non-tender, supple, full range of motion Respiratory Status Yes: trachea midline, chest symmetrical, non tender chest. No: respiratory distress, tender on palpation, use of accessory muscles, pain on inspiration, pain on expiration, productive cough, non productive cough. Lung Sounds bilateral: normal breath sounds, lungs clear. Cardiovascular normal exam, regular rate/rhythm, no peripheral edema, no gallop, no JVD, no murmur, no rub, normal peripheral pulses Gastrointestinal normal bowel sounds, normal exam, non tender, soft, no organomegaly, no pulsatile mass, no guarding, no rebound Extremities non-tender, normal range of motion, normal capillary refill, no calf tenderness, no pedal edema (old abrasions,dark ecchymosis), neg Juan's BLE Strength 5 Upper Ext (L), 5 Upper Ext (R), 5 Lower Ext (L), 5 Lower Ext (R) Neurologic alert, pattern scratcher II-XII nml as tested, normal exam, no motor/sensory deficits, oriented x 3, somewhat somnolent but has equal video systems engineer, follows commands well, no focal deficits, no tremor, clear speech, very [place], nonfocal exam, NIHSS 0 as checked. Glascow Coma Scale Glascow Coma Scale Response Value EYE response: 4 Spontaneously 4 MOTOR response: 6 OBEYS 6 VERBAL response: 5 Oriented & Converses 5 Total 15 Skin intact, pallor Medical Decision Making LABS/Meds/Orders Pt receiving controlled substance in ED? No Results/Orders Laboratory Tests 05/10/17 1240: Troponin I 0.02 05/10/17 1240: Lactic Acid 1.5 05/10/17 1240: Sodium 135 L, Potassium 3.8, Chloride 103, Carbon Dioxide 18 L, BUN 39 H, Creatinine 1.2 H, Estimated Creat Clear 29 L, Estimated GFR (MDRD) 42 L, Glucose 117 H, Calcium 8.2 L, Total Bilirubin 0.6, AST 8 L, ALT 3 L, Alkaline Phosphatase 102, Total Protein 5.0 L, Albumin 1.7 L, Globulin 3.3 H, Albumin/Globulin Ratio 0.5 L, WBC 16.9 H, RBC 4.44, Hgb 12.6, Hct 37.7, MCV 85.0, RDW 17.5, Plt Count 335, MPV 7.7, Gran % 88.4 H, Gran # 15.0 H, Total Counted 100, Lymphocytes % 5.8 L, Monocytes % 4.6, Eosinophils % 1.0, Basophils % 0.2, Neutrophils 91 H, Band Neutrophils 2, Lymphocytes (Manual) 4 L, Lymphocytes # 1.0, Monocytes (Manual) 3, Monocytes # 0.8, Eosinophils # 0.2, Basophils # 0.0, Platelet Estimate NORMAL, Anisocytosis 1+, [place] Cells 1+, PUBS MCHC 33.5, MCH 28.5 Current Medication Orders Sig/Xu Start time Last Medication Dose Route Stop Time Status Admin Sodium Chloride 10 ML PRN PRN 05/10 1215 AC IV 05/11 1211 Orders Procedure Date/time Status Decision to admit 05/10 1446 Active ELECTROCARDIOGRAM REQUEST 05/[address] HEAD REQ 05/10 1311 Complete TROPONIN I 05/10 1311 Complete DIFFERENTIAL-WBC 05/10 1240 Complete IV SALINE LOCK 05/10 1212 Active CULTURE, BLOOD 05/10 1212 Active URINALYSIS/COMPLETE 05/10 1212 Active LACTIC ACID 05/10 1212 Complete CBC WITH AUTO DIFF 05/10 1212 Complete CHEM 12 PROFILE 05/10 1212 Complete 12 LEAD EKG-STEFANIE (INITIAL) 05/10 UNK Active Departure Departure Time of Disposition 1443 Disposition Still a Patient Clinical Impression Primary Impression: Dehydration Secondary Impressions: Confusion Condition STABLE Referrals Yariel CUMMINGS,[place] (Family) ED Critical Care Critical Care No at 1623
[2017-05-10 13:27] LABS: NEUTROPHILS 91 % (42-76)
--- NOTE | 2017-05-10 14:16 | RADIOLOGY REPORT PS360 ---
CT HEAD W/O CONTRAST HISTORY: Mental status change, altered level consciousness, confusion MENTAL STATUS CHANGE ORDERING PHYSICIAN: Maggy Abdul MD PATIENT AGE: 87 years COMPARISON: 02/14/2017 TECHNIQUE: Axial images obtained without contrast. Brain and bone windows reviewed. FINDINGS: There is generalized atrophy with hypoattenuation in the periventricular and subcortical region consistent with ischemic gliotic change from microvascular disease. Intracranial arterial calcification is present. No midline shift or mass effect. No intracranial hemorrhage or hydrocephalus. There is partial opacification the right aspect of the sphenoid sinus. No mastoid effusion or sinus air-fluid level. IMPRESSION: 1. No acute intracranial findings 2. Atrophy with chronic ischemic change 3. Chronic right sphenoid sinus disease
--- NOTE | 2017-05-10 14:17 | RADIOLOGY REPORT PS360 ---
CHEST-PORTABLE HISTORY: Confusion, altered mental status, shortness of breath confused ORDERING PHYSICIAN: Maggy Abdul MD PATIENT AGE: 87 years COMPARISON: 04-07-17 FINDINGS: There has been prior median sternotomy. The heart size is unremarkable. There is some increased density in the retrocardiac region on the left consistent with atelectatic change or infiltrate. The remaining lungs are clear. Calcified granuloma is present in the right perihilar region. IMPRESSION: Left lower lobe atelectasis or infiltrate.
--- OUTSIDE RECORDS SUMMARY | 2017-05-10 15:04 | External Medical Summary Rpt | CCD ---
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 complet ed 017 0 ed blood 12:40 eosinop hils/10 0 leukocy t Blood = 15.0 1.8-7.8 complet granulo 017 K/mm3 ed cytes 12:40 automat ed count (numb Blood = 37.7 37.0-47 complet hematoc 017 % .0 ed rit 12:40 (volume fractio n) Blood = 12.6 12.2-16 complet hemoglo 017 g/dL .2 ed bin 12:40 measure ment (mass/v olum Absolut = 1.0 0.7-4.5 complet e 017 K/mm3 ed lymphoc 12:40 yte count Lymphoc = 5.8 % 10-50.0 complet yte 017 ed count, 12:40 blood, automat ed Mean = 28.5 27-31.2 complet corpusc 017 pg ed ular 12:40 hemoglo bin (MCH) determ Automat = 33.5 31.8-35 complet ed 017 g/dl .4 ed erythro 12:40 cyte mean corpusc ular h Automat = 85.0 82.2-97 complet ed 017 fl .8 ed erythro 12:40 cyte mean corpusc ular v Absolut = 0.8 0.1-1.0 complet e 017 K/mm3 ed monocyt 12:40 e count [place] % = 4.6 % 1.7-9.3 complet 017 ed 12:40 Automat = 7.7 7.4-10. complet ed 017 fl 4 ed blood 12:40 platele t mean volume karsten Blood = 335 142-424 complet platele 017 K/mm3 ed t count 12:40 Red = 4.44 4.2-5.4 complet blood 017 M/mm3 ed cell 12:40 count Automat = 17.5 11.5-17 complet ed 017 % .5 ed erythro 12:40 cyte distrib ution width Blood = 16.9 4.8-10. complet leukocy 017 K/MM3 8 ed olya 12:40 count (number /volume ) Differential panel, method unspecified - (05-10-2017 12:40) Blood 1+ 1+ L complet anisocy 017 ed tosis 12:40 detecti on Automat = 2 % 0-8 complet ed 017 ed blood 12:40 band neutrop hil percent a Blood 1+ 1+ L complet mayito 017 ed cells 12:40 detecti on by light micr LYMPH 4 % 10-50 complet 017 ed 12:40 Monocyt = 3 % 2-9 complet e % 017 ed 12:40 Platele NORMAL complet t 017 NORMAL ed estimat 12:40 L e Neutrop = 91 % 42-76 complet hil 017 ed count 12:40 Blood = 100 complet total 017 #CELLS ed cell 12:40 count Comprehensive metabolic panel (05-10-2017 12:40) Serum = 0.5 1.1-1.8 complet or 017 ed plasma 12:40 albumin /globul in mass ra Serum = 1.7 3.4-5.0 complet or 017 gm/dL ed plasma 12:40 albumin measure ment (mas Serum = 102 46-116 complet or 017 U/L ed plasma 12:40 alkalin e phospha tase karsten Serum = 0.6 0.2-1.0 complet or 017 mg/dL ed plasma 12:40 total bilirub in measure m Serum = 39 7-18 complet or 017 mg/dL ed plasma 12:40 urea nitroge n measure men Serum = 8.2 8.5-10. complet or 017 mg/dL 1 ed plasma 12:40 calcium measure ment (mas Serum = 103 98-107 complet or 017 mmoL/L ed plasma 12:40 chlorid e measure ment (mo Carbon = 18 21.0-32 complet dioxide 017 mmoL/L .0 ed 12:40 measure ment Serum = 1.2 0.55-1. complet or 017 mg/dL 02 ed plasma 12:40 creatin ine measure ment ( Estimat = 29 50-200 complet ion of 017 ML/MIN ed creatin 12:40 ine renal clearan ce Estimat = 42 59- complet ed 017 ML/MIN ed glomeru 12:40 lar filtrat ion rate (GF Comment: REFERENCE RANGE: >60 ML/MIN/1.73 SQUARE METERS Comment: If this patient is -[place], then multiply the Comment: result by 1.210. Serum = 3.3 1.3-3.2 complet globuli 017 gm/dL ed n 12:40 measure ment (mass/v olume) Serum = 117 74-106 complet or 017 mg/dL ed plasma 12:40 glucose measure ment (mas Serum = 3.8 3.5-5.1 complet potassi 017 mmoL/L ed um 12:40 measure ment Serum = 135 136-145 complet sodium 017 mmoL/L ed measure 12:40 ment Serum = 8 U/L 15-37 complet or 017 ed plasma 12:40 asparta te aminotr ansfera ALT = 3 U/L 12-78 complet (SGPT) 017 ed ser/eliud 12:40 s Protein = 5.0 6.4-8.2 complet total 017 gm/dL ed ser/eliud 12:40 s Serum or plasma troponin i.cardiac measu (05-10-2017 12:40) Serum = 0.02 0.00-0. complet or 017 ng/mL 06 ed plasma 12:40 troponi n i.cardi ac measu Differential panel, method unspecified - (05-10-2017 12:40) Anisocy 1+ complet tosis 017 ed [Presen 12:40 ce] in Blood [place] 1+ complet cells 017 ed [Presen 12:40 ce] in Blood by Light microsc opy LYMPH 4 % 10% - Low complet 017 50% ed 12:40 Platele NORMAL complet ts 017 ed [Presen 12:40 ce] in Blood by Light microsc opy Whole blood hemoglobin and hematocrit pa (05-03-2017 12:20) Blood = 35.3 37.0-47 complet hematoc 017 % .0 ed rit 12:20 (volume fractio n) Blood = 11.7 12.2-16 complet hemoglo 017 g/dL .2 ed bin 12:20 measure ment (mass/v olum CBC w auto diff (05-03-2017 05:30) Automat = 0.0 0-0.2 complet ed 017 K/MM3 ed blood 05:30 basophi l count (count/ vo Baso % = 0.4 % 0.1-2.0 complet 017 ed 05:30 Automat = 0.4 0.0-0.4 complet ed 017 K/mm3 ed blood 05:30 eosinop hil count Automat = 4.0 % 0.1-12. complet ed 017 0 ed blood 05:30 eosinop hils/10 0 leukocy t Blood = 7.2 1.8-7.8 complet granulo 017 K/mm3 ed cytes 05:30 automat ed count (numb Granulo = 80.5 37.0-80 complet cyte 017 % .0 ed percent 05:30 age Blood = 34.0 37.0-47 complet hematoc 017 % .0 ed rit 05:30 (volume fractio n) Blood = 11.4 12.2-16 complet hemoglo 017 g/dL .2 ed bin 05:30 measure ment (mass/v olum Absolut = 0.7 0.7-4.5 complet e 017 K/mm3 ed lymphoc 05:30 yte count Lymphoc = 7.7 % 10-50.0 complet yte 017 ed count, 05:30 blood, automat ed Mean = 28.6 27-31.2 complet corpusc 017 pg ed ular 05:30 hemoglo bin (MCH) determ Automat = 33.5 31.8-35 complet ed 017 g/dl .4 ed erythro 05:30 cyte mean corpusc ular h Automat = 85.4 82.2-97 complet ed 017 fl .8 ed erythro 05:30 cyte mean corpusc ular v Absolut = 0.7 0.1-1.0 complet e 017 K/mm3 ed monocyt 05:30 e count [place] % = 7.4 % 1.7-9.3 complet 017 ed 05:30 Automat = 8.1 7.4-10. complet ed 017 fl 4 ed blood 05:30 platele t mean volume karsten Blood = 198 142-424 complet platele 017 K/mm3 ed t count 05:30 Red = 3.98 4.2-5.4 complet blood 017 M/mm3 ed cell 05:30 count Automat = 17.7 11.5-17 complet ed 017 % .5 ed erythro 05:30 cyte distrib ution width Blood = 8.9 4.8-10. complet leukocy 017 K/MM3 8 ed olya 05:30 count (number /volume ) Basic metabolic panel (05-03-2017 05:30) Serum 2 = 8.1 8.5-10. complet or 017 mg/dL 1 ed plasma 05:30 calcium measure ment (mas Estimat = 79 59- complet ed 017 ML/MIN ed glomeru 05:30 lar filtrat ion rate (GF Comment: REFERENCE RANGE: >60 ML/MIN/1.73 SQUARE METERS Comment: If this patient is -[place], then multiply the Comment: result by 1.210. Serum = 18 7-18 complet or 017 mg/dL ed plasma 05:30 urea nitroge n measure men Serum = 103 98-107 complet or 017 mmoL/L ed plasma 05:30 chlorid e measure ment (mo Carbon = 21 21.0-32 complet dioxide 017 mmoL/L .0 ed 05:30 measure ment Serum = 0.7 0.55-1. complet or 017 mg/dL 02 ed plasma 05:30 creatin ine measure ment ( Estimat = 57 50-200 complet ion of 017 ML/MIN ed creatin 05:30 ine renal clearan ce Serum = 86 74-106 complet or 017 mg/dL ed plasma 05:30 glucose measure ment (mas Serum = 3.3 3.5-5.1 complet potassi 017 mmoL/L ed um 05:30 measure ment Serum = 133 136-145 complet sodium 017 mmoL/L ed measure 05:30 ment Whole blood hemoglobin and hematocrit pa (05-03-2017 01:35) Comment: COMMENTS TO MINIATURE MODEL MAKER: POST TRANSFUSION Blood = 10.9 12.2-16 complet hemoglo 017 g/dL .2 ed bin 01:35 measure ment (mass/v olum Comment: Blood = 33.0 37.0-47 complet hematoc 017 % .0 ed rit 01:35 (volume fractio n) Leukocyte reduction of packed red blood (05-02-2017 21:51) Leukocy BLOOD complet te 017 UNIT ed reducti 21:51 RELEASE on of BLOOD packed UNIT red RELEASE blood L Comment: BLOOD UNIT # : [id number] RELEASED 05/02/17 Comment: Ingrid Sun Blood product special preparation [Type] (05-02-2017 21:51) Blood BLOOD complet product 017 UNIT ed 21:51 RELEASE special prepara tion [Type] Leukocyte reduction of packed red blood (05-02-2017 16:40) Leukocy BLOOD complet te 017 UNIT ed reducti 16:40 RELEASE on of BLOOD packed UNIT red RELEASE blood L Comment: Comment: BLOOD UNIT # : [id number] RELEASED 05/02/17 Comment: Lilia Burton Comment: Comment: [...] SQUARE METERS Comment: If this patient is -[place], then multiply the Comment: result by 1.210. Serum = 88 74-106 complet or 017 mg/dL ed plasma 06:40 glucose measure ment (arlene Serum = 3.0 3.5-5.1 complet potassi 017 mmoL/L ed um 06:40 measure ment Comment: CRITICAL RESULTS Comment: RESULTS CALLED TO: JUAN ANTONIO 05/02/17 0724 Buddy Comer Comment: Inez Serum = 135 136-145 complet sodium 017 mmoL/L ed measure 06:40 ment CBC w auto diff (05-02-2017 06:40) Blood = 8.3 4.8-10. complet leukocy 017 K/MM3 8 ed olya 06:40 count (number /volume ) Automat = 0.0 0-0.2 complet ed 017 K/MM3 ed blood 06:40 basophi l count (count/ vo Baso % = 0.4 % 0.1-2.0 complet 017 ed 06:40 Automat = 0.4 0.0-0.4 complet ed 017 K/mm3 ed blood 06:40 eosinop hil count Automat = 5.0 % 0.1-12. complet ed 017 0 ed blood 06:40 eosinop hils/10 0 leukocy t Blood = 6.3 1.8-7.8 complet granulo 017 K/mm3 ed cytes 06:40 automat ed count (numb Granulo = 76.2 37.0-80 complet cyte 017 % .0 ed percent 06:40 age Blood = 29.3 37.0-47 complet hematoc 017 % .0 ed rit 06:40 (volume fractio n) Blood = 9.5 12.2-16 complet hemoglo 017 g/dL .2 ed bin 06:40 measure ment (mass/v olum Absolut = 1.0 0.7-4.5 complet e 017 K/mm3 ed lymphoc 06:40 yte count Lymphoc = 11.8 10-50.0 complet yte 017 % ed count, 06:40 blood, automat ed Mean = 27.9 27-31.2 complet corpusc 017 pg ed ular 06:40 hemoglo bin (MCH) determ Automat = 32.5 31.8-35 complet ed 017 g/dl .4 ed erythro 06:40 cyte mean corpusc ular h Automat = 86.0 82.2-97 complet ed 017 fl .8 ed erythro 06:40 cyte mean corpusc ular v Absolut = 0.6 0.1-1.0 complet e 017 K/mm3 ed monocyt 06:40 e count [place] % = 6.6 % 1.7-9.3 complet 017 ed 06:40 Automat = 8.1 7.4-10. complet ed 017 fl 4 ed blood 06:40 platele t mean volume karsten Blood = 247 142-424 complet platele 017 K/mm3 ed t count 06:40 Red = 3.41 4.2-5.4 complet blood 017 M/mm3 ed cell 06:40 count Automat = 18.8 11.5-17 complet ed 017 % .5 ed erythro 06:40 cyte distrib ution width Vitamin B12 ser/plas (05-02-2017 06:00) Vitamin 2 = 414 211-946 complet B12 017 pg/mL ed ser/eliud 06:00 s Comment: Effective May 09, 2017 the reference interval Comment: for Vitamin B12 will be changing to: 232-1245 pg/mL. Comment: Performed at: [facility] Comment: [id number], [place] [id number] Comment: Blending Operator: Tian Holt PhD, Phone: [phone] Iron and TIBC (05-02-2017 06:00) Serum = 167 250-450 complet or 017 ug/dL ed plasma 06:00 iron binding capacit y me Serum = 25 % 15-55 complet or 017 ed plasma 06:00 iron saturat ion measure m Unsatur = 125 118-369 complet ated 017 ug/dL ed iron 06:00 binding capacit y measur Iron, = 42 27-139 complet serum 017 ug/dL ed 06:00 Serum or plasma 25-hydroxyvitamin D lance (05-02-2017 06:00) Serum = 56.2 30.0-10 complet or 017 ng/mL 0.0 ed plasma 06:00 25-hydr oxyvita min D lance Comment: Vitamin D deficiency has been defined by the [place] of Comment: Medicine and an Endocrine Society practice guideline as a Comment: level of serum 25-OH vitamin D less than 20 ng/mL (1,2). Comment: The Endocrine Society went on to further define vitamin D Comment: insufficiency as a level between 21 and 29 ng/mL (2). Comment: 1. IOM ([place] of Medicine). 2010. Dietary reference Comment: intakes for calcium and D. [place]: The Comment: National AcademAdReady Press. Comment: 2. Melchor MF, Gamal NC, Chanda JUÁREZ, et al. Comment: Evaluation, treatment, and prevention of vitamin D Comment: deficiency: an Endocrine Society clinical practice Comment: guideline. JCEM. 2010; 96(6):4308-30. Comment: Performed at: - [facility] Comment: [id number], [place] [id number] Comment: Blending Operator: Tian Holt PhD, Phone: [phone] Whole blood hemoglobin and hematocrit pa (05-01-2017 17:59) Blood = 30.2 37.0-47 complet hematoc 017 % .0 ed rit 17:59 (volume fractio n) Blood = 9.9 12.2-16 complet hemoglo 017 g/dL .2 ed bin 17:59 measure ment (mass/v olum CBC w auto diff (05-01-2017 05:45) Baso % = 0.5 % 0.1-2.0 complet 017 ed 05:45 Automat = 0.2 0.0-0.4 complet ed 017 [...] 017 K/mm3 ed monocyt 05:45 e count [place] % = 6.5 % 1.7-9.3 complet 017 [...] blood 05:45 basophi l count (count/ vo Basic metabolic panel (05-01-2017 05:45) Serum = 34 7-18 complet or 017 mg/dL ed plasma 05:45 urea nitroge n measure men Serum = 8.5 8.5-10. complet or 017 mg/dL 1 ed plasma 05:45 calcium measure ment (mas Serum = 105 98-107 complet or 017 mmoL/L ed plasma 05:45 chlorid e measure ment (mo Carbon = 22 21.0-32 complet dioxide 017 mmoL/L .0 ed 05:45 measure ment Serum = 0.9 0.55-1. complet or 017 mg/dL 02 ed plasma 05:45 creatin ine measure ment ( Estimat 11-26-2 = 44 50-200 complet ion of 017 ML/MIN ed creatin 05:45 ine renal clearan ce Estimat = 59 59- complet ed 017 ML/MIN ed glomeru 05:45 lar filtrat ion rate (GF Comment: REFERENCE RANGE: >60 ML/MIN/1.73 SQUARE METERS Comment: If this patient is -[place], then multiply the Comment: result by 1.210. Serum 05-01-2 = 101 74-106 complet or 017 mg/dL ed plasma 05:45 glucose measure ment (mas Serum 2 = 2.9 3.5-5.1 complet potassi 017 mmoL/L ed um 05:45 measure ment Comment: CRITICAL RESULTS Comment: RESULTS CALLED TO: Sarahy BRADLEY RN 05/01/17 0640 Ozzie Luke Serum = 137 136-145 complet sodium 017 mmoL/L ed measure 05:45 ment Whole blood hemoglobin and hematocrit pa (05-01-2017 01:55) Comment: COMMENTS TO MINIATURE MODEL MAKER: 1HR POST HGB/HCT FOLLOWING BLOOD Comment: COMPLETION Blood = 30.9 37.0-47 complet hematoc 017 % .0 ed rit 01:55 (volume fractio n) Blood = 10.4 12.2-16 complet hemoglo 017 g/dL .2 ed bin 01:55 measure ment (mass/v olum Leukocyte reduction of packed red blood (04-30-2017 22:10) Leukocy BLOOD complet te 017 UNIT ed reducti 22:10 RELEASE on of BLOOD packed UNIT red RELEASE blood L Comment: BLOOD UNIT # : [id number] RELEASED 04/30/17 2210 Comment: Ozzie Luke Comment: [...] Comment: BLOOD UNIT # : [id number] RELEASED 04/30/175 Comment: Ozzie Luke Comment: A POSITIVE Blood product special preparation [Type] (04-30-2017 19:05) Blood BLOOD complet product 017 UNIT ed 19:05 RELEASE special prepara tion [Type] Blood type and crossmatch (04-30-2017 17:05) Comment: Hold? N Comment: Transfuse now? 2 UNITS NOW Materna NEGATIV NEGATIV complet l 017 E E ed antibod 17:05 NEGATIV y E L screen Rh POSITIV complet blood 017 E ed group 17:05 POSITIV typing E L Blood A A L complet ABO 017 ed group 17:05 typing Crossmatch (04-30-2017 17:05) Comment: Hold? N Comment: Transfuse now? 2 UNITS NOW Interpr COMPAT complet etation 017 COMPAT ed of 17:05 L major crossma tch resul Immedia COMPAT complet te spin 017 COMPAT ed 17:05 L crossma tch Blood type & Crossmatch panel in Blood (04-30-2017 17:05) Blood NEGATIV NEGATIV complet group 017 E E ed antibod 17:05 y screen [Presen ce] in Serum or Plasma Rh POSITIV complet [Type] 017 E ed in 17:05 Blood ABO A complet group 017 ed [Type] 17:05 in Blood Blood type & Crossmatch panel in Blood (04-30-2017 17:05) Major COMPAT complet crossma 017 ed tch 17:05 [interp retatio n] Major COMPAT complet crossma 017 ed tch 17:05 [interp retatio n] by Immedia te spin CBC w auto diff (04-30-2017 09:00) Automat [...] 017 K/mm3 ed monocyt 09:00 e count [place] % = 7.7 % 1.7-9.3 complet 017 [...] ) CBC w auto diff (04-28-2017) Automat = 0.4 0.0-0.4 complet ed 017 K/mm3 ed blood eosinop hil count Blood = 5.8 1.8-7.8 complet granulo 017 K/mm3 ed cytes automat ed count (numb Granulo = 71.0 37.0-80 complet cyte 017 % .0 ed percent age Blood = 32.2 37.0-47 complet hematoc 017 % .0 ed rit (volume fractio n) Blood = 10.4 12.2-16 complet hemoglo 017 g/dL .2 ed bin measure ment (mass/v olum Absolut = 1.2 0.7-4.5 complet e 017 K/mm3 ed lymphoc yte count Lymphoc = 14.6 10-50.0 complet yte 017 % ed count, blood, automat ed Mean = 28.8 27-31.2 complet corpusc 017 pg ed ular hemoglo bin (MCH) determ Automat = 32.3 31.8-35 complet ed 017 g/dl .4 ed erythro cyte mean corpusc ular h Automat = 89.1 82.2-97 complet ed 017 fl .8 ed erythro cyte mean corpusc ular v Absolut = 0.8 0.1-1.0 complet e 017 K/mm3 ed monocyt e count [place] % = 9.5 % 1.7-9.3 complet 017 ed Automat = 8.4 7.4-10. complet ed 017 fl 4 ed blood platele t mean volume karsten Blood = 293 142-424 complet platele 017 K/mm3 ed t count Red = 3.61 4.2-5.4 complet blood 017 M/mm3 ed cell count Automat = 17.9 11.5-17 complet ed 017 % .5 ed erythro cyte distrib ution width Blood = 8.2 4.8-10. complet leukocy 017 K/MM3 8 ed olya count (number /volume ) Automat = 0.1 0-0.2 complet ed 017 K/MM3 ed blood basophi l count (count/ vo Baso % = 0.7 % 0.1-2.0 complet 017 ed Automat = 4.3 % 0.1-12. complet ed 017 0 ed blood eosinop hils/10 0 leukocy t DIARRHEA PANEL,PCR (04-10-2017) Stool NOT NOT complet [...] RESULTS CALLED TO: DR. HESTER 04/10/17 2200 Ozzie Luke Cryptos NOT NOT complet poridiu 017 DETECTE [...] us D NOT assay DETECTE D L CBC w auto diff (04-09-2017 06:34) Blood = 30.1 37.0-47 complet hematoc 017 % .0 ed rit 06:34 (volume fractio n) Automat = 0.0 0-0.2 complet ed 017 K/MM3 ed blood 06:34 basophi l count (count/ vo Baso % = 0.3 % 0.1-2.0 complet 017 ed 06:34 Automat = 0.3 0.0-0.4 complet ed 017 K/mm3 ed blood 06:34 eosinop hil count Automat = 2.1 % 0.1-12. complet ed 017 0 ed blood 06:34 eosinop hils/10 0 leukocy t Blood = 10.8 1.8-7.8 complet granulo 017 K/mm3 ed cytes 06:34 automat ed count (numb Granulo = 83.5 37.0-80 complet cyte 017 % .0 ed percent 06:34 age Blood = 9.6 12.2-16 complet hemoglo 017 g/dL .2 ed bin 06:34 measure ment (mass/v olum Absolut = 0.9 0.7-4.5 complet e 017 K/mm3 ed lymphoc 06:34 yte count Lymphoc = 6.7 % 10-50.0 complet yte 017 ed count, 06:34 blood, automat ed Mean = 28.4 27-31.2 complet corpusc 017 pg ed ular 06:34 hemoglo bin (MCH) determ Automat = 31.9 31.8-35 complet ed 017 g/dl .4 ed erythro 06:34 cyte mean corpusc ular h Automat = 89.3 82.2-97 complet ed 017 fl .8 ed erythro 06:34 cyte mean corpusc ular v Absolut = 1.0 0.1-1.0 complet e 017 K/mm3 ed monocyt 06:34 e count [place] % = 7.3 % 1.7-9.3 complet 017 ed 06:34 Automat = 7.4 7.4-10. complet ed 017 fl 4 ed blood 06:34 platele t mean volume karsten Blood = 389 142-424 complet platele 017 K/mm3 ed t count 06:34 Red = 3.38 4.2-5.4 complet blood 017 M/mm3 ed cell 06:34 count Automat = 15.5 11.5-17 complet ed 017 % .5 ed erythro 06:34 cyte distrib ution width Blood = 12.9 4.8-10. complet leukocy 017 K/MM3 8 ed olya 06:34 count (number /volume ) Basic metabolic panel (04-09-2017 06:34) Serum 2 = 12 7-18 complet or 017 mg/dL ed plasma 06:34 urea nitroge n measure men Serum = 107 98-107 complet or 017 mmoL/L ed plasma 06:34 chlorid e measure ment (mo Carbon = 19 21.0-32 complet dioxide 017 mmoL/L .0 ed 06:34 measure ment Serum 2 = 0.9 0.55-1. complet or 017 mg/dL 02 ed plasma 06:34 creatin ine measure ment ( Estimat = 43 50-200 complet ion of 017 ML/MIN ed creatin 06:34 ine renal clearan ce Estimat = 59 59- complet ed 017 ML/MIN ed glomeru 06:34 lar filtrat ion rate (GF Comment: REFERENCE RANGE: >60 ML/MIN/1.73 SQUARE METERS Comment: If this patient is -[place], then multiply the Comment: result by 1.210. Serum = 96 74-106 complet or 017 mg/dL ed plasma 06:34 glucose measure ment (mas Serum = 3.3 3.5-5.1 complet potassi 017 mmoL/L ed um 06:34 measure ment Serum = 138 136-145 complet sodium 017 mmoL/L ed measure 06:34 ment Serum 2 = 8.2 8.5-10. complet or 017 mg/dL 1 ed plasma 06:34 calcium measure ment (mas Digoxin level (04-09-2017 06:34) Digoxin = 1.03 1.15-2. complet level 017 ng/mL 56 ed 06:34 CBC w auto diff (04-08-2017 06:12) Automat = 90.4 82.2-97 complet ed 017 fl .8 ed erythro 06:12 cyte mean corpusc ular v Absolut = 1.6 0.1-1.0 complet e 017 K/mm3 ed monocyt 06:12 e count [place] % = 7.5 % 1.7-9.3 complet 017 [...] Basic metabolic panel (04-08-2017 06:12) Serum = 20 7-18 complet or 017 mg/dL ed plasma 06:12 urea nitroge n measure men Serum = 8.3 8.5-10. complet or 017 mg/dL 1 ed plasma 06:12 calcium measure ment (mas Serum = 107 98-107 complet or 017 mmoL/L ed plasma 06:12 chlorid e measure ment (mo Carbon = 17 21.0-32 complet dioxide 017 mmoL/L .0 ed 06:12 measure ment Serum = 0.8 0.55-1. complet or 017 mg/dL 02 ed plasma 06:12 creatin ine measure ment ( Estimat = 48 50-200 complet ion of 017 ML/MIN ed creatin 06:12 ine renal clearan ce Estimat = 68 59- complet ed 017 ML/MIN ed glomeru 06:12 lar filtrat ion rate (GF Comment: REFERENCE RANGE: >60 ML/MIN/1.73 SQUARE METERS Comment: If this patient is -[place], then multiply the Comment: result by 1.210. Serum = 75 74-106 complet or 017 mg/dL ed plasma 06:12 glucose measure ment (mas Serum = 4.0 3.5-5.1 complet potassi 017 mmoL/L ed um 06:12 measure ment Serum = 136 136-145 complet sodium 017 mmoL/L ed measure 06:12 ment Whole blood hemoglobin and hematocrit pa (04-07-2017 14:12) Blood = 26.7 37.0-47 complet hematoc 017 % .0 ed rit 14:12 (volume fractio n) Blood = 8.7 12.2-16 complet hemoglo 017 g/dL .2 ed bin 14:12 measure ment (mass/v olum Basic metabolic panel (04-07-2017 06:20) Serum = 28 7-18 complet or 017 mg/dL ed plasma 06:20 urea nitroge n measure men Serum = 8.0 8.5-10. complet or 017 mg/dL 1 ed plasma 06:20 calcium measure ment (mas Serum = 107 98-107 complet or 017 mmoL/L ed plasma 06:20 chlorid e measure ment (mo Carbon = 21 21.0-32 complet dioxide 017 mmoL/L .0 ed 06:20 measure ment Serum = 1.1 0.55-1. complet or 017 mg/dL 02 ed plasma 06:20 creatin ine measure ment ( Estimat = 35 50-200 complet ion of 017 ML/MIN ed creatin 06:20 ine renal clearan ce Estimat = 47 59- complet ed 017 ML/MIN ed glomeru 06:20 lar filtrat ion rate (GF Comment: REFERENCE RANGE: >60 ML/MIN/1.73 SQUARE METERS Comment: If this patient is -[place], then multiply the Comment: result by 1.210. Serum = 86 74-106 complet or 017 mg/dL ed plasma 06:20 glucose measure ment (mas Serum = 3.9 3.5-5.1 complet potassi 017 mmoL/L ed um 06:20 measure ment Serum = 135 136-145 complet sodium 017 mmoL/L ed measure 06:20 ment CBC w auto diff (04-07-2017 06:20) Automat = 0.0 0-0.2 complet ed 017 K/MM3 ed blood 06:20 basophi l count (count/ vo Baso % = 0.1 % 0.1-2.0 complet 017 ed 06:20 Automat = 0.1 0.0-0.4 complet ed 017 K/mm3 ed blood 06:20 eosinop hil count Automat = 0.3 % 0.1-12. complet ed 017 0 ed blood 06:20 eosinop hils/10 0 leukocy t Blood = 23.1 1.8-7.8 complet granulo 017 K/mm3 ed cytes 06:20 automat ed count (numb Granulo = 86.2 37.0-80 complet cyte 017 % .0 ed percent 06:20 age Blood = 27.3 37.0-47 complet hematoc 017 % .0 ed rit 06:20 (volume fractio n) Blood = 8.5 12.2-16 complet hemoglo 017 g/dL .2 ed bin 06:20 measure ment (mass/v olum Absolut = 1.4 0.7-4.5 complet e 017 K/mm3 ed lymphoc 06:20 yte count Lymphoc = 5.1 % 10-50.0 complet yte 017 ed count, 06:20 blood, automat ed Automat = 91.0 82.2-97 complet ed 017 fl .8 ed erythro 06:20 cyte mean corpusc ular v Absolut = 2.2 0.1-1.0 complet e 017 K/mm3 ed monocyt 06:20 e count [place] % = 8.1 % 1.7-9.3 complet 017 ed 06:20 Automat = 7.5 7.4-10. complet ed 017 fl 4 ed blood 06:20 platele t mean volume karsten Blood = 314 142-424 complet platele 017 K/mm3 ed t count 06:20 Red = 3.00 4.2-5.4 complet blood 017 M/mm3 ed cell 06:20 count Automat = 15.7 11.5-17 complet ed 017 % .5 ed erythro 06:20 cyte distrib ution width Mean = 28.3 27-31.2 complet corpusc 017 pg ed ular 06:20 hemoglo bin (MCH) determ Automat = 31.1 31.8-35 complet ed 017 g/dl .4 ed erythro 06:20 cyte mean corpusc ular h Blood = 26.7 4.8-10. complet leukocy 017 K/MM3 8 ed olya 06:20 count (number /volume ) Differential panel, method unspecified - (04-07-2017 06:20) Acantho 1+ 1+ L complet cyte 017 ed detecti 06:20 on Blood 2+ 2+ L complet mayito 017 ed cells 06:20 detecti on by light micr Hypochr 1+ 1+ L complet omatic 017 ed red 06:20 blood cell detecti on LYMPH 8 % 10-50 complet 017 ed 06:20 Monocyt = 3 % 2-9 complet e % 017 ed 06:20 Platele NORMAL complet t 017 NORMAL ed estimat 06:20 L e Neutrop = 89 % 42-76 complet hil 017 ed count 06:20 Blood 2+ 2+ L complet schisto 017 ed cytes 06:20 detecti on by light mi Blood = 100 complet total 017 #CELLS ed cell 06:20 count Differential panel, method unspecified - (04-07-2017 06:20) [...] and hematocrit pa (04-06-2017 13:45) Blood = 28.5 37.0-47 complet hematoc 017 % .0 ed rit 13:45 (volume fractio n) Blood = 9.3 12.2-16 complet hemoglo 017 g/dL .2 ed bin 13:45 measure ment (mass/v olum Leukocyte reduction of packed red blood (04-06-2017 10:06) Leukocy 11-01-2 BLOOD complet te 017 UNIT ed reducti 10:06 RELEASE on of BLOOD packed UNIT red RELEASE blood L Comment: BLOOD UNIT # : [id number] RELEASED 04/06/17 Comment: Buddy Comer Comment: Comment: A POSITIVE Blood product special preparation [Type] (04-06-2017 10:06) Blood BLOOD complet product 017 UNIT ed 10:06 RELEASE special prepara tion [Type] CBC w auto diff (04-06-2017 07:11) Automat = 0.0 0-0.2 complet ed 017 K/MM3 ed blood 07:11 basophi l count (count/ vo Baso % = 0.2 % 0.1-2.0 complet 017 ed 07:11 Automat = 0.0 0.0-0.4 complet ed 017 K/mm3 ed blood 07:11 eosinop hil count Automat = 0.1 % 0.1-12. complet ed 017 0 ed blood 07:11 eosinop hils/10 0 leukocy t Blood = 22.5 1.8-7.8 complet granulo 017 K/mm3 ed cytes 07:11 automat ed count (numb Granulo = 86.4 37.0-80 complet cyte 017 % .0 ed percent 07:11 age Blood = 25.2 37.0-47 complet hematoc 017 % .0 ed rit 07:11 (volume fractio n) Blood = 7.9 12.2-16 complet hemoglo 017 g/dL .2 ed bin 07:11 measure ment (mass/v olum Comment: CRITICAL RESULTS Comment: RESULTS CALLED TO: LITA Regan 04/06/17805 Buddy Comer Comment: Inez Absolut = 1.7 0.7-4.5 complet e 017 K/mm3 ed lymphoc 07:11 yte count Lymphoc = 6.4 % 10-50.0 complet yte 017 ed count, 07:11 blood, automat ed Mean 11-01-2 = 28.8 27-31.2 complet corpusc 017 pg ed ular 07:11 hemoglo bin (MCH) determ Automat = 31.2 31.8-35 complet ed 017 g/dl .4 ed erythro 07:11 cyte mean corpusc ular h Automat = 92.4 82.2-97 complet ed 017 fl .8 ed erythro 07:11 cyte mean corpusc ular v Absolut = 1.8 0.1-1.0 complet e 017 K/mm3 ed monocyt 07:11 e count [place] % = 6.9 % 1.7-9.3 complet 017 ed 07:11 Automat = 7.2 7.4-10. complet ed 017 fl 4 ed blood 07:11 platele t mean volume karsten Blood = 336 142-424 complet platele 017 K/mm3 ed t count 07:11 Red = 2.73 4.2-5.4 complet blood 017 M/mm3 ed cell 07:11 count Automat = 15.3 11.5-17 complet ed 017 % .5 ed erythro 07:11 cyte distrib ution width Blood = 26.0 4.8-10. complet leukocy 017 K/MM3 8 ed olya 07:11 count (number /volume ) Fecal occult blood test (04-05-2017 13:55) Comment: [...] 08:07) Comment: SAMPLES DRAWN LATE DUE TO HEALTHCARE ADMINISTRATION INTERNSHIP BREAK DOWNS Serum = 8.7 8.5-10. complet or 017 mg/dL 1 ed plasma 08:07 calcium measure ment (mas Serum = 56 7-18 complet or 017 mg/dL ed plasma 08:07 urea nitroge n measure men Serum 04-05-2 = 113 98-107 complet or 017 mmoL/L ed plasma 08:07 chlorid e measure ment (mo Carbon 04-05-2 = 24 21.0-32 complet dioxide 017 mmoL/L .0 ed 08:07 measure ment Serum 04-05-2 = 1.6 0.55-1. complet or 017 mg/dL 02 ed plasma 08:07 creatin ine measure ment ( Estimat 2 = 24 50-200 complet ion of 017 ML/MIN ed creatin 08:07 ine renal clearan ce Estimat = 30 59- complet ed 017 ML/MIN ed glomeru 08:07 lar filtrat ion rate (GF Comment: REFERENCE RANGE: >60 ML/MIN/1.73 SQUARE METERS Comment: If this patient is -[place], then multiply the Comment: result by 1.210. Serum = 95 74-106 complet or 017 mg/dL ed plasma 08:07 glucose measure ment (mas Serum = 4.4 3.5-5.1 complet potassi 017 mmoL/L ed um 08:07 measure ment Serum 04-05-2 = 145 136-145 complet sodium 017 mmoL/L ed measure 08:07 ment CBC w auto diff (04-05-2017 08:00) Comment: SAMPLES DRAWN LATE DUE TO HEALTHCARE ADMINISTRATION INTERNSHIP BREAKDOWNS Baso % = 0.3 % 0.1-2.0 complet 017 ed 08:00 Blood = 14.7 complet leukocy 017 K/mm3 ed olya 08:00 count correct ed for nuc Automat = 0.1 0.0-0.4 complet ed 017 K/mm3 ed blood 08:00 eosinop hil count Automat = 0.3 % 0.1-12. complet ed 017 0 ed blood 08:00 eosinop hils/10 0 leukocy t Blood = 12.6 1.8-7.8 complet granulo 017 K/mm3 ed cytes 08:00 automat ed count (numb Granulo = 82.6 37.0-80 complet cyte 017 % .0 ed percent 08:00 age Blood = 27.8 37.0-47 complet hematoc 017 % .0 ed rit 08:00 (volume fractio n) Blood = 8.9 12.2-16 complet hemoglo 017 g/dL .2 ed bin 08:00 measure ment (mass/v olum Absolut = 1.7 0.7-4.5 complet e 017 K/mm3 ed lymphoc 08:00 yte count Lymphoc = 10.9 10-50.0 complet yte 017 % ed count, 08:00 blood, automat ed Mean = 29.2 27-31.2 complet corpusc 017 pg ed ular 08:00 hemoglo bin (MCH) determ Automat = 32.2 31.8-35 complet ed 017 g/dl .4 ed erythro 08:00 cyte mean corpusc ular h Automat = 90.9 82.2-97 complet ed 017 fl .8 ed erythro 08:00 cyte mean corpusc ular v Absolut = 0.9 0.1-1.0 complet e 017 K/mm3 ed monocyt 08:00 e count [place] % = 5.9 % 1.7-9.3 complet 017 ed 08:00 Automat = 7.4 7.4-10. complet ed 017 fl 4 ed blood 08:00 platele t mean volume karsten Automat = 0.0 0-0.2 complet ed 017 K/MM3 ed blood 08:00 basophi l count (count/ vo Blood = 389 142-424 complet platele 017 K/mm3 ed t count 08:00 Red = 3.06 4.2-5.4 complet blood 017 M/mm3 ed cell 08:00 count Automat = 14.9 11.5-17 complet ed 017 % .5 ed erythro 08:00 cyte distrib ution width Blood = 15.3 4.8-10. complet leukocy 017 K/MM3 8 ed olya 08:00 count (number /volume ) Differential panel, method unspecified - (04-05-2017 08:00) Comment: SAMPLES DRAWN LATE DUE TO HEALTHCARE ADMINISTRATION INTERNSHIP BREAKDOWNS Acantho 04-05-2 1+ 1+ L complet cyte 017 ed detecti 08:00 on Hypochr 04-05-2 1+ 1+ L complet omatic 017 ed red 08:00 blood cell detecti on LYMPH 13 % 10-50 complet 017 ed 08:00 Monocyt = 5 % 2-9 complet e % 017 ed 08:00 Blood 04-05- = 4 % 0-1 complet nucleat 017 ed ed 08:00 erythro cytes count (numb Ovalocy 04-05-2 1+ 1+ L complet te 017 ed detecti 08:00 on Platele NORMAL complet t 017 NORMAL ed estimat 08:00 L e Neutrop = 82 % 42-76 complet hil 017 ed count 08:00 Blood = 100 complet total 017 #CELLS ed cell 08:00 count Differential panel, method unspecified - (04-05-2017 08:00) Acantho 04-05-2 1+ complet cytes 017 ed [Presen 08:00 ce] in Blood by Light microsc opy Hypochr 04-05-2 1+ complet omia 017 ed [Presen 08:00 [...] Comment: BLOOD UNIT # : [id number] RELEASED 04/04/17 Comment: Ingrid Snu Blood product special preparation [Type] (04-04-2017 22:15) Blood BLOOD complet product 017 UNIT ed 22:15 RELEASE special prepara tion [Type] Leukocyte reduction of packed red blood (04-04-2017 17:42) Leukocy BLOOD complet te 017 UNIT ed reducti 17:42 RELEASE on of BLOOD packed UNIT red RELEASE blood L Comment: BLOOD UNIT # : [id number] RELEASED A POS Comment: 04/04/17 Comment: Ragini Gil Blood product special preparation [Type] (04-04-2017 17:42) Blood BLOOD complet product 017 UNIT ed 17:42 RELEASE special prepara tion [Type] Blood type and crossmatch (04-04-2017 15:51) Blood A A L complet ABO 017 ed group 15:51 typing Comment: TIME 1625 Comment: Materna NEGATIV NEGATIV complet l 017 E E ed antibod 15:51 NEGATIV y E L screen Rh POSITIV complet blood 017 E ed group 15:51 POSITIV typing E L Crossmatch (04-04-2017 15:51) Comment: Hold? N Comment: Transfuse now? 1 UNIT NOW Interpr COMPAT complet etation 017 COMPAT ed of 15:51 L major crossma tch resul Immedia COMPAT complet te spin 017 COMPAT ed 15:51 L crossma tch Blood type & Crossmatch panel in Blood [...] [interp retatio n] by Immedia te spin Lipase measurement (04-04-2017 14:19) Lipase = 220 73-393 complet measure 017 U/L ed ment 14:19 Cardiac enzymes (04-04-2017 14:19) Serum = 10.6 0-4.0 complet or 017 U/L ed plasma 14:19 creatin e kinase MB (CK-M Serum = 1.8 0.0-3.6 complet or 017 ng/mL ed plasma 14:19 creatin e kinase MB measu Serum = 17 26-192 complet or 017 U/L ed plasma 14:19 creatin e kinase measure m Serum 04-04-2 = 0.04 0.00-0. complet or 017 ng/mL 06 ed plasma 14:19 troponi n i.cardi ac measu Comprehensive metabolic panel (04-04-2017 14:19) Serum 2 = 0.7 1.1-1.8 complet or 017 ed plasma 14:19 albumin /globul in mass ra Serum = 2.4 3.4-5.0 complet or 017 gm/dL ed plasma 14:19 albumin measure ment (mas Serum = 90 46-116 complet or 017 U/L ed plasma 14:19 alkalin e phospha tase karsten Serum = 0.3 0.2-1.0 complet or 017 mg/dL ed plasma 14:19 total bilirub in measure m Serum = 66 7-18 complet or 017 mg/dL ed plasma 14:19 urea nitroge n measure men Serum = 8.8 8.5-10. complet or 017 mg/dL 1 ed plasma 14:19 calcium measure ment (mas Serum = 106 98-107 complet or 017 mmoL/L ed plasma 14:19 chlorid e measure ment (mo Carbon = 24 21.0-32 complet dioxide 017 mmoL/L .0 ed 14:19 measure ment Serum = 1.6 0.55-1. complet or 017 mg/dL 02 ed plasma 14:19 creatin ine measure ment ( Estimat = 32 50-200 complet ion of 017 ML/MIN ed creatin 14:19 ine renal clearan ce Estimat = 30 59- complet ed 017 ML/MIN ed glomeru 14:19 lar filtrat ion rate (GF Comment: REFERENCE RANGE: >60 ML/MIN/1.73 SQUARE METERS Comment: If this patient is -[place]une[place], then multiply the Comment: result by 1.210. Serum = 3.6 1.3-3.2 complet globuli 017 gm/dL ed n 14:19 measure ment (mass/v olume) Serum = 137 74-106 complet or 017 mg/dL ed plasma 14:19 glucose measure ment (mas Serum = 3.8 3.5-5.1 complet potassi 017 mmoL/L ed um 14:19 measure ment Serum = 140 136-145 complet sodium 017 mmoL/L ed measure 14:19 ment Serum = 10 15-37 complet or 017 U/L ed plasma 14:19 asparta te aminotr ansfera ALT = 7 U/L 12-78 complet (SGPT) 017 ed ser/eliud 14:19 s Protein = 6.0 6.4-8.2 complet total 017 [...] Comment: CRITICAL RESULTS Comment: RESULTS CALLED TO: EAL 04/04/17 1508 Cracraft,Lilia Blood = 6.2 12.2-16 complet hemoglo 017 g/dL .2 ed bin 14:19 measure ment (mass/v olum Comment: CRITICAL RESULTS Comment: RESULTS CALLED TO: EAL 04/04/17 1507 Lilia Burton Absolut = 1.3 0.7-4.5 complet e 017 K/mm3 ed lymphoc 14:19 yte count Lymphoc = 9.6 % 10-50.0 complet yte 017 ed count, 14:19 blood, automat ed Mean = 27.2 27-31.2 complet corpusc 017 pg ed ular 14:19 hemoglo bin (MCH) determ Automat = 30.8 31.8-35 complet ed 017 g/dl .4 ed erythro 14:19 cyte mean corpusc ular h Automat = 88.5 82.2-97 complet ed 017 fl .8 ed erythro 14:19 cyte mean corpusc ular v Absolut = 0.8 0.1-1.0 complet e 017 K/mm3 ed monocyt 14:19 e count [place] % = 5.4 % 1.7-9.3 complet 017 ed 14:19 Automat = 7.3 7.4-10. complet ed 017 fl [...] olya 14:19 count (number /volume ) Automat = 0.0 0-0.2 complet ed 017 K/MM3 ed blood 14:19 basophi l count (count/ vo Automated blood reticulocytes count (num (04-04-2017 14:19) Comment: COMMENTS TO MINIATURE MODEL MAKER: use blood drawn from ER if Comment: possible Automat 10-30-2 = 4.9 % 0.9-3.2 complet ed 017 ed blood 14:19 reticul ocytes count (num Serum or plasma ferritin measurement (ma (04-04-2017 14:19) Comment: COMMENTS TO MINIATURE MODEL MAKER: use blood drawn from ER if Comment: possible Serum 10-30-2 = 39 8-388 complet or 017 ng/mL ed plasma 14:19 ferriti n measure ment (ma Vitamin B12 ser/plas (04-04-2017 14:19) Comment: COMMENTS TO MINIATURE MODEL MAKER: use blood drawn from ER if Comment: possible Vitamin 10-30-2 = 519 211-946 complet B12 017 pg/mL ed ser/eliud 14:19 s Comment: Performed at: [facility] Comment: [id number], [place] [id number] Comment: Blending Operator: Tian Holt PhD, Phone: [phone] Iron and TIBC (04-04-2017 14:19) Comment: COMMENTS TO MINIATURE MODEL MAKER: use blood drawn from ER if Comment: possible Serum 10-30-2 = 254 250-450 complet or 017 ug/dL ed plasma 14:19 iron binding capacit y me Unsatur -30-2 = 237 118-369 complet ated 017 ug/dL ed iron 14:19 binding capacit y measur Iron, 10-30-2 = 17 27-139 complet serum 017 ug/dL ed 14:19 Serum 10-30-2 = 7 % 15-55 complet or 017 ed plasma 14:19 iron saturat ion measure m Comment: Performed at: [facility] Comment: [id number], [place] [id number] Comment: Blending Operator: Tian Holt PhD, Phone: [phone] Whole blood INR measurement (04-04-2017 14:14) Comment: IS PATIENT ON ANTICOAGULANTS? N Whole 10-30-2 = 1.06 0.9-1.1 complet blood 017 ed [...] (04-04-2017 14:05) Influen NOT NOT complet za A ag 017 DETECTE DETECTD ed QL 14:05 D NOT DETECTE D L Influen NOT NOT complet za 017 DETECTE DETECTD ed virus B 14:05 D NOT DETECTE antigen D L detecti on Influenza virus A+B Ag [Presence] in Unspecified specimen (04-04-2017 14:05) Influen NOT NOT complet za 017 DETECTE DETECTD ed virus A 14:05 D Ag [Presen ce] in Unspeci fied specime n Influen NOT NOT complet za 017 DETECTE DETECTD ed virus B 14:05 D Ag [Presen ce] in Unspeci fied specime n CBC w auto diff (03-14-2017 06:54) Automat = 0.0 0-0.2 complet ed 017 K/MM3 ed blood 06:54 basophi l count (count/ vo Automat = 0.4 0.0-0.4 complet ed 017 K/mm3 ed blood 06:54 eosinop hil count Automat = 6.6 % 0.1-12. complet ed 017 0 ed blood 06:54 eosinop hils/10 0 leukocy t Blood = 4.2 1.8-7.8 complet granulo 017 K/mm3 ed cytes 06:54 automat ed count (numb Granulo = 66.2 37.0-80 complet cyte 017 % .0 ed percent 06:54 age Blood = 28.1 37.0-47 complet hematoc 017 % .0 ed rit 06:54 (volume fractio n) Blood = 8.6 12.2-16 complet hemoglo 017 g/dL .2 ed bin 06:54 measure ment (mass/v olum Absolut = 1.1 0.7-4.5 complet e 017 K/mm3 ed lymphoc 06:54 yte count Lymphoc = 17.5 10-50.0 complet yte 017 % ed count, 06:54 blood, automat ed Mean = 28.3 27-31.2 complet corpusc 017 pg ed ular 06:54 hemoglo bin (MCH) determ Automat = 30.6 31.8-35 complet ed 017 g/dl .4 ed erythro 06:54 cyte mean corpusc ular h Automat = 92.4 82.2-97 complet ed 017 fl .8 ed erythro 06:54 cyte mean corpusc ular v Absolut = 0.6 0.1-1.0 complet e 017 K/mm3 ed monocyt 06:54 e count [place] % = 9.2 % 1.7-9.3 complet 017 ed 06:54 Automat = 8.5 7.4-10. complet ed 017 fl 4 ed blood 06:54 platele t mean volume karsten Blood = 223 142-424 complet platele 017 K/mm3 ed t count 06:54 Automat = 14.4 11.5-17 complet ed 017 % .5 ed erythro 06:54 cyte distrib ution width Blood = 6.3 4.8-10. complet leukocy 017 K/MM3 8 ed olya 06:54 count (number /volume ) Baso % = 0.6 % 0.1-2.0 complet 017 ed 06:54 Red = 3.04 4.2-5.4 complet blood 017 M/mm3 ed cell 06:54 count Automated blood reticulocytes count (num (03-14-2017 06:54) Automat = 3.0 % 0.9-3.2 complet ed 017 ed blood 06:54 reticul ocytes count (num Basic metabolic panel (03-14-2017 06:54) Serum = 30 7-18 complet or 017 mg/dL ed plasma 06:54 urea nitroge n measure men Serum = 8.7 8.5-10. complet or 017 mg/dL 1 ed plasma 06:54 calcium measure ment (mas Serum = 107 98-107 complet or 017 mmoL/L ed plasma 06:54 chlorid e measure ment (mo Carbon = 28 21.0-32 complet dioxide 017 mmoL/L .0 ed 06:54 measure ment Serum = 1.4 0.55-1. complet or 017 mg/dL 02 ed plasma 06:54 creatin ine measure ment ( Estimat = 31 50-200 complet ion of 017 ML/MIN ed creatin 06:54 ine renal clearan ce Estimat = 36 59- complet ed 017 ML/MIN ed glomeru 06:54 lar filtrat ion rate (GF Comment: REFERENCE RANGE: >60 ML/MIN/1.73 SQUARE METERS Comment: If this patient is -[place]une[place], then multiply the Comment: result by 1.210. Serum = 91 74-106 complet or 017 mg/dL ed plasma 06:54 glucose measure ment (mas Serum = 5.0 3.5-5.1 complet potassi 017 mmoL/L ed um 06:54 measure ment Serum = 141 136-145 complet sodium 017 mmoL/L ed measure 06:54 ment Serum or plasma ferritin measurement (ma (03-14-2017 06:54) Serum = 39 8-388 complet or 017 ng/mL ed plasma 06:54 ferriti n measure ment (ak Vitamin B12 ser/plas (03-14-2017 06:54) Vitamin = 707 211-946 complet B12 017 pg/mL ed ser/eliud 06:54 s Comment: Performed at: [facility] Comment: [id number], [place] [id number] Comment: Blending Operator: Tian Holt PhD, Phone: [phone] Iron and TIBC (03-14-2017 06:54) Serum = 278 250-450 complet or 017 ug/dL ed plasma 06:54 iron binding capacit y me Unsatur = 247 118-369 complet ated 017 ug/dL ed iron 06:54 binding capacit y measur Iron, = 31 27-139 complet serum 017 ug/dL ed 06:54 Serum = 11 % 15-55 complet or 017 ed plasma 06:54 iron saturat ion measure m Serum or plasma folate measurement (mass (03-14-2017 06:54) Serum = 4.0 >3.0 complet or 017 ng/mL ed plasma 06:54 folate measure ment (mass Comment: Comment: A serum folate concentration of less than 3.1 ng/mL is Comment: considered to represent clinical deficiency. CBC w auto diff (03-13-2017 12:34) Automat [...] 017 K/mm3 ed monocyt 12:34 e count [place] % = 8.3 % 1.7-9.3 complet 017 [...] SQUARE METERS Comment: If this patient is -[place]une[place], then multiply the Comment: result by 1.210. [...]
--- OUTSIDE RECORDS SUMMARY | 2017-05-10 15:04 | External Medical Summary Rpt | CCD ---
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 [...] 017 ed [Presen 12:40 ce] in Blood [place] 1+ complet cells 017 ed [Presen 12:40 [...] 017 K/mm3 ed monocyt 05:30 e count Worth % = 7.4 % 1.7-9.3 complet 017 [...] SQUARE METERS Comment: If this patient is -Scottish, then multiply the Comment: result by 1.210. [...] hematocrit pa (05-03-2017 01:35) Comment: COMMENTS TO CHIP LOFT WORKER: POST TRANSFUSION Blood = 10.9 12.2-16 complet [...] Comment: BLOOD UNIT # : [id number] RELEASED 05/02/17 Comment: Ingrid Sun Blood product special preparation [Type] (05-02-2017 21:51) Blood BLOOD complet product 017 UNIT ed 21:51 RELEASE special prepara tion [Type] Leukocyte reduction of packed red blood (05-02-2017 16:40) Leukocy BLOOD complet te 017 UNIT ed reducti 16:40 RELEASE on of BLOOD packed UNIT red RELEASE blood L Comment: Comment: BLOOD UNIT # : [id number] RELEASED 05/02/17 Comment: Lilia Burton Comment: Comment: [...] SQUARE METERS Comment: If this patient is -Scottish, then multiply the Comment: result by 1.210. [...] 017 K/mm3 ed monocyt 06:40 e count Worth % = 6.6 % 1.7-9.3 complet 017 [...] changing to: 232-1245 pg/mL. Comment: Performed at: [facility] Comment: [address], [place] [id number] Comment: Linen Tech: Tian Holt PhD, Phone: [phone] Iron and TIBC (05-02-2017 06:00) Serum = [...] D deficiency has been defined by the [place] of Comment: Medicine and an Endocrine Society practice guideline as a Comment: level of serum 25-OH vitamin D less than 20 ng/mL (1,2). Comment: The Endocrine Society went on to further define vitamin D Comment: insufficiency as a level between 21 and 29 ng/mL (2). Comment: 1. IOM ([place] of Medicine). 2010. Dietary reference Comment: intakes for calcium and D. [place]: The Comment: National [employer]. Comment: 2. Melchor MF, Gamal NC, Chanda JUÁREZ, et al. Comment: Evaluation, treatment, and prevention of vitamin D Comment: deficiency: an Endocrine Society clinical practice Comment: guideline. JCEM. 2010; 96(8):4120-30. Comment: Performed at: - [facility] Comment: [address], [place] [id number] Comment: Linen Tech: Tian Holt PhD, Phone: [phone] Whole blood hemoglobin and hematocrit pa (05-01-2017 [...] 017 K/mm3 ed monocyt 05:45 e count Worth % = 6.5 % 1.7-9.3 complet 017 [...] SQUARE METERS Comment: If this patient is -Scottish, then multiply the Comment: result by 1.210. [...] hematocrit pa (05-01-2017 01:55) Comment: COMMENTS TO CHIP LOFT WORKER: 1HR POST HGB/HCT FOLLOWING BLOOD Comment: COMPLETION [...] Comment: BLOOD UNIT # : [id number] RELEASED 04/30/17 2210 Comment: Ozzie Luke Comment: [...] Comment: BLOOD UNIT # : [id number] RELEASED 04/30/175 Comment: Ozzie Luke Comment: A [...] 017 K/mm3 ed monocyt 09:00 e count Worth % = 7.7 % 1.7-9.3 complet 017 [...] e 017 K/mm3 ed monocyt e count Worth % = 9.5 % 1.7-9.3 complet 017 [...] 017 K/mm3 ed monocyt 06:34 e count Worth % = 7.3 % 1.7-9.3 complet 017 [...] SQUARE METERS Comment: If this patient is -Scottish, then multiply the Comment: result by 1.210. [...] 017 K/mm3 ed monocyt 06:12 e count Worth % = 7.5 % 1.7-9.3 complet 017 [...] SQUARE METERS Comment: If this patient is -Scottish, then multiply the Comment: result by 1.210. [...] SQUARE METERS Comment: If this patient is -Scottish, then multiply the Comment: result by 1.210. [...] 017 K/mm3 ed monocyt 06:20 e count Worth % = 8.1 % 1.7-9.3 complet 017 [...] Comment: BLOOD UNIT # : [id number] RELEASED 04/06/17 Comment: Buddy Comer Comment: Comment: [...] 017 K/mm3 ed monocyt 07:11 e count Worth % = 6.9 % 1.7-9.3 complet 017 [...] 08:07) Comment: SAMPLES DRAWN LATE DUE TO CIVIL CLERK BREAK DOWNS Serum = 8.7 8.5-10. complet [...] SQUARE METERS Comment: If this patient is -Scottish, then multiply the Comment: result by 1.210. Serum = 95 74-106 complet or 017 mg/dL ed plasma 08:07 glucose measure ment (mas Serum = 4.4 3.5-5.1 complet potassi 017 mmoL/L ed um 08:07 measure ment Serum 04-05-2 = 145 136-145 complet sodium 017 mmoL/L ed measure 08:07 ment CBC w auto diff (04-05-2017 08:00) Comment: SAMPLES DRAWN LATE DUE TO CIVIL CLERK BREAKDOWNS Baso % = 0.3 % 0.1-2.0 [...] 017 K/mm3 ed monocyt 08:00 e count Worth % = 5.9 % 1.7-9.3 complet 017 [...] 08:00) Comment: SAMPLES DRAWN LATE DUE TO CIVIL CLERK BREAKDOWNS Acantho 04-05-2 1+ 1+ L complet [...] Comment: BLOOD UNIT # : [id number] RELEASED 04/04/17 Comment: Ingrid Sun Blood product special preparation [Type] (04-04-2017 22:15) Blood BLOOD complet product 017 UNIT ed 22:15 RELEASE special prepara tion [Type] Leukocyte reduction of packed red blood (04-04-2017 17:42) Leukocy BLOOD complet te 017 UNIT ed reducti 17:42 RELEASE on of BLOOD packed UNIT red RELEASE blood L Comment: BLOOD UNIT # : [id number] RELEASED A POS Comment: 04/04/17 Comment: Ragini [...] SQUARE METERS Comment: If this patient is -Scottish, then multiply the Comment: result by 1.210. [...] 017 K/mm3 ed monocyt 14:19 e count Worth % = 5.4 % 1.7-9.3 complet 017 [...] count (num (04-04-2017 14:19) Comment: COMMENTS TO CHIP LOFT WORKER: use blood drawn from ER if Comment: possible Automat 10-30-2 = 4.9 % 0.9-3.2 complet ed 017 ed blood 14:19 reticul ocytes count (num Serum or plasma ferritin measurement (ma (04-04-2017 14:19) Comment: COMMENTS TO CHIP LOFT WORKER: use blood drawn from ER if Comment: possible Serum 10-30-2 = 39 8-388 complet or 017 ng/mL ed plasma 14:19 ferriti n measure ment (ma Vitamin B12 ser/plas (04-04-2017 14:19) Comment: COMMENTS TO CHIP LOFT WORKER: use blood drawn from ER if Comment: possible Vitamin 10-30-2 = 519 211-946 complet B12 017 pg/mL ed ser/eliud 14:19 s Comment: Performed at: [facility] Comment: [id number], [place] [id number] Comment: Linen Tech: Tian Holt PhD, Phone: [phone] Iron and TIBC (04-04-2017 14:19) Comment: COMMENTS TO CHIP LOFT WORKER: use blood drawn from ER if Comment: [...] saturat ion measure m Comment: Performed at: [facility] Comment: [id number], [place] [id number] Comment: Linen Tech: Tian Holt PhD, Phone: [phone] Whole blood INR measurement (04-04-2017 14:14) Comment: [...] 017 K/mm3 ed monocyt 06:54 e count Worth % = 9.2 % 1.7-9.3 complet 017 [...] SQUARE METERS Comment: If this patient is -Scottish, then multiply the Comment: result by 1.210. [...] ed plasma 06:54 ferriti n measure ment (ca Vitamin B12 ser/plas (03-14-2017 06:54) Vitamin = 707 [id number] complet B12 017 pg/mL ed ser/eliud 06:54 s Comment: Performed at: [facility] Comment: [id number], [place] [id number] Comment: Linen Tech: Tian Holt PhD, Phone: [phone] Iron and TIBC (03-14-2017 06:54) Serum = [...] 017 K/mm3 ed monocyt 12:34 e count Worth % = 8.3 % 1.7-9.3 complet 017 [...] SQUARE METERS Comment: If this patient is -[place], then multiply the Comment: result by 1.210. [...]
--- OUTSIDE RECORDS SUMMARY | 2017-05-10 15:06 | External Medical Summary Rpt | CCD ---
Demographics Preferred Language Czech Marital Status Unknown Hoahaoism Affiliation Unknown Race Unknown Ethnic Group Unknown Author Author , [place] Address Unknown Phone Immunization Unable to retrieve immunization data due to connection failure with Immunization Registry. Please try again later.
--- OUTSIDE RECORDS SUMMARY | 2017-05-10 15:06 | External Medical Summary Rpt | CCD ---
Demographics Preferred Language Arabic Marital Status Unknown Yazidi Affiliation Unknown Race Unknown Ethnic Group Unknown Author Author , [place] Address Unknown Phone Immunization Unable to retrieve immunization data due to connection failure with Immunization Registry. Please try again later.
--- OUTSIDE RECORDS SUMMARY | 2017-05-10 15:12 | External Medical Summary Rpt ---
Author Author [employer], [place] [employer] [facility] Address Unknown Phone Unavailable Results Troponin I.cardiac [Mass/volume] in Serum or Plasma Observa Value Referen Units Interpr Notes Date tion ce etation Range Troponin 0.00 - ng/mL Normal No May 10 I.cardiac 0.06 inform2016 on in 12:40 PM [Mass/vol source ume] in data Serum or Plasma CBC W Auto Differential panel in Blood Observa Value Referen Units Interpr Notes Date ti ce etation Range Basophils 0 - 0.2 K/MM3 Normal No May 102016 [#/volume on in 12:40 PM ] in source Blood by data Automated count Basophils 0.1 - 2.0 % Normal No May 10 /100 2016 leukocyte on in 12:40 PM s in source Blood by data Automated count Eosinophi 0.0 - 0.4 K/mm3 Normal No May 10 ls 2016 [#/volume on in 12:40 PM ] in source Blood by data Automated count Eosinophi 0.1 - % Normal No May 10 ls/100 12.0 2016 leukocyte on in 12:40 PM s in source Blood by data Automated count Granulocy 1.8 - 7.8 K/mm3 High No May 10 olya 2016 [#/volume on in 12:40 PM ] in source Blood by data Automated count Granulocy 37.0 - % High No May 10 olya/100 80.0 2016 leukocyte on in 12:40 PM s in source Blood by data Automated count Hematocri 37.0 - % Normal No May 10 t [Volume 47.0 2016 on in 12:40 PM Fraction] source of Blood data Hemoglobi 12.2 - g/dL Normal No May 10 n 16.2 2016 [Mass/vol on in 12:40 PM ume] in source Blood data Lymphocyt 0.7 - 4.5 K/mm3 Normal No May 10 es 2016 [#/volume on in 12:40 PM ] in source Unspecifi data ed specimen by Automated count Lymphocyt 10 - 50.0 % Low No May 10 es 2016 [#/volume on in 12:40 PM ] in source Unspecifi data ed specimen by Automated count Erythrocy 27 - 31.2 pg Normal No May 10 te mean 2016 corpuscul on in 12:40 PM ar source hemoglobi data n [Entitic mass] Erythrocy 31.8 - g/dl Normal No May 10 te mean 35.4 2016 corpuscul on in 12:40 PM ar source hemoglobi data n concentra tion [Mass/vol ume] by Automated count Erythrocy 82.2 - fl Normal No May 10 te mean 97.8 2016 corpuscul on in 12:40 PM ar volume source [Entitic data volume] by Automated count Monocytes 0.1 - 1.0 K/mm3 Normal No May 102016 [#/volume on in 12:40 PM ] in source Blood by data Automated count Monocytes 1.7 - 9.3 % Normal No May 10 /100 2016 leukocyte on in 12:40 PM s in source Blood by data Automated count Platelet 7.4 - fl Normal No May 10 mean 10.4 2016 volume on in 12:40 PM [Entitic source volume] data in Blood by Automated count Platelets 142 - 424 K/mm3 No No May 10 informati 2016 [#/volume on in on in 12:40 PM ] in source source Blood data data Erythrocy 4.2 - 5.4 M/mm3 Normal No May 10 olya 2016 [#/volume on in 12:40 PM ] in source Amniotic data fluid Erythrocy 11.5 - % Normal No May 10 te 17.5 2016 distribut on in 12:40 PM ion width source [Entitic data volume] by Automated count Leukocyte 4.8 - K/MM3 High No May 10 s 10.8 2016 [#/volume on in 12:40 PM ] in source Blood data Differential panel, method unspecified - Observa Value Referen Units Interpr Notes Date tion ce etation Range Anisocy 1+ No No No No May 10 tosis informa informa informa informa 2016 [Presen tion in tion in tion in tion in 12:40 ce] in source source source source PM Blood data data data data Neutrophi 0 - 8 % Normal No Dec 5 ls.band informati 2017 form/100 on in 12:40 PM leukocyte source s in data Blood by Automated count Cristela 1+ No No No No Dec 5 cells informa informa informa informa 2016 [Presen tion in tion in tion in tion in 12:40 ce] in source source source source PM Blood data data data data by Light microsc opy LYMPH 4 10 - 50 % Low No Dec 5 informa 2017 tion in 12:40 source PM data Monocytes 2 - 9 % Normal No Dec 5 /100 informati 2017 leukocyte on in 12:40 PM s in source Blood by data Automated count Platele NORMAL No No No No Dec 5 ts informa informa informa informa 2016 [Presen tion in tion in tion in tion in 12:40 ce] in source source source source PM Blood data data data data by Light microsc opy Neutrophi 42 - 76 % High No Dec 5 ls informati 2016 [#/volume on in 12:40 PM ] in source Blood by data Automated count Cells No #CELLS No No Dec 5 Counted informati informati informati 2016 Total [#] on in on in on in 12:40 PM in Blood source source source data data data Comprehensive metabolic 2000 panel in Serum or Plasma Observa Value Referen Units Interpr Notes Date tion ce etation Range Albumin/G 1.1 - 1.8 No Low No Dec 5 lobulin informati inform2016 [Mass on in on in 12:40 PM ratio] in source source Serum or data data Plasma Albumin 3.4 - 5.0 gm/dL Low No Dec 5 [Mass/vol informati 2016 ume] in on in 12:40 PM Serum or source Plasma data Alkaline 46 - 116 U/L Normal No Dec 5 phosphata inform2016 se on in 12:40 PM [Enzymati source c data activity/ volume] in Serum or Plasma Bilirubin 0.2 - 1.0 mg/dL Normal No Dec 5 .total inform2016 [Mass/vol on in 12:40 PM ume] in source Serum or data Plasma Urea 7 - 18 mg/dL High No Dec 5 nitrogen informati 2016 [Mass/vol on in 12:40 PM ume] in source Serum or data Plasma Calcium 8.5 - mg/dL Low No Dec 5 [Mass/vol 10.1 informati 2016 ume] in on in 12:40 PM Serum or source Plasma data Chloride 98 - 107 mmoL/L Normal No May 5 [Moles/vo informati 2017 lume] in on in 12:40 PM Serum or source Plasma data Carbon 21.0 - mmoL/L Low No May 5 dioxide, 32.0 inform2016 total on in 12:40 PM [Moles/vo source lume] in data Serum or Plasma Creatinin 0.55 - mg/dL High No May 10 e 1.02 inform2016 [Mass/vol on in 12:40 PM ume] in source Serum or data Plasma Creatinin 50 - 200 ML/MIN Low No May 10 e renal inform 2017 clearance on in 12:40 PM source predicted data by Cockcroft -Gault formula Estimated 59- ML/MIN Low REFERENCE May 10 RANGE: 2017 glomerula >60 12:40 PM r ML/MIN/1. filtratio 73 SQUARE n rate METERSIf (GF this patient is -A merican, then multiply theresult by 1.210. Globulin 1.3 - 3.2 gm/dL High No May 5 [Mass/vol informati 2016 ume] in on in 12:40 PM Serum source data Glucose 74 - 106 mg/dL High No May 5 [Mass/vol informati 2017 ume] in on in 12:40 PM Serum or source Plasma data Potassium 3.5 - 5.1 mmoL/L Normal No May 5 inform2016 [Moles/vo on in 12:40 PM lume] in source Serum or data Plasma Sodium 136 - 145 mmoL/L Low No May 5 [Moles/vo informati 2017 lume] in on in 12:40 PM Serum or source Plasma data Aspartate 15 - 37 U/L Low No May 102016 aminotran on in 12:40 PM sferase source [Enzymati data c activity/ volume] in Serum or Plasma Alanine 12 - 78 U/L Low No May 10 aminotran inform 2017 sferase on in 12:40 PM [Enzymati source c data activity/ volume] in Serum or Plasma Protein 6.4 - 8.2 gm/dL Low No May 5 [Mass/vol informati 2017 ume] in on in 12:40 PM Serum or source Plasma data Lactate [Moles/volume] in Blood Observa Value Referen Units Interpr Notes Date tion ce etation Range Lactate 0.4 - 2.0 mmol/L Normal No May 10 [Moles/vo informati 2016 lume] in on in 12:40 PM Blood source data Hemoglobin & Hematocrit panel in Blood [...] Interpr Notes Date ti ce etation Range Urea 7 - 18 mg/dL No No May 03 nitrogen informati informati 2016 5:30 [Mass/vol on in on in AM ume] in source source Serum or data data Plasma Calcium 8.5 - mg/dL Low No May 03 [Mass/vol 10.1 informati 2016 5:30 ume] in [...] 74 - 106 mg/dL Normal No May 03 [Mass/vol informati 2016 5:30 ume] in on in AM Serum or source Plasma data Potassium 3.5 - 5.1 mmoL/L Low No May 03 informati 2016 5:30 [Moles/vo on [...] - 2.0 % Normal No May 03 /100 informati 2017 5:30 leukocyte on in AM s in source Blood by data Automated count Eosinophi 0.0 - 0.4 K/mm3 Normal No May 03 ls informati 2016 5:30 [#/volume on in AM ] in source Blood by data Automated count Eosinophi 0.1 - % Normal No May 03 ls/100 12.0 informati 2016 5:30 leukocyte on in AM s in source Blood by data Automated count Granulocy 1.8 - 7.8 K/mm3 Normal No May 03 olya informati 2017 5:30 [#/volume on in AM ] in [...] 0.7 - 4.5 K/mm3 Normal No May 03 es informati 2016 5:30 [#/volume on in AM ] in source Unspecifi data ed specimen by Automated count Lymphocyt 10 - 50.0 % Low No May 03 es informati 2016 5:30 [#/volume [...] count Platelet 7.4 - fl Normal No May 03 mean 10.4 informati 2016 5:30 [...] fluid Erythrocy 11.5 - % High May 03 te 17.5 informati 2016 5:30 distribut on in AM ion width source [Entitic data volume] by Automated count Leukocyte 4.8 - K/MM3 Normal No May 03 s 10.8 informati 2016 5:30 [#/volume on in AM ] in source Blood data Hemoglobin & Hematocrit panel in Blood Observa Value Referen Units Interpr Notes Date ti ce etation Range COMMENTS TO ELECTRICIAN REFINERY: POST TRANSFUSION Hematocri 37.0 - % Low [...] in tion in tion in : W0382 9:51 PM special source source source 17 data data data [id number] prepara RELEASE tion D [Type] 7[place] Blood product special preparation [Type] Observa Value Referen Units Interpr Notes Date ti ce etation Range Blood BLOOD No No No BLOOD May 02 product UNIT informa informa informa UNIT # 2017 RELEASE tion in tion in tion in : 4:40 PM special source source source [id number] data data data [id number] prepara 9 tion RELEASE [Type] D 7[place] ft,Lilia A POS Hemoglobin & Hematocrit panel in Blood Observa Value Referen Units Interpr Notes Date ti ce etation Range Hematocri 37.0 - % Low No May 02 t [Volume 47.0 informati 2017 2:29 on in PM Fraction] source of Blood data Hemoglobi 12.2 - g/dL Low May 02 n 16.2 informati 2017 2:29 [...] count Eosinophi 0.1 - % Normal May 02 ls/100 12.0 informati 2016 6:40 leukocyte on in AM s in source Blood by data Automated count Granulocy 1.8 - 7.8 K/mm3 Normal No May 02 olya informati 2016 6:40 [#/volume on in AM ] in source Blood by data Automated count Granulocy 37.0 - % Normal May 02 olya/100 80.0 informati 2016 6:40 leukocyte on in AM s in source Blood by data Automated count Hematocri 37.0 - % Low May 02 t [Volume 47.0 informati 2017 6:40 on in AM Fraction] source of Blood data Hemoglobi 12.2 - g/dL Low No May 02 n 16.2 informati 2017 6:40 [Mass/vol on in AM ume] in source Blood data Lymphocyt 0.7 - 4.5 K/mm3 Normal No May 02 es informati 2016 6:40 [#/volume on in AM ] in source Unspecifi data ed specimen by Automated count Lymphocyt 10 - 50.0 % Normal No May 02 es informati 2016 6:40 [#/volume on in AM ] in source Unspecifi data ed specimen by Automated count Erythrocy 27 - 31.2 pg Normal No May 02 te mean informati 2017 6:40 corpuscul on in AM ar source hemoglobi data n [Entitic mass] Erythrocy 31.8 - g/dl Normal May 02 te mean 35.4 informati 2017 6:40 corpuscul on in AM ar source hemoglobi data n concentra tion [Mass/vol ume] by Automated count Erythrocy 82.2 - fl Normal May 02 te mean 97.8 informati 2016 6:40 corpuscul on in AM ar volume source [Entitic data volume] by Automated count Monocytes 0.1 - 1.0 K/mm3 Normal May 02 informati 2016 6:40 [#/volume on [...] - 424 K/mm3 Normal May 02 informati 2016 6:40 [#/volume on [...] Automated count Leukocyte 4.8 - K/MM3 Normal May 02 s 10.8 informati 2016 6:40 [...] No Effecti May 02 (Vitamin informati ve 2017 6:00 B12) on in May AM [Mass/vol source 4, 2017 ume] in data the Serum reference interval* *for Vitamin B12 will be changing to: 232-1245 pg/mL.Per formed at: - [facility] [address] [id number] [address] [place], [place] [id number] [employer] Tender: Tian Holt PhD, Phone: [phone] Iron and TIBC Observa Value Referen Units Interpr Notes Date tion ce etation Range Iron 250 - 450 ug/dL Low No May 02 binding informati 2016 6:00 capacity on in AM [Mass/vol source ume] in data Serum or Plasma Iron 118 - 369 ug/dL No May 02 binding informati informati 2016 6:00 capacity. on in on in AM unsaturat source source ed data data [Mass/vol ume] in Serum or Plasma Iron 27 - 139 ug/dL No May 02 [Mass/vol informati informati 2017 6:00 ume] in on in on in AM Serum or source source Plasma data data Iron 15 - 55 % No May 02 saturatio informati informati 2016 6:00 n [Mass] on in on in AM in Serum source source or Plasma data data 25-Hydroxyvitamin D [Mass/volume] in Serum or Plasma Observa Value Referen Units Interpr Notes Date ti ce etation Range 25-Hydrox 30.0 - ng/mL No Vitamin D May 02 yvitamin 100.0 informati 2016 6:00 D on in deficienc AM [Mass/vol source y has ume] in data been Serum or defined Plasma by the [place] [facility] e and an Endocrine Society practice guideline as alevel of serum 25-OH vitamin D less than 20 ng/mL (1,2).The Endocrine Society went on to further define vitamin Dinsuffic iency as a level between 21 and 29 ng/mL (2).1. IOM (Institut e of Medicine) . 2010. Dietary reference intakes for calcium and D. Joe garcia [place]: [employer] al [employer].2. Meclhor MF, Gamal NC, Stephany Singh JUÁREZ, et al.Evalua tion, treatment , and preventio n of vitamin Ddeficien cy: an Endocrine Society clinical practiceg uideline. JCEM. 2010; 96(7):191 1-30.Perf ormed at: CB - [facility] [id number] [place], [place] [id number] [employer] Tender: Tian Holt PhD, Phone: [phone] Hemoglobin & Hematocrit panel in Blood [...] - 2.0 % Normal No May 01 / informati 2016 5:45 leukocyte on in AM s in source Blood by data Automated count Eosinophi 0.0 - 0.4 K/mm3 Normal No May 01 ls informati 2016 5:45 [#/volume on in AM ] in source Blood by data Automated count Eosinophi 0.1 - % Normal No May 01 ls/100 12.0 informati 2016 5:45 [...] count Erythrocy 82.2 - fl Normal May 01 te mean 97.8 informati 2016 5:45 corpuscul on in AM ar volume source [Entitic data volume] by Automated count Monocytes 0.1 - 1.0 K/mm3 Normal May 01 informati 2016 5:45 [#/volume on [...] Platelets 142 - 424 K/mm3 Normal May 01 informati 2016 5:45 [#/volume on in AM ] in source Blood data Erythrocy 4.2 - 5.4 M/mm3 Low May 01 olya informati 2016 5:45 [#/volume [...] Date tion ce etation Range COMMENTS TO ELECTRICIAN REFINERY: 1HR POST HGB/HCT FOLLOWING BLOOD COMPLETION Hematocri 37.0 - % Low May 01 t [Volume 47.0 informati 2016 1:55 on in AM Fraction] source of Blood data Hemoglobi 12.2 - g/dL Low May 01 n 16.2 informati 2016 1:55 [Mass/vol on in AM ume] in source Blood data Blood product special preparation [Type] Observa Value Referen Units Interpr Notes Date tion ce etation Range Blood BLOOD No No BLOOD Apr 30 product UNIT informa informa informa UNIT # 2017 RELEASE tion in tion in in : W0382 10:10 special source source source 17 PM data data data [id number] prepara RELEASE tion D [Type] 7 2210Spa rks,Hank nA POSITIV E Blood product special preparation [Type] Observa Value Referen Units Interpr Notes Date ti ce etation Range Blood BLOOD No No No BLOOD Apr 30 product UNIT informa informa informa UNIT # 2017 RELEASE tion in tion in in : W0382 7:05 PM special source source source 17 data data data [id number] prepara RELEASE tion D [Type] 7 1905Spa rks,Hank nA POSITIV E Blood type & Crossmatch panel in Blood Observa Value Referen Units Interpr Notes Date tion ce etation Range Hold? N Transfuse now? 2 UNITS NOW Major COMPAT No No No No Apr 30 crossma informa informa informa informa 2017 tch tion in tion in tion in on in 5:05 PM [interp source source source [...] Apr 30 crossma informa informa informa informa 2016 tch tion in tion in tion in tion in 5:05 PM [interp source source source source retatio data data data data n] Major COMPAT No No No No Apr 30 crossma informa informa informa informa 2016 tch tion in tion in tion in [...] Apr 30 crossma informa informa informa informa 2016 tch tion in tion in tion in tion in 5:05 PM [interp source source source source retatio data data data data n] Major COMPAT No No No No Apr 30 crossma informa informa informa informa 2016 tch tion in tion in tion in [...] 30 group E E informa informa informa 2016 antibod tion in tion in tion in [...] Apr 30 crossma informa informa informa informa 2016 tch tion in tion in tion in tion in 5:05 PM [interp source source source source retatio data data data data n] Major COMPAT No No No No Apr 30 crossma informa informa informa informa 2016 tch tion in tion in tion in [...] % Normal No Apr 30 /100 informati 2016 9:00 leukocyte on in AM [...] Erythrocy 27 - 31.2 pg Normal Apr 30 te mean informati 2016 9:00 corpuscul on in AM ar source hemoglobi data n [Entitic mass] Erythrocy 31.8 - g/dl Normal No Apr 30 te mean 35.4 informati 2016 9:00 corpuscul on in AM ar source hemoglobi data n concentra tion [Mass/vol ume] by Automated count Erythrocy 82.2 - fl Normal Apr 30 te mean 97.8 informati 2016 9:00 corpuscul on in AM ar volume source [Entitic data volume] by Automated count Monocytes 0.1 - 1.0 K/mm3 Normal No Apr 30 informati 2016 9:00 [#/volume on in AM ] in source Blood by data Automated count Monocytes 1.7 - 9.3 % Normal No Apr 30 inform2016 9:00 leukocyte on in AM s in source Blood by data Automated count Platelet 7.4 - fl Normal Apr 30 mean 10.4 2016 9:00 volume on in AM [Entitic source volume] data in Blood by Automated count Platelets 142 - 424 K/mm3 Normal Apr 302016 9:00 [#/volume on in AM ] in source Blood data Erythrocy 4.2 - 5.4 M/mm3 Low Apr 30 olya 2016 9:00 [#/volume on in AM ] in source Amniotic data fluid Erythrocy 11.5 - % High Apr 30 te 17.5 informati 2016 9:00 distribut on in AM ion [...] count Eosinophi 0.0 - 0.4 K/mm3 Normal Apr 28 ls 2016 [#/volume on in ] in source Blood by data Automated count Eosinophi 0.1 - % Normal Apr 28 ls/100 12.0 2016 leukocyte on in s in source Blood by data Automated count Granulocy 1.8 - 7.8 K/mm3 Normal Apr 282016 [#/volume on in ] in source Blood by data Automated count Granulocy 37.0 - % Normal Apr 28 olya/100 80.0 2016 leukocyte on in s in source Blood by data Automated count Hematocri 37.0 - % Low Apr 28 t [Volume 47.0 2016 on in Fraction] source of Blood data Hemoglobi 12.2 - g/dL Low Apr 28 n 16.2 2016 [Mass/vol on in ume] in source Blood data Lymphocyt 0.7 - 4.5 K/mm3 Normal Apr 28 es 2016 [#/volume on in [...] 5 daphnie DETECTE DETECTE informa informa informa 2016 40+41 D tion in tion in tion in 1:00 AM Ag source source source [PresPepperdata data data data ce] in Stool Aeromon NOT NOT No No No Nov 5 as DETECTE DETECTE informa informa informa 2016 salmoni D tion in tion in tion [...] KACIE A+B [Presen 7 2200 ce] in Luke, [...] 5 ba DETECTE DETECTE informa informa informa 2016 histoly D tion in tion in tion [...] lla sp DETECTE DETECTE informa informa informa 2016 DNA D tion in tion in tion in 1:00 AM [Identi source source source fier] data data data in Unspeci fied specime n by Probe & target amplifi cation method Caliciv NOT NOT No No No Nov 5 irus DETECTE DETECTE informa informa informa 2016 [Identi D tion in tion in tion [...] sp DNA DETECTE DETECTE informa informa informa 2016 [Identi D tion in tion in tion [...] Digoxin 1.15 - ng/mL Low No Apr 09 [Mass/vol 2.56 informati 2017 6:34 ume] in [...] Low No Apr 4 [Mass/vol 10.1 informati 2017 6:34 ume] in on in AM Serum or source Plasma data Chloride 98 - 107 mmoL/L Normal No Apr 4 [Moles/vo informati 2017 6:34 lume] in on in AM Serum or source Plasma data Carbon 21.0 - mmoL/L Low No Apr 4 dioxide, 32.0 informati 2017 6:34 total on in AM [Moles/vo source lume] in data Serum or Plasma Creatinin 0.55 - mg/dL Normal No Apr 4 e 1.02 informati 2017 6:34 [Mass/vol on in AM [...] 74 - 106 mg/dL Normal No Apr 4 [Mass/vol informati 2017 6:34 ume] in on in [...] 0 - 0.2 K/MM3 Normal No Apr 4 informati 2016 6:34 [...] No Apr 09 te mean 35.4 informati 2017 6:34 corpuscul on in AM ar source hemoglobi data n concentra tion [Mass/vol ume] by Automated count Erythrocy 82.2 - fl Normal No Apr 09 te mean 97.8 informati 2017 6:34 corpuscul [...] Platelet 7.4 - fl Normal No Apr 09 mean 10.4 informati 2017 6:34 volume on [...] Erythrocy 11.5 - % Normal No Apr 09 te 17.5 informati 2017 6:34 distribut on [...] 7 - 18 mg/dL High No Nov 3 nitrogen informati 2017 6:12 [Mass/vol on in AM [...] Low No Apr 3 dioxide, 32.0 informati 2016 6:12 total on in AM [Moles/vo source [...] 0.1 - 2.0 % Normal No Apr 3 /100 informati 2017 6:12 leukocyte on in AM s in source Blood by data Automated count Eosinophi 0.0 - 0.4 K/mm3 Normal No Apr 3 ls informati 2016 6:12 [#/volume on in AM [...] Hematocri 37.0 - % Low No Apr 3 t [Volume 47.0 informati 2017 6:12 [...] Normal No Nov 3 mean 10.4 informati 2016 6:12 volume on in AM [Entitic source [...] High No Nov 2 olya/100 80.0 informati 2016 6:20 leukocyte on [...] data data data by Light microsc opy [place] 2+ No No No No Nov 2 [...] mg/dL High No Nov 2 nitrogen informati 2017 6:20 [Mass/vol on in AM ume] in source Serum or data Plasma Calcium 8.5 - mg/dL Low No Nov 2 [Mass/vol 10.1 informati 2017 6:20 ume] in on in AM Serum or source Plasma data Chloride 98 - 107 mmoL/L Normal No Nov 2 [Moles/vo informati 2016 6:20 lume] in [...] Sodium 136 - 145 mmoL/L Low No Nov 2 [Moles/vo informati 2017 6:20 lume] in on in AM Serum or source Plasma data Hemoglobin & Hematocrit panel in Blood Observa Value Referen Units Interpr Notes Date ti ce etation Range Hematocri 37.0 - % [...] source source 17 AM data data data [id number] prepara RELEASE tion D [Type] 7Guthdi e,Buddysamuel HernandezInez A POSITIV E CBC W Auto Differential panel in Blood Observa Value Referen Units Interpr Notes Date tion ce etation Range Basophils 0 - 0.2 K/MM3 Normal No Nov 1 informati 2017 7:11 [#/volume on in AM ] in source Blood by data Automated count Basophils 0.1 - 2.0 % Normal No Nov /100 informati 2017 7:11 leukocyte on in [...] Hematocri 37.0 - % Low No Apr 06 t [Volume 47.0 informati 2017 7:11 on in AM Fraction] source of Blood data Hemoglobi 12.2 - g/dL Low alert Apr 06 n 16.2 2017 7:11 [Mass/vol CRITICAL AM ume] in RESULTS Blood RESU LTS CALLED TO: LITA Regan 04/06/17 0806 [address] Lymphocyt 0.7 - 4.5 K/mm3 Normal No Nov 1 es informati 2017 7:11 [#/volume on in AM ] in source Unspecifi data ed specimen by Automated count Lymphocyt 10 - 50.0 % Low No Apr 1 es informati 2017 7:11 [#/volume on in AM ] in source Unspecifi data ed specimen by Automated count Erythrocy 27 - 31.2 pg Normal No Nov 1 te mean informati 2017 7:11 corpuscul on in AM ar source hemoglobi data n [Entitic mass] Erythrocy 31.8 - g/dl Low No Apr 1 te mean 35.4 informati 2017 7:11 corpuscul on in AM ar source hemoglobi data n concentra tion [Mass/vol ume] by Automated count Erythrocy 82.2 - fl Normal No Apr 1 te mean 97.8 informati 2017 7:11 corpuscul on in AM ar volume source [Entitic data volume] by Automated count Monocytes 0.1 - 1.0 K/mm3 High No Apr 1 informati 2017 7:11 [#/volume on in AM ] in source Blood by data Automated count Monocytes 1.7 - 9.3 % Normal No Apr 1 /100 informati 2017 7:11 leukocyte on in AM s in source Blood by data Automated count Platelet 7.4 - fl Low No Apr 06 mean 10.4 informati 2017 7:11 volume on in AM [Entitic source volume] data in Blood by Automated count Platelets 142 - 424 K/mm3 Normal No Apr 1 informati 2017 7:11 [#/volume on in AM ] in source Blood data Erythrocy 4.2 - 5.4 M/mm3 Low No Apr 1 olya informati 2017 7:11 [#/volume on in AM ] in source Amniotic data fluid Erythrocy 11.5 - % Normal No Apr 06 te 17.5 informati 2017 7:11 distribut on in AM ion width source [Entitic data volume] by Automated count Leukocyte 4.8 - K/MM3 High No Apr 1 s 10.8 alert informati 2017 7:11 [...] etation Range SAMPLES DRAWN LATE DUE TO URBAN ANTHROPOLOGIST BREAK DOWNS Urea 7 - 18 mg/dL High No Apr 05 nitrogen informati 2017 8:07 [Mass/vol on in AM ume] in [...] Normal No Apr 05 dioxide, 32.0 informati 2016 8:07 total on in AM [Moles/vo source lume] in data Serum or Plasma Creatinin 0.55 - mg/dL High No Apr 05 e 1.02 informati 2016 8:07 [Mass/vol on in AM ume] in source Serum or data Plasma Creatinin 50 - 200 ML/MIN Low No Apr 05 e renal informati 2016 8:07 clearance on in AM source predicted [...] etation Range SAMPLES DRAWN LATE DUE TO URBAN ANTHROPOLOGIST BREAKDOWNS Basophils 0 - 0.2 K/MM3 Normal [...] - 9.3 % Normal No Apr 05 /100 informati [...] etation Range SAMPLES DRAWN LATE DUE TO URBAN ANTHROPOLOGIST BREAKDOWNS Acantho 1+ No No No No [...] - 9 % Normal No Apr 05 /ati 2016 8:00 leukocyte on in AM s [...] % High No Apr 05 ls informati 2017 8:00 [#/volume on in AM ] in [...] RELEASE ti in in in : W0382 10:15 special source source source 17 PM data data data [id number] prepara RELEASE tion D [Type] 7[place] n Blood product special preparation [Type] Observa Value Referen Units Interpr Notes Date ti ce etation Range Blood BLOOD No No No BLOOD Apr 04 product UNIT informa informa informa UNIT # 2017 RELEASE ti in in in : W0382 5:42 PM special source source source 17 data data data [id number] prepara RELEASE tion D A [Type] POS10/3 Qui nn,Primo da Blood type & Crossmatch [...] informa informa informa 2017 antibod tion in ti in ti in 3:51 PM y source source source [...] Units Interpr Notes Date ce etation Range Major COMPAT No No [...] Blood Observa Value Referen Units Interpr Notes ce etation Range Major COMPAT No No [...] Units Interpr Notes Date ce etation Range COMMENTS TO ELECTRICIAN REFINERY: use blood drawn from ER if possible Cobalamin 211 - 946 pg/mL No Performed Apr 04 (Vitamin informati at: CB 2016 2:19 B12) on in - [facility] PM [Mass/vol source ume] in data [address] [address] Serum 0 [place], [place] [id number] Stenciling Machine Tender: Tian Holt PhD, Phone: [phone] Iron and TIBC Observa Value Referen Units Interpr Notes Date ti ce etation Range COMMENTS TO ELECTRICIAN REFINERY: use blood drawn from ER if possible Iron 250 - 450 ug/dL No No Apr 04 binding informati informati 2016 2:19 capacity on in on in PM [Mass/vol source source ume] in data data Serum or Plasma Iron 118 - 369 ug/dL No No Apr 04 binding informati inform2016 2:19 capacity. on in on in PM [...] - [facility] PM in Serum or Plasma [address] [address] 0 [place], [place] [id number] Stenciling Machine Tender: Tian Holt PhD, Phone: [phone] Ferritin [Mass/volume] in Serum or Plasma Observa Value Referen Units Interpr Notes Date tion ce etation Range COMMENTS TO ELECTRICIAN REFINERY: use blood drawn from ER if possible Ferritin 8 - 388 ng/mL Normal No Apr 04 [Mass/vol informati 2016 2:19 ume] in on in PM Serum or source Plasma data Reticulocytes [#/volume] in Blood by Automated count Observa Value Referen Units Interpr Notes Date tion ce etation Range COMMENTS TO ELECTRICIAN REFINERY: use blood drawn from ER if possible Reticuloc 0.9 - 3.2 % High No Apr 04 ytes 2016 2:19 [#/volume on in PM ] [...] 0.4 K/mm3 Normal No Apr 04 ls ati 2016 2:19 [#/volume on in PM ] [...] Low No Apr 04 mean 10.4 informati 2017 2:19 volume on in PM [Entitic source volume] data in Blood by Automated count Platelets 142 - 424 K/mm3 High No Mar 30 informati 2017 2:19 [#/volume on in PM ] in source Blood data Erythrocy 4.2 - 5.4 M/mm3 Low No Apr 04 olya informati 2017 2:19 [#/volume on in PM ] in source Amniotic data fluid Erythrocy 11.5 - % Normal No Apr 04 te 17.5 informati 2017 2:19 distribut on in PM ion width [...] Normal No Apr 04 I.cardiac 0.06 informati 2016 2:19 on in [...] mg/dL High No Mar 30 nitrogen informati 2016 2:19 [Mass/vol on in [...] High No Mar 30 e 1.02 informati 2016 2:19 [Mass/vol [...] mmoL/L Normal No Oct 30 [Moles/vo informati 2017 2:19 lume] in on in PM Serum or source Plasma data Aspartate 15 - 37 U/L Low No Apr 04 informati 2017 2:19 aminotran on in PM sferase source [...] [facility] AM [Mass/vol source ume] in data [address] [address] Serum 0 [place], [place] [id number] Stenciling Machine Tender: Tian Holt PhD, Phone: [phone] Iron and TIBC Observa Value Referen [...] High No Mar 9 e 1.02 informati 2016 6:54 [Mass/vol [...] 74 - 106 mg/dL Normal No Mar 14 [Mass/vol informati 2016 6:54 ume] in on [...] 8 - 388 ng/mL Normal No Mar 14 [Mass/vol informati 2016 6:54 ume] in on [...] 0.1 - 2.0 % Normal No Mar 9 /100 informati [...] K/mm3 Normal No Mar 14 es informati 2017 6:54 [#/volume on in AM [...] U/L Normal No Mar 13 phosphata informati 2016 se on in 12:34 PM [Enzymati source [...] - 2.0 % Normal No Mar 13 /100 2016 leukocyte on in 12:34 PM s [...] 0.1 - 1.0 K/mm3 Normal No Mar 13 inform2016 [#/volume on [...] - 424 K/mm3 Normal No Mar 13 inform2016 [#/volume on [...] mmoL/L Normal No Sep 15 [Moles/vo informati 2016 6:45 lume] in on in AM Serum [...] - 0.2 K/MM3 Normal No Sep 14 inform2016 6:00 [#/volume [...] Date tion ce etation Range COMMENTS TO ELECTRICIAN REFINERY: PER DE PROTOCOL Cholester < 200 mg/dL No No [...] Sodium 136 - 145 mmoL/L Normal No Feb 13 [Moles/vo informati 2017 5:45 lume] in [...] 26 - 192 U/L Normal No Feb 12 kinase informati 2017 6:22 [Enzymati on [...] pg/mL High No Feb 12 tic informati 2016 6:22 peptide B [...] K/mm3 Normal No Sep 12 ls informati 2016 6:22 [#/volume on in AM [...] ng/mL High No Sep 11 kinase.MB informati 2016 5:30 on in [...] RESU Plasma LTS CALLED TO: CLA 02/14/17 [address],[place] nda> 0.5 IS CONSISTEN T WITH MYOCARDIA [...] Albumin 3.4 - 5.0 gm/dL Normal No Feb 11 [Mass/vol informati 2017 5:30 ume] in on in PM Serum or source Plasma data Alkaline 46 - 116 U/L Normal No Feb 11 phosphata informati 2017 5:30 se on in PM [Enzymati source c data activity/ volume] in Serum or Plasma Bilirubin 0.2 - 1.0 mg/dL Normal No Feb 11 .total informati 2017 5:30 [Mass/vol on [...] data Carbon 21.0 - mmoL/L Normal No Feb 11 dioxide, 32.0 informati 2016 5:30 total [...] gm/dL Normal No Sep 11 [Mass/vol informati 2016 5:30 [...] Normal No Sep gravity 1.030 informati informati 2016 5:00 of Urine on in on in PM source source data data Urobili 0.2 NEG E.U./dL No No Sep nogen informa informa 2016 [Presen tion in [...] Interpr Notes Date ti ce etation Range Natriutie 0 - 100 [...] Plasma Creatine 0.0 - 3.6 ng/mL No Dec 22 kinase.MB informati informati 2016 [...] - 9.3 % Normal No Dec 21 inform2016 5:00 leukocyte on in PM s [...] pg Normal No Dec 20 te mean informati 2016 corpuscul on in 11:55 AM [...] [Mass/vol informati 2016 ume] in on in 11:20 AM Urine [...] informa 2016 [Presen tion in tion in in 11:20 ce] in source source source [...]
--- OUTSIDE RECORDS SUMMARY | 2017-05-10 15:12 | External Medical Summary Rpt ---
[...] Date ti ce etation Range COMMENTS TO DIGESTER COOK: POST TRANSFUSION Hematocri 37.0 - % Low [...] source source source 17 data data data [id number] prepara RELEASE tion D [Type] 7[place] Blood product special preparation [Type] Observa Value Referen Units Interpr Notes Date ti ce etation Range Blood BLOOD No No No BLOOD May 02 product UNIT informa informa informa UNIT # 2017 RELEASE tion in tion in tion in : 4:40 PM special source source source [id number] data data data [id number] prepara 9 tion RELEASE [Type] D 7[place] [...] to: 232-1245 pg/mL.Per formed at: - [facility] [address] [address] [address] [place], [place] [id number] Bulk Intake Worker: Tian Holt PhD, Phone: [phone] Iron and TIBC Observa Value Referen [...] been Serum or defined Plasma by the [facility] e and an Endocrine Society practice guideline as alevel of serum 25-OH vitamin D less than 20 ng/mL (1,2).The Endocrine Society went on to further define vitamin Dinsuffic iency as a level between 21 and 29 ng/mL (2).1. IOM (Institut e of Medicine) . 2010. Dietary reference intakes for calcium and D. Joe garcia DC: TheNation al Academies Press.2. Melchor MF, Gamal NC, Stephany Singh JUÁREZ, et al.Evalua tion, treatment , and preventio n of vitamin Ddeficien cy: an Endocrine Society clinical practiceg uideline. JCEM. 2010; 96(7):191 1-30.Perf ormed at: CB - [facility] [id number] [place], [place] [id number] Bulk Intake Worker: Tian Holt PhD, Phone: [phone] Hemoglobin & Hematocrit panel in Blood [...] Date tion ce etation Range COMMENTS TO DIGESTER COOK: 1HR POST HGB/HCT FOLLOWING BLOOD COMPLETION Hematocri [...] source source 17 PM data data data [id number] prepara RELEASE tion D [Type] 7 [id number] rks,Hank nA POSITIV E Blood product special preparation [Type] Observa Value Referen Units Interpr Notes Date ti ce etation Range Blood BLOOD No No No BLOOD Apr 30 product UNIT informa informa informa UNIT # 2017 RELEASE tion in tion in in : W0382 7:05 PM special source source source 17 data data data [id number] prepara RELEASE tion D [Type] 7 1905Spa [...] in 1:00 AM Ag source source source [PresGeotender data data data ce] in Stool Aeromon [...] data data data by Light microsc opy [place] 2+ No No No No Nov 2 [...] source source 17 AM data data data [id number] prepara RELEASE tion D [Type] 7Guthdi e,Buddysamuel [...] etation Range SAMPLES DRAWN LATE DUE TO WIRE PRODUCTS INSPECTOR BREAK DOWNS Urea 7 - 18 mg/dL [...] etation Range SAMPLES DRAWN LATE DUE TO WIRE PRODUCTS INSPECTOR BREAKDOWNS Basophils 0 - 0.2 K/MM3 Normal [...] etation Range SAMPLES DRAWN LATE DUE TO WIRE PRODUCTS INSPECTOR BREAKDOWNS Acantho 1+ No No No No [...] source source 17 PM data data data [id number] prepara RELEASE tion D [Type] 7[place] n Blood product special preparation [Type] Observa Value Referen Units Interpr Notes Date ti ce etation Range Blood BLOOD No No No BLOOD Apr 04 product UNIT informa informa informa UNIT # 2017 RELEASE ti in in in : W0382 5:42 PM special source source source 17 data data data [id number] prepara RELEASE tion D A [Type] POS10/3 [...] Notes Date ce etation Range COMMENTS TO DIGESTER COOK: use blood drawn from ER if possible Cobalamin 211 - 946 pg/mL No Performed Apr 04 (Vitamin informati at: CB 2016 2:19 B12) on in - [facility] PM [Mass/vol source ume] in data [address] [address] [address] 0 [place], [place] [id number] Bulk Intake Worker: Tian Holt PhD, Phone: [phone] Iron and TIBC Observa Value Referen Units Interpr Notes Date ti ce etation Range COMMENTS TO DIGESTER COOK: use blood drawn from ER if possible [...] - [facility] PM in Serum or Plasma [address] [address] [address] [place], [place] [id number] Bulk Intake Worker: Tian Holt PhD, Phone: [phone] Ferritin [Mass/volume] in Serum or Plasma Observa Value Referen Units Interpr Notes Date tion ce etation Range COMMENTS TO DIGESTER COOK: use blood drawn from ER if possible Ferritin 8 - 388 ng/mL Normal No Apr 04 [Mass/vol informati 2016 2:19 ume] in on in PM Serum or source Plasma data Reticulocytes [#/volume] in Blood by Automated count Observa Value Referen Units Interpr Notes Date tion ce etation Range COMMENTS TO DIGESTER COOK: use blood drawn from ER if possible [...] [facility] AM [Mass/vol source ume] in data [address] [address] [address] 0 [place], [place] [id number] Bulk Intake Worker: Tian Holt PhD, Phone: [phone] Iron and TIBC Observa Value Referen [...] Date tion ce etation Range COMMENTS TO DIGESTER COOK: PER [place] PROTOCOL Cholester < 200 mg/dL No No [...] - 5.4 M/mm3 Normal No Sep 12 loya informati 2017 6:22 [#/volume on in AM [...] Plasma LTS CALLED TO: CLA 02/14/17 [address],[place] nda> 0.5 IS CONSISTEN T WITH MYOCARDIA [...]
[2017-05-10 16:27] VITALS: BP 96/63
[2017-05-10 16:34] VITALS: BP 96/63
--- NOTE | 2017-05-10 16:43 | HISTORY AND PHYSICAL REPORT ---
Demographics: Admit date: 05/10/17 Chief complaint: Mental status changes PRIMARY DIAGNOSIS: dehydration Allergies: Coded Allergies: No Known Allergies (03/13/17) History of present illness: History of present illness: 87-year-old female presented to the emergency department after being referred from the local [facility]) where she resides. I had been contacted by staff there he noticed the patient did not seem to be her normal level of alertness and had abnormal movements of the RIGHT eye. Patient was transferred to the emergency department. In the ER she would sleep but was easily arousable and could answer questions. Physical exam was rather unremarkable and labs revealed an elevated white blood cell count as well as elevated BUN and creatinine compared to hospital discharge from one week ago. There was also some concern for LEFT lower lobe infiltrate versus atelectasis. Decision was made to rehydrate the patient and avoid IV antibiotics at this time due to recent C. difficile infection. Patient reports diarrhea but ER reported that she had a solid stool in the emergency department. Patient admits to poor appetite with near 20 pound weight loss in the last month Past medical history: Family HX Family Hx Insignificant No Diabetes No CAD Yes Hypertension Yes Hyperlipidemia Yes Cancer Yes TB No Immunization HX DT/Tetanus Unknown Flu 2016/2017 Pneumonia Received In Past General CAD? Yes Angina: Yes VA: Yes Hypertension? Yes Hyperlipidemia? Yes CHF? No DVT? No PE? No COPD? No Asthma? No Anemia? No GERD? No Gastric ulcers? No GI Bleed? No Hernia? No Thyroid Problems? No Hypothyroidism? No CVA? Yes Seizures? No Diabetes? No Renal Insuffiency? No UTI? No Stones? No BPH? No GB Disease: No Nephritic Syndrome? No Asplenia? No Hepatitis? No Sickle Cell Disease? No Arthritis? No Migraines? No Cataracts? No Glaucoma? No MRSA? No HIV? No TB? No Anxiety? No Depression? No Cancer? No More? Yes Additional hx: TREMORS, PARKISONS Past Surgical HX Previous Surgery?Y Coronary Artery Bypass TUBAL LIGATION HYSTERECTOMY CARDIAC STENTS Current home meds: Active Scripts NITROGLYCERIN (Nitrostat) 0.4 MG SL [id number] PRN CHEST PAIN #30 TAB Prov: 12/23/16 Oxazepam 10 MG PO BID #60 CAPSULE Ref 1 Prov: 12/23/16 Carvedilol (Carvedilol 12.5MG) 12.5 MG PO BID #60 TAB Ref 11 Prov: 02/18/17 DIGOXIN (Digox) 0.125 MG PO DAILY #30 TAB Ref 11 Prov: 02/18/17 Ticagrelor (Brilinta) 90 MG PO BID #60 TAB Ref 11 Prov: 02/18/17 Gabapentin (Neurontin 300MG) 300 MG PO QHS #30 CAP Prov: 03/15/17 Pantoprazole Sodium (Pantoprazole 40MG) 40 MG PO BID #60 ECT Ref 2 Prov: 04/09/17 Ferrous Sulfate (Feosol) 325 MG PO DAILY #30 TAB Ref 11 Prov: 04/09/17 Discontinued Scripts Aspirin (Aspirin EC 81MG) 81 MG PO DAILY #30 TABLET Ref 11 Prov: 02/18/17 DC: 05/03/17 1250 Sucralfate (Carafate) 1 GM PO ACHS #120 TAB Ref 2 Prov: 04/09/17 DC: 05/03/17 1250 Reported Medications Cholecalciferol (Vitamin D3) (Vitamin D3) 2,000 UNIT PO DAILY POTASSIUM CHL (Potassium Chloride) 40 MEQ PO BID Gabapentin (Gabapentin 300MG) 300 MG PO DAILY Metoclopramide Hcl (Reglan) 5 MG PO AC ATORVASTATIN CALCIUM (ATORVASTATIN 20MG) 20 MG PO QHS Trazodone Hcl (Trazodone HCl) 150 MG PO QHS Levothyroxine Sodium 0.2 MG PO DAILY Furosemide (Furosemide 40MG) 40 MG PO DAILY Social Hx: Smoking HX Tobacco No Packs/day N/A Alcohol Alcohol: No Hx of Drug Use Drug Use? No Patien't marital status is Patient's support system is good Review of systems: Constitutional no symptoms reported. Respiratory no symptoms reported. Cardiovascular no symptoms reported Gastrointestinal/Abdominal see HPI Genitourinary no symptoms reported. Musculoskeletal no symptoms reported. Neurological Yes: tremors. Exam: Lab data for last 24 hours: Laboratory Tests 05/10/17 1240: Troponin I 0.02 05/10/17 1240: Lactic Acid 1.5 05/10/17 1240: Sodium 135 L, Potassium 3.8, Chloride 103, Carbon Dioxide 18 L, BUN 39 H, Creatinine 1.2 H, Estimated Creat Clear 29 L, Estimated GFR (MDRD) 42 L, Glucose 117 H, Calcium 8.2 L, Total Bilirubin 0.6, AST 8 L, ALT 3 L, Alkaline Phosphatase 102, Total Protein 5.0 L, Albumin 1.7 L, Globulin 3.3 H, Albumin/Globulin Ratio 0.5 L, WBC 16.9 H, RBC 4.44, Hgb 12.6, Hct 37.7, MCV 85.0, RDW 17.5, Plt Count 335, MPV 7.7, Gran % 88.4 H, Gran # 15.0 H, Total Counted 100, Lymphocytes % 5.8 L, Monocytes % 4.6, Eosinophils % 1.0, Basophils % 0.2, Neutrophils 91 H, Band Neutrophils 2, Lymphocytes (Manual) 4 L, Lymphocytes # 1.0, Monocytes (Manual) 3, Monocytes # 0.8, Eosinophils # 0.2, Basophils # 0.0, Platelet Estimate NORMAL, Anisocytosis 1+, [place] Cells 1+, PUBS MCHC 33.5, MCH 28.5 Microbiology 05/10 124 BLOOD: Anaerobic Blood Culture - RECD 05/10 1240 BLOOD: Aerobic Blood Culture - RECD 05/10 1240 BLOOD: Anaerobic Blood Culture - RECD 05/10 1240 BLOOD: Aerobic Blood Culture - RECD Admission vital signs: 1ST Vital Signs Result Date Time Pulse Ox 97 05/10 1137 B/P 102/61 05/10 1137 O2 Flow Rate 2 05/10 1137 Temp 97.6 05/10 113 Pulse 85 05/10 1137 Resp 18 05/10 1137 O2 Delivery ROOM AIR 05/10 1627 Exam General appearance: normal appearance, awake, no acute distress Eyes: anicteric ENT: dry mucous membranes Neck: non-tender, no JVD Cardiovascular: regular rate & rhythm Respiratory: good air movement, normal breath sounds ABD: soft, no tenderness Extremities: moves all Skin: dry, warm Plan: Problem List 1. Dehydration 2. Leukocytosis Plan: Patient will be admitted and placed on gentle IV fluid hydration. She will be monitored closely for signs of developing infection. At present patient does not have any symptoms of pneumonia. Due to recent C. difficile antibiotics will be held. Stool samples will be checked for C. difficile. Urinalysis will be performed. Should white count rise in the morning antibiotics will be started for LEFT lower lobe pneumonia. Should white count decreased I would consider this likely due to rehydration and the patient will not need any antibiotics. I have discussed the care of the patient with family in their understanding. Home medicines will be given
[2017-05-10 17:21] LABS: URINE BILIRUBIN - DIPSTICK NEGATIVE (NEG); URINE BLOOD NEGATIVE (NEG)
[2017-05-10] MEDS ORDERED: CARAFATE 1GM TAB1 GM PO (17:29)
[2017-05-10 18:05] LABS: AEROMONAS NOT DETECTED (NOT DETECTE); ASTROVIRUS NOT DETECTED (NOT DETECTE); CYCLOSPORA CAYETANENSIS NOT DETECTED (NOT DETECTE); E COLI O157 NOT DETECTED (NOT DETECTE); ENTEROAGGREGATIVE E COLI NOT DETECTED (NOT DETECTE); ENTEROPATHOGENIC E COLI NOT DETECTED (NOT DETECTE); ENTEROTOXIGENIC E COLI NOT DETECTED (NOT DETECTE); NOROVIRUS NOT DETECTED (NOT DETECTE); SAPOVIRUS NOT DETECTED (NOT DETECTE); SHIGA-LIKE TOXIN PROD. E COLI NOT DETECTED (NOT DETECTE); SHIGELLA/ENTEROINVASIVE E COLI NOT DETECTED (NOT DETECTE); VIBRIO CHOLERAE NOT DETECTED (NOT DETECTE)
[2017-05-10 19:50] VITALS: BP 122/56
[2017-05-10 20:30] VITALS: BP 122/56
[2017-05-11 04:22] VITALS: BP 94/71
--- NOTE | 2017-05-11 06:58 | RADIOLOGY REPORT PS360 ---
CHEST-PORTABLE HISTORY: Follow-up pneumonia ORDERING PHYSICIAN: Alban Saldivar MD PATIENT AGE: 87 years COMPARISON: 05/10/2017 FINDINGS: Prior median sternotomy. Borderline cardiomegaly with mild ectasia/tortuosity of the aorta. No CHF.. There is been interval improvement in the left basilar airspace disease. The remaining lungs are clear.. No acute bony abnormalities. IMPRESSION: Improved left basilar atelectasis and/or infiltrate
--- NOTE | 2017-05-11 07:14 | PHARMACY CLINIC NOTE ---
Patient Demographics Patient Demographics Admission date: 05/10/17 Date: 05/11/17 Time: 0712 Allergies Coded Allergies: No Known Allergies (03/13/17) HEIGHT- FT: 5 IN: 3.00 K.478 VTE General Information Labs: Laboratory Tests 05/10 1240 Hematology Hgb (12.2 - 16.2 g/dL) 12.6 Hct (37.0 - 47.0 %) 37.7 Plt Count (142 - 424 K/mm3) 335 Disclaimer The following section includes nursing documentation that has been pulled in for pharmacy review. Patient's VTE score: 3 Patient's VTE Risk: LOW RISK Clinical trial participant? No VTE prophylaxis NQF [id number] VTE prophylaxis ordered? Yes Type of prophylaxis/treatment: NIRAV at 0713
--- NOTE | 2017-05-11 07:22 | ACUTE CARE PROGRESS NOTE (QUA) ---
Progress Notes Subjective Date 05/11/17 Time 0720 Note On additional labs performed after admission patient was found to be dig toxic as well as have C. difficile with in her stool. Patient had multiple loose green bowel movements overnight. Vital signs reviewed. Patient awakens easily this morning. She is conversant. Lungs are clear. Heart has a regular rate and rhythm. Abdomen is soft and nontender. Continue gentle IV fluid hydration due to dig toxicity. Await labs this morning. Vancomycin by mouth has been started Objective Findings Last VS-Temp:97.6 B/P:94/71 Pulse:80 Resp:16 SaO2:92 ROOM AIR Last weight lbs:131 oz:2 K.478 Method:Bed Scales Laboratory Tests 05/10/17 1645: Stl Aeromonas (PCR) NOT DETECTED, Stl Cyclospora species NOT DETECTED, Stool Rotavirus (PCR) NOT DETECTED, Stool Astrovirus (PCR) NOT DETECTED, Stool Campylobacter PCR NOT DETECTED, Stool Cryptosporidium PCR NOT DETECTED, Stl E. histolytica PCR NOT DETECTED, Stool Giardia Lamblia PCR NOT DETECTED, Stl P. shigelloides PCR NOT DETECTED, Stool Sapovirus (PCR) NOT DETECTED, Stool Vibrio (PCR) NOT DETECTED, Stl Vibrio cholerae PCR NOT DETECTED, Stl Norovirus GI/GII PCR NOT DETECTED, Adenovirus (PCR) NOT DETECTED, C. difficile Tox (PCR) DETECTED H, E. coli (PCR) NOT DETECTED, Salmonella (PCR) NOT DETECTED, Yersinia (PCR) NOT DETECTED, Urine Color YELLOW, Urine Appearance CLEAR, Urine pH 5.5, Ur Specific [place] 1.010, Urine Protein NEGATIVE, Urine Ketones NEGATIVE, Urine Blood NEGATIVE, Urine Nitrate NEGATIVE, Urine Bilirubin NEGATIVE, Urine Urobilinogen 0.2, Ur Leukocyte Esterase NEGATIVE, Urine RBC NONE, Urine WBC OCC, Ur Squamous Epith Cells 3-5, Urine Bacteria 4+, Hyaline Casts 10-20, Urine Glucose NEGATIVE 05/10/17 1240: Troponin I 0.02 05/10/17 1240: Lactic Acid 1.5 05/10/17 1240: Sodium 135 L, Potassium 3.8, Chloride 103, Carbon Dioxide 18 L, BUN 39 H, Creatinine 1.2 H, Estimated Creat Clear 29 L, Estimated GFR (MDRD) 42 L, Glucose 117 H, Calcium 8.2 L, Total Bilirubin 0.6, AST 8 L, ALT 3 L, Alkaline Phosphatase 102, Total Protein 5.0 L, Albumin 1.7 L, Globulin 3.3 H, Albumin/Globulin Ratio 0.5 L, WBC 16.9 H, RBC 4.44, Hgb 12.6, Hct 37.7, MCV 85.0, RDW 17.5, Plt Count 335, MPV 7.7, Gran % 88.4 H, Gran # 15.0 H, Total Counted 100, Lymphocytes % 5.8 L, Monocytes % 4.6, Eosinophils % 1.0, Basophils % 0.2, Neutrophils 91 H, Band Neutrophils 2, Lymphocytes (Manual) 4 L, Lymphocytes # 1.0, Monocytes (Manual) 3, Monocytes # 0.8, Eosinophils # 0.2, Basophils # 0.0, Platelet Estimate NORMAL, Anisocytosis 1+, [place]ela Cells 1+, PUBS MCHC 33.5, MCH 28.5, Digoxin 3.37 *H Microbiology 05/10 1645 URINE CC: Urine Culture - RES 05/10 1240 BLOOD: Anaerobic Blood Culture - RECD 05/10 1240 BLOOD: Aerobic Blood Culture - RECD 05/10 1240 BLOOD: Anaerobic Blood Culture - RECD 05/10 1240 BLOOD: Aerobic Blood Culture - RECD Assessment/Plan Problem List 1. Dehydration 2. Leukocytosis Patient condition Improving Plan: continue current care This inpt stay is expected to cross 2 MNs from start of care Yes at 0721
[2017-05-11 07:48] VITALS: BP 84/47
[2017-05-11 07:58] VITALS: BP 84/47
[2017-05-11] MEDS ORDERED: ALDACTONE 25MG25 MG NG (07:59)
[2017-05-11 08:36] LABS: HEMOGLOBIN 12.9 g/dL (12.2-16.2); LYMPH # 1.2 K/mm3 (0.7-4.5); LYMPH % 6.4 % (10-50.0)
[2017-05-11 16:00] VITALS: BP 84/37
[2017-05-11 20:30] VITALS: BP 94/62
[2017-05-12 04:30] VITALS: BP 105/58
--- NOTE | 2017-05-12 07:21 | ACUTE CARE PROGRESS NOTE (QUA) ---
Progress Notes Subjective Date 05/12/17 Time 0719 Note Patient denies abdominal pain or shortness of breath this morning. Her only complaint is the IV alarm repeatedly is going off and she finds that aggravating. Vital signs reviewed. Lungs are clear. Heart has a regular rate and rhythm. Abdomen is soft and nontender with active bowel sounds. Complete blood count is pending Patient is stable. Continue vancomycin for her C. difficile. Await complete blood count. Patient is likely discharge this afternoon back to [facility] Objective Findings Last VS-Temp:97.6 B/P:105/58 Pulse:86 Resp:16 SaO2:92 ROOM AIR Last weight lbs:131 oz:2 K.478 Method:Bed Scales Laboratory Tests Assessment/Plan Problem List 1. Dehydration 2. Leukocytosis 3. C. difficile diarrhea Patient condition Stable Plan: continue current care This inpt stay is expected to cross 2 MNs from start of care Yes at 0720
[2017-05-12 07:43] LABS: HEMOGLOBIN 12.2 g/dL (12.2-16.2); LYMPH # 1.3 K/mm3 (0.7-4.5); LYMPH % 6.4 % (10-50.0)
--- NOTE | 2017-05-12 07:47 | Discharge Summary ---
Demographics Admit date: 05/10/17 Discharge date: 05/12/17 Discharge diagnoses Problem List 1. C. difficile diarrhea 2. Dehydration 3. Leukocytosis History of present illness History of present illness 87-year-old female presented to the emergency department after being referred from the local alf ([facility]) where she resides. I had been contacted by staff there he noticed the patient did not seem to be her normal level of alertness and had abnormal movements of the RIGHT eye. Patient was transferred to the emergency department. In the ER she would sleep but was easily arousable and could answer questions. Physical exam was rather unremarkable and labs revealed an elevated white blood cell count as well as elevated BUN and creatinine compared to hospital discharge from one week ago. There was also some concern for LEFT lower lobe infiltrate versus atelectasis. Decision was made to rehydrate the patient and avoid IV antibiotics at this time due to recent C. difficile infection. Patient reports diarrhea but ER reported that she had a solid stool in the emergency department. Patient admits to poor appetite with near 20 pound weight loss in the last month. Patient was admitted and placed on IV fluids. She was found to be dig toxic which likely explain mental status changes as well as malaise. BUN and creatinine supported dehydration. Over 24 hours patient's BUN and creatinine improved. On admission there was concern about LEFT lower lobe infiltrate but due to recent C. difficile infection antibiotics were held in favor of repeating chest x-ray the following morning since patient did not have any respiratory symptoms. Chest x-ray the following morning showed improvement in the LEFT lower lobe atelectasis. Urinalysis was negative for infection. Infectious workup did reveal C. difficile contamination of stool. While hospitalized patient had multiple loose green bowel movements. Patient was started on vancomycin 125 mg every 6 hours. She will need to continue a 2 week course of vancomycin. On the seventh the patient was discharged back to [facility]. Mental status: Average Prognosis: Fair Rehab potential: Fair Medications Medications: Discharge meds are as noted. Follow up Follow up in office in: to be seen at facility with: Alban Saldivar MD at [phone]
[2017-05-12] MEDS ORDERED: VANCOCIN HCL P125 MG PO (07:49)
[2017-05-12 08:00] VITALS: BP 95/56
[2017-05-12 08:30] LABS: NEUTROPHILS 87 % (42-76)
[2017-05-12 11:59] VITALS: BP 95/56
== END 2017-05-12 11:25 ==
LOC: ER 11:32 → 2ND 14:50
PROVIDERS: Emergency Medicine; Family Medicine
DX: E86.0 Dehydration (principal); I25.10 Atherosclerotic heart disease of native coronary artery without angina pectoris; I25.2 Old myocardial infarction; G20 Parkinson's disease; Z82.49 Family history of ischemic heart disease and other diseases of the circulatory system; E78.5 Hyperlipidemia, unspecified; A04.72 Enterocolitis due to Clostridium difficile, not specified as recurrent; R41.0 Disorientation, unspecified; Z83.49 Family history of other endocrine, nutritional and metabolic diseases; Z80.9 Family history of malignant neoplasm, unspecified; Z95.1 Presence of aortocoronary bypass graft; Z95.5 Presence of coronary angioplasty implant and graft; Z90.710 Acquired absence of both cervix and uterus
CPT/HCPCS: G0378; J3370